=== PATIENT | male | born 1980 | race Caucasian/White ===

== ENCOUNTER 2020-02-23 02:58 | Outpatient (RCR) | payer BC, SELFPAY | END 2020-02-26 23:59 | disposition home or self-care (01) | LOC: INF 02:58 | PROVIDERS: PCP Nurse Practitioner Family; Visit Provider Internal Medicine Hematology & Oncology | DX: Z53.9 Procedure and treatment not carried out, unspecified reason (principal) ==

== ENCOUNTER 2020-03-27 02:01 | Outpatient (RCR) | payer BC, SELFPAY ==
[2020-02-28] MEDS: Normal Saline Flush 10 ML SYR IVP (10:17)
[2020-02-28] MEDS: Heparin 500 UNITS/5 ML SYRINGE IV (10:18)
[2020-02-28 10:22] LABS: Abs Immature Grans 0.03 10^3/uL (0.0-0.06); Absolute Basophil Count 0.04 10^3/uL (0.0-0.2); Absolute Eosinophil Count 0.44 10^3/uL (0.0-0.7); Absolute Lymphocyte Count 2.18 10^3/uL (1.2-3.4); Absolute Monocyte Count 0.47 10^3/uL (0.1-0.8); Absolute Neutrophil Count 3.96 10^3/uL (1.2-6.7); Basophils % 0.6; Eosinophils % 6.2; HCT 40.5 % (40.0-50.0); HGB 13.7 g/dL (13.5-17.5); Immature Grans % 0.4; Lymphocytes % 30.6; MCH 29.1 pg (27.0-33.0); MCHC 33.8 % (32.0-36.0); MCV 86.2 fL (80-95); MPV 8.8 fL (8.0-11.0); Monocytes % 6.6; Neutrophils % 55.6; Nucleated RBC 0 %; Platelet Count 270 10^3/uL (130-400); RDW 12.7 % (11.8-14.1); RDW-SD 40.4 fL; WBC 7.12 10^3/uL (4.4-10.8)
[2020-02-28 10:34] LABS: ALT 63 U/L (16-63); AST 31 U/L (15-37); Albumin 3.7 g/dL (3.4-5.0); Alkaline Phosphatase 104 U/L (46-116); Anion Gap 6.7 mmol/L (3-11); BUN 19 mg/dL (7-18); Bilirubin, Total 0.5 mg/dL (0.2-1.0); CO2 27.3 mmol/L (21.0-32.0); CREATININE 0.95 mg/dL (0.70-1.30); Calcium 8.9 mg/dL (8.5-10.1); Chloride 103 mmol/L (98-107); Glucose 88 mg/dL (74-106); Potassium 4.2 mmol/L (3.5-5.1); Sodium 137 mmol/L (136-145); Total Protein 7.9 g/dL (6.4-8.2)
[2020-03-06 09:31] LABS: Abs Immature Grans 0.04 10^3/uL (0.0-0.06); Absolute Basophil Count 0.03 10^3/uL (0.0-0.2); Absolute Eosinophil Count 0.15 10^3/uL (0.0-0.7); Absolute Lymphocyte Count 1.37 10^3/uL (1.2-3.4); Absolute Monocyte Count 0.73 10^3/uL (0.1-0.8); Absolute Neutrophil Count 7.14 10^3/uL (1.2-6.7); Basophils % 0.3; Eosinophils % 1.6; HCT 39.9 % (40.0-50.0); HGB 13.8 g/dL (13.5-17.5); Immature Grans % 0.4; Lymphocytes % 14.5; MCH 29.2 pg (27.0-33.0); MCHC 34.6 % (32.0-36.0); MCV 84.5 fL (80-95); MPV 8.8 fL (8.0-11.0); Monocytes % 7.7; Neutrophils % 75.5; Nucleated RBC 0 %; Platelet Count 313 10^3/uL (130-400); RBC 4.72 10^6/uL (4.36-5.78); RDW 12.2 % (11.8-14.1); RDW-SD 37.4 fL; WBC 9.46 10^3/uL (4.4-10.8)
[2020-03-06 09:54] LABS: ALT 47 U/L (16-63); AST 21 U/L (15-37); Albumin 3.6 g/dL (3.4-5.0); Alkaline Phosphatase 99 U/L (46-116); Anion Gap 8.6 mmol/L (3-11); BUN 25 mg/dL (7-18); Bilirubin, Total 0.7 mg/dL (0.2-1.0); CO2 28.4 mmol/L (21.0-32.0); CREATININE 1.01 mg/dL (0.70-1.30); Calcium 8.8 mg/dL (8.5-10.1); Chloride 102 mmol/L (98-107); Glucose 83 mg/dL (74-106); Magnesium 1.8 mg/dL (1.8-2.4); Potassium 3.9 mmol/L (3.5-5.1); Sodium 139 mmol/L (136-145); Total Protein 7.7 g/dL (6.4-8.2)
[2020-03-06] MEDS: Normal Saline Flush 10 ML SYR IVP (09:57)
[2020-03-13 10:01] LABS: Abs Immature Grans 0.02 10^3/uL (0.0-0.06); Absolute Basophil Count 0.05 10^3/uL (0.0-0.2); Absolute Eosinophil Count 0.14 10^3/uL (0.0-0.7); Absolute Lymphocyte Count 0.71 10^3/uL (1.2-3.4); Absolute Monocyte Count 0.68 10^3/uL (0.1-0.8); Absolute Neutrophil Count 6.24 10^3/uL (1.2-6.7); Basophils % 0.6; Eosinophils % 1.8; HCT 37.3 % (40.0-50.0); Immature Grans % 0.3; Lymphocytes % 9.1; MCH 29.1 pg (27.0-33.0); MCHC 34.9 % (32.0-36.0); MCV 83.4 fL (80-95); MPV 9.1 fL (8.0-11.0); Monocytes % 8.7; Neutrophils % 79.5; Nucleated RBC 0 %; Platelet Count 322 10^3/uL (130-400); RBC 4.47 10^6/uL (4.36-5.78); RDW 11.8 % (11.8-14.1); RDW-SD 35.7 fL; WBC 7.84 10^3/uL (4.4-10.8)
[2020-03-13 10:18] LABS: ALT 40 U/L (16-63); AST 19 U/L (15-37); Albumin 3.7 g/dL (3.4-5.0); Alkaline Phosphatase 94 U/L (46-116); Anion Gap 7.8 mmol/L (3-11); BUN 25 mg/dL (7-18); Bilirubin, Total 0.6 mg/dL (0.2-1.0); CO2 28.2 mmol/L (21.0-32.0); Calcium 9.4 mg/dL (8.5-10.1); Chloride 100 mmol/L (98-107); Glucose 99 mg/dL (74-106); Potassium 4.1 mmol/L (3.5-5.1); Sodium 136 mmol/L (136-145); Total Protein 8.2 g/dL (6.4-8.2)
[2020-03-13] MEDS: Normal Saline Flush 10 ML SYR IVP (10:25)
[2020-03-20] MEDS: Normal Saline Flush 10 ML SYR IVP (10:18)
[2020-03-20 10:28] LABS: Abs Immature Grans 0.02 10^3/uL (0.0-0.06); Absolute Basophil Count 0.03 10^3/uL (0.0-0.2); Absolute Eosinophil Count 0.21 10^3/uL (0.0-0.7); Absolute Lymphocyte Count 0.88 10^3/uL (1.2-3.4); Absolute Monocyte Count 0.47 10^3/uL (0.1-0.8); Absolute Neutrophil Count 4.08 10^3/uL (1.2-6.7); Basophils % 0.5; Eosinophils % 3.7; HCT 35.7 % (40.0-50.0); HGB 12.6 g/dL (13.5-17.5); Immature Grans % 0.4; Lymphocytes % 15.5; MCH 29.6 pg (27.0-33.0); MCHC 35.3 % (32.0-36.0); MPV 8.9 fL (8.0-11.0); Monocytes % 8.3; Neutrophils % 71.6; Nucleated RBC 0 %; Platelet Count 275 10^3/uL (130-400); RBC 4.25 10^6/uL (4.36-5.78); RDW 11.9 % (11.8-14.1); RDW-SD 35.2 fL; WBC 5.69 10^3/uL (4.4-10.8)
[2020-03-20 10:41] LABS: ALT 55 U/L (16-63); AST 26 U/L (15-37); Albumin 3.5 g/dL (3.4-5.0); Alkaline Phosphatase 94 U/L (46-116); Anion Gap 7.3 mmol/L (3-11); BUN 20 mg/dL (7-18); Bilirubin, Total 0.5 mg/dL (0.2-1.0); CO2 28.7 mmol/L (21.0-32.0); CREATININE 1.14 mg/dL (0.70-1.30); Chloride 100 mmol/L (98-107); Glucose 123 mg/dL (74-106); Magnesium 1.9 mg/dL (1.8-2.4); Potassium 3.7 mmol/L (3.5-5.1); Sodium 136 mmol/L (136-145); Total Protein 7.8 g/dL (6.4-8.2)
[2020-03-27 09:33] LABS: Abs Immature Grans 0.01 10^3/uL (0.0-0.06); Absolute Basophil Count 0.03 10^3/uL (0.0-0.2); Absolute Eosinophil Count 0.06 10^3/uL (0.0-0.7); Absolute Monocyte Count 0.36 10^3/uL (0.1-0.8); Absolute Neutrophil Count 3.22 10^3/uL (1.2-6.7); Basophils % 0.7; Eosinophils % 1.4; HCT 32.4 % (40.0-50.0); HGB 11.5 g/dL (13.5-17.5); Immature Grans % 0.2; MCH 29.9 pg (27.0-33.0); MCHC 35.5 % (32.0-36.0); MCV 84.2 fL (80-95); MPV 8.9 fL (8.0-11.0); Monocytes % 8.6; Neutrophils % 77.1; Nucleated RBC 0 %; Platelet Count 186 10^3/uL (130-400); RBC 3.85 10^6/uL (4.36-5.78); RDW 12.2 % (11.8-14.1); RDW-SD 35.6 fL; WBC 4.18 10^3/uL (4.4-10.8)
[2020-03-27 09:56] LABS: ALT 50 U/L (16-63); AST 23 U/L (15-37); Albumin 3.5 g/dL (3.4-5.0); Alkaline Phosphatase 86 U/L (46-116); BUN 20 mg/dL (7-18); Bilirubin, Total 0.6 mg/dL (0.2-1.0); CREATININE 1.03 mg/dL (0.70-1.30); Calcium 8.9 mg/dL (8.5-10.1); Chloride 102 mmol/L (98-107); Glucose 131 mg/dL (74-106); Magnesium 1.8 mg/dL (1.8-2.4); Potassium 3.7 mmol/L (3.5-5.1); Sodium 136 mmol/L (136-145); Total Protein 7.6 g/dL (6.4-8.2)
[2020-03-27] MEDS: Normal Saline Flush 10 ML SYR IVP (10:17)
== END 2020-03-27 23:59 | disposition home or self-care (01) ==
LOC: INF 02:01
PROVIDERS: PCP Nurse Practitioner Family; Visit Provider Internal Medicine Hematology & Oncology
DX: C09.9 Malignant neoplasm of tonsil, unspecified (principal); Z45.2 Encounter for adjustment and management of vascular access device
CPT/HCPCS: 36591; 80053; 83735; 85025

== ENCOUNTER 2020-04-17 01:44 | Outpatient (RCR) | payer BC, SELFPAY ==
[2020-04-03] MEDS: Normal Saline Flush 10 ML SYR IVP (09:49)
[2020-04-03 10:02] LABS: Abs Immature Grans 0.01 10^3/uL (0.0-0.06); Absolute Basophil Count 0.02 10^3/uL (0.0-0.2); Absolute Eosinophil Count 0.06 10^3/uL (0.0-0.7); Absolute Neutrophil Count 3.29 10^3/uL (1.2-6.7); Basophils % 0.5; Eosinophils % 1.4; HGB 10.9 g/dL (13.5-17.5); Immature Grans % 0.2; Lymphocytes % 11.7; MCH 29.6 pg (27.0-33.0); MCHC 35.2 % (32.0-36.0); MCV 84.2 fL (80-95); MPV 9.2 fL (8.0-11.0); Monocytes % 9.3; Neutrophils % 76.9; Nucleated RBC 0 %; Platelet Count 167 10^3/uL (130-400); RBC 3.68 10^6/uL (4.36-5.78); RDW-SD 36.8 fL; WBC 4.28 10^3/uL (4.4-10.8)
[2020-04-03 10:29] LABS: ALT 47 U/L (16-63); AST 23 U/L (15-37); Albumin 3.5 g/dL (3.4-5.0); Alkaline Phosphatase 97 U/L (46-116); BUN 23 mg/dL (7-18); Bilirubin, Total 0.6 mg/dL (0.2-1.0); CREATININE 1.13 mg/dL (0.70-1.30); Calcium 9.4 mg/dL (8.5-10.1); Chloride 100 mmol/L (98-107); Glucose 128 mg/dL (74-106); Magnesium 1.8 mg/dL (1.8-2.4); Potassium 3.7 mmol/L (3.5-5.1); Sodium 136 mmol/L (136-145)
[2020-04-10] MEDS: Normal Saline Flush 10 ML SYR IVP (09:35)
[2020-04-10 09:37] LABS: Abs Immature Grans 0.01 10^3/uL (0.0-0.06); Absolute Basophil Count 0.01 10^3/uL (0.0-0.2); Absolute Eosinophil Count 0.02 10^3/uL (0.0-0.7); Absolute Lymphocyte Count 0.51 10^3/uL (1.2-3.4); Absolute Monocyte Count 0.33 10^3/uL (0.1-0.8); Basophils % 0.3; Eosinophils % 0.6; HCT 30.6 % (40.0-50.0); HGB 10.9 g/dL (13.5-17.5); Immature Grans % 0.3; Lymphocytes % 15.5; MCH 30.8 pg (27.0-33.0); MCHC 35.6 % (32.0-36.0); MCV 86.4 fL (80-95); MPV 8.8 fL (8.0-11.0); Monocytes % 10.1; Neutrophils % 73.2; Nucleated RBC 0 %; Platelet Count 198 10^3/uL (130-400); RBC 3.54 10^6/uL (4.36-5.78); RDW 13.9 % (11.8-14.1); RDW-SD 41.6 fL; WBC 3.28 10^3/uL (4.4-10.8)
[2020-04-10 09:50] LABS: ALT 35 U/L (16-63); AST 18 U/L (15-37); Albumin 3.5 g/dL (3.4-5.0); Alkaline Phosphatase 89 U/L (46-116); Anion Gap 6.3 mmol/L (3-11); BUN 23 mg/dL (7-18); Bilirubin, Total 0.7 mg/dL (0.2-1.0); CO2 27.7 mmol/L (21.0-32.0); CREATININE 1.11 mg/dL (0.70-1.30); Calcium 9.3 mg/dL (8.5-10.1); Chloride 101 mmol/L (98-107); Glucose 94 mg/dL (74-106); Magnesium 1.7 mg/dL (1.8-2.4); Potassium 4.2 mmol/L (3.5-5.1); Sodium 135 mmol/L (136-145); Total Protein 8.6 g/dL (6.4-8.2)
[2020-04-17 12:24] LABS: Abs Immature Grans 0.01 10^3/uL (0.0-0.06); Absolute Basophil Count 0.01 10^3/uL (0.0-0.2); Absolute Eosinophil Count 0.04 10^3/uL (0.0-0.7); Absolute Monocyte Count 0.67 10^3/uL (0.1-0.8); Absolute Neutrophil Count 2.81 10^3/uL (1.2-6.7); Basophils % 0.2; HCT 29.2 % (40.0-50.0); HGB 10.5 g/dL (13.5-17.5); Immature Grans % 0.2; Lymphocytes % 12.4; MCH 31.3 pg (27.0-33.0); MCV 87.2 fL (80-95); MPV 8.2 fL (8.0-11.0); Monocytes % 16.6; Neutrophils % 69.6; Nucleated RBC 0 %; Platelet Count 195 10^3/uL (130-400); RBC 3.35 10^6/uL (4.36-5.78); RDW 15.3 % (11.8-14.1); RDW-SD 45.3 fL; WBC 4.04 10^3/uL (4.4-10.8)
[2020-04-17] MEDS: Normal Saline Flush 10 ML SYR IVP (12:28)
[2020-04-17 12:51] LABS: ALT 27 U/L (16-63); AST 15 U/L (15-37); Albumin 3.3 g/dL (3.4-5.0); Alkaline Phosphatase 90 U/L (46-116); Anion Gap 5.2 mmol/L (3-11); BUN 27 mg/dL (7-18); Bilirubin, Total 0.5 mg/dL (0.2-1.0); CO2 29.8 mmol/L (21.0-32.0); CREATININE 1.09 mg/dL (0.70-1.30); Calcium 9.2 mg/dL (8.5-10.1); Chloride 98 mmol/L (98-107); Glucose 117 mg/dL (74-106); Potassium 4.2 mmol/L (3.5-5.1); Sodium 133 mmol/L (136-145); Total Protein 8.4 g/dL (6.4-8.2)
== END 2020-04-27 23:59 | disposition home or self-care (01) ==
LOC: INF 01:44
PROVIDERS: PCP Nurse Practitioner Family; Visit Provider Internal Medicine Hematology & Oncology
DX: C09.9 Malignant neoplasm of tonsil, unspecified (principal); Z45.2 Encounter for adjustment and management of vascular access device
CPT/HCPCS: 36591; 80053; 83735; 85025

== ENCOUNTER 2020-04-24 15:21 | Outpatient (CLI) | payer BC, SELFPAY ==
--- NOTE | 2020-04-24 11:51 | DI.RAD_ITS ---
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 TECHNIQUE: 2D digital imaging was performed. COMPARISON: No exams were available for comparison FINDINGS: Heart size is normal. The mediastinum is not widened. Lungs are clear. No infiltrates nor pleural effusions. There are no ominous pulmonary nodules. Distal tip of the right sided Port-A-Cath is at the SVC-RA junction. IMPRESSION: No acute pulmonary findings.Distal tip of the right sided Port-A-Cath is in satisfactory position. DATA REPOSITORY: RADIATION DOSE DELIVERED:
== END 2020-04-24 15:41 ==
PROVIDERS: PCP Nurse Practitioner Family; Visit Provider Internal Medicine Hematology & Oncology
DX: C09.9 Malignant neoplasm of tonsil, unspecified (principal); R04.2 Hemoptysis
CPT/HCPCS: 71046

== ENCOUNTER 2020-05-01 03:10 | Outpatient (RCR) | payer BC, SELFPAY | END 2020-05-28 23:59 | disposition home or self-care (01) | LOC: INF 03:10 | PROVIDERS: PCP Nurse Practitioner Family; Visit Provider Internal Medicine Hematology & Oncology | DX: Z53.9 Procedure and treatment not carried out, unspecified reason (principal) ==

== ENCOUNTER 2020-06-26 02:21 | Outpatient (CLI) | payer BC, SELFPAY ==
--- NOTE | 2020-06-26 09:04 | DI.RAD_ITS ---
EXAM: XR CHEST 2V PA LATERAL CLINICAL HISTORY: ASPIRATION PNEUMONIA RLL,J69.0,CHEST TIGHTNESS,R07.89,H/O HEAD AND NECK CA, TECHNIQUE: 2D digital imaging was performed. COMPARISON: CR XR CHEST 2V PA LATERAL from 04/24/2020 FINDINGS: MEDIASTINUM: Normal. HEART: Normal. PULMONARY VASCULATURE: Normal. LUNGS: Clear. PLEURAL SPACE: No pleural effusion or pneumothorax. BONE:Within normal limits for the patient's age. OTHER FINDINGS:The tip of the indwelling central venous catheter is in good position at the junction of the superior vena cava and right atrium. IMPRESSION: No acute pulmonary findings. DATA REPOSITORY: RADIATION DOSE DELIVERED:
== END 2020-06-26 02:41 ==
PROVIDERS: PCP Nurse Practitioner Family; Visit Provider Internal Medicine Hematology & Oncology
DX: R07.89 Other chest pain (principal); J69.0 Pneumonitis due to inhalation of food and vomit; Z85.89 Personal history of malignant neoplasm of other organs and systems
CPT/HCPCS: 71046

== ENCOUNTER 2021-12-10 16:00 | Outpatient (CLI) | payer BC, SELFPAY ==
[2021-12-10 17:20] LABS: TSH 36.43 uIU/mL (0.36-3.74)
== END 2021-12-10 16:01 | disposition home or self-care (01) ==
LOC: LBO 16:02
PROVIDERS: PCP Nurse Practitioner Family; Visit Provider Internal Medicine Hematology & Oncology
DX: I73.00 Raynaud's syndrome without gangrene (principal); K11.7 Disturbances of salivary secretion
CPT/HCPCS: 36415; 84443

== ENCOUNTER 2024-05-10 03:14 | Outpatient (CLI) | payer BC, SELFPAY ==
[2024-05-10 08:45] LABS: Abs Immature Grans 0.03 10^3/uL (0.0-0.06); Absolute Basophil Count 0.05 10^3/uL (0.0-0.2); Absolute Eosinophil Count 0.35 10^3/uL (0.0-0.7); Absolute Lymphocyte Count 1.47 10^3/uL (1.2-3.4); Absolute Monocyte Count 0.46 10^3/uL (0.1-0.8); Basophils % 0.7 %; Eosinophils % 4.6 %; HCT 45.1 % (40.0-50.0); HGB 14.9 g/dL (13.5-17.5); Immature Grans % 0.4 %; Lymphocytes % 19.4 %; MCV 85 fL (80-95); MPV 8.1 fL (8.0-11.0); Monocytes % 6.1 %; Neutrophils % 68.8 %; Platelet Count 379 10^3/uL (130-400); RBC 5.32 10^6/uL (4.36-5.78); RDW 12.8 % (11.8-14.1); RDW-SD 39.3 fL; WBC 7.56 10^3/uL (4.4-10.8)
[2024-05-10 09:14] LABS: ALT 36 U/L (16-63); AST 67 U/L (15-37); Albumin 3.1 g/dL (3.4-5.0); Alkaline Phosphatase 118 U/L (46-116); BUN 21 mg/dL (7-18); Bilirubin, Total 0.47 mg/dL (0.2-1.0); CREATININE 1.4 mg/dL (0.70-1.30); Calcium 9.6 mg/dL (8.5-10.1); Chloride 105 mmol/L (98-107); Estimated GFR 64.36 (mL/min/1.73m2); FREE T4 0.89 ng/dL (0.76-1.46); Glucose 95 mg/dL (74-106); Potassium 4.7 mmol/L (3.5-5.1); Sodium 141 mmol/L (136-145); TSH 10.14 uIU/mL (0.36-3.74); Total Protein 7.5 g/dL (6.4-8.2)
== END 2024-05-10 03:15 | disposition home or self-care (01) ==
LOC: LBO 03:15
PROVIDERS: PCP Family Medicine; Visit Provider Internal Medicine Hematology
DX: C34.91 Malignant neoplasm of unspecified part of right bronchus or lung (principal); Z79.899 Other long term (current) drug therapy
CPT/HCPCS: 36415; 80053; 84439; 84443; 85025

== ENCOUNTER 2024-05-14 09:51 | Inpatient (IN) | payer BC, SELFPAY ==
[2024-05-14] VITALS (41 sets, daily range): BP systolic 90–148; BP diastolic 60–88; PULSE 79–102; RESP 9–25; TEMP 36.3–37.3; O2SAT 81–100
--- NOTE | 2024-05-14 | DI.RAD_ITS ---
Exam(s) XR PORTABLE CHEST AP EXAM: XR PORTABLE CHEST AP CLINICAL HISTORY: Right-sided thoracentesis TECHNIQUE: 2D digital imaging was performed of the chest. One image was obtained. An AP view was ob tained. COMPARISON: CR XR CHEST 2V PA LATERAL from 05/14/2024 FINDINGS: MEDIASTINUM: Normal. HEART: Normal. PULMONARY VASCULATURE: Normal. LUNGS: The right lung is clear. PLEURAL SPACE: There is been interval decrease in size of the right pleural effusion following thorac entesis. There remains, however, a large effusion occupying half of the right hemithorax. No left p leural effusion is seen. There is no pneumothorax. BONE:Within normal limits for the patient's age. OTHER FINDINGS:Normal. IMPRESSION: Interval decrease in size of the right pleural effusion following thoracentesis. There remains, shields zoe, a large persistent right pleural effusion occupying half of the right hemithorax. No pneumothor ax. DATA REPOSITORY: RADIATION DOSE DELIVERED:
--- NOTE | 2024-05-14 09:45 | RT.EKG_ITS ---
APPROVED REPORT Exam: Resting ECG Reason for Exam: Dyspnea Patient Location: E HR:101 bpm ECG Measurements Heart Rate 101 AXIS MD 130 P 56 QRSd 100 QRS 123 QT 330 T 15 QTc 427 Conclusion Sinus tachycardia...rate> 99
--- NOTE | 2024-05-14 10:11 | ED.GENADUL_ITS ---
Discharge Plan Disposition Patient Disposition: Admit to [facility] Condition: Fair Discharge Details Clinical Impression: Pleural effusion on right, Lung cancer, Respiratory failure Primary Care Provider: Jose Angel Hopkins ED Provider: Kurt Martino [place] Meds and New Rx's Prescriptions: Continued albuterol sulfate 90 mcg/actuation HFA aerosol inhaler 2 puff inhalation Q6H PRN amlodipine 5 mg tablet 5 mg PO DAILY cyclobenzaprine 10 mg tablet 10 mg PO HS PRN levothyroxine 50 mcg capsule 100 mcg PO DAILY venlafaxine 75 mg tablet 75 mg PO DAILY folic acid 1 mg tablet 1 mg PO DAILY Patient Comments: TAKE ONE TABLET BY MOUTH EVERY DAY prednisone 10 mg tablet 10 mg PO DIRECTED PRN Patient Comments: START BY TAKING 6 TABLETS BY MOUTH FOR 2 DAYS, THEN DECREASE TO 5 TABLETS FOR 2 DAYS, THEN TO 4 TABLETS FOR 2 DAYS, THEN TO 3 TABLETS FOR 2 rosuvastatin 20 mg tablet 20 mg PO DAILY Patient Comments: TAKE ONE TABLET BY MOUTH EVERY DAY prochlorperazine maleate 10 mg tablet 10 mg PO Q6H PRN Patient Comments: TAKE ONE TABLET BY MOUTH EVERY 6 HOURS NEEDED Discharge Data Discharge Physician: Kurt Martino HPI General Date/Time Provider Initiated Documentation: 05/14/24 10:11 . 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 Reports decreased appetite fatigue chills and shortness of breath today. Denies any chest pain Related Data Home Medications ?Medication ?Instructions ?Recorded ?Confirmed albuterol sulfate 90 mcg/actuation 2 puff inhalation Q6H PRN 12/15/23 05/14/24 aerosol inhaler amlodipine 5 mg tablet 5 mg PO DAILY 12/15/23 05/14/24 cyclobenzaprine 10 mg tablet 10 mg PO HS PRN 12/15/23 05/14/24 levothyroxine 50 mcg capsule 100 mcg PO DAILY 12/15/23 05/14/24 venlafaxine 75 mg tablet 75 mg PO DAILY 12/15/23 05/14/24 folic acid 1 mg tablet 1 mg PO DAILY 05/14/24 05/14/24 prednisone 10 mg tablet 10 mg PO DIRECTED PRN 05/14/24 05/14/24 prochlorperazine maleate 10 mg 10 mg PO Q6H PRN 05/14/24 05/14/24 tablet rosuvastatin 20 mg tablet 20 mg PO DAILY 05/14/24 05/14/24 Allergies Allergy/AdvReac Type Severity Reaction Status Date / Time No Known Allergies Allergy Verified 05/14/24 10:03 General Stated Complaint: SOB INES: 2 Review of Systems Narrative: Review of Systems: Constitutional: No fevers, chills, sweats Eye: No recent visual problems ENT: No ear pain, nasal congestion, sore throat Respiratory: No shortness of breath, cough Cardiovascular: No Chest pain, palpitations, syncope Gastrointestinal: Reports episodes of nausea vomiting, diarrhea Genitourinary: No hematuria Jeff/Lymph: Negative for bruising tendency, swollen lymph glands Endocrine: Negative for excessive thirst, excessive hunger Musculoskeletal: No back pain, neck pain, joint pain, muscle pain, decreased range of motion Integumentary: No rash, pruritus, abrasions Neurologic: Alert & oriented X 4 Psychiatric: No anxiety, depression Gastrointestinal Gastrointestinal: Reports nausea Exam Narrative Exam Narrative: Exam; vitals signs as reported above normal Constitutional; In no acute distress, afebrile General: cooperative, healthy appearing, comfortable and no acute distress HEENT: Head: normal to inspection, no palpable skull fracture and normocephalic atraumatic Eyes: : appearance normal, both eyes and all related structures EOM intact bilaterally Pupils: PERRL : conjunctiva normal Direct ophthalmoscopy: normal light reflex, normal conjunctiva, normal visual acuity Ears: Normal TM, normal external canal Nose: normal no rhinorreha Neck no JVD, supple non tender Neck: normal visual inspection, full ROM and no lymphadenopathy Chest: normal inspection of the chest Respiratory : normal respiratory effort and able to speak in complete sentences no wheezing absent breath sounds in the right lung field Cardio Rate: regular rate, rhythm: regular rhythm normal heart sounds S1 and S2 no murmurs, gallops, or rubs GI : normal to inspection, normal bowel sounds, soft, non tender, non distended, no organomegaly Back/Spine/ no CVA tenderness Thoracic/Lumbar Spine: no tenderness or deformities Skin no rashes or lesions Neuro: patient alert oriented x 4 and no meningeal signs, Cranial Nerves: CN's II-XI intact bilaterally, Cognition: normal cognition, Speech: speech normal, Gait: normal gait, Depp tendon reflexes normal 2+ muscle strength 5/5 bilaterally Extremities, no edema, full range of motion, normal strength Course Patient with hypoxia and tachycardia with absent breath sounds in the right lung base concerned of a pneumonia or pleural effusion. Reevaluation(s) Time: 13:53 Reevaluation: Patient feels better when he is sitting up but it worsens when he lays flat probably due to a large pleural effusion that was detected on the [id number] ultrasound and x-ray Consultations Consultation #1: Dr. Jacob Taveras hospitalist Time: 13:00 Consultation #2: Oncology Time: 11:00 Vital Signs Vital signs: Vital Signs Pulse 100 H 05/14/24 09:56 Respiratory Rate 20 05/14/24 09:56 Blood Pressure 134/81 05/14/24 09:56 Pulse Oximetry 97 05/14/24 09:56 Pulse 100 H 05/14/24 09:56 Respiratory Rate 20 05/14/24 09:56 Blood Pressure 134/81 05/14/24 09:56 Pulse Oximetry 97 05/14/24 09:56 Oxygen Delivery Method Room Air 05/14/24 09:56 Oxygen Flow Rate 0 05/14/24 09:56 Pain Level 2 05/14/24 09:56 Medical Decision Making MDM: Summary: Patient presents emergency department with shortness of breath and has worsening hypoxia when he lays flat with increase in his heart rates and decrease in his blood pressure which improves when he sits up. [id number]-[id number] ultrasound shows a very large pleural effusion and the probably shift of the mediastinum to the left when he lays flat compressing the IVC and decreasing his preload and decreasing the cardiac output increasing the heart rate. Patient has a history of adenocarcinoma recently diagnosed and he has been treated with chemotherapy and immunotherapy. White blood cell count is normal lactic acid is normal and there is no signs of sepsis but this pleural effusion can be due to the tumor lysis or reactive to adenocarcinoma of the lung that he has on the right. He will need to be admitted to the hospital for large volume thoracentesis. Data Review Analysis All the data on this patient was reviewed by me including laboratory and imaging studies as well as bedside studies performed by me Independent review of Studies Imaging [id number] ultrasound as described above and x-ray Lab: Labs are unremarkable Risk Stratification: patient with a very large pleural effusion in the right lung will need drainage to improve his oxygenation Differential Diagnosis: 1. Right pleural effusion 2. Pneumonia 3. Pericardial effusion 4. Pneumothorax 5. Consultants: I have consulted with Dr. Taveras in [place] and will admit to the hospital I also consulted with the oncologist who agreed for admission Shared disposition: Patient understands disposition and he was agree Impression: Medical Records Medical records reviewed: Yes I reviewed the patient's medical records. Lab Data Lab results reviewed: Yes I reviewed the patient's lab results. ECG Data Attestation: I personally reviewed and interpreted this ECG (s) as follows: Prior ECG tracings: available for review Quality:SDOH Health Related Social Needs: Health related social needs problems with daily activi ties (Z73.9) PFSH All Active Problems (Updated 05/14/24 @ 13:51 by Kurt Martino MD) Respiratory failure (Acute) Lung cancer (Chronic) Pleural effusion on right (Acute) Xerostomia (Acute) Tongue ulcer (Acute) Medical History Hypothyroid Urinary urgency Xerodermia Raynauds disease Pneumonia Oropharyngeal dysphagia Malignant tumor of tonsil Drug-induced nausea and vomiting Depression Dehydration Choking due to phlegm in larynx Asthma Aspiration pneumonia Surgical History (Updated 01/19/24 @ 11:04 by Jose Roberto Cox MD) Hx of tonsillectomy , 2020 History of laryngoscopy Social History (Updated 12/25/23 @ 15:13 by Maria Alejandra Vidal) Smoking/Tobacco Use Status: Never Smoking risk assessment performed?: Yes Alcohol Intake: former Drug use: Never Household members: spouse and family Housing: apartment Do you feel safe at home: Yes Do you feel safe in your relationship?: Yes POCUS Exam (ED) Limited Cardiac Exam DATE OF EXAM: 05/14/24 TIME OF EXAM: 11:48 PROVIDER THAT PERFORMED THE STUDY: Kurt Martino IS THIS A REPEAT EXAM DURING THIS ENCOUNTER: no REASON FOR EXAM: Dyspnea, Evaluation of LV function and Hypotension VISUALIZED STRUCTURES: Four Chambers, Left atrium, Left ventricle, LVOT, Right atrium, Right ventricle, Aortic valve, Mitral valve, Interventricular septum and IVC VIEW OBTAINED: Apical 4-Chamber, Parasternal long-axis, Parasternal short-axis, Subxiphoid and Other PERTINENT FINDINGS/IMPRESSION: No apparent abnormalities INCIDENTAL FINDINGS: Large right pleural effusion Exam complete Limited Thoracic Lung Exam DATE OF EXAM: 05/14/24 TIME OF EXAM: 11:55 PROVIDER THAT PERFORMED THE STUDY: Kurt Martino IS THIS A REPEAT EXAM DURING THIS ENCOUNTER: No REASON FOR EXAM: Hypoxia and Shortness ofBreath VISUALIZED STRUCTURES: right anterior, left anterior, right lateral, left lateral, right posterior and left posterior PERTINENT FINDINGS/IMPRESSION: Right pleural effusion Exam complete
[2024-05-14 10:46] LABS: Lactate 0.6 mmol/L (0.6-1.4)
[2024-05-14 10:49] LABS: TCO2 (Venous) 19 mmol/L (24-29); pCO2 (Venous) 31 mmHg (41-51); pH (Venous) 7.45 (7.31-7.41); pO2 (Venous) 51 mmHg
[2024-05-14 10:50] LABS: BE (Venous) -3 mmol/L (-2-3); HCO3 (Venous) 22 mmol/L (23-28); O2 Sat (Venous) 90 %
[2024-05-14 10:51] LABS: Abs Immature Grans 0.04 10^3/uL (0.0-0.06); Absolute Basophil Count 0.03 10^3/uL (0.0-0.2); Absolute Eosinophil Count 0.27 10^3/uL (0.0-0.7); Absolute Lymphocyte Count 0.49 10^3/uL (1.2-3.4); Absolute Monocyte Count 0.13 10^3/uL (0.1-0.8); Absolute Neutrophil Count 7.51 10^3/uL (1.2-6.7); Basophils % 0.4 %; Eosinophils % 3.2 %; HCT 44.1 % (40.0-50.0); HGB 14.6 g/dL (13.5-17.5); Immature Grans % 0.5 %; Lymphocytes % 5.8 %; MCH 27.9 pg (27.0-33.0); MCHC 33.1 % (32.0-36.0); MCV 84 fL (80-95); MPV 8.7 fL (8.0-11.0); Monocytes % 1.5 %; Neutrophils % 88.6 %; Platelet Count 318 10^3/uL (130-400); RBC 5.24 10^6/uL (4.36-5.78); RDW 12.7 % (11.8-14.1); RDW-SD 38.9 fL; WBC 8.47 10^3/uL (4.4-10.8)
[2024-05-14 11:01] LABS: INR 1.1 (0.9-1.1); Prothrombin Time 10.8 sec (9.1-11.1)
--- NOTE | 2024-05-14 11:03 | DI.RAD_ITS ---
Exam(s) XR CHEST 2V PA LATERAL EXAM: XR CHEST 2V PA LATERAL CLINICAL HISTORY: sob TECHNIQUE: 2D digital imaging was performed. Two views. COMPARISON: CR XR CHEST 2V PA LATERAL from 06/26/2020 FINDINGS: HEART: Normal size. Aorta: Not dilated. PULMONARY VASCULATURE: Normal. MEDIASTINUM: Unremarkable. LUNGS: Clear. PLEURAL SPACE: Large right pleural effusion. Mild right to left midline shift. No left pleural effu pippa. No pneumothorax. BONE:Unremarkable for age. SOFT TISSUES: Unremarkable. IMPRESSION: Large right pleural effusion. DATA REPOSITORY: RADIATION DOSE DELIVERED:
[2024-05-14 11:06] LABS: ALT 81 U/L (16-63); AST 62 U/L (15-37); Albumin 2.9 g/dL (3.4-5.0); Alkaline Phosphatase 114 U/L (46-116); BUN 24 mg/dL (7-18); Bilirubin, Total 1.16 mg/dL (0.2-1.0); CREATININE 1.2 mg/dL (0.70-1.30); Calcium 9.1 mg/dL (8.5-10.1); Chloride 100 mmol/L (98-107); Estimated GFR 77.43 (mL/min/1.73m2); Glucose 102 mg/dL (74-106); Potassium 3.8 mmol/L (3.5-5.1); Sodium 136 mmol/L (136-145); Total Protein 7.7 g/dL (6.4-8.2)
[2024-05-14] MEDS: Normal Saline 1,000 ML 1000 ML IV (11:14)
[2024-05-14 11:17] LABS: Procalcitonin 0.16 ng/mL
[2024-05-14 11:28] LABS: COVID-19 PCR Negative (Negative); Influenza A PCR Negative (Negative); Influenza B PCR Negative (Negative); RSV PCR Negative (Negative)
[2024-05-14 11:30] LABS: Source Nasopharynx
[2024-05-14 12:23] LABS: Bilirubin Negative (Negative); Blood Trace-lysed (Negative); Clarity Clear (Clear); Glucose Negative (Negative); Ketones Negative (Negative); Leukocyte Esterase Negative (Negative); Nitrite Negative (Negative); Specific Gravity 1.015 (1.005-1.025); Urobilinogen 0.2 mg/dL (Up to 0.2)
[2024-05-14 12:32] LABS: Bacteria Negative HPF (Negative); C & S Indicated? No; Casts Negative LPF (Negative); Crystals Negative HPF (Negative); Epithelial Cells Rare HPF (Negative); Mucus Negative (Negative); RBC 0-2 HPF (0-2); WBC 0-2 HPF (0-5)
--- NOTE | 2024-05-14 13:26 | HPE_ITS ---
Date of service: 05/14/24 Time of Service: 13:27 Assessment and Plan Assessment and plan (1) Respiratory failure: Status: Acute Assessment and plan: Most likely due to the pleural effusion Surgery consult ongoing Thoracentesis completed - 2650 mL X-ray status postprocedure still showed a large amount of fluid Pain management: APAP and as needed morphine but patient reluctant due to nausea vomiting with opioids?as needed Zofran also ordered Consider repeating x-ray in the morning if patient's condition worsens IS Physical therapy for safe discharge (2) Pleural effusion on right: Status: Acute Assessment and plan: As seen on x-ray and as above Please read Dr. Dowling's notes (3) Lung cancer: Status: Chronic Assessment and plan: Adenocarcinoma of the right lung diagnosed on March 2024 Continue outpatient follow-up with oncology Discussed with Dr. 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 Workup in the ED showed a large right pleural effusion with mild right to left midline shift, VBG showed a pH of 7.45, pCO2 of 31 and a bicarb of 22, BUN and creatinine of 24 and 1.2, slight transaminitis with total bilirubin at 1.16. The ED provider noted that the patient became hypotensive and tachycardic in the supine position so reported that discussed the case with oncology who recommended thoracentesis. Hospitalist was consulted and the patient admitted to the medical surgical floor for evaluation and management of shortness of breath and respiratory failure due to right-sided pleural effusion with midline shift while awaiting thoracentesis.the hospitalist team informed Dr. Martino that they would consult surgery for thoracentesis. Dr. Dowling was contacted and decided to directly move the patient from the ER to the OR to proceed to the thoracentesis. As per Dr. Dowling the thoracentesis total volume was about 2650 mL. When met on the floor the patient confirmed that he was a full code. Initially the patient had increased shortness of breath over the past few days, nausea at home vomiting but at this time does not report any of the symptoms. The patient denied objective fevers, headache, hemoptysis, visceral chest pain, but reported pain with coughing. The patient denied diarrhea or dysuria but reported constipation. Review of Systems All systems reviewed & are unremarkable except as noted in HPI and below PFSH All Active Problems (Updated 05/14/24 @ 13:51 by Kurt Martino MD) Respiratory failure (Acute) Lung cancer (Chronic) Pleural effusion on right (Acute) Xerostomia (Acute) Tongue ulcer (Acute) Medical History Hypothyroid Urinary urgency Xerodermia Raynauds disease Pneumonia Oropharyngeal dysphagia Malignant tumor of tonsil Drug-induced nausea and vomiting Depression Dehydration Choking due to phlegm in larynx Asthma Aspiration pneumonia Surgical History (Updated 01/19/24 @ 11:04 by Jose Roberto Cox MD) Hx of tonsillectomy 2019 History of laryngoscopy Social History (Updated 12/25/23 @ 15:13 by Maria Alejandra Vidal) Smoking/Tobacco Use Status: Never Smoking risk assessment performed?: Yes Alcohol Intake: former Drug use: Never Household members: spouse and family Housing: house Do you feel safe at home: Yes Do you feel safe in your relationship?: Yes Meds Allergies and Home Medications Allergies Allergy/AdvReac Type Severity Reaction Status Date / Time No Known Allergies Allergy Verified 05/14/24 10:03 Home Medications ?Medication ?Instructions ?Recorded ?Confirmed ?Type albuterol sulfate 90 mcg/actuation 2 puff inhalation Q6H PRN 12/15/23 05/14/24 History aerosol inhaler amlodipine 5 mg tablet 5 mg PO DAILY 12/15/23 05/14/24 History cyclobenzaprine 10 mg tablet 10 mg PO HS PRN 12/15/23 05/14/24 History levothyroxine 50 mcg capsule 100 mcg PO DAILY 12/15/23 05/14/24 History folic acid 1 mg tablet 1 mg PO DAILY 05/14/24 05/14/24 History prednisone 10 mg tablet 10 mg PO DIRECTED PRN 05/14/24 05/14/24 History prochlorperazine maleate 10 mg 10 mg PO Q6H PRN 05/14/24 05/14/24 History tablet rosuvastatin 20 mg tablet 20 mg PO DAILY 05/14/24 05/14/24 History venlafaxine 75 mg capsule,extended 75 mg PO DAILY 05/14/24 05/14/24 History release 24 hr Exam Narrative Exam Narrative: Constitutional The patient in bed comfortable without acute distress, episodic non- productive cough- causing pain HENMT: Facial structures with normal appearance Neuro:alert and oriented to self, person, place, time and situation. No neurological focal deficit Chest:Chest is symmetrical and normal appearance Resp: Normal respiratory pattern, speaks in 5-7 word-sentences, unlabored breathing at rest, clear upper lung bilaterally, decreased right lower lobes Cardio:Telemetry on, regular rhythm, S1, S2, no murmur GI: Abdomen is not distended, soft and non tender, bowel sounds are present : Negative Costovertebral angle tenderness Back/spine/Pelvis: No back tenderness, normal alignment Integumentary: thoracentesis site w band-aid - minimal limited drainage Psych: RASS 0, congruent mood and normal affect. Results Labs 05/14/24 10:20 05/14/24 10:20 Labs: Laboratory Results - last 24 hr 05/14/24 05/14/24 05/14/24 10:20 10:42 12:15 WBC 8.47 RBC 5.24 Hgb 14.6 Hct 44.1 MCV 84 MCH 27.9 MCHC 33.1 RDW 12.7 Plt Count 318 MPV 8.7 Immature Gran % 0.5 Neutrophils % 88.6 Lymphocytes % 5.8 Monocytes % 1.5 Eosinophils % 3.2 Basophils % 0.4 Nucleated RBC % 0.0 Absolute Neutrophils 7.51 H Absolute Lymphocytes 0.49 L Absolute Monocytes 0.13 Absolute Eosinophils 0.27 Absolute Basophils 0.03 PT 10.8 INR 1.1 VBG pH 7.45 H VBG pCO2 31 L VBG pO2 51 VBG HCO3 22 L VBG Total CO2 19 L VBG O2 Saturation 90 VBG Base Excess -3 L VBG Lactate 0.6 Sodium 136 Potassium 3.8 Chloride 100 Carbon Dioxide 30.0 Anion Gap 6.0 BUN 24 H Creatinine 1.2 Est GFR (CKD-EPI 2020) 77.43 Glucose 102 Calcium 9.1 Total Bilirubin 1.16 H AST 62 H ALT 81 H Alkaline Phosphatase 114 Total Protein 7.7 Albumin 2.9 L Procalcitonin 0.16 Urine Color Yellow Urine Clarity Clear Urine pH 6.0 Ur Specific Bryant 1.015 Urine Protein Negative Urine Ketones Negative Urine Blood Trace-lysed H Urine Nitrite Negative Urine Bilirubin Negative Urine Urobilinogen 0.2 Ur Leukocyte Esterase Negative Urine RBC 0-2 Urine WBC 0-2 Ur Epithelial Cells Rare Urine Crystals Negative Urine Bacteria Negative Urine Casts Negative Urine Mucus Negative Ur Culture Indicated? No Urine Glucose Negative COVID-19 Source Nasopharynx SARS-CoV-2 (PCR) Negative Influenza Type A (PCR) Negative Influenza Type B (PCR) Negative RSV (PCR) Negative Last Vital Signs Temp 36.5 C 05/14/24 11:26 Pulse 86 05/14/24 11:31 Resp 18 05/14/24 11:31 BP 130/60 05/14/24 11:31 Pulse Ox 95 05/14/24 11:31 Time Spent Time spent with Patient: >75 minutes Time was spent: preparing to see the patient(eg.review tests), obtaining and/or reviewing separately otained hiistory, ordering medications,tests, procedures, referring, communicating with other health career placement services counselor, indepentently interpreting results, counseling the patient and care coordination
[2024-05-14] MEDS: Inhaler, Assist Device 1 EACH MC (13:48)
--- NOTE | 2024-05-14 15:07 | W.PM.OP ---
Operative Note Operative Note PRE-OP DIAGNOSIS: Right-sided malignant pleural effusion POST-OP DIAGNOSIS: same PROCEDURE: Right-sided thoracentesis SURGEON: Zion Dowling ANESTHESIA TYPE: Local By Surgeon Refer to Anesthesia Record ESTIMATED BLOOD LOSS: 5 PATHOLOGY: other (Fluid for Gram stain and culture) COMPLICATIONS: None Patient was transported to: floor Patient's condition: stable Indications: Zen is a 43-year-old male with a right sided lung cancer. He recently started on radiation therapy. Comes to the emergency department with increasing shortness of breath and fatigue, was found to have a new massive right-sided pleural effusion. Findings: Simple appearing right-sided pleural effusion Procedure Description: I reviewed the indications for the procedure with Zen and his . I explained the risks and the benefits. Zen was able to provide informed consent. Next, we moved to the procedure room. Zen was assisted to a seated position, with appropriate padding and support. I performed a limited ultrasound of the right hemithorax confirming the presence of a large right-sided pleural effusion. Next, I prepped and draped the right side of his back around the mid scapular line at approximately the ninth interspace. I established a generous field block using local anesthetic. I made a small skin incision, then advanced a 5 [place]i thoracentesis needle and catheter system into the pleural space. Straw-colored effusion was aspirated, and the catheter was gently advanced. The needle was removed, and a specimen was obtained for Gram stain and culture. Next, the Vacutainer device is were used to drain the effusion. Once this was complete, the catheter was removed under aspiration, and a Band-Aid was used to dress the access site. Zen was assisted to a seated position. He tolerated the procedure well. In total, we drained 2650 mL of fluid. Date of Procedure: 05/14/24
[2024-05-14] MEDS: Acetaminophen 325 MG TAB 650 MG PO ×2 (16:06→23:22)
[2024-05-14] MEDS: Polyethylene Glycol 3350 17 GM PACKET PO (17:20)
[2024-05-14] MEDS: Normal Saline Flush 10 ML SYR IVP ×2 (17:20→20:18)
--- NOTE | 2024-05-14 19:13 | W.PC.ACHO ---
Registration Status: Primary Language: Preferred Language: ED Information & Data Chief Complaint SOB 05/14/24 10:44 Triage Note SOB started last night, 05/14/24 09:56 first chemo and immunotherapy tx on Friday. low grade non clinical fever at home takes tylenol for cancer pain last tylenol taken at 0730 Medical / Surgical History (Last Reviewed 05/14/24 @ 10:43 by Kurt Martino MD) Hypothyroid Urinary urgency Xerodermia Raynauds disease Pneumonia Oropharyngeal dysphagia Malignant tumor of tonsil Drug-induced nausea and vomiting Depression Dehydration Choking due to phlegm in larynx Asthma Aspiration pneumonia (Last Updated 01/19/24 @ 11:04 by Jose Roberto Cox MD) Hx of tonsillectomy History of laryngoscopy Most Recent Vital Signs Temperature 37 C 05/14/24 18:37 Temperature Source Temporal Artery Scan 05/14/24 18:37 Pulse 99 H 05/14/24 18:37 Pulse Rhythm Regular 05/14/24 15:17 Pulse 84 05/14/24 14:10 Respiratory Rate 18 05/14/24 18:37 Respiratory Effort Short of Breath, Accessory Muscle Use 05/14/24 15:17 Respiratory Depth Shallow 05/14/24 15:17 Respiratory Pattern Normal 05/14/24 15:17 Blood Pressure 106/69 05/14/24 18:37 Blood Pressure Mean 89 05/14/24 12:00 Blood Pressure Position Sitting 05/14/24 11:26 Pulse Oximetry 96 05/14/24 18:37 Oxygen Delivery Method Room Air 05/14/24 18:37 Oxygen Flow Rate 0 05/14/24 18:37 Pain Level 3 05/14/24 18:37 Comment Patient states increased pain with deep breathing, otherwise the tylenol decreased their earlier reported level of pain 05/14/24 18:37 Allergies No Known Allergies Allergy (Verified 05/14/24 10:03) Precautions Isolation Standard precaution 05/14/24 10:30 Active Medications Generic Name Dose Route Start Last Admin Trade Name Freq PRN Reason Stop Dose Admin Acetaminophen 650 mg 05/14/24 16:00 05/14/24 16:06 Acetaminophen 325 Mg Tab PO 05/15/24 17:00 650 mg Q6H JAVIER Administration Polyethylene Glycol 17 gm 05/14/24 16:50 05/14/24 17:20 Polyethylene Glycol 3350 17 Gm Packet PO 17 gm DAILY JAVIER Administration Sodium Chloride 0 ml 05/14/24 20:00 05/14/24 17:20 Normal Saline Flush 10 Ml Syr IVP 10 ml BID JAVIER Administration IV IV Catheter Type [Left Saline Lock Antecubital] IV Catheter Type [Right Peripheral IV Antecubital] IV Catheter Gauge [Left 18 Antecubital] IV Catheter Gauge [Right 18 Antecubital] Diet Orders Category Date Time Status DIET [Heart Healthy Eating] [DIET] Nutrition 05/14/24 Dinner Active Diagnostics 05/14/24 05/14/24 05/14/24 Range/Units 12:15 10:42 10:20 WBC 8.47 (4.4-10.8) 10^3/uL RBC 5.24 (4.36-5.78) 10^6/uL Hgb 14.6 (13.5-17.5) g/dL Hct 44.1 (40.0-50.0) % MCV 84 (80-95) fL MCH 27.9 (27.0-33.0) pg MCHC 33.1 (32.0-36.0) % RDW 12.7 (11.8-14.1) % Plt Count 318 (130-400) 10^3/uL MPV 8.7 (8.0-11.0) fL Immature Gran % 0.5 % Neutrophils % 88.6 % Lymphocytes % 5.8 % Monocytes % 1.5 % Eosinophils % 3.2 % Basophils % 0.4 % Nucleated RBC % 0.0 (0.0-0.3) % Absolute Neutrophils 7.51 H (1.2-6.7) 10^3/uL Absolute Lymphocytes 0.49 L (1.2-3.4) 10^3/uL Absolute Monocytes 0.13 (0.1-0.8) 10^3/uL Absolute Eosinophils 0.27 (0.0-0.7) 10^3/uL Absolute Basophils 0.03 (0.0-0.2) 10^3/uL PT 10.8 (9.1-11.1) sec INR 1.1 (0.9-1.1) VBG pH 7.45 H (7.31-7.41) VBG pCO2 31 L (41-51) mmHg VBG pO2 51 mmHg VBG HCO3 22 L (23-28) mmol/L VBG Total CO2 19 L (24-29) mmol/L VBG O2 Saturation 90 % VBG Base Excess -3 L (-2-3) mmol/L VBG Lactate 0.6 (0.6-1.4) mmol/L Sodium 136 (136-145) mmol/L Potassium 3.8 (3.5-5.1) mmol/L Chloride 100 (98-107) mmol/L Carbon Dioxide 30.0 (21.0-32.0) mmol/L Anion Gap 6.0 (3-11) mmol/L BUN 24 H (7-18) mg/dL Creatinine 1.2 (0.70-1.30) mg/dL Est GFR (CKD-EPI 2020) 77.43 (mL/min/1.73m2) Glucose 102 (74-106) mg/dL Calcium 9.1 (8.5-10.1) mg/dL Total Bilirubin 1.16 H (0.2-1.0) mg/dL AST 62 H (15-37) U/L ALT 81 H (16-63) U/L Alkaline Phosphatase 114 (46-116) U/L Total Protein 7.7 (6.4-8.2) g/dL Albumin 2.9 L (3.4-5.0) g/dL Procalcitonin 0.16 ng/mL Urine Color Yellow (Yellow) Urine Clarity Clear (Clear) Urine pH 6.0 (5-8) Ur Specific [place] 1.015 (1.005-1.025) Urine Protein Negative (Neg-Trace) mg/dL Urine Ketones Negative (Negative) mg/dL Urine Blood Trace-lysed H (Negative) Urine Nitrite Negative (Negative) Urine Bilirubin Negative (Negative) Urine Urobilinogen 0.2 (Up to 0.2) mg/dL Ur Leukocyte Esterase Negative (Negative) Urine RBC 0-2 (0-2) HPF Urine WBC 0-2 (0-5) HPF Ur Epithelial Cells Rare (Negative) HPF Urine Crystals Negative (Negative) HPF Urine Bacteria Negative (Negative) HPF Urine Casts Negative (Negative) LPF Urine Mucus Negative (Negative) Ur Culture Indicated? No Urine Glucose Negative (Negative) mg/dL COVID-19 Source Nasopharynx SARS-CoV-2 (PCR) Negative (Negative) Influenza Type A (PCR) Negative (Negative) Influenza Type B (PCR) Negative (Negative) RSV (PCR) Negative (Negative) 05/14/24 14:51 Body Fluid Culture - Pending Pleural - Right Gram Stain - Final 05/14/24 14:51 Anaerobic Culture - Pending Pleural - Right 05/14/24 10:30 Blood Culture - Pending Blood 05/14/24 10:25 Blood Culture - Pending Blood Intake and Output - 24 Hour Total 05/14/24 09:51 thru 05/14/24 18:39 Intake Total 1480 Balance 1480 Weight 79.3 kg Intake: IV 1000 Oral 480 Other: Urine Appearance Clear Comment independent Falls Risk Assessment History of Falls No History 05/14/24 15:17 Contributing Factors No Factors 05/14/24 15:17 Ambulatory Aids Independent 05/14/24 15:17 Tubes/Lines None 05/14/24 15:17 Gait Evaluation No gait disturbance 05/14/24 15:17 Cognition No cognitive impairment 05/14/24 15:17 Fall Total Score 0 05/14/24 15:17 Level of Risk Standard/Low Risk 05/14/24 15:17 v v v v v v v v v Sending and/or Receiving Nurses: Please use comment section below to note any information pertinent to the patient hand-off not included above. Information / Comments: Report received from:Report received from Libby Castorena in the ED on 05/14/2024 at 1413 then pt went to OR and this content writer received report from Teresita at 1510.
[2024-05-15 00:49] VITALS: BP 122/70; PULSE 78; RESP 16; TEMP 36.5; O2SAT 96
[2024-05-15] MEDS: Acetaminophen 325 MG TAB 650 MG PO ×2 (04:32→08:12)
[2024-05-15 04:33] VITALS: BP 120/74; PULSE 98; RESP 16; TEMP 37.1; O2SAT 96
[2024-05-15] MEDS: Normal Saline Flush 10 ML SYR IVP ×3 (04:33→08:13)
[2024-05-15] MEDS: Levothyroxine 100 MCG TAB PO (06:30)
[2024-05-15 07:26] VITALS: BP 113/73; PULSE 81; RESP 19; TEMP 37.2; O2SAT 97
[2024-05-15] MEDS: Venlafaxine 75 MG CAPCR PO (08:12)
[2024-05-15] MEDS: Polyethylene Glycol 3350 17 GM PACKET PO (08:13)
[2024-05-15] MEDS: Folic Acid 1 MG TAB PO (08:13)
[2024-05-15] MEDS: Rosuvastatin 20 MG TAB PO (08:13)
--- NOTE | 2024-05-15 09:44 | IN_ITS ---
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 He had a thorocentesis yesterday, and although states that this hurts he overall feels better. PMHX: PFSH All Active Problems (Updated 05/14/24 @ 13:51 by Kurt Martino MD) Respiratory failure (Acute) Lung cancer (Chronic) Pleural effusion on right (Acute) Xerostomia (Acute) Tongue ulcer (Acute) Medical History Hypothyroid Urinary urgency Xerodermia Raynauds disease Pneumonia Oropharyngeal dysphagia Malignant tumor of tonsil Drug-induced nausea and vomiting Depression Dehydration Choking due to phlegm in larynx Asthma Aspiration pneumonia Surgical History (Updated 01/19/24 @ 11:04 by Jose Roberto Cox MD) Hx of tonsillectomy Left, 2020History of laryngoscopy Social History/Home Situation: At baseline patient is active he recently started chemo and immunotherapy every 3 weeks with his first on 05/10/2024. 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 Prior to CA he was extremely athletic and active particularly with gravel riding. Current Functional Limitations: Limited by diagnosis with cardiovascular activity no need for any assistive device Equipment Owned/DME: None Subjective: Patient states that he has tightness of the right chest wall where he had the thoracocentesis Objective: General Observation: Patient does not appear in any acute distress has good muscle development sitting up. Mental Status: A&O x 4 Pain: Patient has some pain in the right chest wall more tightness discomfort with the thirst Mikey this is Vital Signs: Monitored by nursing staff ROM: Right Upper Extremity: WNL full Left Upper Extremity: WNL full l Right Lower Extremity: WNL full Left Lower Extremity: WNL full Strength: Right Upper Extremity: WNL 5/5 Left Upper Extremity: WNL 5/5 Right Lower Extremity: WNL 5/5 Left Lower Extremity: WNL 5/5 Sensation: Normal sensation to light touch Bed Mobility/Transfers: Independent with all transfers and bed mobility Gait: Normal gait no deficiencies no loss of balance. Balance: Static Sitting: Normal Dynamic Sitting: Normal Static Standing: Normal Dynamic Standing: Normal Special Tests: Mobility Limitations Standardized Measure [facility] AM-PAC 6 clicks Basic Mobility Inpatient Short Form: Raw Score: 24 standardized Score: 6.94 CMS Score: 0% Informed Consent/Education: Patient instructed in purpose of PT consult and plan of care. Assessment: Patient is a 43year old male referred to physical therapy services with the diagnosis of acute respiratory failure. Patient presents with clinical signs and symptoms consistent with lung CA s/p thoracocentesis and now has no deficiencies with regard to strength range of motion or balance. He has normal gait and ability to return to home. As demonstrated by the following impairment level findings: none. Impairments are contributing to the following functional limitations: AMPAC score. Patient is assessed as a Low 54431 complexity based on the following: History: As above Examination: As outlined Presentation: Stable Decision Making: Low Discussed with Zen while he is in the hospital that he should maintain his strength as best as possible he can perform sit to stands, single-leg calf raises, stretching of chest wall, scapular retraction, partial squats, partial lunges. Patient is doing well post thorococentesis and is at baseline and there is no need for any physical therapy services while in the hospital. He is safe to return home once medically stable. Plan of Care/Treatment Plan: DC skilled physical therapy, no need for skilled services at this time no need for services at home. DISCHARGE RECOMMENDATIONS: [] [X] Home with no services [] TREATMENT CODE/TIME:42110 9:45-9:55 10 min
--- NOTE | 2024-05-15 11:05 | DSE_ITS ---
Date of service: 05/15/24 Time of Service: 11:06 DS: Diagnosis Discharge Diagnosis (1) Respiratory failure: Status: Acute (2) Pleural effusion on right: Status: Acute (3) Lung cancer: Status: Chronic Discharge Plan Disposition Patient Disposition: Home Condition: Stable Discharge Details Reason For Visit: SOB Admit Date/Time: 05/14/24 13:26 Admit Provider: Jacob Taveras Attending Provider: Kurt Martino Primary Care Provider: Jose Angel Hopkins [facility] Course Hospital Course: This is a 43-year-old male patient diagnosed with adenocarcinoma of the right lung in March 2024 followed outpatient by oncology presented to the emergency department with shortness of breath. Found to have a large pleural effusion. Surgery was consulted and completed a thoracentesis draining approximately 2650 mL of pleural fluid. X-ray postprocedure still did demonstrate additional pleural effusion but respiratory status markedly improved and oxygenating well on room air. Plan is to discharge to home with close outpatient follow-up. He does have an appointment on Friday with his oncologist. Should he continue to have symptomatic pleural effusion discussion was for Pleurx catheter. He will discuss this with his outpatient oncology team. He is eating and drinking remains hemodynamically stable oxygenating well on room air and is safe for discharge to home. Discharge discussed with Dr. Taveras Home Meds and New Rx's Prescriptions: Continued albuterol sulfate 90 mcg/actuation HFA aerosol inhaler 2 puff inhalation Q6H PRN amlodipine 5 mg tablet 5 mg PO DAILY cyclobenzaprine 10 mg tablet 10 mg PO HS PRN levothyroxine 50 mcg capsule 100 mcg PO DAILY folic acid 1 mg tablet 1 mg PO DAILY Patient Comments: TAKE ONE TABLET BY MOUTH EVERY DAY prednisone 10 mg tablet 10 mg PO DIRECTED PRN Patient Comments: START BY TAKING 6 TABLETS BY MOUTH FOR 2 DAYS, THEN DECREASE TO 5 TABLETS FOR 2 DAYS, THEN TO 4 TABLETS FOR 2 DAYS, THEN TO 3 TABLETS FOR 2 rosuvastatin 20 mg tablet 20 mg PO DAILY Patient Comments: TAKE ONE TABLET BY MOUTH EVERY DAY prochlorperazine maleate 10 mg tablet 10 mg PO Q6H PRN Patient Comments: TAKE ONE TABLET BY MOUTH EVERY 6 HOURS NEEDED venlafaxine 75 mg capsule,extended release 24hr 75 mg PO DAILY Patient Comments: TAKE ONE CAPSULE BY MOUTH EVERY DAY Discharge Instructions Instructions: Pleural effusion Additional Instructions: resume usual medications keep scheduled outpatient appointments Stand Alone Forms: Nursing Discharge Form Referrals: Jose Angel Hopkins [Primary Care Provider] - (Please call your PCP office on Friday to make a follow up appointment for within 1 to 2 weeks.) Activity:: Activity as Tolerated Equipment/Supplies:: No Equipment Needed Diet:: As Tolerated Discharge Orders Discharge Orders: Discharge Order (Routine); Ordered 05/15/24 Ordered By: Baylee Azul Discharge Data Discharge Date/Time-TO BE ENTERED AT DEPARTURE: 05/15/24 11:35 DS: Summary Time Spent with Patient providing and/or coordinating discharge services: Greater than 30 minutes Status at Discharge Functional status at discharge: independent ambulation Overall status at discharge: patient is progressing back to baseline Mental Status: mental status grossly normal Speech and Movement: speech and movement normal Mood: congruent mood Affect: normal affect Quality:SDOH Health Related Social Needs: Health related social needs problems with daily activi ties (Z73.9) Exam Narrative Exam Narrative: Thin male of stated age in no acute distress head is atraumatic eyes nonicteric noninjected skin is pink warm dry well-perfused. Neurologic he is awake alert oriented no focal deficits psychiatric appropriate mood and affect cardiovascular regular rate and rhythm respirations even and unlabored breath sounds are diminished throughout no wheezing or coarse breath sounds abdomen is flat nontender moves all extremities no peripheral edema skin with no rashes or lesions Psych Mental Status: mental status grossly normal Speech and Movement: speech and movement normal Mood: congruent mood Affect: normal affect DS: Data Vitals/I&O Vitals and I&O: Vital Signs Temperature 37.2 C 05/15/24 07:26 Temperature Source Temporal Artery Scan 05/15/24 07:26 Pulse 81 05/15/24 07:26 Pulse Rhythm Regular 05/14/24 15:17 Pulse 84 05/14/24 14:10 Respiratory Rate 19 05/15/24 07:26 Respiratory Effort Short of Breath, Accessory Muscle Use 05/14/24 15:17 Respiratory Depth Shallow 05/14/24 15:17 Respiratory Pattern Normal 05/14/24 15:17 Blood Pressure 113/73 05/15/24 07:26 Blood Pressure Mean 89 05/14/24 12:00 Blood Pressure Position Sitting 05/14/24 11:26 Pulse Oximetry 97 05/15/24 07:26 Oxygen Delivery Method Room Air 05/15/24 07:26 Oxygen Flow Rate 0 05/15/24 07:26 Pain Level 3 05/15/24 04:33 Comment Patient states increased pain with deep breathing, otherwise the tylenol decreased their earlier reported level of pain 05/14/24 18:37 Intake & Output 05/14/24 05/14/24 05/15/24 11:59 23:59 11:59 Intake Total 1490 / 1490 460 / 460 Balance 1490 / 1490 460 / 460 Weight 83.8 kg 79.3 kg Intake: IV 1010 / 1010 20 / 20 Oral 480 / 480 440 / 440 Other: Urine Appearance Clear Comment independent Pt voided unmeasured, unvisualized amount into toilet independently. Data Completed and Pending Labs on day of discharge: Labs from last 24 hours 05/14/24 05/14/24 12:15 10:20 Sodium 136 Potassium 3.8 Chloride 100 Carbon Dioxide 30.0 Anion Gap 6.0 BUN 24 H Creatinine 1.2 Est GFR (CKD-EPI 2020) 77.43 Glucose 102 Calcium 9.1 Total Bilirubin 1.16 H AST 62 H ALT 81 H Alkaline Phosphatase 114 Total Protein 7.7 Albumin 2.9 L Procalcitonin 0.16 Urine Color Yellow Urine Clarity Clear Urine pH 6.0 Ur Specific [place] 1.015 Urine Protein Negative Urine Ketones Negative Urine Blood Trace-lysed H Urine Nitrite Negative Urine Bilirubin Negative Urine Urobilinogen 0.2 Ur Leukocyte Esterase Negative Urine RBC 0-2 Urine WBC 0-2 Ur Epithelial Cells Rare Urine Crystals Negative Urine Bacteria Negative Urine Casts Negative Urine Mucus Negative Ur Culture Indicated? No Urine Glucose Negative COVID-19 Source Nasopharynx SARS-CoV-2 (PCR) Negative Influenza Type A (PCR) Negative Influenza Type B (PCR) Negative RSV (PCR) Negative 05/14/24 14:51 Pleural - Right Anaerobic Culture - Pending 05/14/24 10:30 Blood Blood Culture - Pending 05/14/24 10:25 Blood Blood Culture - Pending Preliminary micro results at discharge 05/14/24 14:51 Body Fluid Culture - Preliminary Pleural - Right 05/14/24 14:51 Anaerobic Culture - Pending Pleural - Right 05/14/24 10:30 Blood Culture - Pending Blood 05/14/24 10:25 Blood Culture - Pending Blood PFSH All Active Problems (Updated 05/14/24 @ 13:51 by Kurt Martino MD) Respiratory failure (Acute) Lung cancer (Chronic) Pleural effusion on right (Acute) Xerostomia (Acute) Tongue ulcer (Acute) Medical History Hypothyroid Urinary urgency Xerodermia Raynauds disease Pneumonia Oropharyngeal dysphagia Malignant tumor of tonsil Drug-induced nausea and vomiting Depression Dehydration Choking due to phlegm in larynx Asthma Aspiration pneumonia Surgical History (Updated 01/19/24 @ 11:04 by Jose Roberto Cox MD) Hx of tonsillectomy 2019 History of laryngoscopy Social History (Updated 12/25/23 @ 15:13 by Maria Alejandra Vidal) Smoking/Tobacco Use Status: Never Smoking risk assessment performed?: Yes Alcohol Intake: former Drug use: Never Household members: spouse and family Housing: house Do you feel safe at home: Yes Do you feel safe in your relationship?: Yes Time Spent with Patient Time Spent with Patient: 45-69 minutes Time was spent: preparing to see the patient(eg.review tests), obtaining and/or reviewing separately otained hiistory, ordering medications,tests, procedures, referring, communicating with other health team primary care physician, indepentently interpreting results and counseling the patient
--- NOTE | 2024-05-15 11:45 | CMDISCH_ITS ---
Date of service: 05/15/24 Time of Service: 11:46 LACE Index Scoring Tool Questions: Length of Stay (in days): 1 Was the patient admitted via the E.D.?: Yes Comorbidities: Any Tumor E.D. 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 Receiving chemo. Discharge Plan: Zen is s/p a thoracentesis for 2650ml, and is feeling quite improved. Zen is discharged today with no new services. He has an appointment with his oncologist on Wednesday 05/17 and will be having a port placed on 05/19. Zen will continue per his prescribed plan of care and transport home with his . Patient/Family Education Needs: Review of discharge instructions, activity, limitations and discuss ask me 3. SDOH Health Related Social Needs: Health related social needs problems with daily activi ties (Z73.9)
== END 2024-05-15 11:35 | disposition home or self-care (01) | DRG 180 ==
LOC: ER 15:22 → SUR 15:22 → MS 05-15 11:06
PROVIDERS: Surgery; Admitting Provider Family Medicine; Emergency Provider Emergency Medicine Emergency Medical Services; PCP Family Medicine; Visit Provider Family Medicine
PROC: 0W993ZZ Drainage of Right Pleural Cavity, Percutaneous Approach (ICD-10-PCS; CPT 32554; principal; 2024-05-14 14:45)
DX: C34.91 Malignant neoplasm of unspecified part of right bronchus or lung (principal); J96.01 Acute respiratory failure with hypoxia; J91.0 Malignant pleural effusion; C79.31 Secondary malignant neoplasm of brain; C79.51 Secondary malignant neoplasm of bone; E03.9 Hypothyroidism, unspecified; I73.00 Raynaud's syndrome without gangrene; J45.909 Unspecified asthma, uncomplicated; F32.A Depression, unspecified; Z85.89 Personal history of malignant neoplasm of other organs and systems; Z79.899 Other long term (current) drug therapy
CPT/HCPCS: 32554; 00123; 76604; 80053; 82805; 84145; 87040; 87637; 93005; 93308; 96360; 97161; 99285; 71045; 71046; 81003; 81015; 83605; 85025; 85610; 87070; 87075; 87205; 93010; 99223; 99239

== ENCOUNTER 2024-05-17 03:22 | Outpatient (CLI) | payer BC, SELFPAY ==
[2024-05-17 13:24] LABS: Abs Immature Grans 0.02 10^3/uL (0.0-0.06); HCT 40.2 % (40.0-50.0); HGB 13.5 g/dL (13.5-17.5); MCHC 33.6 % (32.0-36.0); MCV 83 fL (80-95); MPV 8.3 fL (8.0-11.0); Platelet Count 241 10^3/uL (130-400); RBC 4.82 10^6/uL (4.36-5.78); RDW 12.1 % (11.8-14.1); WBC 5.06 10^3/uL (4.4-10.8)
[2024-05-17 13:46] LABS: ALT 103 U/L (16-63); AST 65 U/L (15-37); Albumin 2.6 g/dL (3.4-5.0); Alkaline Phosphatase 143 U/L (46-116); Anion Gap 4.6 mmol/L (3-11); BUN 17 mg/dL (7-18); CO2 31.4 mmol/L (21.0-32.0); CREATININE 1.2 mg/dL (0.70-1.30); Calcium 9.3 mg/dL (8.5-10.1); Chloride 98 mmol/L (98-107); Estimated GFR 77.43 (mL/min/1.73m2); FREE T4 1.03 ng/dL (0.76-1.46); Glucose 118 mg/dL (74-106); Potassium 4.2 mmol/L (3.5-5.1); Sodium 134 mmol/L (136-145); Total Protein 7.8 g/dL (6.4-8.2)
[2024-05-17 13:56] LABS: Absolute Lymphocyte Count 0.76 10^3/uL (1.2-3.4); Atypical Lymphocytes % 2 %; Diff Comment Manual Differential; RBC Morphology Normal
== END 2024-05-17 03:23 | disposition home or self-care (01) ==
LOC: LBO 03:23
PROVIDERS: PCP Family Medicine; Visit Provider Internal Medicine Hematology
DX: C34.91 Malignant neoplasm of unspecified part of right bronchus or lung (principal); Z79.899 Other long term (current) drug therapy
CPT/HCPCS: 36415; 80053; 84439; 84443; 85025

== ENCOUNTER 2024-05-24 02:52 | Outpatient (CLI) | payer BC, SELFPAY ==
[2024-05-24 09:10] LABS: Abs Immature Grans 0.01 10^3/uL (0.0-0.06); Absolute Basophil Count 0.02 10^3/uL (0.0-0.2); Absolute Eosinophil Count 0.17 10^3/uL (0.0-0.7); Absolute Lymphocyte Count 0.88 10^3/uL (1.2-3.4); Absolute Monocyte Count 0.41 10^3/uL (0.1-0.8); Absolute Neutrophil Count 1.91 10^3/uL (1.2-6.7); Basophils % 0.6 %; HCT 38.3 % (40.0-50.0); HGB 12.7 g/dL (13.5-17.5); Immature Grans % 0.3 %; Lymphocytes % 25.9 %; MCHC 33.2 % (32.0-36.0); MCV 85 fL (80-95); MPV 7.9 fL (8.0-11.0); Monocytes % 12.1 %; Neutrophils % 56.1 %; Platelet Count 322 10^3/uL (130-400); RBC 4.53 10^6/uL (4.36-5.78); RDW 12.7 % (11.8-14.1); RDW-SD 38.4 fL
[2024-05-24 09:35] LABS: ALT 109 U/L (16-63); AST 67 U/L (15-37); Albumin 2.6 g/dL (3.4-5.0); Alkaline Phosphatase 145 U/L (46-116); Anion Gap 5.5 mmol/L (3-11); BUN 11 mg/dL (7-18); CO2 32.5 mmol/L (21.0-32.0); CREATININE 1.3 mg/dL (0.70-1.30); Calcium 9.5 mg/dL (8.5-10.1); Chloride 102 mmol/L (98-107); Estimated GFR 70.34 (mL/min/1.73m2); Glucose 92 mg/dL (74-106); Potassium 4.2 mmol/L (3.5-5.1); Sodium 140 mmol/L (136-145); TSH 7.51 uIU/mL (0.36-3.74)
== END 2024-05-24 02:53 | disposition home or self-care (01) ==
LOC: LBO 02:52
PROVIDERS: PCP Family Medicine; Visit Provider Internal Medicine Hematology
DX: C34.91 Malignant neoplasm of unspecified part of right bronchus or lung (principal); Z79.899 Other long term (current) drug therapy
CPT/HCPCS: 36415; 80053; 84439; 84443; 85025

== ENCOUNTER 2024-05-31 01:16 | Outpatient (CLI) | payer BC, SELFPAY ==
--- OUTSIDE RECORDS SUMMARY | 2024-05-31 01:18 | XMS_ITS | Continuity of Care Document ---
Author Organization [facility] Address [address] [place] [address] Care Team Providers Care Feed Project Engineer Name Role Phone Jose Angel Hopkins Primary Care Physician Encounter [id number] Date(s): 09/02/22 - 09/02/22 [facility] [address] [place] [address] Discharge Disposition: Home or Self Care Attending Physician: Gume Christy MD Admitting Physician: Gume Christy MD Referring Physician: Gume Christy MD Allergies, Adverse Reactions, Alerts No Known Medication Allergies Assessment and Plan Future Appointments Immunizations Given and Recorded Vaccine Date Status Refusal Reason SARS-CoV-2 (COVID-19) mRNA-1273 vaccine 08/03/20 R ecorded SARS-CoV-2 (COVID-19) mRNA-1273 vaccine 07/07/20 R ecorded influenza virus vaccine, live 01/21/20 Recorded tetanus/diphth/pertuss (Tdap) adult/adol 10/02/16 Recorded Medications !-Augmentin 875 mg-125 mg oral tablet 1 tab, Oral, every 12 hr, # 14 tab, 0 Refill(s), Pharmacy: [id number] Start Date: 07/02/22 Stop Date: 07/09/22 Status: Ordered Albuterol (Eqv-ProAir HFA) 90 mcg/inh inhalation aerosol 2 puffs, Inhale, every 4 hr, PRN as needed for wheezing, As needed, # 18 g, 6 Refill(s), Pharmacy: [id number] Start Date: 06/27/22 Status: Ordered amLODIPine 5 mg oral tablet 5 mg = 1 tab, Oral, Daily, # 90 tab, 3 Refill(s), Pharmacy: [id number] Start Date: 06/27/22 Status: Ordered levothyroxine 50 mcg (0.05 mg) oral tablet TAKE ONE TABLET BY MOUTH EVERY DAY Start Date: 07/02/22 Status: Ordered Problem List Condition Confirmation Course Effective Dates Status Health St atus Informant Asthma Confirmed Active 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 Pneumonia Confirmed Active Raynaud's disease Confirmed Active Xerodermia Confirmed Active Procedures Procedure Date Related Diagnosis Body Site Status Direct laryngoscopy with mert gical procedure 1 01/04/20 Completed 1Biopsy: Vin Results Laboratory List Name Date Thyroid Stimulating Hormone 09/02/22 Most recent to oldest [Reference Range]: 1 TSH [0.358-3.740 mcIntlUnit/mL] 12.356 m cIntlUnit/mL *HI* (09/02/22 5:01 PM) Social History Social History Type Response Tobacco Never tobacco user T obacco Use:. Sex Male Patient Care team information Care Team Personnel Name: Gume Christy MD Position: No Access Member Role: Informed Provider Address: Address: [facility] [address] [place] [id number] Name: Jose Angel Hopkins MD Position: Physician Member Role: Primary Care Physician Address: Address: [address] [address]- [place] Care Team Related Persons Name: DORI LEI
--- OUTSIDE RECORDS SUMMARY | 2024-05-31 01:18 | XMS_ITS | Continuity of Care Document ---
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 Allergies, Adverse Reactions, Alerts No Known Medication Allergies Assessment and Plan Future Appointments Future Scheduled Tests Laboratory* Lipid Panel 01/01/24 Immunizations Given and Recorded Vaccine Date Status Refusal Reason SARS-CoV-2 (COVID-19) mRNA-1273(6y+ biva 1 04/02/21 Recorded SARS-CoV-2 (COVID-19) mRNA-1273 vaccine 08/03/20 R ecorded SARS-CoV-2 (COVID-19) mRNA-1273 vaccine 07/07/20 R ecorded influenza virus vaccine, live 01/21/20 Recorded tetanus/diphth/pertuss (Tdap) adult/adol 10/02/16 Recorded 1Result Comment: [facility] Medications Albuterol (Eqv-ProAir HFA) 90 mcg/inh inhalation aerosol 2 puffs, Inhale, every 4 hr, PRN as needed for wheezing, As needed, # 18 g, 4 Refill(s), Pharmacy: [facility], 172, cm, 06/20/24 11:06:00 EDT, Height, 76.16, kg, 12/08/23 11:08:00 EDT, Weight Dosing Start Date: 02/12/24 Status: Ordered amLODIPine 5 mg oral tablet 5 mg = 1 tab, Oral, Daily, # 90 tab, 3 Refill(s), Pharmacy: [facility] Start Date: 06/27/22 Status: Ordered cyclobenzaprine 10 mg oral tablet See Instructions, PRN as needed for muscle spasm, one po qhs prn spasm, # 20 tab, 1 Refill(s), Pharmacy: [facility], 173.5, cm, 10/14/22 9:22:00 EDT, Height Start Date: 08/20/23 Status: Ordered doxycycline hyclate 100 mg oral capsule 100 mg = 1 cap, Oral, BID, # 14 cap, 0 Refill(s), Pharmacy: [facility], 172, cm, 10/15/2410:06:00 EDT, Height, 73.94, kg, 03/16/24 14:29:00 EST, Weight Dosing Start Date: 03/23/24 Stop Date: 03/30/24 Status: Ordered levothyroxine 88 mcg (0.088 mg) oral tablet See Instructions, TAKE ONE TABLET BY MOUTH EVERY DAY BEFORE BREAKFAST, # 90 tab, 2 Refill(s), Pharmacy: [facility], 172, cm, 10/16/23 11:06:00 EDT, Height, 76.16, kg, 12/08/23 11:08:00 EDT,Weight Dosing Start Date: 02/04/24 Status: Ordered rosuvastatin 20 mg oral capsule 20 mg = 1 cap, Oral, Daily, # 90 cap, 3 Refill(s), Pharmacy: [facility], 172, cm, 10/16/23 11:06:00 EDT, Height, 74.65, kg, 10/16/23 11:12:00 EDT, Weight Dosing Start Date: 11/11/23 Status: Ordered Symbicort 80 mcg-4.5 mcg/inh inhalation aerosol 2 puffs, Inhale, BID, # 6.9 g, 0 Refill(s), Pharmacy: [facility], 172, cm, 10/16/23 11:06:00 EDT, Height, 73.94, kg, 03/16/24 14:29:00 EST, Weight Dosing Start Date: 03/16/24 Status: Ordered venlafaxine 75 mg oral capsule, extended release 1 cap, Oral, Daily, # 90 cap, 4 Refill(s), Pharmacy: [facility], 172, cm, 10/16/23 11:06:00 EDT, Height, 74.65, kg, 10/16/23 11:12:00 EDT, Weight Dosing Start Date: 10/16/23 Status: Ordered Problem List Condition Confirmation Course Effective Dates Status H ealth Status Informant Aspiration pneumonia Confirmed 03/29/20 Active Asthma Confirmed Active Choking due to phlegm in larynx Confirmed 04/19/20 Active Dehydration Confirmed 04/03/20 Active Depression Confirmed Active Drug-induced nausea and vomiting Confirmed 04/24/20 Active Hypothyroid Confirmed Active Urine frequency Confirmed Active 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 Oropharyngeal dysphagia Confirmed 03/28/20 Active Pneumonia Confirmed Active Raynaud's disease Confirmed Active Xerodermia Confirmed Active Procedures Procedure Date Related Diagnosis Body Site Status Direct laryngoscopy with mert gical procedure 1 01/04/20 Completed 1Biopsy: Vin Social History Social History Type Response Tobacco Never tobacco user T obacco Use:. Sex Male Sex Representation Male (finding) Patient Care team information Care Team Personnel Name: Gume Christy MD Position: No Access Member Role: Informed Provider Address: [facility] [address] [place] [address] Name: Jose Angel Hopkins MD Position: Physician Member Role: Primary Care Physician Address: [address] Care Team Related Persons Name: DORI LEI Insurance Providers Guarantor name: TINY LEI Health Plan Information #: 1 [address]ayer: [facility] Member Number: [id number] Policy Number: NA Health Plan Information #: 2 Payer: [employer] Member Number: [id number] Policy Number: NA
--- OUTSIDE RECORDS SUMMARY | 2024-05-31 01:18 | XMS_ITS | Continuity of Care Document ---
Author Organization [facility] Address [address] [place] [address] Care Team Providers Care Veterinary Technology Instructor Name Role Phone Jose Angel Hopkins Primary Care Physician Encounter [facility] Date(s): 05/16/24 - 05/16/24 [facility] [address] [place] [address] Encounter Diagnosis Fever(Discharge Diagnosis) - 05/16/24 Patient on antineoplastic chemotherapy regimen(Discharge Diagnosis) - 05/16/24 Right lower lobe pneumonia(Discharge Diagnosis) - 05/16/24 Discharge Disposition: Home or Self Care Attending Physician: Elke Pinedo MD Admitting Physician: Elke Pinedo MD Referring Physician: Elke Pinedo MD Encounter Type: Emergency Allergies, Adverse Reactions, Alerts No Known Medication Allergies Assessment and Plan Future Appointments Diagnostic Tests Pending * Blood Culture 05/16/24 * Blood Culture 05/16/24 Future Scheduled Tests Laboratory* Lipid Panel 01/01/24 Immunizations Given and Recorded Vaccine Date Status Refusal Reason SARS-CoV-2 (COVID-19) mRNA-1273(6y+ biva 1 04/02/21 Recorded SARS-CoV-2 (COVID-19) mRNA-1273 vaccine 08/03/20 R ecorded SARS-CoV-2 (COVID-19) mRNA-1273 vaccine 07/07/20 R ecorded influenza virus vaccine, live 01/21/20 Recorded tetanus/diphth/pertuss (Tdap) adult/adol 10/02/16 Recorded 1Result Comment: [facility] Medications Albuterol (Eqv-ProAir HFA) 90 mcg/inh inhalation aerosol 2 inh, Inhale, every 4 hr, PRN wheezing, # 8.5 g, 4 Refill(s) Start Date: 05/11/24 Status: Ordered Quantity: 8.5 Unit: g Repeat number: 1 amLODIPine 5 mg oral tablet 5 mg = 1 tab, Oral, Daily, # 30 tab, 0 Refill(s) Start Date: 05/11/24 Status: Ordered Quantity: 30.0 Unit: tab Repeat number: 1 amoxicillin-clavulanate 875 mg-125 mg oral tablet amoxicillin 1 tab, Oral, every 12 hr, X 7 days, # 14 tab, 0 Refill(s), 05/23/24 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, Pharmacy: [facility], 172, cm, 10/16/23 11:06:00 EDT, Height, 82.55, kg, 05/10/24 16:48:00 EST, Weight Dosing Start Date: 05/16/24 Stop Date: 05/23/24 Status: Ordered Quantity: 14.0 Unit: tab Repeat number: 1 budesonide-formoterol 80 mcg-4.5 mcg/inh inhalation aerosol 2 inh, Inhale, BID, # 10.2 g, 0 Refill(s) Start Date: 05/11/24 Status: Ordered Quantity: 10.2 Unit: g Repeat number: 1 cyclobenzaprine 10 mg oral tablet See Instructions, 1 tab Oral po qhs prn spasm, PRN, as needed for muscle spasm, 0 Refill(s) Start Date: 05/11/24 Status: Ordered Repeat number: 1 doxycycline hyclate 100 mg oral capsule 100 mg = 1 cap, Oral, BID, X 7 days, # 14 cap, 0 Refill(s), 05/23/24 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, Pharmacy: [facility], 172, cm, 10/16/23 11:06:00 EDT, Height, 82.55, kg, 05/10/24 16:48:00 EST, Weight Dosing Start Date: 05/16/24 Stop Date: 05/23/24 Status: Ordered Quantity: 14.0 Unit: cap Repeat number: 1 levothyroxine 88 mcg (0.088 mg) oral tablet 88 mcg = 1 tab, Oral, as a single daily dose before breakfast, 0 Refill(s) Start Date: 05/11/24 Status: Ordered Repeat number: 1 rosuvastatin 20 mg oral capsule 20 mg = 1 cap, Oral, Daily, # 30 cap, 0 Refill(s) Start Date: 05/11/24 Status: Ordered Quantity: 30.0 Unit: cap Repeat number: 1 venlafaxine 75 mg oral capsule, extended release 75 mg = 1 cap, Oral, Daily, # 30 cap, 0 Refill(s) Start Date: 05/11/24 Status: Ordered Quantity: 30.0 Unit: cap Repeat number: 1 Problem List Condition Confirmation Course Effective Dates Status H ealth Status Informant Aspiration pneumonia Confirmed 03/29/20 Active Asthma Confirmed Active Choking due to phlegm in larynx Confirmed 04/19/20 Active Dehydration Confirmed 04/03/20 Active Depression Confirmed Active Drug-induced nausea and vomiting Confirmed 04/24/20 Active Hypothyroid Confirmed Active Urine frequency Confirmed Active Mass of right lung Confirmed Active 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 Oropharyngeal dysphagia Confirmed 03/28/20 Active Pneumonia Confirmed Active Raynaud's disease Confirmed Active Xerodermia Confirmed Active Procedures Procedure Date Related Diagnosis Body Site Status Direct laryngoscopy with mert gical procedure 1 01/04/20 Completed 1Biopsy: Vin Results Laboratory List Name Date Respiratory Panel 2.1 ([facility]) 05/16/24 CBC w/ Diff 05/16/24 Comprehensive Metabolic Panel (CMP) 05/16 Lactic Acid 05/16/24 .Manual Differential (NCTY) 05/16/24 Procalcitonin 05/16/24 Most recent to oldest [Reference Range]: 1 WBC [5.0-10.0 x10^3/mcL] 5.0 x10^3/mcL (05/16/24 7:13 PM) RBC [4.6-6.0 x10^6/mcL] 4.9 x10^6/mcL (05/16/24 7:13 PM) Segs Man [40-75 %] 70 % (05/16/24 7:13 PM) Lymph Man [20-50 %] 17 % *LOW* (05/16/24 7:13 PM) Sierra Man [2-15 %] 9 % (05/16/24 7:13 PM) Eos Man [1-6 %] 2 % (05/16/24 7:13 PM) BUN [7-18 mg/dL] 15 mg/dL (05/16/24 7:13 PM) Glucose Level [74-106 mg/dL] 101 mg/dL (05/16/24 7:13 PM) Lymph, Atyp Man 2 % *NA* (05/16/24 7:13 PM) Potassium Level [3.5-5.1 mmol/L] 3.8 mmo l/L (05/16/24 7:13 PM) MCV [80.0-96.0 fL] 81.5 fL (05/16/24 7:13 PM) RBC Morph Normal (05/16/24 7:13 PM) AST [15-37 unit/L] 51 unit/L *HI* (05/16/24 7:13 PM) ALT [16-63 unit/L] 82 unit/L *HI* (05/16/24 7:13 PM) MCHC [31.0-35.0 g/dL] 34.8 g/dL (05/16/24 7:13 PM) Sodium Level [136-145 mmol/L] 132 mmol/L *LOW* (05/16/24 7:13 PM) Hct [41.0-51.0 %] 40.2 % *LOW* (05/16/24 7:13 PM) Calcium Level [8.5-10.1 mg/dL] 8.8 mg/dL (05/16/24 7:13 PM) Albumin Level [3.4-5.0 g/dL] 2.7 g/dL *LOW* (05/16/24 7:13 PM) Protein Total [6.4-8.2 g/dL] 7.6 g/dL (05/16/24 7:13 PM) MCH [26.0-32.0 pg] 28.4 pg (05/16/24 7:13 PM) Bilirubin Total [0.2-1.0 mg/dL] 0.9 mg/d L (05/16/24 7:13 PM) Hgb [14.0-18.0 g/dL] 14.0 g/dL (05/16/24 7:13 PM) Alk Phos [46-146 unit/L] 132 unit/L (05/16/24 7:13 PM) Band Man [0-5 %] 0 % (05/16/24 7:13 PM) Platelets [130-450 x10^3/mcL] 265 x10^3/ mcL (05/16/24 7:13 PM) CO2 [21-32 mmol/L] 28 mmol/L (05/16/24 7:13 PM) Lactic Acid Lvl [0.7-2.0 mmol/L] <0.8 mm ol/L (05/16/24 7:13 PM) eGFR Non-AA [>=60] 77 (05/16/24 7:13 PM) eGFR AA [>=60] 77 (05/16/24 7:13 PM) Chloride Level [98-107 mmol/L] 95 mmol/L *LOW* (05/16/24 7:13 PM) Procalcitonin [0.00-0.50 ng/mL] 0.19 ng/ mL (05/16/24 7:13 PM) RDW-CV [11.5-14.5 %] 12.2 % (05/16/24 7:13 PM) Adenovirus RespP-BFire [Not Detected] No t Detected (05/16/24 7:43 PM) Bordetella parapertussis RespP-BFire [No t Detected] Not Detected (05/16/24 7:43 PM) Bordetella pertussis RespP-BFire [Not De tected] Not Detected (05/16/24 7:43 PM) Chlamydophila pneumoniae RespP-BFire [No t Detected] Not Detected (05/16/24 7:43 PM) Coronavirus 229E (Not COVID-19) RP-BFire [Not Detected] Not Detected (05/16/24 7:43 PM) Coronavirus HKU1 (Not COVID-19) RP-BFire [Not Detected] Not Detected (05/16/24 7:43 PM) Coronavirus NL63 (Not COVID-19) RP-BFire [Not Detected] Not Detected (05/16/24 7:43 PM) Coronavirus OC43 (Not COVID-19) RP-BFire [Not Detected] Not Detected (05/16/24 7:43 PM) Human Metapneumonovirus RespP-BFire [Not Detected] Not Detected (05/16/24 7:43 PM) Human Rhinovirus/Enterovirus RespP-BFir [Not Detected] Not Detected (05/16/24 7:43 PM) Influenza A RespP-BFire [Not Detected] N ot Detected (05/16/24 7:43 PM) Influenza B RespP-BFire [Not Detected] N ot Detected (05/16/24 7:43 PM) Mycomplasma pneumoniae RespP-BFire [Not Detected] Not Detected (05/16/24 7:43 PM) Parainfluenza Virus 1 RespP-BFire [Not D etected] Not Detected (05/16/24 7:43 PM) Parainfluenza Virus 2 RespP-BFire [Not D etected] Not Detected (05/16/24 7:43 PM) Parainfluenza Virus 3 RespP-BFire [Not D etected] Not Detected (05/16/24 7:43 PM) Parainfluenza Virus 4 RespP-BFire [Not D etected] Not Detected (05/16/24 7:43 PM) Respiratory Syncytial Virus RespP-BFire [Not Detected] Not Detected (05/16/24 7:43 PM) Slide Review Man Diff (05/16/24 7:13 PM) Abs Neut Man 3.5 x10^3/mcL *NA* (05/16/24 7:13 PM) Creatinine Level [0.70-1.30 mg/dL] 1.20 mg/dL (05/16/24 7:13 PM) SARS-CoV-2 (COVID-19) RP-BFire [Not Dete cted] Not Detected 1 (05/16/24 7:43 PM) Plt Estimation [Adequate] Adequate (05/16/24 7:13 PM) Baso Man [0-1 %] 0 % (05/16/24 7:13 PM) 1Interpretive Data: Testing is not recommended outside of the respiratory virus season (August 26 ??? Jan 25) due to low specificity. Vital Signs Most recent to oldest [Reference Range]: 1 2 3 Temperature Temporal Artery [36-38 Deg C] 36.7 Deg C (05/16/24 9:52 PM) 38.0 Deg C (05/16/24 6:46 PM) Heart Rate Monitored [60-100 bpm] 92 bpm (05/16/24 9:30 PM) 94 bpm (05/16/24 9:15 PM) 88 bpm (05/16/24 9:00 PM) Respiratory Rate [12-24 br/min] 20 br/min (05/16/24 6:46 PM) Blood Pressure [90-120/60-80 mmHg] 132/78mmHg *HI* (05/16/24 9:30 PM) 133/82mmHg *HI* (05/16/24 9:15 PM) 131/80mmHg *HI* (05/16/24 9:00 PM) Mean Arterial Pressure, Cuff [65-140 mmHg] 96 mmHg (05/16/24 9:30 PM) 99 mmHg (05/16/24 9:15 PM) 97 mmHg (05/16/24 9:00 PM) Weight Estimated 75.75 kg (05/16/24 6:46 PM) Body Mass Index Estimated 26.21 kg/m2 (05/16/24 6:46 PM) Height/Length Estimated 170 cm (05/16/24 6:46 PM) Social History Social History Type Response Tobacco Never tobacco user T obacco Use:. Sex Male Sex Representation Male (finding) Hospital Discharge Instructions Follow Up Care 05/16/2024 18:34:33 With:Oncology Address: When: Unknown Comments:Tomorrow as scheduled Emergency department Discharge instructions * Lavelle FELIX, Zan Dominguez MD: PERFORM Event Display: ED Discharge Information Authored Date: [id number] TINY LEI :1980 Age:43 years Sex:Male Visit Date:05/16/2024 Primary Care Physician: Jose Angel Hopkins MD Discharge Instructions We would like to thank you for allowing us to assist you with your healthcare needs. The following includes patient education materials and information regarding your injury/illness. Diagnosis from Today's Visit Fever Patient on antineoplastic chemotherapy regimen Right lower lobe pneumonia Discharge Vitals Temperature??(Temporal Artery) 98.1 ??F (36.7 ??C) Heart Rate??(Monitored) 92 Respiratory Rate?? 20 Blood Pressure?? 132/78?? SpO2?? 95% Height?? 66.93 in (170 cm) Weight??(Estimated) 167.03 lb (75.75 kg) BMI?? 26.21 Allergies No Known Medication Allergies What to Do Next Instructions from Your Care Team Thank you for coming to the emergency department today,??we appreciate your patience and it has been our pleasure to take care of you. ?Your labs today were overall reassuring in terms of your cell counts, kidney function, electrolytes.?? The nasal swab was negative including for COVID and flu.?? The CT scan showed some consolidation in the right lower lobe that actually appears similar but slightly worse compared to the CT scan you had in March.?? Since you are having fever, we will cover you for pneumonia with Augmentin and doxycycline (antibiotic). ?? Please follow up with your regular doctor??tomorrow as scheduled??and return to the emergency department if you have any new or concerning symptoms such as any new chest pain or trouble breathing, persistent fever, trouble taking your antibiotics for any reason, or if you have any other concerns. ?? There are often mild laboratory abnormalities and mild radiographic findings that are not significant during this ER visit but often require further work-up as an outpatient to rule out potentially serious disease.?? Please follow-up with your primary care provider to review all of your results from this visit in more detail. You Need to Schedule the Following Appointments Follow Up with??Oncology Why: Tomorrow as scheduled Upcoming Scheduled Appointments 2024 1:00 PM EDT ?? With: Jose Angel Hopkins MD Where: [facility] [address] [address] Status: Confirmed You were treated today on an emergency basis; it may be thomas to contact your primary care provider to notify them of your visit today. You may have been referred to your regular doctor or a specialist, please follow up as instructed. If your condition worsens or you can't get in to see the doctor, contact the Emergency Department. Medications What How Much When Instructions Next Dose New amoxicillin-clavulanate (amoxicillin-clavulanate 875 mg-125 mg oral tablet) 1 tab Oral (given by mouth) Every 12 hours Duration: 7 Days Pickup at [facility] New doxycycline (doxycycline hyclate 100 mg oral capsule) 1 Capsules Oral (given by mouth) 2 times a day Duration: 7 Days Pickup at [facility] Unchanged albuterol (Albuterol (Eqv-ProAir HFA) 90 mcg/ inh inhalation aerosol) 2 Inhalation Inhale (breathe in) Every 4 hours as needed for wheezing Unchanged amLODIPine (amLODIPine 5 mg oral tablet) 1 tab Oral (given by mouth) Every day Unchanged budesonide-formoterol (budesonide-formoterol 80 mcg-4.5 mcg/ inh inhalation aerosol) 2 Inhalation Inhale (breathe in) 2 times a day Unchanged cyclobenzaprine (cyclobenzaprine 10 mg oral tablet) See instructions 1 tab Oral po qhs prn spasm, PRN, as needed for muscle spasm ?? Unchanged levothyroxine (levothyroxine 88 mcg (0.088 mg) oral tablet) 1 tab Oral (given by mouth) as a single daily dose before breakfast ?? Unchanged rosuvastatin (rosuvastatin 20 mg oral capsule) 1 Capsules Oral (given by mouth) Every day Unchanged venlafaxine (venlafaxine 75 mg oral capsule, extended release) 1 Capsules Oral (given by mouth) Every day Pharmacy Information [facility]: [address] [place], [place] [id number] [phone] Tests Performed Lab Test Name Test Result Date/Time WBC 5.0 x10^3/mcL 05/16/2024 19:13 EST RBC 4.9 x10^6/mcL 05/16/2024 19:13 EST Hgb 14.0 g/dL 05/16/2024 19:13 EST Hct 40.2 % 05/16/2024 19:13 EST MCV 81.5 fL 05/16/2024 19:13 EST MCH 28.4 pg 05/16/2024 19:13 EST MCHC 34.8 g/dL 05/16/2024 19:13 EST RDW-CV 12.2 % 05/16/2024 19:13 EST Platelets 265 x10^3/mcL 05/16/2024 19:13 EST Segs Man 70 % 05/16/2024 19:13 EST Lymph Man 17 % 05/16/2024 19:13 EST Sierra Man 9 % 05/16/2024 19:13 EST Eos Man 2 % 05/16/2024 19:13 EST Baso Man 0 % 05/16/2024 19:13 EST Band Man 0 % 05/16/2024 19:13 EST Lymph, Atyp Man 2 % 05/16/2024 19:13 EST Abs Neut Man 3.5 x10^3/mcL 05/16/2024 19:13 EST RBC Morph Normal 05/16/2024 19:13 EST Plt Estimation Adequate 05/16/2024 19:13 EST Slide Review Man Diff 05/16/2024 19:13 EST Sodium Level 132 mmol/L 05/16/2024 19:13 EST Potassium Level 3.8 mmol/L 05/16/2024 19:13 EST Chloride Level 95 mmol/L 05/16/2024 19:13 EST CO2 28 mmol/L 05/16/2024 19:13 EST Alk Phos 132 unit/L 05/16/2024 19:13 EST AST 51 unit/L 05/16/2024 19:13 EST ALT 82 unit/L 05/16/2024 19:13 EST BUN 15 mg/dL 05/16/2024 19:13 EST Glucose Level 101 mg/dL 05/16/2024 19:13 EST Creatinine Level 1.20 mg/dL 05/16/2024 19:13 EST eGFR AA 77 05/16/2024 19:13 EST eGFR Non-AA 77 05/16/2024 19:13 EST Calcium Level 8.8 mg/dL 05/16/2024 19:13 EST Protein Total 7.6 g/dL 05/16/2024 19:13 EST Albumin Level 2.7 g/dL 05/16/2024 19:13 EST Bilirubin Total 0.9 mg/dL 05/16/2024 19:13 EST Lactic Acid Lvl <0.8 mmol/L 05/16/2024 19:13 EST Procalcitonin 0.19 ng/mL 05/16/2024 19:13 EST Adenovirus RespP-BFire Not Detected BF 05/16/2024 19:43 EST Bordetella parapertussis RespP-BFire Not Detected BF 05/16/2024 19:43 EST Bordetella pertussis RespP-BFire Not Detected BF 05/16/2024 19:43 EST Chlamydophila pneumoniae RespP-BFire Not Detected BF 05/16/2024 19:43 EST Coronavirus 229E (Not COVID-19) RP-BFire Not Detected BF 05/16/2024 19:43 EST Coronavirus HKU1 (Not COVID-19) RP-BFire Not Detected BF 05/16/2024 19:43 EST Coronavirus NL63 (Not COVID-19) RP-BFire Not Detected BF 05/16/2024 19:43 EST Coronavirus OC43 (Not COVID-19) RP-BFire Not Detected BF 05/16/2024 19:43 EST SARS-CoV-2 (COVID-19) RP-BFire Not Detected BF 05/16/2024 19:43 EST Human Metapneumonovirus RespP-BFire Not Detected BF 05/16/2024 19:43 EST Human Rhinovirus/Enterovirus RespP-BFir Not Detected BF 05/16/2024 19:43 EST Influenza A RespP-BFire Not Detected BF 05/16/2024 19:43 EST Influenza B RespP-BFire Not Detected BF 05/16/2024 19:43 EST Mycomplasma pneumoniae RespP-BFire Not Detected BF 05/16/2024 19:43 EST Parainfluenza Virus 1 RespP-BFire Not Detected BF 05/16/2024 19:43 EST Parainfluenza Virus 2 RespP-BFire Not Detected BF 05/16/2024 19:43 EST Parainfluenza Virus 3 RespP-BFire Not Detected BF 05/16/2024 19:43 EST Parainfluenza Virus 4 RespP-BFire Not Detected BF 05/16/2024 19:43 EST Respiratory Syncytial Virus RespP-BFire Not Detected BF 05/16/2024 19:43 EST Patient/Repair Servicer Signature Patient Name:SANDRALARRYKRISTA TINY Aris I have received this information and my questions have been answered. Patient/Repair Servicer Name: Patient/Repair Servicer Signature: Relationship to Patient: Witness Name/Signature: Date: Electronically Signed on: 05/16/2024 22:23 ESTSigned by:CASSIE Patient Care team information Care Team Personnel Name: Jose Angel Hopkins MD Position: Physician Member Role: Informed Provider Address: [address] [address] Telecom: Care Team Related Persons Name: DORI LEI Insurance Providers Guarantor name: TINY LEI Health Plan Information #: 1 Payer: [employer] [facility] Member Number: [id number] Policy Number: NA Group Number: NA Health Plan Information #: 2 Payer: [employer] [facility] Member Number: [id number] Policy Number: NA Group Number: NA Health Plan Information #: 3 Payer: [employer] [facility] Member Number: NA Policy Number: NA Group Number: NA
--- OUTSIDE RECORDS SUMMARY | 2024-05-31 01:18 | XMS_ITS | Continuity of Care Document ---
Author Organization [facility] Address [address] [place] [address] Care Team Providers Care Learning Support Teacher Name Role Phone Jose Angel Hopkins Primary Care Physician [facility] Date[facility] 03/29/24 - 03/29/24 [facility] [address] [place] [address] Encounter Diagnosis Pneumonia(Discharge Diagnosis) - 03/29/24 Pleural effusion(Discharge Diagnosis) - 03/29/24 Discharge Disposition: Home or Self Care Attending Physician: Case Terry NP Admitting Physician: Case Terry NP Referring Physician: Case Terry PROGRAM SCHEDULE CLERK Allergies, Adverse Reactions, Alerts No Known Medication Allergies Assessment and Plan Future Appointments Future Scheduled Tests Laboratory* Lipid Panel 01/01/24 Immunizations Given and Recorded Vaccine Date Status Refusal Reason SARS-CoV-2 (COVID-19) mRNA-1273(6y+ biva 1 04/02/21 Recorded SARS-CoV-2 (COVID-19) mRNA-1273 vaccine 08/03/20 R ecorded SARS-CoV-2 (COVID-19) mRNA-1273 vaccine 07/07/20 R ecorded influenza virus vaccine, live 01/21/20 Recorded tetanus/diphth/pertuss (Tdap) adult/adol 10/02/16 Recorded 1Result Comment: [facility] Medications Albuterol (Eqv-ProAir HFA) 90 mcg/inh inhalation aerosol 2 puffs, Inhale, every 4 hr, PRN as needed for wheezing, As needed, # 18 g, 4 Refill(s), Pharmacy: [facility], 172, cm, 10/16/23 11:06:00 EDT, Height, 76.16, kg, 12/08/23 11:08:00 EDT, Weight Dosing Start Date: 02/12/24 Status: Ordered amLODIPine 5 mg oral tablet 5 mg = 1 tab, Oral, Daily, # 90 tab, 3 Refill(s), Pharmacy: [facility] Start Date: 06/27/22 Status: Ordered cyclobenzaprine 10 mg oral tablet See Instructions, PRN as needed for muscle spasm, one po qhs prn spasm, # 20 tab, 1 Refill(s), Pharmacy: [facility], 173.5, cm, 10/14/22 9:22:00 EDT, Height Start Date: 08/20/23 Status: Ordered doxycycline hyclate 100 mg oral capsule 100 mg = 1 cap, Oral, BID, # 14 cap, 0 Refill(s), Pharmacy: [facility]58, 172, cm, 10/15/2410:06:00 EDT, Height, 73.94, kg, 03/16/24 14:29:00 EST, Weight Dosing Start Date: 03/23/24 Stop Date: 03/30/24 Status: Ordered levoFLOXacin 750 mg oral tablet 750 mg = 1 tab, Oral, every 24 hr, # 7 tab, 0 Refill(s), Pharmacy: [facility]58, 172, cm, 10/16/23 11:06:00 EDT, Height, 78.1, kg, 03/29/24 13:18:00 EST, Weight Dosing Start Date: 03/30/24 Stop Date: 04/06/24 Status: Ordered levothyroxine 88 mcg (0.088 mg) oral tablet See Instructions, TAKE ONE TABLET BY MOUTH EVERY DAY BEFORE BREAKFAST, # 90 tab, 2 Refill(s), Pharmacy: [facility]58, 172, cm, 10/16/23 11:06:00 EDT, Height, 76.16, kg, 12/08/23 11:08:00 EDT,Weight Dosing Start Date: 02/04/24 Status: Ordered rosuvastatin 20 mg oral capsule 20 mg = 1 cap, Oral, Daily, # 90 cap, 3 Refill(s), Pharmacy: [facility], 172, cm, 10/16/23 11:06:00 EDT, Height, 74.65, kg, 10/16/23 11:12:00 EDT, Weight Dosing Start Date: 11/11/23 Status: Ordered Symbicort 80 mcg-4.5 mcg/inh inhalation aerosol 2 puffs, Inhale, BID, # 6.9 g, 0 Refill(s), Pharmacy: [facility]58, 172, cm, 10/16/23 11:06:00 EDT, Height, 73.94, kg, 03/16/24 14:29:00 EST, Weight Dosing Start Date: 03/16/24 Status: Ordered venlafaxine 75 mg oral capsule, extended release 1 cap, Oral, Daily, # 90 cap, 4 Refill(s), Pharmacy: [facility]58, 172, cm, 10/16/23 11:06:00 EDT, Height, [...] Physician Member Role: Informed Provider Address: [address] Care Team Related Persons Name: DORI LEI Insurance Providers Guarantor name: TINY LEI Health Plan Information #: 1 Payer: [facility] Member Number: [id number] Policy Number: NA Health Plan Information #: 2 Payer: [facility] Member Number: [id number] Policy Number: NA
--- OUTSIDE RECORDS SUMMARY | 2024-05-31 01:18 | XMS_ITS | Continuity of Care Document ---
Author Organization [facility] Address [address] [place] [address] Care Team Providers Care Cupola Worker Name Role Phone Jose Angel Hopkins Primary Care Physician Encounter [facility] Date(s): 04/19/24 - 04/19/24 [facility] [address] [place] [address] Discharge Disposition: Home or Self Care Attending Physician: Tej Tipton MD Admitting Physician: Tej Tipton MD Referring Physician: Tej Tipton MD Encounter Type: Outpatient Allergies, Adverse Reactions, Alerts No Known Medication Allergies Assessment and Plan Future Appointments Future Scheduled Tests Laboratory* Lipid Panel 01/01/24 Immunizations Given and Recorded Vaccine Date Status Refusal Reason SARS-CoV-2 (COVID-19) mRNA-1273(6y+ biva 1 04/02/21 Recorded SARS-CoV-2 (COVID-19) mRNA-1273 vaccine 08/03/20 R ecorded SARS-CoV-2 (COVID-19) mRNA-1273 vaccine 07/07/20 R ecorded influenza virus vaccine, live 01/21/20 Recorded tetanus/diphth/pertuss (Tdap) adult/adol 10/02/16 Recorded 1Result Comment: [facility] Problem List Condition Confirmation Course Effective Dates [...] 1Biopsy: Vin Results Laboratory List Name Date CBC w/ Diff 04/19/24 Comprehensive Metabolic Panel 04/19/24 Lactate Dehydrogenase 04/19/24 Automated Diff 04/19/24 Most recent to oldest [Reference Range]: 1 WBC [5.0-10.0 x10^3/mcL] 9.8 x10^3/mcL (04/19/24 8:47 AM) RBC [4.6-6.0 x10^6/mcL] 5.2 x10^6/mcL (04/19/24 8:47 AM) Neutro Auto [40.0-75.0 %] 75.4 % *HI* (04/19/24 8:47 AM) Lymph Auto [20.0-50.0 %] 12.6 % *LOW* (04/19/24 8:47 AM) Haskell Auto [2.0-15.0 %] 7.5 % (04/19/24 8:47 AM) Basophil Auto [0.0-1.0 %] 0.4 % (04/19/24 8:47 AM) BUN [7-18 mg/dL] 22 mg/dL *HI* (04/19/24 8:47 AM) Glucose Level [74-106 mg/dL] 74 mg/dL (04/19/24 8:47 AM) Potassium Level [3.5-5.1 mmol/L] 4.2 mmo l/L (04/19/24 8:47 AM) MCV [80.0-96.0 fL] 84.5 fL (04/19/24 8:47 AM) AST [15-37 unit/L] 37 unit/L (04/19/24 8:47 AM) ALT [16-63 unit/L] 61 unit/L (04/19/24 8:47 AM) MCHC [31.0-35.0 g/dL] 33.3 g/dL (04/19/24 8:47 AM) Sodium Level [136-145 mmol/L] 137 mmol/L (04/19/24 8:47 AM) Hct [41.0-51.0 %] 43.5 % (04/19/24 8:47 AM) Calcium Level [8.5-10.1 mg/dL] 8.6 mg/dL (04/19/24 8:47 AM) Albumin Level [3.4-5.0 g/dL] 2.9 g/dL *LOW* (04/19/24 8:47 AM) Protein Total [6.4-8.2 g/dL] 7.4 g/dL (04/19/24 8:47 AM) MCH [26.0-32.0 pg] 28.2 pg (04/19/24 8:47 AM) Neutro Absolute 7.4 x10^3/mcL *NA* (04/19/24 8:47 AM) Bilirubin Total [0.2-1.0 mg/dL] 0.6 mg/d L (04/19/24 8:47 AM) Hgb [14.0-18.0 g/dL] 14.5 g/dL (04/19/24 8:47 AM) Alk Phos [46-146 unit/L] 124 unit/L (04/19/24 8:47 AM) LDH [85-227 unit/L] 164 unit/L (04/19/24 8:47 AM) Platelets [130-450 x10^3/mcL] 308 x10^3/ mcL (04/19/24 8:47 AM) CO2 [21-32 mmol/L] 30 mmol/L (04/19/24 8:47 AM) eGFR Non-AA [>=60] 73 (04/19/24 8:47 AM) eGFR AA [>=60] 73 (04/19/24 8:47 AM) Chloride Level [98-107 mmol/L] 103 mmol/ L (04/19/24 8:47 AM) RDW-CV [11.5-14.5 %] 12.7 % (04/19/24 8:47 AM) Imm Gran Auto [0.0-0.9 %] 0.4 % (04/19/24 8:47 AM) Creatinine Level [0.70-1.30 mg/dL] 1.26 mg/dL (04/19/24 8:47 AM) Eos, Auto [1.0-6.0 %] 3.7 % (04/19/24 8:47 AM) Social History Social History Type Response Tobacco Never tobacco user T obacco Use:. Sex Male Sex Representation Male (finding) Patient Care team information Care Team Personnel Name: Jose Angel Hopkins MD Position: Physician Member Role: Informed Provider Address: [address] Telecom: Care Team Related Persons Name: DORI LEI Insurance Providers Guarantor name: TINY LEI Health Plan Information #: 1 Payer: [facility] Member Number: [id number] Policy Number: NA Group Number: [id number] Health Plan Information #: 2 Payer: [employer] Member Number: [id number] Policy Number: NA Group Number: NA
--- OUTSIDE RECORDS SUMMARY | 2024-05-31 01:18 | XMS_ITS | Continuity of Care Document ---
Author Organization [facility] Address [address] [place] [address] Care Team Providers Care Computer Peripheral Equipment Operator Name Role Phone Jose Angel Hopkins Primary Care Physician [facility] Date[facility]s): 12/04/23 - 12/04/23 [facility] [address] [place] [address] Discharge Disposition: Home or Self Care Attending Physician: Jose Angel Hopkins MD Admitting Physician: Jose Angel Hopkins MD Referring Physician: Jose Angel Hopkins MD Allergies, Adverse Reactions, Alerts No Known Medication Allergies Assessment and Plan Future Appointments Future Scheduled Tests Laboratory* Lipid Panel 11/11/23 * Thyroid Stimulating Hormone 11/07/23 Immunizations Given and Recorded Vaccine Date Status [...] needed, # 18 g, 6 Refill(s), Pharmacy: [facility] #58, 173.5, cm, 10/14/22 9:22:00 EDT, Height Start Date: 04/08/23 Status: Ordered amLODIPine 5 mg oral tablet 5 mg = 1 tab, Oral, Daily, # 90 tab, 3 Refill(s), Pharmacy: [facility] Start Date: 06/27/22 Status: Ordered cyclobenzaprine 10 mg oral tablet See Instructions, PRN as needed for muscle spasm, one po qhs prn spasm, # 20 tab, 1 Refill(s), Pharmacy: [facility] #58, 173.5, cm, 10/14/22 9:22:00 EDT, Height Start Date: 08/20/23 Status: Ordered levothyroxine 88 mcg (0.088 mg) oral tablet 88 mcg = 1 tab, Oral, Daily, as a single daily dose before breakfast; DOSE INCREASE, # 90 tab, 0 Refill(s), Pharmacy: [facility] #58, 172, cm, 10/16/23 11:06:00 EDT, Height, 74.65, kg, 10/15/2410:12:00 EDT, Weight Dosing Start Date: 11/11/23 Status: Ordered rosuvastatin 20 mg oral capsule 20 mg = 1 cap, Oral, Daily, # 90 cap, 3 Refill(s), Pharmacy: [facility] #58, 172, cm, 10/16/23 11:06:00 EDT, Height, 74.65, kg, 10/16/23 11:12:00 EDT, Weight Dosing Start Date: 11/11/23 Status: Ordered venlafaxine 75 mg oral capsule, extended release 1 cap, Oral, Daily, # 90 cap, 4 Refill(s), Pharmacy: [facility] #58, 172, cm, 10/16/23 11:06:00 EDT, Height, [...] 1Biopsy: Vin Results Laboratory List Name Date Urinalysis with Micro if Indicated and C ulture if Indicated 12/04/23 Most recent to oldest [Reference Range]: 1 UA Color Yellow (12/04/23 10:01 AM) UA Urobilinogen Normal *NA* (12/04/23 10:01 AM) UA Bili [Negative] Negative *NA* (12/04/23 10:01 AM) UA Ketones Negative *NA* (12/04/23 10:01 AM) UA Leuk Est Negative (12/04/23 10:01 AM) UA Nitrite Negative *NA* (12/04/23 10:01 AM) UA Glucose [Negative] Negative *NA* (12/04/23 10:01 AM) UA Protein Negative (12/04/23 10:01 AM) UA Blood Negative (12/04/23 10:01 AM) UA Spec Grav 1.010 *NA* (12/04/23 10:01 AM) UA pH 7.0 *NA* (12/04/23 10:01 AM) UA Appear Clear (12/04/23 10:01 AM) Social History Social History Type Response Tobacco Never tobacco user T obacco Use:. Sex Male Patient Care team information Care Team Personnel Name: Gume Christy MD Position: No Access Member Role: Informed Provider Address: Address: [facility] [address] [place] [address] Name: Jose Angel Hopkins MD Position: Physician Member Role: Primary Care Physician Address: Address: [address] [address] [place] Care Team Related Persons Name: DORI LEI
--- OUTSIDE RECORDS SUMMARY | 2024-05-31 01:18 | XMS_ITS | Continuity of Care Document ---
Author Organization [facility] Address [address] [place] [address] Care Team Providers Care Director Of Rooms Name Role Phone Jose Angel Hopkins Primary Care Physician Encounter [facility] Date(s): 11/05/23 - 11/05/23 [facility] [address] [place] [address] Discharge Disposition: Home or Self Care Attending [...] tetanus/diphth/pertuss (Tdap) adult/adol 10/02/16 Recorded 1Result Comment: [facility] Medications Albuterol (Eqv-ProAir HFA) 90 mcg/inh inhalation aerosol 2 puffs, Inhale, every 4 hr, PRN as needed for wheezing, As needed, # 18 g, 6 Refill(s), Pharmacy: [email or web address] #58, 173.5, cm, 10/14/22 9:22:00 EDT, Height Start Date: 04/08/23 Status: Ordered amLODIPine 5 mg oral tablet 5 mg = 1 tab, Oral, Daily, # 90 tab, 3 Refill(s), Pharmacy: [email or web address] Start Date: 06/27/22 Status: Ordered cyclobenzaprine 10 mg oral tablet See Instructions, PRN as needed for muscle spasm, one po qhs prn spasm, # 20 tab, 1 Refill(s), Pharmacy: [email or web address] #58, 173.5, cm, 10/14/22 9:22:00 EDT, Height Start Date: 08/20/23 Status: Ordered levothyroxine 50 mcg (0.05 mg) oral tablet TAKE ONE TABLET BY MOUTH EVERY DAY Start Date: 07/02/22 Status: Ordered venlafaxine 75 mg oral capsule, extended release 1 cap, Oral, Daily, # 90 cap, 4 Refill(s), Pharmacy: [email or web address] #58, 172, cm, 10/16/23 11:06:00 EDT, Height, 74.65, kg, 10/16/23 11:12:00 EDT, Weight Dosing Start Date: 10/16/23 Status: Ordered Problem List Condition Confirmation Course Effective Dates Status H ealth Status Informant Aspiration pneumonia Confirmed 03/29/20 Active Asthma Confirmed Active Choking due to phlegm in larynx Confirmed 04/19/20 Active Dehydration Confirmed 04/03/20 Active Depression Confirmed Active Drug-induced nausea and vomiting Confirmed 04/24/20 Active 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 Oropharyngeal dysphagia Confirmed 03/28/20 Active Pneumonia Confirmed Active Raynaud's disease Confirmed Active Xerodermia Confirmed Active Procedures Procedure Date Related Diagnosis Body Site Status Direct laryngoscopy with mert gical procedure 1 01/04/20 Completed 1Biopsy: Vin Results Laboratory List Name Date Lipid Panel 11/05/23 Thyroid Stimulating Hormone (TSH) 4 Most recent to oldest [Reference Range]: 1 Cholesterol Total [50-200 mg/dL] 293 mg/ dL *HI* (11/05/23 2:33 PM) LDL [0-130 mg/dL] 195 mg/dL *HI* (11/05/23 2:33 PM) HDL [40-60 mg/dL] 68 mg/dL *HI* (11/05/23 2:33 PM) Triglycerides [0-150 mg/dL] 148 mg/dL (11/05/23 2:33 PM) TSH [0.358-3.740 mcIntlUnit/mL] 4.453 mc IntlUnit/mL *HI* (11/05/23 2:33 PM) Social History Social History Type Response Tobacco Never tobacco user T obacco Use:. Sex Male Patient Care team information Care Team Personnel Name: Gume Christy MD Position: No Access Member Role: Informed Provider Address: Address: [facility] [address] [place] [address] Name: Jose Angel Hopkins MD Position: Physician Member Role: Primary Care Physician Address: Address: [id number] [place] [address] Care Team Related Persons Name: DORI LEI
--- OUTSIDE RECORDS SUMMARY | 2024-05-31 01:18 | XMS_ITS ---
Author Organization Unknown Address [address] [place] [phone] Phone Care Team Providers Care Columnist/Commentator Name Role Phone HARPER Lundberg Attending Unavailable HARMEET BARNETT Primary Unavailable Social History Type Status Start Date End Date Code Code Syst em Sex Male Hospital Discharge Instructions Should you have any questions prior to discharge, please contact a member of your healthcare team. If you have left the hospital and have any questions, please contact your primary care physician. Reason For Referral No Data Found Plan of Treatment No Data Found Encounters Encounter Diagnosis Start Date Code Code Sys tem 07/29/2023 [id number] SNOMED-CT Personal Care Team Section Performer Name Performer Role Active Date Inactive Da te
--- OUTSIDE RECORDS SUMMARY | 2024-05-31 01:18 | XMS_ITS | Continuity of Care Document ---
Author Organization [facility] Address [address] [place] [address] Care Team Providers Care Head Control Clerk Name Role Phone Jose Angel Hopkins Primary Care Physician Encounter [facility] Date(s): 03/06/22 - 03/06/22 [facility] [address] [place] [address] Discharge Disposition: Home or Self Care Attending Physician: Gume Christy Admitting Physician: Gume Christy Referring Physician: Gume Christy Allergies, Adverse Reactions, Alerts No Known Medication Allergies Immunizations Given and Recorded Vaccine Date Status Refusal Reason SARS-CoV-2 (COVID-19) mRNA-1273 vaccine 08/03/20 R ecorded SARS-CoV-2 (COVID-19) mRNA-1273 vaccine 07/07/20 R ecorded influenza virus vaccine, live 01/21/20 Recorded tetanus/diphth/pertuss (Tdap) adult/adol 10/02/16 Recorded Medications Albuterol (Eqv-ProAir HFA) 90 mcg/inh inhalation aerosol 2 puffs, Inhale, every 4 hr, PRN as needed for wheezing, As needed, # 18 g, 1 Refill(s), Pharmacy: [facility] Start Date: 11/27/21 Status: Ordered amLODIPine 5 mg oral tablet 5 mg = 1 tab, Oral, Daily, As needed for 30 days, # 90 tab, 3 Refill(s), Pharmacy: [facility] Start Date: 11/27/21 Status: Ordered Problem List Condition Confirmation Course Effective Dates Status Health St at[facility] Informant Asthma Confirmed Active 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 Sex Male Patient Care team information Care Team Personnel Name: Jose Angel Hopkins MD Position: Physician Member Role: Primary Care Physician Address: Address: [address] Care Team Related Persons Name: DORI LEI
--- OUTSIDE RECORDS SUMMARY | 2024-05-31 01:18 | XMS_ITS | Continuity of Care Document ---
Author Organization [facility] Address [address] [place] [address] Care Team Providers Care Transit Planning Manager Name Role Phone Jose Angel Hopkins Primary Care Physician Encounter [facility] Date(s): 11/04/22 - 11/04/22 [facility] [address] [place] [address] Discharge Disposition: Home or Self Care Attending Physician: Gume Christy MD Admitting Physician: Gume Christy MD Referring Physician: Gume Christy MD Allergies, Adverse Reactions, Alerts No Known Medication Allergies Assessment and Plan Future Appointments Future Scheduled Tests Laboratory* Lipid Panel 10/14/22 Immunizations Given and Recorded Vaccine Date Status Refusal Reason SARS-CoV-2 (COVID-19) mRNA-1273 vaccine 08/03/20 R ecorded SARS-CoV-2 (COVID-19) mRNA-1273 vaccine 07/07/20 R ecorded influenza virus vaccine, live 01/21/20 Recorded tetanus/diphth/pertuss (Tdap) adult/adol 10/02/16 Recorded Medications Albuterol (Eqv-ProAir HFA) 90 mcg/inh inhalation aerosol 2 puffs, Inhale, every 4 hr, PRN as needed for wheezing, As needed, # 18 g, 6 Refill(s), Pharmacy: [facility] Start Date: 06/27/22 Status: Ordered amLODIPine 5 mg oral tablet 5 mg = 1 tab, Oral, Daily, # 90 tab, 3 Refill(s), Pharmacy: [facility] Start Date: 06/27/22 Status: Ordered cyclobenzaprine 10 mg oral tablet See Instructions, PRN as needed for muscle spasm, one po qhs prn spasm, # 20 tab, 0 Refill(s), Pharmacy: [facility] Start Date: 10/14/22 Status: Ordered levothyroxine 50 mcg (0.05 mg) oral tablet TAKE ONE TABLET BY MOUTH EVERY DAY Start Date: 07/02/22 Status: Ordered Problem List Condition Confirmation Course Effective Dates Status H ealth Status Informant Aspiration pneumonia Confirmed 03/29/20 Active Asthma Confirmed Active Choking due to phlegm in larynx Confirmed 04/19/20 Active Dehydration Confirmed 04/03/20 Active Drug-induced nausea and vomiting Confirmed 04/24/20 Active 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 Sex Male Patient Care team information Care Team Personnel Name: Gume Christy MD Position: No Access Member Role: Informed Provider Address: Address: [facility] [place] [place] [facility] [address] [place] [id number] Name: Jose Angel Hopkins MD Position: Physician Member Role: Primary Care Physician Address: Address: [address] [address]- [place] Care Team Related Persons Name: DORI LEI
--- OUTSIDE RECORDS SUMMARY | 2024-05-31 01:18 | XMS_ITS | Continuity of Care Document ---
Author Organization [facility] Address [address] [place] [address] Care Team Providers Care Rubble Placer Name Role Phone Jose Angel Hopkins Primary Care Physician Encounter [facility] Date(s): 04/19/24 - 04/19/24 [facility] [address] [place] [address] Discharge Disposition: Home or Self Care Attending [...] tetanus/diphth/pertuss (Tdap) adult/adol 10/02/16 Recorded 1Result Comment: [facility] Problem List Condition Confirmation Course Effective [...] %] 12.6 % *LOW* (04/19/24 8:47 AM) [employer] [2.0-15.0 %] 7.5 % (04/19/24 8:47 [...] Position: Physician Member Role: Informed Provider Address: [address] Telecom: Care Team Related Persons Name: DORI LEI Insurance Providers Guarantor name: TINY LEI Health Plan Information #: 1 Payer: [facility] Member Number: [id number] Policy Number: NA Group Number: [id number] Health Plan Information #: 2 Payer: [facility] Member Number: [id number] Policy Number: NA Group Number: NA
--- OUTSIDE RECORDS SUMMARY | 2024-05-31 01:18 | XMS_ITS | Continuity of Care Document ---
Author Organization [facility] Address [address] [place] [address] Care Team Providers Care Insulation Engineman Name Role Phone Jose Angel Hopkins Primary Care Physician [phone] Encounter [facility] Date(s): 07/29/22 - 07/29/22 [facility] [address] [place] [address] Discharge Disposition: Home or Self Care Attending [...] hr, # 14 tab, 0 Refill(s), Pharmacy: [facility] Start Date: 07/02/22 Stop Date: 07/09/22 Status: Ordered Albuterol (Eqv-ProAir HFA) 90 mcg/inh inhalation aerosol 2 puffs, Inhale, every 4 hr, PRN as needed for wheezing, As needed, # 18 g, 6 Refill(s), Pharmacy: [facility] Start Date: 06/27/22 Status: Ordered amLODIPine 5 mg oral tablet 5 mg = 1 tab, Oral, Daily, # 90 tab, 3 Refill(s), Pharmacy: [facility]58 Start Date: 06/27/22 Status: Ordered levothyroxine [...] Laboratory List Name Date Thyroid Stimulating Hormone 07/29/22 Most recent to oldest [Reference Range]: 1 TSH [0.358-3.740 mcIntlUnit/mL] 11.464 m cIntlUnit/mL *HI* (07/29/22 12:51 PM) Social History Social History Type Response Tobacco Never tobacco user T obacco Use:. Sex Male Patient Care team information Care Team Personnel Name: Gume Christy MD Position: No Access Member Role: Informed Provider Address: Address: [facility] [address] [place] [address]- Name: Jose Angel Hopkins MD Position: Physician Member Role: Primary Care Physician Address: Address: [address] [address] [place] Care Team Related Persons Name: DORI LEI
--- OUTSIDE RECORDS SUMMARY | 2024-05-31 01:18 | XMS_ITS | Continuity of Care Document ---
Author Organization [facility] Address [address] [place] [address] Care Team Providers Care Wet End Operator Name Role Phone Jose Angel Hopkins Primary Care Physician Encounter [facility] Date(s): 04/23/22 - 04/23/22 [facility] [address] [place] [address] Discharge Disposition: Home or Self Care Attending [...] needed, # 18 g, 1 Refill(s), Pharmacy: [id number] Start Date: 03/25/22 Status: Ordered amLODIPine 5 mg oral tablet 5 mg = 1 tab, Oral, Daily, As needed for 30 days, # 90 tab, 3 Refill(s), Pharmacy: [facility] Start Date: 11/27/21 Status: Ordered Problem List Condition Confirmation Course Effective Dates Status Health [facility] Informant Asthma Confirmed Active 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 Sex Male Patient Care team information Personnel Name: Jose Angel Hopkins MD Address: Address: [address]
--- OUTSIDE RECORDS SUMMARY | 2024-05-31 01:18 | XMS_ITS | Continuity of Care Document ---
Author Organization [facility] Address [address] [place] [address] Care Team Providers Care Signal Operator Name Role Phone Jose Angel Hopkins Primary Care Physician Encounter [facility] Date(s): 12/31/23 - 12/31/23 [facility] [address] [place] [address] Discharge Disposition: Home or Self Care Attending [...] tetanus/diphth/pertuss (Tdap) adult/adol 10/02/16 Recorded 1Result Comment: [facility] Medications Albuterol (Eqv-ProAir HFA) 90 mcg/inh inhalation aerosol 2 puffs, Inhale, every 4 hr, PRN as needed for wheezing, As needed, # 18 g, 6 Refill(s), Pharmacy: [facility], 173.5, cm, 10/14/22 9:22:00 EDT, Height Start Date: 04/08/23 Status: Ordered amLODIPine 5 mg oral tablet 5 mg = 1 tab, Oral, Daily, # 90 tab, 3 Refill(s), Pharmacy: [id number] Start Date: 06/27/22 Status: Ordered cyclobenzaprine 10 mg oral tablet See Instructions, PRN as needed for muscle spasm, one po qhs prn spasm, # 20 tab, 1 Refill(s), Pharmacy: [facility], 173.5, cm, 10/14/22 9:22:00 EDT, Height Start Date: 08/20/23 Status: Ordered levothyroxine 88 mcg (0.088 mg) oral tablet 88 mcg = 1 tab, Oral, Daily, as a single daily dose before breakfast; DOSE INCREASE, # 90 tab, 0 Refill(s), Pharmacy: [facility], 172, cm, 10/16/23 11:06:00 EDT, Height, 74.65, kg, 10/15/2410:12:00 EDT, Weight Dosing Start Date: 11/11/23 Status: Ordered rosuvastatin 20 mg oral capsule 20 mg = 1 cap, Oral, Daily, # 90 cap, 3 Refill(s), Pharmacy: [facility], 172, cm, 10/16/23 11:06:00 EDT, Height, 74.65, kg, 10/16/23 11:12:00 EDT, Weight Dosing Start Date: 11/11/23 Status: Ordered venlafaxine 75 mg oral capsule, extended release 1 cap, Oral, Daily, # 90 cap, 4 Refill(s), Pharmacy: [facility], 172, cm, 10/16/23 11:06:00 EDT, Height, [...] Results Laboratory List Name Date Lipid Panel 12/31/23 Thyroid Stimulating Hormone (TSH) 12/31/23 Most recent to oldest [Reference Range]: 1 Cholesterol Total [50-200 mg/dL] 264 mg/ dL *HI* (12/31/23 8:15 AM) LDL [0-130 mg/dL] 178 mg/dL *HI* (12/31/23 8:15 AM) HDL [40-60 mg/dL] 71 mg/dL *HI* (12/31/23 8:15 AM) Triglycerides [0-150 mg/dL] 74 mg/dL (12/31/23 8:15 AM) TSH [0.358-3.740 mcIntlUnit/mL] 3.619 mc IntlUnit/mL (12/31/23 8:15 AM) Social History Social History Type Response Tobacco Never tobacco user T obacco Use:. Sex Male Sex Representation Male (finding) Patient Care team information Care Team Personnel Name: Gume Christy MD Position: No Access Member Role: Informed Provider Address: [facility] [address] [place] [address] Name: Jose Angel Hopkins MD Position: Physician Member Role: Primary Care Physician Address: [address] Care Team Related Persons Name: DORI LEI Insurance Providers Guarantor name: TINY LEI Health Plan Information #: 1 Payer: [place] [facility] Member Number: [id number] Policy Number: NA Health Plan Information #: 2 Payer: [place] [facility] Member Number: [id number] Policy Number: NA
--- OUTSIDE RECORDS SUMMARY | 2024-05-31 01:18 | XMS_ITS | Continuity of Care Document ---
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 Role Phone Jose Angel Hopkins Primary Care Physician [phone] Encounter [facility] Date(s): 04/02/24 - 04/02/24 [facility] [address] [place] [address] Encounter Diagnosis Lung mass(Discharge Diagnosis) - 04/02/24 Pleural effusion(Discharge Diagnosis) - 04/02/24 Discharge Disposition: Home or Self Care Attending Physician: Zan Navarro MD Admitting Physician: Zan Navarro MD Referring Physician: Zan Navarro MD Allergies, Adverse Reactions, Alerts No Known Medication Allergies Assessment and Plan Extracted from: Title:Clinical Document Author:Kimberly Marquez te:04/03/24 Diagnosis: 1. Lung mass Comment: Diagnosis: 2. Pleural effusion Comment: Diagnosis: Chest pain Comment: Extracted from: Title:ED Provider Note Author:Fady Sky MD Date:04/02/24 Assessment/Plan 1.??Lung mass??R91.8 Ordered: Discharge Patient, 04/02/24 18:01:00 EST, Home Independently, Constant Indicator ED Visit Follow Up [facility], Orders for future visit, 04/02/24 18:02:00 EST 1 week follow-up for lung mass, Lung mass Pleural effusion ?? 2.??Pleural effusion??J90 Ordered: Discharge Patient, 04/02/24 18:01:00 EST, Home Independently, Constant Indicator ED Visit Follow Up [facility], Orders for future visit, 04/02/24 18:02:00 EST 1 week follow-up for lung mass, Lung mass Pleural effusion ?? Patient Education Lung Mass Follow Up With When Contact Information Jose Angel Hopkins MD Within 1 week [facility] [address] [place] [address]- ?? Additional Instructions: Future Appointments Future Scheduled Tests Laboratory* Lipid Panel 01/01/24 Functional Status 04/02/24 Family Member Travel History No recent t ravel Recent Travel History No recent travel Other exposure to Infectious Disease Non e Immunizations Given and Recorded Vaccine Date Status Refusal Reason SARS-CoV-2 (COVID-19) mRNA-1273(6y+ biva 1 04/02/21 Recorded SARS-CoV-2 (COVID-19) mRNA-1273 vaccine 08/03/20 R ecorded SARS-CoV-2 (COVID-19) mRNA-1273 vaccine 07/07/20 R ecorded influenza virus vaccine, live 01/21/20 Recorded tetanus/diphth/pertuss (Tdap) adult/adol 10/02/16 Recorded 1Result Comment: [facility] Medications Albuterol (Eqv-ProAir HFA) 90 mcg/inh inhalation aerosol 2 puffs, Inhale, every 4 hr, PRN as needed for wheezing, As needed, # 18 g, 4 Refill(s), Pharmacy: [facility], 172, cm, 10/16/23 11:06:00 EDT, Height, 76.16, kg, 12/08/23 11:08:00 EDT, Weight Dosing Start Date: 02/12/24 Status: Ordered amLODIPine 5 mg oral tablet 5 mg = 1 tab, Oral, Daily, # 90 tab, 3 Refill(s), Pharmacy: [facility] Start Date: 06/27/22 Status: Ordered cyclobenzaprine 10 mg oral tablet See Instructions, PRN as needed for muscle spasm, one po qhs prn spasm, # 20 tab, 1 Refill(s), Pharmacy: [facility], 173.5, cm, 10/14/22 9:22:00 EDT, Height Start Date: 08/20/23 Status: Ordered levoFLOXacin 750 mg oral tablet 750 mg = 1 tab, Oral, every 24 hr, # 7 tab, 0 Refill(s), Pharmacy: [facility], 172, cm, 10/16/23 11:06:00 EDT, Height, 78.1, kg, 03/29/24 13:18:00 EST, Weight Dosing Start Date: 03/30/24 Stop Date: 04/06/24 Status: Ordered levothyroxine 88 mcg (0.088 mg) oral tablet See Instructions, TAKE ONE TABLET BY MOUTH EVERY DAY BEFORE BREAKFAST, # 90 tab, 2 Refill(s), Pharmacy: [facility], 172, cm, 10/16/23 11:06:00 EDT, Height, 76.16, kg, 12/08/23 11:08:00 EDT,Weight Dosing Start Date: 02/04/24 Status: Ordered rosuvastatin 20 mg oral capsule 20 mg = 1 cap, Oral, Daily, # 90 cap, 3 Refill(s), Pharmacy: [facility], 172, cm, 10/16/23 11:06:00 EDT, Height, 74.65, kg, 10/16/23 11:12:00 EDT, Weight Dosing Start Date: 11/11/23 Status: Ordered Symbicort 80 mcg-4.5 mcg/inh inhalation aerosol 2 puffs, Inhale, BID, # 6.9 g, 0 Refill(s), Pharmacy: [facility], 172, cm, 10/16/23 11:06:00 EDT, Height, 73.94, kg, 03/16/24 14:29:00 EST, Weight Dosing Start Date: 03/16/24 Status: Ordered venlafaxine 75 mg oral capsule, extended release 1 cap, Oral, Daily, # 90 cap, 4 Refill(s), Pharmacy: [facility], 172, cm, 10/16/23 11:06:00 EDT, Height, 74.65, kg, 10/16/23 11:12:00 EDT, Weight Dosing Start Date: 10/16/23 Status: Ordered Mental Status 04/02/24 Eye Opening Response Anabel Spontaneous ly Best Verbal Response Anabel Oriented Best Motor Response Lenox Obeys comman ds Anabel Coma Score 15 Problem List Condition Confirmation Course Effective Dates [...] 1Biopsy: Vin Results Laboratory List Name Date NT- Pro BNP 04/02/24 CBC w/ Diff 04/02/24 Comprehensive Metabolic Panel (CMP) 04/02 Troponin-I 04/02/24 Automated Diff 04/02/24 Most recent to oldest [Reference Range]: 1 WBC [5.0-10.0 x10^3/mcL] 9.4 x10^3/mcL (04/02/24 2:28 PM) RBC [4.6-6.0 x10^6/mcL] 5.3 x10^6/mcL (04/02/24 2:28 PM) Neutro Auto [40.0-75.0 %] 77.7 % *HI* (04/02/24 2:28 PM) Lymph Auto [20.0-50.0 %] 14.9 % *LOW* (04/02/24 2:28 PM) Stephenson Auto [2.0-15.0 %] 4.6 % (04/02/24 2:28 PM) Basophil Auto [0.0-1.0 %] 0.4 % (04/02/24 2:28 PM) BUN [7-18 mg/dL] 13 mg/dL (04/02/24 2:28 PM) Glucose Level [74-106 mg/dL] 101 mg/dL (04/02/24 2:28 PM) Potassium Level [3.5-5.1 mmol/L] 4.3 mmo l/L (04/02/24 2:28 PM) MCV [80.0-96.0 fL] 84.0 fL (04/02/24 2:28 PM) AST [15-37 unit/L] 30 unit/L (04/02/24 2:28 PM) ALT [16-63 unit/L] 31 unit/L (04/02/24 2:28 PM) MCHC [31.0-35.0 g/dL] 33.5 g/dL (04/02/24 2:28 PM) Troponin-I [0.0-76.2 pg/mL] <5.0 pg/mL (04/02/24 2:28 PM) Sodium Level [136-145 mmol/L] 139 mmol/L (04/02/24 2:28 PM) Hct [41.0-51.0 %] 44.2 % (04/02/24 2: PM) Calcium Level [8.5-10.1 mg/dL] 9.3 mg/dL (04/02/24 2: PM) Albumin Level [3.4-5.0 g/dL] 3.5 g/dL (04/02/24 2:28 PM) Protein Total [6.4-8.2 g/dL] 8.1 g/dL (04/02/24 2:28 PM) MCH [26.0-32.0 pg] 28.1 pg (04/02/24 2:28 PM) Neutro Absolute 7.3 x10^3/mcL *NA* (04/02/24 2: PM) Bilirubin Total [0.2-1.0 mg/dL] 0.5 mg/d L (04/02/24 2:28 PM) Hgb [14.0-18.0 g/dL] 14.8 g/dL (04/02/24 2:28 PM) Alk Phos [46-146 unit/L] 122 unit/L (04/02/24 2:28 PM) Platelets [130-450 x10^3/mcL] 312 x10^3/ mcL (04/02/24 2:28 PM) CO2 [21-32 mmol/L] 28 mmol/L (04/02/24 2:28 PM) eGFR Non-AA [>=60] 76 (04/02/24 2:28 PM) eGFR AA [>=60] 76 (04/02/24 2:28 PM) NT-proBNP [0-125 pg/mL] 28 pg/mL (04/02/24 4:13 PM) Chloride Level [98-107 mmol/L] 102 mmol/ L (04/02/24 2:28 PM) RDW-CV [11.5-14.5 %] 12.7 % (04/02/24 2:28 PM) Imm Gran Auto [0.0-0.9 %] 0.3 % (04/02/24 2:28 PM) Creatinine Level [0.70-1.30 mg/dL] 1.22 mg/dL (04/02/24 2:28 PM) Eos, Auto [1.0-6.0 %] 2.1 % (04/02/24 2:28 PM) Vital Signs Most recent to oldest [Reference Range]: 1 2 3 Temperature Temporal Artery [36-38 Deg C] 36.0 Deg C (04/02/24 2:00 PM) Peripheral Pulse Rate [60-100 bpm] 77 bpm (04/02/24 5:26 PM) 64 bpm (04/02/24 5:00 PM) 64 bpm (04/02/24 4:30 PM) Heart Rate Monitored [60-100 bpm] 74 bpm (04/02/24 5:30 PM) 81 bpm (04/02/24 5:26 PM) 66 bpm (04/02/24 5:00 PM) Respiratory Rate [-24 br/min] 13 br/min (04/02/24 5:30 PM) 15 br/min (04/02/24 5:26 PM) 8 br/min *LOW* (04/02/24 5:00 PM) Blood Pressure [90-120/60-80 mmHg] 142/93mmHg *HI* (04/02/24 4:30 PM) 137/95mmHg *HI* (04/02/24 4:00 PM) 137/91mmHg *HI* (04/02/24 3:30 PM) Mean Arterial Pressure, Cuff [65-140 mmHg] 109 mmHg (04/02/24 4:30 PM) 109 mmHg (04/02/24 4:00 PM) 106 mmHg (04/02/24 3:30 PM) Weight Estimated 74.84 kg (04/02/24 2:00 PM) Body Mass Index Estimated 25.3 kg/m2 (04/02/24 2:00 PM) Height/Length Estimated 172 cm (04/02/24 2:00 PM) Social History Social History Type Response Tobacco Never tobacco user T obacco Use:. Sex Male Sex Representation Male (finding) Hospital Discharge Instructions Patient Education 04/02/2024 17:02:39 Lung Mass Lung Mass A lung mass is a growth in the lung that is larger than 1.2 inches (3 cm). Smaller growths are called nodules. Most lung, or pulmonary, nodules are not cancer. Lung masses have a higher risk of beingcancer than nodules do. A lung mass is sometimes found during a routine chest X-ray or while other imaging tests are done to check for other problems. Lung masses include: ??? Tumors. These may be cancerous (malignant) or noncancerous (benign). ??? Granulomas. These are infectious masses. They are caused by inflammation from bacterial infections, such as tuberculosis, or from fungal infections. ??? Noninfectious masses. Some diseases that cause lung inflammation may also cause lung masses to form. ??? Blood vessel malformations. What are the causes? This condition may be caused by: ??? A bacterial, fungal, or viral infection, such as tuberculosis. The infection is usually an old and inactive one. ??? Cancerous tissue, such as lung cancer or a cancer in another part of the body that has spread to the lung. ??? A noncancerous mass of tissue. ??? Inflammation from conditions such as rheumatoid arthritis. ??? Abnormal blood vessels in the lungs. What are the signs or symptoms? Usually, there are no symptoms of this condition. If symptoms appear, they are usually related to the underlying cause or due to pressure on surrounding tissue. For example, if the condition is caused by an infection, you may have a cough or a fever. How is this diagnosed? This condition may be diagnosed based on testing to find the cause of the mass. If a lung mass is found, you may have: ??? A physical exam. ??? Blood tests. ??? Imaging tests. These may include: ??? Chest X-rays. ??? CT scan. This test shows smaller pulmonary nodules more clearly and with more detail than an X-ray. ??? Positron emission tomography (PET) scan. This test is done to check if a nodule or mass is cancerous. During the test, a small amount of a radioactive substance is injected into the bloodstream. Then a picture is taken. ??? Biopsy to evaluate for cancer or confirm a diagnosis. This procedure involves removing a tissuesample from the mass by: ??? Inserting a needle through the chest. ??? Using a scope placed down into the lung. ??? Doing open surgery. Tests and physical exams may be done once, or they may be done regularly for a period of time. Tests and exams that are done regularly will help monitor whether the mass is growing and becoming a concern. How is this treated? Treatment for a lung mass depends on the cause and whether the mass is cancerous. Treatment optionsfor a cancerous lung mass may include: ??? Surgical removal. ??? Radiation therapy. This therapy uses high-energy X-rays to kill cancer cells. ??? Chemotherapy. This therapy uses medicines to slow down or stop the growth of cancer. ??? Targeted therapy, if the mass is cancerous. In this therapy, medicines are used that directly fight cancer cells and do not harm normal cells. ??? Immunotherapy, if the mass is cancerous. This therapy uses medicines that help your disease-fighting system (immune system) fight cancer cells. Noncancerous masses may require treatment specific to the cause. Follow these instructions at home: If you have had surgery or a biopsy, your health care provider will give you specific instructions for taking care of yourself at home after your procedure. Follow these instructions carefully. General home care instructions include: ??? Take noqs-nem-ebpadyf and prescription medicines only as told by your health care provider. ??? Return to your normal activities as told by your health care provider. Ask your health care provider what activities are safe for you. ??? Do not use any products that contain nicotine or tobacco. These products include cigarettes, chewing tobacco, and vaping devices, such as e-cigarettes. If you need help quitting, ask your health care provider. ??? Keep all follow-up visits. This is important. Contact a health care provider if: ??? You have pain in your chest, back, or shoulder. ??? You are short of breath or have trouble breathing when you are active. ??? You develop a cough, or you develop hoarseness for an unexplained reason. ??? You feel sick or unusually tired. ??? You do not feel like eating, or you lose weight without trying. ??? You get chills or night sweats. ??? You need two or more pillows to sleep on at night. ??? You have any of these problems: ??? A fever and symptoms that suddenly get worse. ??? A fever or persistent symptoms for more than 2???3 days. Get help right away if: ??? You cannot catch your breath. ??? You have sudden chest pain. ??? You start making high-pitched whistling sounds when you breathe, most often when you breathe out (you wheeze). ??? You cannot stop coughing, or you cough up blood or bloody mucus from your lungs (sputum). ??? You become dizzy or feel like you may faint. These symptoms may represent a serious problem that is an emergency. Do not wait to see if the symptoms will go away. Get medical help right away. Call your local emergency services (911 in the [place] Do not drive yourself to the hospital. Summary ??? A lung mass is a growth in the lung that is larger than 1.2 inches (3 cm). ??? Lung masses have a higher risk of being cancer than do smaller growths. ??? Sometimes a lung mass is found during a routine chest X-ray or other imaging test. ??? Your health care provider may remove a tissue sample of the lung mass for testing (do a biopsy)to rule out or confirm cancer. ??? Treatment for this condition depends on the cause. This information is not intended to replace advice given to you by your health care provider. Make sure you discuss any questions you have with your health care provider. Document Revised: 11/01/2020 Document Reviewed: 11/01/2020 [employer] Patient Education ?? 2022 [employer]. Follow Up Care 04/02/2024 13:57:50 With:Jose Angel Hopkins MD Address: [address] [place] [address]- When:1 week Physician Emergency department Note * Fady Sky MD: PERFORM Event Display: ED Note Physician Authored Date: [id number] TINY LEI :1980 Age:43 years Sex:Male Visit Date:04/02/2024 Primary Care Physician: Jose Angel Hopkins MD Basic Information Time Seen: Fady Sky MD / 04/02/2024 13:58 Chief Complaint Dx with pneumonia two weeks ago and I was placed on levaquin for that but now i'm having chest pain as well. Pt states I can't take a deep breath chest pain is there without deep breathing. History Of Present Illness: 43-year-old male presents with dyspnea for 2 months, was on antibiotics recently as an outpatient for pneumonia.?? Having some chest pain as well Review of Systems: Dyspnea, chest pain Physical Exam Vitals & Measurements T:??36.0?C ??(Temporal Artery)?? HR:??74??(Monitored)?? RR:??13?? BP:??142/93?? SpO2:??100%?? HT:??172??cm?? WT:??74.84??kg??(Estimated)?? BMI:??25.3?? Pain Score:??6?? O2 Therapy:??Room air?? Patient not in any acute distress, clear to auscultation Medical Decision Makin-year-old male presents with dyspnea and chest pain.?? Vitals are stable. ??EKG??on independent review??shows a sinus rhythm normal axis and intervals no ST segment elevations or depressions.?? Labs and troponin and BNP are acutely unremarkable. ??Doubt ACS.?? Chest x-ray??on independent review shows worsening??right-sided pleural effusion and infiltrates. 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 ??Unfortunately CT scan shows??a large right??lower lung mass with associated pleural effusion. ??I spoke with [facility]??oncology, Dr. Farmer,??will inform head and neck team about??the overall findings.Spoke with interventional radiology, Dr. Richard,??who states they will contact the patient to have a procedure done??urgently??over the next week for biopsy??to try and confirm diagnosis.?? Of course the concern here would be??primary or metastatic disease given his history of cancer.?? I had a long conversation with the patient discussing the overall imaging findings. ??Before the??consults were obtained at [facility], patient stated he wanted to go home and??talk with his and be with his given the overall findings.?? I did call the patient back and tell him about the follow-up with [facility], and the for step would be interventional radiology to try to identify??an exact diagnosis before treatment can begin. ??Also told him after interventional radiology??he should follow-up with primary care??in 1 to 2 weeks.?? At this point in time he is not having any??symptoms directly related to of pneumonia such as a fever fatigue??or cough,??statedthat he could stop the antibiotics, could always restart them if he developed??pneumonia??symptoms. ??Discharge stable condition with return precautions ED. Procedure No Qualifying Data Assessment/Plan 1.??Lung mass??R91.8 Ordered: Discharge Patient, 04/02/24 18:01:00 EST, Home Independently, Constant Indicator ED Visit Follow Up [facility], Orders for future visit, 04/02/24 18:02:00 EST 1 week follow-up for lung mass, Lung mass Pleural effusion ?? 2.??Pleural effusion??J90 Ordered: Discharge Patient, 04/02/24 18:01:00 EST, Home Independently, Constant Indicator ED Visit Follow Up [facility], Orders for future visit, 04/02/24 18:02:00 EST 1 week follow-up for lung mass, Lung mass Pleural effusion ?? Patient Education Lung Mass Follow Up With When Contact Information Jose Angel Hopkins MD Within [address] [place] [address]- Additional Instructions: Medication Reconciliation Unchanged albuterol (Albuterol (Eqv-ProAir HFA) 90 mcg/inh inhalation aerosol)2 Puffs Inhale (breathe in) every 4 hours as needed as needed for wheezing. As needed. Refills: 4. ?? amLODIPine (amLODIPine 5 mg oral tablet)1 tab Oral (given by mouth) every day. Refills: 3. ?? budesonide-formoterol (Symbicort 80 mcg-4.5 mcg/inh inhalation aerosol)2 Puffs Inhale (breathe in) 2 times a day. Refills: 0. ?? cyclobenzaprine (cyclobenzaprine 10 mg oral tablet)one po qhs prn spasm; as needed as needed for muscle spasm. Refills: 1. ?? levoFLOXacin (levoFLOXacin 750 mg oral tablet)1 tab Oral (given by mouth) every 24 hours for 7 Days. Refills: 0. ?? levothyroxine (levothyroxine 88 mcg (0.088 mg) oral tablet)TAKE ONE TABLET BY MOUTH EVERY DAY BEFORE BREAKFAST. Refills: 2. ?? rosuvastatin (rosuvastatin 20 mg oral capsule)1 Capsules Oral (given by mouth) every day. Refills: 3. ?? venlafaxine (venlafaxine 75 mg oral capsule, extended release)1 Capsules Oral (given by mouth) every day. Refills: 4. Problem List/Past Medical History Ongoing Aspiration pneumonia Asthma Choking due to phlegm in larynx Dehydration Depression Drug-induced nausea and vomiting Hypothyroid Malignant tumor of tonsil Oropharyngeal dysphagia Pneumonia Raynaud's disease Urine frequency Xerodermia Historical No qualifying data Procedure/Surgical History ???Direct laryngoscopy with surgical procedure (01/05/2020) Allergies No Known Medication Allergies Social History Alcohol Past Electronic Cigarette/Vaping Electronic Cigarette Use: Never. Employment/School Employed Home/Environment Lives with Children, Spouse. Substance Use Never Tobacco Never tobacco user Tobacco Use:. Family History Asthma: Mother. Referral Orders ED Visit Follow Up [facility] [place] for future visit, 04/02/24 18:02:00 EST 1 week follow-up for lung mass, Lung mass Pleural effusion Lab Results CBC and Differential?? LATEST RESULTS?? WBC?? 04/02/24 14:28?? 9.4?? RBC?? 04/02/24 14:28?? 5.3?? Hgb?? 04/02/24 14:28?? 14.8?? Hct?? 04/02/24 14:28?? 44.2?? MCV?? 04/02/24 14:28?? 84.0?? MCH?? 04/02/24 14:28?? 28.1?? MCHC?? 04/02/24 14:28?? 33.5?? RDW-CV?? 04/02/24 14:28?? 12.7?? Platelets?? 04/02/24 14:28?? 312?? Neutro Auto?? 04/02/24 14:28?? 77.7 ??High?? Lymph Auto?? 04/02/24 14:28?? 14.9 ??Low?? Stephenson Auto?? 04/02/24 14:28?? 4.6?? Eos, Auto?? 04/02/24 14:28?? 2.1?? Basophil Auto?? 04/02/24 14:28?? 0.4?? Imm Gran Auto?? 04/02/24 14:28?? 0.3?? Neutro Absolute?? 04/02/24 14:28?? 7.3? Routine Chemistry?? LATEST RESULTS?? Sodium Level?? 04/02/24 14:28?? 139?? Potassium Level?? 04/02/24 14:28?? 4.3?? Chloride Level?? 04/02/24 14:28?? 102?? CO2?? 04/02/24 14:28?? 28?? Alk Phos?? 04/02/24 14:28?? 122?? AST?? 04/02/24 14:28?? 30?? ALT?? 04/02/24 14:28?? 31?? BUN?? 04/02/24 14:28?? 13?? Glucose Level?? 04/02/24 14:28?? 101?? Creatinine Level?? 04/02/24 14:28?? 1.22?? eGFR AA?? 04/02/24 14:28?? 76?? eGFR Non-AA?? 04/02/24 14:28?? 76?? Calcium Level?? 04/02/24 14:28?? 9.3?? Protein Total?? 04/02/24 14:28?? 8.1?? Albumin Level?? 04/02/24 14:28?? 3.5?? Bilirubin Total?? 04/02/24 14:28?? 0.5? Cardiac Isoenzymes?? LATEST RESULTS?? Troponin-I?? 04/02/24 14:28?? <5.0?? NT-proBNP?? 04/02/24 16:13?? 28? Electronically Signed on 04/02/2024 22:41 EST Fady Sky MD Emergency department Discharge instructions * Fady Sky MD: PERFORM Event Display: ED Discharge Information Authored Date: [id number] TINY LEI :1980 Age:43 years Sex:Male Visit Date:04/02/2024 Primary Care Physician: Jose Angel Hopkins MD Discharge Instructions We would like to thank you for allowing us to assist you with your healthcare needs. The following includes patient education materials and information regarding your injury/illness. Diagnosis from Today's Visit Lung mass Pleural effusion Discharge Vitals Temperature??(Temporal Artery) 96.8 ??F (36.0 ??C) Heart Rate??(Monitored) 74 Respiratory Rate?? 13 Blood Pressure?? 142/93?? SpO2?? 100% Height?? 67.72 in (172 cm) Weight??(Estimated) 165.02 lb (74.84 kg) BMI?? 25.3 Allergies No Known Medication Allergies What to Do Next Instructions from Your Care Team You were seen in the emergency department today. ??Your CT scan unfortunately does show a??lung mass in the right??lung with fluid around the lung. ??Given your history, the concern for this would be??cancer. ??However,??without a biopsy or a tissue diagnosis,??the exact??cause or diagnosis of the mass is still yet to be determined. ??In order to get an exact diagnosis, we will need to refer you to [facility],??and I will continue to work on this??and give you a phone call??with??the overall plan moving forward. ??Please come back to the ER with any worsening symptoms.?? You Need to Schedule the Following Appointments Follow Up with??Jose Angel Hopkins MD When:??Within 1 week Where: [facility] [address] [address]- Upcoming Scheduled Appointments Friday 8:20 AM EST ?? 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 With: Jose Angel [place] MD Where: [address] [address] Status: Confirmed You were treated [...] Emergency Department. Medications What How Much When Why Instructions Next Dose Unchanged albuterol (Albuterol (Eqv-ProAir HFA) 90 mcg/ inh inhalation aerosol) 2 Puffs Inhale (breathe in) Every 4 hours as needed for as needed for wheezing As needed ?? Unchanged amLODIPine (amLODIPine 5 mg oral tablet) 1 tab Oral (given by mouth) Every day Unchanged budesonide-formoterol (Symbicort 80 mcg-4.5 mcg/ inh inhalation aerosol) 2 Puffs Inhale (breathe in) 2 times a day Asthma Unchanged cyclobenzaprine (cyclobenzaprine 10 mg oral tablet) See instructions one po qhs prn spasm, As needed for as needed for muscle spasm ?? Unchanged levoFLOXacin (levoFLOXacin 750 mg oral tablet) 1 tab Oral (given by mouth) Every 24 hours Pneumonia Duration: 7 Days Unchanged levothyroxine (levothyroxine 88 mcg (0.088 mg) oral tablet) See instructions TAKE ONE TABLET BY MOUTH EVERY DAY BEFORE BREAKFAST ?? Unchanged rosuvastatin (rosuvastatin 20 mg oral capsule) 1 Capsules Oral (given by mouth) Every day Hyperlipidemia Unchanged venlafaxine (venlafaxine 75 mg oral capsule, extended release) 1 Capsules Oral (given by mouth) Every day Education Materials Lung Mass A lung mass is a growth in the lung that is larger than 1.2 inches (3 cm). Smaller growths are called nodules. Most lung, or pulmonary, nodules are not cancer. Lung masses have a higher risk of beingcancer than nodules do. A lung mass is sometimes found during a routine chest X-ray or while other imaging tests are done to check for other problems. Lung masses include: ? Tumors. These may be cancerous (malignant) or noncancerous (benign). ? Granulomas. These are infectious masses. They are caused by inflammation from bacterial infections,such as tuberculosis, or from fungal infections. ? Noninfectious masses. Some diseases that cause lung inflammation may also cause lung masses to form. ? Blood vessel malformations. What are the causes? This condition may be caused by: ? A bacterial, fungal, or viral infection, such as tuberculosis. The infection is usually an old and inactive one. ? Cancerous tissue, such as lung cancer or a cancer in another part of the body that has spread to the lung. ? A noncancerous mass of tissue. ? Inflammation from conditions such as rheumatoid arthritis. ? Abnormal blood vessels in the lungs. What are the signs or symptoms? Usually, there are no symptoms of this condition. If symptoms appear, they are usually related to the underlying cause or due to pressure on surrounding tissue. For example, if the condition is caused by an infection, you may have a cough or a fever. How is this diagnosed? This condition may be diagnosed based on testing to find the cause of the mass. If a lung mass is found, you may have: ? A physical exam. ? Blood tests. ? Imaging tests. These may include: ? Chest X-rays. ? CT scan. This test shows smaller pulmonary nodules more clearly and with more detail than an X-ray. ? Positron emission tomography (PET) scan. This test is done to check if a nodule or mass is cancerous. During the test, a small amount of a radioactive substance is injected into the bloodstream. Thena picture is taken. ? Biopsy to evaluate for cancer or confirm a diagnosis. This procedure involves removing a tissue sample from the mass by: ? Inserting a needle through the chest. ? Using a scope placed down into the lung. ? Doing open surgery. Tests and physical exams may be done once, or they may be done regularly for a period of time. Tests and exams that are done regularly will help monitor whether the mass is growing and becoming a concern. How is this treated? Treatment for a lung mass depends on the cause and whether the mass is cancerous. Treatment optionsfor a cancerous lung mass may include: ? Surgical removal. ? Radiation therapy. This therapy uses high-energy X-rays to kill cancer cells. ? Chemotherapy. This therapy uses medicines to slow down or stop the growth of cancer. ? Targeted therapy, if the mass is cancerous. In this therapy, medicines are used that directly fightcancer cells and do not harm normal cells. ? Immunotherapy, if the mass is cancerous. This therapy uses medicines that help your disease-fighting system (immune system) fight cancer cells. Noncancerous masses may require treatment specific to the cause. Follow these instructions at home: If you have had surgery or a biopsy, your health care provider will give you specific instructions for taking care of yourself at home after your procedure. Follow these instructions carefully. General home care instructions include: ? Take undl-zgn-kbkhwpr and prescription medicines only as told by your health care provider. ? Return to your normal activities as told by your health care provider. Ask your health care provider what activities are safe for you. ? Do not use any products that contain nicotine or tobacco. These products include cigarettes, chewing tobacco, and vaping devices, such as e-cigarettes. If you need help quitting, ask your health careprovider. ? Keep all follow-up visits. This is important. Contact a health care provider if: ? You have pain in your chest, back, or shoulder. ? You are short of breath or have trouble breathing when you are active. ? You develop a cough, or you develop hoarseness for an unexplained reason. ? You feel sick or unusually tired. ? You do not feel like eating, or you lose weight without trying. ? You get chills or night sweats. ? You need two or more pillows to sleep on at night. ? You have any of these problems: ? A fever and symptoms that suddenly get worse. ? A fever or persistent symptoms for more than 2???3 days. Get help right away if: ? You cannot catch your breath. ? You have sudden chest pain. ? You start making high-pitched whistling sounds when you breathe, most often when you breathe out (you wheeze). ? You cannot stop coughing, or you cough up blood or bloody mucus from your lungs (sputum). ? You become dizzy or feel like you may faint. These symptoms may represent a serious problem that is an emergency. Do not wait to see if the symptoms will go away. Get medical help right away. Call your local emergency services (911 in the [place] Do not drive yourself to the hospital. Summary ? A lung mass is a growth in the lung that is larger than 1.2 inches (3 cm). ? Lung masses have a higher risk of being cancer than do smaller growths. ? Sometimes a lung mass is found during a routine chest X-ray or other imaging test. ? Your health care provider may remove a tissue sample of the lung mass for testing (do a biopsy) to rule out or confirm cancer. ? Treatment for this condition depends on the cause. This information is not intended to replace advice given to you by your health care provider. Make sure you discuss any questions you have with your health care provider. Document Revised: 11/01/2020 Document Reviewed: 11/01/2020 Elsevier Patient Education ?? 2022 [employer] Tests Performed Lab Test Name Test Result Date/Time WBC 9.4 x10^3/mcL 04/02/2024 14:28 EST RBC 5.3 x10^6/mcL 04/02/2024 14:28 EST Hgb 14.8 g/dL 04/02/2024 14:28 EST Hct 44.2 % 04/02/2024 14:28 EST MCV 84.0 fL 04/02/2024 14:28 EST MCH 28.1 pg 04/02/2024 14:28 EST MCHC 33.5 g/dL 04/02/2024 14:28 EST RDW-CV 12.7 % 04/02/2024 14:28 EST Platelets 312 x10^3/mcL 04/02/2024 14:28 EST Neutro Auto 77.7 % 04/02/2024 14:28 EST Lymph Auto 14.9 % 04/02/2024 14:28 EST Stephenson Auto 4.6 % 04/02/2024 14:28 EST Eos, Auto 2.1 % 04/02/2024 14:28 EST Basophil Auto 0.4 % 04/02/2024 14:28 EST Imm Gran Auto 0.3 % 04/02/2024 14:28 EST Neutro Absolute 7.3 x10^3/mcL 04/02/2024 14:28 EST Sodium Level 139 mmol/L 04/02/2024 14:28 EST Potassium Level 4.3 mmol/L 04/02/2024 14:28 EST Chloride Level 102 mmol/L 04/02/2024 14:28 EST CO2 28 mmol/L 04/02/2024 14:28 EST Alk Phos 122 unit/L 04/02/2024 14:28 EST AST 30 unit/L 04/02/2024 14:28 EST ALT 31 unit/L 04/02/2024 14:28 EST BUN 13 mg/dL 04/02/2024 14:28 EST Glucose Level 101 mg/dL 04/02/2024 14:28 EST Creatinine Level 1.22 mg/dL 04/02/2024 14:28 EST eGFR AA 76 04/02/2024 14:28 EST eGFR Non-AA 76 04/02/2024 14:28 EST Calcium Level 9.3 mg/dL 04/02/2024 14:28 EST Protein Total 8.1 g/dL 04/02/2024 14:28 EST Albumin Level 3.5 g/dL 04/02/2024 14:28 EST Bilirubin Total 0.5 mg/dL 04/02/2024 14:28 EST Troponin-I <5.0 pg/mL 04/02/2024 14:28 EST NT-proBNP 28 pg/mL 04/02/2024 16:13 EST Patient/Alarm Security Or Surveillance Monitor Signature Patient Name:TINY LEI I have received this information and my questions have been answered. Patient/Alarm Security Or Surveillance Monitor Name: Patient/Alarm Security Or Surveillance Monitor Signature: Relationship to Patient: Witness Name/Signature: Date: Electronically Signed on: 04/02/2024 18:04 ESTSigned by:TRM Discharge summary * Kimberly Marquez: PERFORM Event Display: Discharge Note Authored Date: [id number] * Kimberly Marquez: PERFORM Event Display: Discharge Note Authored Date: [id number] Diagnosis: 1. Lung mass Comment: Diagnosis: 2. Pleural effusion Comment: Diagnosis: Chest pain Comment: Electronically Signed on 04/03/2024 07:10 EST Kimberly Marquez Patient Care team information Care Team Personnel Name: Jose Angel Hopkins MD Position: Physician Member Role: Informed Provider Address: [address] [place] [address]- Care Team Related Persons Name: DORI LEI Insurance Providers Guarantor name: TINY LEI Health Plan Information #: 1 Payer: [employer] Member Number: [id number] Policy Number: NA Health Plan Information #: 2 Payer: [employer] [facility] Member Number: [id number] Policy Number: NA
--- OUTSIDE RECORDS SUMMARY | 2024-05-31 01:18 | XMS_ITS | Continuity of Care Document ---
Author Organization [facility] Address [address] [place] [address] Care Team Providers Care Staffing Account Manager Name Role Phone Jose Angel Hopkins Primary Care Physician Encounter [facility] Date(s): 04/08/23 - 04/08/23 [facility] [address] [place] [address] Encounter Diagnosis Bunion of right foot(Discharge Diagnosis) - 04/08/23 Discharge Disposition: Home or Self Care Attending Physician: Steve Corbin Admitting Physician: Steve Corbin Referring Physician: Steve Corbin Allergies, Adverse Reactions, Alerts No Known Medication [...] needed, # 18 g, 6 Refill(s), Pharmacy: [facility], 173.5, cm, 10/14/22 9:22:00 EDT, Height Start Date: 04/08/23 Status: Ordered amLODIPine 5 mg oral tablet 5 mg = 1 tab, Oral, Daily, # 90 tab, 3 Refill(s), Pharmacy: [facility] Start Date: 06/27/22 Status: Ordered cyclobenzaprine 10 mg oral tablet See Instructions, PRN as needed for muscle spasm, one po qhs prn spasm, # 20 tab, 0 Refill(s), Pharmacy: [facility] Start Date: 10/14/22 Status: Ordered levothyroxine [...] Access Member Role: Informed Provider Address: Address: [facility] [address] [place] [id number] [place] Name: Jose Angel Hopkins MD Position: Physician Member Role: Primary Care Physician Address: Address: [address] [address]- [place] Care Team Related Persons Name: DORI LEI
--- OUTSIDE RECORDS SUMMARY | 2024-05-31 01:19 | XMS_ITS | Encounter Summary ---
Author Organization [facility] [place] [address] Care Team Providers Care Resistance Brazer Name Role Phone Jose Angel Hopkins MD Primary Care Provider [phone] Encounter Details Date Type Department Care Team (Late Contact Info) Description 05/26/2024 Orders [place] [address] Rayshawn Suresh MD [facility] [place] [address] Adenocarcinoma, lung, right; Pleural effusion, malignant Social History Tobacco Use Types Packs/Day Years Used Date Smoking Tobacco: Never Smokeless Tobacco: Never Alcohol Use Standard Drinks/Week Comments Yes 1 (1 standard drink = 0.6 oz pur e alcohol) occaional Sex and Gender Information Value Date Recorded Sex Assigned at Not on file Gender Identity Not on file Sexual Orientation Not on file documented as of this encounter Plan of Treatment Upcoming Encounters Date Type Department Care Team (Late Contact Info) Description 05/31/2024 11:30 AM EST Office Visit Hematology/Oncolog y at [address] [phone] Tej Tipton MD [address] [facility] [place] [address] Stacy Valle APRN [facility] [place] [address] 06/01/2024 10:30 AM EST Scheduled View [place] [address] 06/01/2024 11:00 AM EST Office [place] [address] Luis E Chin MD [facility] [place] [address] 06/04/2024 8:30 AM EST Hospital Encounter Main [place] [phone] Rayshawn Suresh MD [facility] [place] [address] 06/04/2024 8:30 AM EST - 06/04/2024 1:05 PM EST Surgery [place] [phone] Rayshawn Suresh MD [facility] [place] [address] @THORACOSCOPY, SURG; W PLEURODESIS (WRVU 10.83) Scheduled Procedures Name Priority Associated Diagnoses Date/Ti me @THORACOSCOPY, SURG; W PLEURODESIS (WRVU 10.83) metastatic pleural effusion 06/04/2024 8:30 AM EST BRONCHOSCOPY, DIAGNOSTIC (WRVU 2.53) metastatic pleural effusion 06/04/2024 8:30 AM EST DIONNA\ALMA.CATHETER,TUNNELED, WITH SQ PORT OR PUMP OVER 5YR (WRVU 5.79) metastatic pleural effusion 06/04/2024 8:30 AM EST documented as of this encounter Results * XR Chest PA & Lateral (Generic) (05/27/2024 10:08 AM EST) WORKSTATION ID RADDRIMAGE DH RAD Anatomical Region Laterality Modality Chest N/A Digital Radiogra phy Impressions 05/27/2024 3:55 PM EST Interval decrease in size of the persistent right-sided pleural base opacity, likely some combination of pleural fluid and atelectasis. Pneumonia cannot be excluded. Thank you for letting us participate in the care of this patient. ??If you are a health care provider and have any questions regarding this report, please contact the number below. ??For patients who have questions please contact the health career information specialist that requested your imaging first. ? Narrative 05/27/2024 3:55 PM EST EXAMINATION: XR CHEST PA AND LATERAL (GENERIC) CLINICAL HISTORY: s/p thoracentesis; follow up right effusion C34.91, Malignant neoplasm of unspecified part of right bronchus or lung - J91.0, Malignant pleural effusion TECHNIQUE: PA and lateral views of the chest COMPARISON: May 20, 2024 FINDINGS: Interval decrease in size of the persistent right pulmonary base opacity. The left lung remains clear. The heart is not enlarged. Procedure Note Phani Ramos MD - 05/27/2024 EXAMINATION: XR CHEST PA AND LATERAL (GENERIC) CLINICAL HISTORY: s/p thoracentesis; follow up right effusion C34.91, Malignant neoplasm of unspecified part of right bronchus or lung- J91.0, Malignant pleural effusion TECHNIQUE: PA and lateral views of the chest COMPARISON: May 20, 2024 FINDINGS: Interval decrease in size of the persistent right pulmonary base opacity.The left lung remains clear. The heart is not enlarged. IMPRESSION Interval decrease in size of the persistent right-sided pleural baseopacity, likely some combination of pleural fluid and atelectasis. Pneumonia cannotbe excluded. Thank you for letting us participate in the care of this patient. If youare a health care provider and have any questions regarding this report,please contact the number below. For patients who have questions please contactthe health career information specialist that requested your imaging first. Rayshawn Suresh MD IMG DX ORDERABLES documented in this encounter Visit Diagnoses Diagnosis Adenocarcinoma, lung, right Pleural effusion, malignant Malignant pleural effusion Adenocarcinoma, lung, right Pleural effusion, malignant Malignant pleural effusion documented in this encounter Care Teams Resistance Brazer Relationship Specialty Start Date End Date Jose Angel Hopkins MD [address] [place] [address] [place] [address] PCP - General Family Medicine 04/08/24 documented as of this encounter
--- OUTSIDE RECORDS SUMMARY | 2024-05-31 01:19 | XMS_ITS | Encounter Summary ---
Author Organization [facility] Address [address] [place] [address] Care Team Providers Care Crystal Cutter Name Role Phone Unavailable Primary Care Provider Unavailabl e Encounter Details Date Type Department Care Team (Late st Contact Info) Description 01/24/2020 Lab Requisition [facility] Pathology & Laboratory Medicine - [facility] [address] [place] [address] Outr Resulting Lab, Provider Social History Tobacco Use Types Packs/Day Years Used Date Smoking Tobacco: Never Assessed Sex and Gender Information Value Date Recorded Sex Assigned at Not on file Legal Sex Male 11:32 EDT Gender Identity Not on file Sexual Orientation Not on file documented as of this encounter Plan of Treatment Not on file documented as of this encounter Procedures Procedure Name Priority Date/Time Associated Diagnosis Comments DO NOT ORDER STANDALONE - BROAD COVID TEST Today 01/24/2020 10:27 EDT COVID-19 TESTING Routine 01/24/2020 10:2 7 EDT documented in this encounter Results * DO NOT ORDER STANDALONE - BROAD COVID TEST (01/24/2020 10:27 EDT) COVID-19 rt-PCR Result NEGATIVE Negative 01/25/2020 16:54 EDT [facility] Comment: 2019-novel Coronavirus (2019-nCoV) not detected by the qRT-PCR assay. Consider testing for other respiratory viruses or re-collecting for 2019-nCoV testing. Note: Optimum timing for peak viral levels during infections caused by 2019-nCoV have not been determined. Collection of multiple specimens from the same patient may be necessary to detect the virus. Limitations Positive results are indicative of active infection with SARS-CoV-2 but do not rule out bacterial infection or co-infection with other viruses. The agent detected may not be the definite cause of disease. In addition, detection of viral RNA may not indicate the presence of infectious virus or that SARS-CoV-2 is the causative agent for clinical symptoms. Negative results do not preclude SARS-CoV-2 infection and should not be used as the sole basis for patient management decisions. Negative results must be combined with clinical observations, patient history, and epidemiological information. False negative results may also occur if amplification inhibitors are present in the specimen or if inadequate numbers of organisms are present in the specimen. Optimum specimen types and timing for peak viral levels during infections caused by SARS-CoV-2 have not been fully determined. Collection of multiple specimens (types and time points) from the same patient may be necessary to detect the virus. The test was validated for use with upper respiratory specimens obtained via nasopharyngeal or oropharyngeal swabs in VTM, UTM, M4, M5, M6, saline, and MTM media. The performance of this test has not been established for other specimens. Specimens collected using other FDA recommended Specimen Collection Materials listed in the FDA COVID-19 [employer] communication (July 22, 2019) are processed with the caveat that they were not all validated for use with this test and the result must be interpreted in this context. Furthermore, a false negative results may occur if a specimen is improperly collected, transported or handled. If the virus mutates in the RT-PCR target region, SARS-CoV-2 may not be detected or may be detected less predictably. Inhibitors or other types of interference may produce a false negative result. An interference study evaluating the effect of common cold medications was not performed. This test is not FDA-cleared but its performance characteristics were established by our CLIA-certified, CAP-accredited, high complexity laboratory in accordance with CLIA regulations, [employer] (CAP) guidelines (Jul 15, 2019), and FDA guidance (Jun 26, 2019). This test is only for use under the Food and Drug Administration's Emergency Use Authorization. Swab ENTIRE NASOPHARYNX / Unknown 01/24/2020 10:27 EDT 01/24/2020 22:58 EDT us Provider Outr Resulting Lab MICROBIOLOGY - GENER AL ORDERABLES Final Result [employer] [place], [place] * COVID-19 TESTING (01/24/2020 10:27 EDT) [facility] COVID-19 rt-PCR Result NEGATIVE Negative 01/25/2020 17:29 EDT [facility] Comment: 2019-novel Coronavirus (2019-nCoV) not detected by the qRT-PCR assay. Consider testing for other respiratory viruses or re-collecting for 2019-nCoV testing. Note: Optimum timing for peak viral levels during infections caused by 2019-nCoV have not been determined. Collection of multiple specimens from the same patient may be necessary to detect the virus. Limitations Positive results are indicative of active infection with SARS-CoV-2 but do not rule out bacterial infection or co-infection with other viruses. The agent detected may not be the definite cause of disease. In addition, detection of viral RNA may not indicate the presence of infectious virus or that SARS-CoV-2 is the causative agent for clinical symptoms. Negative results do not preclude SARS-CoV-2 infection and should not be used as the sole basis for patient management decisions. Negative results must be combined with clinical observations, patient history, and epidemiological information. False negative results may also occur if amplification inhibitors are present in the specimen or if inadequate numbers of organisms are present in the specimen. Optimum specimen types and timing for peak viral levels during infections caused by SARS-CoV-2 have not been fully determined. Collection of multiple specimens (types and time points) from the same patient may be necessary to detect the virus. The test was validated for use with upper respiratory specimens obtained via nasopharyngeal or oropharyngeal swabs in VTM, UTM, M4, M5, M6, saline, and MTM media. The performance of this test has not been established for other specimens. Specimens collected using other FDA recommended Specimen Collection Materials listed in the FDA COVID-19 [employer] communication (July 22, 2019) are processed with the caveat that they were not all validated for use with this test and the result must be interpreted in this context. Furthermore, a false negative results may occur if a specimen is improperly collected, transported or handled. If the virus mutates in the RT-PCR target region, SARS-CoV-2 may not be detected or may be detected less predictably. Inhibitors or other types of interference may produce a false negative result. An interference study evaluating the effect of common cold medications was not performed. This test is not FDA-cleared but its performance characteristics were established by our CLIA-certified, CAP-accredited, high complexity laboratory in accordance with CLIA regulations, [employer] (CAP) guidelines (Jul 15, 2019), and FDA guidance (Jun 26, 2019). This test is only for use under the Food and Drug Administration's Emergency Use Authorization. Performing Lab [facility] 01/25/2020 17:29 EDT [facility] Swab 01/24/2020 10:2 7 EDT 01/24/2020 22:58 EDT us Provider Outr Resulting Lab MICROBIOLOGY - GENER AL ORDERABLES Final Result [facility] [address] [place] [address] [facility] [place] documented in this encounter Visit Diagnoses Not on filedocumented in this encounter
--- OUTSIDE RECORDS SUMMARY | 2024-05-31 01:19 | XMS_ITS | Referral Summary ---
Author Organization [facility] Address [address] [place] [address] Care Team Providers Care Patient Coordinator Front Desk Name Role Phone Unavailable Primary Care Provider Unavailabl e Social History Tobacco Use Types Packs/Day Years Used Date Smoking Tobacco: Never Assessed Interpersonal Safety Answer Date Record ed Physically Hurt Never 03/21/2020 Verbally Threaten Not on file 03/21/2020 Sex and Gender Information Value Date Recorded Sex Assigned at Not on file Legal Sex Male 11:32 EDT Gender Identity Not on file Sexual Orientation Not on file Plan of Treatment Not on file
--- OUTSIDE RECORDS SUMMARY | 2024-05-31 01:19 | XMS_ITS | Encounter Summary ---
Author Organization [facility] [place] [address] Care Team Providers Care Chairman & Ceo Name Role Phone Jose Angel Hopkins MD Primary Care Provider [phone] Reason for Visit * Reason Comments Medication Refill Encounter Details Date Type Department Care Team (Late Contact Info) Description 05/26/2024 Refill Hematology [place] [address] Tej Tipton MD [facility]0 [facility] [place] [address] Social History Tobacco Use Types Packs/Day Years [...] AM EST Office Visit Hematology/Oncolog y at [address] [phone] Tej Tipton MD [address] [facility] HEMATOLOGY [place] [address] Stacy Valle APRN [facility] [place] [address] 06/01/2024 10:30 AM EST Scheduled View Only Radiation Oncology at [place] [phone] 06/01/2024 11:00 AM EST Office Visit Radiation Oncology at [place] [phone] Luis E Chin MD [facility] [place] [address] 06/04/2024 8:30 AM EST Hospital Encounter Main Operating Room [place] [phone] Rayshawn Suresh MD [facility] [place] [address] 06/04/2024 8:30 AM EST - 06/04/2024 1:05 PM EST Surgery Main Operating Room [place] [phone] Rayshawn Suresh MD [facility] [place] [address] @THORACOSCOPY, SURG; W PLEURODESIS (WRVU 10.83) Scheduled Procedures Name Priority Associated Diagnoses Date/Ti me @THORACOSCOPY, SURG; W PLEURODESIS (WRVU 10.83) metastatic pleural effusion 06/04/2024 8:30 AM EST BRONCHOSCOPY, DIAGNOSTIC (WRVU 2.53) metastatic pleural effusion 06/04/2024 8:30 AM EST DIONNA\ALMA.CATHETER,TUNNELED, WITH SQ PORT OR PUMP OVER 5YR (WRVU 5.79) metastatic pleural effusion 06/04/2024 8:30 AM EST documented as of this encounter Visit Diagnoses Not on filedocumented in this encounter Care Teams Chairman & Ceo Relationship Specialty Start Date End Date Jose Angel Hopkins MD [address] [place] [address] [place] [phone] PCP - General Family Medicine 12/12/24 documented as of this encounter
--- OUTSIDE RECORDS SUMMARY | 2024-05-31 01:19 | XMS_ITS | Clinical Summary ---
Author Organization [facility] Address [address] [place] [address] Care Team Providers Care Business Analyst Manager Name Role Phone Unavailable Primary Care Provider [...] Orientation Not on file Plan of Treatment Health Maintenance Due Date Last Done Comments Hepatitis C Screen 1981 Hepatitis B Vaccine (1 of 3 - 19+ 3-dose series) 2000 COVID-19 Vaccine (2023- season) 12/28/202311/2020, 07/07/2020
--- OUTSIDE RECORDS SUMMARY | 2024-05-31 01:19 | XMS_ITS | Encounter Summary ---
Author Organization [facility] [place] [address] Care Team Providers Care Distillery Worker General Name Role Phone Jose Angel Hopkins MD Primary Care Provider [phone] Encounter Details Date Type Department Care Team (Latest Contact Info) Description 05/24/2024 Travel Social History Tobacco Use Types Packs/Day Years [...] Encounters Date Type Department Care Team (Late st Contact Info) Description 05/31/2024 11:30 AM EST Office Visit Hematology/Oncolog y at [address] [phone] Tej Tipton MD [facility] DR HEMATOLOGY & [place] [address] Stacy Valle APRN [facility] [place] [address] 06/01/2024 10:30 AM EST Scheduled View Only [place] [phone] 06/01/2024 11:00 AM EST Office Visit [place] [phone] Luis E Chin MD [facility] [place] [address] 06/04/2024 8:30 AM EST Hospital Encounter [place] [phone] Rayshawn Suresh MD [facility] [place] [address] 06/04/2024 8:30 AM EST - 06/04/2024 1:05 PM EST Surgery [place] [phone] Rayshawn Suresh MD [facility] [place] [address] @THORACOSCOPY, SURG; W PLEURODESIS (WRVU 10.83) Scheduled [...] on filedocumented in this encounter Care Teams Distillery Worker General Relationship Specialty Start Date End Date Jose Angel Hopkins MD [address] [place] [address] [place] [phone] PCP - General Family Medicine 04/08/24 documented as of this encounter
--- OUTSIDE RECORDS SUMMARY | 2024-05-31 01:19 | XMS_ITS ---
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 Odynophagia, progressing to R otalgia, headache, trismus Summer 2019; large R tonsil non-ker SCCa extending to intrinsic tongue, pterygoids, FOM; nonpalable bilateral adenopathy B. 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) Rad Onc x x x x x x x x x x Screen for Need of Lung Ca Screening x Speech x PRN PRN x PRN Soc Work x PRN PRN PRN PRN PT PRN PRN PRN Nutrition x x x x x x x x x PRN G-tube x remove Dental Consult x Mediport x remove PET/CT x x PRN Labs-CBC, CMP, Mg x x x x x x x x PRN TSH x PRN 1 to 5 YEARS 12mo 15mo 18mo 21mo 24mo 2.5yrs 3yrs 3.5yrs 4yrs 4.5yrs 5yrs 04/19/21 07/18/21 10/18/21 01/18/22 04/19/22 10/18/22 04/19/23 10/19/23 04/19/24 10/18/24 04/19/25 COMPLETED TREATMENT Napoleon - MD x x x Napoleon - AP x Med Onc x x x Rad Onc x x x x Speech PRN Soc Work PRN PT PRN Nutrition PRN CT neck x Labs: CBC, CMP PRN PRN PRN PRN Labs:TSH x x x x PCP Lung imaging* x x x x PCP *Lung imaging: <10 pack-years: not needed >10 pack-years and high risk (age 55+, 30+ P-Y tobacco history within 15 years, willing/able to consider lung ca tx): consider ordering CT Chest Screening Lung Cancer. > 10 pack-years and intermediate risk (age 50+, 20+ P-Y, willing/able to consider lung ca tx): consider ordering Chest Xray PA/lateral. Over 5 YEARS: Alternate annual follow-up appointments between Akil AP and MD, beginning with AP at 6-year appt. Current Oncology Plans BCN AMB ONC NONSMALL CELL LUNG CANCER - CARBOplatin / PEMEtrexed / PEMBROLIZUMAB* Plan Start Date:05/10/2024 Plan Provider:Tej Tipton MD Linked Problems Adenocarcinoma, lung, right Treatment Medications Current Day (Day 1 , Cycle 2 - Planned for 05/31/2024) Next Day (Day 1, Cycle 3 - Planned for 06/21/2024) CARBOplatin (Paraplatin) in 150 mL infusionpembrolizumab (Keytruda) in sodium chloride 0.9% 100 mL infusionpembrolizumab (Keytruda) Recon SolnPEMEtrexed (Alimta) in sodium chloride 0.9% 100 mL infusionPEMEtrexed (Alimta) Recon Soln CARBOplatin (Paraplatin) in dextrose 5% 250 mL infusionpembrolizumab (Keytruda) 200 mg in sodium chloride 0.9% 108 mL infusionPEMEtrexed disodium (Alimta) 1,000 mg in sodium chloride 0.9% 140 mL infusion CARBOplatin (Paraplatin) in dextrose 5% 250 mL infusionpembrolizumab (Keytruda) 200 mg in sodium chloride 0.9% 108 mL infusionPEMEtrexed disodium (Alimta) 1,000 mg in sodium chloride 0.9% 140 mL infusion Past Plans ADULT TREATMENT Plan Name Start Date Discontinue Date Treatment Medications Discontinue Reason Plan Provider [facility] AMB ONC HEAD AND NECK CANCER - CISplatin WEEKLY / XRT 02/29/2020 09/07/2020 CISplatin (Platinol) in sodium chloride 0.9% 250 mL infusion Therapy Complete Gume Christy MD 1 of 1 cycle started Mediport Maintenance Plan Name Start Date Discontinue Date Treatment Medications Discontinue Reason Plan Provider MEDIPORT ADMINISTRATION 07/20/2020 11/19/2023 No medications scheduled. Therapy Complete - Radiation Treatments * No radiation treatments are documented for this patient in [facility]. Treatments may have been administered in another system. Resolved Problems Problem Noted Date Diagnosed Date Resolved Date Gastrostomy tube in place 02/28/2020 Overview (02/28/2020): Balloon-retained (5 mL inflation), 16 Fr, placed by [facility] 02/11/2020
--- OUTSIDE RECORDS SUMMARY | 2024-05-31 01:19 | XMS_ITS | Clinical Summary ---
Author Organization [facility] Address [facility] [place] [address] Care Team Providers Care Field Service Representative Name Role Phone Jose Angel Hopkins MD Primary Care Provider [phone] Allergies No known active allergies Medications Medication Sig Dispensed Refills Start Date End Date Status albuteroL 90 mcg/actuation HFA Aerosol Inhaler Inhale 2 puffs into the lungs every 4 hours as needed for Wheezing. Use with spacer Active amLODIPine-benazepr il (LOTREL) 5-10 mg Capsule Take 1 capsule by mouth daily as needed. Active Ibuprofen 200 mg Capsule Take 600 mg by mouth every 6 hours as needed. Active cyclobenzaprine (Flexeril) 10 mg tablet See Instructions, PRN as needed for muscle spasm, one po qhs prn spasm, # 20 tab, 0 Refill(s), Pharmacy: [id number] 10/14/2022 Active rosuvastatin (Crestor) 20 mg tablet Take 1 tablet by mouth Daily at Noon. 02/10/2024 Active venlafaxine XR (Effexor-XR) 75 mg ER 24 hr capsule Take 75 mg by mouth daily. Active folic acid (Vitamin B9) 1 mg tablet Take 1 tablet by mouth daily. 90 tablet 3 05/03/2024 Active levothyroxine (Synthroid) 100 mcg tabletIndications:A denocarcinoma of lung, right Take 1 tablet by mouth daily. 90 tablet 3 05/10/2024 Active prochlorperazine (Compazine) 10 mg tabletIndications:A denocarcinoma of lung, right Take 1 tablet by mouth every 6 hours as needed. 30 tablet 3 05/10/2024 Active doxycycline (Vibramycin) 100 mg capsule Take 100 mg by mouth 2 times daily. Active amoxicillin-clavula armando (Augmentin) 875-125 mg tablet Take 1 tablet by mouth 2 times daily. Active ciprofloxacin (Cipro) 500 mg tabletIndications:A denocarcinoma, lung, right Take 1 tablet by mouth 2 times daily. 20 tablet 05/17/2024 Active Additional Information Patient not taking.Reported on 05/27/2024 acetaminophen (Tylenol) 500 mg tablet Take 500 mg by mouth 3 times daily as needed for Pain. 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 Resolved Problems Problem Noted Date Diagnosed Date Resolved Date Gastrostomy tube in place 02/28/2020 Overview (02/28/2020): Balloon-retained (5 mL inflation), 16 Fr, placed by [facility] 02/11/2020 Encounters Date Type Department Care Team Description 05/27/2024 10:30 AM EST Office Visit [place] [address] Rayshawn Suresh MD Pleural effusion, malignant; Adenocarcinoma, lung, right 05/27/2024 9:48 AM EST - 05/27/2024 11:59 PM EST Hospital Encounter XRay at [address] [place] [address] Adenocarcinoma, lung, right; Pleural effusion, malignant Discharge Disposition: Home 05/27/2024 Travel 05/26/2024 Orders Only [place] [address] Rayshawn Suresh MD Adenocarcinoma, lung, right; Pleural effusion, malignant 05/26/2024 Refill Hematology [place] [address] Tej Tipton MD 05/24/2024 10:00 AM EST Office Visit Hematology/Oncolo gy at [address] [phone] Tej Tipton MD Burns, Kimberly A, APRN Adenocarcinoma, lung, right 05/24/2024 Travel 05/20/2024 9:50 AM EST - 05/20/2024 11:12 AM EST Surgery Gastroenterology at [place] [phone] Shashi Maynard MD THORACENTESIS, NEEDLE OR CATHETER; WITH IMAGE GUIDANCE (WRVU 2.27) 05/20/2024 8:40 AM EST - 05/20/2024 11:42 AM EST Hospital Encounter [place] [address] Shashi Maynard MD Discharge Disposition: Home 05/20/2024 Orders Only Hematology [place] [address] Rebekah Alanis, YOGIC Adenocarcinoma, lung, right; Tonsil cancer 05/19/2024 1:00 PM EST TH Visit (TeleHealth) Hematology [place] [address] Zeke, Rebekah M, LGC Adenocarcinoma, lung, right 05/19/2024 Telephone [place] [phone] Jenny Henry, RN Other (PleurX placement instructions) 05/18/2024 Telephone [place] [phone] PepStacy kirk 05/17/2024 2:00 PM EST Office Visit Hematology/Oncolo gy at [address] [phone] Tej Tipton MD Burns, Kimberly A, APRN Adenocarcinoma, lung, right 05/17/2024 Travel 05/16/2024 Ancillary Procedure Radiology Library [place] [phone] Shashi Maynard MD 05/16/2024 Telephone Hematology [place] [phone] John Bobby MD 05/14/2024 Telephone Hematology/Oncolo gy at [address] [phone] Macy Power, ARIK Shortness of Breath (SOB at rest and with ambulation) 05/13/2024 Telephone Hematology/Oncolo gy at [address] [phone] Margie Page, RN Shoulder Pain (left) 05/12/2024 Telephone Hematology/Oncolo gy at [address] [address] Dai Haley 05/11/2024 2:30 PM EST Infusion Hematology Oncology at [address] [address] Adenocarcinoma, lung, right 05/11/2024 Orders Only Hematology/Oncolo gy at [address] [phone] Stacy Valle APRN Adenocarcinoma, lung, right; Tonsil cancer 05/11/2024 Unscheduled Encounter Hematology/Oncolo gy at [address] [phone] Dionna Gardner RN Adenocarcinoma, lung, right 05/11/2024 Telephone Hematology/Oncolo gy at [address] [phone] Jessica Jaeger RN 05/11/2024 [place] [address] 05/10/2024 10:30 AM EST Infusion Hematology Oncology at [address] [place] [address] Adenocarcinoma, lung, right 05/10/2024 9:30 AM EST Office Visit Hematology/Oncolo gy at [address] [phone] Tej Tipton MD Burns, Kimberly A, CENTER HOLE REAMER Adenocarcinoma of lung, right; High risk medication use; Hypothyroidism, unspecified type 05/10/2024 Telephone Hematology/Oncolo gy at [address] [phone] Taniya Barajas RN Other (B12 at PCP office) 05/10/2024 Orders Only Hematology/Oncolo gy [place] [address] [place] [phone] Stacy Valle APRN 05/10/2024 Notes [place] [address] Michi Hernandez, PA 05/10/2024 Notes Only Hematology/Oncolo gy at [address] [place] [phone] Alyse Kirk, WATER MAIN INSTALLER HELPER 05/10/2024 Orders Only Hematology/Oncolo gy [place] [address] [place] [address] Tej Tipton MD 05/10/2024 Travel 05/05/2024 Orders Only Hematology [place] [address] Tej Tipton MD 05/04/2024 Telephone [place] [address] Anu Aviles Prior Authorization (Molecular cancer testing CPT 11882 is a covered benefit. ) 05/04/2024 Telephone Hematology/Oncolo gy at [address] [phone] Dai Haley 05/03/2024 3:00 PM EST Office Visit Hematology/Oncolo gy at [address] [address] Tej Tipton MD Burns, Kimberly A, APRN Adenocarcinoma of lung, right (Primary Dx); High risk medication use 05/03/2024 Travel 05/01/2024 7:07 AM EST - 05/01/2024 11:59 PM EST Hospital [place] [address] Stacy Valle APRN Adenocarcinoma of lung, right Discharge Disposition: Home 05/01/2024 Travel 04/26/2024 Telephone Hematology/Oncolo gy at [address] [phone] Taniya Barajas RN Other 04/23/2024 12:59 PM EST - 04/23/2024 11:59 PM EST Hospital Encounter [place] [address] Dominique Echavarria APRN Discharge Disposition: Home 04/23/2024 12:59 PM EST - 04/23/2024 11:59 PM EST Hospital Encounter [place] [address] Dominique Echavarria APRN Tonsil cancer Discharge Disposition: Home 04/23/2024 12:45 PM EST Laboratory Appointment Lab at [facility] [place]ematology Oncology [address] [place] [phone] History of oropharyngeal cancer; Adenocarcinoma of lung, right 04/23/2024 Notes Only Hematology and Oncology at [place] [phone] Jana Peter RN 04/23/2024 Travel 04/22/2024 Telephone Hematology/Oncolo gy at [address] [phone] Tej Tipton MD 04/22/2024 Orders Only Hematology/Oncolo gy at [address] [phone] Tej Tipton MD Adenocarcinoma of lung, right 04/19/2024 3:00 PM EST Office Visit Hematology/Oncolo gy at [address] [phone] Tej Tipton MD Burns, Kimberly A, CENTER HOLE REAMER Adenocarcinoma of lung, right 04/19/2024 Telephone Pulmonology at [place] [phone] Jigar Mccabe MD 04/19/2024 Travel 04/15/2024 9:45 AM EST Anesthesia Event Gastroenterology at [place] [phone] Donnie Herbert MD 04/15/2024 9:35 AM EST - 04/15/2024 10:45 AM EST Surgery Gastroenterology at [place] [phone] Jigar Mccabe MD BRONCHOSCOPY (FLEXIBLE OR RIGID) W\TRANSBRONC BX (WRVU 3.55) 04/15/2024 8:31 AM EST - 04/15/2024 12:05 PM EST Hospital Encounter Gastroenterology at [place] [phone] Jigar Mccabe MD Lung mass Discharge Disposition: Home 04/14/2024 Telephone Pulmonology at [place] [phone] Jenny Henry RN Other (Bronchoscopy instructions) 04/12/2024 2:30 PM EST Office Visit Hematology/Oncolo gy at [address] [phone] Tej Tipton MD Burns, Kimberly A, APRN History of oropharyngeal cancer 04/12/2024 Telephone Hematology/Oncolo gy at [address] [phone] Taniya Barajas, ARIK Other (Lab draw maxx dx) 04/12/2024 Travel 04/08/2024 1:00 PM EST Office Visit Otolaryngology at [place] [phone] Yrn Banuelos MD Tonsil cancer 04/08/2024 Travel 04/07/2024 11:30 AM EST Ancillary Procedure Radiology Library [place] [phone] Dominique Ehcavarria APRN Tonsil cancer 04/07/2024 Telephone Pulmonology at [place] [phone] Stacy Rodriguez 04/07/2024 Transcribe Orders eDH Incoming Referrals [phone] Jose Angel [place] MD Mass of right lung; Pleural effusion; Malignant tumor of tonsil 04/07/2024 Orders Only Hematology and Oncology at [place] [phone] Dominique Echavarria APRN Tonsil cancer; History of oropharyngeal cancer; Right lower lobe lung mass 04/06/2024 Orders [place] [address] Huyen Nash PA Mass of right lung 04/02/2024 6:40 PM EST Ancillary Procedure Radiology Library [place] [address] Mehran Martinez MD 04/02/2024 4:40 PM EST Ancillary Procedure Radiology Library [place] [address] Mehran Martinez MD 04/02/2024 Notes Only Radiology at [place] [address] Dae Richard MD 04/02/2024 Interpretation Only Radiology Library [place] [address] Mehran Martinez MD 04/02/2024 Interpretation Only Radiology Library at [facility] [place] [id number] Mehran Martinez MD 03/29/2024 1:50 PM EST Ancillary Procedure Radiology Library at [facility] [place] [id number] Mehran Martinez MD 03/29/2024 Interpretation Only Radiology Library at [facility] [place] [id number] Mehran Martinez MD 03/23/2024 3:00 PM EST Ancillary Procedure Radiology Library at [facility] [place] [id number] Mehran Martinez MD 03/23/2024 Interpretation Only Radiology Library [place] [address] Mehran Martinez MD from Last 3 Months Family History Medical History Relation Comments Myocardial Infarction Father No Known Problems Sister Relation Status Comments Father Sister Social History Tobacco Use Types Packs/Day Years Used Date Smoking Tobacco: Never Smokeless Tobacco: Never Alcohol Use Standard Drinks/Week Comments Not Currently 0 (1 standard drink = 0.6 oz pure alcohol) occasional, maybe once a month Sex and Gender Information Value Date Recorded Sex Assigned at Not on file Gender Identity Not on file Sexual Orientation Not on file Last Filed Vital Signs Vital Sign Reading Time Taken Comments Blood Pressure 125/80 05/27/2024 10:17 AM EST Pulse 67 05/27/2024 10:17 AM EST Temperature 36.2 ??C (97.1 ??F) 05/27/2024 10:[address] Respiratory Rate 17 05/27/2024 10:17 AM EST Oxygen Saturation 100% 05/27/2024 10:17 AM EST Inhaled Oxygen Concentration - - Weight 77.7 kg (171 lb 4.8 oz) 05/27/2024 10:17 AM EST Height 172.7 cm (5' 7.99) 05/27/2024 10:[address] Body Mass Index 26.05 05/27/2024 10:17 AM EST Plan of Treatment Upcoming Encounters Date Type Department Care Team (Late st Contact Info) Description 05/31/2024 11:30 AM EST Office Visit Hematology/Oncolog y at [address] [phone] Tej Tipton MD [address] [facility] [address] HEMATOLOGY [place] [address] Stacy Valle APRN [facility] [place] [address] 06/01/2024 10:30 AM EST Scheduled View Only [place] [address] 06/01/2024 11:00 AM EST Office Visit [place] [phone] Luis E Chin MD [facility] [place] [address] 06/04/2024 8:30 AM EST Hospital Encounter [place] [address] Rayshawn Suresh MD [facility] [place] [address] 06/04/2024 8:30 AM EST - 06/04/2024 1:05 PM EST Surgery [place] [phone] Rayshawn Suresh MD [facility] [place] [address] @THORACOSCOPY, SURG; W PLEURODESIS (WRVU 10.83) Scheduled Procedures Name Priority Associated Diagnoses Date/Ti me @THORACOSCOPY, SURG; W PLEURODESIS (WRVU 10.83) metastatic pleural effusion 06/04/2024 8:30 AM EST BRONCHOSCOPY, DIAGNOSTIC (WRVU 2.53) metastatic pleural effusion 06/04/2024 8:30 AM EST DIONNA\ALMA.CATHETER,TUNNELED, WITH SQ PORT OR PUMP OVER 5YR (WRVU 5.79) metastatic pleural effusion 06/04/2024 8:30 AM EST Health Maintenance Due Date Last Done Comments HIV screen 09/18/1999 Hepatitis C Screening 09/18/1999 Hepatitis B vaccine (0-59 yrs) (1) 2000 Tetanus/Diphtheria/Pertussis Vaccines (1 - Tdap) 2000 Diabetes Screening (HgbA1C o r Glucose) 07/21/2023 07/20/2020 Covid-19 Vaccine (4 - 2023-2 5 season) 2023 04/02/2021, 08/03/2020, 07/07/2020 Influenza (Flu) vaccine (1 o f 1 - Influenza standard series) 12/28/2023 Medical Devices Implanted Type Area Agricultural Equipment Test Engineer Device Identifier Shelf Expiration Date Model / Serial / Lot Devic,Pro,W-A [facility],Chrnflx, 8f ([id number])- Implanted:Qty : 1 on 02/11/2020 by Jose Angel Choi MD IMPLANTS Right: Chest Wall [employer] [place] 04/27/2024 [id number] / / [id number] Procedures Procedure Name Priority Date/Time Associated Diagnosis Comments XR CHEST PA AND LATERAL Routine 05/27/2024 10:08 AM EST Adenocarcinoma, lung, right Pleural effusion, malignant LAB SCAN 05/24/2024 12:00 AM EST XR CHEST ONE VIEW STAT 05/20/2024 11: 22 AM EST CYTOLOGY NON-FASHION SUPERVISOR Routine 05/20/2024 10:5 7 AM EST BODY FLUID CULTURE, AEROBIC Routine 05/20/2024 10:57 AM EST Thoracentesis Needle/Cath Pleura W Imaging ([id number]) 05/20/2024 10:24 AM EST Pleural effusion Malignant neoplasm of lung, unspecified laterality, unspecified part of lung LAB SCAN 05/17/2024 12:00 AM EST FILM LIBRARY STORAGE ONLY CT CHEST ABDOMEN PELVIS Routine 05/16/2024 12:00 AM EST LAB SCAN 05/16/2024 12:[address] SCAN (SCAN) 05/16/2024 12:00 AM EST DIAGNOSTIC RADIOLOGY SCAN 05/16/2024 12:00 AM EST ECG SCAN 05/14/2024 12:00 AM EST LAB SCAN 05/14/2024 12:00 AM EST LAB SCAN 05/14/2024 12:00 AM EST DIAGNOSTIC RADIOLOGY SCAN 05/14/2024 12:00 AM EST DIAGNOSTIC RADIOLOGY SCAN 05/14/2024 12:00 AM EST SURGICAL PATHOLOGY SCAN Routine 05/11/2024 8:49 AM EST LAB SCAN 05/10/2024 12:00 AM EST MRI BRAIN WWO CONTRAST (GENERIC) Routine 05/01/2024 8:05 AM EST Adenocarcinoma of lung, right NM PET CT STANDARD PLUS HEAD AND NECK STAT 04/23/2024 2:23 PM EST Tonsil cancer POC, GLUCOSE Routine 04/23/2024 1:11 PM EST LAB SCAN 04/19/2024 12:00 AM EST XR CHEST ONE VIEW STAT 04/15/2024 11: 16 AM EST SURGICAL PATHOLOGY Routine 04/15/2024 10 :25 AM EST Lung mass DH CANCERSEQ (RNA) Routine 04/15/2024 10 :25 AM EST Lung mass DH CANCERSEQ Routine 04/15/2024 10:25 AM EST Lung mass CYTOLOGY FNA OTHER THAN THYROID Routine 04/15/2024 10:23 AM EST CYTOLOGY FNA OTHER THAN THYROID Routine 04/15/2024 10:23 AM EST CYTOLOGY FNA OTHER THAN THYROID Routine 04/15/2024 10:23 AM EST CYTOLOGY FNA OTHER THAN THYROID Routine 04/15/2024 10:23 AM EST CYTOLOGY FNA OTHER THAN THYROID Routine 04/15/2024 10:23 AM EST CYTOLOGY FNA Routine 04/15/2024 10:23 AM EST CYTOLOGY FNA Routine 04/15/2024 10:23 AM EST CYTOLOGY FNA Routine 04/15/2024 10:23 AM EST CYTOLOGY FNA Routine 04/15/2024 10:23 AM EST CYTOLOGY FNA Routine 04/15/2024 10:23 AM EST Bronchoscopy, Biopsy ([id number]) 04/15/2024 9:46 AM EST Lung mass [facility] Ebus Guided Sampl 3/> Node Station/Strux ([id number]) 04/15/2024 9:46 AM EST Lung mass Bronchoscopy, Transbronch Biopsy ([id number]) 04/15/2024 9:46 AM EST Lung mass LAB SCAN 04/12/2024 12:00 AM EST REQUEST FOR 2ND READ CT CHEST Routine 04/07/2024 11:26 AM EST Tonsil cancer DIAGNOSTIC RADIOLOGY SCAN 04/07/2024 12:00 AM EST FILM LIBRARY STORAGE ONLY DX CHEST Routine 04/02/2024 6:38 PM EST FILM LIBRARY STORAGE ONLY CT CHEST Routine 04/02/2024 4:[address] SCAN (SCAN) 04/02/2024 12:00 AM EST DIAGNOSTIC RADIOLOGY SCAN 04/02/2024 12:00 AM EST FILM LIBRARY STORAGE ONLY DX CHEST Routine 03/29/2024 1:50 PM EST DIAGNOSTIC RADIOLOGY SCAN 03/29/2024 12:00 AM EST FILM LIBRARY STORAGE ONLY DX CHEST Routine 03/23/2024 3:00 PM EST COMPREHENSIVE METABOLIC PANEL Routine 07/20/2020 9:35 AM EDT Tonsil cancer from Last 3 Months or Most Recently Relevant to Health Maintenance Results * XR Chest PA & Lateral [...] who have questions please contact the health prompt care rn that requested your imaging first. ? Electronically signed by: Phani Ramos MD, [facility] ([phone]), at 05/27/2024 3:55 PM Narrative 05/27/2024 3:55 PM EST EXAMINATION: XR [...] patients who have questions please contactthe health prompt care rn that requested your imaging first. Electronically signed by: Phani Ramos MD, [facility]([phone]), at 05/27/2024 3:55 PM Rayshawn Suresh MD IMG DX ORDERABLES * Scan Doc: Lab (05/24/2024 12:00 AM EST) Only the most recent of8 resultswithin the time period is included. Narrative 05/24/2024 12:00 AM EST Ordered by an unspecified provider. Scanning Provider MEDIA MGR SCAN EXT O RDR/RSLT * XR Chest One View (05/20/2024 11:22 AM EST) Only the most recent of2 resultswithin the time period is included. [employer] WORKSTATION ID [id number] RAD Anatomical Region Laterality Modality Chest N/A Digital Radiogra phy Impressions 05/20/2024 11:50 AM EST 1. Small right pleural effusion. 2. Stable right lung base volume loss and right hilar and lower lobe opacity. Thank you for letting us participate in the care of this patient. ??If you are a health care provider and have any questions regarding this report, please contact the number below. ??For patients who have questions please contact the health prompt care rn that requested your imaging first. ? Narrative 05/20/2024 11:50 AM EST EXAMINATION: XR CHEST ONE VIEW CLINICAL HISTORY: NSCLC s/p R thoracentesis - evaluation for re-expansion of R lung post thora TECHNIQUE: A single AP portable upright radiograph the chest was obtained. COMPARISON: Comparison is made to multiple prior chest radiograph examinations, the most recent which is dated April 15, 2024. ??Correlation is made to CT of the chest dated April 02, 2024. FINDINGS: There is stable volume loss in the right lower lobe with a moderate right pleural effusion. ??The left lung is clear. ??There is no pleural effusion on the left. ??There is no pneumothorax bilaterally. The trachea is midline. ??Left hilar structures are within normal limits. ??There is increased soft tissue density in the right hilum, unchanged. Where visualized the cardiomediastinal contours are unchanged and within normal limits. Visualized structures within the superior abdomen and inferior neck are within normal limits. Osseous structures are within normal limits. Procedure Note Jigar Mustafa DO - 05/20/2024 EXAMINATION: XR CHEST ONE VIEW CLINICAL HISTORY: NSCLC s/p R thoracentesis - evaluation for re-expansionof R lung post thora TECHNIQUE: A single AP portable upright radiograph the chest wasobtained. COMPARISON: Comparison is made to multiple prior chest radiographexaminations, the most recent which is dated April 15, 2024. Correlation is made toCT of the chest dated April 02, 2024. FINDINGS: There is stable volume loss in the right lower lobe with a moderateright pleural effusion. The left lung is clear. There is no pleural effusionon the left. There is no pneumothorax bilaterally. The trachea is midline. Left hilar structures are within normal limits.There is increased soft tissue density in the right hilum, unchanged. Where visualized the cardiomediastinal contours are unchanged and withinnormal limits. Visualized structures within the superior abdomen and inferior neck arewithin normal limits. Osseous structures are within normal limits. IMPRESSION 1. Small right pleural effusion. 2. Stable right lung base volume loss and right hilar and lower lobeopacity. Thank you for letting us participate in the care of this patient. If youare a health care provider and have any questions regarding this report,please contact the number below. For patients who have questions please contactthe health prompt care rn that requested your imaging first. Electronically signed by: Jigar Mustafa DO, [facility]([phone]), at 05/20/2024 11:50 AM Shashi Maynard MD IMG DX ORDERABLES * (ABNORMAL) Cytology Non-FASHION SUPERVISOR (05/20/2024 10:57 AM EST) Case Report Medical Cytology Report ? Case: [id number] ? Authorizing Provider: ??Shashi Maynard MD ? Collected: ? 05/20/2024 1057 ? Ordering Location: ? [facility]ology at [facility] ?? Received: ?05/20/2024 1232 ? Pathologist: ? Maximus Romeo MD ? Specimen: ?Pleural Fluid, Right ? 05/26/2024 2:23 PM [facility] Specimen Source Pleural Fluid, Right 05/26/2024 2:23 PM EST [facility] Final Diagnosis Positive for malignancy 05/26/2024 2:23 PM [facility] Diagnosis Discussion Compatible with metastatic adenocarcinoma. Recommend clinical correlation. (Cell block and an additional level were examined.) 05/26/2024 2:23 PM [facility] Specimen Adequacy Satisfactory for evaluation. 05/26/2024 2:23 PM [facility] Additional Studies Task ID IHC/Special Stains Result A2-2 TTF1 Negative A2-3 Calretinin Negative A2-5 CEA [place] Positive A2-6 Mucicarmine Stain Positive 05/26/2024 2:23 PM [facility] Disclaimer(s) Formalin-fixed, paraffin-embedded tissue sections are studied using the polymer technique with appropriate positive and negative controls. These IHC studies provide the pathologist with adjunctive diagnostic information. Antibody specificity has been verified by testing antibodies on a series of in-house tissues with known immunohistochemical performance characteristics. The clinical interpretation of any antibody positive staining or its absence is evaluated within the context of clinical presentation, morphology, histopathological criteria and other diagnostic tests. 05/26/2024 2:23 PM [facility] Clinical Information History of NSCLC 05/26/2024 2:23 PM [facility] Gross Description Received fresh, approximately 70 mL total volume of cloudy, red fluid with clots. Total preparation: ThinPrep: 1 and Cell Block: 1. 05/26/2024 2:23 PM [facility] Result Note THIS RESULT REQUIRES PHYSICIAN/ROHIT FOLLOW UP(A) 05/26/2024 2:23 PM [facility] Body Fluid RIGHT PLEURAL FLUID / Unknown Non Blood Collection / Unknown 05/20/2024 10:57 AM EST 05/20/2024 12:32 PM EST Shashi Maynard MD PATHOLOGY/CYTOLOGY O RDERABLES [facility] [place] [address] * Body Fluid Culture, Aerobic Only (05/20/2024 10:57 AM EST) Body Fluid Culture No growth 05/24/2024 8:59 AM [facility] Gram Stain Cytocentrifuge Gram Stain performed 05/24/2024 8:59 AM [facility] Gram Stain Neutrophils seen 05/24/19 8:59 AM [facility] Gram Stain No microorganisms seen 05/24/2024 8:59 AM [facility] Body Fluid RIGHT PLEURAL FLUID / Unknown Non Blood Collection / Unknown 05/20/2024 10:57 AM EST 05/20/2024 12:32 PM EST Shashi Maynard MD MICROBIOLOGY - GENER AL ORDERABLES Performing Organization Address City/[facility] Co de Phone Number [facility] [place] [address] * Scan Doc: CT Scan (05/16/2024 12:00 AM EST) Only the most recent of2 resultswithin the time period is included. Anatomical Region Laterality Modality Other Narrative 05/16/2024 12:00 AM EST Ordered by an unspecified provider. Scanning Provider MEDIA MGR SCAN EXT O RDR/RSLT * Scan Doc: Diagnostic Radiology (05/16/2024 12:00 AM EST) Only the most recent of6 resultswithin the time period is included. Anatomical Region Laterality Modality Other Narrative 05/16/2024 12:00 AM EST Ordered by an unspecified provider. Scanning Provider MEDIA MGR SCAN EXT O RDR/RSLT * Film Library- Storage Only CT Chest Abdomen Pelvis (05/16/2024 12:00 AM EST) Narrative [facility] - 05/20/2024 7:28 AM EST This exam is auto-finalizing. It's purpose is for storage only. Shashi Maynard MD IMG FILM LIBRARY ORD ERABLES Performing Organization Address [facility] de Phone Number [place], [place] * Scan Doc: ECG (05/14/2024 12:00 AM EST) Narrative 05/14/2024 12:00 AM EST Ordered by an unspecified provider. Scanning Provider MEDIA MGR SCAN EXT O RDR/RSLT * Scan Doc: Surgical Pathology (05/11/2024 8:49 AM EST) Historical Provider MEDIA MGR SCAN EX T ORDR/RSLT * MRI Brain wwo Contrast (Generic) (05/01/2024 8:05 AM EST) WORKSTATION ID [id number] RAD Anatomical Region Laterality Modality Head Magnetic Resonan ce Impressions 05/01/2024 1:12 PM EST 4 enhancing intra-axial metastases identified, largest 0.8 cm in the left temporal lobe. Thank you for letting us participate in the care of this patient. ??If you are a health care provider and have any questions regarding this report, please contact the number below. ??For patients who have questions please contact the health prompt care rn that requested your imaging first. ? 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 COMPARISON: None FINDINGS: Round, enhancing metastasis in the posterior left temporal lobe measures 0.8 cm and is associated with surrounding vasogenic edema. Additional punctate foci of enhancement in the central right and superior left cerebellar hemispheres. Punctate focus of enhancement in the left postcentral gyrus. No restricted diffusion in the brain. No extra axial fluid collection, mass, mass effect, or intracranial hemorrhage. Normal caliber of the ventricles, sulci and cisterns. Normal configuration of the midline structures and cerebellar tonsils. The proximal intracranial arterial T2 flow-voids are normal. No abnormal signal in the mastoid air cells or paranasal sinuses. Unremarkable calvarial marrow signal. Normal orbits. 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 COMPARISON: None FINDINGS: Round, enhancing metastasis in the posterior left temporal lobe measures0.8 cm and is associated with surrounding vasogenic edema. Additional punctatefoci of enhancement in the central right and superior left cerebellarhemispheres. Punctate focus of enhancement in the left postcentral gyrus. No restricted diffusion in the brain. No extra axial fluid collection,mass, mass effect, or intracranial hemorrhage. Normal caliber of the ventricles,sulci and cisterns. Normal configuration of the midline structures andcerebellar tonsils. The proximal intracranial arterial T2 flow-voids are normal. No abnormal signal in the mastoid air cells or paranasal sinuses.Unremarkable calvarial marrow signal. Normal orbits. IMPRESSION 4 enhancing intra-axial metastases identified, largest 0.8 cm in theleft temporal lobe. Thank you for letting us participate in the care of this patient. If youare a health care provider and have any questions regarding this report,please contact the number below. For patients who have questions please contactthe health prompt care rn that requested your imaging first. Electronically signed by: Mehran Martinez MD, [facility]([phone]), at 05/01/2024 1:12 PM Stacy Valle [facility] IMG MRI ORDERABLES * NM PET CT Standard Plus Head and Neck (04/23/2024 2:23 PM EST) WORKSTATION ID [id number] RAD Anatomical Region Laterality Modality Positron Emissio n Tomography (PET) Impressions 04/27/2024 2:37 PM EST 1. Large FDG avid conglomerate mass involving the right lower and right middle lobes, right hilum, and right subcarinal region, consistent with primary lung malignancy. 2. Metabolic active pleural metastases. ??Associated moderate right pleural effusion. 3. Metabolically active lymph node metastases involving the mediastinum, right hilum, right internal mammary, and right pericardial lymph nodes. 4. Metabolically active osseous metastasis of the left scapula and fourth rib. I have personally reviewed the image(s) and the resident's interpretation and agree with the findings, Jigar Mustafa DO at 04/27/2024 2:37 PM Thank you for letting us participate in the care of this patient. ??If you are a health care provider and have any questions regarding this report, please contact the number below. ??For patients who have questions please contact the health prompt care rn that requested your imaging first. ? Electronically signed by: Jigar Mustafa DO, [facility] ([phone]), at 04/27/2024 2:37 PM 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, Malignant neoplasm of tonsil, unspecified TECHNIQUE: Following IV injection of 76-gpjoud-9-deoxyglucose (FDG) a standard uptake of approximately 60 minutes, a noncontrast CT scan followed by a PET scan were acquired from the top of head to mid thighs. The noncontrast CT was used for anatomic localization and photon attenuation correction of the PET scan. Blood glucose level: 76 (mg/dL) FDG dose: 12 mCi COMPARISON: PET/CT 09/29/2020. CT chest 04/02/2024 FINDINGS: HEAD/NECK: Unchanged diffusely FDG avid thyroid gland. Mild focal increased metabolic activity within the left maxillary sinus, consistent with sinusitis. CHEST: Large diffusely FDG avid conglomerate mass which involves the right lower and right middle lobe with lobar collapse, the right hilum, and the right subcarinal region. There is more intense FDG signal located medially at the subcarinal region (axial image 163). There are multiple right-sided scattered FDG avid pleural nodules/pleural thickening (axial images 112, 119, 135, 142, 158, 164, and 181) as well as a moderate-sized right pleural effusion which surrounds the mass. FDG avid right mediastinal, subcarinal, right hilar, right internal mammary, right pericardial, and retrocrural adenopathy. The left lung is normal without pleural thickening/nodularity or adenopathy. ABDOMEN/PELVIS: Normal activity in all soft tissue regions. SKELETON/EXTREMITIES: FDG avid lesion with central lucency within the left scapula (axial image 143). FDG avid lesion within the left fourth rib (axial image 124). Procedure Note Jigar Mustafa, DO - 04/27/2024 EXAMINATION: [place] PET CT STANDARD PLUS HEAD AND NECK CLINICAL HISTORY: history of tonsil cancer and now new enlarging rightlower lobe lung mass with hilar adenopathy and right pleural effusion, assessingfor new malignancy C09.9, Malignant neoplasm of tonsil, unspecified TECHNIQUE: Following IV injection of 29-mmfngj-5-deoxyglucose (FDG) astandard uptake of approximately 60 minutes, a noncontrast CT scan followed by aPET scan were acquired from the top of head to mid thighs. The noncontrast CT wasused for anatomic localization and photon attenuation correction of the PETscan. Blood glucose level: 76 (mg/dL) FDG dose: 12 mCi COMPARISON: PET/CT 09/29/2020. CT chest 04/02/2024 FINDINGS: HEAD/NECK: Unchanged diffusely FDG avid thyroid gland. Mild focal increasedmetabolic activity within the left maxillary sinus, consistent with sinusitis. CHEST: Large diffusely FDG avid conglomerate mass which involves the right lowerand right middle lobe with lobar collapse, the right hilum, and the rightsubcarinal region. There is more intense FDG signal located medially at thesubcarinal region (axial image 163). There are multiple right-sided scattered FDG avid pleuralnodules/pleural thickening (axial images 112, 119, 135, 142, 158, 164, and 181) as well asa moderate-sized right pleural effusion which surrounds the mass. FDG avid right mediastinal, subcarinal, right hilar, right internalmammary, right pericardial, and retrocrural adenopathy. The left lung is normal without pleural thickening/nodularity oradenopathy. ABDOMEN/PELVIS: Normal activity in all soft tissue regions. SKELETON/EXTREMITIES: FDG avid lesion with central lucency within the left scapula (axial [id number]). FDG avid lesion within the left fourth rib (axial image 124). IMPRESSION 1. Large FDG avid conglomerate mass involving the right lower and rightmiddle lobes, right hilum, and right subcarinal region, consistent with primarylung malignancy. 2. Metabolic active pleural metastases. Associated moderate rightpleural effusion. 3. Metabolically active lymph node metastases involving the mediastinum,right hilum, right internal mammary, and right pericardial lymph nodes. 4. Metabolically active osseous metastasis of the left scapula and fourthrib. I have personally reviewed the image(s) and the resident's interpretationand agree with the findings, Jigar Mustafa DO at 04/27/2024 2:37 PM Thank you for letting us participate in the care of this patient. If youare a health care provider and have any questions regarding this report,please contact the number below. For patients who have questions please contactthe health prompt care rn that requested your imaging first. Electronically signed by: Jigar Mustafa DO, [facility]([phone]), at 04/27/2024 2:37 PM Dominique Echavarria APRN IMG PET ORDERABLE S * POC, GLUCOSE (04/23/2024 1:11 PM EST) [facility] Signature Glucometer, POC 76 65 - 199 mg/dL 04/23/2024 1:11 PM EST [facility] Comment:Supplemental ranges: <140 mg/dL before meals <180 mg/dL all other times of the day. Blood CAPILLARY BLOOD / Unknown 04/23/2024 1:11 PM EST 04/23/2024 1:11 PM EST Dominique Echavarria APRN POINT OF CARE JAMARCUS T ORDERABLES [facility] [place] [address] * CancerSeq (RNA) (04/15/2024 10:25 AM EST) NGS Report Status Resulted 05/04/2024 11:59 AM EST [facility] Tissue STRUCTURE OF LOWER LOBE OF RIGHT LUNG / Unknown 04/15/2024 10:25 AM EST 04/19/2024 5:24 PM EST Jigar Mccabe MD MOLECULAR ORDER ROCKY Performing Organization Address City/[facility] Co de Phone Number [facility] [place] [address] * (ABNORMAL) CancerSeq (04/15/2024 10:25 AM EST) NGS Report Status Abnormal(A ) 05/04/2024 11:59 AM EST [facility] Tissue STRUCTURE OF LOWER LOBE OF RIGHT LUNG / Unknown 04/15/2024 10:25 AM EST 04/19/2024 5:24 PM EST Jigar Mccabe MD MOLECULAR ORDER ROCKY Performing Organization Address [facility] Co de Phone Number [facility] [place] [address] * (ABNORMAL) Surgical Pathology (04/15/2024 10:25 AM EST) Case Report Surgical Pathology Report ? Case: [id number] ? Authorizing Provider: ??Jigar Mccabe MD Collected: ? 04/15/2024 1025 ? Ordering Location: ? [place] [facility] [place]: ?04/15/2024 1103 ? Pathologist: ? Analilia Barrett MD ? Specimens: ?? A) - Lung, Right Lower Lobe, right lower lobe endobronchial biopsy ? B) - Lung, Right Lower Lobe, right lower lobe transbronchial bx ? 4 2:36 PM [facility] Final Diagnosis A. Lung, right lower lobe, endobronchial biopsy: - Adenocarcinoma. B. Lung, right lower lobe, transbronchial biopsy: - Adenocarcinoma. 4 2:36 PM [facility] Discussion The tumor shows acinar/complex glandular and focal micropapillary patterns in the current biopsy as well as prominent signet ring cell features. The morphologic and immunophenotypic features are not specific for a site of origin but are compatible with a lung primary adenocarcinoma if other potential sites have been excluded clinically and radiographically. 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 4 2:36 PM [facility] Addendum Tumor Proportion Sco re (TPS): % Expression: < 1% (negative) Interpretation Table: PD-L1 assay (22C3 pharmDX) for Keytruda Tumor Proportion Score (TPS): <1% PD-L1 Negative >=1% PD-L1 Expression Immunohistochemical assay was performed on paraffin-embedded tissue sections fixed in 10% neutral buffered formalin for 6-72 hours using the polymer system technique with appropriate controls. The assay was performed according to the clinical pharmacist's instructions using Anti-PD-L1 (22C3, pharmDX) antibody. 4 2:36 PM [facility] Addendum electronically signed by Ruel Singh MD on 04/23/2024 at 2:36 PM Additional Studies Task ID IHC/Special Stains Result B1-2 TTF1 Negative B1-3 D2-40 Negative for lymphatic invasion B1-4 CD31 Negative for vascular invasion B1-5 CK7 Positive (diffuse) B1-6 CK20 Positive (patchy) B1-7 GATA3 Negative (focal/non-specific reactivity) B1-8 p40 Negative B1-9 CDX2 Negative PD-L1 immunohistochemistry and molecular panel (NGS) are pending. 2:36 PM [facility] Disclaimer(s) Formalin-fixed, paraffin-embedded tissue sections are studied using the polymer technique with appropriate positive and negative controls. These IHC studies provide the pathologist with adjunctive diagnostic information. Antibody specificity has been verified by testing antibodies on a series of in-house tissues with known immunohistochemical performance characteristics. The clinical interpretation of any antibody positive staining or its absence is evaluated within the context of clinical presentation, morphology, histopathological criteria and other diagnostic tests. 2:36 PM [facility] Clinical Information A. Lung, Right Lower Lobe, right lower lobe endobronchial biopsy Rule out malignancy 43 yo male hx Lung mass and Lymphadenopathy, tonsillar cancer B. Lung, Right Lower Lobe, right lower lobe transbronchial bx Rule out malignancy 43 yo male hx Lung mass and Lymphadenopathy, tonsillar mass 4 2:36 PM [facility] Gross Description A. Lung, Right Lower Lobe, right lower lobe endobronchial biopsy. A - Labeled/Fixative: Right lower lobe endobronchial biopsy, formalin. Quantity/Size: Fragments, ranging from 0.1 to 0.4 cm greatest dimension. Tissue Description: Soft, delicate michael-pink tissues. Sections/Processing: Submitted in toto in 1 cassette labeled A1. cmk B. Lung, Right Lower Lobe, right lower lobe transbronchial bx. B - Labeled/Fixative: Right lower lobe transbronchial BX, formalin. Quantity/Size: Fragments, ranging from 0.1 to 0.4 cm in greatest dimension. Tissue Description: Soft, delicate michael-pink tissues. Sections/Processing: Submitted in toto in 1 cassette labeled B1. cmk 4 2:36 PM EST [facility] Result Note THIS RESULT REQUIR ES PHYSICIAN/ROHIT FOLLOW UP(A) 4 2:36 PM EST [facility] Tissue STRUCTURE OF LOWER LOBE OF RIGHT LUNG / Unknown 04/15/2024 10:25 AM EST 04/15/2024 11:03 AM EST Comment:43 yo male hx Lung m ass and Lymphadenopathy, tonsillar cancer Tissue specimen (specimen) STRUCTURE OF LOWER LOBE OF RIGHT LUNG / Unknown 04/15/2024 10:25 AM EST 04/15/2024 11:03 AM EST Comment:43 yo male hx Lung m ass and Lymphadenopathy, tonsillar mass Jigar Mccabe MD PATHOLOGY/CYTOL OGY ORDERABLES [facility] [place] [address] * (ABNORMAL) Cytology FNA (04/15/2024 10:23 AM EST) Only the most recent of5 resultswithin the time period is included. Case Report Medical Cytology Report ? Case: [id number] ? Authorizing Provider: ??Jigar Mccabe MD Collected: ? 04/15/2024 1023 ? Ordering Location: ? [place] [facility] [place] Received: ?04/15/2024 1104 ? Pathologist: ? Robert Martinez MD ? Specimen: ?Lymph Node, Station 11R ? 04/19/2024 3:01 PM EST [facility] Specimen Source Lymph Node, Station 11R FNA 04/19/2024 3:01 PM EST [facility] Final Diagnosis Positive for malignancy 04/19/2024 3:01 PM [facility] Diagnosis Discussion Adenocarcinoma. Cell block was examined. 04/19/2024 3:01 PM [facility] Specimen Adequacy Satisfactory for evaluation. 04/19/2024 3:01 PM [facility] Clinical Information Lung mass and Lymphadenopathy, tonsillar mass 04/19/2024 3:01 PM EST [facility] Gross Description Received in formalin, approximately 25 mL total volume of cloudy, bloody fluid with clots. Total preparation: Cell Block: 1. 04/19/2024 3:01 PM [facility] Result Note THIS RESULT REQUIRES PHYSICIAN/ROHIT FOLLOW UP(A) 04/19/2024 3:01 PM EST [facility] Fine Needle Aspirate (Lymph Node, Station 11R) Non Blood Collection / Unknown 04/15/2024 10:23 AM EST 04/15/2024 11:04 AM EST Jigar Mccabe MD PATHOLOGY/CYTOL OGY ORDERABLES [facility] [place] [address] * Request For 2nd Read CT Chest (04/07/2024 11:26 AM EST) WORKSTATION ID [id number] RAD Anatomical Region Laterality Modality Chest SO Impressions 04/07/2024 1:40 PM EST Large right lower lobe mass with conglomerate extension into the right hilum and subcarinal region is concerning for primary or metastatic malignancy. Exact measurement is limited by adjacent airless lung due to any combination of atelectasis and/or infection. 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 Suspected lymph node metastases paracardial adjacent to the right hemidiaphragm. Possible additional small pulmonary metastatic and pleural metastatic lesion on the left. Thank you for letting us participate in the care of this patient. ??If you are a health care provider and have any questions regarding this report, please contact the number below. ??For patients who have questions please contact the health prompt care rn that requested your imaging first. ? Electronically signed by: Natalee Marquez MD, [facility] ([phone]), at 04/07/2024 1:40 PM Narrative 04/07/2024 1:40 PM EST EXAMINATION: REQUEST FOR 2ND READ CT CHEST CLINICAL HISTORY: history of tonsil cancer and now new enlarging right lower lobe lung mass with hilar adenopathy and right pleural effusion; Sending Institution ; Date of exam [id number]; I believe a reinterpretation of this exam may alter care of Patient. Yes C09.9, Malignant neoplasm of tonsil, unspecified TECHNIQUE: Outside contrast-enhanced CT of the chest 04/02/2024. COMPARISON: PET/CT 10/19/2020. FINDINGS: Pulmonary parenchyma: Large conglomerate mass extending through the medial aspect of the right lower lobe, the right hilum, and the subcarinal region with encasement of right lower lobe vessels and bronchi. 7 mm and sub-6 mm pulmonary nodule in the left lower lobe. Airways: Encasement of right lower lobe bronchi with narrowing and occlusions. Pleura: Small right pleural effusion. Diffuse pleural-based nodularity on the right as well as small pleural nodules on the left. Lymph nodes: Multiple prominent lymph nodes paracardial on the right at the level of the diaphragm. Heart and vasculature: Normal size of the heart. No pericardial effusion. Limited upper abdomen: No significant finding. Skeleton: No significant finding. Procedure Note Natalee Arellano MD - 04/07/2024 EXAMINATION: REQUEST FOR 2ND READ CT CHEST CLINICAL HISTORY: history of tonsil cancer and now new enlarging rightlower lobe lung mass with hilar adenopathy and right pleural effusion; Sending Institution ; Date of exam [id number]; I believe a reinterpretation of this exam may alter care of Patient. Yes C09.9, Malignant neoplasm of tonsil, unspecified TECHNIQUE: Outside contrast-enhanced CT of the chest 04/02/2024. COMPARISON: PET/CT 10/19/2020. FINDINGS: Pulmonary parenchyma: Large conglomerate mass extending through themedial aspect of the right lower lobe, the right hilum, and the subcarinal regionwith encasement of right lower lobe vessels and bronchi. 7 mm and sub-6 mm pulmonary nodule in the left lower lobe. Airways: Encasement of right lower lobe bronchi with narrowing andocclusions. Pleura: Small right pleural effusion. Diffuse pleural-based nodularity onthe right as well as small pleural nodules on the left. Lymph nodes: Multiple prominent lymph nodes paracardial on the right atthe level of the diaphragm. Heart and vasculature: Normal size of the heart. No pericardialeffusion. Limited upper abdomen: No significant finding. Skeleton: No significant finding. IMPRESSION Large right lower lobe mass with conglomerate extension into the righthilum and subcarinal region is concerning for primary or metastatic malignancy.Exact measurement is limited by adjacent airless lung due to any combinationof atelectasis and/or infection. 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 Suspected lymph node metastases paracardial adjacent tothe right hemidiaphragm. Possible additional small pulmonary metastatic and pleural metastaticlesion on the left. Thank you for letting us participate in the care of this patient. If youare a health care provider and have any questions regarding this report,please contact the number below. For patients who have questions please contactthe health prompt care rn that requested your imaging first. Electronically signed by: Natalee Marquez MD, [facility] ([phone]), at 04/07/2024 1:40 PM Dominique Echavarria APRN IMG OUTSIDE INTER PRETATION ORDERABLES * Film Library- Storage Only DX Chest (04/02/2024 6:38 PM EST) Only the most recent of3 resultswithin the time period is included. 04/02/2024 6:38 PM EST Narrative [facility] - 04/02/2024 6:38 PM EST This exam is auto-finalizing. It's purpose is for storage only. Mehran Martinez MD [facility] [facility] [place] FILM LIBRARY ORD ERABLES Performing Organization Address [facility] de Phone Number [place], [place] * Film Library- Storage Only CT Chest (04/02/2024 4:40 PM EST) 04/02/2024 6:40 PM EST Narrative [facility] - 04/02/2024 6:40 PM EST This exam is auto-finalizing. It's purpose is for storage only. Mehran Martinez MD [facility] FILM LIBRARY ORD ERABLES Performing Organization Address [facility] de Phone Number [place], [place] * Comprehensive metabolic panel (non-fasting) (07/20/2020 9:35 AM EDT) Glucose 93 65 - 199 mg/dL [facility] Comment:Diabetes: >=200 mg/d L plus symptoms Blood Urea Nitrogen 17 10 - 20 mg/dL [facility] Creatinine 1.07 0.80 - 1.50 mg/dL [facility] Sodium 137 135 - 145 mmol/L [facility] Potassium 4.1 3.5 - 5.0 mmol/L [facility] Comment: Please note: ??Patients with WBC >100,000 may have falsely elevated Potassium levels. ??For accurate Potassium quantification in these patients send serum separator tube (gold top) for subsequent determinations. ??Contact the Clinical Chemistry Laboratory if there are any questions. Chloride 103 98 - 107 mmol/L [facility] Carbon Dioxide 24 22 - 31 mmol/L [facility] Anion Gap 10 5 - 15 mmol/L [facility] Calcium 9.6 8.5 - 10.5 mg/dL [facility] Protein, Total 8.0 6.1 - 8.0 gm/dL [facility] Albumin 4.6 3.2 - 5.2 gm/dL [facility] Aspartate Aminotransferase 24 0 - 39 unit/L [facility] Alanine Aminotransferase 24 0 - 55 unit/L [facility] Alkaline Phosphatase 75 40 - 130 unit/L [facility] Bilirubin, Total 0.7 0.2 - 1.3 mg/dL [facility] Est Glomerular Filtration Rate 88 >=60 mL/min/1. 73 m?? [facility] Comment: This patient? s estimated glomerular filtration rate (eGFR) is between 88 mL/min/1.73 m2 (patients with less muscle mass per kg body weight) and 102 mL/min/1.73 m2 (patients with more muscle mass per kg body weight) as determined by the CKD-EPI equation. Assessment of eGFR is not appropriate when creatinine concentrations are rapidly changing. For clinical decisions where creatinine clearance will affect therapy, a 24-hour urine creatinine clearance may be advised. Assignment of CKD stage 1 - 5 for patients with an eGFR near the transition point between stages may be based on clinical assessment of muscle mass and symptoms in addition to eGFR. Blood specimen (specimen) 07/20/2020 9:35 AM EDT 07/20/2020 9:49 AM EDT Narrative Resulting Agency Comment Spec In Lab Dominique Echavarria APRN CHEMISTRY ORDERAB LES [facility] [place] [address] from Last 3 Months or Most Recently Relevant to Health Maintenance Advance Directives * Attempt Cardiopulmonary Resuscitation - Inpatient (Latest Code Status on File) Date Activated Date Inactivated Comments 08/10/2020 12:46 PM 08/11/2020 4:38 AM Question Answer Comments Code Status decision made by: Patient * Attempt Cardiopulmonary Resuscitation - Inpatient Date Activated Date Inactivated Comments 02/11/2020 1:09 PM 02/11/2020 7:16 PM Question Answer Comments Code Status decision made by: Patient * Full Code Date Activated Date Inactivated Comments 01/28/2020 1:07 PM 02/11/2020 10:44 AM Question Answer Comments Does patient have capacity to make decision: Yes Care Teams Field Service Representative Relationship Specialty Start Date End Date Jose Angel Hopkins MD [address] [place] [address] [place] [phone] PCP - General Family Medicine 04/08/24
--- OUTSIDE RECORDS SUMMARY | 2024-05-31 01:19 | XMS_ITS | Encounter Summary ---
Author Organization [facility] Address [facility] [place] [address] Care Team Providers Care Tow Motor Mechanic Name Role Phone Jose Angel Hopkins MD Primary Care Provider [phone] Encounter Details Date Type Department Care Team (Latest Contact Info) Description 05/27/2024 9:48 AM EST - 05/27/2024 11:59 PM EST Hospital Encounter XRay at [address] [place] [phone] Adenocarcinoma, lung, right; Pleural effusion, malignant Discharge Disposition: Home Social History Tobacco Use Types Packs/Day Years [...] on file documented as of this encounter Medications at Time of Discharge Medication Sig Dispensed Refills Start Date End Date lidocaine (Lidoderm) 5 % Adhesive Patch, Medicated APPLY ONE PATCH TOPICALLY TO THE SKIN DAILY DIRECTED, 12 HOURS ON AND THEN 12 HOURS OFF 30 patch 05/26/2024 acetaminophen (Tylenol) 500 mg tablet Take 500 mg by mouth 3 times daily as needed for Pain. doxycycline (Vibramycin) 100 mg capsule Take 100 mg by mouth 2 times daily. amoxicillin-clavulanate (Augmentin) 875-125 mg tablet Take 1 tablet by mouth 2 times daily. ciprofloxacin (Cipro) 500 mg tabletIndications:Adeno carcinoma, lung, right Take 1 tablet by mouth 2 times daily. 20 tablet 05/17/2024 levothyroxine (Synthroid) 100 mcg tabletIndications:Adeno carcinoma of lung, right Take 1 tablet by mouth daily. 90 tablet 3 05/10/2024 prochlorperazine (Compazine) 10 mg tabletIndications:Adeno carcinoma of lung, right Take 1 tablet by mouth every 6 hours as needed. 30 tablet 3 05/10/2024 folic acid (Vitamin B9) 1 mg tablet Take 1 tablet by mouth daily. 90 tablet 3 05/03/2024 rosuvastatin (Crestor) 20 mg tablet Take 1 tablet by mouth Daily at Noon. 02/10/2024 venlafaxine XR (Effexor-XR) 75 mg ER 24 hr capsule Take 75 mg by mouth daily. cyclobenzaprine (Flexeril) 10 mg tablet See Instructions, PRN as needed for muscle spasm, one po qhs prn spasm, # 20 tab, 0 Refill(s), Pharmacy: [id number] 10/14/2022 Ibuprofen 200 mg Capsule Take 600 mg by mouth every 6 hours as needed. amLODIPine-benazepril (LOTREL) 5-10 mg Capsule Take 1 capsule by mouth daily as needed. albuteroL 90 mcg/actuation HFA Aerosol Inhaler Inhale 2 puffs into the lungs every 4 hours as needed for Wheezing. Use with spacer documented as of this encounter Plan of Treatment Upcoming Encounters Date Type Department Care Team (Late st Contact Info) Description 05/31/2024 11:30 AM EST Office Visit Hematology/Oncolog y at [address] [phone] Tej Tipton MD [address] [facility] [address] HEMATOLOGY & [place] [address] Stacy Valle APRN [facility] [place] [address] 06/01/2024 10:30 AM EST Scheduled View [place] [phone] 06/01/2024 11:00 AM EST Office [place] [phone] Luis E Chin MD [facility] [place] [address] 06/04/2024 8:30 AM EST Hospital Encounter Main Operating Room [place] [phone] Rayshawn Suresh MD [facility] [place] [address] 06/04/2024 8:30 AM EST - 06/04/2024 1:05 PM EST Surgery [place] [phone] Rayshawn Suresh MD [facility] [place] [address] @THORACOSCOPY, SURG; W PLEURODESIS (WRVU 10.83) Scheduled Procedures Name Priority Associated Diagnoses Date/Ti me @THORACOSCOPY, SURG; W PLEURODESIS (WRVU 10.83) metastatic pleural effusion 06/04/2024 8:30 AM EST BRONCHOSCOPY, DIAGNOSTIC (WRVU 2.53) metastatic pleural effusion 06/04/2024 8:30 AM EST DIONNA\ALMA.CATHETER,TUNNELED, WITH SQ PORT OR PUMP OVER 5YR (WRVU 5.79) metastatic pleural effusion 06/04/2024 8:30 AM EST documented as of this encounter Procedures Procedure Name Priority Date/Time Associated Diagnosis Comments XR CHEST PA AND LATERAL Routine 05/27/2024 10:08 AM EST Adenocarcinoma, lung, right Pleural effusion, malignant documented in this encounter Results * XR Chest PA [...] who have questions please contact the health family day carer that requested your imaging first. ? Narrative [...] patients who have questions please contactthe health family day carer that requested your imaging first. Rayshawn Suresh MD IMG DX ORDERABLES documented in this encounter Visit Diagnoses Diagnosis Adenocarcinoma, lung, right Pleural effusion, malignant Malignant pleural effusion documented in this encounter Care Teams Tow Motor Mechanic Relationship Specialty Start Date End Date Jose Angel Hopkins MD [address] [place] [address] [place] [phone] PCP - General Family Medicine 04/08/24 documented as of this encounter
--- OUTSIDE RECORDS SUMMARY | 2024-05-31 01:19 | XMS_ITS | Encounter Summary ---
Author Organization [facility] [place] [address] Care Team Providers Care Show Horse Driver Name Role Phone Jose Angel Hopkins MD Primary Care Provider [phone] Encounter Details Date Type Department Care Team (Latest Contact Info) Description 05/27/2024 Travel Social History Tobacco Use Types Packs/Day [...] AM EST Office Visit Hematology/Oncolog y at [address] [phone] Tej Tipton MD [facility] [facility] [address] HEMATOLOGY & [place] [address] Stacy Valle APRN [facility] [place] [address] 06/01/2024 10:30 AM EST Scheduled View [place] [phone] 06/01/2024 11:00 AM EST Office Visit [place] [phone] Luis E Chin MD [facility] [place] [address] 06/04/2024 8:30 AM EST Hospital Encounter [place] [phone] Rayshawn Suresh MD [facility] [place] [address] 06/04/2024 8:30 AM EST - 06/04/2024 1:05 PM EST Surgery [place] [phone] Rayshawn Suresh MD [facility] [place] [address] @THORACOSCOPY, SURG; W PLEURODESIS (WRVU 10.83) Scheduled [...] on filedocumented in this encounter Care Teams Show Horse Driver Relationship Specialty Start Date End Date Jose Angel Hopkins MD [address] [place] [address] [place] [phone] PCP - General Family Medicine 04/08/24 documented as of this encounter
--- OUTSIDE RECORDS SUMMARY | 2024-05-31 01:19 | XMS_ITS | Encounter Summary ---
Author Organization [facility] Address [facility] [place] [address] Care Team Providers Care Cancer Program Coordinator Name Role Phone Jose Angel Hopkins MD Primary Care Provider [phone] Reason for Visit * Reason Comments Lung Cancer Encounter Details Date Type Department Care Team (Late st Contact Info) Description 05/27/2024 10:30 AM EST Office [place] [address] Rayshawn Suresh MD [facility] [place] [address] Pleural effusion, malignant; Adenocarcinoma, lung, right Social History Tobacco Use Types Packs/Day Years [...] on file documented as of this encounter Last Filed Vital Signs Vital Sign Reading [...] 172.7 cm (5' 7.99) 05/27/2024 10:17 AM Shay JOE Body Mass Index 26.05 05/27/2024 10:17 AM EST documented in this encounter Patient Instructions * Patient Instructions* Marta Ferreira, RN - 05/27/2024 10:30 AM EST Thank you for visiting Dr. Suresh in clinic 05/27/24 Dr. Suresh would like to schedule you for your Robot assisted Video Assisted Thoracoscopic Surgery (RVATS), Possible Pleurodesis, Possible Pleural Biopsy, Possible PleurX Catheter. Your procedure is scheduled for 06/04/24. You will receive a phone call from the OR nurses on 06/03/24 after 2pm through 6 pm. They will confirm your arrival time, review what medications to take and when to stop eating and drinking. Your procedure will occur in medical office receptionist area 4W. Please park in the parking garage and you will come into the medical center on level 4. Go straight, all the way to the end of the boyd, that is Same day surgery wooden desk also medical office receptionist area 4W. In RVATS or robot-assisted video-assisted thoracic surgery, the surgeon controls the camera, light source and surgical tools from a console, with the same degree of flexibility and dexterity as if they were held in the surgeon's hand. The tiny size of the instruments and the precision movement of the robotic arms allow the surgeon to operate in small and [id number] places in the chest cavity, and to move carefully around sensitive blood vessels, tissues and organs, enabling more difficult procedures to be performed with RVATS versus open surgery. Pleurodesis is a procedure that is designed to get the two layers of the lung lining (the pleura - (a thin layer of tissue that covers the lungs and lines the interior wall of the chest cavity) to stick together. This works to obliterate the space between the layers (the pleural cavity) so that fluid (water, blood, or pus) can no longer build up between the layers. Talc pleurodesis is a specific form of chemical pleurodesis. A pleural biopsy is a procedure to remove a sample of tissue from the pleura and then sent to the laboratory for testing. The pleura, is a 2 layer lining that surrounds the lungs. The PleurX catheter system is designed to allow drainage of fluid that has accumulated in the chest. A tunneled catheter is placed under the skin of the chest and secured in place with a suture. A PleurX catheter is beneficial for patients who suffer from frequent pleural effusions. This system allows patients to drain fluid from the comfort of their own home and reduces the need for frequent trips to the hospital or doctors office. Before your Surgery: PLEASE WASH WITH HIBICLENS SOAP included in this package. Please wash your chest, sides and back. You may shower either the night before or the morning of surgery and please place clean clothes on after your shower. Exercise: Daily aerobic exercise for at least 30 minutes will help improve your endurance and improve the breathing capacity of your lungs. This means that you are breathing hard, your heart is beating fast and that you are sweating. Examples of this include walking, biking, swimming, and using a treadmill or stationary bike. You will be expected to exercise after surgery as well. Incentive Spirometer: Place the Incentive spirometer in your mouth when you are ready to take a slow deep breath in through your mouth (sucking motion, DO NOT BLOW into the device). Use your incentive spirometer as you were shown in clinic: 6 times daily/10 breaths each time (total of at least 60 times in a day). It is a sucking motion when you take a slow deep breath in, DO NOT BLOW INTO THIS MACHINE Take a slow, deep breath in through your mouth. While the piston rises, the indicator on the right should move upwards. It should stay between the 2 arrows for 2 to 4 seconds with each breath. If theindicator does not stay between the arrows, you are breathing either too fast or too slowly. The incentive spirometer will help you expand your lungs and encourage you to breathe deeply and fully. You will use the incentive spirometer as part of your recovery process and to prevent complications such as pneumonia. Things to bring to your hospital stay. You may bring your cellphone, and plater printed circuit board panels, pajama pants and shirts, under garments, comfy clothes for the ride home (a button down shirt may be the easiest to put on), sneakers or slippers with rubber soles, any toiletries that you prefer over hospital supplied toothbrush, toothpaste, deodorant. Some things to expect during your surgery and while you are in the hospital: You will have a chest tube placed while you are in surgery. A Chest tube is a flexible tube that isused to drain blood, fluid and air from around your lungs after surgery. The tube enters your body between your ribs and goes into the space where the piece of lung was removed. The chest tube will come out a day after surgery, if there is no air leak in your lung. If there is an air leak, the chest tube will stay in until it stops. The nurse and doctor will be watching for the air leak to clear up regularly throughout the day. Post Surgery Instructions at home for bowel regimen: Bowel regimen while at home. Please obtain senna (Senokot) tablets, colace tablets, and Miralax powder. You will need to take senna once a day, colace three times a day and miralax once a day to keep your bowels moving. If you do not have a bowel movement in 2 days you will need to call the office as you will need to obtain either Milk of Magnesia (MOM), Magnesium Citrate, a Fleet's enema or glycerinsuppositories. If you are having diarrhea, then you may back off on the bowel medications. If you are taking narcotics, you need to continue the bowel medications while you are taking the narcotics. Post Surgery Instructions at home for pain medication: Example of what you will be taking for pain control after your surgery. Please make sure that you have Extra strength Tylenol (acetaminophen) and Motrin (ibuprofen) at home before you are discharged. Extra strength acetaminophen 1000 mg alternate with ibuprofen 200 mg (2-3 tabs) every 3 hours or take both medications together every 6 hours: ex. Schedule - Extra strength acetaminophen 1000 mg at 8am, Ibuprofen 200 mg (2-3 tabs) at 11 am, then Extra strength acetaminophen 1000 mg at 2 pm, then ibuprofen 200 mg (2- 3 tabs) at 5 pm. Do not exceed more than 4000 mg of Extra strength acetaminophen in 24 hour period. You may experience some numbness. This numbness can last a few days to a few weeks. This numbness may not be near your incisions, but you may experience this near your rib cage and like a bandlike numbness near your abdomen. Dr. Suresh' team will see you twice per day while you are in the hospital. Two weeks after you leave the hospital, you will be scheduled to see Dr. Suresh in his clinic and will also have a chestx-ray before you see him on this day. Please call the Thoracic Surgery nurse if you have any questions before or after your surgery at . documented in this encounter Progress Notes * Rayshawn Suresh MD - 05/27/2024 10:30 AM EST Today I saw Zen Pickering in clinic with our TENDERIZER TENDER, Jaguar Martinez. Please see my addendum to her note. Rayshawn Suresh MD 05/27/2024 documented in this encounter H&P Notes * Farzana Martinez APRN - 05/27/2024 10:30 AM EST Images from the original note were not included. Thoracic Surgery Attending Outpatient Consultation Note MD Farzana Jones APRN [place] [address] FAX: Referring Provider: Tej Tipton MD [facility] [place] & [place] [address] Reason for Consultation: Right malignant pleural effusion Today, 05/27/2024, we saw Mr. Pickering in the Thoracic Surgery Clinic at [facility] [place] [place] in consultation for a Right malignant pleural effusion at your request. His history was obtained from the patient. We have also reviewed his medical records and imaging prior to today's visit. As you know, Mr. Pickering is a 43y.o. 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 In January 2024 he reports worsening shortness of breath and a CT Chest was obtained on April 02, 2024 which notes a Right lower lobe mass. On 04/15/24 he underwent a bronchoscopy/EBUS biopsy which noted adenocarcinoma of the mass and lymph nodes 4R and 11R were also positive for malignancy. He was referred to interventional pulmonary who performed a thoracentesis (1.1L) on 05/20/24 and cytology was positivefor malignancy. He was referred to Thoracic Surgery for consideration of pleurX versus pleurodesis. We have personally reviewed the following scans and results that are part of the work up, including: CT Chest (04/02/24): PET/CT (04/23/24): 1. Large FDG avid conglomerate mass involving the right lower and right middle lobes, right hilum, and right subcarinal region, consistent with primary lung malignancy. 2. Metabolic active pleural metastases. Associated moderate right pleural effusion. 3. Metabolically active lymph node metastases involving the mediastinum, right hilum, right internal mammary, and right pericardial lymph nodes. 4. Metabolically active osseous metastasis of the left scapula and fourth rib. MRI Brain (05/01/24): Four enhancing intra-axial metastases identified, largest 0.8 cm in the left temporal lobe. He denies fevers, night sweats, weight loss, or chest pain on exertion. He feels his shortness of breath is improved since his last thoracentesis on 05/20/24. His ECOG performance status is 1 - Symptomatic but completely ambulatory. He is a never smoker, drinks alcohol less than once a month, and denies recreational drug use. A 14-point review of systems is otherwise negative, except where noted above. He has a past medical history of Asthma, Primary lung adenocarcinoma, right, Raynaud's disease, andTonsil cancer. He has a past surgical history that includes Laryngoscopy, Dirct, Op Scope, Biopsy (59995) (Bilateral, 01/05/2020); Removal Of Tonsils, 12+ Y/O (43497) (Left, 01/28/2020); IR Mediport Placement (02/11/2020); IR G-Tube Placement (02/11/2020); IR Mediport Removal (08/10/2020); Bronchoscopy, Transbronch Biopsy ([id number]) (N/A, 04/15/2024); [facility] Guided Sampl 3/> Node Station/Strux ([id number]) (N/A, 04/15/2024); Bronchoscopy, Biopsy ([id number]) (N/A, 04/15/2024); and Thoracentesis Needle/Cath Pleura W Imaging ([id number]) (N/A, 05/20/2024). He has a current medication list which includes the following prescription(s): lidocaine, acetaminophen, levothyroxine, prochlorperazine, folic acid, rosuvastatin, venlafaxine xr, cyclobenzaprine, ibuprofen, amlodipine-benazepril, albuterol, doxycycline, amoxicillin-clavulanate, and ciprofloxacin, and the following Facility-Administered Medications: lidocaine. He has No Known Allergies. His family history includes Myocardial Infarction in his father; No Known Problems in his sister. A review of his social history shows: Social History Tobacco Use Smoking status: Never Smokeless tobacco: Never Substance Use Topics Alcohol use: Not Currently Comment: occasional, maybe once a month On examination, Mr. Pickering is a well nourished, well-developed male. He is alert and oriented. Vital Signs: BP 125/80 (Patient Position: Sitting) Pulse 67 Temp 36.2 ??C (97.1 ??F) (Temporal) Resp 17 Ht 172.7 cm (5' 7.99) Wt 77.7 kg (171 lb 4.8 oz) SpO2 100% BMI 26.05 kg/m?? Body massindex is 26.05 kg/m??. His pulse is regular, breathing is unlabored and temperature is afebrile. Ingeneral he is in no acute distress. His pupils are reactive. His sclera are anicteric. He has no palpable cervical or supraclavicular adenopathy. The lung martin are clear to auscultation bilaterally, diminished in Right base. Heart rate and rhythm are normal, and there is no murmur. The abdomen issoft and nontender. No organs or masses are palpable. There is no peripheral edema, cyanosis, or clubbing of the extremities. Neurologic examination is grossly intact. Musculoskelatal exam is grosslyintact with 5/5 strength. His skin is non-jaundiced. In summary, Mr. Pickering is a 43 y.o. male with a malignant Right pleural effusion in the setting of Stage IV lung adenocarcinoma. We discussed the treatment options including surveillance, IR pleurX placement, and surgical pleurodesis versus pleurx. We have discussed with him the risks of a Bronchoscopy and Right VATs, possible pleurodesis, possible pleurx catheter placement, and concurrent right port placement for his systemic therapy. He understands the risks of bleeding, damage to surroundingstructures, a prolonged air leak, heart attack, arrhythmia, stroke and . He asked appropriate questions and would like to proceed. His procedure will be scheduled tentatively for 06/04/24. We will reach out to Dr. Tipton to informhim of the above and to hold his planned chemotherapy for 05/31/24 in [facility]. We will also cancel his scheduled IR port placement on 06/16/24. If he should have any further questions or concerns, he should feel free to contact us. This patient was seen and examined with Dr Suresh. Farzana Martinez APRN 05/27/[address] [facility] I have seen the patient and reviewed the TENDERIZER TENDER's above note and I agree with the details as written.I have personally reviewed the relevant imaging. The assessment and plan were formulated in discussion with me and I agree with them as documented. I had the above documented discussion with the patient and the associated counseling and medical decision making. I have edited the note as appropriate. I spent >55 minutes in the total care of this patient including review of records and imaging, [id number] consultation and counseling, interpretation of studies, discussion with his other physicians, coordination of care and documentation. Rayshawn Suresh MD 05/27/2024 documented in this encounter Plan of Treatment Upcoming Encounters Date Type Department Care Team (Late st Contact Info) Description 05/31/2024 11:30 AM EST Office Visit Hematology/Oncolog y at [address] [address] Tej Tipton MD [facility] HEMATOLOGY & [place] [address] Stacy Valle APRN [facility] [place] [address] 06/01/2024 10:30 AM EST Scheduled View [place] [address] 06/01/2024 11:00 AM EST Office [place] [phone] Luis E Chin MD [facility] [place] [address] 06/04/2024 8:30 AM EST Hospital Encounter [place] [phone] Rayshawn Suresh MD [facility] [place] [address] 06/04/2024 8:30 AM EST - 06/04/2024 1:05 PM EST Surgery [place] [address] Rayshawn Suresh MD [facility] [place] [address] @THORACOSCOPY, SURG; W PLEURODESIS (WRVU 10.83) Scheduled Orders Name Type Priority Associated Diagnoses Orde r Schedule SURGICAL CASE REQUEST NO POSTOP PAIN: @THORACOSCOPY, SURG; W PLEURODESIS (WRVU 10.83), BRONCHOSCOPY, DIAGNOSTIC (WRVU 2.53) Procedures Routine One Time for 1 Occurrences starting 05/27/2024 until 05/27/2024 Scheduled Procedures Name Priority Associated Diagnoses Date/Ti me @THORACOSCOPY, SURG; W PLEURODESIS (WRVU 10.83) metastatic pleural effusion 06/04/2024 8:30 AM EST BRONCHOSCOPY, DIAGNOSTIC (WRVU 2.53) metastatic pleural effusion 06/04/2024 8:30 AM EST DIONNA\ALMA.CATHETER,TUNNELED, WITH SQ PORT OR PUMP OVER 5YR (WRVU 5.79) metastatic pleural effusion 06/04/2024 8:30 AM EST documented as of this encounter Visit Diagnoses Diagnosis Pleural effusion, malignant Malignant pleural effusion Adenocarcinoma, lung, right documented in this encounter Care Teams Cancer Program Coordinator Relationship Specialty Start Date End Date Jose Angel Hopkins MD [address] [place] [address] [place] [address] PCP - General Family Medicine 04/08/24 documented as of this encounter
--- OUTSIDE RECORDS SUMMARY | 2024-05-31 01:19 | XMS_ITS | Encounter Summary ---
Author Organization [facility] [place] [address] Care Team Providers Care Industrial Spray Painter Name Role Phone Jose Angel Hopkins MD Primary Care Provider [phone] Encounter Details Date Type Department Care Team (Late st Contact Info) Description 05/24/2024 10:00 AM EST Office Visit Hematology/Oncology at [address] [phone] Tej Tipton MD [address] [facility] [address] HEMATOLOGY & [place] [address] St[place] Valle APRN [facility] [place] [address] Adenocarcinoma, lung, right Social History Tobacco Use [...] Sign Reading Time Taken Comments Blood Pressure 137/74 05/24/2024 10:08 AM EST Pulse 97 05/24/2024 10:08 AM EST Temperature 37.1 ??C (98.7 ??F) 05/24/2024 10:[address] Respiratory Rate 16 05/24/2024 10:08 AM EST Oxygen Saturation 99% 05/24/2024 10:08 AM EST Inhaled Oxygen Concentration - - Weight 78 kg (172 lb) 05/24/2024 10:08 AM EST Height 172.7 cm (5' 7.99) 05/24/2024 10:[address] Body Mass Index 26.16 05/24/2024 10:08 AM EST documented in this encounter Progress Notes * Tej Tipton MD - 05/24/2024 10:00 AM EST Oncology Outpatient Clinic Note Patient Referred by Dr Banuelos, ENT Service Reason for visit: F/u for treated H&N cancer 2019, f/u HILARIO, new onset of FRANKS, CP and new R lungmass, Bx proven adeno-ca 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; 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,cN2,cM0, 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]; s/p definitive chemo\radiation with weekly CDDP 40 mg/m2 2019 New onset dyspnea, CP and large R lower lung mass, 04/15/2024 RLL bx - adeno carcinoma;04/15/2024 RLL bx - adeno carcinoma; p53 mutation, consideration given to germline testing Oncologic Hx: 2020: Odynophagia, right otalgia, headache, trismus summer 2019; very large R tonsil nonkeratinizing SCC, extending to intrinsic to tongue, pterygoids, FOM, bilateral cervical adenopathy Treatment: Definitive chemoradiation (weekly cisplatin 40,g/m2) 02/29/2020 04/10/2020); course c/b RLL pneumonia 03/21/2020; completed 04/16cumulative cisplatin 280 mg/m2 New onset of dyspnea chest pain and imaging finding of her large dominant right lower lung mass; 04/15/2024 RLL bx - adeno carcinoma, 04/15/2024 RLL bx - adeno carcinoma 04/23/24: PET/CT -Large FDG avid conglomerate mass involving the right lower and right middle lobes, right hilum, and right subcarinal region, consistent with primary lung malignancy. -Metabolic active pleural metastases. Associated moderate right pleural effusion. -Metabolically active lymph node metastases involving the mediastinum, right hilum, right internal mammary, and right pericardial lymph nodes. -Metabolically active osseous metastasis of the left scapula and fourth rib. 05/01/24: MRI brain showed IMPRESSION: 4 enhancing intra-axial metastases identified, largest 0.8 cm in the left temporal lobe. 05/10/24: Carbo/premetrexed C1, W2. 05/16/2024, large right pleural effusion; s/p right outside thoracentesis 2.5 L, persistent dyspnea and right pleural effusion 05/20 [facility] Med consult: additional right thoracentesis, 1000 mL; consideration of IPC vs surgical pleurodesis HPI Mr Pickering is a 43 y.o. 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 Follow-up had been HILARIO. However, in January 2024, the patient developed worsening dyspnea for which she received treatment with 2 courses of antibiotics without improvement to be followed by presentation to the ED. An outside CT scan of the chest from 04/02/2024 demonstrated a large right lower lobe mass with conglomerate extension into the right hilum and subcarinal region concerning either forprimary lung cancer or metastatic disease. Noted was also a right- sided pleural effusion On 04/08/2024 patient was seen by Dr. Banuelos: An in office flexible laryngoscopy voice normal s/parea irradiated oropharynx and larynx, no concerning lesions in the OP, GENERAL PRODUCTION MANAGER or HP. CT scan from 04/02/[address] Tipton and demonstrated a large right lower lobe mass with conglomerate extension into the right hilum and subcarinal region concerning either for primary lung cancer or metastatic disease, also noted right-sided pleural effusion as well as what appears to be small volume metastatic disease to the contralateral left lung. 04/15/2024: Right lower lobe endobronchial and transbronchial biopsy: Adenocarcinoma Interval history 05/10/24: On May 14, 2024, the patient reported progressive dyspnea. At outside emergency room he was found to have her large right pleural effusion, compressed right lung. S/p right thoracentesis 2.5 cm with minimal relief. I reviewed presentation on May 16 with fever to 104, started on amoxicillin and oxacillin at outside institution; completing Patient presents today with mildly improved dyspnea but afebrile, on exam persistent right pleural effusion two thirds up PMH: Past Medical History: Diagnosis Date Asthma Raynaud's disease Tonsil cancer Social history: He is . Has 3 children. Family Hx: No family history on file. Physical exam: Patient Vitals for the past 24 hrs: Temp Pulse Resp BP SpO2 05/24/24 1008 37.1 ??C (98.7 ??F) 97 16 137/74 99 % No adenopathy Right lung a dullness flatness, decreased breath sounds two thirds up Left lung good air entry, no rales no rhonchi CV regular rhythm Imagin04/23/24: PET/Ct showed IMPRESSION 1. Large FDG avid conglomerate mass [...] of the left scapula and fourth rib. 05/01/24 MRI brain IMPRESSION 4 enhancing intra-axial metastases identified, largest 0.8 cm in the left temporal lobe. 05/16/24: Outside CT abdomen chest pelvis: Consolidation right lower lobe right hilar right lower lobe mass moderate size right malignant pleural effusion increased in size Labs: -05/24/24: WBC 3.4 hemoglobin 12.7 platelet count 322,000, sodium 140 creatinine 1.3 ALT 109 AST 67 alk phos 145 05/17/24: WBC 5.0, hemoglobin 13.5 platelet count 241,000; sodium 134 creatinine 1.2 liver function tests elevated AST 65 ALT 103 alk phos 143 05/10/24: WBC 7.56, Hgb 14.9, Hct 45.1, PLT 379, ANC 5.2. Na 141, K 4.7, Cl 105, Bun 21, Cr 1.4, Glucose 95, Ca 9.6, t bili 0.47, AST 67 (15-37) alk phos 118. TSH 10.14. 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 New onset dyspnea, CP and large R lower lung mass; 04/15/2024 RLL bx - adeno carcinoma, 04/15/2024 RLL bx - adeno carcinoma 3. PET CT 04/23/24 showed large R. Lung mass, pleural metastasis and R. Pleural effusion, LN mets to mediastinum, R. Hilum, R. Internal mammary and R. Pericardial LN. Osseous metastasis to L. Scapulaand 4th rib 4. MRI brain 05/02/24 showed 4 enhancing intra-axial metastases identified, largest 0.8 cm in the left temporal lobe. Referral sent to radiation therapy. 3. 05/10/24: carboplatin, premetrexed, pembrolizumab C1. Pembrolizumab held due to insurance authorization issues. This is a 43 y.o.male patient, never smoker with history treated with stage III, high risk, HPV positive head and neck cancer 1999. The patient was treated with standard a combined modality definitive radiation and concurrent, radiosensitizing chemotherapy with cisplatin total dose 280 mg/m2; initial f/u HILARIO. The patient presents since the summer with progressive dyspnea, dyspnea on exertion, chest tightness, nonresponse to 2 courses of antibiotics, treated with prednisone [address] radiographic findings of a large, right lower lobe mass lesion, conglomerate extending into the right hilum and subcarinal lesion with pleural effusion and imaging evidence for metastatic disease to the contralateral left lung. Above findings reviewed with the patient and patient . Bronchoscopy results from 04/15/2024 show adenocarcinoma in the right lower lobe on endobronchial and transbronchial biopsy. On IHC CK7 is positive, CK20 only patchy positive, TTF-1 is negative. NGS testing showed no targetable mutations. PET CT 04/23/24 showed large R. Lung mass, pleural metastasis and R. Pleural effusion, LN mets to mediastinum, R. Hilum, R. Internal mammary and R. Pericardial LN. Osseous metastasis to L. Scapula and 4th rib. MRI brain 05/02/24 showed 4 enhancing intra-axial metastases identified, largest 0.8 cm in the left temporal lobe. Referral sent to radiation therapy. Treatment recommended with carboplatin, premetrexed, pembrolizumab. Today Zen is seen for chemotherapy teach with his present. Today is carboplatin, pemetrexed, pembrolizumab C1. Pembrolizumab will be held due to issues with insurance authorization. We againreviewed Possible Side Effects include, but are not limited to: Carboplatin: The most common side effects include decrease in blood counts (decrease in white bloodcells, red blood cells and platelets resulting in increased risk of infection, anemia and bleeding), nausea and vomiting, taste changes, decreased appetite, constipation (or less likely diarrhea), fatigue. Less common side effects include infusion reaction, mouth sores, kidney dysfunction, electrolyte abnormalities, ringing in the ears or hearing loss. Pemetrexed: The most common potential side effects include: Decrease in blood counts (decrease in white blood cells, red blood cells and platelets, resulting in increased risk of infection, anemia and bleeding), nausea/vomiting, decreased appetite, constipation, fatigue. Less common side effects include rash, mouth sores, worsening kidney function. Pembrolizumab: The most common potential side effects are fatigue, decreased appetite, joint pain, itching, nausea, and anemia. It is important to be aware of the potential immune-mediated toxicities, including pneumonitis, colitis, hepatitis, rash, neuropathy, and endocrinopathies. Call immediately if any change in breathing, 3 or more loose or watery stools in 24 hrs (do not take imodium), rash, profound fatigue, headaches or vision changes. Prompt treatment may be required with high dose steroids. Reviewed findings from over this weekend when patient presented with worsening dyspnea, markedly increased right pleural effusion. S/p right pleurodesis 2.5 l, with minimal relief; repeat a thoracentesis 1000 cc 05/20/2024 #Venous access: order for port placement #CINV: Grade I; compazine PRN #Hypothyroidism: TSH 10.14. Levothyroxine increased to 100mcg daily. # Right pleural effusion, right lower lobe collapse, ongoing pulmonary medicine and thoracic surgery consultation; consideration given to IPC versus our surgical thoracentesis and pleurodesis #pain: Reduced acetaminophen Plan: F/u in 1 week, + tentative treatment with carboplatin pemetrexed and pembrolizumab labs prior to visit (CBC, CMP, T4 TSH) Consultation with thoracic surgery on May 27 Consultation at [facility] [place] May 26 Increased levothyroxine to 100mcg daily Continue folic acid daily Consultation at [facility] pending for May 26 ciprofloxacin 500 mg twice daily to outside prescription amoxicillin doxycycline, completing now Genetic testing given finding of p53 point mutation Tej Tipton MD 30 minutes were spent on date of visit, including non-face to face time. documented in this encounter Plan of Treatment Upcoming Encounters Date Type Department Care Team (Late st Contact Info) Description 05/31/2024 11:30 AM EST Office Visit Hematology/Oncolog y at [address] [phone] Tej Tipton MD [address] [facility] [address] HEMATOLOGY & [place] [address] St[place] Valle APRN [facility] [place] [address] 06/01/2024 10:30 AM EST Scheduled View Only [place] [address] 06/01/2024 11:00 AM EST Office Visit [place] [phone] Luis E Chin MD [facility] [place] [address] 06/04/2024 8:30 AM EST Hospital Encounter [place] [address] Rayshawn Suresh MD [facility] [place] [address] 06/04/2024 8:30 AM EST - 06/04/2024 1:05 PM EST [place] [address] Rayshawn Suresh MD [facility] [place] [address] @THORACOSCOPY, SURG; W PLEURODESIS (WRVU 10.83) Scheduled Procedures Name Priority Associated Diagnoses Date/Ti me @THORACOSCOPY, SURG; W PLEURODESIS (WRVU 10.83) metastatic pleural effusion 06/04/2024 8:30 AM EST BRONCHOSCOPY, DIAGNOSTIC (WRVU 2.53) metastatic pleural effusion 06/04/2024 8:30 AM EST DIONNA\ALMA.CATHETER,TUNNELED, WITH SQ PORT OR PUMP OVER 5YR (WRVU 5.79) metastatic pleural effusion 06/04/2024 8:30 AM EST documented as of this encounter Visit Diagnoses Diagnosis Adenocarcinoma, lung, right documented in this encounter Care Teams Industrial Spray Painter Relationship Specialty Start Date End Date Jose Angel Hopkins MD [address] [place] [address] [place] [phone] PCP - General Family Medicine 04/08/24 documented as of this encounter
--- OUTSIDE RECORDS SUMMARY | 2024-05-31 01:20 | XMS_ITS | Encounter Summary ---
Author Organization [facility] [place] [address] Care Team Providers Care Bacon Slicer Name Role Phone Jose Angel Hopkins MD Primary Care Provider [phone] Encounter Details Date Type Department Care Team (Latest Contact Info) Description 05/03/2024 Travel Social History Tobacco Use Types Packs/Day [...] AM EST Office Visit Hematology/Oncolog y at [address] [phone] Tej Tipton MD [facility] DR HEMATOLOGY & [place] [address] St[place] Valle APRN [facility] [place] [address] 06/01/2024 10:30 AM EST Scheduled View Only [place] [phone] 06/01/2024 11:00 AM EST Office Visit [place] [phone] Luis E Chin MD [facility] [place] [address] 06/04/2024 8:30 AM EST Hospital Encounter [place] [phone] Rayshawn Suresh MD [facility] [place] [address] 06/04/2024 8:30 AM EST - 06/04/2024 1:05 PM EST Surgery [place] [phone] Rayshawn Suresh MD [facility] DR [place] [address] @THORACOSCOPY, SURG; W PLEURODESIS (WRVU 10.83) Scheduled [...] on filedocumented in this encounter Care Teams Bacon Slicer Relationship Specialty Start Date End Date Jose Angel Hopkins MD [address] [place] [address] [place] [phone] PCP - General Family Medicine 04/08/24 documented as of this encounter
--- OUTSIDE RECORDS SUMMARY | 2024-05-31 01:20 | XMS_ITS | Encounter Summary ---
Author Organization [facility] [place] [address] Care Team Providers Care Car Mechanic Name Role Phone Jose Angel Hopkins MD Primary Care Provider [phone] Reason for Visit * Reason Onset Date Comments Other 05/10/2024 B12 at PCP offic e Encounter Details Date Type Department Care Team (Late Contact Info) Description 05/10/2024 Telephone Hematology/Oncology at [address] [phone] Taniya Barajas RN Other (B12 at PCP office) Social History Tobacco Use Types Packs/Day Years Used Date Smoking Tobacco: Never Smokeless Tobacco: Never Alcohol Use Standard Drinks/Week Comments Yes 1 (1 standard drink = 0.6 oz pur e alcohol) occaional Sex and Gender Information Value Date Recorded Sex Assigned at Not on file Gender Identity Not on file Sexual Orientation Not on file documented as of this encounter Miscellaneous Notes * Telephone Encounter - Taniya Barajas RN - 05/10/2024 4:29 PM EST Zen called stating he did not get B12 shot today. Per Dr. Tipton pt needs today or tomorrow. Pt would like to go to PCP office. Spoke with Estela ELISE at PCP office they can accommodate the pt and will call him to set up for today or tomorrow. The PCP office will send us documentation of B12 shot given. documented in this encounter Plan of Treatment Upcoming Encounters Date Type Department Care Team (Late Contact Info) Description 05/31/2024 11:30 AM EST Office Visit Hematology/Oncolog y at [address] [phone] Tej Tipton MD [address] [facility] HEMATOLOGY & [place] [address] St[place] Valle APRN [facility] [place] [address] 06/01/2024 10:30 AM EST Scheduled View [place] [phone] 06/01/2024 11:00 AM EST Office Visit [place] [address] Luis E Chin MD [facility] [place] [address] 06/04/2024 8:30 AM EST Hospital Encounter [place] [address] Rayshawn Suresh MD [facility] [place] [address] 06/04/2024 8:30 AM EST - 06/04/2024 1:05 PM EST [place] [address] Rayshawn Suresh MD [facility] [place] [address] @THORACOSCOPY, SURG; W PLEURODESIS (WRVU 10.83) Scheduled [...] on filedocumented in this encounter Care Teams Car Mechanic Relationship Specialty Start Date End Date Jose Angel Hopkins MD [address] [place] [address] [place] [phone] PCP - General Family Medicine 04/08/24 documented as of this encounter
--- OUTSIDE RECORDS SUMMARY | 2024-05-31 01:20 | XMS_ITS | Encounter Summary ---
[place] [address] Care Team Providers Care Oracle Financial Application Developer Name Role Phone Jose Angel Hopkins MD Primary Care Provider [phone] Reason for Visit * Reason Onset Date Comments Other 05/19/2024 PleurX placement instructions Encounter Details Date Type Department Care Team (Late st Contact Info) Description 05/19/2024 Telephone [place] [address] Jenny Henry RN Other (PleurX placement instructions) Social History Tobacco Use Types Packs/Day Years [...] encounter Miscellaneous Notes * Telephone Encounter - Jenny Henry RN - 05/19/2024 9:54 AM EST Made scheduled call to review instructions prior to interventional pulmonary procedure: [x] Informed patient of date, time, and location of procedure or pre-procedure imaging or tests as applicable. Scheduled Pleur-x placement on 05/20/2024 at 9:45 in Endo under IVCS with Dr. Maynard. Arrive at 4T at 8:45 to check in. Procedure is scheduled for 60 minutes. [x] Informed patient they must have pickup driver who accompanies them into and to drive pt home safelyafter the procedure. Cija, spouse -Masking is now optional if you do not have COVID/ pulmonary symptoms but masks will continue to still be available at all entrance locations and throughout the building. [x] Reviewed home oxygen or ventilation use: [x] Patient not on home ventilator or oxygen [] Patient is on home oxygen and/or ventilator (document amount and type of oxygen device): [x] Patient confirms they will bring necessary supplies for transport to and from [] Patient identifies this potential supply issue: Will document and contact their DME for assistance. [x] Medication review: Confirm any new medications since last seen in Pulmonary. Only need to review blood thinners, insulin and rescue inhaler. [] Patient has rescue inhaler (e.g., albuterol) and will bring to procedure [x] Anticoagulation and anti-platelet therapy reviewed: [x] No anticoagulation or anti-platelet therapy [] Patient will hold anticoagulation or anti-platelet therapy as directed (See IP job aid for standard instructions or MD note for special instructions) [x] Insulin use reviewed: [x] No insulin therapy [] Patient taking insulin: Instructed to take half of long acting dose, and NOT take short acting dose morning of procedure [x] Patient understands they are to take all other medications the day of procedure unless specifically addressed 5. [x] NPO instructions reviewed with patient: -Do not have anything to eat/ no solid food after midnight tonight. -Pt permitted to have any amount of clear liquids up to two hours before scheduled procedure. -Clear liquid allowed are: water, gera jorge luis, apple juice, black coffee or tea. Sugar or sugar substitutes are fine in coffee or tea, however pt not permitted to have any dairy products (or dairy substitutes) after midnight- No milk, cream, or creamers. -Okay to take small sips of water to take allowed medications within 2 hours of the procedure. -Failure to abide to these dietary instructions may result in cancellation of procedure. 6. [x] COVID screening [x] Patient denies current symptoms or exposures as per most recent COVID Screening Job Aid 7. Other questions addressed during this call: N/A VALARIE Kendrick, RN Pulmonary 5C Clinic Pager: [phone] documented in this encounter Plan of Treatment Upcoming Encounters Date Type Department Care Team (Late st Contact Info) Description 05/31/2024 11:30 AM EST Office Visit Hematology/Oncolog y at [address] [phone] Tej Tipton MD [address] [facility] HEMATOLOGY & [place] [address] [place] Valle APRN [facility] [place] [address] 06/01/2024 10:30 AM EST Scheduled View Only [place] [phone] 06/01/2024 11:00 AM EST Office Visit [place] [phone] Luis E Chin MD [facility] [place] [address] 06/04/2024 8:30 AM EST Hospital Encounter [place] [phone] Rayshawn Suresh MD [facility] [place] [address] 06/04/2024 8:30 AM EST - 06/04/2024 1:05 PM EST Surgery [place] [phone] Rayshawn Suresh MD [facility] [place] [address] @THORACOSCOPY, SURG; W PLEURODESIS (WRVU 10.83) Scheduled [...] on filedocumented in this encounter Care Teams Oracle Financial Application Developer Relationship Specialty Start Date End Date Jose Angel Hopkins MD [address] [place] [address] [place] [address] PCP - General Family Medicine 04/08/24 documented as of this encounter
--- OUTSIDE RECORDS SUMMARY | 2024-05-31 01:20 | XMS_ITS | Encounter Summary ---
Author Organization [facility] [place] [address] Care Team Providers Care Trust Administrator Name Role Phone Jose Angel Hopkins MD Primary Care Provider [phone] Encounter Details Date Type Department Care Team (Latest Contact Info) Description 05/10/2024 Travel Social History Tobacco Use Types Packs/Day [...] AM EST Office Visit Hematology/Oncolog y at [address] [phone] Tej Tipton MD [facility] [place] [facility] [address] HEMATOLOGY & [place] [address] Stacy Valle APRN [facility] [place] [address] 06/01/2024 10:30 AM EST Scheduled View [place] [phone] 06/01/2024 11:00 AM EST Office [place] [phone] Luis E Chin MD [facility] [place] [address] 06/04/2024 8:30 AM EST Hospital Encounter [place] [phone] Rayshawn Suresh MD [facility] [place] [address] 06/04/2024 8:30 AM EST - 06/04/2024 1:05 PM EST Surgery [place] [phone] Rayshawn Suresh MD [facility] [place] [address] @THORACOSCOPY, SURG; W PLEURODESIS (WRVU 10.83) Scheduled [...] on filedocumented in this encounter Care Teams Trust Administrator Relationship Specialty Start Date End Date Jose Angel Hopkins MD [address] [place] [address] [place] [phone] PCP - General Family Medicine 04/08/24 documented as of this encounter
--- OUTSIDE RECORDS SUMMARY | 2024-05-31 01:20 | XMS_ITS | Encounter Summary ---
Author Organization [facility] [place] [address] Care Team Providers Care Food Production Manager Name Role Phone Jose Angel Hopkins MD Primary Care Provider [phone] Reason for Visit * Auth/Cert (Routine) Specialty Diagnoses / Procedures Referred By Contac t Referred To Contact Diagnoses Pleural effusion Malignant neoplasm of lung, unspecified laterality, unspecified part of lung Lung cancer, pleural effusion/ Pleur-x placement/ IVCS/ Backer Procedures PRO INSERTION OF INDWELLING TUNNELED PLEURAL CATHETER INSERTION INDWELLING PLEURAL CATHETER W\CUFF (WRVU 3.92) Shashi Maynard MD [facility] [address] [facility] [[email or web address]] Referral ID Status Reason Start Date Expiration Date Visits Re quested Visits Authorized [id number] 1 1 Encounter Details Date Type Department Care Team (Late st Contact Info) Description 05/20/2024 9:50 AM EST - 05/20/2024 11:12 AM EST Surgery [place] [address] Shashi Maynard MD [facility] [address] THORACENTESIS, NEEDLE OR CATHETER; WITH IMAGE GUIDANCE (WRVU 2.27) Social History Tobacco Use Types Packs/Day Years [...] Sign Reading Time Taken Comments Blood Pressure 123/73 05/20/2024 11:05 AM EST Pulse 82 05/20/2024 10:50 AM EST Temperature - - Respiratory Rate 20 05/20/2024 8:59 AM EST Oxygen Saturation 97% 05/20/2024 11:05 AM EST Inhaled Oxygen Concentration - - Weight 75.8 kg (167 lb) 05/20/2024 8:59 AM EST Height 172.7 cm (5' 8) 05/20/2024 8:59 AM EST Body Mass Index 25.39 05/20/2024 8:59 AM EST documented in this encounter Discharge Instructions * Discharge Instructions* Judith Giron, RN - 05/20/2024 11:37 AM EST Bronchoscopy: What to Expect at Home Your Recovery Bronchoscopy lets your doctor look at your airway through a tube called a bronchoscope. Afterward, you may feel tired for 1 or 2 days. Your mouth may feel very dry for several hours after the procedure. You may also have a sore throat and a hoarse voice for a few days. Sucking on throat lozenges orgargling with warm salt water may help soothe your sore throat. If a sample of tissue (biopsy) was taken, you may spit up a small amount of blood or have bloody saliva. This is normal. This care sheet gives you a general idea about how long it will take for you to recover. But each person recovers at a different pace. Follow the steps below to get better as quickly as possible. How can you care for yourself at home? Activity Rest when you feel tired. Getting enough sleep will help you recover. Avoid strenuous activities, such as bicycle riding, jogging, weight lifting, or aerobic exercise, until your doctor says it is okay. Diet You can eat your normal diet. If your stomach is upset, try bland, low-fat foods like plain rice, broiled chicken, toast, and yogurt. If it is painful to swallow, start out with cold drinks, flavored ice pops, and ice cream. Next, try soft foods like pudding, yogurt, canned or cooked fruit, scrambled eggs, and mashed potatoes. Avoid eating hard or scratchy foods like chips or raw vegetables. Avoid orange or tomato juice and otheracidic foods that can sting the throat. Drink plenty of fluids to avoid becoming dehydrated (unless your doctor tells you not to). Medicines Take pain medicines exactly as directed. If the doctor gave you a prescription medicine for pain, take it as prescribed. If you are not taking a prescription pain medicine, ask your doctor if you can take an yoqc-fii-djanvot medicine. If you think your pain medicine is making you sick to your stomach: Take your medicine after meals (unless your doctor has told you not to). Ask your doctor for a different pain medicine. If your doctor prescribed antibiotics, take them as directed. Do not stop taking them just because you feel better. You need to take the full course of antibiotics. Follow-up care is a corrales part of your treatment and safety. Be sure to make and go to all appointments, and call your doctor if you are having problems. It's also a good idea to know your test resultsand keep a list of the medicines you take. When should you call for help? Call 911 anytime you think you may need emergency care. For example, call if: You passed out (lost consciousness). You have sudden chest pain and shortness of breath. You cough up large amounts of bright red blood. You have severe pain in your chest. You have severe trouble breathing. Call your doctor now or seek immediate medical care if: You cough up more than a few tablespoons of blood. You have pain that does not get better after you take pain medicine. You have a fever over 100??F. You still sound hoarse after a few days. You have bubbles under the skin around the collarbone. These may crackle and pop when you press on them. Watch closely for changes in your health, and be sure to contact your doctor if you have any problems. Where can you learn more? Visit our health information library at http://[employer]/tripJaneinfo. You can also view health information on [employer], your personal patient account. Log in or sign uptoday. Enter S288 in the search box to learn more about Bronchoscopy: What to Expect at Home. Current as of: October 04, 2018 Content Version: 12.2 ?? [id number] [employer]. Care instructions adapted under license by [facility]. If you have questions about a medical condition or this instruction, always ask your healthcare professional. [employer] disclaims any warranty or liability for your use of this information. documented in this encounter Medications at Time of Discharge Medication Sig Dispensed Refills Start Date End Date doxycycline (Vibramycin) 100 mg capsule Take 100 [...] spasm, # 20 tab, 0 Refill(s), [facility]acy: [phone] 10/14/2022 Ibuprofen 200 mg Capsule Take 600 mg by mouth every 6 hours as needed. amLODIPine-benazepril (LOTREL) 5-10 mg Capsule Take 1 capsule by mouth daily as needed. albuteroL 90 mcg/actuation HFA Aerosol Inhaler Inhale 2 puffs into the lungs every 4 hours as needed for Wheezing. Use with spacer lidocaine (Lidoderm) 5% Adhesive Patch, Medicated Apply 1 patch onto the skin daily. (leave on for 12 hours and remove for 12 hours) 30 patch 05/05/2024 05/26/2024 documented as of this encounter Progress Notes * Judith Giron RN - 05/20/2024 11:42 AM EST Patient alert and oriented, vital signs stable. Reviewed discharge instructions; patient and verbalized understanding. Copy of instruction sheet with contact numbers for questions/concerns. Painassessment documented. Patient escorted out of department via wheelchair with . documented in this encounter H&P Notes * Shashi Maynard MD - 05/19/2024 5:56 PM EST Interventional Pulmonology Pre-Procedure History & Physical SECTION OF PULMONARY/CRITICAL CARE MEDICIE Procedure: Indwelling pleural catheter (i.e., PleurX) under conscious sedation Reason for procedure: Pleural effusion See last note from Dr. Tipton PHYSICAL EXAM: To be reassessed pre-procedure Assessment & Plan: Consent to be signed Proceed with procedure as stated Shashi Maynard MD, 05/19/2024, 5:56 PM Interventional Pulmonology Section of Pulmonary & Critical Care Pager: [phone] documented in this encounter Procedure Notes * Shashi Maynard MD - 05/20/2024 10:32 AM ESTProcedure(s): PRO THORACENTESIS NEEDLE/CATH PLEURA W IMAGING Pre-Procedure Diagnose(s): Pleural effusion, malignant Post-Procedure Diagnose(s): Pleural effusion, malignant Images from the original note were not included. INTERVENTIONAL PULMONOLOGY PROCEDURE NOTE SECTION OF PULMONARY & CRITICAL CARE MEDICINE Patient Name: Zen Pickering Patient Patient : 1980 Procedure Date: 05/20/2024 Procedure(s): Thoracentesis with US guidance (right chest) Procedure Location: Endoscopy unit Indication: Pleural effusion Attending(s) of Record: Shashi Maynard MD Others Present: CCS Fellow Medications: Lidocaine 1% without Epi 14 mL subcutaneous Sedation Time: N/A Time Out: Performed The patient's medical record has been reviewed. The indication for the procedure was reviewed. The necessary history and physical examination was performed and reviewed. The risks, benefits and alternatives of the procedure were discussed with the patient in detail and he had the opportunity to askquestions. I discussed in particular the potential minor and major complications. All questions were answered to the best of my ability. Informed consent was obtained. The proposed procedure and the patient's identification were verified prior to the procedure by the physician and the nurse. After clinical evaluation and reviewing the indication, risks, alternatives, and benefits of the procedure the patient was deemed to be in satisfactory condition to undergo the procedure. Procedure Descriptions: Thoracentesis with Ultrasound Guidance (42078): The patient was placed in an upright seated position. An ultrasound examination of the right chest was performed and a moderate septated pleural effusion was identified; the RLL is consolidated and there is thickening of the parietal pleura. The diaphragm, heart and lung tissue were clearly visualized. An appropriate site for pleural access was marked on the superior surface of the rib; the site was cleaned and draped in usual sterile fashion. 14 mL of 1% Lidocaine were used for local anesthesia. A 4 mm incision was made and an 8F thoracentesis catheter over 18 gauge needle was inserted into the right pleural space without difficulty. A total of 1,100 mL of serosanguinous pleural fluid was removed without difficulty. Drainage was discontinued after the development of chest discomfort. Fluid was sent for cytology and surveillance culture . A post-procedure ultrasound was performed and demonstrated trace residual pleural fluid, consolidated RLL and absence of lung slide. The patient tolerated the procedure well and a post-procedure radiograph has been ordered. The [employer] Pleura-Seal thoracentesis kit was used for this procedure. Any disposable equipmentwas visually inspected and deemed to be intact immediately post procedure. Estimated Blood Loss: <5 mL Complications: None Relevant Pictures Right pleural effusion, pre-thoracentesis Recommendations: Successful right thoracentesis with US guidance A post-procedural chest radiograph has been ordered Await pending results in the next 3-5 business days Shashi Maynard MD, 05/20/2024, 10:50 AM Interventional Pulmonology Section of Pulmonary & Critical Care Pager: [phone] documented in this encounter Miscellaneous Notes * Consult Note - Shashi Maynard MD - 05/20/2024 11:17 AM EST Images from the original note were not included. INTERVENTIONAL PULMONOLOGY OUTPATIENT CONSULT NOTE SECTION OF PULMONARY & CRITICAL CARE MEDICINE PATIENT NAME: Zen Pickering : 1980 MEDICAL RECORD: [id number] PRIMARY CARE PHYSICIAN: Jose Angel Hopkins MD REFERRING PROVIDER: No referring provider defined for this encounter. I have been asked to see Zen Pickering in consultation for the evaluation and management of a pleural effusion. History of Present Illness: Mr. Zen Pickering is a 43 y.o. gentleman with a history of right tonsil squamous cell carcinoma and a never smoker and identification of stage IV adenocarcinoma of the lung in 03/2024 with extensive pleural and lung involvement. Presence of a pleural effusion throughout his imaging since diagnosis. He underwent initial thoracentesis at [facility] on 05/16/2024 with a evacuation of 2.5 L ofpleural fluid. No subsequent imaging since then. In speaking to Zen and his , they cannot determine if he experienced any improvement in dyspnea following this as he was also feeling poorly more recently following chemotherapy. If anything he did have some mild improvement in sensation of chest pressure and cough but unclear if this was significant enough to impact his quality of life. Today he actually feels like he is having a better day than prior. At baseline prior to this diagnosis he is actually very functional and is an avid runner and bicyclist although has not been running in the last few months. Review of Systems: A 12 point ROS was negative aside from as listed in the HPI. Past Medical History: Patient Active Problem List Diagnosis Code 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 Raynaud's syndrome I73.00 Dysphagia, oropharyngeal phase R13.12 Aspiration pneumonia of right lower lobe J69.0 Dehydration E86.0 Choking due to phlegm in larynx T17.310A Drug-induced nausea and vomiting R11.2, T50.905A Adenocarcinoma, lung, right C34.91 Medications: Prior to Admission medications Medication Sig Start Date End Date Taking? Authorizing Provider doxycycline (Vibramycin) 100 mg capsule Take 100 mg by mouth 2 times daily. PROVIDER, HISTORICAL amoxicillin-clavulanate (Augmentin) 875-125 mg tablet Take 1 tablet by mouth 2 times daily. PROVIDER, HISTORICAL ciprofloxacin (Cipro) 500 mg tablet Take 1 tablet by mouth 2 times daily. 05/17/24 Tej Tipton MD levothyroxine (Synthroid) 100 mcg tablet Take 1 tablet by mouth daily. 05/10/24 Stacy Valle APRN prochlorperazine (Compazine) 10 mg tablet Take 1 tablet by mouth every 6 hours as needed. 05/10/24 Stacy Valle APRN lidocaine (Lidoderm) 5% Adhesive Patch, Medicated Apply 1 patch onto the skin daily. (leave on for 12 hours and remove for 12 hours) Patient not taking: Reported on 05/17/2024 05/05/24 Tej Tipton MD folic acid (Vitamin B9) 1 mg tablet Take 1 tablet by mouth daily. 05/03/24 Tej Tipton MD rosuvastatin (Crestor) 20 mg tablet Take 1 tablet by mouth Daily at Noon. 02/10/24 PROVIDER, HISTORICAL venlafaxine XR (Effexor-XR) 75 mg ER 24 hr capsule Take 75 mg by mouth daily. PROVIDER, HISTORICAL cyclobenzaprine (Flexeril) 10 mg tablet See Instructions, PRN as needed for muscle spasm, one po qhs prn spasm, # 20 tab, 0 Refill(s), Pharmacy: [phone] 10/14/22 PROVIDER, HISTORICAL Ibuprofen 200 mg Capsule Take 600 mg by mouth every 6 hours as needed. PROVIDER, HISTORICAL amLODIPine-benazepril (LOTREL) 5-10 mg Capsule Take 1 capsule by mouth daily as needed. PROVIDER, HISTORICAL albuteroL 90 mcg/actuation HFA Aerosol Inhaler Inhale 2 puffs into the lungs every 4 hours as needed for Wheezing. Use with spacer PROVIDER, HISTORICAL Objective: Patient Vitals for the past 24 hrs: Heart Rate From SP02 Pulse Resp BP SpO2 O2 Device 05/20/24 0859 -- 82 20 134/81 99 % RA 05/20/24 1024 -- 89 -- 131/89 97 % RA 05/20/24 1030 -- -- -- -- 98 % -- 05/20/24 1040 -- -- -- -- 97 % -- 05/20/24 1050 -- 82 -- -- 97 % -- 05/20/24 1055 -- -- -- -- 97 % -- 05/20/24 1100 -- -- -- -- 96 % -- 05/20/24 1105 (!) 104 bpm -- -- 123/73 97 % RA General: This is a 43 y.o. 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 gentleman who I am seeing today at the request of his medical oncologist for evaluation of indwelling pleural catheter in our endoscopy unit. He has known stage IV NSCLCin a never-smoker as diagnosed in 03/2024. Right pleural effusion seen diagnosis with first thoracentesis occurring at [facility] on 05/16/24 uncertainty as to whether any lung reexpansion occurred (no postdrainage imaging) and more importantly Zen nor his are sure whether or not he garnered any clinically meaningful improvement after his drainage (with the caveat that he was also feeling poorly overall following his chemotherapy infusion and is overall feeling better today). Assuming this hari malignant effusion (not clear if cytology sent on his 05/16/24 pleural fluid sample), we discussedthe near certain risk of effusion recurrence and elevated risk of there being a component of potential non-expandable lung in his case. We discussed the various options available to us for palliationof MPE including serial thoracentesis (reserved for select cases), indwelling pleural catheter placement (IPC) (i.e., PleurX), pleurodesis by means of VATS/MT with talc poudrage or talc slurry via chest tube/IPC, and multimodality approaches (Am J RespirCritCareMed. 2018 Jan 26;198(7):839 and N EnglJ Med. 2018 ;378(14):131). The risks and benefits of these options were discussed and compared.We then reviewed how the decision to proceed with a more durable palliative management strategy following initial thoracentesis is based on several factors including timeline to recurrence, whether meaningful symptomatic benefit was achieved, presence of non-expandable lung, the patient's functional ity and local support system, and of course patient preference. Lastly, we discussed how any of these options are purely for the sake of palliation of dyspnea which is the most important outcome. In Mr. Pickering's case, it remains unclear whether he garnered any symptomatic benefit from his initial th oracentesis. Furthermore, it's also unclear to me whether he will demonstrate lung re-expansion given the appearance of his CT imaging. In addition, if he requires definitive palliation of his pleural space, he remains open to a surgical approach and avoidance of an IPC if possible (but is ok with whatever option we ultimately recommend). Given the aforementioned uncertainties, and after a shareddecision making conversation, we opted to forego IPC placement today and instead start with a second thoracentesis for two purposes, 1) to help better delineate whether he has lung re-expansion, and 2) to help better determine whether he garners symptomatic benefit from pleural fluid evacuation. Hewas provided ample time to ask questions which were answered to his liking. Recommendations: As above Note to be sent to Jose Angel Hopkins MD Follow-up with me on an as needed basis Addendum: Patient completed uneventful thoracentesis with evacuation of 1.1L of serosanguinous pleural fluid (see separate note) prior to onset of self-limiting chest pain at which time procedure was terminated. Post-procedure US demonstrates small residual effusion, consolidated RLL, and absence of lung slid e. A post-procedure AP CXR is noted below/otherwise indeterminate. He is already scheduled to see Dr. Suresh from Thoracic Surgery on 05/27/24 and he will keep that appointment on the books. In the interim, he will spend the next few days thinking about the quality of his breathing and whether today's drainage made any improvement. He understands that if he is taken for VATS then he may undergo pleurodesis if the lung actually re-expands versus placement of an IPC at that time if the lung doesnot, or that Dr. Suresh may advise against VATS in which case we should proceed with IPC placement if he is symptomatically improved from today's pleural fluid evacuation. My overall gestalt after speaking to him and his at great length is that he probably did godfrey some overall improvement/will do better with some form of pleural palliation. Post-thoracentesis CXR: I personally performed a total of 60 minutes or greater of aggregate time involved in patient evaluation, reviewing medical records, interpreting diagnostic studies (imaging and/or labs), formulatingmy plan, and documentation of this consultation note . Shashi Maynard MD Interventional Pulmonology Section of Pulmonary & Critical Care Pager: [phone] documented in this encounter Plan of Treatment Upcoming Encounters Date Type Department Care Team (Late st Contact Info) Description 05/31/2024 11:30 AM EST Office Visit Hematology/Oncolog y at [address] [phone] Tej Tipton MD [address] HEMATOLOGY [place] [address] Stacy Valle APRN [facility] [place] [address] 06/01/2024 10:30 AM EST Scheduled View Only [place] [address] 06/01/2024 11:00 AM EST Office Visit [place] [phone] Luis E Chin MD [facility] [place] [address] 06/04/2024 8:30 AM EST Hospital Encounter [place] [address] Rayshawn Suresh MD [facility] [place] [address] 06/04/2024 8:30 AM EST - 06/04/2024 1:05 PM EST Surgery [place] [phone] Rayshawn Suresh MD [facility] [place] [address] @THORACOSCOPY, SURG; W PLEURODESIS (WRVU 10.83) Scheduled [...] Priority Date/Time Associated Diagnosis Comments XR CHEST ONE VIEW STAT 05/20/2024 11: 22 AM EST CYTOLOGY NON-BILINGUAL TEACHER AIDE Routine 05/20/2024 10:5 7 AM EST BODY FLUID CULTURE, AEROBIC Routine 05/20/2024 10:57 AM EST Thoracentesis Needle/Cath Pleura W Imaging ([id number]) 05/20/2024 10:24 AM EST Pleural effusion Malignant neoplasm of lung, unspecified laterality, unspecified part of lung documented in this encounter Results * XR Chest One View (05/20/2024 11:22 AM EST) WORKSTATION ID [id number] RAD Anatomical Region Laterality Modality Chest N/A [...] who have questions please contact the health direct care professional that requested your imaging first. ? Electronically signed by: Jigar Mustafa DO [facility] ([phone]), at 05/20/2024 11:50 AM Narrative 05/20/2024 11:50 AM EST EXAMINATION: XR [...] patients who have questions please contactthe health direct care professional that requested your imaging first. Shashi Maynard MD IMG DX ORDERABLES * Body Fluid Culture, Aerobic Only (05/20/2024 10:57 AM EST) Body Fluid Culture No growth 05/24/2024 8:59 AM [facility] Gram Stain Cytocentrifuge Gram Stain performed 05/24/2024 8:59 AM [facility] Gram Stain Neutrophils seen 05/24/19 25 8:59 AM [facility] Gram Stain No microorganisms seen 05/24/2024 8:59 AM [facility] Body Fluid RIGHT PLEURAL FLUID / Unknown Non Blood Collection / Unknown 05/20/2024 10:57 AM EST 05/20/2024 12:32 PM EST Shashi Maynard MD MICROBIOLOGY - GENER AL ORDERABLES [facility] [place] [address] * (ABNORMAL) Cytology Non-BILINGUAL TEACHER AIDE (05/20/2024 10:57 AM EST) Case Report Medical Cytology Report ? Case: [id number] ? Authorizing Provider: ??Shashi Maynard MD ? Collected: ? 05/20/2024 1057 ? Ordering Location: ? [place] [facility] [place]ceived: ?05/20/2024 1232 ? Pathologist: ? Maximus Romeo MD ? Specimen: ?Pleural Fluid, Right ? 05/26/2024 2:23 PM EST [facility] Specimen Source Pleural Fluid, Right 05/26/2024 2:23 PM EST [facility] Final Diagnosis Positive for malignancy 05/26/2024 2:23 PM EST [facility] Diagnosis Discussion Compatible with metastatic adenocarcinoma. Recommend clinical correlation. (Cell block and an additional level were examined.) 05/26/2024 2:23 PM [facility] Specimen Adequacy Satisfactory for evaluation. 05/26/2024 2:23 PM [facility] Additional Studies Task ID IHC/Special Stains Result A2-2 TTF1 Negative A2-3 Calretinin Negative A2-5 CEA [place] Positive A2-6 Mucicarmine Stain Positive 05/26/2024 2:23 PM [facility] Disclaimer(s) Formalin-fixed, paraffin-embedded tissue sections [...] and other diagnostic tests. 05/26/2024 2:23 PM [facility] Clinical Information History of NSCLC 05/26/2024 2:23 PM [facility] Gross Description Received fresh, approximately 70 mL total volume of cloudy, red fluid with clots. Total preparation: ThinPrep: 1 and Cell Block: 1. 05/26/2024 2:23 PM [facility] Result Note THIS RESULT REQUIRES PHYSICIAN/ROHIT FOLLOW UP(A) 05/26/2024 2:23 PM [facility] Body Fluid RIGHT PLEURAL FLUID / Unknown Non Blood Collection / Unknown 05/20/2024 10:57 AM EST 05/20/2024 12:32 PM EST Shashi Maynard MD PATHOLOGY/CYTOLOGY O RDERABLES [facility] [place] [address] documented in this encounter Visit Diagnoses Diagnosis Pleural effusion Unspecified pleural effusion Malignant neoplasm of lung, unspecified laterality, unspecified part of lung documented in this encounter Care Teams Food Production Manager Relationship Specialty Start Date End Date Jose Angel Hopkins MD [address] [place] [address] [place] [address] PCP - General Family Medicine 04/08/24 documented as of this encounter
--- OUTSIDE RECORDS SUMMARY | 2024-05-31 01:20 | XMS_ITS | Encounter Summary ---
Author Organization [facility] Address [facility] [place] [address] Care Team Providers Care Entertainer & Comic Name Role Phone Jose Angel Hopkins MD Primary Care Provider [phone] Reason for Visit * Reason Comments Genetic Evaluation * Consultation (STAT) - Closed Specialty Diagnoses / Procedures Referred By Fritz lanier Referred To Contact Genetics Diagnoses Adenocarcinoma, lung, right Tej Tipton MD [address] [facility] HEMATOLOGY [place] [address] [facility] Hem Onc [address] [place] [address] Referral ID Status Reason Start Date Expiration Date V isits Requested Visits Authorized [id number] Closed Consult, Test & Treat 05/17/2024 05/17/2025 1 1 Encounter Details Date Type Department Care Team ([facility] Contact Info) Description 05/19/2024 1:00 PM EST TH Visit (TeleHealth) [place] [address] [facility] HEMATOLOG[facility] [place] [address] Adenocarcinoma, lung, right Social History Tobacco Use Types Packs/Day Years Used Date Smoking Tobacco: Never Smokeless Tobacco: Never Alcohol Use Standard Drinks/Week Comments Yes 1 (1 standard drink = 0.6 oz pur e alcohol) occaional Sex and Gender Information Value Date Recorded Sex Assigned at Not on file Gender Identity Not on file Sexual Orientation Not on file documented as of this encounter Progress Notes * Rebekah Alanis LGC - 05/19/2024 1:00 PM EST Zen Pickering was seen by MOISES Alves in consultation at the request of Tej Tipton to advise regarding possible heritable predisposition to cancer. I have personally spent 30 minutes total time today in preparation, patient care, and documentationfor the visit, including 25 minutes spent during the video telehealth encounter. Reason for referral/Chief complaint Personal history of lung cancer with a somatic TP53 gene mutation. 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 He planned to undergo chemotherapy with carboplatin, pemetrexed, pembrolizumab. He is being followed by Dr. Tej Tipton in [facility]. Zen denies any history of smoking. 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 04/02/[address]- second read at [facility] [place] 04/07/2024 IMPRESSION Large right lower lobe mass with [...] and pleural metastatic lesion on the left. 04/23/2025 PET-CT IMPRESSION 1. Large FDG avid conglomerate mass [...] of the left scapula and fourth rib. 05/01/2024 Brain MRI IMPRESSION 4 enhancing intra-axial metastases identified, largest 0.8 cm in the left temporal lobe. Family history: Zen denies any personal history of cancer. Genetic risk assessment Based on personal and/or family history, the likelihood that Zen would be found to have a mutation in a cancer predisposition gene is high enough to offer the option of genetic testing. Per ClinVar, the TP53 gene mutation detected on Zen's somatic testing is classified as pathogenic in the germline setting. While the Zen's personal and family history of cancer is not consistent with aclassic presentation of a germline TP53 pathogenic mutation, it is possible that this is a de zion mutation in Zen and represents a non-classic presentation. Given the somatic NGS results and Zen's young diagnosis of lung cancer in the absence of exposure history, it is reasonable to offer TP53 gene analysis to Zen. Genetic test results may inform Zen's medical management, inform him and his relatives of their hereditary cancer risks, and guide cancer screening recommendations. Panel genetic testing for an inherited predisposition to cancer, including TP53, was discussed. Therisks, benefits and limitations of panel genetic testing were reviewed, specifically a high rate ofidentifying a variant of uncertain significance, lack of knowledge of cancer risk for newly identified, moderate risk genes included in the panel and lack of effective screening, as well as cancer risk for other cancers not observed in the family. We reviewed dominant inheritance, meaning that if a mutation is detected there is a 50% chance for Zen's children and siblings to have also inherited the same gene alteration. We discussed the Genetic Information Nondiscrimination Act (ODILON), a federal law prohibiting discrimination by health insurance companies and most employers based on genetic information. ODILON does not apply to life insurance, disability insurance or long-term care insurance. More information about ODILON may be found at [email or web address]. We reviewed [facility] billing policy. Zen will be notified by text message once Denae completes their benefits investigation with a link to his estimated out of pocket cost for the testing. At thattime, if Zen is concerned about the estimated test cost he will have the option to contact [employer]ae directly and apply for [facility]'s patient assistance program if he has not done so already. If Zen does not contact [facility]'s billing department with any questions or concerns about their bill, testing will still be billed to his insurance and a final bill will be sent out once the claim is submitted and finalized. Zen opted for testing with [facility]' CancerNext-Expanded+RNAinsight Panel, a next generation sequencing panel that simultaneously analyzes 76 genes, including BRCA1 and BRCA2, that contribute to increased risk for cancer. Zen was verbally consented and will be sent consent forms via Tapatalk to review, sign, and return. Orders for the blood draw will be placed after signed consents are received. His blood sample will be drawn on 05/24/2024 T [facility] and sent to [facility]. Testing will take up to 3 weeks from when the lab receives the sample. Zen will be contacted via telephone once his test results become available. At that time, we will discuss with Zen the implications that this test result may have for him as well as his family members, review any recommended screening guidelines for cancer prevention and early detection, and answer any questions he mayhave. documented in this encounter Plan of Treatment Upcoming Encounters Date Type Department Care Team (Late st Contact Info) Description 05/31/2024 11:30 AM EST Office Visit Hematology/Oncolog y at [address] [phone] Tej Tipton MD [address] [facility] [address] HEMATOLOGY [place] [address] Stacy Valle APRN [facility] [place] [address] 06/01/2024 10:30 AM EST Scheduled View [place] [address] 06/01/2024 11:00 AM EST Office [place] [phone] Luis E Chin MD [facility] [place] [address] 06/04/2024 8:30 AM EST Hospital Encounter [place] [phone] Rayshawn Suresh MD [facility] [place] [address] 06/04/2024 8:30 AM EST - 06/04/2024 1:05 PM EST Surgery [place] [address] Rayshawn Suresh MD [facility] [place] [address] @THORACOSCOPY, SURG; W PLEURODESIS (WRVU 10.83) Scheduled Procedures Name Priority Associated Diagnoses Date/Ti me @THORACOSCOPY, SURG; W PLEURODESIS (WRVU 10.83) metastatic pleural effusion 06/04/2024 8:30 AM EST BRONCHOSCOPY, DIAGNOSTIC (WRVU 2.53) metastatic pleural effusion 06/04/2024 8:30 AM EST DIONNA\ALMA.CATHETER,TUNNELED, WITH SQ PORT OR PUMP OVER 5YR (WRVU 5.79) metastatic pleural effusion 06/04/2024 8:30 AM EST Scheduled Referrals Name Type Priority Associated Diagnoses Orde r Schedule Referral to Familial Cancer Program (Genetics) Outpatient Referral Urgent Adenocarcinoma, lung, right Ordered: 05/17/2024 documented as of this encounter Visit Diagnoses Diagnosis Adenocarcinoma, lung, right documented in this encounter Care Teams Entertainer & Comic Relationship Specialty Start Date End Date Jose Angel Hopkins MD [address] [place] [address] [place] [phone] PCP - General Family Medicine 04/08/24 documented as of this encounter
--- OUTSIDE RECORDS SUMMARY | 2024-05-31 01:20 | XMS_ITS | Encounter Summary ---
Author Organization [facility] Address [facility] [place] [address] Care Team Providers Care Golf Manager Name Role Phone Jose Angel Hopkins MD Primary Care Provider [phone] Encounter Details Date Type Department Care Team (Late Contact Info) Description 05/04/2024 Telephone Hematology/Oncology at [address] [phone] Dai Haley Social History Tobacco Use Types Packs/Day Years [...] encounter Miscellaneous Notes * Telephone Encounter - Dai Haley - 05/04/2024 3:47 PM EST I called and spoke to lynda about his appts on 05/10. He is aware of the day and times and needing labs prior. documented in this encounter Plan of Treatment Upcoming Encounters Date Type Department Care Team (Late Contact Info) Description 05/31/2024 11:30 AM EST Office Visit Hematology/Oncolog y at [address] [address] Tej Tipotn MD [address] [facility] HEMATOLOGY & [place] [address] Stacy Valle APRN [facility] DR MEDICAL [place] [address] 06/01/2024 10:30 AM EST Scheduled View Only Radiation Oncology at [place] [phone] 06/01/2024 11:00 AM EST Office Visit Radiation Oncology at [place] [phone] Luis E Chin MD [facility] DR RADIATION [place] [address] 06/04/2024 8:30 AM EST Hospital Encounter [place] [phone] Rayshawn Suresh MD [facility] DR THORACIC [place] [address] 06/04/2024 8:30 AM EST - 06/04/2024 1:05 PM EST Surgery Main Operating Room [place] [phone] Rayshawn Suresh MD [facility] DR THORACIC [place] [address] @THORACOSCOPY, SURG; W PLEURODESIS (WRVU 10.83) Scheduled [...] on filedocumented in this encounter Care Teams Golf Manager Relationship Specialty Start Date End Date Jose Angel Hopkins MD [address] [place] [address] [place] [phone] PCP - General Family Medicine 04/08/24 documented as of this encounter
--- OUTSIDE RECORDS SUMMARY | 2024-05-31 01:20 | XMS_ITS | Encounter Summary ---
Author Organization [facility] [place] [place] [address] Care Team Providers Care System Archive Analyst Name Role Phone Jose Angel Hopkins MD Primary Care Provider [phone] Encounter Details Date Type Department Care Team (Late Contact Info) Description 05/11/2024 [place] [address] Social History Tobacco Use Types Packs/Day Years [...] AM EST Office Visit Hematology/Oncolog y at [address] [address] Tej Tipton MD [address] [facility] [address] HEMATOLOGY & [place] [address] Stacy Valle APRN [facility] [place] [address] 06/01/2024 10:30 AM EST Scheduled View Only [place] [address] 06/01/2024 11:00 AM EST Office Visit [place] [address] Luis E Chin MD [facility] [place] [address] 06/04/2024 8:30 AM EST Hospital Encounter [place] [phone] Rayshawn Suresh MD [facility] [place] [address] 06/04/2024 8:30 AM EST - 06/04/2024 1:05 PM EST Surgery [place] [phone] Rayshawn Suresh MD [facility] [place] [address] @THORACOSCOPY, SURG; W PLEURODESIS (WRVU 10.83) Scheduled [...] Procedure Name Priority Date/Time Associated Diagnosis Comments SURGICAL PATHOLOGY SCAN Routine 05/11/2024 8:49 AM EST documented in this encounter Results * Scan Doc: Surgical Pathology (05/11/2024 8:49 AM EST) Historical Provider MD [facility] MGR SCAN EX T ORDR/RSLT documented in this encounter Visit Diagnoses Not on filedocumented in this encounter Care Teams System Archive Analyst Relationship Specialty Start Date End Date Jose Angel Hopkins MD [address] [place] [address] [place] [address] PCP - General Family Medicine 04/08/24 documented as of this encounter
--- OUTSIDE RECORDS SUMMARY | 2024-05-31 01:20 | XMS_ITS | Encounter Summary ---
Author Organization [facility] [place] [address] Care Team Providers Care Motor And Generator Assembler Name Role Phone Jose Angel Hopkins MD Primary Care Provider [phone] Encounter Details Date Type Department Care Team (Late st Contact Info) Description 05/18/2024 Telephone [place]ology [place] [phone] Stacy Rodriguez Social History Tobacco Use Types Packs/Day Years [...] AM EST Office Visit Hematology/Oncolog y at [address] [phone] Tej Tipton MD [address] [facility] HEMATOLOGY & [place] [address] Stacy Valle APRN [facility] [place] [address] 06/01/2024 10:30 AM EST Scheduled View Only Radiation [place] [phone] 06/01/2024 11:00 AM EST Office Visit Radiation [place] [address] Luis E Chin MD [facility] [place] [address] 06/04/2024 8:30 AM EST Hospital Encounter [place] [phone] Rayshawn Suresh MD [facility] [place] [address] 06/04/2024 8:30 AM EST - 06/04/2024 1:05 PM EST Surgery [place] [address] Rayshawn Suresh MD [facility] [place] [address] @THORACOSCOPY, SURG; W PLEURODESIS (WRVU 10.83) Scheduled [...] on filedocumented in this encounter Care Teams Motor And Generator Assembler Relationship Specialty Start Date End Date Jose Angel Hopkins MD [address] [place] [address] [place] [phone] PCP - General Family Medicine 04/08/24 documented as of this encounter
--- OUTSIDE RECORDS SUMMARY | 2024-05-31 01:20 | XMS_ITS | Encounter Summary ---
Author Organization [facility] [place] [address] Care Team Providers Care Pedigree Tracer Name Role Phone Jose Angel Hopkins MD Primary Care Provider Encounter Details Date Type Department Care Team (Latest Contact Info) Description 04/23/2024 Travel Social History Tobacco Use Types Packs/Day [...] AM EST Office Visit Hematology/Oncolog y at [address] [phone] Tej Tipton MD [facility]0 [facility] DR HEMATOLOGY & [place] [address] Stacy Valle APRN [facility] [place] [address] 06/01/2024 10:30 AM EST Scheduled View Only [place] [phone] 06/01/2024 11:00 AM EST Office Visit [place] [phone] Luis E Chin MD [facility] [place] [address] 06/04/2024 8:30 AM EST Hospital Encounter [place] [phone] Rayshawn Suresh MD [facility] [place] [address] 06/04/2024 8:30 AM EST - 06/04/2024 1:05 PM EST Surgery [place] [phone] Raysahwn Suresh MD [facility] [place] [address] @THORACOSCOPY, SURG; W PLEURODESIS (WRVU 10.83) Scheduled [...] on filedocumented in this encounter Care Teams Pedigree Tracer Relationship Specialty Start Date End Date Jose Angel Hopkins MD [address] [place] [address] [place] [phone] PCP - General Family Medicine 04/08/24 documented as of this encounter
--- OUTSIDE RECORDS SUMMARY | 2024-05-31 01:20 | XMS_ITS | Encounter Summary ---
Author Organization [facility] [place] [address] Care Team Providers Care Double Needle Operator Lockstitch Name Role Phone Jose Angel Hopkins MD Primary Care Provider [phone] Reason for Visit * Diagnostic Test (STAT) - Closed Specialty Diagnoses / Procedures Referred By Fritz lanier Referred To Contact Radiology Diagnoses Tonsil cancer Procedures NM PET CT Standard Plus Head and Neck Dominique Echavarria APRN [facility] [place] [address] [place] [address] Referral ID Status Reason Start Date Expiration Date V isits Requested Visits Authorized [id number] Closed Specialty Service Requested 04/07/2024 10/06/2025 1 2 Encounter Details Date Type Department Care Team (Late st Contact Info) Description 04/23/2024 12:59 PM EST - 04/23/2024 11:59 PM [facility] Hospital Encounter [place] [address] Dominique Echavarria GARBAGE PICK UP MAN [facility] [place] [address] Discharge Disposition: Home Social History Tobacco Use [...] Sig Dispensed Refills Start Date End Date rosuvastatin (Crestor) 20 mg tablet Take 1 tablet by mouth Daily at Noon. 02/10/2024 venlafaxine XR (Effexor-XR) 75 mg ER 24 hr capsule Take 75 mg by mouth daily. cyclobenzaprine (Flexeril) 10 mg tablet See Instructions, PRN as needed for muscle spasm, one po qhs prn spasm, # 20 tab, 0 Refill(s), Pharmacy: [id number] 10/14/2022 Ibuprofen 200 mg Capsule Take 600 mg by mouth every 6 hours as needed. amLODIPine-benazepril (LOTREL) 5-10 mg Capsule Take 1 capsule by mouth daily as needed. albuteroL 90 mcg/actuation HFA Aerosol Inhaler Inhale 2 puffs into the lungs every 4 hours as needed for Wheezing. Use with spacer levothyroxine (Synthroid) 75 mcg tabletIndications:Hypoth yroidism, unspecified type Take 1 tablet by mouth daily. 90 tablet 3 04/29/2023 05/10/2024 documented as of this encounter Plan of Treatment Upcoming Encounters Date Type Department Care Team (Late st Contact Info) Description 05/31/2024 11:30 AM EST Office Visit Hematology/Oncolog y at [address] [phone] Tej Tipton MD [address] [facility] HEMATOLOGY & [place] [address] Stacy Valle APRN [facility] [place] [address] 06/01/2024 10:30 AM EST Scheduled View Only [place] [address] 06/01/2024 11:00 AM EST Office Visit [place] [phone] Luis E Chin MD [facility] [place] [address] 06/04/2024 8:30 AM EST Hospital Encounter [place] [phone] Rayshawn Suresh MD [facility] [place] [address] 06/04/2024 8:30 AM EST - 06/04/2024 1:05 PM EST Surgery [place] [phone] Rayshawn Suresh MD [facility] [place] [address] @THORACOSCOPY, SURG; W PLEURODESIS (WRVU 10.83) Scheduled [...] Procedure Name Priority Date/Time Associated Diagnosis Comments NM PET CT STANDARD PLUS HEAD AND NECK STAT 04/23/2024 2:23 PM EST Tonsil cancer POC, GLUCOSE Routine 04/23/2024 1:11 PM EST documented in this encounter Results * POC, GLUCOSE (04/23/2024 1:11 PM EST) Glucometer, POC 76 65 - 199 mg/dL 04/23/2024 1:11 PM EST [facility] Comment:Supplemental ranges: <140 mg/dL before meals <180 mg/dL all other times of the day. Blood CAPILLARY BLOOD / Unknown 04/23/2024 1:11 PM EST 04/23/2024 1:11 PM EST Dominique Echavarria GARBAGE PICK UP MAN POINT OF CARE JAMARCUS T ORDERABLES [facility] [place] [phone] documented in this encounter Visit Diagnoses Not on filedocumented in this encounter Care Teams Double Needle Operator Lockstitch Relationship Specialty Start Date End Date Jose Angel Hopkins MD [address] [place] [address] [place] [address] PCP - General Family Medicine 04/08/24 documented as of this encounter
--- OUTSIDE RECORDS SUMMARY | 2024-05-31 01:20 | XMS_ITS | Encounter Summary ---
Author Organization [facility] [place] [address] Care Team Providers Care Wire Fence Erector Name Role Phone Jose Angel Hopkins MD Primary Care Provider [phone] Encounter Details Date Type Department Care Team (Late Contact Info) Description 05/20/2024 Orders Only Hematology [place] [address] [address] [facility] [address] [facility] [place] [address] Adenocarcinoma, lung, right; Tonsil cancer Social History Tobacco Use Types Packs/Day Years [...] AM EST Office Visit Hematology/Oncolog y at [address] [phone] Tej Tipton MD [address] [facility] HEMATOLOG[place] [address] Stacy Valle APRN [facility] [place] [address] 06/01/2024 10:30 AM EST Scheduled View Only Radiation Oncology at [place] [phone] 06/01/2024 11:00 AM EST Office Visit Radiation Oncology at [place] [phone] Luis E Chin MD [facility] [place] [address] 06/04/2024 8:30 AM EST Hospital Encounter Main Operating Room [place] [phone] Rayshawn Suresh MD [facility] [place] [address] 06/04/2024 8:30 AM EST - 06/04/2024 1:05 PM EST [place] [phone] Rayshawn Suresh MD [facility] [place] [address] @THORACOSCOPY, SURG; W PLEURODESIS (WRVU 10.83) Scheduled Orders Name Type Priority Associated Diagnoses Orde r Schedule Miscellaneous Lab request Lab Routine Adenocarcinoma, lung, right Tonsil cancer Expected: 05/24/2024 (Approximate), Expires: 11/23/2024 Scheduled Procedures Name Priority Associated Diagnoses Date/Ti me @THORACOSCOPY, SURG; W PLEURODESIS (WRVU 10.83) metastatic pleural effusion 06/04/2024 8:30 AM EST BRONCHOSCOPY, DIAGNOSTIC (WRVU 2.53) metastatic pleural effusion 06/04/2024 8:30 AM EST DIONNA\ALMA.CATHETER,TUNNELED, WITH SQ PORT OR PUMP OVER 5YR (WRVU 5.79) metastatic pleural effusion 06/04/2024 8:30 AM EST documented as of this encounter Visit Diagnoses Diagnosis Adenocarcinoma, lung, right Tonsil cancer Malignant neoplasm of tonsil documented in this encounter Care Teams Wire Fence Erector Relationship Specialty Start Date End Date Jose Angel Hopkins MD [address] [place] [address] [place] [phone] PCP - General Family Medicine 04/08/24 documented as of this encounter
--- OUTSIDE RECORDS SUMMARY | 2024-05-31 01:20 | XMS_ITS | Encounter Summary ---
[place] [address] Care Team Providers Care Human Resources Director Name Role Phone Jose Angel Hopkins MD Primary Care Provider [phone] Reason for Visit * Reason Onset Date Comments Prior Authorization 05/04/2024 Molecular ca ncer testing CPT 57669 is a covered benefit. Encounter Details Date Type Department Care Team (Late st Contact Info) Description 05/04/2024 Telephone Revenue [place] [phone] Anu Aviles Prior Authorization (Molecular cancer testing CPT 61409 is a covered benefit. ) Social History Tobacco Use Types Packs/Day Years [...] encounter Miscellaneous Notes * Telephone Encounter - Anu Aviles - 05/04/2024 4:40 PM ESTSummary: Molecular cancer testing CPT 98142 is a covered benefit. NO PATIENT ACTION NEEDED_INFORMATIONAL ONLY Molecular cancer testing review: CPT 90488 is a covered benefit and does not require prior authorization completed outpatient. E-mail from [employer]era in [employer] ([id number]) requesting coverage review for CPT: 54723 being done on the patient???s right lung tissue obtained on 04/15/24. Accession number is [id number]. Ordering provider is Jigar Mccabe MD. Upon review, patient's primary insurance is [facility] OOS policy # [id number]. No secondary insurance was found. Per phone call to [facility] ([phone]), CPT: 03129 is a covered benefit anddoes not need authorization. Ref: [id number]. Dx: code was not used in determination. Ref: [id number]. Will update Sera. documented in this encounter Plan of Treatment Upcoming Encounters Date Type Department Care Team (Late st Contact Info) Description 05/31/2024 11:30 AM EST Office Visit Hematology/Oncolog y at [address] [phone] Tej Tipton MD [address] [facility] HEMATOLOGY & [place] [address] Stacy Valle APRN [facility] [place] [address] 06/01/2024 10:30 AM EST Scheduled View Only [place] [address] 06/01/2024 11:00 AM EST Office Visit [place] [phone] Luis E Chin MD [facility] [place] [address] 06/04/2024 8:30 AM EST Hospital Encounter [place] [phone] Rayshawn Suresh MD [facility] [place] [address] 06/04/2024 8:30 AM EST - 06/04/2024 1:05 PM EST [place] [address] Rayshawn Suresh MD [facility] [place] [address] @THORACOSCOPY, SURG; W PLEURODESIS (WRVU 10.83) Scheduled [...] on filedocumented in this encounter Care Teams Human Resources Director Relationship Specialty Start Date End Date Jose Angel Hopkins MD [address] [place] [address] [place] [phone] PCP - General Family Medicine 04/08/24 documented as of this encounter
--- OUTSIDE RECORDS SUMMARY | 2024-05-31 01:20 | XMS_ITS | Encounter Summary ---
Author Organization [facility] Address [facility] [place] [address] Care Team Providers Care Turret Press Operator Name Role Phone Jose Angel Hopkins MD Primary Care Provider [phone] Encounter Details Date Type Department Care Team (Late st Contact Info) Description 05/10/2024 Notes Only Hematology/Oncology at [address] [phone] Alyse Kirk TEMPLATE STORAGE CLERK OFFICE OF CARE MANAGEMENT Social History Tobacco Use Types Packs/Day Years Used Date Smoking Tobacco: Never Smokeless Tobacco: Never Alcohol Use Standard Drinks/Week Comments Yes 1 (1 standard drink = 0.6 oz pur e alcohol) occaional Sex and Gender Information Value Date Recorded Sex Assigned at Not on file Gender Identity Not on file Sexual Orientation Not on file documented as of this encounter Progress Notes * Alyse Kirk MSW - 05/10/2024 11:39 AM EST Met with Zen and his during his infusion visit. We met 4 years ago and now I am back for a different cancer. Discussed the following - Supports: Zen identified his Janett as his primary support. They have 13 year old twins/son and daughter and a 7 year old daughter. They have support from extended family. They have a very supportive group of friends. Daily chores and activities; Zen manages his daily chores and activities. Transportation: He does not expect any issues with transportation Work: Zen works for a [employer]. He has flexibility with his work and can work remote. He does have disability benefits through his work. 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 They are managing their financial obligations. They indicated friends have provided various support too. Advance Directive: Zen has the information at home. Coping: Zen and his indicated they are coping as best they can. Inquired about their youngchildren and they have shared some information appropriate to their understanding. They will have supports at school. Need: Zen and his did not identify any specific needs at this time. Plan: Reminded them of TEMPLATE STORAGE CLERK availability and will plan to follow for support and resources. Brief assessment Supportive Counseling Advance care planning documented in this encounter Plan of Treatment Upcoming Encounters Date Type Department Care Team (Late st Contact Info) Description 05/31/2024 11:30 AM EST Office Visit Hematology/Oncolog y at [address] [phone] Tej Tipton MD [facility] HEMATOLOGY & [place] [address] Stacy Valle APRN [facility] [place] [address] 06/01/2024 10:30 AM EST Scheduled View [place] [address] 06/01/2024 11:00 AM EST Office [place] [address] Luis E Chin MD [facility] [place] [address] 06/04/2024 8:30 AM EST Hospital Encounter [place] [address] Rayshawn Suresh MD [facility] [place] [address] 06/04/2024 8:30 AM EST - 06/04/2024 1:05 PM EST Surgery [place] [address] Rayshawn Suresh MD [facility] [place] [address] @THORACOSCOPY, SURG; W PLEURODESIS (WRVU 10.83) Scheduled [...] on filedocumented in this encounter Care Teams Turret Press Operator Relationship Specialty Start Date End Date Jose Angel Hopkins MD [address] [place] [address] [place] [address] PCP - General Family Medicine 04/08/24 documented as of this encounter
--- OUTSIDE RECORDS SUMMARY | 2024-05-31 01:20 | XMS_ITS | Encounter Summary ---
Author Organization [facility] Address [facility] [place] [address] Care Team Providers Care Termination Clerk Name Role Phone Jose Angel Hopkins MD Primary Care Provider [phone] Reason for Visit * Reason Comments Chemotherapy Cycle 1, Day 2; Pemb ro * Treatment/Therapy Plan Authorization (Routine) - Authorized Specialty Diagnoses / Procedures Referred By Contac t Referred To Contact Hematology and Oncology Diagnoses Adenocarcinoma, lung, right Tej Tipton MD [address] [facility] [place]Y [place] [address] Stj Hem Onc Infusion [address] [place] [phone] Referral ID Status Reason Start Date Expiration Date V isits Requested Visits Authorized [id number] Authorized 05/03/2024 05/03/2025 99 0 Encounter Details Date Type Department Care Team (Late st Contact Info) Description 05/11/2024 2:30 PM EST Infusion Hematology Oncology at [address] [address] Adenocarcinoma, lung, right Social History Tobacco Use [...] Sign Reading Time Taken Comments Blood Pressure 152/83 05/11/2024 2:42 PM EST Pulse 90 05/11/2024 2:42 PM EST Temperature 36.5 ??C (97.7 ??F) 05/11/2024 2:42 PM ES T Respiratory Rate 18 05/11/2024 2:42 PM EST Oxygen Saturation 100% 05/11/2024 2:42 PM EST Inhaled Oxygen Concentration - - Weight 83.9 kg (185 lb) 05/11/2024 2:42 PM EST Height 172.7 cm (5' 7.99) 05/11/2024 2:42 PM ES T Body Mass Index 28.14 05/11/2024 2:42 PM EST documented in this encounter Progress Notes * Macy Power RN - 05/11/2024 2:30 PM EST INFUSION THERAPY ADMINISTRATION NOTES DIAGNOSIS: NSCLC CYCLE #:C1D2 REASON FOR VISIT: Pembro SUBJECTIVE Zen offers no complaints. OBJECTIVE LAB DATA: completed 05/10/24 at [facility] IV ACCESS: PIV, immuno study labs drawn. Pre administration: Chemotherapy orders independently verified for drug name, route, and dosage per patient's height, weight and BSA by Macy Power, ARIK & staff pharmacists REACTIONS (DESCRIPTION, TIME, INTERVENTION AND EFFECTIVENESS) none ASSESSMENT Zen was awake, alert and tolerated treatment well. PLAN Return to clinic per routine. documented in this encounter Plan of Treatment Upcoming Encounters Date Type Department Care Team (Late st Contact Info) Description 05/31/2024 11:30 AM EST Office Visit Hematology/Oncolog y at [address] [phone] Tej Tipton MD [address] [facility] HEMATOLOGY & ONCOLOGY [place], [place] [phone] Stacy Valle APRN [facility] DR MEDICAL ONCOLOGY [place], [place] [phone] 06/01/2024 10:30 AM EST Scheduled View [place] [phone] 06/01/2024 11:00 AM EST Office [place] [address] Luis E Chin MD [facility] [place] [address] 06/04/2024 8:30 AM EST Hospital Encounter [place] [address] Rayshawn Suresh MD [facility] DR [place] [address] 06/04/2024 8:30 AM EST - 06/04/2024 1:05 PM EST Surgery [place] [address] Rayshawn Suresh MD [facility] DR [place] [address] @THORACOSCOPY, SURG; W PLEURODESIS (WRVU 10.83) Scheduled [...] Adenocarcinoma, lung, right documented in this encounter Administered Medications Inactive Administered Medications - up to 3 most recent administrations Medication Order MAR Action Action Date Dose Rate Site pembrolizumab (Keytruda) 200 mg in sodium chloride 0.9% 108 mL infusion 200 mg, Intravenous, ONCE, 1 dose, On Fri05/11/24 at 1600, Administer over 30 Minutes, Flush Line with NS after each dose, This agent is restricted to outpatient use. Is this drug being given as an outpatient? Yes New Bag 05/11/2024 3:15 PM EST 200 mg 216 mL/hr documented in this encounter Care Teams Termination Clerk Relationship Specialty Start Date End Date Jose Angel Hopkins MD [address] [place] [address] [place] [address] PCP - General Family Medicine 04/08/24 documented as of this encounter
--- OUTSIDE RECORDS SUMMARY | 2024-05-31 01:20 | XMS_ITS | Encounter Summary ---
Author Organization [facility] Address [facility] [place] [address] Care Team Providers Care [employer] Advisor Name Role Phone Jose Angel Hopkins MD Primary Care Provider [phone] Reason for Visit * Auth/Cert (Routine) Specialty Diagnoses / Procedures Referred By Contac t Referred To Contact Diagnoses Pleural effusion Malignant neoplasm of lung, unspecified laterality, unspecified part of lung Lung cancer, pleural effusion/ Pleur-x placement/ IVCS/ Backer Procedures PRO INSERTION OF INDWELLING TUNNELED PLEURAL CATHETER INSERTION INDWELLING PLEURAL CATHETER W\CUFF (WRVU 3.92) Shashi Maynard MD [facility] [place] [address] [facility] Referral ID Status Reason Start Date Expiration Date Visits Re quested Visits Authorized [id number] 1 1 Encounter Details Date Type Department Care Team (Latest Contact Info) Description 05/20/2024 8:40 AM EST - 05/20/2024 11:42 AM EST Hospital Encounter [place] [address] Shashi Maynard MD [facility] [place] [address] Discharge Disposition: Home Social History Tobacco Use [...] encounter Discharge Instructions * Discharge Instructions* Judith Giron RN - 05/20/2024 11:37 AM EST Bronchoscopy: [...] your doctor if you can take an nzzd-xdo-nrwizop medicine. If you think your pain medicine [...] more? Visit our health information library at [email or web address]. You can also view health information on Robert Applebaum MD, your personal patient account. Log in or sign uptoday. Enter S288 in the search box to learn more about Bronchoscopy: What to Expect at Home. Current as of: October 04, 2018 Content Version: 12.2 ?? 2923-1976 [employer]wise, [employer]. Care instructions adapted under license by [facility]. If you have questions about a medical condition or this instruction, always ask your healthcare professional. [employer] disclaims any warranty or liability for your [...] spasm, # 20 tab, 0 Refill(s), Pharmacy: [id number] 10/14/2022 Ibuprofen 200 mg Capsule Take [...] Section of Pulmonary & Critical Care Pager: [phone] documented in this encounter Procedure Notes * [...] procedure. Procedure Descriptions: Thoracentesis with Ultrasound Guidance (62365): The patient was placed in an upright [...] a post-procedure radiograph has been ordered. The TeensSuccess-Omar Pleura-Seal thoracentesis kit was used for this [...] Section of Pulmonary & Critical Care Pager: [phone] documented in this encounter Miscellaneous Notes * Consult Note - Shashi Maynard MD - 05/20/2024 11:17 AM EST Images from the original note were not included. INTERVENTIONAL PULMONOLOGY OUTPATIENT CONSULT NOTE SECTION OF PULMONARY & CRITICAL CARE MEDICINE PATIENT NAME: Zen Pickering : 1980 MEDICAL RECORD: [id number] PRIMARY CARE PHYSICIAN: Jose Angel Hopkins MD [...] since diagnosis. He underwent initial thoracentesis at [facility] on 05/16/2024 with a evacuation of 2.5 [...] spasm, # 20 tab, 0 Refill(s), Pharmacy: [id number] 10/14/22 PROVIDER, HISTORICAL Ibuprofen 200 mg [...] seen diagnosis with first thoracentesis occurring at [facility] on 05/16/24 uncertainty as to whether any [...] Section of Pulmonary & Critical Care Pager: [phone] documented in this encounter Plan of Treatment Upcoming Encounters Date Type Department Care Team (Late st Contact Info) Description 05/31/2024 11:30 AM EST Office Visit Hematology/Oncolog y at [address] [phone] Tej Tipton MD [address] [facility] [address] HEMATOLOGY & [place] [address] Stacy Valle APRN [facility] [place] [address] 06/01/2024 10:30 AM EST Scheduled View [place] [address] 06/01/2024 11:00 AM EST Office Visit [place] [address] Luis E Chin MD [facility] [place] [address] 06/04/2024 8:30 AM EST Hospital Encounter [place] [address] Rayshawn Suresh MD [facility] [place] [address] 06/04/2024 8:30 AM EST - 06/04/2024 1:05 PM EST Surgery [place] [address] Rayshawn Suresh MD [facility] [place] [address] @THORACOSCOPY, SURG; W PLEURODESIS (WRVU 10.83) Scheduled [...] STAT 05/20/2024 11: 22 AM EST CYTOLOGY NON-MARSHMALLOW RUNNER Routine 05/20/2024 10:5 7 AM EST BODY FLUID CULTURE, AEROBIC Routine 05/20/2024 10:57 AM EST Thoracentesis Needle/Cath Pleura W Imaging (27260) 05/20/2024 10:24 AM EST Pleural effusion Malignant neoplasm of lung, unspecified laterality, unspecified part of lung documented in this encounter Results * XR Chest One View (05/20/2024 11:22 AM EST) WORKSTATION ID [id number] DH RAD Anatomical Region Laterality Modality Chest [...] have questions please contact the health career based intervention coordinator that requested your imaging first. ? Electronically signed by: Jigar Mustafa DO [facility] ([phone]), at 05/20/2024 11:50 AM Narrative 05/20/2024 11:50 [...] who have questions please contactthe health career based intervention coordinator that requested your imaging first. Shashi Maynard MD IMG DX ORDERABLES * Body Fluid Culture, Aerobic Only (05/20/2024 10:57 AM EST) Body Fluid Culture No growth 05/24/2024 8:[address] [facility] Gram Stain Cytocentrifuge Gram Stain performed 05/24/2024 8:[address] [facility] Gram Stain Neutrophils seen 05/24/19 25 8:[address] [facility] Gram Stain No microorganisms seen 05/24/2024 8:59 AM [facility] Body Fluid RIGHT PLEURAL FLUID / Unknown Non Blood Collection / Unknown 05/20/2024 10:57 AM EST 05/20/2024 12:32 PM EST Shashi Maynard MD MICROBIOLOGY - GENER AL ORDERABLES [facility] [place] [address] * (ABNORMAL) Cytology Non-MARSHMALLOW RUNNER (05/20/2024 10:57 AM EST) Case Report Medical Cytology Report ? Case: [id number] ? Authorizing Provider: ??Shashi Maynard MD ? Collected: ? 05/20/2024 1057 ? Ordering Location: ? Gastroenterology at [facility] ?? Received: ?05/20/2024 1232 ? Pathologist: ? Maximus Romeo MD ? Specimen: ?Pleural Fluid, Right ? 05/26/2024 2:[address] [facility] Specimen Source Pleural Fluid, Right 05/26/2024 2:[address] [facility] Final Diagnosis Positive for malignancy 05/26/2024 2:[address] [facility] Diagnosis Discussion Compatible with metastatic adenocarcinoma. Recommend clinical correlation. (Cell block and an additional level were examined.) 05/26/2024 2:[address] [facility] Specimen Adequacy Satisfactory for evaluation. 05/26/2024 2:23 PM [facility] Additional Studies Task ID IHC/Special Stains Result A2-2 TTF1 Negative A2-3 Calretinin Negative A2-5 CEA Hockley Positive A2-6 Mucicarmine Stain Positive 05/26/2024 2:23 PM [facility] Disclaimer(s) Formalin-fixed, paraffin-embedded tissue sections are [...] and other diagnostic tests. 05/26/2024 2:23 PM [facility] Clinical Information History of NSCLC 05/26/2024 2:23 PM [facility] Gross Description Received fresh, approximately 70 mL total volume of cloudy, red fluid with clots. Total preparation: ThinPrep: 1 and Cell Block: 1. 05/26/2024 2:23 PM [facility] Result Note THIS RESULT REQUIRES PHYSICIAN/ROHIT FOLLOW UP(A) 05/26/2024 2:23 PM [facility] Body Fluid RIGHT PLEURAL FLUID / Unknown Non Blood Collection / Unknown 05/20/2024 10:57 AM EST 05/20/2024 12:32 PM EST Shashi Maynard MD PATHOLOGY/CYTOLOGY O RDERABLES [facility] [place] [address] documented in this encounter Visit Diagnoses Not on filedocumented in this encounter Care Teams [employer] Advisor Relationship Specialty Start Date End Date Jose Angel Hopkins MD [address] [place] [address] [place] [address] PCP - General Family Medicine 04/08/24 documented as of this encounter
--- OUTSIDE RECORDS SUMMARY | 2024-05-31 01:20 | XMS_ITS | Encounter Summary ---
Author Organization [facility] [place] [address] Care Team Providers Care Shorthand Reporter Name Role Phone Jose Angel Hopkins MD Primary Care Provider [phone] Encounter Details Date Type Department Care Team (Latest Contact Info) Description 04/23/2024 12:45 PM EST Laboratory Appointment Lab at [facility] Hematology Oncology [address] [place] [phone] History of oropharyngeal cancer; Adenocarcinoma of lung, right Social History Tobacco Use Types [...] AM EST Office Visit Hematology/Oncolog y at [address] [phone] Tej Tipton MD [address] [facility] HEMATOLOGY & [place] [address] Stacy Valle APRN [facility] [place] [address] 06/01/2024 10:30 AM EST Scheduled View [place] [address] 06/01/2024 11:00 AM EST Office Visit [place] [address] Luis E Chin MD [facility] [place] [address] 06/04/2024 8:30 AM EST Hospital Encounter [place] [address] Rayshawn Suresh MD [facility] [place] [address] 06/04/2024 8:30 AM EST - 06/04/2024 1:05 PM EST Surgery [place] [address] Rayshawn Suresh MD [facility] [place] [address] @THORACOSCOPY, SURG; W PLEURODESIS (WRVU 10.83) Scheduled Procedures Name Priority Associated Diagnoses Date/Ti me @THORACOSCOPY, SURG; W PLEURODESIS (WRVU 10.83) metastatic pleural effusion 06/04/2024 8:30 AM EST BRONCHOSCOPY, DIAGNOSTIC (WRVU 2.53) metastatic pleural effusion 06/04/2024 8:30 AM EST DIONNA\ALMA.CATHETER,TUNNELED, WITH SQ PORT OR PUMP OVER 5YR (WRVU 5.79) metastatic pleural effusion 06/04/2024 8:30 AM EST documented as of this encounter Visit Diagnoses Diagnosis History of oropharyngeal cancer Personal history of malignant neoplasm of other and unspecified parts of oral cavity and pharynx Adenocarcinoma of lung, right documented in this encounter Care Teams Shorthand Reporter Relationship Specialty Start Date End Date Jose Angel Hopkins MD [address] [place] [address] [place] [phone] PCP - General Family Medicine 04/08/24 documented as of this encounter
--- OUTSIDE RECORDS SUMMARY | 2024-05-31 01:20 | XMS_ITS | Encounter Summary ---
[place] [address] Care Team Providers Care Metal Fabricator Name Role Phone Jose Angel Hopkins MD Primary Care Provider [phone] Reason for Referral * Consultation (Urgent) - Closed Specialty Diagnoses / Procedures Referred By Contac t Referred To Contact Thoracic Surgery Diagnoses Adenocarcinoma, lung, right Adenocarcinoma, lung, right Tej Tipton MD [address] [facility] [address] HEMATOLOGY [place] [address] [facility] Thoracic Surg [address] [place] [phone] Referral ID Status Reason Start Date Expiration Date V isits Requested Visits Authorized [id number] Closed Consult, Test & Treat 05/17/2024 05/17/2025 1 1 * Consultation (STAT) - Closed Specialty Diagnoses / Procedures Referred By Contac t Referred To Contact Genetics Diagnoses Adenocarcinoma, lung, right Tej Tipton MD [address] [facility] HEMATOLOGY & [place] [address] [facility] Hem Onc [address] [place] [phone] Referral ID Status Reason Start Date Expiration Date V isits Requested Visits Authorized [id number] Closed Consult, Test & Treat 05/17/2024 05/17/2025 1 1 Encounter Details Date Type Department Care Team (Late st Contact Info) Description 05/17/2024 2:00 PM EST Office Visit Hematology/Oncology at [address] [phone] Tej Tipton MD [address] [facility] HEMATOLOGY [place] [address] Stacy Valle MIG TIG WELDER [facility] [place] [address] Adenocarcinoma, lung, right Social History Tobacco Use [...] Sign Reading Time Taken Comments Blood Pressure 137/80 05/17/2024 1:54 PM EST Pulse 96 05/17/2024 1:54 PM EST Temperature 36.9 ??C (98.4 ??F) 05/17/2024 1:54 PM ES T Respiratory Rate 16 05/17/2024 1:54 PM EST Oxygen Saturation 100% 05/17/2024 1:54 PM EST Inhaled Oxygen Concentration - - Weight 78.6 kg (173 lb 3.2 oz) 05/17/2024 1:54 P M EST Height 172.7 cm (5' 7.99) 05/17/2024 1:54 PM ES T Body Mass Index 26.34 05/17/2024 1:54 PM EST documented in this encounter Progress Notes * Tje Tipton MD - 05/17/2024 2:00 PM EST Oncology Outpatient Clinic Note Patient Referred [...] L, persistent dyspnea and right pleural effusion HPI Mr Pickering is a 43 y.o. [...] larynx, no concerning lesions in the OP, CORRECTIONAL CAPTAIN or HP. CT scan from 04/02/2024 reviewed [...] started on amoxicillin and oxacillin at outside institution. Patient presents today with persistent dyspnea but afebrile, on exam persistent right pleural effusion two thirds up PMH: Past Medical History: Diagnosis Date Asthma Raynaud's disease Tonsil cancer Social history: He is . Has 3 children. Family Hx: No family history on file. Physical exam: Patient Vitals for the past 24 hrs: Temp Pulse Resp BP SpO2 05/17/24 1354 36.9 ??C (98.4 ??F) 96 16 137/80 100 % No adenopathy Right lung a dullness [...] malignant pleural effusion increased in size Labs: 05/17/24: WBC 5.0, hemoglobin 13.5 platelet count [...] right pleurodesis 2.5 l, with minimal relief; differential diagnosis of postobstructive pneumonia, outside institution initiated treatment with amoxicillin and doxycycline #Venous access: order for port placement #CINV: Rx sent for compazine PRN #Hypothyroidism: TSH 10.14. Levothyroxine increased to 100mcg daily. 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 documented in this encounter Plan of Treatment Upcoming Encounters Date Type Department Care Team (Late st Contact Info) Description 05/31/2024 11:30 AM EST Office Visit Hematology/Oncolog y at [address] [phone] Tej Tipton MD [address] [facility] HEMATOLOGY & [place] [address] Stacy Valle APRN [facility] [place] [address] 06/01/2024 10:30 AM EST Scheduled View Only [place] [address] 06/01/2024 11:00 AM EST Office Visit [place] [address] Luis E Chin MD [facility] [place] [address] 06/04/2024 8:30 AM EST Hospital Encounter [place] [address] Rayshawn Suresh MD [facility] [place] [address] 06/04/2024 8:30 AM EST - 06/04/2024 1:05 PM EST Surgery [place] [address] Rayshawn Suresh MD [facility] [place] [address] @THORACOSCOPY, SURG; W PLEURODESIS (WRVU 10.83) Scheduled [...] Referral Urgent Adenocarcinoma, lung, right Ordered: 05/17/2024 Amb Ref To Thoracic Surgery Outpatient Referral Urgent Adenocarcinoma, lung, right Ordered: 05/17/2024 documented as of this encounter Visit Diagnoses Diagnosis Adenocarcinoma, lung, right documented in this encounter Care Teams Metal Fabricator Relationship Specialty Start Date End Date Jose Angel Hopkins MD [address] [place] [address] [place] [phone] PCP - General Family Medicine 04/08/24 documented as of this encounter
--- OUTSIDE RECORDS SUMMARY | 2024-05-31 01:20 | XMS_ITS | Encounter Summary ---
Author Organization [facility] Address [facility] [place] [address] Care Team Providers Care Sandwich Machine Operator Name Role Phone Jose Angel Hopkins MD Primary Care Provider [phone] Reason for Visit * Reason Onset Date Comments Other 04/26/2024 Encounter Details Date Type Department Care Team (Late Contact Info) Description 04/26/2024 Telephone Hematology/Oncology at [address] [phone] Taniya Barajas RN Other Social History Tobacco Use Types Packs/Day Years [...] Telephone Encounter - Taniya Barajas RN - 04/26/2024 9:58 AM EST Spoke with lynda per Dr. Tipton. His maxx dx testing came back negative which was expected. Lynda sttes he is doing the same. His neck is feeling better from all the coughing at the biopsy. Per Dr. Tipton he does not have to come in today. Lynda agrees with this. Dr. Tipton we call him tomorrow when results come back on molecular testing and tumor board discussion. documented in this encounter Plan of Treatment Upcoming Encounters Date Type Department Care Team (Late Contact Info) Description 05/31/2024 11:30 AM EST Office Visit Hematology/Oncolog y at [address] [phone] Tej Tipton MD [address] [facility] [place] [address] Stacy Valle APRN [facility] [place] [address] 06/01/2024 10:30 AM EST Scheduled View Only [place] [phone] 06/01/2024 11:00 AM EST Office Visit [place] [phone] Luis E Chin MD [facility] [place] [address] 06/04/2024 8:30 AM EST Hospital Encounter [place] [phone] Rayshawn Suresh MD [facility] [place] [address] 06/04/2024 8:30 AM EST - 06/04/2024 1:05 PM EST [place] [address] Rayshawn Suresh MD [facility] [place] [address] @THORACOSCOPY, SURG; W PLEURODESIS (WRVU 10.83) Scheduled [...] on filedocumented in this encounter Care Teams Sandwich Machine Operator Relationship Specialty Start Date End Date Jose Angel Hopkins MD [address] [place] [address] [place] [phone] PCP - General Family Medicine 04/08/24 documented as of this encounter
--- OUTSIDE RECORDS SUMMARY | 2024-05-31 01:20 | XMS_ITS | Encounter Summary ---
Author Organization [facility] Address [facility] [place] [address] Care Team Providers Care Restaurant Cook Name Role Phone Jose Angel Hopkins MD Primary Care Provider [phone] Encounter Details Date Type Department Care Team (Late Contact Info) Description 05/16/2024 Ancillary Procedure Radiology Library at [facility] [place] [address] BackerShashi MD [facility] [place] [address] Social History Tobacco Use Types Packs/Day Years [...] AM EST Office Visit Hematology/Oncolog y at [address] [phone] Tej Tipton MD [address] [facility] HEMATOLOGY & [place] [address] Stacy Valle APRN [facility] [place] [address] 06/01/2024 10:30 AM EST Scheduled View Only [place] [address] 06/01/2024 11:00 AM EST Office Visit [place] [address] Luis E Chin MD [facility] DR [place] [address] 06/04/2024 8:30 AM EST Hospital Encounter [place] [address] Rayshawn Suresh MD [facility] DR [place] [address] 06/04/2024 8:30 AM EST - 06/04/2024 1:05 PM EST Surgery [place] [address] Rayshawn Suresh MD [facility] DR [place] [address] @THORACOSCOPY, SURG; W PLEURODESIS (WRVU 10.83) Scheduled [...] Procedure Name Priority Date/Time Associated Diagnosis Comments FILM LIBRARY STORAGE ONLY CT CHEST ABDOMEN PELVIS Routine 05/16/2024 12:00 AM EST documented in this encounter Results * Film Library- Storage Only CT Chest Abdomen Pelvis (05/16/2024 12:00 AM EST) Narrative [facility] - 05/20/2024 7:28 AM EST This exam is auto-finalizing. It's purpose is for storage only. Shashi Maynard MD IMG FILM LIBRARY ORD ERABLES JACQUELINE [place] documented in this encounter Visit Diagnoses Not on filedocumented in this encounter Care Teams Restaurant Cook Relationship Specialty Start Date End Date Jose Angel Hopkins MD [address] [place] [address] [place] [address] PCP - General Family Medicine 04/08/24 documented as of this encounter
--- OUTSIDE RECORDS SUMMARY | 2024-05-31 01:20 | XMS_ITS | Encounter Summary ---
Author Organization [facility] Address [facility] [place] [address] Care Team Providers Care Assembler Fluorescent Lights Name Role Phone Jose Angel Hopkins MD Primary Care Provider [phone] Encounter Details Date Type Department Care Team (Late st Contact Info) Description 05/10/2024 Orders Only Hematology/Oncology at [address] [phone] Stacy Valle APRN [facility] [place] [address] Social History Tobacco Use Types Packs/Day Years Used Date Smoking Tobacco: Never Smokeless Tobacco: Never Alcohol Use Standard Drinks/Week Comments Yes 1 (1 standard drink = 0.6 oz pur e alcohol) occaional Sex and Gender Information Value Date Recorded Sex Assigned at Not on file Gender Identity Not on file Sexual Orientation Not on file documented as of this encounter Progress Notes * Stacy Valle APRN - 05/10/2024 3:44 PM EST Patient called with chemotherapy precautions as reviewed with pharmacy. For 72 hours following chemo: A barrier method (aka condom) should be used (only 72 hours post chemo, not necessary the whole time) Close the lid and flush twice and make sure everything goes down Clean counters/surfaces with Clorox wipes If the patient vomits, anyone cleaning should use gloves If the patient experiences night sweats or has a really sweaty day outside (summertime) launder clothes separately documented in this encounter Plan of Treatment Upcoming Encounters Date Type Department Care Team (Late st Contact Info) Description 05/31/2024 11:30 AM EST Office Visit Hematology/Oncolog y at [address] [phone] Tej Tipton MD [address] [facility] HEMATOLOGY & [place] [address] Stacy Valle APRN [facility] [place] [place] [address] 06/01/2024 10:30 AM EST Scheduled View Only [place] [phone] 06/01/2024 11:00 AM EST Office Visit [place] [phone] Luis E Chin MD [facility] [place] [address] 06/04/2024 8:30 AM EST Hospital Encounter [place] [phone] Rayshawn Suresh MD [facility] [place] [address] 06/04/2024 8:30 AM EST - 06/04/2024 1:05 PM EST Surgery [place] [phone] Rayshawn Suresh MD [facility] [place] [place] [address] @THORACOSCOPY, SURG; W PLEURODESIS (WRVU 10.) Scheduled Procedures Name Priority Associated Diagnoses Date/Ti [...] on filedocumented in this encounter Care Teams Assembler Fluorescent Lights Relationship Specialty Start Date End Date Jose Angel Hopkins MD [address] [place] [phone] PCP - General Family Medicine 04/08/24 documented as of this encounter
--- OUTSIDE RECORDS SUMMARY | 2024-05-31 01:20 | XMS_ITS | Encounter Summary ---
Author Organization [facility] Agustina [facility] [place] [address] Care Team Providers Care Lead Quality Control Technician Name Role Phone Jose Angel Hopkins MD Primary Care Provider [phone] Reason for Referral * Diagnostic Test (STAT) - Closed Specialty Diagnoses / Procedures Referred By Contac t Referred To Contact Radiology Diagnoses Tonsil cancer Procedures NM PET CT Standard Plus Head and Neck Dominique Echavarria APRN [facility] DR [place]Y [place] [address] [place] [address] Referral ID Status Reason Start Date Expiration Date V isits Requested Visits Authorized [id number] Closed Specialty Service Requested 04/07/2024 10/06/2025 1 2 Reason for Visit * Diagnostic Test (STAT) - Closed Specialty Diagnoses / Procedures Referred By Contac t Referred To Contact Radiology Diagnoses Tonsil cancer Procedures NM PET CT Standard Plus Head and Neck Dominique Echavarria APRN [facility] DR [place] [address] [place] [address] Referral ID Status Reason Start Date Expiration Date V isits Requested Visits Authorized [id number] Closed Specialty Service Requested 04/07/2024 10/06/2025 1 2 Encounter Details Date Type Department Care Team (Late Contact Info) Description 04/23/2024 12:59 PM EST - 04/23/2024 11:59 PM EST Hospital Encounter [place] [address] Dominique Echavarria MEDICAL TECHNOLOGIST CHIEF [facility] DR [place] [address] Tonsil cancer Discharge Disposition: Home Social History Tobacco Use [...] spasm, # 20 tab, 0 Refill(s), Pharmacy: [facility] 10/14/2022 Ibuprofen 200 mg Capsule Take [...] AM EST Office Visit Hematology/Oncolog y at [address] [phone] Tej Tipton MD [address] [facility] DR HEMATOLOGY [place] [address] Stacy Valle APRN [facility] [place] [address] 06/01/2024 10:30 AM EST Scheduled View [place] [address] 06/01/2024 11:00 AM EST Office [place] [phone] Luis E Chin MD [facility] [place] [address] 06/04/2024 8:30 AM EST Hospital Encounter [place] [address] Rayshawn Suresh MD [facility] [place] [address] 06/04/2024 8:30 AM EST - 06/04/2024 1:05 PM EST Surgery [place] [address] Rayshawn Suresh MD [facility] [place] [address] @THORACOSCOPY, SURG; W PLEURODESIS (WRVU 10.83) Scheduled [...] STAT 04/23/2024 2:23 PM EST Tonsil cancer documented in this encounter Results * NM PET CT Standard Plus Head and Neck (04/23/2024 2:23 PM EST) WORKSTATION ID [id number] RAD Anatomical Region Laterality Modality Positron Emissio [...] who have questions please contact the health child care leader that requested your imaging first. ? Electronically signed by: Jigar Mustafa DO, [facility] ([phone]), at 04/27/2024 2:37 PM 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, Malignant neoplasm of tonsil, unspecified TECHNIQUE: Following IV injection of 52-dohpuh-2-deoxyglucose (FDG) a standard uptake of approximately 60 [...] (axial image 124). Procedure Note Jigar Mustafa, - 04/27/2024 EXAMINATION: NM PET CT STANDARD PLUS HEAD AND NECK CLINICAL HISTORY: history of tonsil cancer and now new enlarging rightlower lobe lung mass with hilar adenopathy and right pleural effusion, assessingfor new malignancy C09.9, Malignant neoplasm of tonsil, unspecified TECHNIQUE: Following IV injection of 41-wvnaqe-3-deoxyglucose (FDG) astandard uptake of approximately 60 minutes, [...] central lucency within the left scapula (axial slune634). FDG avid lesion within the left fourth [...] patients who have questions please contactthe health child care leader that requested your imaging first. Dominique Echavarria BATSHEVA IMG PET ORDERABLE S documented in this encounter Visit Diagnoses Diagnosis Tonsil cancer Malignant neoplasm of tonsil documented in this encounter Administered Medications Inactive Administered Medications - up to 3 most recent administrations Medication Order MAR Action Action Date Dose Rate Site fludeoxyglucose (F-18) FDG injection 0-20 mCi 0-20 mCi, Intravenous, ONCE PRN, 1 dose, Starting on Fri04/23/24 at 1328, Until Fri04/23/24 at 1314, Per Protocol, Radiology Contrast, Routine Given 04/23/2024 1:14 PM EST 12 mCi Right Arm documented in this encounter Care Teams Lead Quality Control Technician Relationship Specialty Start Date End Date Jose Angel Hopkins MD [address] [place] [address] [place] [phone] PCP - General Family Medicine 04/08/24 documented as of this encounter
--- OUTSIDE RECORDS SUMMARY | 2024-05-31 01:20 | XMS_ITS | Encounter Summary ---
[place] [address] Care Team Providers Care Grease Man Name Role Phone Jose Angel Hopkins MD Primary Care Provider [phone] Reason for Referral * Diagnostic Test (Routine) - Authorized Specialty Diagnoses / Procedures Referred By Contac t Referred To Contact Radiology Diagnoses Adenocarcinoma of lung, right Procedures IR Mediport Placement Laura Stevenson APRN [facility] [place] [address] [place] [address] Referral ID Status Reason Start Date Expiration Date Visits Requested Visits Authorized [id number] Authorized Specialty Service Requested 05/10/2024 11/07/2025 1 1 Encounter Details Date Type Department Care Team (Late st Contact Info) Description 05/10/2024 9:30 AM EST Office Visit Hematology/Oncology at [address] [phone] Tej Tipton MD [address] [facility] HEMATOLOGY & ONCOLOGY [place], [place] [id number] Laura Stevenson APRN [facility] [place] [address] Adenocarcinoma of lung, right; High risk medication use; Hypothyroidism, unspecified type Social History Tobacco Use Types Packs/Day Years [...] Sign Reading Time Taken Comments Blood Pressure 133/89 05/10/2024 9:20 AM EST Pulse 77 05/10/2024 9:20 AM EST Temperature 36.3 ??C (97.3 ??F) 05/10/2024 9:20 AM ES T Respiratory Rate 18 05/10/2024 9:20 AM EST Oxygen Saturation 100% 05/10/2024 9:20 AM EST Inhaled Oxygen Concentration - - Weight 83.6 kg (184 lb 3.2 oz) 05/10/2024 9:20 A M EST Height 172.7 cm (5' 7.99) 05/10/2024 9:20 AM ES T Body Mass Index 28.01 05/10/2024 9:20 AM EST documented in this encounter Progress Notes * Laura Stevenson, POLICE SERGEANT [employer]CIN[employer] - 05/10/2024 9:30 AM EST Oncology Outpatient Clinic Note Patient [...] - adeno carcinoma;04/15/2024 RLL bx - adeno carcinoma Oncologic Hx: 2020: Odynophagia, right otalgia, headache, [...] in the left temporal lobe. 05/10/24: Carbo/premetrexed C1. Pembro held due to insurance denial with plan to appeal. HPI Mr Pickering is a 43 y.o. [...] larynx, no concerning lesions in the OP, PRODUCE SHIPPER or HP. CT scan from 04/02/2024 reviewed [...] and transbronchial biopsy: Adenocarcinoma Interval history 05/10/24: Zen presents today to begin treatment with carboplatin/premetrexed/pembrolizumab. Today is C1. Pembrolizumab will be held due to insurance denial. He is seen today with his for chemo teach. He has persistent and chronic dyspnea, intermittent chest discomfort, chest tightness like not able to take a deep breath positional dyspnea and difficulty lying down when sleeping and this is all stable. He has L shoulder discomfort which is stable. Tylenol helps. He stopped using advil a couple days ago. He denies the need for stronger pain medications. The patient denies any new headaches, any new numbness or weakness, any new chest pain or abdominal pain. No bowel changes or extremity swelling or edema. The remainder of his review of systems reviewed and is negative. PMH: Past Medical History: Diagnosis Date Asthma Raynaud's disease Tonsil cancer Social history: He is . Has 3 children. Family Hx: No family history on file. Physical exam: Patient Vitals for the past 24 hrs: Temp Pulse Resp BP SpO2 05/10/24 0920 36.3 ??C (97.3 ??F) 77 18 133/89 100 % Deferred for discussion General: well nourished adult, NAD Imagin04/23/24: PET/Ct showed IMPRESSION 1. Large FDG [...] 0.8 cm in the left temporal lobe. Labs: 05/10/24: WBC 7.56, Hgb 14.9, Hct 45.1, [...] may be required with high dose steroids. #Venous access: order for port placement #CINV: Rx sent for compazine PRN #Hypothyroidism: TSH 10.14. Levothyroxine increased to 100mcg daily. Plan: Proceed with carboplatin, pemetrexed C1 today. Pembrolizumab held due to insurance authorization issues. F/u in 1 week, labs prior to visit (CBC< CMP) Referral to IR for Port placement Increase levothyroxine to 100mcg daily Continue folic acid daily Laura Stevenson APRN 60 minutes were spent on date of visit, including non-face to face time. documented in this encounter Miscellaneous Notes * Addendum Note - Laura Stevenson APRN - 05/10/2024 9:30 AM ESTAddended by: LAURA STEVENSON on: 05/10/2024 03:49 PM Modules accepted: Orders documented in this encounter Plan of Treatment Upcoming Encounters Date Type Department Care Team (Late st Contact Info) Description 05/31/2024 11:30 AM EST Office Visit Hematology/Oncolog y at [address] [phone] Tej Tipton MD [facility] DR HEMATOLOGY & [place] [address] Laura Stevenson APRN [facility] [place] [address] 06/01/2024 10:30 AM EST Scheduled View Only [place] [phone] 06/01/2024 11:00 AM EST Office Visit [place] [phone] Luis E Chin MD [facility] [place] [address] 06/04/2024 8:30 AM EST Hospital Encounter [place] [phone] Rayshawn Suresh MD [facility] [place] [address] 06/04/2024 8:30 AM EST - 06/04/2024 1:05 PM EST Surgery [place] [address] Rayshawn Suresh MD [facility] [place] [address] @THORACOSCOPY, SURG; W PLEURODESIS (WRVU 10.83) Scheduled Orders Name Type Priority Associated Diagnoses Orde r Schedule IR Mediport Placement Imaging Routine Adenocarcinoma of lung, right Expected: 05/11/2024, Expires: 11/10/2024 Scheduled Procedures Name Priority Associated Diagnoses Date/Ti me @THORACOSCOPY, SURG; W PLEURODESIS (WRVU 10.83) metastatic pleural effusion 06/04/2024 8:30 AM EST BRONCHOSCOPY, DIAGNOSTIC (WRVU 2.53) metastatic pleural effusion 06/04/2024 8:30 AM EST DIONNA\ALMA.CATHETER,TUNNELED, WITH SQ PORT OR PUMP OVER 5YR (WRVU 5.79) metastatic pleural effusion 06/04/2024 8:30 AM EST documented as of this encounter Visit Diagnoses Diagnosis Adenocarcinoma of lung, right High risk medication use Encounter for long-term (current) use of other medications Hypothyroidism, unspecified type documented in this encounter Care Teams Grease Man Relationship Specialty Start Date End Date Jose Angel Hopkins MD [address] [place] [address] [place] [phone] PCP - General Family Medicine 04/08/24 documented as of this encounter
--- OUTSIDE RECORDS SUMMARY | 2024-05-31 01:20 | XMS_ITS | Encounter Summary ---
Author Organization [facility] Address [facility] [place] [address] Care Team Providers Care Head Of Integrated Media Name Role Phone Jose Angel Hopkins MD Primary Care Provider [phone] Reason for Referral * Consultation (Urgent) - Authorized Specialty Diagnoses / Procedures Referred By Contac t Referred To Contact Radiation Oncology Diagnoses Adenocarcinoma of lung, right Tej Tipton MD [facility] [place] [address] Jose Martin Rae MD [facility] [place] [address] Referral ID Status Reason Start Date Expiration Date Visits Requested Visits Authorized [id number] Authorized Consult, Test & Treat 05/03/2024 05/03/2025 1 1 Encounter Details Date Type Department Care Team (Late st Contact Info) Description 05/03/2024 3:00 PM EST Office Visit Hematology/Oncology at [address] [phone] Tej Tipton MD [address] [facility] HEMATOLOGY & [place] [address] Stacy Valle APRN [facility] [place] [address] Adenocarcinoma of lung, right (Primary Dx); High risk medication use Social History Tobacco Use Types Packs/Day Years [...] Sign Reading Time Taken Comments Blood Pressure 152/94 05/03/2024 2:55 PM EST Pulse 112 05/03/2024 2:55 PM EST Temperature 36.6 ??C (97.8 ??F) 05/03/2024 2:55 PM ES T Respiratory Rate 18 05/03/2024 2:55 PM EST Oxygen Saturation 98% 05/03/2024 2:55 PM EST Inhaled Oxygen Concentration - - Weight 81.8 kg (180 lb 6.4 oz) 05/03/2024 2:55 P M EST Height 172.7 cm (5' 7.99) 05/03/2024 2:55 PM ES T Body Mass Index 27.44 05/03/2024 2:55 PM EST documented in this encounter Progress Notes * Tej Tipton MD - 05/03/2024 3:00 PM EST Oncology Outpatient Clinic Note Patient [...] lung mass, 04/15/2024 RLL bx - adeno ca; [id number]: p53 mutation; CancerSeq RNA: TP53 mut, AUGUST stable TMB low; PD-L1 less than 1% ; ; pulmonary, bone and brain metastases; stage IV T4,N2,M1 Anticipate systemic treatment with immunotherapy pembrolizumab, carboplatin and pemetrexed. 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 Note is also a right-sided pleural effusion as well as what appears to be small volume metastatic disease to the contralateral left lung. On my review the liver and the adrenal glands were clear. He returns to clinic for further workup and examination. 21 presents today with his , occasion with visual changes, but fleeting, persistent left scapular pain for which she is taking ibuprofen, unchanged dyspnea on exertion but no dysphonia or dysphagia On 04/08/2024 patient was seen by Dr. Banuelos: An in office flexible laryngoscopy voice normal s/parea irradiated oropharynx and larynx, no concerning lesions in the OP, STEAMER OPERATOR or HP. CT scan from 04/02/2024 was reviewed in person and with the patient: demonstrated a large right lower lobe mass with conglomerate extension into the right hilum and subcarinal region concerning either for primary lung cancer or metastatic disease. Note is also a right-sided pleural effusion as wellas what appears to be small volume metastatic disease to the contralateral left lung. On my review the liver and the adrenal glands were clear. 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 Pertinent Hematology History: HPI: As above Review of Systems: GENERAL HEENT CV PULM All negative All negative All negative All negative x Weight loss - Headache x Chest Pain - Non-productive cough Weight gain - Vision change Palpitations - Productive cough - Fevers Sinus congestion Orthopnea Wheezing Chills - Hoarseness LE edema - Hemoptysis Night sweats Epistaxis PND Pleuritic pain Fatigue - Syncope x SOB Claudication [facility] END[facility] GI All negative x All negative All negative x All negative x Arthralgias Frequency Heat intolerance Blood in stool Myalgias Urgency Cold intolerance Dysphagia Weakness Hematuria Polydipsia Odynophagia Stiffness Flank pain Polyphagia Abdominal discomfort x L shoulder pain Dysuria Cushingoid Constipation Foamy urine x Thyroid d Diarrhea Discharge Nausea/Vomiting LYMPH SKIN NEURO PSYCH x All negative x All negative x All negative x All negative Swollen nodes Rash Seizures Depressed affect Tender nodes Ulcers Tremors Occupational stress Diffuse nodes Bruising Spasticity Anxiety Local nodes Tanned skin Focal weakness Insomnia Night sweats Telangiectasias Diplopia Paresthesias Dizziness Social Hx: Social History Socioeconomic History Marital status: Spouse name: None Number of children: None Years of education: None Highest education level: None Occupational History None Tobacco Use Smoking status: Never Smokeless tobacco: Never Vaping Use Vaping status: Never Used Substance and Sexual Activity Alcohol use: Yes Alcohol/week: 1.0 standard drink of alcohol Types: 1 Cans of beer per week Comment: occaional Drug use: Never Sexual activity: None Other Topics Concern None Social History Narrative . Three children, Twins (boy and girl 9 years old) , two year old female. 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 Exam: Patient Vitals for the past 24 hrs: Temp Pulse Resp BP SpO2 05/03/24 1455 36.6 ??C (97.8 ??F) (!) 112 18 (!) 152/94 98 % General: well nourished adult, NAD, HEENT: Normocephalic, Tympanic membranes had no effusions, No sinus tenderness Lymph: no submandibular, posterior auricular, cervical or supraclavicular LN CVS: S1 S2 RRR, No M/R/G Resp: Significant decreased breath sounds and dullness in the right lower lung field Abd: NT/ND, no appreciable organomegaly Extremities:no pitting edema Skin:no appreciable rashes, ulcers or brusing Neuro: completely oriented to situation and space, grossly intact motor, moving all 4 extremities Labs: 04/19/24: WBC 9.8 hemoglobin 14.5 hematocrit 43 platelet count 308,000, LDH 164, sodium 137 potassium 4.2 alkaline phosphatase normal liver function test normal, Ca++ nl Radiology: 04/27/2024: PET Large, FDG avid conglomerate mass involving the right lower and right middle lobe, right hilum, right subcarinal region consistent with primary lung malignancy Metabolic active pulm metastases, associated moderate right pleural effusion Metabolically active lymph node metastases involving the mediastinum, right hilum, right internal mammary and right pericardial lymph nodes Metabolically active osseous metastases of the left scapula and fourth rib 05/01/24 MRI brain; 4 enhancing intra-axial metastasis identified largest 0.8 cm left temporal lobe Assessment: 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 New onset dyspnea, CP and large R lower lung mass, 04/15/2024 RLL bx - adeno ca; PDL <1%; [id number]: p53 mutation; CancerSeq RNA: TP53 mut, AUGUST stable, TMB low; pulmonary, bone and brain metastases; stage IV T4,N2,M1 3. Anticipate systemic treatment with immunotherapy pembrolizumab, carboplatin and pemetrexed. Premedicated B12, folic acid; urgent radiation oncology consultation for brain metastases with consideration given to her SRS to be sandwiched between chemotherapy This is a 43-year-old male patient, never smoker with history treated with stage III, high risk, HPV positive head and neck cancer 1999. The patient was treated with standard a combined modality definitive radiation and concurrent, radiosensitizing chemotherapy with cisplatin total dose 280 mg/m2; initial f/u HILARIO. The patient presents since the summer with progressive dyspnea, dyspnea on exertion, chest tightness, nonresponse to 2 courses of antibiotics, currently on prednisone [address] radiographic findings of a large, right lower lobe mass lesion, conglomerate extending into the right hilum and subcarinal lesion with pleural effusion and imaging evidence for metastatic disease to the contralateral left lung. I had reviewed all of the above findings with the patient patient Mykel Patel presents today for follow-up with persistent dyspnea dyspnea when recumbent and her resistanceto taking a deep breath. I reviewed the bronchoscopy results from 04/15/2024. The findings are that of an adenocarcinoma in the right lower lobe on endobronchial and transbronchial biopsy. On IHC CK7 is positive, CK20 only patchy positive, TTF-1 is negative. NGS and PD-L1 assay was initiated. PDL< 1% I reviewed with the patient findings of PET scan demonstrating advanced, stage IV lung cancer with a dominant mediastinum invading a right lung lesion, pleural effusion, pulmonary metastases ruth metastases as well as osseous metastases. I reviewed the MRI of the brain which does demonstrate metastatic disease there with a small volumewith little edema. I reviewed with Zen and his all of these findings implication, treatment options going forward. I discussed that given the progressive dermatology urgent a treatment is indicated. To that end, I recommend a initiating systemic treatment with standard, FDA approved pemetrexed 500 mg/m??, pembrolizumab 200 mg and carboplatin AUC of 5 every 3 weeks. We will also ask our radiation oncologistto see the patient as soon as possible. The a anticipated benefit of treatment would be tumor control with reduction of symptoms and life prolongation; possible adverse effects include but not limited to, myelosuppression, risk for infection, nonresponse, skin rash, autoimmunity including autoimmune dermatitis endocrinopathies pneumonitis hepatitis nephritis enteritis myositis, at times serious and life-threatening complications, risk for infections, myelosuppression needing blood products and other side effects. After reviewing risk and benefits, the patient affirmatively agrees and consents to treatments. Emotional support and encouragement was provided Plan: Urgent radiation oncology consultation for brain metastasis CBC CMP TSH T4 on return prior to chemotherapy Consider Mediport placement , DIRECTOR MEDICAL SCIENCE follow-up in 1 week, chemotherapy teach same day B12 on return, folic acid prescription called in Tej Tipton documented in this encounter Plan of Treatment Upcoming Encounters Date Type Department Care Team (Late st Contact Info) Description 05/31/2024 11:30 AM EST Office Visit Hematology/Oncolog y at [address] [phone] Tej Tipton MD [facility] DR HEMATOLOGY & [place] [address] Stacy Valle APRN [facility] [place] [address] 06/01/2024 10:30 AM EST Scheduled View [place] [address] 06/01/2024 11:00 AM EST Office Visit [place] [address] Luis E Chin MD [facility] [place] [address] 06/04/2024 8:30 AM EST Hospital Encounter [place] [phone] Rayshawn Suresh MD [facility] [place] [address] 06/04/2024 8:30 AM EST - 06/04/2024 1:05 PM EST Surgery [place] [address] Rayshawn Suresh MD [facility] [place] [address] @THORACOSCOPY, SURG; W PLEURODESIS (WRVU 10.83) Scheduled Orders Name Type Priority Associated Diagnoses Orde r Schedule CBC (with Diff) Lab STAT Adenocarcinoma of lung, right As Needed for 12 Occurrences starting 05/03/2024 until 05/03/2025 Comprehensive metabolic panel Non-fasting Lab STAT Adenocarcinoma of lung, right As Needed for 12 Occurrences starting 05/03/2024 until 05/03/2025 TSH Lab STAT Adenocarcinoma of lung, right High risk medication use As Needed for 12 Occurrences starting 05/03/2024 until 05/03/2025 T4, free Lab STAT Adenocarcinoma of lung, right High risk medication use As Needed for 12 Occurrences starting 05/03/2024 until 05/03/2025 Scheduled Procedures Name Priority Associated Diagnoses Date/Ti me @THORACOSCOPY, SURG; W PLEURODESIS (WRVU 10.83) metastatic pleural effusion 06/04/2024 8:30 AM EST BRONCHOSCOPY, DIAGNOSTIC (WRVU 2.53) metastatic pleural effusion 06/04/2024 8:30 AM EST DIONNA\ALMA.CATHETER,TUNNELED, WITH SQ PORT OR PUMP OVER 5YR (WRVU 5.79) metastatic pleural effusion 06/04/2024 8:30 AM EST Scheduled Referrals Name Type Priority Associated Diagnoses Orde r Schedule Referral to Radiation Oncology Outpatient Referral Urgent Adenocarcinoma of lung, right Ordered: 05/03/2024 documented as of this encounter Visit Diagnoses Diagnosis Adenocarcinoma of lung, right- Primary High risk medication use Encounter for long-term (current) use of other medications documented in this encounter Care Teams Head Of Integrated Media Relationship Specialty Start Date End Date Jose Angel Hopkins MD [address] [place] [address] [place] [phone] PCP - General Family Medicine 04/08/24 documented as of this encounter
--- OUTSIDE RECORDS SUMMARY | 2024-05-31 01:20 | XMS_ITS | Encounter Summary ---
[place] [address] Care Team Providers Care Atg Java Developer Name Role Phone Jose Angel Hopkins MD Primary Care Provider Reason for Visit * Reason Comments Chemotherapy * Treatment/Therapy Plan Authorization (Routine) - Authorized Specialty Diagnoses / Procedures Referred By Contac t Referred To Contact Hematology and Oncology Diagnoses Adenocarcinoma, lung, right Tej Tipton MD [address] [facility] HEMATOLOGY & [place] [address] St Hem Onc Infusion [address] [place] [phone] Referral ID Status Reason Start Date Expiration Date V isits Requested Visits Authorized [id number] Authorized 05/03/2024 05/03/2025 99 0 Encounter Details Date Type Department Care Team (Late st Contact Info) Description 05/10/2024 10:30 AM EST Infusion Hematology Oncology at [address] [address] Adenocarcinoma, lung, right Social History [...] as of this encounter Progress Notes * Caroline Feliciano RN - 05/10/2024 10:30 AM EST INFUSION THERAPY ADMINISTRATION NOTES DIAGNOSIS: NSCLC CYCLE #:C1D1 REASON FOR VISIT: Initiate chemotherapy SUBJECTIVE Zen offers no complaints he met with Vilma Valle APRN prior to infusion, ready for treatment. OBJECTIVE LAB DATA: completed 05/10/[address] [facility] IV ACCESS: PIV Pre administration: Chemotherapy orders independently verified for drug name, route, and dosage per patient's height, weight and BSA by Caroline Feliciano RN & staff pharmacists REACTIONS (DESCRIPTION, TIME, INTERVENTION AND EFFECTIVENESS) none ASSESSMENT Zen was awake, alert and tolerated treatment well. Pt. chemo teaching instructions included: During clinic hours (8am-5pm Friday-Friday): pt. can call [phone] with questions or concerns. After clinic hours (5pm-8am Friday-Friday and s) pt can call [phone] and ask for the clinical data associate/oncologist fire prevention specialist. Zen Pickering verbalized understanding of potential chemotherapy side effects and home care including but not limited to- handwashing to prevent infection, signs and symptoms of low blood counts (fever, fatigue, bleeding), to call with a fever of 100.4 or greater, any significant constipation/diarrhea, importance of nutrition and fluid intake (drinking at least 32-64 ounces of non-caffeinated beverages/day), mouth care. Zen Pickering verbalized understanding of how to take prescription medications given for home use after chemotherapy. PLAN Return to clinic per routine. documented in this encounter Plan of Treatment Upcoming Encounters Date Type Department Care Team (Late st Contact Info) Description 05/31/2024 11:30 AM EST Office Visit Hematology/Oncolog y at [address] [address] Tej Tipton MD [address] [facility] HEMATOLOGY & [place] [address] Stacy Valle APRN [facility] DR [place] [address] 06/01/2024 10:30 AM EST Scheduled View [place] [address] 06/01/2024 11:00 AM EST Office [place] [address] Luis E Chin MD [facility] DR [place] [address] 06/04/2024 8:30 AM EST Hospital Encounter [place] [phone] Rayshawn Suresh MD [facility] DR [place] [address] 06/04/2024 8:30 AM EST - 06/04/2024 1:05 PM EST Surgery [place] [phone] Rayshawn Suresh MD [facility] DR [place]AC[place] [address] @THORACOSCOPY, SURG; W PLEURODESIS (WRVU 10.83) Scheduled [...] MAR Action Action Date Dose Rate Site aprepitant (Cinvanti) (7.2 mg/mL) injection emulsion 130 mg 130 mg, Intravenous, Administer over 2 Minutes, ONCE, 1 dose, On Fri05/10/24 at 1145, Alternative administration of IV push over 2 minutes is a recommendation from the pediatric dermatologist. Administer prior to chemotherapy., Routine Given 05/10/2024 11:38 AM EST 130 mg CARBOplatin (Paraplatin) 523 mg in dextrose 5% 302.3 mL infusion 523 mg (rounded from 522.5 mg, Target AUC = 5), Intravenous, ONCE, 1 dose, On Fri05/10/24 at 1245, Administer over 30 Minutes, Warning Vesicant/Irritant Medication New Bag 05/10/2024 1:03 PM EST 523 mg 604.6 mL/hr dexAMETHasone (Decadron) tablet 10 mg 10 mg, Oral, ONCE, 1 dose, On Fri05/10/24 at 1215, Administer prior to chemotherapy, Routine Given 05/10/2024 11:29 AM EST 10 mg palonosetron (Aloxi) (0.05 mg/mL) injection 0.25 mg 0.25 mg, Intravenous, ONCE, 1 dose, On Fri05/10/24 at 1145, Administer over 30 seconds., Routine Given 05/10/2024 11:35 AM EST 0.25 mg PEMEtrexed disodium (Alimta) 1,000 mg in sodium chloride 0.9% 140 mL infusion 1,000 mg (500 mg/m2/dose ? 2 m2 Treatment Plan BSA from Recorded weight), Intravenous, ONCE, 1 dose, On Fri05/10/24 at 1245, Administer over 10 Minutes New Bag 05/10/2024 12:32 PM EST 1,000 mg 840 mL/hr documented in this encounter Care Teams Atg Java Developer Relationship Specialty Start Date End Date Jose Angel Hopkins MD [address] [place] [address] [place] [address] PCP - General Family Medicine 04/08/24 documented as of this encounter
--- OUTSIDE RECORDS SUMMARY | 2024-05-31 01:20 | XMS_ITS | Encounter Summary ---
Author Organization [facility] Address [facility] [place] [address] Care Team Providers Care Psychotherapist Social Worker Name Role Phone Jose Angel Hopkins MD Primary Care Provider [phone] Reason for Visit * Reason Onset Date Comments Shortness of Breath 05/14/2024 SOB at rest and with ambulation Encounter Details Date Type Department Care Team (Late st Contact Info) Description 05/14/2024 Telephone Hematology/Oncology at [address] [phone] Macy Power RN Shortness of Breath (SOB at rest and with ambulation) Social History Tobacco Use Types Packs/Day Years [...] encounter Miscellaneous Notes * Telephone Encounter - Macy Power RN - 05/14/2024 12:22 PM EST ED provider spoke with Dr. Tipton. Large pleural effusion. Plan to drain and admit. Triage to check on Zen on Wednesday 05/17. * Telephone Encounter - Macy Power RN - 05/14/2024 8:45 AM EST Reason for Call: Shortness of Breath (SOB at rest and with ambulation) Past medical history which may be related to reason for call: Zen started treatment for lung cancer on 05/11 with carbo/alimta and Pembro on 05/12. Hx of tonsil cancer Nursing Assessment: Alfonso reports SOB at rest and with ambulation it started yesterday and seems worse this morning. He has an albuterol inhaler that he uses PRN but that is not helping much. Nauseaa bit improved since yesterday. Disposition: Discussed with Dr. Tipton and Dr. Tipton called to check on Zen. Dr. Tipton would like Zen to go to the ED for evaluation of ? Disease progression/effusion and PE rule out. Worsening Symptoms: ED visit- will go to [facility] now. Report called and last office note faxed. Patient care advice summary and review: Zen is agreeable with the plan and will go to [facility] ED. carpet renovator will keep an eye on his chart and check in after or Friday depending on timing. documented in this encounter Plan of Treatment Upcoming Encounters Date Type Department Care Team (Late st Contact Info) Description 05/31/2024 11:30 AM EST Office Visit Hematology/Oncolog y at [address] [address] Tej Tipton MD [address] [facility] HEMATOLOGY & [place] [address] Stacy Valle APRN [facility] [place] [address] 06/01/2024 10:30 AM EST Scheduled View [place] [phone] 06/01/2024 11:00 AM EST Office [place] [phone] Luis E Chin MD [facility] [place] [address] 06/04/2024 8:30 AM EST Hospital Encounter [place] [phone] Rayshawn Suresh MD [facility] [place] [address] 06/04/2024 8:30 AM EST - 06/04/2024 1:05 PM EST [place] [phone] Rayshawn Suresh MD [facility] [place] [address] @THORACOSCOPY, SURG; W PLEURODESIS (WRVU 10.83) Scheduled [...] on filedocumented in this encounter Care Teams Psychotherapist Social Worker Relationship Specialty Start Date End Date Jose Angel Hopkins MD [address] [place] [address] [place] [phone] PCP - General Family Medicine 04/08/24 documented as of this encounter
--- OUTSIDE RECORDS SUMMARY | 2024-05-31 01:20 | XMS_ITS | Encounter Summary ---
Author Organization [facility] [place] [address] Care Team Providers Care Wood Floor Refinisher Name Role Phone Jose Angel Hopkins MD Primary Care Provider [phone] Encounter Details Date Type Department Care Team (Latest Contact Info) Description 05/01/2024 Travel Social History Tobacco Use Types Packs/Day [...] AM EST Office Visit Hematology/Oncolog y at [address] [phone] Tej Tipton MD [facility]0 [facility] DR HEMATOLOGY & [place] [address] Stacy Valle APRN [facility] [place] [address] 06/01/2024 10:30 AM EST Scheduled View [place] [phone] 06/01/2024 11:00 AM EST Office Visit [place] [phone] Luis E Chin MD [facility] [address] 06/04/2024 8:30 AM EST Hospital Encounter [place] [phone] Rayshwan Suresh MD [facility] [place] [address] 06/04/2024 8:30 AM EST - 06/04/2024 1:05 PM EST Surgery [place] [phone] Rayshawn Suresh MD [facility] [place] [address] @THORACOSCOPY, SURG; W PLEURODESIS (WRVU 10.83) Scheduled [...] on filedocumented in this encounter Care Teams Wood Floor Refinisher Relationship Specialty Start Date End Date Jose Angel Hopkins MD [address] [place] [address] [place] [phone] PCP - General Family Medicine 04/08/24 documented as of this encounter
--- OUTSIDE RECORDS SUMMARY | 2024-05-31 01:20 | XMS_ITS | Encounter Summary ---
[place] [address] Care Team Providers Care Hairspring Staker Name Role Phone Jose Angel Hopkins MD Primary Care Provider [phone] Encounter Details Date Type Department Care Team (Late Contact Info) Description 05/05/2024 Orders Only Hematology [place] [address] Tej Tipton MD [address] [facility] HEMATOLOGY & [place] [address] Social History Tobacco Use Types Packs/Day Years Used Date Smoking Tobacco: Never Smokeless Tobacco: Never Alcohol Use Standard Drinks/Week Comments Yes 1 (1 standard drink = 0.6 oz pur e alcohol) occaional Sex and Gender Information Value Date Recorded Sex Assigned at Not on file Gender Identity Not on file Sexual Orientation Not on file documented as of this encounter Progress Notes * Tej Tipton MD - 05/05/2024 10:26 AM EST lido documented in this encounter Plan of Treatment Upcoming Encounters Date Type Department Care Team (Late Contact Info) Description 05/31/2024 11:30 AM EST Office Visit Hematology/Oncolog y at [address] [address] Tej Tipton MD [address] [facility] HEMATOLOGY & [place] [address] [facility] [place] [address] 06/01/2024 10:30 AM EST Scheduled View Only Radiation Oncology at [place] [phone] 06/01/2024 11:00 AM EST Office Visit Radiation Oncology at [place] [phone] [address] [facility] [place] [address] 06/04/2024 8:30 AM EST Hospital Encounter Main Operating Room [place] [phone] [facility] [place] [address] 06/04/2024 8:30 AM EST - 06/04/2024 1:05 PM EST Surgery [place] [phone] [facility] [place] [address] @THORACOSCOPY, SURG; W PLEURODESIS (WRVU 10.83) Scheduled [...] on filedocumented in this encounter Care Teams Hairspring Staker Relationship Specialty Start Date End Date Jose Angel Hopkins MD [address] [place] [address] [place] [phone] PCP - General Family Medicine 04/08/24 documented as of this encounter
--- OUTSIDE RECORDS SUMMARY | 2024-05-31 01:20 | XMS_ITS | Encounter Summary ---
Author Organization [facility] [place] [address] Care Team Providers Care Hand Brim Ironer Name Role Phone Jose Angel Hopkins MD Primary Care Provider [phone] Encounter Details Date Type Department Care Team (Late st Contact Info) Description 05/11/2024 Telephone Hematology/Oncology at [address] [phone] Jessica Jaeger RN Social History Tobacco Use Types Packs/Day Years [...] encounter Miscellaneous Notes * Telephone Encounter - Jessica Jaeger RN - 05/11/2024 9:58 AM EST Received notification of denial for Pembrolizumab on 05/10/2024. Received call from Wilfredo Catalan customer service representative teacher today with telephone number to set up bpgq-jh-clez for appeal of denial. Phone number [phone]. Order# [id number] RN call to Wilfredo to set up urgent request for ckod-oq-jwcy. Spoke with Bethanie. Reference# [id number] to set up urgent rbij-oq-glnz to be done by Stacy Valle. Spoke with Sherry. Urgent appt set up for today at 12pm. Per Sherry, Dr. Newsome will be calling clinic for yrsb-mi-nkoo. ADDENDUM: Wpkf-iz-jqnk completed. Pembrolizumab (Keytruda) approved, valid 05/10/2024-10/04/2024. Order# [id number] Call to patient to notify him of approval. Patient will come to clinic today to receive C1D1 pembrolizumab (received C1D1 Carboplatin and Pemetrexed yesterday). Dr. Tipton updated, order placed. I also confirmed with patient that he received Vitamin B12 injection yesterday at PCP office. documented in this encounter Plan of Treatment Upcoming Encounters Date Type Department Care Team (Late st Contact Info) Description 05/31/2024 11:30 AM EST Office Visit Hematology/Oncolog y at [address] [address] Tej Tipton MD [address] [facility] DR HEMATOLOGY [place] [address] Stacy Valle APRN [facility] [place] [address] 06/01/2024 10:30 AM EST Scheduled View [place] [phone] 06/01/2024 11:00 AM EST Office [place] [phone] Luis E Chin MD [facility] DR [place] [address] 06/04/2024 8:30 AM EST Hospital Encounter [place] [phone] Rayshawn Suresh MD [facility] [place] [address] 06/04/2024 8:30 AM EST - 06/04/2024 1:05 PM EST Surgery [place] [address] Rayshawn Suresh MD [facility] DR [place] [address] @THORACOSCOPY, SURG; W PLEURODESIS (WRVU 10.83) Scheduled [...] on filedocumented in this encounter Care Teams Hand Brim Ironer Relationship Specialty Start Date End Date Jose Angel Hopkins MD [address] [place] [address] [place] [phone] PCP - General Family Medicine 04/08/24 documented as of this encounter
--- OUTSIDE RECORDS SUMMARY | 2024-05-31 01:20 | XMS_ITS | Encounter Summary ---
Author Organization [facility] [place] [address] Care Team Providers Care Vice President Talent Management Name Role Phone Jose Angel Hopkins MD Primary Care Provider [phone] Encounter Details Date Type Department Care Team (Late Contact Info) Description 04/23/2024 Notes Only Hematology [place] [phone] Jana Peter, RN Social History Tobacco Use Types Packs/Day [...] as of this encounter Progress Notes * Jana Peter, RN - 04/23/2024 2:04 PM EST Test requisition form, pt demographics/insurance and lab specimens collected and shipped to [employer], [facility] [employer] Tracking [id number] documented in this encounter Plan of Treatment Upcoming Encounters Date Type Department Care Team (Late st Contact Info) Description 05/31/2024 11:30 AM EST Office Visit Hematology/Oncolog y at [address] [phone] Tej Tipton MD [address] [facility] [place] [address] Stacy Valle APRN [facility] [place] [address] 06/01/2024 10:30 AM EST Scheduled View Only Radiation Oncology at [place] [address] 06/01/2024 11:00 AM EST Office Visit Radiation Oncology at [address] Luis E Chin MD [facility] [place] [address] 06/04/2024 8:30 AM EST Hospital Encounter Main Operating Room [place] [phone] Rayshawn Suresh MD [facility] [place] [address] 06/04/2024 8:30 AM EST - 06/04/2024 1:05 PM EST Surgery Main Operating Room [place] [phone] Rayshawn Suresh MD [facility] [place] [address] @THORACOSCOPY, SURG; W PLEURODESIS (WRVU 10.83) Scheduled [...] on filedocumented in this encounter Care Teams Vice President Talent Management Relationship Specialty Start Date End Date Jose Angel Hopkins MD [address] [place] [address] [place] [phone] PCP - General Family Medicine 04/08/24 documented as of this encounter
--- OUTSIDE RECORDS SUMMARY | 2024-05-31 01:20 | XMS_ITS | Encounter Summary ---
Author Organization [facility] Address [facility] [place] [address] Care Team Providers Care Student Accounts Coordinator Name Role Phone Jose Angel Hopkins MD Primary Care Provider [phone] Encounter Details Date Type Department Care Team (Late st Contact Info) Description 05/16/2024 Telephone Hematology [place] [phone] John Bobby MD [facility] DR HEMATOLOGY/[place] [address] Social History Tobacco Use Types Packs/Day Years Used Date Smoking Tobacco: Never Smokeless Tobacco: Never Alcohol Use Standard Drinks/Week Comments Yes 1 (1 standard drink = 0.6 oz pur e alcohol) occaional Sex and Gender Information Value Date Recorded Sex Assigned at Not on file Gender Identity Not on file Sexual Orientation Not on file documented as of this encounter Progress Notes * John Bobby MD - 05/16/2024 8:52 PM EST I received a page from Zen's , Janett. 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 Janett notes that Zen was recently at a local hospital (per chart review it appears [facility]) due to shortness of breath; this visit uncovered pleural effusions which were drained (2-3L). He felt better after this. In the interim, he has not had return of SOB, and further Janett denies Zen having any chest pain, cough, N/V, abdominal pain, or diarrhea. However, about one hour prior to our phone call, Zen felt cold and chills and therefore Janett checked his temperature, which was 100.4. She rechecked this and it was the same, therefore leading tothe call today. Given the consistent elevated temperature, I think it is worth an ED visit. Janett agreed and will take him to their nearest ED. documented in this encounter Plan of Treatment Upcoming Encounters Date Type Department Care Team (Late st Contact Info) Description 05/31/2024 11:30 AM EST Office Visit Hematology/Oncolog y at [address] [address] Tej Tipton MD [facility] DR HEMATOLOGY & [place] [address] Stacy Valle APRN [facility] [place] [address] 06/01/2024 10:30 AM EST Scheduled View Only [place] [address] 06/01/2024 11:00 AM EST Office Visit [place] [phone] Luis E Chin MD [facility] DR [place] [address] 06/04/2024 8:30 AM EST Hospital Encounter [place] [phone] Rayshawn Suresh MD [facility] DR [place] [address] 06/04/2024 8:30 AM EST - 06/04/2024 1:05 PM EST Surgery [place] [address] Rayshawn Suresh MD [facility] DR [place] [address] @THORACOSCOPY, SURG; W PLEURODESIS (WRVU 10.83) Scheduled [...] on filedocumented in this encounter Care Teams Student Accounts Coordinator Relationship Specialty Start Date End Date Jose Angel Hopkins MD [address] [place] [address] [place] [phone] PCP - General Family Medicine 04/08/24 documented as of this encounter
--- OUTSIDE RECORDS SUMMARY | 2024-05-31 01:20 | XMS_ITS | Encounter Summary ---
Author Organization [facility] Address [facility] [place] [address] Care Team Providers Care Chucker Name Role Phone Jose Angel Hopkins MD Primary Care Provider [phone] Encounter Details Date Type Department Care Team (Late Contact Info) Description 05/12/2024 Telephone Hematology/Oncology at [address] [phone] Dai Haley Social History Tobacco [...] * Telephone Encounter - Dai Haley - 05/12/2024 12:03 PM EST I called lynda to let him know that we were able to change his appt on 05/17 to 2pm with labs 1 hour prior. He is aware of the time change documented in this encounter Plan of Treatment Upcoming Encounters Date Type Department Care Team (Late Contact Info) Description 05/31/2024 11:30 AM EST Office Visit Hematology/Oncolog y at [address] [address] Tej Tipton MD 2300 [facility] HEMATOLOGY & [place] [address] Stacy Valle APRN [facility] [place] [address] 06/01/2024 10:30 AM EST Scheduled View Only Radiation Oncology at [place] [phone] 06/01/2024 11:00 AM EST Office Visit Radiation Oncology at [place] [phone] Luis E Chin MD [facility] DR [place] [address] 06/04/2024 8:30 AM EST Hospital Encounter Main Operating Room [place] [phone] Rayshawn Suresh MD [facility] DR [place] [address] 06/04/2024 8:30 AM EST - 06/04/2024 1:05 PM EST Surgery [place] [phone] Rayshawn Suresh MD [facility] DR [place] [address] @THORACOSCOPY, SURG; W PLEURODESIS (WRVU 10.83) Scheduled [...] on filedocumented in this encounter Care Teams Chucker Relationship Specialty Start Date End Date Jose Angel Hopkins MD [address] [place] [address] [place] [phone] PCP - General Family Medicine 04/08/24 documented as of this encounter
--- OUTSIDE RECORDS SUMMARY | 2024-05-31 01:20 | XMS_ITS | Encounter Summary ---
Author Organization [facility] Agustina [place] [address] Care Team Providers Care Director Construction Services Name Role Phone Jose Angel Hopkins MD Primary Care Provider [phone] Encounter Details Date Type Department Care Team (Late Contact Info) Description 05/11/2024 Orders Only Hematology/Oncology at [address] [address] Stacy Valle APRN [facility] [place] [address] Adenocarcinoma, lung, right; Tonsil cancer Social History [...] AM EST Office Visit Hematology/Oncolog y at [address] [address] Tej Tipton MD [address] [facility] HEMATOLOGY & [place] [address] Stacy Valle APRN [facility] DR [place] [address] 06/01/2024 10:30 AM EST Scheduled View [place] [phone] 06/01/2024 11:00 AM EST Office [place] [address] Luis E Chin MD [facility] [place] [address] 06/04/2024 8:30 AM EST Hospital Encounter Main Operating Room [place] [phone] Rayshawn Suresh MD [facility] [place] [address] 06/04/2024 8:30 AM EST - 06/04/2024 1:05 PM EST Surgery [place] [address] Rayshawn Suresh MD [facility] [place] [address] @THORACOSCOPY, SURG; W PLEURODESIS (WRVU 10.83) Scheduled Orders Name Type Priority Associated Diagnoses Orde r Schedule Miscellaneous Lab request Lab Routine Tonsil cancer Every 3 weeks for 17 Occurrences starting 05/11/2024 until 05/11/2025 Scheduled Procedures Name Priority Associated Diagnoses Date/Ti [...] tonsil documented in this encounter Care Teams Director Construction Services Relationship Specialty Start Date End Date Jose Angel Hopkins MD [address] [place] [address] [place] [phone] PCP - General Family Medicine 04/08/24 documented as of this encounter
--- OUTSIDE RECORDS SUMMARY | 2024-05-31 01:20 | XMS_ITS | Encounter Summary ---
[place] [address] Care Team Providers Care Windows Server Specialist Name Role Phone Jose Angel Hopkins MD Primary Care Provider [phone] Reason for Referral * Diagnostic Test (Routine) - Closed Specialty Diagnoses / Procedures Referred By Contac t Referred To Contact Radiology Diagnoses Adenocarcinoma of lung, right Procedures MRI Brain wwo Contrast (Generic) Stacy Valle APRN [facility] [place] [address] [place] [address] Referral ID Status Reason Start Date Expiration Date V isits Requested Visits Authorized [id number] Closed Specialty Service Requested 04/29/2024 10/27/2025 1 1 Reason for Visit * Diagnostic Test (Routine) - Closed Specialty Diagnoses / Procedures Referred By Contac t Referred To Contact Radiology Diagnoses Adenocarcinoma of lung, right Procedures MRI Brain wwo Contrast (Generic) Stacy Valle APRN [facility] [place] [address] [place] [address] Referral ID Status Reason Start Date Expiration Date V isits Requested Visits Authorized [id number] Closed Specialty Service Requested 04/29/2024 10/27/2025 1 1 Encounter Details Date Type Department Care Team (Latest Contact Info) Description 05/01/2024 7:07 AM EST - 05/01/2024 11:59 PM EST Hospital [place] [address] Stacy Valle APRN [facility] [place] [address] Adenocarcinoma of lung, right Discharge Disposition: Home Social History Tobacco Use [...] spasm, # 20 tab, 0 Refill(s), Pharmacy: [facility] #[id number] 10/14/2022 Ibuprofen 200 mg Capsule Take [...] EST Office Visit Hematology/Oncolog y at [address] [address] Tej Tipton MD [facility] HEMATOLOGY & [place] [address] Stacy Valel APRN [facility] [place] [address] 06/01/2024 10:30 AM EST Scheduled View Only Radiation Oncology at [place] [phone] 06/01/2024 11:00 AM EST Office [place] [phone] Luis E Chin MD [facility] DR [place] [address] 06/04/2024 8:30 AM EST Hospital Encounter [place] [address] Rayshawn Suresh MD [facility] DR [place] [address] 06/04/2024 8:30 AM EST - 06/04/2024 1:05 PM EST Surgery [place] [address] Rayshawn Suresh MD [facility] DR [place] [address] @THORACOSCOPY, SURG; W PLEURODESIS (WRVU 10.83) Scheduled [...] Procedure Name Priority Date/Time Associated Diagnosis Comments MRI BRAIN WWO CONTRAST (GENERIC) Routine 05/01/2024 8:05 AM EST Adenocarcinoma of lung, right documented in this encounter Results * MRI Brain wwo Contrast (Generic) (05/01/2024 8:05 AM EST) WORKSTATION ID [id number] RAD Anatomical Region Laterality Modality Head Magnetic [...] who have questions please contact the health home care giver that requested your imaging first. ? Narrative 05/01/2024 1:12 PM EST EXAMINATION: MRI [...] IV adeno ca of the lung; r/obrain mets, JR C34.91, Malignant neoplasm of unspecified [...] patients who have questions please contactthe health home care giver that requested your imaging first. Stacy Valle FULLER BRUSH WORKER IMG MRI ORDERABLES documented in this encounter Visit Diagnoses Diagnosis Adenocarcinoma of lung, right documented in this encounter Administered Medications Inactive Administered Medications - up to 3 most recent administrations Medication Order MAR Action Action Date Dose Rate Site gadoterate meglumine (Dotarem) (0.5 mMol/mL) injection solution 0-100 mL 0-100 mL, Intravenous, ONCE PRN, 1 dose, Starting on 05/01/24 at 0752, Until 05/01/24 at 0753, Per Protocol, Radiology Contrast, Routine Given 05/01/2024 7:53 AM EST 16 mLs documented in this encounter Care Teams Windows Server Specialist Relationship Specialty Start Date End Date Jose Angel Hopkins MD [address] [place] [address] [place] [phone] PCP - General Family Medicine 04/08/24 documented as of this encounter
--- OUTSIDE RECORDS SUMMARY | 2024-05-31 01:20 | XMS_ITS | Encounter Summary ---
Author Organization [facility] Address [facility] [place] [address] Care Team Providers Care New Account Interviewer Name Role Phone Jose Angel Hopkins MD Primary Care Provider [phone] Encounter Details Date Type Department Care Team (Late st Contact Info) Description 05/10/2024 Notes [place] [phone] Michi Hernandez PA [facility] DR [place] [address] Social History Tobacco Use Types Packs/Day Years Used Date Smoking Tobacco: Never Smokeless Tobacco: Never Alcohol Use Standard Drinks/Week Comments Yes 1 (1 standard drink = 0.6 oz pur e alcohol) occaional Sex and Gender Information Value Date Recorded Sex Assigned at Not on file Gender Identity Not on file Sexual Orientation Not on file documented as of this encounter H&P Notes * Michi Hernandez PA - 05/10/2024 1:41 PM EST Interventional Radiology Focused Pre-procedure H&P: PCP: Jose Angel Hopkins MD Procedure indication: Lung adenocarcinoma, chcf durable venous access for chemotherapy IR workflow: Procedure request received through Interventional Radiology eDH order queue. History of present illness: Per chart review, Zen Pickering is a 43 y.o. male who presents to Interventional Radiology to undergo chest port implant. This is a patient with diagnosis of lung cancer. Planning for systemic chemotherapy. Next infusion TBD. 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 Chest port removed July 2020. Remainder of patient's medical and surgical history, allergies, medications, and social/family history obtained below as previously outlined in patient's medical record. IR history: As above Assessment: 43 y.o. male with diagnosis of new lung cancer presenting to Interventional Radiology for port implant. Plan Planned procedure: Chest port Labs to be performed day of procedure: No labs Sedation: Moderate (Conscious sedation) Prophylactic antibiotic : None Contrast: No contrast Additional medications for procedure: Lidocaine Position: Supine Consent: Pending Medications to discontinue (and days held): None Cytopathology presence needed: No Case Urgency:: G1-Elective Outpatient intervention within 4-7 days Labs: Lab Results Component Value Date HGB 13.2 (L) 07/20/2020 HCT 37.6 (L) 07/20/2020 WBC 3.3 (L) 07/20/2020 PLATELET 206 07/20/2020 BUN 17 07/20/2020 CREATININE 1.07 07/20/2020 ALBUMIN 4.6 07/20/2020 BILITOT 0.7 07/20/2020 AST 24 07/20/2020 ALT 24 07/20/2020 ALKPHOS 75 07/20/2020 Allergies: Patient has no known allergies. Medications: Current Outpatient Medications on File Prior to Visit Medication Sig Dispense Refill levothyroxine (Synthroid) 100 mcg tablet Take 1 tablet by mouth daily. 90 tablet 3 prochlorperazine (Compazine) 10 mg tablet Take 1 tablet by mouth every 6 hours as needed. 30 tablet3 lidocaine (Lidoderm) 5% Adhesive Patch, Medicated Apply 1 patch onto the skin daily. (leave on for 12 hours and remove for 12 hours) 30 patch 0 folic acid (Vitamin B9) 1 mg tablet Take 1 tablet by mouth daily. 90 tablet 3 folic acid (Vitamin B9) 1 mg tablet Take 1 tablet by mouth daily. 90 tablet 3 rosuvastatin (Crestor) 20 mg tablet Take 1 tablet by mouth Daily at Noon. venlafaxine XR (Effexor-XR) 75 mg ER 24 hr capsule Take 75 mg by mouth daily. cyclobenzaprine (Flexeril) 10 mg tablet See Instructions, PRN as needed for muscle spasm, one po qhs prn spasm, # 20 tab, 0 Refill(s), Pharmacy: [facility] #[id number] [DISCONTINUED] levothyroxine (Synthroid) 75 mcg tablet Take 1 tablet by mouth daily. (Patient taking differently: Take 88 mcg by mouth daily.) 90 tablet 3 Ibuprofen 200 mg Capsule Take 600 mg by mouth every 6 hours as needed. amLODIPine-benazepril (LOTREL) 5-10 mg Capsule Take 1 capsule by mouth daily as needed. albuteroL 90 mcg/actuation HFA Aerosol Inhaler Inhale 2 puffs into the lungs every 4 hours as needed for Wheezing. Use with spacer Current Facility-Administered Medications on File Prior to Visit Medication Dose Route Frequency Provider Last Rate Last Admin [COMPLETED] aprepitant (Cinvanti) (7.2 mg/mL) injection emulsion 130 mg 130 mg Intravenous Once Tej Tipton MD 130 mg at 05/10/24 1138 [COMPLETED] palonosetron (Aloxi) (0.05 mg/mL) injection 0.25 mg 0.25 mg Intravenous Once Tej Tipton MD 0.25 mg at 05/10/24 1135 [COMPLETED] dexAMETHasone (Decadron) tablet 10 mg 10 mg Oral Once Tej Tipton MD 10 mg at 05/10/24 1129 [COMPLETED] CARBOplatin (Paraplatin) 523 mg in dextrose 5% 302.3 mL infusion 523 mg Intravenous Once Tej Tipton MD Stopped at 05/10/24 1335 [COMPLETED] PEMEtrexed disodium (Alimta) 1,000 mg in sodium chloride 0.9% 140 mL infusion 500 mg/m2/dose (Treatment Plan Recorded) Intravenous Once Tej Tipton MD Stopped at 05/10/24 1245 lidocaine (Xylocaine) 4 % (40 mg/mL) solution Topical (Top) Once PRN Jose Martin Rae MD Past medical/surgical history: Patient Active Problem List Diagnosis Code 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 Raynaud's syndrome I73.00 Dysphagia, oropharyngeal phase R13.12 Aspiration pneumonia of right lower lobe J69.0 Dehydration E86.0 Choking due to phlegm in larynx T17.310A Drug-induced nausea and vomiting R11.2, T50.905A Adenocarcinoma, lung, right C34.91 Past Medical History: Diagnosis Date Asthma Raynaud's disease Tonsil cancer Past Surgical History: Procedure Laterality Date IR G-TUBE PLACEMENT 02/11/2020 IR G-Tube Placement 02/11/2020 Jose Angel Choi MD [facility] INTERVENTIONL RAD IR MEDIPORT PLACEMENT 02/11/2020 IR Mediport Placement 02/11/2020 Jose Angel Choi MD [facility] INTERVENTIONL RAD IR MEDIPORT REMOVAL 08/10/2020 IR Mediport Removal 08/10/2020 Marquis Crawford MD [facility] INTERVENTIONL RAD PRO [facility] EBUS GUIDED SAMPL 3/> NODE STATION/STRUX N/A 04/15/2024 BRONCH, W ENDOBRONCHIAL ULTRASOUND (EBUS) GUIDED SAMPLING, 3+ NODES (WRVU 4.96) performed by Jigar Mccabe MD at [facility] ENDOSCOPY PRO BRONCHOSCOPY, BIOPSY N/A 04/15/2024 BRONCHOSCOPY, WITH BIOPSY (WRVU 3.11) performed by Jigar Mccabe MD at [facility] ENDOSCOPY PRO BRONCHOSCOPY, TRANSBRONCH BIOPSY N/A 04/15/2024 BRONCHOSCOPY (FLEXIBLE OR RIGID) W\TRANSBRONC BX (WRVU 3.55) performed by Jigar Mccabe MD at [facility] ENDOSCOPY PRO LARYNGOSCOPY, DIRCT, OP SCOPE, BIOPSY Bilateral 01/05/2020 LARYNGOSCOPY, MICROSCOPE, WITH BIOPSY (WRVU 3.55) performed by Yrn Banuelos MD at [facility] MAIN OR PRO REMOVAL OF TONSILS, 12+ Y/O Left 01/28/2020 TONSILLECTOMY AGE 12 AND OVER (WRVU 3.45) performed by Yrn Banuelos MD at [facility] MAIN OR Social history and habits: Social History Tobacco Use Smoking status: Never Smokeless tobacco: Never Vaping Use Vaping status: Never Used Substance Use Topics Alcohol use: Yes Alcohol/week: 1.0 standard drink of alcohol Types: 1 Cans of beer per week Comment: occaional Drug use: Never Significant family history: No family history on file. Pertinent ROS: as per HPI Physical exam: Pending (to be performed in interventional radiology the day of procedure) ASA: Pending (to be assessed in interventional radiology the day of procedure) Mallampati class: Pending (to be assessed in interventional radiology the day of procedure) 05/10/2024 DANIELA Lr documented in this encounter Plan of Treatment Upcoming Encounters Date Type Department Care Team (Late st Contact Info) Description 05/31/2024 11:30 AM EST Office Visit Hematology/Oncolog y at [address] [address] Tej Tipton MD [address] [facility] HEMATOLOGY & [place] [address] Stacy Valle APRN [facility] [place] [address] 06/01/2024 10:30 AM EST Scheduled View Only [place] [address] 06/01/2024 11:00 AM EST Office Visit [place] [address] Luis E Chin MD [facility] [place] [address] 06/04/2024 8:30 AM EST Hospital Encounter [place] [address] Rayshawn Suresh MD [facility] [place] [address] 06/04/2024 8:30 AM EST - 06/04/2024 1:05 PM EST Surgery [place] [address] Rayshawn Surehs MD [facility] [place] [address] @THORACOSCOPY, SURG; W PLEURODESIS (WRVU 10.83) Scheduled [...] on filedocumented in this encounter Care Teams New Account Interviewer Relationship Specialty Start Date End Date Jose Angel Hopkins MD [address] [place] [address] [place] [address] PCP - General Family Medicine 04/08/24 documented as of this encounter
--- OUTSIDE RECORDS SUMMARY | 2024-05-31 01:20 | XMS_ITS | Encounter Summary ---
Author Organization [facility] [place] [address] Care Team Providers Care Dag Coater Name Role Phone Jose Angel Hopkins MD Primary Care Provider [phone] Encounter Details Date Type Department Care Team (Latest Contact Info) Description 05/17/2024 Travel Social History Tobacco Use Types Packs/Day [...] EST Office Visit Hematology/Oncolog y at [address] [phone] Tej Tipton MD [facility] [place] DR HEMATOLOGY [place] [address] Stacy Valle APRN [facility] [place] [address] 06/01/2024 10:30 AM EST Scheduled View [place] [phone] 06/01/2024 11:00 AM EST Office Visit [place] [address] Luis E Chin MD [facility] [place] [address] 06/04/2024 8:30 AM EST Hospital Encounter [place] [phone] Rayshawn Suresh MD [facility] [place] [address] 06/04/2024 8:30 AM EST - 06/04/2024 1:05 PM EST Surgery [place] [address] Rayshawn Suresh MD [facility] [place] [address] @THORACOSCOPY, SURG; W PLEURODESIS (WRVU 10.83) Scheduled [...] on filedocumented in this encounter Care Teams Dag Coater Relationship Specialty Start Date End Date Jose Angel Hopkins MD [address] [place] [address] [place] [phone] PCP - General Family Medicine 04/08/24 documented as of this encounter
--- OUTSIDE RECORDS SUMMARY | 2024-05-31 01:20 | XMS_ITS | Encounter Summary ---
Author Organization [facility] Address [facility] [place] [address] Care Team Providers Care Supervisor Garage Name Role Phone Jose Angel Hopkins MD Primary Care Provider [phone] Reason for Visit * Reason Onset Date Comments Shoulder Pain 05/13/2024 left Encounter Details Date Type Department Care Team (Late st Contact Info) Description 05/13/2024 Telephone Hematology/Oncology at [address] [address] Margie Page RN Shoulder Pain (left) Social History Tobacco Use Types Packs/Day Years [...] encounter Miscellaneous Notes * Telephone Encounter - Margie Page RN - 05/13/2024 10:06 AM EST Reason for Call: Shoulder Pain (left) Past medical history which may be related to reason for call: Zen is a adenocarcinoma of the right lung pt who received C1D1 carboplatin/pemetrexed on 05/10/24 and c2d1 pembrolizumab 05/11/24. Nursing Assessment: Zen is calling this morning with some nausea (resolved with meds), pain in his left shoulder (known disease there) of which he took tylenol for last night and it helped. This morning his temp is 99.9 with not signs of infection (chills/shaking/sweating). He is wondering if he can take more tylenol with the slight increase in his temp? Disposition: Review with providers via secure chat. Ok for Zen to take tylenol for shoulder pain. Worsening Symptoms: Zen is to call if he has a fever of 100.4 or higher, sign of infection or if the tylenol does not help the pain. Patient care advice summary and review: Zen understood the above instructions. documented in this encounter Plan of Treatment Upcoming Encounters Date Type Department Care Team (Late st Contact Info) Description 05/31/2024 11:30 AM EST Office Visit Hematology/Oncolog y at [address] [phone] Tej Tipton MD 2300 [facility] HEMATOLOGY & [place] [address] Stacy Valle APRN [facility] [place] [address] 06/01/2024 10:30 AM EST Scheduled View Only [place] [address] 06/01/2024 11:00 AM EST Office Visit [place] [address] Luis E Chin MD [facility] [place] [address] 06/04/2024 8:30 AM EST Hospital Encounter [place] [address] Rayshawn Suresh MD [facility] [place] [address] 06/04/2024 8:30 AM EST - 06/04/2024 1:05 PM EST Surgery [place] [address] Rayshawn Suresh MD [facility] [place] [address] @THORACOSCOPY, SURG; W PLEURODESIS (WRVU 10.83) Scheduled [...] on filedocumented in this encounter Care Teams Supervisor Garage Relationship Specialty Start Date End Date Jose Angel Hopkins MD [address] [place] [address] [place] [phone] PCP - General Family Medicine 04/08/24 documented as of this encounter
--- OUTSIDE RECORDS SUMMARY | 2024-05-31 01:20 | XMS_ITS | Encounter Summary ---
Author Organization [facility] [place] [address] Care Team Providers Care Featherer Name Role Phone Jose Angel Hopkins MD Primary Care Provider [phone] Encounter Details Date Type Department Care Team (Late Contact Info) Description 05/10/2024 Orders Only Hematology/Oncology at [address] [phone] Tej Tipton MD 2300 [facility] HEMATOLOGY & [place] [address] Social History Tobacco Use Types Packs/Day Years [...] AM EST Office Visit Hematology/Oncolog y at [address] [phone] Tej Tipton MD 2300 [facility] HEMATOLOGY & [place] [address] Stacy Valle APRN [facility] [place] [address] 06/01/2024 10:30 AM EST Scheduled View Only [place] [address] 06/01/2024 11:00 AM EST Office Visit Radiation Oncology at [place] [phone] Luis E Chin MD [facility] DR [place] [address] 06/04/2024 8:30 AM EST Hospital Encounter [place] [address] Rayshawn Suresh MD [facility] DR [place] [address] 06/04/2024 8:30 AM EST - 06/04/2024 1:05 PM EST Surgery [place] [address] Rayshawn Suresh MD [facility] DR [place] [address] @THORACOSCOPY, SURG; W PLEURODESIS (WRVU 10.83) Scheduled [...] on filedocumented in this encounter Care Teams Featherer Relationship Specialty Start Date End Date Jose Angel Hopkins MD [address] [place] [address] [place] [phone] PCP - General Family Medicine 04/08/24 documented as of this encounter
--- OUTSIDE RECORDS SUMMARY | 2024-05-31 01:20 | XMS_ITS | Encounter Summary ---
Author Organization [facility] [place] [address] Care Team Providers Care Harmonic Analyst Name Role Phone Jose Angel Hopkins MD Primary Care Provider [phone] Encounter Details Date Type Department Care Team (Latest Contact Info) Description 05/11/2024 Unscheduled Encounter Hematology/Oncology at [address] [phone] Dionna Gardner RN Adenocarcinoma, lung, right Social History Tobacco Use [...] as of this encounter Progress Notes * Dionna Gardner RN - 05/11/2024 4:02 PM EST Clinical Research Nurse Note [place], [place] Date: 05/11/24 Documentation of Informed Consent to Participate in Clinical Trial Permission to approach patient for this study was obtained by Vishal Valle APRN Study Number:[id number] Description:Immune profiling for cancer Immunotherapy response The study investigates how the profiles of the immune cells before and after treatment with immunotherapeutic medications used for cancer treatment might impact the response to the treatment. Patient was seen in private exam room and was offered the opportunity to participate in the study [id number] The protocol was reviewed with patient including description of study purpose, potential risks, side effects and uncertain benefits, voluntary nature of participation, and requirements of participation including the amount of blood that will be drawn, the potential future use of this sample and howprivate health information will be protected. Financial considerations were discussed per protocol.Specifically, there is no financial compensation provided for participation. Discussed confidentiality of patient's private health information as specified in consent form. Patient was informed that he/she may discontinue study involvement at any time; informed that declining to participate or discontinuing study treatment will not compromise his/her access to treatmentoptions or care at this institution. Patient was instructed to call the clinic triage nurse with any symptom management with his care. She/He was given the written consent form to read and review. Patient states he/she was given adequate time to review all information, and to ask questions and review concerns, all of which were answered to his/her satisfaction. Consent protocol form effective date: 05/27/2023 and expiration date 05/26/2024, was signed and datedby patient and this author. A copy of the signed consent form was given to patient. Original signed IC form was sent to Jerson LOBATO via instructional interventionist and also Emailed to him. consent was obtained prior to any study procedures being conducted Patient instructed to call clinic or provider with any questions or concerns regarding this research study. Any questions or concerns with treatment and side effects should be directed to clinic triage nurseper standard of care. A lab kit will be drawn on day 1 of each cycle. Patient verbalized understanding of these instructions and this plan. Miscellaneous lab kit draw for study Study Number:[id number] Description:Immune profiling for cancer Immunotherapy response [facility] [place] draw after obtaining consent and prior to infusion today. Date: 05/11/24 Time: 1500 [ x ] [facility] lab kit blood drawn from venipuncture performed by guide alpine [ ] medi port by guide alpine. [ ] medi port was accessed by [facility] for SOC labs earlier today. [facility] lab kit blood drawn from accessed port and flushed with 20 mls of saline per institutional policy. Specimens sent by author to : [ x ] [facility] 4th floor pathology lab in cooler via instructional interventionist [ ] Study ,via Fed ex per protocol requirements documented in this encounter Plan of Treatment Upcoming Encounters Date Type Department Care Team (Late st Contact Info) Description 05/31/2024 11:30 AM EST Office Visit Hematology/Oncolog y at [address] [phone] Tej Tipton MD [address] [facility]AT[facility] [place] [address] Stacy Valle APRN [facility] [place] [address] 06/01/2024 10:30 AM EST Scheduled View Only [place] [phone] 06/01/2024 11:00 AM EST Office Visit [place] [phone] Luis E Chin MD [facility] [place] [address] 06/04/2024 8:30 AM EST Hospital Encounter [place] [phone] Rayshawn Suresh MD [facility] [place] [address] 06/04/2024 8:30 AM EST - 06/04/2024 1:05 PM EST Surgery [place] [address] Rayshawn Suresh MD [facility] [place] [address] @THORACOSCOPY, SURG; W PLEURODESIS (WRVU 10.83) Scheduled [...] right documented in this encounter Care Teams Harmonic Analyst Relationship Specialty Start Date End Date Jose Angel Hopkins MD [address] [place] [address] [place] [phone] PCP - General Family Medicine 04/08/24 documented as of this encounter
--- OUTSIDE RECORDS SUMMARY | 2024-05-31 01:21 | XMS_ITS | Encounter Summary ---
Author Organization [facility] [place] [address] Care Team Providers Care Jet Pilot Name Role Phone Jose Angel Hopkins MD Primary Care Provider [phone] Encounter Details Date Type Department Care Team (Late Contact Info) Description 04/22/2024 Telephone Hematology/Oncology at [address] [phone] Tej Tipton MD [address] [facility] [place] [address] Social History Tobacco Use Types Packs/Day Years [...] AM EST Office Visit Hematology/Oncolog y at [address] [phone] Tej Tipton MD [address] [facility] H[facility] [place] [address] Stacy Valle APRN [facility] [place] [address] 06/01/2024 10:30 AM EST Scheduled View [place] [address] 06/01/2024 11:00 AM EST Office Visit Radiation Oncology at [place] [phone] Luis E Chin MD [facility] [place] [address] 06/04/2024 8:30 AM EST Hospital Encounter [place] [address] Rayshawn Suresh MD [facility] [place] [address] 06/04/2024 8:30 AM EST - 06/04/2024 1:05 PM EST Surgery [place] [address] Rayshawn Suresh MD [facility] [place] [address] @THORACOSCOPY, SURG; W PLEURODESIS (WRVU 10.83) Scheduled [...] on filedocumented in this encounter Care Teams Jet Pilot Relationship Specialty Start Date End Date Jose Angel Hopkins MD [address] [place] [address] [place] [phone] PCP - General Family Medicine 04/08/24 documented as of this encounter
--- OUTSIDE RECORDS SUMMARY | 2024-05-31 01:21 | XMS_ITS | Encounter Summary ---
Author Organization [facility] Address [place] [address] Care Team Providers Care Ton Container Shipper Name Role Phone Jose Angel Hopkins MD Primary Care Provider [phone] Reason for Visit * Reason Comments Follow-up Throat cancer, Mass in lung, follow CT scan Encounter Details Date Type Department Care Team (Late st Contact Info) Description 04/08/2024 1:00 PM EST Office Visit [place] [address] Yrn Banuelos MD [facility] [place] [address] Tonsil cancer Social History Tobacco Use Types Packs/Day Years Used Date Smoking Tobacco: Never Smokeless Tobacco: Never Alcohol Use Standard Drinks/Week Comments Yes 1 (1 standard drink = 0.6 oz pur e alcohol) Sex and Gender Information Value Date Recorded Sex Assigned at Not on file Gender Identity Not on file Sexual Orientation Not on file documented as of this encounter Last Filed Vital Signs Vital Sign Reading Time Taken Comments Blood Pressure - - Pulse - - Temperature - - Respiratory Rate - - Oxygen Saturation - - Inhaled Oxygen Concentration - - Weight 74.8 kg (165 lb) 04/08/2024 1:01 PM EST Height 172.7 cm (5' 8) 04/08/2024 1:01 PM EST Body Mass Index 25.09 04/08/2024 1:01 PM EST documented in this encounter Progress Notes * Yrn Banuelos MD - 04/08/2024 1:00 PM EST Subjective Patient ID: Zen Pickering is a 43 y.o. male. 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 At presentation he had nonpalable bilateral cervical adenopathy Treatment: Definitive chemoradiation (weekly cisplatin) instituted 02/29/2020; course c/b RLL pneumonia 03/21/2020; completed 04/19/2020, cumulative cisplatin 280 mg/m2 Definitive chemoradiotherapy completed 04/19/20 I have not seen this patient since 2020. 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 SInce then dyspnea has remained with activity but is still able to climb stairs. Was seen byPC and trial of inhalers appeared to make him better initially but as symptoms were lingering he was seen at [facility] where CT chest revealed a mass in the left chest. Was then referred here and met earlier with Dominique Echavarria APRN in oncology with coordinated appointments here. Plan is for PET CT as well as interventional bronch/biopsy by pulmonology next week. He denies fevers/c hills/sweats/hemoptysis/dysphagia/odynophagia/neck mass/oral bleeding. Past Medical History: Diagnosis Date Asthma Raynaud's disease Tonsil cancer Past Surgical History: Procedure Laterality Date IR G-TUBE PLACEMENT 02/11/2020 IR G-Tube Placement 02/11/2020 Jose Angel Choi MD [facility] RAD IR MEDIPORT PLACEMENT 02/11/2020 IR Mediport Placement 02/11/2020 Jose Angel Choi MD [facility] RAD IR MEDIPORT REMOVAL 08/10/2020 IR Mediport Removal 08/10/2020 Marquis Crawford MD [facility] RAD PRO LARYNGOSCOPY, DIRCT, OP SCOPE, BIOPSY Bilateral 01/05/2020 LARYNGOSCOPY, MICROSCOPE, WITH BIOPSY (WRVU 3.55) performed by Yrn Banuelos MD at [facility] MAIN OR PRO REMOVAL OF TONSILS, 12+ Y/O Left 01/28/2020 TONSILLECTOMY AGE 12 AND OVER (WRVU 3.45) performed by Yrn Banuelos MD at [facility] MAIN OR Patient Active Problem List Diagnosis Code 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 Raynaud's syndrome I73.00 Dysphagia, oropharyngeal phase R13.12 Aspiration pneumonia of right lower lobe J69.0 Dehydration E86.0 Choking due to phlegm in larynx T17.310A Drug-induced nausea and vomiting R11.2, T50.905A Current Outpatient Medications: predniSONE (Deltasone) 10 mg tablet, , Disp: , Rfl: rosuvastatin (Crestor) 20 mg tablet, Take 1 tablet by mouth Daily at Noon., Disp: , Rfl: venlafaxine XR (Effexor-XR) 75 mg ER 24 hr capsule, Take 75 mg by mouth daily., Disp: , Rfl: cyclobenzaprine (Flexeril) 10 mg tablet, See Instructions, PRN as needed for muscle spasm, one po qhs prn spasm, # 20 tab, 0 Refill(s), Pharmacy: [id number], Disp: , Rfl: levothyroxine (Synthroid) 75 mcg tablet, Take 1 tablet by mouth daily. (Patient taking differently:Take 88 mcg by mouth daily.), Disp: 90 tablet, Rfl: 3 Ibuprofen 200 mg Capsule, Take 600 mg by mouth every 6 hours as needed., Disp: , Rfl: amLODIPine-benazepril (LOTREL) 5-10 mg Capsule, Take 1 capsule by mouth daily as needed., Disp: , Rfl: albuteroL 90 mcg/actuation HFA Aerosol Inhaler, Inhale 2 puffs into the lungs every 4 hours as needed for Wheezing. Use with spacer, Disp: , Rfl: Current Facility-Administered Medications: lidocaine (Xylocaine) 4 % (40 mg/mL) solution, , Topical (Top), Once PRN, Jose Martin Rae MD No Known Allergies Review of Systems: A comprehensive Review of Systems is completed and except as noted in the HPI isnegative for constitutional, neurologic, respiratory, cardiac, vascular, immune, GI, , MSK, endocrine, skin, and functional systems which are reviewed. No family history on file. There is no pertinent family history of otolaryngology problems. Social History Socioeconomic History Marital status: Spouse name: Not on file Number of children: Not on file Years of education: Not on file Highest education level: Not on file Occupational History Not on file Tobacco Use Smoking status: Never Smokeless tobacco: Never Vaping Use Vaping status: Never Used Substance and Sexual Activity Alcohol use: Yes Alcohol/week: 1.0 standard drink of alcohol Types: 1 Cans of beer per week Drug use: Never Sexual activity: Not on file Other Topics Concern Not on file Social History Narrative . Three children, Twins (boy and girl 9 years old) , two year old female. 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 Constitutional: General: He is not in acute distress. Appearance: He is well-developed. He is not diaphoretic (well looking normal voice). HENT: Head: Normocephalic. Jaw: No trismus. Right Ear: Tympanic membrane, ear canal and external ear normal. No tenderness. No middle ear effusion. Left Ear: Tympanic membrane, ear canal and external ear normal. No tenderness. No middle ear effusion. Nose: Septal deviation (left) present. No nasal deformity or mucosal edema. Mouth/Throat: Lips: Nibbe. No lesions. Mouth: Mucous membranes are moist. No oral lesions. Dentition: Normal dentition. No dental tenderness or gum lesions. Tongue: No lesions. Pharynx: Uvula midline. No oropharyngeal exudate. Eyes: General: No scleral icterus. Conjunctiva/sclera: Conjunctivae normal. Pupils: Pupils are equal, round, and reactive to light. Neck: Thyroid: No thyroid mass or thyromegaly. Vascular: No carotid bruit. Trachea: No tracheal deviation. Pulmonary: Effort: Pulmonary effort is normal. No respiratory distress. Breath sounds: No stridor. Musculoskeletal: Cervical back: Normal range of motion and neck supple. Lymphadenopathy: Cervical: No cervical adenopathy (s/p XRT, no concernig mass/lesion noted. Good ROM). Skin: General: Skin is warm. Findings: No erythema. Neurological: Mental Status: He is alert and oriented to person, place, and time. Cranial Nerves: No cranial nerve deficit. Deep Tendon Reflexes: Reflexes are normal and symmetric. Psychiatric: Behavior: Behavior normal. Thought Content: Thought content normal. Judgment: Judgment normal. Assessment and Plan In view of the patient's symptoms and for complete evaluation, a flexible laryngoscopy is indicated. +++++++++++++++++++++++++++++++++++++++++++++++++++++++++++++++++++ Procedure: Flexible Laryngoscopy Indications: Evaluation for mucosal lesion of the upper airway Procedure and findings: The nasal mucosae are topicalized with oxymetazoline/lidocaine anesthesia. The flexible endoscope is passed through the nasal cavities and evaluation of the nasopharynx, oropharynx and larynx is performed. 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 ASSESSMENT/PLAN: Based on today's findings he presents with new concerning changes in his left chest that may represent new primary vs metastatic disease. He has been a lifetime non smoker, no other exposure to toxic fumes, active. Discussed that pathology will be most important feature to help in diagnosis and management From a H&N standpoint, there is no evidence of recurrent disease (pending PET CT). Further treatment decisions regarding the lung findings will be based on the pathology. documented in this encounter Plan of Treatment Upcoming Encounters Date Type Department Care Team (Late st Contact Info) Description 05/31/2024 11:30 AM EST Office Visit Hematology/Oncolog y at [address] [address] Tej Tipton MD [address] [facility] HEMATOLOGY [place] [address] Stacy Valle APRN [facility] [place] [address] 06/01/2024 10:30 AM EST Scheduled View Only [place] [address] 06/01/2024 11:00 AM EST Office Visit [place] [phone] Luis E Chin MD [facility] [place] [address] 06/04/2024 8:30 AM EST Hospital Encounter [place] [address] Rayshawn Suresh MD [facility] [place] [address] 06/04/2024 8:30 AM EST - 06/04/2024 1:05 PM EST Surgery [place] [address] Rayshawn Suresh MD [facility] [place] [address] @THORACOSCOPY, SURG; W PLEURODESIS (WRVU 10.83) Scheduled Procedures Name Priority Associated Diagnoses Date/Ti me @THORACOSCOPY, SURG; W PLEURODESIS (WRVU 10.83) metastatic pleural effusion 06/04/2024 8:30 AM EST BRONCHOSCOPY, DIAGNOSTIC (WRVU 2.53) metastatic pleural effusion 06/04/2024 8:30 AM EST DIONNA\ALMA.CATHETER,TUNNELED, WITH SQ PORT OR PUMP OVER 5YR (WRVU 5.79) metastatic pleural effusion 06/04/2024 8:30 AM EST documented as of this encounter Visit Diagnoses Diagnosis Tonsil cancer Malignant neoplasm of tonsil documented in this encounter Care Teams Ton Container Shipper Relationship Specialty Start Date End Date Jose Angel Hopkins MD [address] [place] [address] [place] [phone] PCP - General Family Medicine 04/08/24 documented as of this encounter
--- OUTSIDE RECORDS SUMMARY | 2024-05-31 01:21 | XMS_ITS | Encounter Summary ---
Author Organization [facility] [address] Care Team Providers Care Director Transportation Name Role Phone Romeo Tiny Lindsay APRN Primary Care Provider [phone] Encounter Details Date Type Department Care Team (Latest Contact Info) Description 06/13/2023 Travel Social History Tobacco Use Types Packs/Day [...] EST Office Visit Hematology/Oncolog y at [address] [phone] Tej Tipton MD [address] [facility] DR HEMATOLOGY [place] [address] Stacy Valle APRN [facility] [place] [address] 06/01/2024 10:30 AM EST Scheduled View [place] [address] 06/01/2024 11:00 AM EST Office Visit [place] [phone] Luis E Chin MD [facility] [place] [address] 06/04/2024 8:30 AM EST Hospital Encounter [place] [phone] Rayshawn Suresh MD [facility] [place] [address] 06/04/2024 8:30 AM EST - 06/04/2024 1:05 PM EST Surgery [place] [phone] Rayshawn Suresh MD [facility] [place] [address] @THORACOSCOPY, SURG; W PLEURODESIS (WRVU 10.83) Scheduled [...] on filedocumented in this encounter Care Teams Director Transportation Relationship Specialty Start Date End Date Tiny Walters APRN [address] [place] [phone] PCP - General Family Medicine 12/01/19 04/07/24 documented as of this encounter
--- OUTSIDE RECORDS SUMMARY | 2024-05-31 01:21 | XMS_ITS | Encounter Summary ---
Author Organization [facility] Address [facility] [place] [address] Care Team Providers Care Health And Wellness Manager Name Role Phone Tiny Walters APRN Primary Care Provider [phone] Encounter Details Date Type Department Care Team (Latest Contact Info) Description 05/22/2023 11:52 AM EST - 05/22/2023 1:20 PM EST Hospital [place] [phone] Discharge Disposition: Home Social History Tobacco Use [...] Sig Dispensed Refills Start Date End Date cyclobenzaprine (Flexeril) 10 mg tablet See Instructions, PRN as needed for muscle spasm, one po qhs prn spasm, # 20 tab, 0 Refill(s), Pharmacy: [facility] #[id number] 10/14/2022 Ibuprofen 200 mg Capsule Take 600 mg by mouth every 6 hours as needed. amLODIPine-benazepril (LOTREL) 5-10 mg Capsule Take 1 capsule by mouth daily as needed. albuteroL 90 mcg/actuation HFA Aerosol Inhaler Inhale 2 puffs into the lungs every 4 hours as needed for Wheezing. Use with spacer levothyroxine (Synthroid) 75 mcg tabletIndications:Hypot hyroidism, unspecified type Take 1 tablet by mouth daily. 90 tablet 3 04/29/2023 05/10/2024 pilocarpine (Salagen) 5 mg TabletIndications:Tonsi l cancer,Xerostomia Take 1-2 tablets by mouth 3 times daily. 180 tablet 11 12/10/2021 04/08/2024 loratadine (Claritin) 10 mg Tablet Take 10 mg by mouth daily as needed. 04/08/2024 documented as of this encounter Plan of Treatment Upcoming Encounters Date Type Department Care Team (Late st Contact Info) Description 05/31/2024 11:30 AM EST Office Visit Hematology/Oncolog y at [address] [phone] Tej Tipton MD [address] [facility] HEMATOLOGY & [place] [address] Stacy Valle APRN [facility] [place] [address] 06/01/2024 10:30 AM EST Scheduled View [place] [address] 06/01/2024 11:00 AM EST Office [place] [phone] Luis E Chin MD [facility] [place] [address] 06/04/2024 8:30 AM EST Hospital Encounter [place] [address] Rayshawn Suresh MD [facility] [place] [address] 06/04/2024 8:30 AM EST - 06/04/2024 1:05 PM EST Surgery [place] [phone] Rayshawn Suresh MD [facility] [place] [address] @THORACOSCOPY, SURG; W PLEURODESIS (WRVU 10.83) Scheduled [...] Priority Date/Time Associated Diagnosis Comments SURGICAL PATHOLOGY REPORT Routine 05/22/2023 10:47 AM EST documented in this encounter Results * Surgical Pathology Report (05/22/2023 10:47 AM EST) Final Diagnosis [id number] ? Location: [facility]W The signing pathologist has (i) examined the relevant preparation(s) for the specimen(s) and (ii) rendered or confirmed the diagnosis(es). . ?Surgical Pathology DIAGNOSIS ? ARCHIVAL CASE Please see addendum report for case [id number] for testing results. Please also see Specimen Submitted and Specimen Processing below for additional information on this archival request. Electronically signed by: ?Cecil Handy DO Verified: ??09/30/2023 12:51 ??Pathologist Performed at: ??-[facility] Dept. of Pathology, [place] [address] Centrifugal Operator: Montana Tam MD, FCAP, ??CLIA Certificate: [id number] SPECIMEN(S) SUBMITTED Retrieved from archives on 05/22/2023 for testing: Case [id number] block A. CLINICAL INFORMATION ARCHIVAL CASE SPECIMEN PROCESSING At the request of Dr. Cecil Handy, this is ordered at this time for the purpose of performing HPV. 09/30/2023 12:51 PM EDT [facility] Archival Case 05/22/2023 10: 47 AM EST 05/22/2023 10:47 AM EST Cecil Handy X, DO PATHOLOGY/CYTOLOGY ORDERABLES [facility] [place] [address] documented in this encounter Visit Diagnoses Not on filedocumented in this encounter Care Teams Health And Wellness Manager Relationship Specialty Start Date End Date Tiny Walters APRN [address] [place] [phone] PCP - General Family Medicine 12/01/19 04/07/24 documented as of this encounter
--- OUTSIDE RECORDS SUMMARY | 2024-05-31 01:21 | XMS_ITS | Encounter Summary ---
Author Organization [facility], Located Within [facility] [place] [address] Care Team Providers Care Control Chemist Name Role Phone Romeo Tiny Lindsay APRN Primary Care Provider +1- [phone] Encounter Details Date Type Department Care Team (Late Contact Info) Description 03/29/2024 Interpretation Only Radiology Library at [facility] [place] [address] Mehran Martinez MD [facility] DIAGNOSTIC [place] [address] Social History Tobacco Use Types Packs/Day Years [...] EST Office Visit Hematology/Oncolog y at [address] [phone] Tej Tipton MD [address] [facility] HEMATOLOGY & [place] [address] Stacy Valle APRN [facility] DR MEDICAL [place] [address] 06/01/2024 10:30 AM EST Scheduled View [place] [address] 06/01/2024 11:00 AM EST Office [place] [phone] Luis E Chin MD [facility] DR RADIATION [place] [address] 06/04/2024 8:30 AM EST Hospital Encounter [place] [phone] Rayshawn Suresh MD [facility] DR THORACIC [place] [address] 06/04/2024 8:30 AM EST - 06/04/2024 1:05 PM EST Surgery [place] [phone] Rayshawn Suresh MD [facility] DR THORACIC [place] [address] @THORACOSCOPY, SURG; W PLEURODESIS (WRVU 10.83) Scheduled [...] Associated Diagnosis Comments FILM LIBRARY STORAGE ONLY DX CHEST Routine 03/29/2024 1:50 PM EST documented in this encounter Results * Film Library- Storage Only DX Chest (03/29/2024 1:50 PM EST) 04/02/2024 6:39 PM EST Narrative RAD - 04/02/2024 6:39 PM EST This exam is auto-finalizing. It's purpose is for storage only. Mehran Martinez MD IM FILM LIBRARY ORD ERABLES JACQUELINE [place], [place] documented in this encounter Visit Diagnoses Not on filedocumented in this encounter Care Teams Control Chemist Relationship Specialty Start Date End Date Tiny Walters, MARKETING PROPOSAL COORDINATOR [address] [place] [phone] PCP - General Family Medicine 12/01/19 04/07/24 documented as of this encounter
--- OUTSIDE RECORDS SUMMARY | 2024-05-31 01:21 | XMS_ITS | Encounter Summary ---
Author Organization [facility] Address [facility] [place] [address] Care Team Providers Care Locomotive Inspector Name Role Phone Tiny Walters APRN Primary Care Provider +1- [phone] Encounter Details Date Type Department Care Team (Late st Contact Info) Description 04/02/2024 Notes [place] [phone] Dae Vasquez MD [facility] [place] [place] [address] Social History Tobacco Use Types Packs/Day Years Used Date Smoking Tobacco: Never Smokeless Tobacco: Never Alcohol Use Standard Drinks/Week Comments Yes 1 (1 standard drink = 0.6 oz pur e alcohol) Sex and Gender Information Value Date Recorded Sex Assigned at Not on file Gender Identity Not on file Sexual Orientation Not on file documented as of this encounter H&P Notes * Dae Vasquez MD - 04/02/2024 7:36 PM EST Images from the original note were not included. Interventional Radiology Focused Pre-procedure H&P: PCP: Tiny Walters APRN Referring Provider: Dr. Fady Sky Planned procedure: CT Guided Lung Biopsy - Right Procedure indication: New right lower lobe mass, hilar adenopathy, and right pleural effusion IR workflow: Interventional Radiology Service contacted by [facility] regarding the procedure request below, requested by Dr. Fady Sky from [facility]. History of present illness: Per chart review, Zen Pickering is a 43 y.o. male with a history of tonsillar cancer who presents to Interventional Radiology to undergo right lung biopsy in setting ofnew findings of right lower lobe mass, hilar adenopathy, and right pleural effusion on CT dated 04/02/24. History is obtained Dr. Fady Sky. 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 Completed chemo/radiation. Per chart review, he had no evidence of local recurrence since April 2023. Remainder of patient's medical and surgical history, allergies, medications, and social/family history obtained below as previously outlined in patient's medical record. IR history: None Imaging: CT Chest 04/02/24 Assessment: 43 y.o. male with a history of tonsillar cancer who presents to Interventional Radiology to undergo right lung biopsy in setting of new findings of right lower lobe mass, hilar adeenopathy, and right pleural effusion on CT dated 04/02/24. Plan Planned procedure: CT Guided Lung Biopsy - Right Labs to be performed day of procedure: PLT, Coags Sedation: Anesthesia Prophylactic antibiotic : None Contrast: No contrast Additional medications for procedure: Lidocaine Planned access site: Right Lower Lobe Position: Other (see comments) Consent: Pending Medications to discontinue (and days held): None Cytopathology presence needed: No Case Urgency:: F- Elective OUT-patient intervention within 3 days Labs: Lab Results Component Value Date HGB 13.2 (L) 07/20/2020 HCT 37.6 (L) 07/20/2020 WBC 3.3 (L) 07/20/2020 PLATELET 206 07/20/2020 BUN 17 07/20/2020 CREATININE 1.07 07/20/2020 ALBUMIN 4.6 07/20/2020 BILITOT 0.7 07/20/2020 AST 24 07/20/2020 ALT 24 07/20/2020 ALKPHOS 75 07/20/2020 Allergies: Patient has no known allergies. Medications: Current Outpatient Medications on File Prior to Visit Medication Sig Dispense Refill cyclobenzaprine (Flexeril) 10 mg tablet See Instructions, PRN as needed for muscle spasm, one po qhs prn spasm, # 20 tab, 0 Refill(s), Pharmacy: [id number] levothyroxine (Synthroid) 75 mcg tablet Take 1 tablet by mouth daily. 90 tablet 3 pilocarpine (Salagen) 5 mg Tablet Take 1-2 tablets by mouth 3 times daily. (Patient not taking: Reported on 11/08/2022) 180 tablet 11 loratadine (Claritin) 10 mg Tablet Take 10 mg by mouth daily as needed. Ibuprofen 200 mg Capsule Take 600 mg [...] Route Frequency Provider Last Rate Last Admin lidocaine (Xylocaine) 4 % (40 mg/mL) solution Topical (Top) Once PRN Jose Martin Rae MD Past medical/surgical history: Patient Active Problem List Diagnosis Code 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 Raynaud's syndrome I73.00 Dysphagia, oropharyngeal phase R13.12 Aspiration pneumonia of right lower lobe J69.0 Dehydration E86.0 Choking due to phlegm in larynx T17.310A Drug-induced nausea and vomiting R11.2, T50.905A Past Medical History: Diagnosis Date Asthma Raynaud's disease Tonsil cancer Past Surgical History: Procedure Laterality Date IR G-TUBE PLACEMENT 02/11/2020 IR G-Tube Placement 02/11/2020 Jose Angel Choi MD [facility] INTERVENTIONL RAD IR MEDIPORT PLACEMENT 02/11/2020 IR Mediport Placement 02/11/2020 Jose Angel Choi MD [facility] INTERVENTIONL RAD IR MEDIPORT REMOVAL 08/10/2020 IR Mediport Removal 08/10/2020 Marquis Crawford MD [facility] INTERVENTIONL RAD PRO LARYNGOSCOPY, DIRCT, OP SCOPE, BIOPSY Bilateral 01/05/2020 LARYNGOSCOPY, MICROSCOPE, WITH BIOPSY (WRVU 3.55) performed by Yrn Banuelos MD at [facility] MAIN OR PRO REMOVAL OF TONSILS, 12+ Y/O Left 01/28/2020 TONSILLECTOMY AGE 12 AND OVER (WRVU 3.45) performed by Yrn Banuelos MD at [facility] MAIN OR Social history and habits: Social History Tobacco Use Smoking status: Never Smokeless tobacco: Never Vaping Use Vaping status: Never Used Substance Use Topics Alcohol use: Yes Alcohol/week: 1.0 standard drink of alcohol Types: 1 Cans of beer per week Drug use: Never Significant family history: No family history on file. Pertinent ROS: as per HPI Physical exam: Pending (to be performed in interventional radiology the day of procedure) ASA: Pending (to be assessed in interventional radiology the day of procedure) Mallampati class: Pending (to be assessed in interventional radiology the day of procedure) 04/02/2024 Dae Vasquez MD documented in this encounter Miscellaneous Notes * Addendum Note - Dae Vasquez MD - 04/02/2024 7:36 PM ESTAddended by: DAE VASQUEZ on: 04/02/2024 10:06 PM Modules accepted: Orders documented in this encounter Plan of Treatment Upcoming Encounters Date Type Department Care Team (Late st Contact Info) Description 05/31/2024 11:30 AM EST Office Visit Hematology/Oncolog y at [address] [phone] Tej Tipton MD [address] [facility] HEMATOLOGY & [place] [address] Stacy Valle APRN [facility] [place] [place] [address] 06/01/2024 10:30 AM EST Scheduled View Only [place] [address] 06/01/2024 11:00 AM EST Office Visit [place] [address] Luis E Chin MD [facility] [place] [address] 06/04/2024 8:30 AM EST Hospital Encounter [place] [address] Rayshawn Suresh MD [facility] [place] [address] 06/04/2024 8:30 AM EST - 06/04/2024 1:05 PM EST Surgery [place] [address] Rayshawn Suresh MD [facility] [place] [address] @THORACOSCOPY, SURG; W PLEURODESIS (WRVU 10.83) Scheduled [...] on filedocumented in this encounter Care Teams Locomotive Inspector Relationship Specialty Start Date End Date Tiny Walters APRN [address] [place] [phone] PCP - General Family Medicine 12/01/19 04/07/24 documented as of this encounter
--- OUTSIDE RECORDS SUMMARY | 2024-05-31 01:21 | XMS_ITS | Encounter Summary ---
Author Organization [facility] [place] [address] Care Team Providers Care Business Analytics Specialist Name Role Phone Romeo Tiny Lindsay APRN Primary Care Provider +1- [phone] Encounter Details Date Type Department Care Team (Late Contact Info) Description 04/02/2024 6:40 PM EST Ancillary Procedure Radiology Library at [facility] [place] [address] Mehran Martinez MD [facility] [place] [address] Social History Tobacco Use Types Packs/Day Years [...] EST Office Visit Hematology/Oncolog y at [address] [address] Tej Tipton MD [facility] [place] HEMATOLOGY & [place] [address] Stacy Valle APRN [facility] [place] [address] 06/01/2024 10:30 AM EST Scheduled View Only [place] [address] 06/01/2024 11:00 AM EST Office Visit [place] [address] Luis E Chin MD [facility] [place] [address] 06/04/2024 8:30 AM EST Hospital Encounter [place] [address] Rayshawn Suresh MD [facility] [place] [address] 06/04/2024 8:30 AM EST - 06/04/2024 1:05 PM EST Surgery [place] [address] Rayshawn Suresh MD [facility] [place] [address] @THORACOSCOPY, SURG; W PLEURODESIS (WRVU 10.83) Scheduled [...] DX CHEST Routine 04/02/2024 6:38 PM EST documented in this encounter Results * Film Library- Storage Only DX Chest (04/02/2024 6:38 PM EST) 04/02/2024 6:38 PM EST Narrative KENIA PHILLIPS - 04/02/2024 6:38 PM EST This exam is auto-finalizing. It's purpose is for storage only. Mehran Martinez MD IMG FILM LIBRARY ORD ERABLES JACQUELINE [place], [place] documented in this encounter Visit Diagnoses Not on filedocumented in this encounter Care Teams Business Analytics Specialist Relationship Specialty Start Date End Date Tiny Walters, BATSHEVA [address] [place] [phone] PCP - General Family Medicine 12/01/19 04/07/24 documented as of this encounter
--- OUTSIDE RECORDS SUMMARY | 2024-05-31 01:21 | XMS_ITS | Encounter Summary ---
Author Organization [facility] [place] [address] Care Team Providers Care Consignee Name Role Phone Jose Angel Hopkins MD Primary Care Provider [phone] Reason for Visit * Reason Onset Date Comments Other 04/12/2024 Lab draw maxx dx Encounter Details Date Type Department Care Team (Late Contact Info) Description 04/12/2024 Telephone Hematology/Oncology at [address] [address] Taniya Barajas RN Other (Lab draw maxx dx) Social History Tobacco Use Types Packs/Day Years [...] Telephone Encounter - Taniya Barajas RN - 04/12/2024 3:38 PM EST [facility] Infusion Navdx lab kit draw Provider: jose roberto Test Requisition form competed if necessary (done electronically for genetics). Informational papergiven to patient, signed if needed, and patient agreed to lab draw. [facility]. lab kit blood drawn from: [ x ] venipuncture right antecubital [ ] mediport per protocol Specimens labeled appropriately and packaged per kit directions. Specimens sent via [employer]: 04/12/24 documented in this encounter Plan of Treatment Upcoming Encounters Date Type Department Care Team (Late st Contact Info) Description 05/31/2024 11:30 AM EST Office Visit Hematology/Oncolog y at [address] [phone] Tej Tipton MD [address] [facility] HEMATOLOGY & [place] [address] Stacy Valle APRN [facility] [place] [address] 06/01/2024 10:30 AM EST Scheduled View Only [place] [phone] 06/01/2024 11:00 AM EST Office Visit [place] [phone] Luis E Chin MD [facility] DR [place] [address] 06/04/2024 8:30 AM EST Hospital Encounter [place] [address] Rayshawn Suresh MD [facility] DR [place] [address] 06/04/2024 8:30 AM EST - 06/04/2024 1:05 PM EST Surgery [place] [address] Rayshawn Suresh MD [facility] DR [place] [address] @THORACOSCOPY, SURG; W PLEURODESIS (WRVU 10.) Scheduled [...] on filedocumented in this encounter Care Teams Consignee Relationship Specialty Start Date End Date Jose Angel Hopkins MD [address] [place] [address] [place] [phone] PCP - General Family Medicine 04/08/24 documented as of this encounter
--- OUTSIDE RECORDS SUMMARY | 2024-05-31 01:21 | XMS_ITS | Encounter Summary ---
[place] [address] Care Team Providers Care Motor Grader Operator Name Role Phone Tiny Walters APRN Primary Care Provider [phone]- [phone] Reason for Referral * Consultation (Urgent) - Authorized Specialty Diagnoses / Procedures Referred By Contkale t Referred To Contact Hematology and Oncology Diagnoses Mass of right lung Pleural effusion Malignant tumor of tonsil LUNG MASS RIGHT, PLEURAL EFFUSION, HX OF MALIGNANT TUMOR OF TONSIL 2019 Jose Angel Hopkins MD [address] [place] [address] [place] [address] [facility] Hem Onc [address] [place] [address] Referral ID Status Reason Start Date Expiration Date Visits Requested Visits Authorized [id number] Authorized Consult, Test & Treat PCP Updated and/or Approved 4 04/07/2025 6 6 Encounter Details Date Type Department Care Team (Latest Contact Info) Description 04/07/2024 Transcribe Orders eDH Incoming Referrals [phone] Jose Angel Hopkins MD [address] [place] [address] [place] [address] Mass of right lung; Pleural effusion; Malignant tumor of tonsil Social History Tobacco Use Types Packs/Day Years [...] AM EST Office Visit Hematology/Oncolog y at [address] [address] Tej Tipton MD [facility] [place] HEMATOLOGY & [place] [address] Stacy Valle APRN [facility] [place] [address] 06/01/2024 10:30 AM EST Scheduled View [place] [phone] 06/01/2024 11:00 AM EST Office Visit [place] [phone] Luis E Chin MD [facility] [place] [address] 06/04/2024 8:30 AM EST Hospital Encounter [place] [phone] Rayshawn Suresh MD [facility] [place] [address] 06/04/2024 8:30 AM EST - 06/04/2024 1:05 PM EST Surgery [place] [address] Rayshawn Suresh MD [facility] [place] [address] @THORACOSCOPY, SURG; W PLEURODESIS (WRVU 10.83) Scheduled Procedures Name Priority Associated Diagnoses Date/Ti me @THORACOSCOPY, SURG; W PLEURODESIS (WRVU 10.83) metastatic pleural effusion 06/04/2024 8:30 AM EST BRONCHOSCOPY, DIAGNOSTIC (WRVU 2.53) metastatic pleural effusion 06/04/2024 8:30 AM EST DIONNA\ALMA.CATHETER,TUNNELED, WITH SQ PORT OR PUMP OVER 5YR (WRVU 5.79) metastatic pleural effusion 06/04/2024 8:30 AM EST Scheduled Referrals Name Type Priority Associated Diagnoses Order Schedule Referral to Hematology and Oncology Outpatient Referral Urgent Mass of right lung Pleural effusion Malignant tumor of tonsil Ordered: 04/07/2024 documented as of this encounter Visit Diagnoses Diagnosis Mass of right lung Pleural effusion Unspecified pleural effusion Malignant tumor of tonsil Malignant neoplasm of tonsil documented in this encounter Care Teams Motor Grader Operator Relationship Specialty Start Date End Date Tiny Walters, BATSHEVA [address] [place] [phone] PCP - General Family Medicine 12/01/19 04/07/24 documented as of this encounter
--- OUTSIDE RECORDS SUMMARY | 2024-05-31 01:21 | XMS_ITS | Encounter Summary ---
Author Organization [facility] [place] [address] Care Team Providers Care Intelligence Intern Name Role Phone Jose Angel Hopkins MD Primary Care Provider [phone] Encounter Details Date Type Department Care Team (Latest Contact Info) Description 04/12/2024 Travel Social History Tobacco Use Types Packs/Day [...] EST Office Visit Hematology/Oncolog y at [address] [phone] Tej Tipton MD [address] [facility] [address] [place]OLOG[place] [address] Stacy Valle APRN [facility] [place] [address] 06/01/2024 10:30 AM EST Scheduled View [place] [address] 06/01/2024 11:00 AM EST Office [place] [phone] Luis E Chin MD [facility] [place] [place] [address] 06/04/2024 8:30 AM EST Hospital Encounter [place] [phone] Rayshawn Suresh MD [facility] [place] [address] 06/04/2024 8:30 AM EST - 06/04/2024 1:05 PM EST Surgery [place] [phone] Rayshawn Suresh MD [facility] [place] [address] @THORACOSCOPY, SURG; W PLEURODESIS (WRVU 10.83) Scheduled [...] on filedocumented in this encounter Care Teams Intelligence Intern Relationship Specialty Start Date End Date Jose Angel Hopkins MD [address] [place] [address] [place] [phone] PCP - General Family Medicine 04/08/24 documented as of this encounter
--- OUTSIDE RECORDS SUMMARY | 2024-05-31 01:21 | XMS_ITS | Encounter Summary ---
Author Organization [facility] [place] [address] Care Team Providers Care Horse Groomer Name Role Phone Romeo Tiny Lindsay APRN Primary Care Provider [phone]- [phone] Encounter Details Date Type Department Care Team (Late Contact Info) Description 03/23/2024 3:00 PM EST Ancillary Procedure Radiology Library at [facility] [place] [place] [address] Mehran Martinez MD [facility] [place] [address] Social History Tobacco Use Types Packs/Day Years [...] AM EST Office Visit Hematology/Oncolog y at [address] [phone] Tej Tipton MD [facility] [place] HEMATOLOGY & [place] [address] Stacy Valle APRN [facility] [place] [address] 06/01/2024 10:30 AM EST Scheduled View Only [place] [address] 06/01/2024 11:00 AM EST Office Visit [place] [phone] Luis E Chin MD [facility] [place] [address] 06/04/2024 8:30 AM EST Hospital Encounter [place] [address] Rayshawn Suresh MD [facility] [place] [address] 06/04/2024 8:30 AM EST - 06/04/2024 1:05 PM EST Surgery [place] [address] Rayshawn Suresh MD [facility] [place] [address] @THORACOSCOPY, SURG; W PLEURODESIS (WRVU 10.83) Scheduled [...] DX CHEST Routine 03/23/2024 3:00 PM EST documented in this encounter Results * Film Library- Storage Only DX Chest (03/23/2024 3:00 PM EST) 04/02/2024 6:40 PM EST Narrative KENIA PHILLIPS - 04/02/2024 6:40 PM EST This exam is auto-finalizing. It's purpose is for storage only. Mehran Martinez MD IMG FILM LIBRARY ORD ERABLES JACQUELINE [place], [place] documented in this encounter Visit Diagnoses Not on filedocumented in this encounter Care Teams Horse Groomer Relationship Specialty Start Date End Date Tiny Walters, BATSHEVA [address] [place] [phone] PCP - General Family Medicine 12/01/19 04/07/24 documented as of this encounter
--- OUTSIDE RECORDS SUMMARY | 2024-05-31 01:21 | XMS_ITS | Encounter Summary ---
Author Organization [facility] [place] [address] Care Team Providers Care Imposer Name Role Phone Jose Angel Hopkins MD Primary Care Provider [phone] Reason for Visit * Auth/Cert (Routine) Specialty Diagnoses / Procedures Referred By Contac t Referred To Contact Diagnoses Lung mass Lung mass/ Bronch with EBUS, transbronichial/ GA/ Eliot Procedures PRO BRONCHOSCOPY, TRANSBRONCH BIOPSY PRO [facility] EBUS GUIDED SAMPL 3/> NODE STATION/STRUX BRONCHOSCOPY (FLEXIBLE OR RIGID) W\TRANSBRONC BX (WRVU 3.55) BRONCH, W ENDOBRONCHIAL ULTRASOUND (EBUS) GUIDED SAMPLING, 3+ NODES (WRVU 4.96) Jigar Mccabe MD [facility] [place] [address] [facility] Referral ID Status Reason Start Date Expiration Date Visits Re quested Visits Authorized [id number] 1 1 Encounter Details Date Type Department Care Team (Latest Contact Info) Description 04/15/2024 8:31 AM EST - 04/15/2024 12:05 PM EST Hospital En[place] [address] Jigar Mccabe MD [facility] [place] [address] Lung mass Discharge Disposition: Home Social History Tobacco Use [...] Sign Reading Time Taken Comments Blood Pressure 137/78 04/15/2024 11:50 AM EST Pulse 64 04/15/2024 9:04 AM EST Temperature 36.2 ??C (97.2 ??F) 04/15/2024 11:[address] Respiratory Rate 18 04/15/2024 11:50 AM EST Oxygen Saturation 99% 04/15/2024 11:50 AM EST Inhaled Oxygen Concentration - - Weight 74.8 kg (165 lb) 04/15/2024 9:04 AM EST Height - - Body Mass Index 25.09 04/12/2024 2:38 PM EST documented in this encounter Discharge Instructions * Discharge Instructions* Nolvia Caputo LPN - 04/15/2024 11:06 AM EST Images from the original note were not included. Bronchoscopy: What to Expect at Home Your [...] (unless your doctor tells you not to). Do not drink alcohol. Medicines Take pain medicines exactly as directed. If the doctor gave you a prescription medicine for pain, take it as prescribed. If you are not taking a prescription pain medicine, ask your doctor if you can take an [id number] medicine. If you think your pain medicine [...] a list of the medicines you take. Other instructions For your safety, do not drive or operate machinery until the medicine wears off and you can think clearly. Your doctor may tell you not to drive or operate machinery until the day after your test. Do not sign legal documents or make major decisions until the medicine wears off and you can think clearly. The anesthesia can make it hard for you to fully understand what you are agreeing to. Additional Information for Sedation Patients For patients who received sedation: You may have received medications before and/or during your procedure which effects your judgement and reaction time. Do not drive, operate machinery, drink alcoholic beverages or make important decisions for 24 hours. Be careful on stairs as you may be unsteady on your feet. Do not smoke if you are alone. IV site: Slight redness or tenderness is normal, you can use a warm compress if you would like. If tenderness and/or redness increase or if foul drainage occurs, please contact your Doctor. Please call [phone] before 8pm Mon-Fri with problems, questions or concerns. If you call after 8pm or on weekends, call the Hospital at [phone] and ask to speak to the Maxillofacial Pathology admissions rn and the polyethylene bag machine operator will contact that person for you. When should you call for help? Call [...] any problems. Where can you learn more? [facility] View your After Visit Summary and more online at [email or web address] If you would like to provide feedback about your hospital experience, please call the Office of Patient and Family Relations at . If you have received this After Visit Summary in error, please immediately return it in person to the department, or notify the [facility] Privacy Office by calling toll free at between the hours of 8AM and 5PM to arrange for our retrieval of the documents at no cost to you. Content Version: 12.2 ?? [id number] [employer]. Care instructions adapted under license by [facility]. If you have questions about a medical condition or this instruction, always ask your healthcare professional. [employer] disclaims any warranty or liability for your [...] spasm, # 20 tab, 0 Refill(s), Pharmacy: [id number] 10/14/2022 Ibuprofen 200 mg Capsule Take 600 mg by mouth every 6 hours as needed. amLODIPine-benazepril (LOTREL) 5-10 mg Capsule Take 1 capsule by mouth daily as needed. albuteroL 90 mcg/actuation HFA Aerosol Inhaler Inhale 2 puffs into the lungs every 4 hours as needed for Wheezing. Use with spacer predniSONE (Deltasone) 10 mg tablet Take 10 mg by mouth daily. Taper 40 mg today on 04/12/24 04/07/2024 04/19/2024 levothyroxine (Synthroid) 75 mcg tabletIndications:Hypoth yroidism, unspecified type Take 1 tablet by mouth daily. 90 tablet 3 04/29/2023 05/10/2024 documented as of this encounter Progress Notes * Nolvia Caputo LPN - 04/15/2024 12:15 PM EST Patient alert and oriented, vital signs stable. Reviewed discharge instructions; patient and verbalized understanding. Copy of instruction sheet with contact numbers for questions/concerns. Painassessment documented. Patient escorted out of department via wheelchair with . documented in this encounter H&P Notes * Jigar Mccabe MD - 04/15/2024 9:20 AM EST Interventional Pulmonology Pre-Procedure History & Physical SECTION OF PULMONARY/CRITICAL CARE MEDICIE Procedure: Bronchoscopy, endobronchial ultrasound (EBUS), transbronchial lung biopsies Reason for procedure: Lung mass and Lymphadenopathy, tonsillar mass See last note from Dr. Tipton. PHYSICAL EXAM: Patient Vitals for the past 8 hrs: BP Temp Temp src Pulse Resp SpO2 Weight 04/15/24 0904 135/84 37 ??C (98.6 ??F) Temporal 64 18 98 % 74.8 kg (165 lb) Mental Status: Alert and oriented x3 Airway examination: Feasible Pulmonary: Clear to ausculation left, decr BS RLL CV: RRR, no murmurs or gallops ASA Grade: ASA III (Patient has severe systemic disease that is not incapacitating) Assessment & Plan: Risks, benefits and alternatives of the procedure were explained and all questions were answered Consent to be signed Proceed with procedure as stated Jigar Mccabe MD, 04/15/2024, 9:20 AM Interventional Pulmonology Section of Pulmonary & Critical Care Pager: [phone] Source Note - Tej Tipton MD - 04/12/2024 2:30 PM EST Oncology Outpatient Clinic Note Patient Referred by Dr Banuelos, ENT Service Reason for visit: F/u for treated H&N cancer 2019, f/u HILARIO, new onset of RFANKS, CP and new R lungmass 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; 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,cN2,cM0, 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]; s/p definitive chemo\radiation with weekly CDDP 40 mg/m2 2019 New onset dyspnea, CP and large R lower lung mass, met ds to L lung Oncologic Hx: 2020: Odynophagia, right otalgia, headache, trismus summer 2019; very large R tonsil nonkeratinizing SCC, extending to intrinsic to tongue, pterygoids, FOM, bilateral cervical adenopathy Treatment: Definitive chemoradiation (weekly cisplatin 40,g/m2) 02/29/2020 04/10/2020); course c/b RLL pneumonia 03/21/2020; completed 04/16cumulative cisplatin 280 mg/m2 New onset of dyspnea chest pain and imaging finding of her large dominant right lower lung mass, metastatic disease to left lung Interim Hx: Mr Pickering is a 43 [...] to clinic for further workup and examination. Jorge presents today with his jessie JUAREZ of a worsening dyspnea, intermittent chest discomfort, chesttightness like not able to take a deep breath positional dyspnea and difficulty lying down when sleeping. He has been taking Advil prn. The patient denies any new headaches, any new numbness or weakness, any precordial pain any abdominal pain any bowel changes any extremity swelling or edema. On 04/08/2024 patient was seen by Dr. Banuelos: An in office flexible laryngoscopy voice normal s/parea irradiated oropharynx and larynx, no concerning lesions in the OP, SLICER MACHINE OPERATOR or HP. CT scan from 04/02/2024 [...] liver and the adrenal glands were clear. Problem List Patient Active Problem List Diagnosis Drug-induced nausea and vomiting Choking due to [...] COMPLETED TREATMENT Akil - MD x x Akil - AP x Med Onc x x x x x x x x x x (SCP--SLICER MACHINE OPERATOR) Rad Onc x x x x [...] TREATMENT Akil - MD x x x Akil - AP x Med [...] - Vision change Palpitations - Productive cough Fevers Sinus congestion Orthopnea Wheezing Chills - [...] per week Drug use: Never Sexual activity: None Other [...] 24 hrs: Temp Pulse Resp BP SpO2 04/12/24 1438 36.2 ??C (97.2 ??F) 72 16 146/81 100 % General: well nourished adult, NAD, HEENT: Normocephalic, Tympanic membranes had no effusions, No sinus tenderness Lymph: no submandibular, posterior auricular, cervical or supraclavicular LN CVS: S1 S2 RRR, No M/R/G Resp: Significant decreased breath sounds in the right lower lung field Abd: NT/ND, no appreciable organomegaly Extremities:no pitting edema Skin:no appreciable rashes, ulcers or brusing Neuro: completely oriented to situation and space, grossly intact motor, moving all 4 extremities Labs: ISHA DX pending Assessment: 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 New onset dyspnea, CP and large R lower lung mass, met ds to L lung This is a 43-year-old male patient, never [...] disease to the contralateral left lung. I reviewed all of the above findings with the patient patient . Though HPV positive disease tends to recur at a median time of 1 year postinitial treatment the possibility of recurrent head and neck cancer cannot be ruled out versus primary lung cancer with metastatic disease. I outlined the importance of adequate histologic diagnosis, to that extent the patient had been scheduled for a intervention pulmonary medicine consultation and bronchoscopy this upcoming . A permanent tissue will be submitted for histology workup as well as molecular profiling, PDL1 expression / CPS. I alsostressed the importance of the patient undergoing a PET scan for further workup and also elucidation of enigmatic left shoulder pain. I also very much appreciate the prompt consultation by Dr. Banuelos who had performed a flexible laryngoscopy in this office which revealed a normal oropharynx and larynx and no lesion concerning for recurrent disease in the H&N region. Emotional support and encouragement was provided. The patient was seen for an 80-minute visit doing which I reviewed imaging the patient medical record, 60 minutes [id number] with 50-minute spent on consultation regarding the above findings. Plan: Await interventional pulmonary medicine consultation bronchoscopy a March NavDx testing performed today PET awaited MD follow-up in 1 week; labs CBC, CMP, LDH Tej Tipton documented in this encounter Miscellaneous Notes * Op Note - Jigar Mccabe MD - 04/15/2024 9:54 AM EST Images from the original note were not included. Interventional Pulmonology Bronchoscopy with EBUS-TBNA Operative Note SECTION OF PULMONARY & CRITICAL CARE MEDICINE PROCEDURE: Bronchoscopy with EBUS-Guided Transbronchial Needle Aspiration, TBBx, EBBx Date / Time: 04/15/2024 / 10:39 AM Location: Endoscopy Procedure Attending: Dr. Mccabe was present for the entire procedure. Others Present: Dr. Lynn, nursing, anesthesia, tech Indication(s) / Pre-Procedure Diagnosis: Mediastinal & hilar adenopathy and Lung mass PRE-PROCEDURE EVALUATION: Pre-procedure checks were completed. This includes relevant documentation (H&P, nursing assessment, pre-anesthesia/sedation assessment); labeled diagnostic and radiology studies matched to patient & properly displayed; availability of blood products, implants, devices and special equipment (matched to the patient); as well as site marking with patient involvement. Consent: Indications, risks, benefits and alternatives were explained during the informed consent process as stated on the informed consent form. Consent obtained from: patient Procedure Status: elective SEDATION, ANALGESIA, AND MONITORING: Medications: Refer to record of source. ASA Class: 3 Monitoring: Cardiac telemetry, pulse oximtery, blood pressure monitoring, capnography Time Out: A time out was performed prior to starting the procedure. Time out includes correct patient identity, agreement on procedure to be performed as stated on the informed consent, correct site and side (laterality). PROCEDURE IN DETAIL: The OnAir3G EB-580S bronchoscope was inserted into the ETT. The trachea, bilateral mainstem bronchi, and the bilateral segmental bronchi were all visualized and no obvious endobronchial lesions were noted on the left. There appeared to be endobronchial tumor in the RLL airway. The bronchoscope was removed and the EBUS scope inserted. EBUS confirmed the presence of a sub-cm node at stations 11L, 4L as well as an enlarged node at stations 4R, 7 and 11R. Multiple passes with EBUS TBNA were performed at each ruth station. Note, all mediastinal, hilar, lobar and segmental stations were evaluated during the procedure and those not listed were not biopsied due to lymph node diameter < 5mm or nodenot visualized. The EBUS scope was removed and the standard scope inserted. EBBx was obtained from t he RLL airway. TBBx was then performed in the medial basal RLL. Following this, hemostasis was confirmed, the procedure was terminated and the bronchoscope was withdrawn. Estimated Blood Loss: 20mL COMPLICATIONS: No immediate complications noted POST-PROCEDURE DIAGNOSIS: same, possible endobronchial disease RLL bronchus SPECIMENS REMOVED: Yes RECOMMENDATIONS: Await pathology results Jigar Mccabe MD Chief, Section of Pulmonary and [facility] [address] [place] [phone] Phone Pulm Generic: [phone] [email or web address] Pager #[phone] documented in this encounter Plan of Treatment Upcoming Encounters Date Type Department Care Team (Late st Contact Info) Description 05/31/2024 11:30 AM EST Office Visit Hematology/Oncolog y at [address] [phone] Tej Tipton MD [address] [facility] [place] [address] Stacy Valle APRN [facility] [place] [address] 06/01/2024 10:30 AM EST Scheduled View [place] [phone] 06/01/2024 11:00 AM EST Office [place] [phone] Luis E Chin MD [facility] [place] [address] 06/04/2024 8:30 AM EST Hospital Encounter [place] [phone] Rayshawn Suresh MD [facility] [place] [address] 06/04/2024 8:30 AM EST - 06/04/2024 1:05 PM EST Surgery [place] [phone] Rayshawn Suresh MD [facility] [place] [address] @THORACOSCOPY, SURG; W PLEURODESIS (WRVU 10.83) Scheduled [...] Diagnosis Comments XR CHEST ONE VIEW STAT 04/15/2024 11: 16 AM EST CANCERSEQ (RNA) Routine 04/15/2024 10 :25 AM EST Lung mass DH CANCERSEQ Routine 04/15/2024 10:25 AM EST Lung mass SURGICAL PATHOLOGY Routine 04/15/2024 10 :25 AM EST Lung mass CYTOLOGY FNA Routine 04/15/2024 10:23 AM EST [...] THAN THYROID Routine 04/15/2024 10:23 AM EST Bronchoscopy, Biopsy ([id number]) 04/15/2024 9:46 AM EST Lung mass [facility] Ebus Guided Sampl 3/> Node Station/Strux ([id number]) 04/15/2024 9:46 AM EST Lung mass Bronchoscopy, Transbronch Biopsy ([id number]) 04/15/2024 9:46 AM EST Lung mass documented in this encounter Results * XR Chest One View (04/15/2024 11:16 AM EST) WORKSTATION ID [id number] RAD Anatomical Region Laterality Modality Chest N/A Digital Radiogra phy Impressions 04/15/2024 11:42 AM EST 1. ??No pneumothorax. 2. ??Unchanged right perihilar and right lower lobe masslike consolidation concerning for malignancy with postobstructive pneumonia. 3. ??Unchanged small right effusion. Thank you for letting us participate in the care of this patient. ??If you are a health care provider and have any questions regarding this report, please contact the number below. ??For patients who have questions please contact the health healthcare administration intern that requested your imaging first. ? Electronically signed by: Lawrence Bryson MD, [facility] ([phone]), at 04/15/2024 11:42 AM Narrative 04/15/2024 11:42 AM EST EXAMINATION: XR CHEST ONE VIEW CLINICAL HISTORY: s/p TBBx RLL TECHNIQUE: 1 view of the chest , single image COMPARISON: Chest radiograph 04/02/2024. CT chest 04/02/2024. FINDINGS: Persistent consolidative opacity obscures portions of the right heart border and right hemidiaphragm. No new airspace consolidation. No pulmonary vascular congestion. No pneumothorax. Persistent blunting of the right costophrenic angle consistent with a small right effusion. No left-sided effusion. The left hilum is normal. The right hilum is prominent in size and concordant with a perihilar abnormal soft tissue seen on prior CT. Limited assessment of osseous structures demonstrates no acute abnormality. Procedure Note Lawrence Bryson MD - 04/15/2024 EXAMINATION: XR CHEST ONE VIEW CLINICAL HISTORY: s/p TBBx RLL TECHNIQUE: 1 view of the chest , single image COMPARISON: Chest radiograph 04/02/2024. CT chest 04/02/2024. FINDINGS: Persistent consolidative opacity obscures portions of the right heartborder and right hemidiaphragm. No new airspace consolidation. No pulmonaryvascular congestion. No pneumothorax. Persistent blunting of the right costophrenicangle consistent with a small right effusion. No left-sided effusion. The lefthilum is normal. The right hilum is prominent in size and concordant with aperihilar abnormal soft tissue seen on prior CT. Limited assessment of osseousstructures demonstrates no acute abnormality. IMPRESSION 1. No pneumothorax. 2. Unchanged right perihilar and right lower lobe masslikeconsolidation concerning for malignancy with postobstructive pneumonia. 3. Unchanged small right effusion. Thank you for letting us participate in the care of this patient. If youare a health care provider and have any questions regarding this report,please contact the number below. For patients who have questions please contactthe health healthcare administration intern that requested your imaging first. Electronically signed by: Lawrence Bryson MD, [facility]([phone]), at 04/15/2024 11:42 AM Jigar Mccabe MD IMG DX ORDERABL ES * CancerSeq (RNA) (04/15/2024 10:25 AM EST) NGS Report Status Resulted 05/04/2024 11:59 AM EST [facility] Tissue STRUCTURE OF LOWER LOBE OF RIGHT LUNG / Unknown 04/15/2024 10:25 AM EST 04/19/2024 5:24 PM EST Jigar Mccabe MD MOLECULAR ORDER ROCKY Performing Organization Address City/[facility]/ZIP Co de Phone Number [facility] [place] [address] * (ABNORMAL) CancerSeq (04/15/2024 10:25 AM EST) Pathologist [facility] NGS Report Status Abnormal(A ) 05/04/2024 11:59 AM EST [facility] Tissue STRUCTURE OF LOWER LOBE OF RIGHT LUNG / Unknown 04/15/2024 10:25 AM EST 04/19/2024 5:24 PM EST Jigar Mccabe MD MOLECULAR ORDER ROCKY Performing Organization Address City/[facility]/ZIP Co de Phone Number [facility] [place] [address] * (ABNORMAL) Surgical Pathology (04/15/2024 10:25 AM EST) Case Report Surgical Pathology Report ? Case: [id number] ? Authorizing Provider: ??Jigar Mccabe MD Collected: ? 04/15/2024 1025 ? Ordering Location: ? [place] [facility] Received: ?04/15/2024 1103 ? Pathologist: ? Analilia Barrett MD ? Specimens: ?? A) - Lung, Right Lower Lobe, right lower lobe endobronchial biopsy ? B) - Lung, Right Lower Lobe, right lower lobe transbronchial bx ? 4 2:36 PM [facility] Final Diagnosis A. Lung, right lower lobe, endobronchial biopsy: - Adenocarcinoma. B. Lung, right lower lobe, transbronchial biopsy: - Adenocarcinoma. 4 2:36 PM [facility] Discussion The tumor shows acinar/complex [...] tonsillar squamous cell carcinoma. 4 2:36 PM [facility] Addendum Tumor Proportion Sco re (TPS): % Expression: < 1% (negative) Interpretation Table: PD-L1 assay (22C3 pharmDX) for Keytruda Tumor Proportion Score (TPS): <1% PD-L1 Negative >=1% PD-L1 Expression Immunohistochemical assay was performed on paraffin-embedded tissue sections fixed in 10% neutral buffered formalin for 6-72 hours using the polymer system technique with appropriate controls. The assay was performed according to the pelt dropper's instructions using Anti-PD-L1 (22C3, pharmDX) antibody. 4 2:36 PM [facility] Addendum electronically signed by Ruel Singh MD on 04/23/2024 at 2:36 PM Additional Studies Task ID IHC/Special Stains Result B1-2 TTF1 Negative B1-3 D2-40 Negative for lymphatic invasion B1-4 CD31 Negative for vascular invasion B1-5 CK7 Positive (diffuse) B1-6 CK20 Positive (patchy) B1-7 GATA3 Negative (focal/non-specific reactivity) B1-8 p40 Negative B1-9 CDX2 Negative PD-L1 immunohistochemistry and molecular panel (NGS) are pending. 4 2:36 PM [facility] Disclaimer(s) Formalin-fixed, paraffin-embedded tissue sections [...] morphology, histopathological criteria and other diagnostic tests. 4 2:36 PM [facility] Clinical Information A. Lung, Right Lower Lobe, right lower lobe endobronchial biopsy Rule out malignancy 43 yo male hx Lung mass and Lymphadenopathy, tonsillar cancer B. Lung, Right Lower Lobe, right lower lobe transbronchial bx Rule out malignancy 43 yo male hx Lung mass and Lymphadenopathy, tonsillar mass 4 2:36 PM [facility] Gross Description A. Lung, Right [...] PATHOLOGY/CYTOL OGY ORDERABLES [facility] [place] [address] * (ABNORMAL) Cytology FNA (04/15/2024 10:23 AM EST) Case Report Medical Cytology Report ? Case: [id number] ? Authorizing Provider: ??Jigar Mccabe MD Collected: ? 04/15/2024 1023 ? Ordering Location: ? [place] [facility] Received: ?04/15/2024 1104 ? Pathologist: ? Robert Martinez MD ? Specimen: ?Lymph Node, Station 11R ? 04/19/2024 3:01 PM [facility] Specimen Source Lymph Node, Station 11R FNA 04/19/2024 3:01 PM [facility] Final Diagnosis Positive for malignancy 04/19/2024 3:01 PM [facility] Diagnosis Discussion Adenocarcinoma. Cell block was examined. 04/19/2024 3:01 PM [facility] Specimen Adequacy Satisfactory for evaluation. 04/19/2024 3:01 PM [facility] Clinical Information Lung mass and Lymphadenopathy, tonsillar mass 04/19/2024 3:01 PM [facility] Gross Description Received in formalin, approximately 25 mL total volume of cloudy, bloody fluid with clots. Total preparation: Cell Block: 1. 04/19/2024 3:01 PM [facility] Result Note THIS RESULT REQUIRES PHYSICIAN/ROHIT FOLLOW UP(A) 04/19/2024 3:01 PM [facility] Fine Needle Aspirate (Lymph Node, Station 11R) Non Blood Collection / Unknown 04/15/2024 10:23 AM EST 04/15/2024 11:04 AM EST Jigar Mccabe MD PATHOLOGY/CYTOL OGY ORDERABLES [facility] [place] [address] * (ABNORMAL) Cytology FNA (04/15/2024 10:23 AM EST) Case Report Medical Cytology Report ? Case: [id number] ? Authorizing Provider: ??Jigar Mccabe MD Collected: ? 04/15/2024 1023 ? Ordering Location: ? [place] [facility] [place] Received: ?04/15/2024 1103 ? Pathologist: ? Robert Martinez MD ? Specimen: ?Lymph Node, Station 4R ? 04/19/2024 2:54 PM EST [facility] Specimen Source Lymph Node, Station 4R FNA 04/19/2024 2:54 PM EST [facility] Final Diagnosis Positive for malignancy 04/19/2024 2:54 PM EST [facility] Diagnosis Discussion Adenocarcinoma. Cell block was examined. 04/19/2024 2:54 PM EST [facility] Specimen Adequacy Satisfactory for evaluation. 04/19/2024 2:54 PM EST [facility] Clinical Information Lung mass and Lymphadenopathy, tonsillar mass 04/19/2024 2:54 PM EST [facility] Gross Description Received in formalin, approximately 25 mL total volume of cloudy, bloody fluid with clots. Total preparation: Cell Block: 1. 04/19/2024 2:54 PM EST [facility] Result Note THIS RESULT REQUIRES PHYSICIAN/ROHIT FOLLOW UP(A) 04/19/2024 2:54 PM EST [facility] Fine Needle Aspirate (Lymph Node, Station 4R) Non Blood Collection / Unknown 04/15/2024 10:23 AM EST 04/15/2024 11:03 AM EST Jigar Mccabe MD PATHOLOGY/CYTOL OGY ORDERABLES Performing Organization Address City/State/[facility] Co de Phone Number [facility] [place] [address] * Cytology FNA (04/15/2024 10:23 AM EST) Case Report Medical Cytology Report ? Case: [id number] ? Authorizing Provider: ??Jigar Mccabe MD Collected: ? 04/15/2024 1023 ? Ordering Location: ? [place] [facility] [place] Received: ?04/15/2024 1104 ? Pathologist: ? Robert Martinez MD ? Specimen: ?Lymph Node, Station 7 ? 04/19/2024 2:57 PM EST [facility] Specimen Source Lymph Node, Station 7 FNA 04/19/2024 2:57 PM EST [facility] Final Diagnosis Negative for malignancy 04/19/2024 2:57 PM EST [facility] Diagnosis Discussion Consistent with benign lymph node sampling. Cell block was examined. 04/19/2024 2:57 PM [facility] Specimen Adequacy Satisfactory for evaluation. 04/19/2024 2:57 PM EST [facility] Clinical Information Lung mass and Lymphadenopathy, tonsillar mass 04/19/2024 2:57 PM EST [facility] Gross Description Received in formalin, approximately 25 mL total volume of cloudy, bloody fluid with clots. Total preparation: Cell Block: 1. 04/19/2024 2:57 PM EST [facility] Result Note Routine 04/19/2024 2:57 PM EST [facility] Fine Needle Aspirate (Lymph Node, Station 7) Non Blood Collection / Unknown 04/15/2024 10:23 AM EST 04/15/2024 11:04 AM EST Jigar Mccabe MD PATHOLOGY/CYTOL OGY ORDERABLES [facility] [place] [address] * Cytology FNA (04/15/2024 10:23 AM EST) Case Report Medical Cytology Report ? Case: [id number] ? Authorizing Provider: ??Jigar Mccabe MD Collected: ? 04/15/2024 1023 ? Ordering Location: ? [place] [facility] [place] Received: ?04/15/2024 1104 ? Pathologist: ? Robert Martinez MD ? Specimen: ?Lymph Node, Station 4L ? 04/19/2024 2:58 PM [facility] Specimen Source Lymph Node, Station 4L FNA 04/19/2024 2:58 PM [facility] Final Diagnosis Nondiagnostic 04/19/2024 2:58 PM [facility] Diagnosis Discussion The specimen contains fragments of bronchial epithelium and cartilage. Cell block was examined. 04/19/2024 2:58 PM [facility] Specimen Adequacy Satisfactory for evaluation. 04/19/2024 2:58 PM [facility] Clinical Information Lung mass and Lymphadenopathy, tonsillar mass 04/19/2024 2:58 PM [facility] Gross Description Received in formalin, approximately 25 mL total volume of clear, colorless fluid with clots. Total preparation: Cell Block: 1. 04/19/2024 2:58 PM EST [facility] Result Note Routine 04/19/2024 2:58 PM EST [facility] Fine Needle Aspirate (Lymph Node, Station 4L) Non Blood Collection / Unknown 04/15/2024 10:23 AM EST 04/15/2024 11:04 AM EST Jigar Mccabe MD PATHOLOGY/CYTOL OGY ORDERABLES Performing Organization Address [facility]/State/ZIP Co de Phone Number [facility] [place] [address] * Cytology FNA (04/15/2024 10:23 AM EST) Case Report Medical Cytology Report ? Case: [id number] ? Authorizing Provider: ??Jigar Mccabe MD Collected: ? 04/15/2024 1023 ? Ordering Location: ? [place] [facility] [place] Received: ?04/15/2024 1104 ? Pathologist: ? Robert Martinez MD ? Specimen: ?Lymph Node, Station 11L ? 04/19/2024 2:56 PM [facility] Specimen Source Lymph Node, Station 11L FNA 04/19/2024 2:56 PM [facility] Final Diagnosis Negative for malignancy 04/19/2024 2:56 PM [facility] Diagnosis Discussion Consistent with benign lymph node sampling. Cell block was examined. 04/19/2024 2:56 PM [facility] Specimen Adequacy Satisfactory for evaluation. 04/19/2024 2:56 PM [facility] Clinical Information and Lymphadenopathy, tonsillar mass 04/19/2024 2:56 PM [facility] Gross Description Received in formalin, approximately 25 mL total volume of cloudy, bloody fluid with clots. Total preparation: Cell Block: 1. 04/19/2024 2:56 PM [facility] Result Note Routine 04/19/2024 2:56 PM [facility] Fine Needle Aspirate (Lymph Node, Station 11L) Non Blood Collection / Unknown 04/15/2024 10:23 AM EST 04/15/2024 11:04 AM EST Jigar Mccabe MD PATHOLOGY/CYTOL OGY ORDERABLES [facility] [place] [address] documented in this encounter Visit Diagnoses Diagnosis Lung mass Swelling, mass, or lump in chest documented in this encounter Administered Medications Inactive Administered Medications - up to 3 most recent administrations Medication Order MAR Action Action Date Dose Rate Site ipratropium-albuteroL (Duoneb) 0.5 mg-3 mg(2.5 mg base)/3 mL nebulizer solution 3 mL 3 mL, Nebulization, ONCE, 1 dose, On Ambreen 04/15/24 at 1130, PACU Recovery, Routine Given 04/15/2024 11:30 AM EST 3 mLs documented in this encounter Active and Recently Administered Medications Times are shown in EST. Scheduled Medication Order 04/13/2024 04/14/2024 04/15/2024 ipratropium-albuteroL (Duoneb) 0.5 mg-3 mg(2.5 mg base)/3 mL nebulizer solution 3 mL (COMPLETED) 3 mL, Nebulization, ONCE, 1 dose, On Ambreen 04/15/24 at 1130, PACU Recovery, Routine 1130 (Given - Provid er: Nolvia Caputo LPN) documented in this encounter Care Teams Imposer Relationship Specialty Start Date End Date Jose Angel Hopkins MD [address] [place] [address] [place] [address] PCP - General Family Medicine 04/08/24 documented as of this encounter
--- OUTSIDE RECORDS SUMMARY | 2024-05-31 01:21 | XMS_ITS | Encounter Summary ---
Author Organization [facility] Address [facility] [place] [address] Care Team Providers Care Rig Hand Name Role Phone Romeo Tiny Angélica HERMAN Primary Care Provider +1- [phone] Encounter Details Date Type Department Care Team (Late Contact Info) Description 06/30/2023 Telephone [place] [address] [facility] [address] [place] [address] Social History Tobacco Use Types Packs/Day Years [...] encounter Miscellaneous Notes * Telephone Encounter - Jose Martin Rae MD - 06/30/2023 1:06 PM EST I called Mr. iPckering to let him know that his NavDx test came back negative. We will continue surveillance. documented in this encounter Plan of Treatment Upcoming Encounters Date Type Department Care Team (Late Contact Info) Description 05/31/2024 11:30 AM EST Office Visit Hematology/Oncolog y at [address] [phone] Tej Tipton MD [address] [facility] HEMATOLOGY & [place] [address] [facility] [address] [place] [address] 06/01/2024 10:30 AM EST Scheduled View [place] [address] 06/01/2024 11:00 AM EST Office Visit [place] [phone] [facility] [address] [place] [address] 06/04/2024 8:30 AM EST Hospital Encounter [place] [address] [facility] [address] [place] [address] 06/04/2024 8:30 AM EST - 06/04/2024 1:05 PM EST Surgery [place] [address] [facility] [address] [place] [address] @THORACOSCOPY, SURG; W PLEURODESIS (WRVU 10.83) Scheduled [...] on filedocumented in this encounter Care Teams Rig Hand Relationship Specialty Start Date End Date Tiny Walters APRN [address] [place] [phone] PCP - General Family Medicine 12/01/19 04/07/24 documented as of this encounter
--- OUTSIDE RECORDS SUMMARY | 2024-05-31 01:21 | XMS_ITS | Encounter Summary ---
Author Organization [facility] Agustina giles [place] [address] Care Team Providers Care Ice Cream Dipper Name Role Phone Romeo Tiny Lindsay APRN Primary Care Provider +1- [phone] Encounter Details Date Type Department Care Team (Late Contact Info) Description 04/02/2024 Interpretation Only Radiology Library at [facility] [place] [address] Mehran Martinez MD [facility] [place] [address] Social History Tobacco Use Types Packs/Day Years [...] EST Office Visit Hematology/Oncolog y at [address] [phone] Tej Tipton MD [address] [facility] HEMATOLOGY & [place] [address] Stacy Valle APRN [facility] [place] [address] 06/01/2024 10:30 AM EST Scheduled View Only [place] [address] 06/01/2024 11:00 AM EST Office Visit [place] [phone] Luis E Chin MD [facility] [place] [address] 06/04/2024 8:30 AM EST Hospital Encounter [place] [phone] Rayshawn Suresh MD [facility] [place] [address] 06/04/2024 8:30 AM EST - 06/04/2024 1:05 PM EST Surgery [place] [phone] Rayshawn Suresh MD [facility] [place] [address] @THORACOSCOPY, SURG; W PLEURODESIS (WRVU 10.83) Scheduled [...] Comments FILM LIBRARY STORAGE ONLY CT CHEST Routine 04/02/2024 4:40 PM EST documented in this encounter Results * Film Library- Storage Only CT Chest (04/02/2024 4:40 PM EST) 04/02/2024 6:40 PM EST Narrative RAD - 04/02/2024 6:40 PM EST This exam is auto-finalizing. It's purpose is for storage only. Mehran Martinez MD IM FILM LIBRARY ORD ERABLES JACQUELINE [place], [place] documented in this encounter Visit Diagnoses Not on filedocumented in this encounter Care Teams Ice Cream Dipper Relationship Specialty Start Date End Date Tiny Walters, TETRYL DISSOLVER OPERATOR [address] [place] [phone] PCP - General Family Medicine 12/01/19 04/07/24 documented as of this encounter
--- OUTSIDE RECORDS SUMMARY | 2024-05-31 01:21 | XMS_ITS | Encounter Summary ---
Author Organization [facility] [place] [address] Care Team Providers Care Drop Board Man Name Role Phone Tiny Walters APRN Primary Care Provider +1- [phone] Reason for Referral * Consultation (Urgent) - Closed Specialty Diagnoses / Procedures Referred By Contac t Referred To Contact Pulmonology Diagnoses Right lower lobe lung mass Dominique Echavarria APRN [facility] [address] [place] [address] [facility] Pulmonology [address] [place] [phone] Referral ID Status Reason Start Date Expiration Date V isits Requested Visits Authorized [id number] Closed Consult, Test & Treat 04/07/2024 04/07/2025 1 1 * Diagnostic Test (STAT) - Closed Specialty Diagnoses / Procedures Referred By Contac t Referred To Contact Radiology Diagnoses Tonsil cancer Procedures NM PET CT Standard Plus Head and Neck Dominique Echavarria APRN [facility] [place] [address] [facility] [place] [address] Referral ID Status Reason Start Date Expiration Date V isits Requested Visits Authorized [id number] Closed Specialty Service Requested 04/07/2024 10/06/2025 1 2 Encounter Details Date Type Department Care Team (Late Contact Info) Description 04/07/2024 Orders Only Hematology [place] [address] Dominique Echavarria APRN [facility] [address] [place] [address] Tonsil cancer; History of oropharyngeal cancer; Right lower lobe lung mass Social History Tobacco Use Types Packs/Day Years [...] AM EST Office Visit Hematology/Oncolog y at [address] [phone] Tej Tipton MD [address] [facility] [address] HEMATOLOGY & [place] [address] Stacy Valle APRN [facility] [place] [address] 06/01/2024 10:30 AM EST Scheduled View Only [place] [address] 06/01/2024 11:00 AM EST Office Visit [place] [phone] Luis E Chin MD [facility] [place] [address] 06/04/2024 8:30 AM EST Hospital Encounter [place] [address] Rayshawn Suresh MD [facility] [place] [address] 06/04/2024 8:30 AM EST - 06/04/2024 1:05 PM EST Surgery [place] [address] Rayshawn Suresh MD [facility] [place] [address] @THORACOSCOPY, SURG; W PLEURODESIS (WRVU 10.83) Scheduled Orders Name Type Priority Associated Diagnoses Orde r Schedule Miscellaneous Lab request Lab Routine History of oropharyngeal cancer Expected: 04/08/2024 (Approximate), Expires: 10/08/2024 Scheduled Procedures Name Priority Associated Diagnoses Date/Ti me @THORACOSCOPY, SURG; W PLEURODESIS (WRVU 10.83) metastatic pleural effusion 06/04/2024 8:30 AM EST BRONCHOSCOPY, DIAGNOSTIC (WRVU 2.53) metastatic pleural effusion 06/04/2024 8:30 AM EST DIONNA\ALMA.CATHETER,TUNNELED, WITH SQ PORT OR PUMP OVER 5YR (WRVU 5.79) metastatic pleural effusion 06/04/2024 8:30 AM EST Scheduled Referrals Name Type Priority Associated Diagnoses Order Schedule Referral to Pulmonology Outpatient Referral Urgent Right lower lobe lung mass Ordered: 04/07/2024 documented as of this encounter Results * NM PET CT Standard Plus Head and Neck (04/23/2024 2:23 PM EST) WORKSTATION ID [id number] RAD Anatomical Region Laterality Modality Positron Emissio [...] who have questions please contact the health resident care coordinator that requested your imaging first. ? 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, Malignant neoplasm of tonsil, unspecified TECHNIQUE: Following IV injection of 12-twpzce-2-deoxyglucose (FDG) a standard uptake of approximately 60 [...] Note Jigar Mustafa, DO - 04/27/2024 EXAMINATION: [place] PET CT STANDARD PLUS HEAD AND NECK CLINICAL HISTORY: history of tonsil cancer and now new enlarging rightlower lobe lung mass with hilar adenopathy and right pleural effusion, assessingfor new malignancy 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 FDG avid lesion within the left fourth [...] patients who have questions please contactthe health resident care coordinator that requested your imaging first. Dominique Echavarria APRN IMG PET ORDERABLE S * Request For 2nd Read CT Chest (04/07/2024 11:26 AM EST) WORKSTATION ID [id number] RAD Anatomical Region Laterality Modality Chest SO [...] who have questions please contact the health resident care coordinator that requested your imaging first. ? Electronically signed by: Natalee Marquez MD, [facility] ([phone]), at 04/07/2024 1:40 PM Narrative 04/07/2024 1:40 [...] finding. Procedure Note Natalee Arellano MD - 12/11/2024 EXAMINATION: REQUEST FOR 2ND READ CT CHEST [...] patients who have questions please contactthe health resident care coordinator that requested your imaging first. 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
--- OUTSIDE RECORDS SUMMARY | 2024-05-31 01:21 | XMS_ITS | Encounter Summary ---
Author Organization [facility] [place] [address] Care Team Providers Care Meat Stringer Name Role Phone Jose Angel Hopkins MD Primary Care Provider [phone] Reason for Visit * Reason Onset Date Comments Other 04/14/2024 Bronchoscopy ins tructions Encounter Details Date Type Department Care Team (Late st Contact Info) Description 04/14/2024 [place] [address] Jenny Henry RN Other (Bronchoscopy instructions) Social History Tobacco Use Types Packs/Day [...] Telephone Encounter - Jenny Henry RN - 04/14/2024 9:31 AM EST Made scheduled call to review instructions prior to interventional pulmonary procedure: [x] Informed patient of date, time, and location of procedure or pre-procedure imaging or tests as applicable. Scheduled bronchoscopy with EBUS/Transbronchial biopsies on 04/15/2024 at 9:35 in Endo under [place] with Dr. Mccabe. Arrive at 4T at 8:35 to check in. Procedure is scheduled for 60 minutes. [x] Informed patient they must have hog driver who accompanies them into and to [...] (document amount and type of oxygen device): [] Patient confirms they will bring necessary supplies for transport to and from [] Patient identifies this potential supply issue: Will document and contact their DME for assistance. [x] Medication review: Confirm any new medications since last seen in Pulmonary. Only need to review blood thinners, insulin and rescue inhaler. [x] Patient has rescue inhaler (e.g., albuterol) and will bring to procedure albuterol [x] Anticoagulation and anti-platelet therapy reviewed: [x] [...] VALARIE Kendrick, RN Pulmonary [facility] Pager: [phone] documented in this encounter Plan of Treatment Upcoming Encounters Date Type Department Care Team (Late st Contact Info) Description 05/31/2024 11:30 AM EST Office Visit Hematology/Oncolog y at [address] [phone] Tej Tipton MD [address] [facility] HEMATOLOGY & [place] [address] Stacy Valle APRN [facility] [place] [address] 06/01/2024 10:30 AM EST Scheduled View [place] [phone] 06/01/2024 11:00 AM EST Office Visit [place] [phone] Luis E Chin MD [facility] [place] [address] 06/04/2024 8:30 AM EST Hospital Encounter [place] [phone] Rayshawn Suresh MD [facility] [place] [address] 06/04/2024 8:30 AM EST - 06/04/2024 1:05 PM EST Surgery [place] [address] Rayshawn Suresh MD [facility] [place] [address] @THORACOSCOPY, SURG; W PLEURODESIS (WRVU 10.83) Scheduled [...] on filedocumented in this encounter Care Teams Meat Stringer Relationship Specialty Start Date End Date Jose Angel Hopkins MD [address] [place] [address] [place] [address] PCP - General Family Medicine 04/08/24 documented as of this encounter
--- OUTSIDE RECORDS SUMMARY | 2024-05-31 01:21 | XMS_ITS | Encounter Summary ---
Author Organization [facility] [place] [address] Care Team Providers Care Air Filler Name Role Phone Romeo Tiny Lindsay APRN Primary Care Provider [phone]- [phone] Encounter Details Date Type Department Care Team (Late Contact Info) Description 03/23/2024 Interpretation Only Radiology Library at [facility] [address] Mehran Martinez MD [facility] [place] [address] Social History Tobacco Use Types Packs/Day Years [...] AM EST Office Visit Hematology/Oncolog y at [address] [phone] Tej Tipton MD [address] [facility] HEMATOLOGY & [place] [address] Stacy Valle APRN [facility] [place] [address] 06/01/2024 10:30 AM EST Scheduled View Only [place] [address] 06/01/2024 11:00 AM EST Office Visit [place] [phone] Luis E Chin MD [facility] [place] [address] 06/04/2024 8:30 AM EST Hospital Encounter [place] [phone] Rayshawn Suresh MD [facility] [place] [address] 06/04/2024 8:30 AM EST - 06/04/2024 1:05 PM EST Surgery [place] [phone] Rayshawn Suresh MD [facility] [place] [address] @THORACOSCOPY, SURG; W PLEURODESIS (WRVU 10.83) Scheduled [...] MD IM FILM LIBRARY ORD ERABLES JACQUELINE [place], [place] documented in this encounter Visit Diagnoses Not on filedocumented in this encounter Care Teams Air Filler Relationship Specialty Start Date End Date Tiny Walters, AD OPERATIONS ASSOCIATE [address] [place] [phone] PCP - General Family Medicine 12/01/19 04/07/24 documented as of this encounter
--- OUTSIDE RECORDS SUMMARY | 2024-05-31 01:21 | XMS_ITS | Encounter Summary ---
Author Organization [facility] [place] [address] Care Team Providers Care Automation Technologist Name Role Phone Romeo Tiny Lindsay APRN Primary Care Provider +1- [phone] Encounter Details Date Type Department Care Team (Late Contact Info) Description 04/02/2024 4:40 PM EST Ancillary Procedure Radiology Library at [facility], [place], [facility] [place] [address] Mehran Martinez MD [facility] [place] [address] Social History Tobacco Use Types Packs/Day Years [...] EST Office Visit Hematology/Oncolog y at [address] [phone] Tej Tipton MD [facility]EM[place] [address] Stacy Valle APRN [facility] [place] [address] 06/01/2024 10:30 AM EST Scheduled View Only [place] [address] 06/01/2024 11:00 AM EST Office Visit [place] [address] Luis E Chin MD [facility] [place] [address] 06/04/2024 8:30 AM EST Hospital Encounter [place] [address] Rayshawn Suresh MD [facility] [place] [address] 06/04/2024 8:30 AM EST - 06/04/2024 1:05 PM EST [place] [address] Rayshawn Suresh MD [facility] [place] [address] @THORACOSCOPY, SURG; W PLEURODESIS (WRVU 10.83) Scheduled [...] MD IMG FILM LIBRARY ORD ERABLES JACQUELINE [place], [place] documented in this encounter Visit Diagnoses Not on filedocumented in this encounter Care Teams Automation Technologist Relationship Specialty Start Date End Date Tiny Walters, BATSHEVA [address] [place] [phone] PCP - General Family Medicine 12/01/19 04/07/24 documented as of this encounter
--- OUTSIDE RECORDS SUMMARY | 2024-05-31 01:21 | XMS_ITS | Encounter Summary ---
Author Organization [facility] [place] [address] Care Team Providers Care Collection Card Clerk Name Role Phone Romeo Tiny Lindsay APRN Primary Care Provider [phone]- [phone] Encounter Details Date Type Department Care Team (Late Contact Info) Description 03/29/2024 1:50 PM EST Ancillary Procedure Radiology Library at [facility] [place] [address] Mehran Martinez MD [facility] [place]AGNOST[place] [address] Social History Tobacco Use Types Packs/Day Years [...] EST Office Visit Hematology/Oncolog y at [address] [phone] Tej Tipton MD [facility] HEMATOLOGY & [place] [address] Stacy Valle APRN [facility] [place] [address] 06/01/2024 10:30 AM EST Scheduled View [place] [address] 06/01/2024 11:00 AM EST Office [place] [address] Luis E Chin MD [facility] [place] [address] 06/04/2024 8:30 AM EST Hospital Encounter [place] [address] Rayshawn Suresh MD [facility] [place] [address] 06/04/2024 8:30 AM EST - 06/04/2024 1:05 PM EST Surgery [place] [address] Rayshawn Suresh MD [facility] [place] [address] @THORACOSCOPY, SURG; W PLEURODESIS (WRVU 10.83) Scheduled [...] PM EST) 04/02/2024 6:39 PM EST Narrative KENIA PHILLIPS - 04/02/2024 6:39 PM EST This exam is auto-finalizing. It's purpose is for storage only. Mehran Martinez MD IMG FILM LIBRARY ORD ERABLES JACQUELINE [place], [place] documented in this encounter Visit Diagnoses Not on filedocumented in this encounter Care Teams Collection Card Clerk Relationship Specialty Start Date End Date Tiny Walters, BATSHEVA [address] [place] [phone] PCP - General Family Medicine 12/01/19 04/07/24 documented as of this encounter
--- OUTSIDE RECORDS SUMMARY | 2024-05-31 01:21 | XMS_ITS | Encounter Summary ---
Author Organization [facility] [place] [address] Care Team Providers Care Pharmacy Operations Coordinator Name Role Phone Jose Angel Hopkins MD Primary Care Provider [phone] Reason for Visit * Auth/Cert (Routine) Specialty Diagnoses / Procedures Referred By Contac t Referred To Contact Diagnoses Lung mass Lung mass/ Bronch with EBUS, transbronichial/ GA/ Eliot Procedures PRO BRONCHOSCOPY, TRANSBRONCH BIOPSY PRO [facility] EBUS GUIDED SAMPL 3/> NODE STATION/STRUX BRONCHOSCOPY (FLEXIBLE OR RIGID) W\TRANSBRONC BX (WRVU 3.55) BRONCH, W ENDOBRONCHIAL ULTRASOUND (EBUS) GUIDED SAMPLING, 3+ NODES (WRVU 4.96) Jigar Mccabe MD [facility] DR [place] [address] [facility] Referral ID Status Reason Start Date Expiration Date Visits Re quested Visits Authorized [id number] 1 1 Encounter Details Date Type Department Care Team (Late st Contact Info) Description 04/15/2024 9:45 AM EST Anesthesia [place] [phone] Donnie Herbert MD [address] [place] [address] [place] [address] Anesthesia Record Procedure Summary Procedure Name Responsible Anesthesiologist Anesthesia Start Time Anesthesia Stop Time BRONCHOSCOPY (FLEXIBLE OR RIGID) W\TRANSBRONC BX (WRVU 3.55) Donnie Herbert MD 04/15/24 0945 04/15/24 1048 Events Date Time Event Comment 04/15/2024 0846 0945 AN Verify 0945 Start 0945 An Start Data 0948 An Induction 0951 An Intubation 0953 Anesthesia Ready 0955 Break/Relief In I assumed ca re for Break Relief before which we: 1. Identified the patient 2. Identified the responsible provider(s) 3. Reviewed the pertinent medical history 4. Discussed the surgical plan and course 5. Reviewed intra-op anesthesia management and issues during anesthesia 6. Set expectations for the relief (and/or post-procedure) period 7. Allowed opportunity for questions and acknowledgement of understanding Donnie Herbert MD 1024 Break/Relief Out 1045 Extubation/LMA Out 1048 an stop data 1048 Recovery or ICU Handoff Carmen ent care was transferred to the destination unit staff after review of the patient's medical history, current anesthetic/surgical status and plan, according to the Provider Handoff Checklist. 1048 Stop Meds Name Total lidocaine IV 100 mg propofoL 400 mg propofol INF 604.01 mg dexmedeTOMIDine 4 mcg/mL 12 mcg rocuronium 50 mg sugammadex 200 mg sodium chloride 0.9% 60 mL * Agents Name O2 * Blood No blood administrations on file. Lines, Drains, and Airways Type Details Placement Removal Enterostomy Tube 02/11/20; 1447; gastrostomy tube with balloon, PEG (percutaneous endoscopic gastrostomy); LUQ (left upper quadrant); feeding; 16 fr Gastostomy Tube w/ 3-5 ml balloon MD Choi 02/11/20 1447 by Michi Byers, RN PIV 04/15/24; 0910; 22 g auge; basilic vein (medial side of arm), right; ernesto; distraction; 04/15/24; 1214 04/15/24 0910 by Desiree Mccormack, ARIK 04/15/24 1214 by Nolvia Caputo LPN ETT Mask Ventilation: Ea sy (1); ETT Type: Cuffed, Oral; ETT Size: 8.5 mm; Mac Blade: 4; Notes: Asleep, Pre-O2, Cricoid Pressure, Stylette; Attempts: 1; Laryngoscopy Grade: 1; ETT Placement Verified By: Visual, Capnometry, Auscultation; Secured at Teeth: 22 cm; Inserted by: MD Piedad; Removal Date: 04/15/24; Removal Time: 1045 04/15/24 0953 by Donnie Herbert MD 04/15/24 1045 by Jacob Block CRNA documented in this encounter Social History Tobacco Use Types Packs/Day Years Used Date Smoking Tobacco: Never Smokeless Tobacco: Never Alcohol Use Standard Drinks/Week Comments Yes 1 (1 standard drink = 0.6 oz pur e alcohol) occaional Sex and Gender Information Value Date Recorded Sex Assigned at Not on file Gender Identity Not on file Sexual Orientation Not on file documented as of this encounter OR Notes * Anesthesia Postprocedure Evaluation - Donnie Herbert MD - 04/15/2024 12:20 PM EST Department of Anesthesiology Post-procedure Note Patient: Zen Pickering Procedure Summary Date: 04/15/24 Room / Location: [facility] ENDO 1 / [facility] Anesthesia Start: 944 Anesthesia Stop: 1047 Procedures: BRONCHOSCOPY (FLEXIBLE OR RIGID) W\TRANSBRONC BX (WRVU 3.55) BRONCH, W ENDOBRONCHIAL ULTRASOUND (EBUS) GUIDED SAMPLING, 3+ NODES (WRVU 4.96) BRONCHOSCOPY, WITH BIOPSY (WRVU 3.11) Diagnosis: Lung mass (Lung mass/ Bronch with EBUS, transbronichial/ GA/ Eliot) Surgeons: Jigar Mccabe MD Responsible Provider: Donnie Herbert MD Anesthesia Type: general ASA Status: 2 All Anesthesia Providers: Anesthesiologist: Donnie Herbert MD CONSTRUCTION PROJECT ASSISTANT: Jacob Block CRNA Vitals Value Taken Time BP 137/78 04/15/24 1150 Temp 36.2 ??C (97.2 ??F) 04/15/24 1130 Pulse Resp 18 04/15/24 1150 SpO2 100 % 04/15/24 1154 Pain Score 0 04/15/24 1150 Vitals shown include unfiled device data. Patient Location: PACU/[facility] Level of Consciousness: Awake and Alert Pain Management: Satisfactory Analgesia PONV: None Cardiovascular Status: At Baseline and Hemodynamically Stable Respiratory Status: At Baseline and Room Air Postoperative Fluid Status: Intravascular EUvolemia Possible Anesthetic Complications: NONE apparent at time of evaluation Final Primary Anesthesia Type: General (The anesthetic type performed was the same as planned.) Comments: Donnie Herbert MD * Anesthesia Preprocedure Evaluation - Donnie Herbert MD - 04/15/2024 7:30 AM EST Pre-Anesthesia Evaluation for: Zen Pickering a 43 y.o. male. Procedure(s): BRONCHOSCOPY (FLEXIBLE OR RIGID) W\TRANSBRONC BX (WRVU 3.55) BRONCH, W ENDOBRONCHIAL ULTRASOUND (EBUS) GUIDED SAMPLING, 3+ NODES (WRVU 4.96) Patient Active Problem List Diagnosis Date Noted ??? Drug-induced nausea and vomiting 04/24/2020 ??? Choking due to phlegm in larynx 04/19/2020 ??? Dehydration 04/03/2020 ??? Aspiration pneumonia of right lower lobe 03/29/2020 ??? Dysphagia, oropharyngeal phase 03/28/2020 ??? Raynaud's syndrome 01/24/2020 ??? 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 Asthma ??? Raynaud's disease ??? Tonsil cancer Past Surgical History: Procedure Laterality Date ??? IR G-TUBE PLACEMENT 02/11/2020 IR G-Tube Placement 02/11/2020 Jose Angel Choi MD [facility] RAD ??? IR MEDIPORT PLACEMENT 02/11/2020 IR Mediport Placement 02/11/2020 Jose Angel Choi MD [facility] RAD ??? IR MEDIPORT REMOVAL 08/10/2020 IR Mediport Removal 08/10/2020 Marquis Crawford MD [facility] RAD ??? PRO LARYNGOSCOPY, DIRCT, OP SCOPE, BIOPSY Bilateral 01/05/2020 LARYNGOSCOPY, MICROSCOPE, WITH BIOPSY (WRVU 3.55) performed by Yrn Banuelos MD at [facility] MAIN OR ??? PRO REMOVAL OF TONSILS, 12+ Y/O Left 01/28/2020 TONSILLECTOMY AGE 12 AND OVER (WRVU 3.45) performed by Yrn Banuelos MD at [facility] MAIN OR Social History Tobacco Use ??? Smoking status: Never ??? Smokeless tobacco: Never Substance Use Topics ??? Alcohol use: Yes Alcohol/week: 1.0 standard drink of alcohol Types: 1 Cans of beer per week Social History Substance and Sexual Activity Drug Use Never No Known Allergies Medications: MAR and/or home medications have been reviewed. Physical Exam: Preprocedure Vitals Current as of 04/15/24 0730 No BP, pulse, respiration, SpO2, or temperature recorded. 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 PMH: Tonsillar cancer Plan: GA with LMA Region - Other Informed Consent: Anesthetic plan and risks discussed with patient. Plan discussed with CONSTRUCTION PROJECT ASSISTANT. Anesthesia Screening documented in this encounter Plan of Treatment Upcoming Encounters Date Type Department Care Team (Late st Contact Info) Description 05/31/2024 11:30 AM EST Office Visit Hematology/Oncolog y at [address] [phone] Tej Tipton MD [address] [facility] [address] [place] [address] Stacy Valle APRN [facility] [place] [address] 06/01/2024 10:30 AM EST Scheduled View Only [place] [address] 06/01/2024 11:00 AM EST Office Visit [place] [address] Luis E Chin MD [facility] DR [place] [address] 06/04/2024 8:30 AM EST Hospital Encounter [place] [phone] Rayshawn Suresh MD [facility] [place] [address] 06/04/2024 8:30 AM EST - 06/04/2024 1:05 PM EST Surgery [place] [address] Rayshawn Suresh MD [facility] [place] [address] @THORACOSCOPY, SURG; W PLEURODESIS (WRVU 10.83) Scheduled [...] Diagnoses Not on filedocumented in this encounter Administered Medications Inactive Administered Medications - up to 3 most recent administrations Medication Order MAR Action Action Date Dose Rate Site dexmedeTOMIDine (Precedex) (4 mcg/mL) bolus injection (Anesthsia) Intravenous, PRN, Starting on Ambreen 04/15/24 at 0948, Until Ambreen 04/15/24 at 1048, Anesthesia Intra-op, Routine Given 04/15/2024 9:48 AM EST 12 mcg lidocaine (pf) (Xylocaine) (20 mg/mL) 2% injection syringe Intravenous, PRN, Starting on Ambreen 04/15/24 at 0948, Until Ambreen 04/15/24 at 1048, Anesthesia Intra-op, Routine Given 04/15/2024 9:48 AM EST 100 mg propofoL (Diprivan) (10 mg/mL) infusion Intravenous, CONTINUOUS PRN, Starting on Ambreen 04/15/24 at 0948, Until Ambreen 04/15/24 at 1048, Anesthesia Intra-op, Routine Rate/Dose Change 04/15/2024 10:23 AM EST 125 mcg/kg/min 56.1 mL/hr Rate/Dose Change 04/15/2024 10:19 AM EST 150 mcg/kg/min 67 .32 mL/hr Rate/Dose Change 04/15/2024 10:05 AM EST 175 mcg/kg/min 78 .54 mL/hr propofoL (Diprivan) 10 mg/mL bolus injection (Anesthesia) Intravenous, PRN, Starting on Ambreen 04/15/24 at 0948, Until Ambreen 04/15/24 at 1048, Anesthesia Intra-op Given 04/15/2024 10:36 AM EST 50 mg Given 04/15/2024 9:57 AM EST 50 mg Given 04/15/2024 9:53 AM EST 100 mg rocuronium (Zemuron) (10 mg/mL) multi-dose injection Intravenous, PRN, Starting on Ambreen 04/15/24 at 0948, Until Ambreen 04/15/24 at 1048, Anesthesia Intra-op, Routine Given 04/15/2024 9:48 AM EST 50 mg sodium chloride 0.9% infusion Intravenous, CONTINUOUS PRN, Starting on Ambreen 04/15/24 at 0947, Until Ambreen 04/15/24 at 1048, Anesthesia Intra-op New Bag 04/15/2024 9:47 AM EST sugammadex (Bridion) 100 mg/mL injection Intravenous, PRN, Starting on Ambreen 04/15/24 at 1041, Until Ambreen 04/15/24 at 1048, Anesthesia Intra-op, Routine Given 04/15/2024 10:41 AM EST 200 mg documented in this encounter Care Teams Pharmacy Operations Coordinator Relationship Specialty Start Date End Date Jose Angel Hopkins MD [address] [place] [address] [place] [phone] PCP - General Family Medicine 04/08/24 documented as of this encounter
--- OUTSIDE RECORDS SUMMARY | 2024-05-31 01:21 | XMS_ITS | Encounter Summary ---
Author Organization [facility] Address [facility] [place] [address] Care Team Providers Care Tax Collector Name Role Phone Tiny Walters APRN Primary Care Provider +1- [phone] Reason for Referral * Diagnostic Test (Routine) - Pending Review Specialty Diagnoses / Procedures Referred By Fritz lanier Referred To Contact Radiology Diagnoses Mass of right lung Procedures CT Guided Biopsy Lung Huyen Nash PA [facility] [place] [address] [facility] [place] [address] Referral ID Status Reason Start Date Expiration Date Visits Requested Visits Authorized [id number] Pending Review Specialty Service Requested 4 10/05/2025 1 1 Encounter Details Date Type Department Care Team (Late st Contact Info) Description 04/06/2024 Orders [place] [address] Huyen Nash PA [facility] [place] [address] Mass of right lung Social History Tobacco Use Types Packs/Day Years [...] EST Office Visit Hematology/Oncolog y at [address] [address] Tej Tipton MD [address] [facility] HEMATOLOGY & [place] [address] Stacy Valle APRN [facility] [place] [address] 06/01/2024 10:30 AM EST Scheduled View Only [place] [phone] 06/01/2024 11:00 AM EST Office Visit [place] [address] Luis E Chin MD [facility] [place] [address] 06/04/2024 8:30 AM EST Hospital Encounter [place] [address] Rayshawn Suresh MD [facility] [place] [address] 06/04/2024 8:30 AM EST - 06/04/2024 1:05 PM EST Surgery [place] [phone] Rayshawn Suresh MD [facility] [place] [address] @THORACOSCOPY, SURG; W PLEURODESIS (WRVU 10.83) Scheduled Orders Name Type Priority Associated Diagnoses Orde r Schedule CT Guided Biopsy Lung Imaging Routine Mass of right lung Expected: 04/06/2024, Expires: 06/07/2024 Scheduled Procedures Name Priority Associated Diagnoses Date/Ti me @THORACOSCOPY, SURG; W PLEURODESIS (WRVU 10.83) metastatic pleural effusion 06/04/2024 8:30 AM EST BRONCHOSCOPY, DIAGNOSTIC (WRVU 2.53) metastatic pleural effusion 06/04/2024 8:30 AM EST DIONNA\ALMA.CATHETER,TUNNELED, WITH SQ PORT OR PUMP OVER 5YR (WRVU 5.79) metastatic pleural effusion 06/04/2024 8:30 AM EST documented as of this encounter Visit Diagnoses Diagnosis Mass of right lung documented in this encounter Care Teams Tax Collector Relationship Specialty Start Date End Date Tiny Walters, BATSHEVA [address] [place] [phone] PCP - General Family Medicine 12/01/19 04/07/24 documented as of this encounter
--- OUTSIDE RECORDS SUMMARY | 2024-05-31 01:21 | XMS_ITS | Encounter Summary ---
Author Organization [facility] [place] [address] Care Team Providers Care Cooler Servicer Name Role Phone Romeo Tiny Lindsay APRN Primary Care Provider +1- [phone] Encounter Details Date Type Department Care Team (Late Contact Info) Description 04/02/2024 Interpretation Only Radiology Library at [facility] [place] [address] Mehran Martinez MD [facility] [place] [address] Social History Tobacco Use Types Packs/Day Years [...] AM EST Office Visit Hematology/Oncolog y at [address] [phone] Tej Tipton MD [address] [facility] HEMATOLOGY & [place] [address] Stacy Valle APRN [facility] [place] [address] 06/01/2024 10:30 AM EST Scheduled View Only [place] [address] 06/01/2024 11:00 AM EST Office Visit [place] [address] Luis E Chin MD [facility] [place] [address] 06/04/2024 8:30 AM EST Hospital Encounter [place] [phone] Rayshawn Suresh MD [facility] [place] [address] 06/04/2024 8:30 AM EST - 06/04/2024 1:05 PM EST Surgery [place] [phone] Rayshawn Suresh MD [facility] [place] [address] @THORACOSCOPY, SURG; W PLEURODESIS (WRVU 10.83) Scheduled [...] PM EST) 04/02/2024 6:38 PM EST Narrative RAD - 04/02/2024 6:38 PM EST This exam is auto-finalizing. It's purpose is for storage only. Mehran Martinez MD IM FILM LIBRARY ORD ERABLES JACQUELINE [place], [place] documented in this encounter Visit Diagnoses Not on filedocumented in this encounter Care Teams Cooler Servicer Relationship Specialty Start Date End Date Tiny Walters, SENIOR BIOSTATISTICIAN [address] [place] [phone] PCP - General Family Medicine 12/01/19 04/07/24 documented as of this encounter
--- OUTSIDE RECORDS SUMMARY | 2024-05-31 01:21 | XMS_ITS | Encounter Summary ---
Author Organization [facility] [place] [address] Care Team Providers Care Robotics Engineer Name Role Phone Romeo Tiny Lindsay APRN Primary Care Provider +1- [phone] Encounter Details Date Type Department Care Team (Late Contact Info) Description 06/02/2023 Orders [place] [address] Jose Martin Rae MD [facility] [place] [address] Tonsil cancer Social History Tobacco Use Types [...] AM EST Office Visit Hematology/Oncolog y at [address] [address] Tej Tipton MD [address] [facility] HEMATOLOGY & [place] [address] Stacy Valle APRN [facility] [place] [address] 06/01/2024 10:30 AM EST Scheduled View [place] [address] 06/01/2024 11:00 AM EST Office [place] [address] Luis E Chin MD [facility] [place] [address] 06/04/2024 8:30 AM EST Hospital Encounter [place] [address] Rayshawn Suresh MD [facility] [place] [address] 06/04/2024 8:30 AM EST - 06/04/2024 1:05 PM EST Surgery [place] [address] Rayshawn Suresh MD [facility] [place] [address] @THORACOSCOPY, SURG; W PLEURODESIS (WRVU 10.83) Scheduled [...] tonsil documented in this encounter Care Teams Robotics Engineer Relationship Specialty Start Date End Date Tiny Walters APRN [address] [place] [phone] PCP - General Family Medicine 12/01/19 04/07/24 documented as of this encounter
--- OUTSIDE RECORDS SUMMARY | 2024-05-31 01:21 | XMS_ITS | Encounter Summary ---
Author Organization [facility] Address [facility] [place] [address] Care Team Providers Care Engineering Test Mechanic Name Role Phone Jose Angel Hopkins MD Primary Care Provider [phone] Encounter Details Date Type Department Care Team (Late st Contact Info) Description 04/12/2024 2:30 PM EST Office Visit Hematology/Oncology at [address] [phone] Tej Tipton MD [address] [facility] [address] HEMATOLOGY & [place] [address] Stacy Valle APRN [facility] [place] [address] History of oropharyngeal cancer Social History Tobacco Use Types Packs/Day [...] Sign Reading Time Taken Comments Blood Pressure 146/81 04/12/2024 2:38 PM EST Pulse 72 04/12/2024 2:38 PM EST Temperature 36.2 ??C (97.2 ??F) 04/12/2024 2:38 PM ES T Respiratory Rate 16 04/12/2024 2:38 PM EST Oxygen Saturation 100% 04/12/2024 2:38 PM EST Inhaled Oxygen Concentration - - Weight 79.8 kg (176 lb) 04/12/2024 2:38 PM EST Height 172.7 cm (5' 8) 04/12/2024 2:38 PM EST Body Mass Index 26.76 04/12/2024 2:38 PM EST documented in this encounter Progress Notes * Tej Tipton MD - 04/12/2024 2:30 PM EST Oncology Outpatient Clinic Note Patient Referred by Dr Banuelos, ENT Service Reason for visit: F/u for treated H&N cancer 2019, f/u HILARIO, new onset of FRANKS, CP and new R lungmass Dx: Right [...] larynx, no concerning lesions in the OP, DOCUMENT CLERK or HP. CT scan from 04/02/2024 was [...] x x x x x x x (SCP--DOCUMENT CLERK) Rad Onc x x x x x [...] 04/19/23 10/19/23 04/19/24 10/18/24 04/19/25 COMPLETED TREATMENT [place] - MD x x x Akil - [...] imaging the patient medical record, 60 minutes [id number] with 50-minute spent on consultation regarding the above findings. Plan: Await interventional pulmonary medicine consultation bronchoscopy a March NavDx testing performed today PET awaited MD follow-up in 1 week; labs CBC, CMP, LDH Tej Tipton documented in this encounter Plan of Treatment Upcoming Encounters Date Type Department Care Team (Late st Contact Info) Description 05/31/2024 11:30 AM EST Office Visit Hematology/Oncolog y at [address] [phone] Tej Tipton MD [address] [facility] DR HEMATOLOGY & [place] [address] Stacy Valle APRN [facility] [place] [address] 06/01/2024 10:30 AM EST Scheduled View [place] [address] 06/01/2024 11:00 AM EST Office [place] [phone] Luis E Chin MD [facility] [place] [address] 06/04/2024 8:30 AM EST Hospital Encounter [place] [address] Rayshawn Suresh MD [facility] [place] [address] 06/04/2024 8:30 AM EST - 06/04/2024 1:05 PM EST Surgery [place] [address] Rayshawn Suresh MD [facility] [place] [address] @THORACOSCOPY, SURG; W PLEURODESIS (WRVU 10.83) Scheduled Orders Name Type Priority Associated Diagnoses Orde r Schedule CBC (with Diff) Lab Routine History of oropharyngeal cancer Expected: 04/20/2024, Expires: 10/20/2024 Comprehensive metabolic panel Non-fasting Lab Routine History of oropharyngeal cancer Expected: 04/20/2024, Expires: 10/20/2024 Lactate Dehydrogenase Lab Routine History of oropharyngeal cancer Expected: 04/20/2024, Expires: 10/20/2024 Scheduled Procedures Name Priority Associated Diagnoses Date/Ti [...] unspecified parts of oral cavity and pharynx documented in this encounter Care Teams Engineering Test Mechanic Relationship Specialty Start Date End Date Jose Angel Hopkins MD [address] [place] [address] [place] [address] PCP - General Family Medicine 04/08/24 documented as of this encounter
--- OUTSIDE RECORDS SUMMARY | 2024-05-31 01:21 | XMS_ITS | Encounter Summary ---
Author Organization [facility] [place] [address] Care Team Providers Care Leather Staker Name Role Phone Jose Angel Hopkins MD Primary Care Provider [phone] Encounter Details Date Type Department Care Team (Latest Contact Info) Description 04/08/2024 Travel Social History Tobacco Use Types Packs/Day [...] AM EST Office Visit Hematology/Oncolog y at [address] [phone] Tej Tipton MD [address] [facility] DR HEMATOLOGY & [place] [address] Stacy Valle [address]N [facility] [place] [address] 06/01/2024 10:30 AM EST Scheduled View [place] [address] 06/01/2024 11:00 AM EST Office Visit [place] [phone] Luis E Chin MD [facility] [place] [address] 06/04/2024 8:30 AM EST Hospital Encounter [place] [phone] Rayshawn Suresh MD [facility] [place] [address] 06/04/2024 8:30 AM EST - 06/04/2024 1:05 PM EST Surgery [place] [phone] Rayshawn Suresh MD [facility] DR [place] [address] @THORACOSCOPY, SURG; W PLEURODESIS (WRVU 10.83) Scheduled [...] on filedocumented in this encounter Care Teams Leather Staker Relationship Specialty Start Date End Date Jose Angel Hopkins MD [address] [place] [address] [place] [phone] PCP - General Family Medicine 04/08/24 documented as of this encounter
--- OUTSIDE RECORDS SUMMARY | 2024-05-31 01:21 | XMS_ITS | Encounter Summary ---
Author Organization [facility] Address [facility] [place] [address] Care Team Providers Care Director Of Neurology Name Role Phone Tiny Walters APRN Primary Care Provider [phone] Encounter Details Date Type Department Care Team (Latest Contact Info) Description 05/22/2023 1:21 PM EST - 05/22/2023 11:59 PM EST [place] [phone] Discharge Disposition: Home Social History Tobacco Use [...] spasm, # 20 tab, 0 Refill(s), Pharmacy: [id number] 10/14/2022 Ibuprofen 200 mg Capsule Take [...] EST Office Visit Hematology/Oncolog y at [address] [phone] Tej Tipton MD [address] [facility] HEMATOLOGY [place] [address] Stacy Valle APRN [facility] [place] [address] 06/01/2024 10:30 AM EST Scheduled View [place] [address] 06/01/2024 11:00 AM EST Office [place] [phone] Luis E Chin MD [facility] [place] [address] 06/04/2024 8:30 AM EST Hospital Encounter [place] [address] Rayshawn Suresh MD [facility] [place] [address] 06/04/2024 8:30 AM EST - 06/04/2024 1:05 PM EST Surgery [place] [phone] Rayshawn Suresh MD [facility] [place] [address] @THORACOSCOPY, SURG; W PLEURODESIS (WRVU 10.83) Scheduled [...] filedocumented in this encounter Care Teams Director Of Neurology Relationship Specialty Start Date End Date Tiny Walters APRN [address] [place] [phone] PCP - General Family Medicine 12/01/19 04/07/24 documented as of this encounter
--- OUTSIDE RECORDS SUMMARY | 2024-05-31 01:21 | XMS_ITS | Encounter Summary ---
Author Organization [facility] Address [facility] [place] [address] Care Team Providers Care Metallographer Name Role Phone Jose Angel Hopkins MD Primary Care Provider Encounter Details Date Type Department Care Team (Late st Contact Info) Description 04/19/2024 3:00 PM EST Office Visit Hematology/Oncology at [address] [phone] Tej Tipton MD [address] [facility] [address] HEMATOLOGY & [place] [address] Stacy Valle APRN [facility] [place] [address] Adenocarcinoma of lung, right Social History Tobacco [...] Sign Reading Time Taken Comments Blood Pressure 144/77 04/19/2024 2:19 PM EST Pulse 101 04/19/2024 2:19 PM EST Temperature 36.4 ??C (97.5 ??F) 04/19/2024 2:19 PM ES T Respiratory Rate 16 04/19/2024 2:19 PM EST Oxygen Saturation 99% 04/19/2024 2:19 PM EST Inhaled Oxygen Concentration - - Weight 80.7 kg (178 lb) 04/19/2024 2:19 PM EST Height 172.7 cm (5' 7.99) 04/19/2024 2:19 PM ES T Body Mass Index 27.07 04/19/2024 2:19 PM EST documented in this encounter Progress Notes * Tej Tipton MD - 04/19/2024 3:00 PM EST Oncology Outpatient Clinic Note [...] carcinoma, 04/15/2024 RLL bx - adeno carcinoma Interim Hx: Mr Pickering is a 43 [...] larynx, 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 Exam: No data found. General: well nourished adult, NAD, HEENT: Normocephalic, [...] all 4 extremities Labs: ISHA DX pending 12/23/24: WBC 9.8 hemoglobin 14.5 hematocrit 43 platelet [...] carcinoma, 04/15/2024 RLL bx - adeno carcinoma This is a 43-year-old male patient, never [...] TTF-1 is negative. NGS and PD-L1 assay has been initiated, he will be critical to obtain a PET scan and likely also imaging of the brain, the PET scan will be obtained on a 04/23/2024. We will then reviewed with the patient systemic treatment option of present the patient at the thoracic tumor board meeting. The patient was seen for an 80-minute visit doing which I reviewed imaging the patient medical record, 60 minutes [id number] with 50-minute spent on consultation regarding the above findings. Plan: Anticipate presenting with patient at the thoracic tumor board meeting NavDx testing pending PET awaited for Friday follow-up in 1 week Tej Tipton documented in this encounter Plan of Treatment Upcoming Encounters Date Type Department Care Team (Late st Contact Info) Description 05/31/2024 11:30 AM EST Office Visit Hematology/Oncolog y at [address] [phone] Tej Tipton MD [address] [facility] [address] HEMATOLOGY & [place] [address] Stacy Valle APRN [facility] [place] [address] 06/01/2024 10:30 AM EST Scheduled View [place] [phone] 06/01/2024 11:00 AM EST Office Visit Radiation Oncology at [place] [phone] Luis E Chin MD [facility] [place] [address] 06/04/2024 8:30 AM EST Hospital Encounter [place] [phone] Rayshawn Suresh MD [facility] [place] [address] 06/04/2024 8:30 AM EST - 06/04/2024 1:05 PM EST [place] [phone] Rayshawn Suresh MD [facility] [place] [address] @THORACOSCOPY, SURG; W PLEURODESIS (WRVU 10.83) Scheduled [...] right documented in this encounter Care Teams Metallographer Relationship Specialty Start Date End Date Jose Angel Hopkins MD [address] [place] [address] [place] [address] PCP - General Family Medicine 04/08/24 documented as of this encounter
--- OUTSIDE RECORDS SUMMARY | 2024-05-31 01:21 | XMS_ITS | Encounter Summary ---
Author Organization [facility] [place] [address] Care Team Providers Care Deputy Chief Magistrate Name Role Phone Jose Angel Hopkins MD Primary Care Provider [phone] Encounter Details Date Type Department Care Team (Late Contact Info) Description 04/07/2024 11:30 AM EST Ancillary Procedure Radiology Library at [facility] [place] [address] Dominique Echavarria [facility] DR [place] [address] Tonsil cancer Social History Tobacco Use Types [...] AM EST Office Visit Hematology/Oncolog y at [address] [phone] Tej Tipton MD [address] [facility] HEMATOLOGY & [place] [address] Stacy Valle [facility] [place] [address] 06/01/2024 10:30 AM EST Scheduled View Only [place] [address] 06/01/2024 11:00 AM EST Office Visit [place] [phone] [facility] [place] [address] 06/04/2024 8:30 AM EST Hospital Encounter [place] [phone] [facility] [place] [address] 06/04/2024 8:30 AM EST - 06/04/2024 1:05 PM EST Surgery [place] [address] [facility] [place] [address] @THORACOSCOPY, SURG; W PLEURODESIS (WRVU 10.83) Scheduled [...] Procedure Name Priority Date/Time Associated Diagnosis Comments REQUEST FOR 2ND READ CT CHEST Routine 04/07/2024 11:26 AM EST Tonsil cancer documented in this encounter Results * Request For 2nd Read CT Chest (04/07/2024 11:26 AM EST) WORKSTATION ID [id number] RAD Anatomical Region Laterality Modality Chest SO [...] who have questions please contact the health director day care center that requested your imaging first. ? Narrative 04/07/2024 1:40 PM EST EXAMINATION: REQUEST FOR 2ND READ CT CHEST CLINICAL HISTORY: history of tonsil cancer and now new enlarging right lower lobe lung mass with hilar adenopathy and right pleural effusion; Sending Institution [facility]; Date of exam 20240402; I believe a [...] adenopathy and right pleural effusion; Sending Institution [facility]; Date of exam [id number]; I believe a [...] patients who have questions please contactthe health director day care center that requested your imaging first. Dominique Echavarria APRN IMG OUTSIDE INTER PRETATION ORDERABLES documented in this encounter Visit Diagnoses Diagnosis Tonsil cancer Malignant neoplasm of tonsil documented in this encounter Care Teams Deputy Chief Magistrate Relationship Specialty Start Date End Date Jose Angel Hopkins MD [address] [place] [address] [place] [phone] PCP - General Family Medicine 04/08/24 documented as of this encounter
--- OUTSIDE RECORDS SUMMARY | 2024-05-31 01:21 | XMS_ITS | Encounter Summary ---
Author Organization Replaced By [facility] Address [facility] [place] [address] Care Team Providers Care Cotton Tier Name Role Phone Tiny Walters APRN Primary Care Provider [phone] Encounter Details Date Type Department Care Team (Late Contact Info) Description 06/13/2023 9:00 AM EST Infusion Hematology Oncology at [address] [phone] Tonsil cancer Social History Tobacco Use Types [...] as of this encounter Progress Notes * Diana Sheets RN - 06/13/2023 9:00 AM EST Peripheral blood draw for research. Tolerated well. documented in this encounter Plan of Treatment Upcoming Encounters Date Type Department Care Team (Late st Contact Info) Description 05/31/2024 11:30 AM EST Office Visit Hematology/Oncolog y at [address] [phone] Tej Tipton MD [address] [facility] HEMATOLOGY & [place] [address] Stacy Valle APRN [facility] [place] [address] 06/01/2024 10:30 AM EST Scheduled View Only Radiation Oncology at [place] [phone] 06/01/2024 11:00 AM EST Office [place] [phone] Luis E Chin MD [facility] [place] [address] 06/04/2024 8:30 AM EST Hospital Encounter [place] [phone] Rayshawn Suresh MD [facility] [place] [address] 06/04/2024 8:30 AM EST - 06/04/2024 1:05 PM EST Surgery [place] [phone] Rayshawn Suresh MD [facility] [place] [address] @THORACOSCOPY, SURG; W PLEURODESIS (WRVU 10.83) Scheduled [...] tonsil documented in this encounter Care Teams Cotton Tier Relationship Specialty Start Date End Date Tiny Walters APRN [address] [place] [phone] PCP - General Family Medicine 12/01/19 04/07/24 documented as of this encounter
--- OUTSIDE RECORDS SUMMARY | 2024-05-31 01:21 | XMS_ITS | Encounter Summary ---
Author Organization [facility] [place] [address] Care Team Providers Care Test Baker Name Role Phone Jose Angel Hopkins MD Primary Care Provider [phone] Reason for Referral * Diagnostic Test (Routine) - Closed Specialty Diagnoses / Procedures Referred By Contac t Referred To Contact Radiology Diagnoses Adenocarcinoma of lung, right Procedures MRI Brain wwo Contrast (Generic) Stacy Valle APRN [facility] [place] [address] [place] [address] Referral ID Status Reason Start Date Expiration Date V isits Requested Visits Authorized [id number] Closed Specialty Service Requested 04/29/2024 10/27/2025 1 1 * Diagnostic Test (Routine) - Pending Review Specialty Diagnoses / Procedures Referred By Contac t Referred To Contact Radiology Diagnoses Adenocarcinoma of lung, right Procedures MRI Brain wwo Contrast ([place]) [place] [address] [place] [address] DR HEMATOLOGY & [place] [address] Referral ID Status Reason Start Date Expiration Date Visits Requested Visits Authorized [id number] Pending Review Specialty Service Requested 04/29/2024 10/27/2025 1 1 Encounter Details Date Type Department Care Team (Late st Contact Info) Description 04/22/2024 Orders Only Hematology/Oncology at [address] [phone] Tej Tipton MD [address] [facility] [place]OLOGY [place] [address] Adenocarcinoma of lung, right Social History Tobacco [...] AM EST Office Visit Hematology/Oncolog y at [address] [phone] Tej Tipton MD [address] [facility] [place]ATOLOGY [place] [address] Stacy Valle APRN [facility] [place] [address] 06/01/2024 10:30 AM EST Scheduled View Only [place] [phone] 06/01/2024 11:00 AM EST Office Visit [place] [phone] Luis E Chin MD [facility] [place] [address] 06/04/2024 8:30 AM EST Hospital Encounter [place] [phone] Rayshawn Suresh MD [facility] [place] [address] 06/04/2024 8:30 AM EST - 06/04/2024 1:05 PM EST Surgery [place] [phone] Rayshawn Suresh MD [facility] [place] [address] @THORACOSCOPY, SURG; W PLEURODESIS (WRVU 10.83) Scheduled Orders Name Type Priority Associated Diagnoses Orde r Schedule Miscellaneous Lab request Lab Routine Adenocarcinoma of lung, right Expected: 04/23/2024, Expires: 10/23/2024 MRI Brain wwo Contrast (Generic) Imaging Routine Adenocarcinoma of lung, right Expected: 04/30/2024, Expires: 10/30/2024 Scheduled Procedures Name Priority Associated Diagnoses Date/Ti me @THORACOSCOPY, SURG; W PLEURODESIS (WRVU 10.83) metastatic pleural effusion 06/04/2024 8:30 AM EST BRONCHOSCOPY, DIAGNOSTIC (WRVU 2.53) metastatic pleural effusion 06/04/2024 8:30 AM EST DIONNA\ALMA.CATHETER,TUNNELED, WITH SQ PORT OR PUMP OVER 5YR (WRVU 5.79) metastatic pleural effusion 06/04/2024 8:30 AM EST documented as of this encounter Results * MRI Brain wwo Contrast (Generic) (05/01/2024 8:05 AM EST) WORKSTATION ID [id number] RAD Anatomical Region Laterality Modality Head Magnetic [...] who have questions please contact the health childcare worker that requested your imaging first. ? Narrative 05/01/2024 1:12 PM EST EXAMINATION: MRI BRAIN WWO CONTRAST (GENERIC) CLINICAL HISTORY: pt c new diagnosed stage IV adeno ca of the lung; r/o brain [facility], JR C34.91, Malignant neoplasm of unspecified part [...] IV adeno ca of the lung; r/obrain [facility], JR C34.91, Malignant neoplasm of unspecified part [...] patients who have questions please contactthe health childcare worker that requested your imaging first. Stacy Valle TWISTHAND IMG MRI ORDERABLES documented in this encounter Visit Diagnoses Diagnosis Adenocarcinoma of lung, right Adenocarcinoma of lung, right documented in this encounter Care Teams Test Baker Relationship Specialty Start Date End Date Jose Angel Hopkins MD [address] [place] [address] [place] [address] PCP - General Family Medicine 04/08/24 documented as of this encounter
--- OUTSIDE RECORDS SUMMARY | 2024-05-31 01:21 | XMS_ITS | Encounter Summary ---
Author Organization [facility] [place] [address] Care Team Providers Care Gas Distribution And Emergency Clerk Name Role Phone Jose Angel Hopkins MD Primary Care Provider [phone] Reason for Visit * Auth/Cert (Routine) Specialty Diagnoses / Procedures Referred By Contac t Referred To Contact Diagnoses Lung mass Lung mass/ Bronch with EBUS, transbronichial/ GA/ Eliot Procedures PRO BRONCHOSCOPY, TRANSBRONCH BIOPSY PRO [facility] EBUS GUIDED SAMPL 3/> NODE STATION/STRUX BRONCHOSCOPY (FLEXIBLE OR RIGID) W\TRANSBRONC BX (WRVU 3.55) BRONCH, W ENDOBRONCHIAL ULTRASOUND (EBUS) GUIDED SAMPLING, 3+ NODES (WRVU 4.96) Jigar Mccabe MD [facility] [place] [address] [facility] Referral ID Status Reason Start Date Expiration Date Visits Re quested Visits Authorized [id number] 1 1 Encounter Details Date Type Department Care Team (Late st Contact Info) Description 04/15/2024 9:35 AM EST - 04/15/2024 10:45 AM EST Surgery [place] [address] Jigar Mccabe MD [facility] [place] [address] BRONCHOSCOPY (FLEXIBLE OR RIGID) W\TRANSBRONC BX (WRVU 3.55) Social History Tobacco Use Types Packs/Day Years [...] Sign Reading Time Taken Comments Blood Pressure 135/84 04/15/2024 9:04 AM EST Pulse 64 04/15/2024 9:04 AM EST Temperature 37 ??C (98.6 ??F) 04/15/2024 9:04 AM EST Respiratory Rate 18 04/15/2024 9:04 AM EST Oxygen Saturation 98% 04/15/2024 9:04 AM EST Inhaled Oxygen Concentration - - [...] your doctor if you can take an isqm-clz-tnzclkp medicine. If you think your pain medicine [...] occurs, please contact your Doctor. Please call [phone] before 8pm Mon-Fri with problems, questions or concerns. If you call after 8pm or on weekends, call the Hospital at [phone] and ask to speak to the Matchbook Maker inspector precision and the cavity pump operator will contact that person for you. [...] any problems. Where can you learn more? [facility] View your After Visit Summary and more online at [email or web address] If you would like to provide feedback about your hospital experience, please call the Office of Patient and Family Relations at . If you have received this After Visit Summary in error, please immediately return it in person to the department, or notify the [facility] Privacy Office by calling toll free at between the hours of 8AM and 5PM to arrange for our retrieval of the documents at no cost to you. Content Version: 12.2 ?? [id number] [employer] Care instructions adapted under license by [facility]. If you have questions about a medical condition or this instruction, always ask your healthcare professional. [employer] disclaims any warranty or liability for your [...] spasm, # 20 tab, 0 Refill(s), Pharmacy: [id number] 10/14/2022 Ibuprofen 200 mg Capsule Take [...] Section of Pulmonary & Critical Care Pager: [phone] Source Note - Tej Tipton MD - [...] larynx, no concerning lesions in the OP, GLOBAL CLINICAL LEADER or HP. CT scan from 04/02/2024 was [...] x x x x x x x (SCP--GLOBAL CLINICAL LEADER) Rad Onc x x x x x [...] 5 YEARS: Alternate annual follow-up appointments between [place] AP and MD, beginning with AP at [...] imaging the patient medical record, 60 minutes svjy-un-ppof with 50-minute spent on consultation regarding the [...] and side (laterality). PROCEDURE IN DETAIL: The Qudini EB-580S bronchoscope was inserted into the ETT. [...] Section of Pulmonary and Critical Care Medicine [address] Room [address] [address] Phone Pulm Generic: [phone] [email or web address] Pager #[phone] documented in this encounter Plan of Treatment Upcoming Encounters Date Type Department Care Team (Late st Contact Info) Description 05/31/2024 11:30 AM EST Office Visit Hematology/Oncolog y at [address] [address] Tej Tipton MD [facility] HEMATOLOGY & [place] [address] Stacy Valle APRN [facility] [place] [address] 06/01/2024 10:30 AM EST Scheduled View Only [place] [phone] 06/01/2024 11:00 AM EST Office Visit [place] [phone] Luis E Chin MD [facility] [place] [address] 06/04/2024 8:30 AM EST Hospital Encounter [place] [phone] Rayshawn Suresh MD [facility] [place] [address] 06/04/2024 8:30 AM EST - 06/04/2024 1:05 PM EST Surgery [place] [phone] Rayshawn Suresh MD [facility] [address] @THORACOSCOPY, SURG; W PLEURODESIS (WRVU 10.83) Scheduled [...] Routine 04/15/2024 10:23 AM EST Bronchoscopy, Biopsy ([id number]) 04/15/2024 9:46 AM EST Lung mass [facility] Ebus Guided Sampl 3/> Node Station/Strux (51913) 04/15/2024 9:46 AM EST Lung mass Bronchoscopy, Transbronch Biopsy ([id number]) 04/15/2024 9:46 AM EST Lung mass documented in this encounter Results * XR Chest One View (04/15/2024 11:16 AM EST) WORKSTATION ID [id number] RAD Anatomical Region Laterality Modality Chest N/A [...] have questions please contact the health director of medicare that requested your imaging first. ? Electronically signed by: Lawrence Bryson MD, [facility] ([phone]), at 04/15/2024 11:42 AM Narrative 04/15/2024 11:42 [...] who have questions please contactthe health director of medicare that requested your imaging first. Electronically signed by: Lawrence Bryson MD, [facility]([phone]), at 04/15/2024 11:42 AM Jigar Mccabe MD IMG DX ORDERABL ES * CancerSeq (RNA) (04/15/2024 10:25 AM EST) NGS Report Status Resulted 05/04/2024 11:59 AM EST [facility] Tissue STRUCTURE OF LOWER LOBE OF RIGHT LUNG / Unknown 04/15/2024 10:25 AM EST 04/19/2024 5:24 PM EST Jigar Mccabe MD MOLECULAR ORDER ROCKY Performing Organization Address City/[facility]/ZIP Co de Phone Number [facility] [employer] [place] [address] * (ABNORMAL) CancerSeq (04/15/2024 10:25 AM EST) Pathologist [facility] NGS Report Status Abnormal(A ) 05/04/2024 11:59 AM EST [facility] Tissue STRUCTURE OF LOWER LOBE OF RIGHT LUNG / Unknown 04/15/2024 10:25 AM EST 04/19/2024 5:24 PM EST Jigar Mccabe MD MOLECULAR ORDER ROCKY Performing Organization Address City/[facility]/ZIP Co de Phone Number [facility] [place] [address] * (ABNORMAL) Surgical Pathology (04/15/2024 10:25 AM EST) Case Report Surgical Pathology Report ? Case: [id number] ? Authorizing Provider: ??Jigar Mccabe MD Collected: ? 04/15/2024 1025 ? Ordering Location: ? Gastroenterology at [facility] ?? Received: ?04/15/2024 1103 ? Pathologist: ? Analilia Barrett MD ? Specimens: ?? A) - Lung, Right Lower Lobe, right lower lobe endobronchial biopsy ? B) - Lung, Right Lower Lobe, right lower lobe transbronchial bx ? 4 2:36 PM [facility] Final Diagnosis A. Lung, right lower lobe, endobronchial biopsy: - Adenocarcinoma. B. Lung, right lower lobe, transbronchial biopsy: - Adenocarcinoma. 4 2:36 PM [facility] Discussion The tumor shows acinar/complex glandular [...] tonsillar squamous cell carcinoma. 4 2:36 PM [facility] Addendum Tumor Proportion Sco re (TPS): % Expression: < 1% (negative) Interpretation Table: PD-L1 assay (22C3 pharmDX) for Keytruda Tumor Proportion Score (TPS): <1% PD-L1 Negative >=1% PD-L1 Expression Immunohistochemical assay was performed on paraffin-embedded tissue sections fixed in 10% neutral buffered formalin for 6-72 hours using the polymer system technique with appropriate controls. The assay was performed according to the plant tour guide's instructions using Anti-PD-L1 (22C3, pharmDX) antibody. 2:36 PM [facility] Addendum electronically signed by Ruel Singh [...] molecular panel (NGS) are pending. 2:36 PM [facility] Disclaimer(s) Formalin-fixed, paraffin-embedded tissue sections are [...] and other diagnostic tests. 4 2:36 PM [facility] Clinical Information A. Lung, Right Lower Lobe, right lower lobe endobronchial biopsy Rule out malignancy 43 yo male hx Lung mass and Lymphadenopathy, tonsillar cancer B. Lung, Right Lower Lobe, right lower lobe transbronchial bx Rule out malignancy 43 yo male hx Lung mass and Lymphadenopathy, tonsillar mass 4 2:36 PM [facility] Gross Description A. Lung, Right Lower [...] labeled B1. cmk 4 2:36 PM EST [facility] Result Note THIS RESULT REQUIR ES PHYSICIAN/ROHIT FOLLOW UP(A) 4 2:36 PM EST [facility] Tissue STRUCTURE OF LOWER LOBE [...] mass Jigar Mccabe MD PATHOLOGY/CYTOL OGY ORDERABLES [facility] [place] [address] * (ABNORMAL) Cytology FNA (04/15/2024 10:23 AM EST) Case Report Medical Cytology Report ? Case: [id number] ? Authorizing Provider: ??Jigar Mccabe MD Collected: ? 04/15/2024 1023 ? Ordering Location: ? Gastroenterology at [facility] ?? Received: ?04/15/2024 1104 ? Pathologist: ? Robert Martinez MD ? Specimen: ?Lymph Node, Station 11R ? 04/19/2024 3:01 PM [facility] Specimen Source Lymph Node, Station 11R FNA 04/19/2024 3:01 PM [facility] Final Diagnosis Positive for malignancy 04/19/2024 3:01 PM [facility] Diagnosis Discussion Adenocarcinoma. Cell block was examined. 04/19/2024 3:01 PM [facility] Specimen Adequacy Satisfactory for evaluation. 04/19/2024 3:01 PM [facility] Clinical Information Lung mass and Lymphadenopathy, tonsillar mass 04/19/2024 3:01 PM [facility] Gross Description Received in formalin, approximately 25 mL total volume of cloudy, bloody fluid with clots. Total preparation: Cell Block: 1. 04/19/2024 3:01 PM [facility] Result Note THIS RESULT REQUIRES PHYSICIAN/ROHIT FOLLOW UP(A) 04/19/2024 3:01 PM [facility] Fine Needle Aspirate (Lymph Node, Station 11R) Non Blood Collection / Unknown 04/15/2024 10:23 AM EST 04/15/2024 11:04 AM EST Jigar Mccabe MD PATHOLOGY/CYTOL OGY ORDERABLES [facility] [place] [address] * (ABNORMAL) Cytology FNA (04/15/2024 10:23 AM EST) Case Report Medical Cytology Report ? Case: [id number] ? Authorizing Provider: ??Jigar Mccabe MD Collected: ? 04/15/2024 1023 ? Ordering Location: ? Gastroenterology at [facility] ?? Received: ?04/15/2024 1103 ? Pathologist: ? Robert Martinez MD ? Specimen: ?Lymph Node, Station 4R ? 04/19/2024 2:54 PM EST [facility] Specimen Source Lymph Node, Station 4R FNA 04/19/2024 2:54 PM EST [facility] Final Diagnosis Positive for malignancy 04/19/2024 2:54 PM EST [facility] Diagnosis Discussion Adenocarcinoma. Cell block was examined. 04/19/2024 2:54 PM EST [facility] Specimen Adequacy Satisfactory for evaluation. 04/19/2024 2:54 PM EST [facility] Clinical Information Lung mass and Lymphadenopathy, tonsillar mass 04/19/2024 2:54 PM EST [facility] Gross Description Received in formalin, approximately 25 mL total volume of cloudy, bloody fluid with clots. Total preparation: Cell Block: 1. 04/19/2024 2:54 PM EST [facility] Result Note THIS RESULT REQUIRES PHYSICIAN/ROHIT FOLLOW UP(A) 04/19/2024 2:54 PM EST [facility] Fine Needle Aspirate (Lymph Node, Station 4R) Non Blood Collection / Unknown 04/15/2024 10:23 AM EST 04/15/2024 11:03 AM EST Jigar Mccabe MD PATHOLOGY/CYTOL OGY ORDERABLES Performing Organization Address City/State/[facility] Co de Phone Number [facility] [place] [phone] * Cytology FNA (04/15/2024 10:23 AM EST) Case Report Medical Cytology Report ? Case: [id number] ? Authorizing Provider: ??Jigar Mccabe MD Collected: ? 04/15/2024 1023 ? Ordering Location: ? Gastroenterology at [facility] ?? Received: ?04/15/2024 1104 ? Pathologist: ? Robert Martinez MD ? Specimen: ?Lymph Node, Station 7 ? 04/19/2024 2:57 PM EST [facility] Specimen Source Lymph Node, Station 7 FNA 04/19/2024 2:57 PM EST [facility] Final Diagnosis Negative for malignancy 04/19/2024 2:57 PM EST [facility] Diagnosis Discussion Consistent with benign lymph node sampling. Cell block was examined. 04/19/2024 2:57 PM EST [facility] Specimen Adequacy Satisfactory for evaluation. 04/19/2024 2:57 PM EST [facility] Clinical Information Lung mass and Lymphadenopathy, tonsillar mass 04/19/2024 2:57 PM EST [facility] Gross Description Received in formalin, approximately 25 mL total volume of cloudy, bloody fluid with clots. Total preparation: Cell Block: 1. 04/19/2024 2:57 PM EST [facility] Result Note Routine 04/19/2024 2:57 PM EST [facility] Fine Needle Aspirate (Lymph Node, Station 7) Non Blood Collection / Unknown 04/15/2024 10:23 AM EST 04/15/2024 11:04 AM EST Jigar Mccabe MD PATHOLOGY/CYTOL OGY ORDERABLES [facility] [place] [address] * Cytology FNA (04/15/2024 10:23 AM EST) Case Report Medical Cytology Report ? Case: [id number] ? Authorizing Provider: ??Jigar Mccabe MD Collected: ? 04/15/2024 1023 ? Ordering Location: ? Gastroenterology at [facility] ?? Received: ?04/15/2024 1104 ? Pathologist: ? Robert Martinez MD ? Specimen: ?Lymph Node, Station 4L ? 04/19/2024 2:58 PM [facility] Specimen Source Lymph Node, Station 4L FNA 04/19/2024 2:58 PM [facility] Final Diagnosis Nondiagnostic 04/19/2024 2:58 PM [facility] Diagnosis Discussion The specimen contains fragments of bronchial epithelium and cartilage. Cell block was examined. 04/19/2024 2:58 PM [facility] Specimen Adequacy Satisfactory for evaluation. 04/19/2024 2:58 PM [facility] Clinical Information Lung mass and Lymphadenopathy, tonsillar mass 04/19/2024 2:58 PM [facility] Gross Description Received in formalin, approximately 25 mL total volume of clear, colorless fluid with clots. Total preparation: Cell Block: 1. 04/19/2024 2:58 PM EST [facility] Result Note Routine 04/19/2024 2:58 PM EST [facility] Fine Needle Aspirate (Lymph Node, Station 4L) Non Blood Collection / Unknown 04/15/2024 10:23 AM EST 04/15/2024 11:04 AM EST Jigar Mccabe MD PATHOLOGY/CYTOL OGY ORDERABLES Performing Organization Address [facility]/State/ZIP Co de Phone Number [facility] [place] [address] * Cytology FNA (04/15/2024 10:23 AM EST) Case Report Medical Cytology Report ? Case: [id number] ? Authorizing Provider: ??Jigar Mccabe MD Collected: ? 04/15/2024 1023 ? Ordering Location: ? Gastroenterology at [facility] ?? Received: ?04/15/2024 1104 ? Pathologist: ? Robert Martinez MD ? Specimen: ?Lymph Node, Station 11L ? 04/19/2024 2:56 PM EST [facility] Specimen Source Lymph Node, Station 11L FNA 04/19/2024 2:56 PM EST [facility] Final Diagnosis Negative for malignancy 04/19/2024 2:56 PM EST [facility] Diagnosis Discussion Consistent with benign lymph node sampling. Cell block was examined. 04/19/2024 2:56 PM EST [facility] Specimen Adequacy Satisfactory for evaluation. 04/19/2024 2:56 PM EST [facility] Clinical Information and Lymphadenopathy, tonsillar mass 04/19/2024 2:56 PM [facility] Gross Description Received in formalin, approximately 25 mL total volume of cloudy, bloody fluid with clots. Total preparation: Cell Block: 1. 04/19/2024 2:56 PM EST [facility] Result Note Routine 04/19/2024 2:56 PM [facility] Fine Needle Aspirate (Lymph Node, Station 11L) Non Blood Collection / Unknown 04/15/2024 10:23 AM EST 04/15/2024 11:04 AM EST Jigar Mccabe MD PATHOLOGY/CYTOL OGY ORDERABLES [facility] [place] [address] documented in this encounter Visit Diagnoses Diagnosis Lung mass Swelling, mass, or lump in chest Lung mass Swelling, mass, or lump in [...] LPN) documented in this encounter Care Teams Gas Distribution And Emergency Clerk Relationship Specialty Start Date End Date Jose Angel Hopkins MD [address] [place] [address] [place] [phone] PCP - General Family Medicine 04/08/24 documented as of this encounter
--- OUTSIDE RECORDS SUMMARY | 2024-05-31 01:21 | XMS_ITS | Encounter Summary ---
Author Organization [facility] [place] [address] Care Team Providers Care Banquet Stewardess Name Role Phone Jose Angel Hopkins MD Primary Care Provider [phone] Encounter Details Date Type Department Care Team (Latest Contact Info) Description 04/19/2024 Travel Social History Tobacco Use Types Packs/Day [...] AM EST Office Visit Hematology/Oncolog y at [address] [address] Tej Tipton MD [facility] DR HEMATOLOGY & [place] [address] Stacy Valle APRN [facility] [place] [address] 06/01/2024 10:30 AM EST Scheduled View Only [place] [phone] 06/01/2024 11:00 AM EST Office Visit [place] [phone] Luis E Chin MD [facility] [place] [address] 06/04/2024 8:30 AM EST Hospital Encounter [place] [phone] Rayshawn Suresh MD [facility] [place] [address] 06/04/2024 8:30 AM EST - 06/04/2024 1:05 PM EST Surgery [place] [phone] Rayshawn Suresh MD [facility] [place] [address] @THORACOSCOPY, SURG; W PLEURODESIS (WRVU 10.83) Scheduled [...] on filedocumented in this encounter Care Teams Banquet Stewardess Relationship Specialty Start Date End Date Jose Angel Hopkins MD [address] [place] [address] [place] [phone] PCP - General Family Medicine 04/08/24 documented as of this encounter
--- OUTSIDE RECORDS SUMMARY | 2024-05-31 01:21 | XMS_ITS | Encounter Summary ---
Author Organization [facility] [place] [address] Care Team Providers Care Bench Patternmaker Metal Name Role Phone Tiny Walters APRN Primary Care Provider [phone] Encounter Details Date Type Department Care Team (Late st Contact Info) Description 04/07/2024 Telephone [place] [phone] Stacy Rodriguez Social History Tobacco Use Types [...] EST Office Visit Hematology/Oncolog y at [address] [phone] Tej Tipton MD [address] [facility] HEMATOLOGY & [place] [address] Stacy Valle APRN [facility] DR MEDICAL ONCOLOGY [place] [address] 06/01/2024 10:30 AM EST Scheduled View Only [place] [phone] 06/01/2024 11:00 AM EST Office Visit [place] [address] Luis E Chin MD [facility] DR RADIATION ONCOLOGY [place] [address] 06/04/2024 8:30 AM EST Hospital Encounter Main [place] [phone] Rayshawn Suresh MD [facility] DR THORACIC SURGERY [place] [address] 06/04/2024 8:30 AM EST - 06/04/2024 1:05 PM EST Surgery [place] [address] Rayshawn Suresh MD [facility] DR THORACIC SURGERY [place] [address] @THORACOSCOPY, SURG; W PLEURODESIS (WRVU 10.83) Scheduled [...] on filedocumented in this encounter Care Teams Bench Patternmaker Metal Relationship Specialty Start Date End Date Tiny Walters APRN [address] [place] [phone] PCP - General Family Medicine 12/01/19 04/07/24 documented as of this encounter
--- OUTSIDE RECORDS SUMMARY | 2024-05-31 01:21 | XMS_ITS | Encounter Summary ---
Author Organization [facility] Address [facility] [place] [address] Care Team Providers Care Lure Maker Name Role Phone Jose Angel Hopkins MD Primary Care Provider [phone] Encounter Details Date Type Department Care Team (Late st Contact Info) Description 04/19/2024 [place] [phone] Jigar Mccabe MD [facility] [place] [address] Social History Tobacco Use Types Packs/Day Years [...] encounter Miscellaneous Notes * Telephone Encounter - Jigar Mccabe MD - 04/19/2024 3:14 PM EST I spoke to Mr. Serra about the results of his bronchoscopy from 03/16/2024 confirming adenocarcinoma from the right lower lobe, stations 11R, 4R. There were lymphocytes and station 7 and 11L and station 4L was nondiagnostic. I encouraged him to discuss these results with his oncologist, Dr. Tipton though at this time this seems to be more consistent with a lung primary then his prior tonsillar cancer. All of his questions were answered and he agrees with the plan. documented in this encounter Plan of Treatment Upcoming Encounters Date Type Department Care Team (Late st Contact Info) Description 05/31/2024 11:30 AM EST Office Visit Hematology/Oncolog y at [address] [address] Tej Tipton MD [address] [facility] HEMATOLOGY & [place] [address] Stacy Valle APRN [facility] [place] [address] 06/01/2024 10:30 AM EST Scheduled View [place] [phone] 06/01/2024 11:00 AM EST Office Visit Radiation Oncology at [place] [phone] Luis E Chin MD [facility] [place] [address] 06/04/2024 8:30 AM EST Hospital Encounter [place] [phone] Rayshawn Suresh MD [facility] [place] [address] 06/04/2024 8:30 AM EST - 06/04/2024 1:05 PM EST Surgery [place] [phone] Rayshawn Suresh MD [facility] [place] [address] @THORACOSCOPY, SURG; W PLEURODESIS (WRVU 10.83) Scheduled [...] on filedocumented in this encounter Care Teams Lure Maker Relationship Specialty Start Date End Date Jose Angel Hopkins MD [address] [place] [address] [place] [phone] PCP - General Family Medicine 04/08/24 documented as of this encounter
--- OUTSIDE RECORDS SUMMARY | 2024-05-31 01:22 | XMS_ITS | Encounter Summary ---
Author Organization [facility] Address [facility] [place] [address] Care Team Providers Care Blasting Worker Name Role Phone Tiny Walters APRN Primary Care Provider +1- [phone] Encounter Details Date Type Department Care Team (Latest Contact Info) Description 05/22/2023 10:02 AM EST - 05/22/2023 11:59 PM [place] [phone] Discharge Disposition: Home Social History Tobacco Use [...] spasm, # 20 tab, 0 Refill(s), Pharmacy: [id number] 10/14/2022 Ibuprofen 200 mg Capsule Take [...] AM EST Office Visit Hematology/Oncolog y at [address] [phone] Tej Tipton MD [address] [facility] HEMATOLOGY [place] [address] Stacy Valle APRN [facility] [place] [place] [address] 06/01/2024 10:30 AM EST Scheduled View [place] [address] 06/01/2024 11:00 AM EST Office [place] [address] Luis E Chin MD [facility] [place] [address] 06/04/2024 8:30 AM EST Hospital Encounter [place] [address] Rayshawn Suresh MD [facility] [place] [address] 06/04/2024 8:30 AM EST - 06/04/2024 1:05 PM EST Surgery [place] [address] Rayshawn Suresh MD [facility] [place] [address] @THORACOSCOPY, SURG; W PLEURODESIS (WRVU 10.83) Scheduled [...] Diagnosis Comments SURGICAL PATHOLOGY REPORT Routine 05/22/2023 10:52 AM EST documented in this encounter Results * Surgical Pathology Report (05/22/2023 10:52 AM EST) Final Diagnosis [id number] ? Location: OPW The signing pathologist has (i) examined the relevant preparation(s) for the specimen(s) and (ii) rendered or confirmed the diagnosis(es). . ?Surgical Pathology DIAGNOSIS NA Electronically signed by: ?Cecil Handy DO Verified: ??09/30/2023 12:51 ??Pathologist Performed at: ??-[facility] Dept[facility] [place]ology, [place] [address] Sheet Heater Helper: Montana Tam MD, FCAP, ??CLIA Certificate: [id number] SPECIMEN(S) SUBMITTED Retrieved from archives on 05/22/2023 for testing: Case [id number] block A1 CLINICAL INFORMATION NA SPECIMEN PROCESSING NA 09/30/2023 12:51 PM EDT [facility] Archival Case 05/22/2023 10: 52 AM EST 05/22/2023 10:52 AM EST Cecil Lorenzo DO PATHOLOGY/CYTOLOGY ORDERABLES [facility] [place] [address] documented in this encounter Visit Diagnoses Not on filedocumented in this encounter Care Teams Blasting Worker Relationship Specialty Start Date End Date Tiny Walters, BATSHEVA [address] [place] [phone] PCP - General Family Medicine 12/01/19 04/07/24 documented as of this encounter
--- OUTSIDE RECORDS SUMMARY | 2024-05-31 01:22 | XMS_ITS | Encounter Summary ---
Author Organization [facility] [place] [address] Care Team Providers Care Break Up Worker Name Role Phone Romeo Tiny Lindsay APRN Primary Care Provider +1- [phone] Encounter Details Date Type Department Care Team (Latest Contact Info) Description 05/21/2023 Travel Social History Tobacco Use Types Packs/Day [...] AM EST Office Visit Hematology/Oncolog y at [address] [phone] Tej Tipton MD [address] [facility] [address] HEMATOLOGY & [place] [address] Stacy Valle APRN [facility] [place] [address] 06/01/2024 10:30 AM EST Scheduled View Only [place] [address] 06/01/2024 11:00 AM EST Office Visit [place] [address] Luis E Chin MD [facility] [place] [address] 06/04/2024 8:30 AM EST Hospital Encounter [place] [address] Rayshawn Suresh MD [facility] [place] [address] 06/04/2024 8:30 AM EST - 06/04/2024 1:05 PM EST Surgery [place] [address] Rayshawn Suresh MD [facility] [place] [address] @THORACOSCOPY, SURG; W PLEURODESIS (WRVU 10.83) Scheduled [...] on filedocumented in this encounter Care Teams Break Up Worker Relationship Specialty Start Date End Date Tiny Walters APRN [address] [place] [phone] PCP - General Family Medicine 12/01/19 04/07/24 documented as of this encounter
--- OUTSIDE RECORDS SUMMARY | 2024-05-31 01:22 | XMS_ITS | Encounter Summary ---
Author Organization [facility] [place] [address] Care Team Providers Care Class A Lineman Name Role Phone Tiny Walters APRN Primary Care Provider +1- [phone] Encounter Details Date Type Department Care Team (Latest Contact Info) Description 05/06/2022 9:30 AM EST TH Visit (TeleHealth) Hematology/Oncology at [address] [phone] Gume Christy MD [address] [place] [address] [place] [address] Hypothyroidism, unspecified type Social History Tobacco Use [...] as of this encounter Progress Notes * Gume Christy MD - 05/06/2022 9:30 AM EST [facility] Head/Neck Oncology - [facility] Telephone Visit Patient Active Problem List Diagnosis ??? 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 ??? Drug-induced nausea and vomiting ??? Choking due to phlegm in larynx ??? Dehydration ??? Aspiration pneumonia of right lower lobe ??? Dysphagia, oropharyngeal phase ??? Raynaud's syndrome History: Telephone follow-up to discuss his levothyroxine replacement therapy. A few months ago he was having some curious problems with insomnia which he attributed to his levothyroxine. He was taking 50 mcg/day at the time. We evaluated this with a TSH level that showed hypothyroidism, at 25.975. He had missed a number of doses just prior to this lab test, and thus we were not at all sure where things stood physiologically. At that phone call 03/11/2022 we agreed to proceed with a therapeutic trial of levothyroxine 25 mcg/day. After he been on that dose for about 6 weeks, on 04/23 TSH was repeated and returned 23.485. Zen tells me that ever since Thanksgiving his family has been plagued with various upper respiratory illnesses, with cough, fever, runny nose; he succumbed to several of these himself. This is made it hard for him to evaluate whether or not he is sleeping well or poorly due to the levothyroxine. Besides the URI problems he has no overt symptoms that would suggest major hypo or hyperthyroidism. He has been taking 25 mcg of levothyroxine properly. Impression: Radiation related hypothyroidism, with a curious sensitivity to the medication if that is indeed the cause of his insomnia. According to the TSH value he is still under-replaced. Plan: 1. We agreed to uptitrate to 50 mcg/day. New prescription sent into his pharmacy. 2. Recheck the TSH in mid June, and follow-up by phone thereafter. 3. If he still having major side effects from a physiologically inadequate dose, I will recommend expert consultation with an channel cementer insole machine. The patient verbally consented to this telephone visit and understands that the visit may be billed, similar to a clinic office visit.I provided care to the patient today via telephone or videotelephone call. Gume Christy MD, FACP Hematology/Oncology Section, [facility] furniture finisher, [employer] [facility] [phone] documented in this encounter Plan of Treatment Upcoming Encounters Date Type Department Care Team (Late st Contact Info) Description 05/31/2024 11:30 AM EST Office Visit Hematology/Oncolog y at [address] [phone] Tej Tipton MD [address] [facility] HEMATOLOGY & [place] [address] Stacy Valle APRN [facility] [place] [address] 06/01/2024 10:30 AM EST Scheduled View [place] [phone] 06/01/2024 11:00 AM EST Office Visit [place] [phone] Luis E Chin MD [facility] [place] [address] 06/04/2024 8:30 AM EST Hospital Encounter [place] [phone] Rayshawn Suresh MD [facility] [place] [address] 06/04/2024 8:30 AM EST - 06/04/2024 1:05 PM EST [place] [address] Rayshawn Suresh MD [facility] [place] [address] @THORACOSCOPY, SURG; W PLEURODESIS (WRVU 10.) Scheduled Procedures Name Priority Associated Diagnoses Date/Ti me @THORACOSCOPY, SURG; W PLEURODESIS (WRVU 10.83) metastatic pleural effusion 06/04/2024 8:30 AM EST BRONCHOSCOPY, DIAGNOSTIC (WRVU 2.53) metastatic pleural effusion 06/04/2024 8:30 AM EST DIONNA\ALMA.CATHETER,TUNNELED, WITH SQ PORT OR PUMP OVER 5YR (WRVU 5.79) metastatic pleural effusion 06/04/2024 8:30 AM EST documented as of this encounter Visit Diagnoses Diagnosis Hypothyroidism, unspecified type documented in this encounter Care Teams Class A Lineman Relationship Specialty Start Date End Date Tiny Walters, BATSHEVA [address] [place] [phone] PCP - General Family Medicine 12/01/19 04/07/24 documented as of this encounter
--- OUTSIDE RECORDS SUMMARY | 2024-05-31 01:22 | XMS_ITS | Encounter Summary ---
[place] [address] Care Team Providers Care Corrections Lieutenant Name Role Phone Tiny Walters APRN Primary Care Provider +1- [phone] Reason for Referral * Consultation (Routine) - Closed Specialty Diagnoses / Procedures Referred By Fritz lanier Referred To Contact Hematology and Oncology Diagnoses Malignant neoplasm of head, face, and neck Tiny Walters APRN [address] [place] [address] [facility] On[facility] [address] [place] [address] Referral ID Status Reason Start Date Expiration Date V isits Requested Visits Authorized [id number] Closed Consult, Test & Treat PCP Updated and/or Approved 10/14/2022 04/13/2023 6 6 Encounter Details Date Type Department Care Team (Late st Contact Info) Description 10/31/2022 Transcribe Orders eDH Incoming Referrals [phone] Tiny Walters APRN [address] [place] [address] Malignant neoplasm of head, face, and neck Social History Tobacco Use Types Packs/Day Years [...] EST Office Visit Hematology/Oncolog y at [address] [phone] Tej Tipton MD [address] [facility] [place] [address] Stacy Valle APRN [facility] [place] [address] 06/01/2024 10:30 AM EST Scheduled View Only Radiation [place] [phone] 06/01/2024 11:00 AM EST Office Visit Radiation [place] [address] Luis E Chin MD [facility] [place] [address] 06/04/2024 8:30 AM EST Hospital Encounter [place] [address] Rayshawn Suresh MD [facility] [place] [address] 06/04/2024 8:30 AM EST - 06/04/2024 1:05 PM EST Surgery [place] [phone] Rayshawn Suresh MD [facility] [place] [address] @THORACOSCOPY, SURG; W PLEURODESIS (WRVU 10.83) Scheduled [...] Referral to Hematology and Oncology Outpatient Referral Routine Malignant neoplasm of head, face, and neck Ordered: 10/31/2022 documented as of this encounter Visit Diagnoses Diagnosis Malignant neoplasm of head, face, and neck documented in this encounter Care Teams Corrections Lieutenant Relationship Specialty Start Date End Date Tiny Walters, BATSHEVA [address] [place] [phone] PCP - General Family Medicine 12/01/19 04/07/24 documented as of this encounter
--- OUTSIDE RECORDS SUMMARY | 2024-05-31 01:22 | XMS_ITS | Encounter Summary ---
Author Organization [facility] [place] [address] Care Team Providers Care Learning And Development Manager Name Role Phone Tiny Walters APRN Primary Care Provider +1- [phone] Encounter Details Date Type Department Care Team (Latest Contact Info) Description 11/07/2022 1:30 PM EDT TH Visit (TeleHealth) Hematology [place] [address] Gume Christy MD [address] [place] [address] [place] [address] Hypothyroidism, unspecified type Social History Tobacco Use [...] Progress Notes * Gume Christy MD - 11/07/2022 1:30 PM EDT [facility] HEAD AND NECK CANCER PROGRAM Medical Oncology Phone Note Follow-up to review TSH results. His thyroid replacement has been difficult to manage, as he had a paradoxical increase in fatigue when starting levothyroxine. He has had several dose adjustments to try to get his TSH within normal limits. From a cancer standpoint he feels quite well. Swallowing function is good. Taste sensation is fairly good. Moderate xerostomia persists. Overall energy level is excellent, he is biking and running several times per week. He continues on levothyroxine 75 mcg/day. No real side effects from this. Raynaud's well controlled with PRN medication. He's not using Salagen as it did not help xerostomia. Outpatient Medications Marked as Taking for the 11/07/22 encounter (TH Visit (TeleHealth)) with Gume Christy MD Medication Sig Dispense Refill loratadine (Claritin) 10 mg Tablet Take 10 mg by mouth daily as needed. Ibuprofen 200 mg Capsule Take 600 mg by mouth every 6 hours as needed. amLODIPine-benazepril (LOTREL) 5-10 mg Capsule Take 1 capsule by mouth daily as needed. albuteroL 90 mcg/actuation HFA Aerosol Inhaler Inhale 2 puffs into the lungs every 4 hours as needed for Wheezing. Use with spacer Physical exam Limited to voice which is clearly phonated and clearly articulated. Labs: TSH done at [facility] 11/04 was 7.115 mcIu/mL. This is an improvement from the previous value of about 12. Impression: Clinically he seems to be euthyroid on the current dose, The TSH is slightly above normal. Overall I would favor continuing this dose. Plan: Continue levothyroxine 75 mcg/day. I have sent in a new prescription for 90-day supply with 3refills. Follow-up per [facility] [place] head and neck standard calendar. Recommend rechecking the TSH at his next scheduled visit in March with radiation oncology. Gume Christy MD, FACP Hematology/Oncology Section, [facility] [place] [place] functional manager, [employer] [facility][phone]/fax [phone] [facility]: [phone] documented in this encounter Plan of Treatment Upcoming Encounters Date Type Department Care Team (Late st Contact Info) Description 05/31/2024 11:30 AM EST Office Visit Hematology/Oncolog y at [address] [phone] Tej Tipton MD [address] [facility] [place] [address] Stacy Valle APRN [facility] [place] [address] 06/01/2024 10:30 AM EST Scheduled View Only Radiation Oncology at [place] [phone] 06/01/2024 11:00 AM EST Office Visit Radiation Oncology at [place] [phone] Luis E Chin MD [facility] [place] [address] 06/04/2024 8:30 AM EST Hospital Encounter Main Operating Room [place] [phone] Rayshawn Suresh MD [facility] [place] [address] 06/04/2024 8:30 AM EST - 06/04/2024 1:05 PM EST Surgery [place] [phone] Rayshawn Suresh MD [facility] [place] [address] @THORACOSCOPY, SURG; W PLEURODESIS (WRVU 10.83) Scheduled [...] type documented in this encounter Care Teams Learning And Development Manager Relationship Specialty Start Date End Date Tiny Walters APRN [address] [place] [address] PCP - General Family Medicine 12/01/19 04/07/24 documented as of this encounter
--- OUTSIDE RECORDS SUMMARY | 2024-05-31 01:22 | XMS_ITS | Encounter Summary ---
Author Organization [facility] [place] [address] Care Team Providers Care Subscription Agent Name Role Phone Tiny Walters APRN Primary Care Provider +1- [phone] Reason for Visit * Reason Onset Date Comments Follow-up 02/11/2022 ? When getting t sh Encounter Details Date Type Department Care Team (Late Contact Info) Description 02/11/2022 Telephone Hematology/Oncology at [address] [phone] Taniya Barajas RN Follow-up (? When getting tsh) Social History Tobacco Use Types Packs/Day Years [...] Telephone Encounter - Taniya Barajas RN - 02/11/2022 11:58 AM EDT Called and left Zen a message that he is due to have TSH level drawn and checked at [facility]. Asked him to call us when he gets this done. Refaxed lab slip to [facility]. Will check again next week and review with Dr. Christy when it is in. documented in this encounter Plan of Treatment Upcoming Encounters Date Type Department Care Team (Late Contact Info) Description 05/31/2024 11:30 AM EST Office Visit Hematology/Oncolog y at [address] [phone] Tej Tipton MD [address]00 [facility] HEMATOLOGY & [place] [address] Stacy Valle APRN [facility] [place] [address] 06/01/2024 10:30 AM EST Scheduled View Only [place] [phone] 06/01/2024 11:00 AM EST Office Visit [place] [address] Luis E Chin MD [facility] [place] [address] 06/04/2024 8:30 AM EST Hospital Encounter [place] [address] Rayshawn Suresh MD [facility] [place] [address] 06/04/2024 8:30 AM EST - 06/04/2024 1:05 PM EST Surgery [place] [address] Rayshawn Suresh MD [facility] [place] [address] @THORACOSCOPY, SURG; W PLEURODESIS (WRVU 10.83) Scheduled [...] on filedocumented in this encounter Care Teams Subscription Agent Relationship Specialty Start Date End Date Tiny Walters APRN [address] [place] [phone] PCP - General Family Medicine 12/01/19 04/07/24 documented as of this encounter
--- OUTSIDE RECORDS SUMMARY | 2024-05-31 01:22 | XMS_ITS | Encounter Summary ---
Author Organization [facility] [place] [address] Care Team Providers Care Senior Production Planner Name Role Phone Tiny Walters APRN Primary Care Provider +1- [phone] Encounter Details Date Type Department Care Team (Late Contact Info) Description 04/29/2023 Telephone Hematology/Oncology at [address] [phone] Stacy Valle [facility] [place] [address] Social History Tobacco Use Types Packs/Day Years [...] AM EST Office Visit Hematology/Oncolog y at [address] [phone] Tej Tipton MD [address] [facility] HEMATOLOGY & [place] [address] Stacy Valle SAW [employer] [facility] [place] [address] 06/01/2024 10:30 AM EST Scheduled View Only [place] [address] 06/01/2024 11:00 AM EST Office Visit [place] [address] Luis E Chin MD [facility] [place] [address] 06/04/2024 8:30 AM EST Hospital Encounter [place] [address] Rayshawn Suresh MD [facility] [place] [address] 06/04/2024 8:30 AM EST - 06/04/2024 1:05 PM EST Surgery [place] [address] Rayshawn Suresh MD [facility] [place] [address] @THORACOSCOPY, SURG; W PLEURODESIS (WRVU 10.83) Scheduled [...] type documented in this encounter Care Teams Senior Production Planner Relationship Specialty Start Date End Date Tiny Walters APRN [address] [place] [phone] PCP - General Family Medicine 12/01/19 04/07/24 documented as of this encounter
--- OUTSIDE RECORDS SUMMARY | 2024-05-31 01:22 | XMS_ITS | Encounter Summary ---
Author Organization [facility] Address [facility] [place] [address] Care Team Providers Care Fondant Cooker Name Role Phone Tiny Walters APRN Primary Care Provider +1- [phone] Encounter Details Date Type Department Care Team (Late st Contact Info) Description 12/10/2021 1:45 PM EDT Office Visit Hematology/Oncology at [address] [phone] Gume Christy MD [address] [place] [address] [place] [address] Tonsil cancer; Raynaud's disease without gangrene; Xerostomia Social History Tobacco Use Types Packs/Day Years [...] Sign Reading Time Taken Comments Blood Pressure 123/70 12/10/2021 2:03 PM EDT Pulse 58 12/10/2021 2:03 PM EDT Temperature 36.4 ??C (97.5 ??F) 12/10/2021 2:03 PM ED T Respiratory Rate 16 12/10/2021 2:03 PM EDT Oxygen Saturation 100% 12/10/2021 2:03 PM EDT Inhaled Oxygen Concentration - - Weight 75.2 kg (165 lb 12.8 oz) 12/10/2021 2:03 PM EDT Height 170.2 cm (5' 7.01) 12/10/2021 2:03 PM ED T Body Mass Index 25.96 12/10/2021 2:03 PM EDT documented in this encounter Progress Notes * Gume Christy MD - 12/10/2021 1:45 PM EDT Images from the original note were not included. Hematology/Oncology Clinic [facility] Patient Active Problem List Diagnosis ??? 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 Dysphagia, oropharyngeal phase ??? Raynaud's syndrome Med Onc checkup. Now 1 year + 8 months from completion. Overall he is doing quite well. Energy level is excellent, and he is working full-time. He was in training for the [employer] but had trouble sustaining a 3-hour run because it was hard to get in and out of calories during the running, doing prior to his dry mouth that required copious fluids. Xerostomia is indeed a significant problem. He is able to get by with water but it is inconvenient.He got some benefit from a trial prescription of pilocarpine, and would like to continue this medication if insurance coverage will make it affordable. Taste sensation is steadily improving, still not quite normal; acid foods still sting the mouth. He has had no dental problems, gets regular checkups, and uses prescription fluoride toothpaste. He is having no trouble with obstructive dysphagia or aspiration. He does however occasionally get nasal regurgitation. He has no symptoms that would suggest regional or distant metastatic disease. He has a history of Raynaud's syndrome of the fingers, but since his treatment he has also gotten occasional vasospastic symptoms in his tongue. The tongue muscle goes into spasm and he has trouble talking; visibly the tongue turns pale. The symptoms last for about 10 minutes. They seem to be more common when he is out running in cold weather. He does not drink any cold liquids and so is not clear if this challenge induces the phenomenon or not. At his June [address] Mao Rae radiation oncology he had a fiberoptic laryngoscopy, which showed no abnormalities besides postradiation changes. Physical exam: He looks well, healthy, lean and fit. Oral exam shows mild xerosis. There is slight asymmetry of the soft palate, the right side being a bit higher than the left but it appears to move normally. I see no signs of tumor. The tongue moves normally. No palpable lesions in the tongue or floor of mouth or buccal mucosa. Dentition in excellent shape. There is no trismus. Neck exam shows excellent cosmesis, no adenopathy, no lymphedema The lungs are clear Cardiac exam is normal with bradycardia typical for a long-distance runner Abdomen is benign without hepatosplenomegaly or masses Extremities normal, no clubbing cyanosis or edema Neurologic exam is normal. Reflexes 1+. Cranial nerves normal. No recent laboratory studies or x-rays Impression: Clinically HILARIO 1 year and 8 months from completion of chemoradiation for locally advanced p16 positive tonsil cancer. Excellent functional recovery. He does have residual dry mouth of some severity, and seems to have developed Raynaud's syndrome of the tongue since treatment, and a background of digital Raynaud's syndrome of longstanding. This is an unusual syndrome but has been described in the medical literature in case reports, including 1 patient who developed in the tongue following chemoradiation. Plan: 1. I renewed his prescription for pilocarpine 5 mg to be taken 3-4 times per day. We will send in his prescription to his pharmacy, and he will call to check on the scott, and fruit picker machine operator the prescription if it is affordable. If it is not, it may be worth investigating the [facility] pharmacy service. 2. He met with Azra Billy RD to discuss options for foods that he would be able to eat during a prolonged run. 3. I requested that he go to the laboratory today for TSH blood test, since roughly 50% of patientstreated with radiotherapy to the head neck with developed hypothyroidism. 4. Follow-up per [facility] head and neck team standards. Gume Christy MD, FACP shield installer Hematology/Oncology Section [facility]/[address] [address] Voice recognition software used for this note; please excuse epitaxial reactor operator errors. I personally reviewed past medical, surgical, family medical histories, reviewed current medications, vital signs, labs, and performed full review of systems. These are documented below the narrativefor clarity and succinctness. Outpatient Medications Marked as Taking for the 12/10/21 encounter (Office Visit) with Melissa Christy MD Medication Sig Dispense Refill ??? loratadine (Claritin) 10 mg Tablet Take 10 mg by mouth daily as needed. ??? amLODIPine-benazepril (LOTREL) 5-10 mg Capsule Take 1 capsule by mouth daily as needed. Current Facility-Administered Medications for the 12/10/21 encounter (Office Visit) with Gume Chrsity MD Medication Dose Route Frequency Provider Last Rate Last Admin ??? lidocaine (Xylocaine) 4 % (40 mg/mL) solution Topical (Top) Once PRN Jose Martin Rae MD Review of Systems: Review of systems is negative for other WATERWORKS CHIEF ENGINEER, bone, pulmonary, cardiac, GI, , extremity, neurologic, endocrine, skin, constitutional, emotional, or functional problems. Vitals Flowsheet Row Office Visit from 12/10/2021 in Hematology/Oncology at [facility] Weight 75.2 kg (165 lb 12.8 oz) Height 170.2 cm (5' 7.01) BSA (Calculated - sq m) 1.89 sq meters BMI (Calculated) 25.96 Temp 36.4 ??C (97.5 ??F) Temp src Temporal Heart Rate 58 Heart Rate Source Right, NIBP Resp 16 BP 123/70 BP Location Right arm Patient Position Sitting SpO2 100 % Karnofsky Score 100 Sensory Neuropathy Grade 1 [tongue at times] Body surface area is 1.89 meters squared. Wt Readings from Last 3 Encounters: 12/10/21 75.2 kg (165 lb 12.8 oz) 02/05/21 78.9 kg (174 lb) 11/20/20 77.6 kg (171 lb) No results found for this or any previous visit (from the past 72 hour(s)). ++++++++++++++++++++++++++++++++++++++++++++++++++++ documented in this encounter Plan of Treatment Upcoming Encounters Date Type Department Care Team (Late st Contact Info) Description 05/31/2024 11:30 AM EST Office Visit Hematology/Oncolog y at [address] [phone] Tej Tipton MD [address] [facility] [address] HEMATOLOGY & [place] [address] Stacy Valle APRN [facility] [place] [address] 06/01/2024 10:30 AM EST Scheduled View [place] [address] 06/01/2024 11:00 AM EST Office [place] [address] Luis E Chin MD [facility] [place] [address] 06/04/2024 8:30 AM EST Hospital Encounter [place] [address] Rayshawn Suresh MD [facility] [place] [address] 06/04/2024 8:30 AM EST - 06/04/2024 1:05 PM EST Surgery [place] [phone] Rayshawn Suresh MD [facility] [place] [address] @THORACOSCOPY, SURG; W PLEURODESIS (WRVU 10.83) Scheduled [...] Diagnosis Tonsil cancer Malignant neoplasm of tonsil Raynaud's disease without gangrene Xerostomia Disturbance of salivary secretion documented in this encounter Care Teams Fondant Cooker Relationship Specialty Start Date End Date Tiny Walters, BATSHEVA [address] [place] [phone] PCP - General Family Medicine 12/01/19 04/07/24 documented as of this encounter
--- OUTSIDE RECORDS SUMMARY | 2024-05-31 01:22 | XMS_ITS | Encounter Summary ---
Author Organization [facility] Address [facility] [place] [address] Care Team Providers Care Drawing Tracer Name Role Phone Tiny Walters APRN Primary Care Provider +1- [phone] Reason for Visit * Reason Onset Date Comments Labs Only 09/04/2022 Encounter Details Date Type Department Care Team (Late st Contact Info) Description 09/04/2022 Telephone Hematology/Oncology at [address] [phone] Sarah Dunne RN Labs Only Social History Tobacco Use Types Packs/Day Years [...] encounter Miscellaneous Notes * Telephone Encounter - Gume Christy MD - 09/04/2022 9:59 AM EDT [facility] HEAD [facility]ECK [facility] Medical Oncology Phone Note Repeat TSH 09/02/2022 while he's been on levothyroxine 50 mcg/day is 12.36. Will increase dose to 75 mcg/day, recheck TSH in ~2 months with phone visit to follow to assess tolerability. Gume Christy MD, FACP Hematology/Oncology Section, [facility] property assessment monitor, [facility] [employer] at [facility]:[phone]/fax [phone] [facility]: [phone] * Telephone Encounter - Sarah Dunne RN - 09/04/2022 9:55 AM EDT TSH done 09/02/22 at [facility] was 12.36, reviewed with Dr Christy who advises pt increase his synthroid to 75 mcg daily and recheck TSH level in [address] Christy will order increased dose to [facility] in [place]. Pt is in agreement with plan and will go 11/04 for lab. Will call pt to review results once received. Advised to call sooner with any concerns. ----- Message from Jessica Jaeger RN sent at 09/02/2022 12:19 PM EDT ----- Regarding: FW: tsh at [facility] Getting TSH drawn at [facility] on 09/02. Review with Westley/Elli. Call patient with results and plan documented in this encounter Plan of Treatment Upcoming Encounters Date Type Department Care Team (Late st Contact Info) Description 05/31/2024 11:30 AM EST Office Visit Hematology/Oncolog y at [address] [phone] Tej Tipton MD [address] [facility] HEMATOLOGY & [place] [address] Stacy Valle APRN [facility] [place] [address] 06/01/2024 10:30 AM EST Scheduled View [place] [phone] 06/01/2024 11:00 AM EST Office [place] [phone] Luis E Chin MD [facility] [place] [address] 06/04/2024 8:30 AM EST Hospital Encounter [place] [address] Rayshawn Suresh MD [facility] [place] [address] 06/04/2024 8:30 AM EST - 06/04/2024 1:05 PM EST Surgery [place] [address] Rayshawn Suresh MD [facility] [place] [address] @THORACOSCOPY, SURG; W PLEURODESIS (WRVU 10.83) Scheduled [...] type documented in this encounter Care Teams Drawing Tracer Relationship Specialty Start Date End Date Tiny Walters APRN [address] [place] [phone] PCP - General Family Medicine 12/01/19 04/07/24 documented as of this encounter
--- OUTSIDE RECORDS SUMMARY | 2024-05-31 01:22 | XMS_ITS | Encounter Summary ---
Author Organization [facility] [place] [address] Care Team Providers Care Finishing Machine Tender Name Role Phone Tiny Walters APRN Primary Care Provider +1- [phone] Encounter Details Date Type Department Care Team ([facility] Contact Info) Description 09/02/2022 Telephone Hematology/Oncology at [address] [phone] Jessica Jaeger RN Social History [...] Telephone Encounter - Jessica Jaeger RN - 09/02/2022 11:39 AM EDT ----- Message from Taniya Barajas RN sent at 07/30/2022 11:00 AM EDT ----- Regarding: tsh at [facility] Please look for tsh results at [facility] and review with anca or Ron sanon RN Follow-Up Note Patient has not had repeat labs drawn yet. He will go for TSH today. Will look for results tomorrowor Wed and review with Dr. Christy/Anca Dunaway APRN. Lab slip faxed to [facility] lab. documented in this encounter Plan of Treatment Upcoming Encounters Date Type Department Care Team ([facility] st Contact Info) Description 05/31/2024 11:30 AM EST Office Visit Hematology/Oncolog y at [address] [phone] Tej Tipton MD [address] [facility] HEMATOLOGY & [place] [address] Stacy Valle APRN [facility] [place] [address] 06/01/2024 10:30 AM EST Scheduled View [place] [phone] 06/01/2024 11:00 AM EST Office Visit [place] [phone] Luis E Chin MD [facility] [place] [address] 06/04/2024 8:30 AM EST Hospital Encounter [place] [phone] Rayshawn Suresh MD [facility] [place] [address] 06/04/2024 8:30 AM EST - 06/04/2024 1:05 PM EST Surgery [place] [address] Rayshawn Suresh MD [facility] [place] [address] @THORACOSCOPY, SURG; W PLEURODESIS (WRVU 10.) Scheduled [...] on filedocumented in this encounter Care Teams Finishing Machine Tender Relationship Specialty Start Date End Date Tiny Walters, BATSHEVA [address] [place] [phone] PCP - General Family Medicine 12/01/19 04/07/24 documented as of this encounter
--- OUTSIDE RECORDS SUMMARY | 2024-05-31 01:22 | XMS_ITS | Encounter Summary ---
Author Organization [facility] [place] [address] Care Team Providers Care Registration Representative Name Role Phone Tiny Walters APRN Primary Care Provider +1- [phone] Reason for Visit * Reason Comments Medication Refill Encounter Details Date Type Department Care Team (Late Contact Info) Description 04/28/2023 Refill Hematology/Oncology at [address] [phone] Gume Christy MD [address] [place] [address] [place] [address] Hypothyroidism, unspecified type Social History Tobacco Use [...] EST Office Visit Hematology/Oncolog y at [address] [phone] Tej Tipton MD [address] [facility] HEMATOLOGY [place] [address] Stacy Valle APRN [facility] [place] [address] 06/01/2024 10:30 AM EST Scheduled View Only Radiation [place] [address] 06/01/2024 11:00 AM EST Office Visit Radiation Oncology at [place] [phone] Luis E Chin MD [facility] [place] [address] 06/04/2024 8:30 AM EST Hospital Encounter Main Operating Room [place] [phone] Rayshawn Suresh MD [facility] [place] [address] 06/04/2024 8:30 AM EST - 06/04/2024 1:05 PM EST Surgery [place] [phone] Rayshawn Suresh MD [facility] [place] [address] @THORACOSCOPY, SURG; W PLEURODESIS (WRVU 10.83) Scheduled [...] type documented in this encounter Care Teams Registration Representative Relationship Specialty Start Date End Date Tiny Walters APRN [address] [place] [phone] PCP - General Family Medicine 12/01/19 04/07/24 documented as of this encounter
--- OUTSIDE RECORDS SUMMARY | 2024-05-31 01:22 | XMS_ITS | Encounter Summary ---
Author Organization [facility] [place] [address] Care Team Providers Care Federal Appellate Law Clerk Name Role Phone Tiny Walters APRN Primary Care Provider +1- [phone] Reason for Visit * Reason Onset Date Comments Follow-up 02/18/2022 Labs due Encounter Details Date Type Department Care Team (Late Contact Info) Description 02/18/2022 Telephone Hematology/Oncology at [address] [phone] Taniya Barajas RN Follow-up (Labs due) Social History Tobacco Use Types Packs/Day Years [...] Telephone Encounter - Taniya Barajas RN - 02/18/2022 8:51 AM EDT Called and left message for Zen to get a TSH drawn. Also followed up with letter stating to letus know when and where he is getting tsh drawn so we can look for results. Lab slip enclosed in letter. documented in this encounter Plan of Treatment Upcoming Encounters Date Type Department Care Team (Late Contact Info) Description 05/31/2024 11:30 AM EST Office Visit Hematology/Oncolog y at [address] [phone] Tej Tipton MD [address] [facility] [address] HEMATOLOGY & [place] [address] Stacy Valle APRN [facility] [place] [address] 06/01/2024 10:30 AM EST Scheduled View [place] [address] 06/01/2024 11:00 AM EST Office Visit [place] [phone] Luis E Chin MD [facility] [place] [address] 06/04/2024 8:30 AM EST Hospital Encounter [place] [address] Rayshawn Suresh MD [facility] [place] [address] 06/04/2024 8:30 AM EST - 06/04/2024 1:05 PM EST Surgery [place] [address] Rayshawn Suresh MD [facility] [place] [address] @THORACOSCOPY, SURG; W PLEURODESIS (WRVU 10.83) Scheduled [...] on filedocumented in this encounter Care Teams Federal Appellate Law Clerk Relationship Specialty Start Date End Date Tiny Walters APRN [address] [place] [phone] PCP - General Family Medicine 12/01/19 04/07/24 documented as of this encounter
--- OUTSIDE RECORDS SUMMARY | 2024-05-31 01:22 | XMS_ITS | Encounter Summary ---
Author Organization [facility] [place] [address] Care Team Providers Care Parking Cashier Name Role Phone Tiny Walters APRN Primary Care Provider +1- [phone] Reason for Visit * Reason Onset Date Comments Follow-up 12/13/2021 High TSH Encounter Details Date Type Department Care Team ([facility] Info) Description 12/13/2021 Telephone Hematology/Oncology at [address] [phone] Taniya Barajas RN Follow-up (High TSH) Social History Tobacco Use Types Packs/Day Years [...] Telephone Encounter - Taniya Barajas RN - 12/13/2021 12:58 PM EDT Pt's TSH came back at 36.43, per Dr. Christy he will start him on 50 mcg levothyroxine a day and recheck tsh in 2 months around at [facility]. Let pt know about this. He states that the salagen medication will cost him $100/a month and it is too high for him to pay so he will not be getting that pr escription. He will call with questions or concerns. documented in this encounter Plan of Treatment Upcoming Encounters Date Type Department Care Team ([facility] Contact Info) Description 05/31/2024 11:30 AM EST Office Visit Hematology/Oncolog y at [address] [phone] Tej Tipton MD [address] [facility] HEMATOLOGY & [place] [address] Stacy Valle APRN [facility] [place] [address] 06/01/2024 10:30 AM EST Scheduled View Only [place] [phone] 06/01/2024 11:00 AM EST Office Visit [place] [phone] Luis E Chin MD [facility] [place] [address] 06/04/2024 8:30 AM EST Hospital Encounter [place] [phone] Rayshawn Suresh MD [facility] [place] [address] 06/04/2024 8:30 AM EST - 06/04/2024 1:05 PM EST Surgery [place] [address] Rayshawn Suresh MD [facility] [place] [address] @THORACOSCOPY, SURG; W PLEURODESIS (WRVU 10.83) Scheduled [...] on filedocumented in this encounter Care Teams Parking Cashier Relationship Specialty Start Date End Date Tiny Walters, BATSHEVA [address] [place] [phone] PCP - General Family Medicine 12/01/19 04/07/24 documented as of this encounter
--- OUTSIDE RECORDS SUMMARY | 2024-05-31 01:22 | XMS_ITS | Encounter Summary ---
Author Organization [facility] [place] [address] Care Team Providers Care Wire Coiler Name Role Phone Tiny Walters APRN Primary Care Provider +1- [phone] Reason for Visit * Reason Comments Medication Refill Encounter Details Date Type Department Care Team (Late Contact Info) Description 11/24/2022 Refill Hematology/Oncology at [address] [phone] Gume Christy MD [address] [place] [address] [place] [address] Hypothyroidism, unspecified type Social History Tobacco Use [...] EST Office Visit Hematology/Oncolog y at [address] [phone] Tej Tipton MD [facility] HEMATOLOGY [place] [address] Stacy Valle APRN [facility] [place] [address] 06/01/2024 10:30 AM EST Scheduled View Only [place] [address] 06/01/2024 11:00 AM EST Office Visit Radiation Oncology at [place] [phone] Luis E Chin MD [facility] [place] [address] 06/04/2024 8:30 AM EST Hospital Encounter Main Operating Room [place] [phone] Rayshawn Suresh MD [facility] [place] [address] 06/04/2024 8:30 AM EST - 06/04/2024 1:05 PM EST Surgery [place] [phone] Rayshawn Suresh MD [facility] [place] [address] @THORACOSCOPY, SURG; W PLEURODESIS (WRVU 10.83) Scheduled [...] type documented in this encounter Care Teams Wire Coiler Relationship Specialty Start Date End Date Tiny Walters APRN [address] [place] [phone] PCP - General Family Medicine 12/01/19 04/07/24 documented as of this encounter
--- OUTSIDE RECORDS SUMMARY | 2024-05-31 01:22 | XMS_ITS | Encounter Summary ---
Author Organization [facility] Address [facility] [place] [address] Care Team Providers Care Burrer Machine Name Role Phone Tiny Walters APRN Primary Care Provider +1- [phone] Encounter Details Date Type Department Care Team (Late st Contact Info) Description 05/21/2023 9:00 AM EST Office Visit Radiation Oncology at [address] [phone] Jose Martin Rae MD [facility] [place] [address] Tonsil cancer Social History Tobacco Use Types [...] Sign Reading Time Taken Comments Blood Pressure 127/82 05/21/2023 9:15 AM EST Pulse 92 05/21/2023 9:15 AM EST Temperature 37.1 ??C (98.8 ??F) 05/21/2023 9 :15 AM EST Respiratory Rate 16 05/21/2023 9:15 AM EST Oxygen Saturation 100% 05/21/2023 9:1 5 AM EST Inhaled Oxygen Concentration - - Weight 78.7 kg (173 lb 9.6 oz) 05/21/19 9:15 AM EST with boots Height - - Body Mass Index 27.18 12/10/2021 2:03 PM EDT documented in this encounter Progress Notes * Jose Martin Rae MD - 05/21/2023 9:00 AM EST Images from the original note were not included. Radiation Oncology Follow Up Patient Visit PATIENT NAME: Zen Pickering DATE OF : 1980 ONCOLOGIC HISTORY DIAGNOSIS / TREATMENT OVERVIEW Zen Pickering is a 39 y.o. 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 Definitive chemoradiotherapy. TREATMENT DETAILS Treatment Intent Curative Site Treated Primary, involved nodes, elective ruth basins Technique VMAT, SIB Adaptive Plan Required Yes Concurrent Chemo Yes ONC BCA CHEMO (AMB) 02/29/2020 03/06/2020 03/13/2020 Day, Cycle Day 1, Cycle 1 Day 8, Cycle 1 Day 15, Cycle 1 CISplatin (Platinol) IV 40 mg/m2/dose 40 mg/m2/dose 40 mg/m2/dose ONC BCA CHEMO (AMB) 03/20/2020 03/27/2020 04/03/2020 Day, Cycle Day 22, Cycle 1 Day 29, Cycle 1 Day 36, Cycle 1 CISplatin (Platinol) IV 40 mg/m2/dose 40 mg/m2/dose 40 mg/m2/dose ONC BCA CHEMO (AMB) 04/10/2020 Day, Cycle Day 43, Cycle 1 CISplatin (Platinol) IV 40 mg/m2/dose Clinical Trial No TECHNICAL DETAILS Total Dose: 70 Gy @ 2 Gy/fxn, 59.5 Gy @ 1.7 Gy/fxn, 56 Gy @ 1.6 Gy/fxn PLAN IMAGES Post-therapy course: PET-CT 10/19/20: IMPRESSION No evidence of recurrent malignancy or distant metastatic disease. Time from therapy completion: 3 year ~ 1 month INTERVAL HISTORY: no interval issues Currently, he has the following symptoms: Symptom Description Intervention Pain Burning with certain foods, otherwise no pain. Dysphagia Limited by dryness primarily Xerostomia / Dysgeusia Moderate xerostomia, moderate dysgeusia Water. Salagen helped but too expensive. Neck Fibrosis / Lymphedema / Pain Intermittent cramping of neck musculature. Flexeril Dental Using fluoride, seeing dentist Nutrition Issues / Weight Loss Weight stable Feeding Tube Not present Skin No issues Otalgia / Hearing Changes No issues Smoking Status Never smoker Voice Changes Denies. Cold can result in tongue cramping. Other No Issues ECOG PS: 0 Grade ECOG PERFORMANCE STATUS 0 Fully active, able to carry on all pre-disease performance without restriction 1 Restricted in physically strenuous activity but ambulatory and able to carry out work of a light or sedentary nature 2 Ambulatory and capable of all selfcare but unable to carry out any work activities; up and about > 50% of waking hours 3 Capable of only limited selfcare; confined to bed or chair more than 50% of waking hours 4 Completely disabled; cannot carry on any selfcare; totally confined to bed or chair EXAM Vitals: 05/21/23 0915 BP: 127/82 Patient Position: Sitting Pulse: 92 Resp: 16 Temp: 37.1 ??C (98.8 ??F) TempSrc: Temporal SpO2: 100% Weight: 78.7 kg (173 lb 9.6 oz) Physical Exam Constitutional: Appearance: He is well-developed. HENT: Mouth/Throat: Comments: Visual inspection of OC and OP revealed no evidence of suspicious masses or lesions. Palpation revealed no suspicious masses and no induration along the tongue. Moisture moderate. Teeth in good repair. Eyes: Pupils: Pupils are equal, round, and reactive to light. Neck: Comments: Palpation reveals no adenopathy in cervical, SCLV, ICLV ruth basins. Moderate fibrosis bilateral neck. Cardiovascular: Rate and Rhythm: Normal rate. Pulmonary: Effort: Pulmonary effort is normal. Breath sounds: Normal breath sounds. Skin: Findings: No erythema. Neurological: Mental Status: He is alert and oriented to person, place, and time. Cranial Nerves: No cranial nerve deficit. Psychiatric: Behavior: Behavior normal. Procedures: Flexible laryngoscopy was performed. The right naris was anesthetized with aerosolized lidocaine, and the laryngoscope was passed without difficulty. The nasopharynx was visualized and was without masses or lesions. The oropharynx, larynx, and piriform sinuses were visualized and were without masses or lesions. The vocal cords apposed without difficulty. Mild foreshortening of epiglottis. HISTORY Allergies as of 05/21/2023 (No Known Allergies) Past Medical History: Diagnosis Date Asthma Raynaud's disease Tonsil cancer Past Surgical History: Procedure Laterality Date IR G-TUBE PLACEMENT 02/11/2020 IR G-Tube Placement 02/11/2020 Jose Angel Choi MD [facility] RAD IR MEDIPORT PLACEMENT 02/11/2020 IR Mediport Placement 02/11/2020 Jose Angel Choi MD [facility] RAD IR MEDIPORT REMOVAL 08/10/2020 IR Mediport Removal 08/10/2020 Marquis Crawford MD [facility] RAD PRO LARYNGOSCOPY, DIRCT, OP SCOPE, BIOPSY Bilateral 01/05/2020 LARYNGOSCOPY, MICROSCOPE, WITH BIOPSY (WRVU 3.55) performed by Yrn Banuelos MD at [facility] MAIN OR PRO REMOVAL OF TONSILS, 12+ Y/O Left 01/28/2020 TONSILLECTOMY AGE 12 AND OVER (WRVU 3.45) performed by Yrn Banuelos MD at [facility] MAIN OR Social History Socioeconomic History Marital status: Spouse name: Not on file Number of children: Not on file Years of education: Not on file Highest education level: Not on file Occupational History Not on file Tobacco Use Smoking status: Never Smokeless tobacco: Never Vaping Use Vaping Use: Never used Substance and Sexual Activity Alcohol use: Yes [...] on file Housing Stability: Not on file No family history on file. ROS: I reviewed and agree with the nursing review of systems accompanying this encounter. The remainder of the comprehensive review of systems was negative with the exception of the pertinent positives and negatives noted above. MEDICATIONS Current Outpatient Medications on File Prior to Visit Medication Sig Dispense Refill cyclobenzaprine (Flexeril) 10 mg tablet See Instructions, PRN as needed for muscle spasm, one po qhs prn spasm, # 20 tab, 0 Refill(s), Pharmacy: [facility] levothyroxine (Synthroid) 75 mcg tablet Take 1 tablet by mouth daily. 90 tablet 3 loratadine (Claritin) 10 mg Tablet Take 10 mg by mouth daily as needed. Ibuprofen 200 mg Capsule Take 600 mg by mouth every 6 hours as needed. amLODIPine-benazepril (LOTREL) 5-10 mg Capsule Take 1 capsule by mouth daily as needed. albuteroL 90 mcg/actuation HFA Aerosol Inhaler Inhale 2 puffs into the lungs every 4 hours as needed for Wheezing. Use with spacer pilocarpine (Salagen) 5 mg Tablet Take 1-2 tablets by mouth 3 times daily. (Patient not taking: Reported on 11/08/2022) 180 tablet 11 No current facility-administered medications on file prior to visit. IMAGING/LAB I have personally reviewed the imaging reports and images referenced in the oncologic hx and agree with the assessment as stated. Further pertinent imaging data below ASSESSMENT / PLAN Disease Status: HILARIO clinically. We discussed the use of NavDx for surveillance and he wished to proceed with evaluation. As he did not have HPV testing, only p16, we will attempt to determine his HPVstatus. We discussed imaging for surveillance if NavDx is not feasible. We discussed that he is still at risk of recurrence and requires continued surveillance Toxicity: Xerostomia / Dysgeusia: Significant xerostomia. Moderate dysgeusia. Tolerating. Dysphagia: limited by dryness Oral sensitivity: discussed avoiding triggering foods Dental: seeing dentist, using fluoride Thyroid Function: to check at time of NavDx. FU: follow per [facility] grid TSH => NCH documented in this encounter Plan of Treatment Upcoming Encounters Date Type Department Care Team (Late st Contact Info) Description 05/31/2024 11:30 AM EST Office Visit Hematology/Oncolog y at [address] [phone] Tej Tipton MD [address] [facility] HEMATOLOGY & [place] [address] Stacy Valle APRN [facility] [place] [address] 06/01/2024 10:30 AM EST Scheduled View [place] [address] 06/01/2024 11:00 AM EST Office [place] [address] Luis E Chin MD [facility] [place] [address] 06/04/2024 8:30 AM EST Hospital Encounter [place] [phone] Rayshawn Suresh MD [facility] [place] [address] 06/04/2024 8:30 AM EST - 06/04/2024 1:05 PM EST Surgery [place] [address] Rayshawn Suresh MD [facility] [place] [address] @THORACOSCOPY, SURG; W PLEURODESIS (WRVU 10.83) Scheduled [...] tonsil documented in this encounter Care Teams Burrer Machine Relationship Specialty Start Date End Date Tiny Walters APRN [address] [place] [phone] PCP - General Family Medicine 12/01/19 04/07/24 documented as of this encounter
--- OUTSIDE RECORDS SUMMARY | 2024-05-31 01:22 | XMS_ITS | Encounter Summary ---
Author Organization [facility] Address [facility] [place] [address] Care Team Providers Care Seamer Elastic Band Name Role Phone Tiny Walters APRN Primary Care Provider +1- [phone] Encounter Details Date Type Department Care Team (Latest Contact Info) Description 07/30/2022 10:30 AM EDT TH Visit (TeleHealth) Hematology/Oncology at [address] [phone] Elli Dunaway APRN [facility] [place] [address] Hypothyroidism, unspecified type Social History Tobacco Use [...] as of this encounter Progress Notes * Elli Dunaway APRN - 07/30/2022 10:30 AM EDT Call to Zen to review TSH level- TSH today is 11.464. He is taking the levothyroxine 50mcg as prescribed. Taking first thing in the morning on an empty stomach. Still having some insomnia but he relates it to having small children. No other complaints today. We will repeat his TSH in 4 weeks. He will continue levothyroxine as prescribed. documented in this encounter Plan of Treatment Upcoming Encounters Date Type Department Care Team (Late st Contact Info) Description 05/31/2024 11:30 AM EST Office Visit Hematology/Oncolog y at [address] [phone] Tej Tipton MD [address] [facility] HEMATOLOGY & [place] [address] Stacy Valle APRN [facility] [place] [address] 06/01/2024 10:30 AM EST Scheduled View Only [place] [phone] 06/01/2024 11:00 AM EST Office Visit [place] [phone] Luis E Chin MD [facility] [place] [address] 06/04/2024 8:30 AM EST Hospital Encounter [place] [phone] Rayshawn Suresh MD [facility] [place] [address] 06/04/2024 8:30 AM EST - 06/04/2024 1:05 PM EST Surgery [place] [address] Rayshawn Suresh MD [facility] [place] [address] @THORACOSCOPY, SURG; W PLEURODESIS (WRVU 10.83) Scheduled [...] type documented in this encounter Care Teams Seamer Elastic Band Relationship Specialty Start Date End Date Tiny Walters, WIRELESS INTERNET INSTALLER [address] [place] [phone] PCP - General Family Medicine 12/01/19 04/07/24 documented as of this encounter
--- OUTSIDE RECORDS SUMMARY | 2024-05-31 01:22 | XMS_ITS | Encounter Summary ---
Author Organization [facility] Address [facility] [place] [address] Care Team Providers Care Dermatopathologist Name Role Phone Tiny Walters APRN Primary Care Provider +1- [phone] Reason for Visit * Reason Onset Date Comments Medication Refill 01/27/2023 Encounter Details Date Type Department Care Team (Late Contact Info) Description 01/27/2023 Refill Hematology/Oncology at [address] [phone] Gume Christy MD [address] [place] [address] [place] [address] Hypothyroidism, unspecified type Social History Tobacco Use [...] AM EST Office Visit Hematology/Oncolog y at [address] [phone] Tej Tipton MD [address] [facility] HEMATOLOGY & [place] [address] Stacy Valle APRN [facility] [place] [address] 06/01/2024 10:30 AM EST Scheduled View Only Radiation Oncology at [place] [address] 06/01/2024 11:00 AM EST Office Visit Radiation Oncology at [place] [phone] Luis E Chin MD [facility] [place] [address] 06/04/2024 8:30 AM EST Hospital Encounter Main Operating Room [place] [phone] Rayshawn Suresh MD [facility] [place] [address] 06/04/2024 8:30 AM EST - 06/04/2024 1:05 PM EST Surgery Main Operating Room [place] [phone] Rayshawn Suresh MD [facility] [place] [address] @THORACOSCOPY, SURG; W PLEURODESIS (WRVU 10.83) Scheduled [...] type documented in this encounter Care Teams Dermatopathologist Relationship Specialty Start Date End Date Tiny Walters APRN [address] [place] [phone] PCP - General Family Medicine 12/01/19 04/07/24 documented as of this encounter
--- OUTSIDE RECORDS SUMMARY | 2024-05-31 01:22 | XMS_ITS | Encounter Summary ---
Author Organization [facility] [place] [address] Care Team Providers Care Lease Out Worker Name Role Phone Tiny Walters APRN Primary Care Provider +1- [phone] Encounter Details Date Type Department Care Team (Late st Contact Info) Description 03/11/2022 Telephone Hematology [place] [phone] Gume Christy MD [address] [place] [address] [place] [address] Social History Tobacco Use Types Packs/Day Years [...] Telephone Encounter - Gume Christy MD - 03/11/2022 3:42 PM EST [facility]ECK [facility] Medical Oncology Phone Note Zen has been taking 50 mcg of levothyroxine per day since his last visit when we found his TSH to be elevated. He is taking this properly, on an empty stomach with just water. Since starting thishe has had trouble with insomnia. He wakes up several times at night, fully awake. He is also notedlow-level nausea and some evenings. Otherwise he feels well. His energy level is fine, and he has been very busy at work. He denies fevers, sweats, or tremulousness. His TSH was rechecked on 03/06 at [facility], and the value was 25.975. Because of the insomnia he had stopped taking the levothyroxine, but he had been back on it for an uncertain number of days prior to this lab being drawn. 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 The intermittent nature of his dosing and the slow reaction kinetics of TSH make interpretation of the situation difficult. Insomnia is not a terribly common side effect of levothyroxine at these doses, but the time correlation is highly suggestive. Plan: We discussed the confusing situation, and agreed that he will take 25 mcg/day (half of his scored tablets), keep track of any side effects, and we will recheck the TSH and touch base by phone in about 6 weeks. Gume Christy MD, FACP Hematology/Oncology Section, [facility] heel seat pounder, [facility] [employer] at [facility]:[phone]/fax [phone] [facility]: [phone] documented in this encounter Plan of Treatment Upcoming Encounters Date Type Department Care Team (Late st Contact Info) Description 05/31/2024 11:30 AM EST Office Visit Hematology/Oncolog y at [address] [phone] Tej Tipton MD [facility] DR HEMATOLOGY & [place] [address] Stacy Valle APRN [facility] [place] [address] 06/01/2024 10:30 AM EST Scheduled View Only [place] [address] 06/01/2024 11:00 AM EST Office Visit [place] [phone] Luis E Chin MD [facility] [place] [address] 06/04/2024 8:30 AM EST Hospital Encounter [place] [address] Rayshawn Suresh MD [facility] [place] [address] 06/04/2024 8:30 AM EST - 06/04/2024 1:05 PM EST Surgery [place] [phone] Rayshawn Suresh MD [facility] [place] [address] @THORACOSCOPY, SURG; W PLEURODESIS (WRVU 10.83) Scheduled [...] type documented in this encounter Care Teams Lease Out Worker Relationship Specialty Start Date End Date Tiny Walters APRN [address] [place] [phone] PCP - General Family Medicine 12/01/19 04/07/24 documented as of this encounter
--- OUTSIDE RECORDS SUMMARY | 2024-05-31 01:22 | XMS_ITS | Encounter Summary ---
Author Organization [facility] Address [place] [address] Care Team Providers Care Jewelry Consultant Name Role Phone Tiny Walters APRN Primary Care Provider +1- [phone] Encounter Details Date Type Department Care Team (Late st Contact Info) Description 12/13/2021 Telephone Hematology [place] [phone] Gume Christy MD [address] [place] [address] [place] [address] Social History Tobacco Use Types Packs/Day Years [...] Telephone Encounter - Gume Christy MD - 12/13/2021 1:06 PM EDT [facility]ECK [facility] Medical Oncology Phone Note TSH drawn earlier this week returned elevated at 36.43. This is consistent with radiation related hypothyroidism. Plan: I will send in a prescription for levothyroxine 50 mcg to be taken once a day. I called him and left a message. Recheck TSH in approx 2 months Gume Christy MD, FACP Hematology/Oncology Section, [facility] shift foreman, [facility] [employer] at [facility]:[phone]/fax [phone] [facility] [place]: [phone] documented in this encounter Plan of Treatment Upcoming Encounters Date Type Department Care Team (Late st Contact Info) Description 05/31/2024 11:30 AM EST Office Visit Hematology/Oncolog y at [address] [phone] Tej Tipton MD [address] [facility] HEMATOLOGY & [place] [address] Stacy Valle APRN [facility] [place] [address] 06/01/2024 10:30 AM EST Scheduled View Only [place] [address] 06/01/2024 11:00 AM EST Office Visit [place] [address] Luis E Chin MD [facility] [place] [address] 06/04/2024 8:30 AM EST Hospital Encounter Main [place] [address] Rayshawn Suresh MD [facility] [place] [address] 06/04/2024 8:30 AM EST - 06/04/2024 1:05 PM EST Surgery Main [place] [address] Rayshawn Suresh MD [facility] [place] [address] @THORACOSCOPY, SURG; W PLEURODESIS (WRVU 10.83) Scheduled [...] type documented in this encounter Care Teams Jewelry Consultant Relationship Specialty Start Date End Date Tiny Walters APRN [address] [place] [phone] PCP - General Family Medicine 12/01/19 04/07/24 documented as of this encounter
--- OUTSIDE RECORDS SUMMARY | 2024-05-31 01:22 | XMS_ITS | Encounter Summary ---
Author Organization Formerly [facility] Address [facility] [place] [address] Care Team Providers Care Radio Antenna Installer Name Role Phone Tiny Walters APRN Primary Care Provider [phone]- [phone] Encounter Details Date Type Department Care Team (Late st Contact Info) Description 01/30/2022 1:30 PM EDT Office Visit Radiation Oncology at [address] [phone] Jose Martin Rae MD [facility] [place] [address] Hypothyroidism, unspecified type Social History Tobacco Use [...] Sign Reading Time Taken Comments Blood Pressure 124/69 01/30/2022 1:45 PM EDT Pulse - - Temperature 36.2 ??C (97.2 ??F) 01/30/2022 1 :45 PM EDT Respiratory Rate 20 01/30/2022 1:45 PM EDT Oxygen Saturation 100% 01/30/2022 1:4 5 PM EDT Inhaled Oxygen Concentration - - Weight 77.7 kg (171 lb 6.4 oz) 01/31/20 1:45 PM EDT with shoes Height - - Body Mass Index 26.84 12/10/2021 2:03 PM EDT documented in this encounter Progress Notes * Jose Martin Rae MD - 01/30/2022 1:30 PM EDT Images from the original note were not included. 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 Definitive chemoradiotherapy. ? TREATMENT DETAILS Treatment Intent Curative Site Treated Primary, involved nodes, elective ruth basins Technique VMAT, SIB Adaptive Plan Required Yes Concurrent Chemo Yes ONC BCA CHEMO (AMB) 02/29/2020 03/06/2020 03/13/2020 Day, Cycle Day 1, Cycle 1 Day 8, Cycle 1 Day 15, Cycle 1 CISplatin (Platinol) IV 40 mg/m2/dose 40 mg/m2/dose 40 mg/m2/dose ?? ONC BCA CHEMO (AMB) 03/20/2020 03/27/2020 04/03/2020 Day, Cycle Day 22, Cycle 1 Day 29, Cycle 1 Day 36, Cycle 1 CISplatin (Platinol) IV 40 mg/m2/dose 40 mg/m2/dose 40 mg/m2/dose ?? ONC BCA CHEMO (AMB) 04/10/2020 Day, Cycle Day 43, Cycle 1 CISplatin (Platinol) IV 40 mg/m2/dose Clinical Trial No TECHNICAL DETAILS ? Total Dose: 70 Gy @ 2 Gy/fxn, 59.5 Gy @ 1.7 Gy/fxn, 56 Gy @ 1.6 Gy/fxn ? PLAN IMAGES ? Post-therapy course: Time from therapy completion: 1 year ~ 10 months INTERVAL HISTORY: no interval issues Currently, he has the following symptoms: Symptom Description Intervention Pain Burning with certain foods, otherwise no pain. Dysphagia Limited by dryness primarily Xerostomia / Dysgeusia High level xerostomia with thick secretions, moderate dysgeusia Water. Salagen helped but too expensive. Neck Fibrosis / Lymphedema / Pain Occasional cramping of neck musculature. He notes diminished muscle stamina. Dental Using fluoride, seeing dentist Nutrition Issues [...] totally confined to bed or chair EXAM There were no vitals filed for this visit. Physical Exam Constitutional: Appearance: He is well-developed. [...] foreshortening of epiglottis. HISTORY Allergies as of 01/30/2022 ??? (No Known Allergies) Past Medical History: Diagnosis Date ??? Asthma ??? Raynaud's disease ??? Tonsil cancer Past Surgical History: Procedure Laterality Date ??? IR G-TUBE PLACEMENT 02/11/2020 IR G-Tube Placement 02/11/2020 Jose Angel Choi MD [facility] ??? IR MEDIPORT PLACEMENT 02/11/2020 IR Mediport Placement 02/11/2020 Jose Angel Choi MD [facility] ??? IR MEDIPORT REMOVAL 08/10/2020 IR Mediport Removal 08/10/2020 Marquis Crawford MD [facility] ??? PRO LARYNGOSCOPY, DIRCT, OP SCOPE, BIOPSY Bilateral 01/05/2020 LARYNGOSCOPY, MICROSCOPE, WITH BIOPSY (WRVU 3.55) performed by Yrn Banuelos MD at [facility] MAIN OR ??? PRO REMOVAL OF TONSILS, 12+ Y/O Left 01/28/2020 TONSILLECTOMY AGE 12 AND OVER (WRVU 3.45) performed by Yrn Banuelos MD at [facility] MAIN OR Social History Socioeconomic History ??? Marital status: Spouse name: Not on file ??? Number of children: Not on file ??? Years of education: Not on file ??? Highest education level: Not on file Occupational History ??? Not on file Tobacco Use ??? Smoking status: Never Smoker ??? Smokeless tobacco: Never Used Vaping Use ??? Vaping Use: Never used Substance and Sexual Activity ??? Alcohol use: Yes Alcohol/week: 1.0 standard drink Types: 1 Cans of beer per week ??? Drug use: Never ??? Sexual activity: Not on file Other Topics Concern ??? Not on file Social History Narrative . Three children, Twins (boy and girl 9 years old) , two year old female. 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 ROS: I reviewed and agree with the nursing review of systems accompanying this encounter. The remainder of the comprehensive review of systems was negative with the exception of the pertinent positives and negatives noted above. MEDICATIONS Current Outpatient Medications on File Prior to Visit Medication Sig Dispense Refill ??? levothyroxine (Synthroid) 50 mcg Tablet Take 1 tablet by mouth daily. 90 tablet 3 ??? pilocarpine (Salagen) 5 mg Tablet Take 1-2 tablets by mouth 3 times daily. 180 tablet 11 ??? loratadine (Claritin) 10 mg Tablet Take 10 mg by mouth daily as needed. ??? Ibuprofen 200 mg Capsule Take 600 mg by mouth every 6 hours as needed. ??? amLODIPine-benazepril (LOTREL) 5-10 mg Capsule Take 1 capsule by mouth daily as needed. ??? albuteroL 90 mcg/actuation HFA Aerosol Inhaler Inhale 2 puffs into the lungs every 4 hours as needed for Wheezing. Use with spacer Current Facility-Administered Medications on File Prior to Visit Medication Dose Route Frequency Provider Last Rate Last Admin ??? lidocaine (Xylocaine) 4 % (40 mg/mL) solution Topical (Top) Once PRN Jose Martin Rae MD IMAGING/LAB I have personally reviewed the imaging reports and images referenced in the oncologic hx and agree with the assessment as stated. Further pertinent imaging data below ASSESSMENT / PLAN Disease Status: HILARIO clinically. ?? We discussed that he is still at risk of recurrence and requires continued surveillance Toxicity: ?? Xerostomia / Dysgeusia: Significant xerostomia. Moderate dysgeusia. Tolerating. ?? Dysphagia: limited by dryness ?? Oral sensitivity: discussed avoiding triggering foods ?? Dental: seeing dentist, using fluoride ?? Thyroid Function: elevated at 34 as of 11/2021. He has not started his levothyroxine. We discussed the need to start levothyroxine and he voiced understanding. FU: follow per HN grid documented in this encounter Plan of Treatment Upcoming Encounters Date Type Department Care Team (Late st Contact Info) Description 05/31/2024 11:30 AM EST Office Visit Hematology/Oncolog y at [address] [phone] Tej Tipton MD [address] [facility] HEMATOLOGY & [place] [address] Stacy Valle APRN [facility] [place] [address] 06/01/2024 10:30 AM EST Scheduled View [place] [address] 06/01/2024 11:00 AM EST Office Visit [place] [address] Luis E Chin MD [facility] [place] [address] 06/04/2024 8:30 AM EST Hospital Encounter [place] [address] Rayshawn Suresh MD [facility] [place] [address] 06/04/2024 8:30 AM EST - 06/04/2024 1:05 PM EST Surgery [place] [address] Rayshawn Suresh MD [facility] [place] [address] @THORACOSCOPY, SURG; W PLEURODESIS (WRVU 10.83) Scheduled [...] type documented in this encounter Care Teams Radio Antenna Installer Relationship Specialty Start Date End Date Tiny Walters APRN [address] [place] [phone] PCP - General Family Medicine 12/01/19 04/07/24 documented as of this encounter
--- OUTSIDE RECORDS SUMMARY | 2024-05-31 01:22 | XMS_ITS | Encounter Summary ---
Author Organization Formerly [facility] [place] [address] Care Team Providers Care Group Fitness Department Head Name Role Phone Tiny Walters APRN Primary Care Provider +1- [phone] Encounter Details Date Type Department Care Team (Late st Contact Info) Description 08/16/2021 Telephone Radiation Oncology at [address] [phone] Dionna Gardner RN Social History Tobacco Use Types Packs/Day [...] encounter Miscellaneous Notes * Telephone Encounter - Dionna Gardner RN - 08/16/2021 3:19 PM EDT Radiation Oncology Nurse Telephone Note [facility] [place] [place] Unable to reach patient. ??Message left on voicemail regarding intent of call and requesting callback. Call him back if we do not hear back from him. ?? ----- Message ----- From: Dionna Gardner RN Sent: 08/15/2021 ??12:00 AM EDT To: [facility] Rad Onc Nurse Subject: call rafael pt ? He is returning from vacation 08/08. ??Read 07/26 note Call him if we haven;t heard from him ----- Message ----- From: Dionna Gardner RN Sent: 07/26/2021 ?? 5:11 PM EDT To: [facility] Rad On[facility] Nurse Check to see if salagen is helping 08/16/21 Patient returned call. He states that he does not want to start the 3 day supply of Salagento only find out if is helpful and doesn't know if he can afford it or not. He is afraid if a 3 days supply cost $10 how much a month supply will cost. He states his dry mouth is tolerable. He has been using an OTC chewing gum for dry mouth that is helpful especially when he exercises. He has tried Biotene mouthwash, but it doesn't last long. I explained that we can help with any prior auths that his insurance company might require. We really won't know how much it will cost until we give it a try. He reiterates that he is OK with what is using OTC and it is tolerable. He states he doesn't plan to try the Salagen. Dr Rae informed via this note documented in this encounter Plan of Treatment Upcoming Encounters Date Type Department Care Team (Late st Contact Info) Description 05/31/2024 11:30 AM EST Office Visit Hematology/Oncolog y at [address] [phone] Tej Tipton MD [address] [facility] [address] HEMATOLOGY & [place] [address] Stacy Valle APRN [facility] [place] [address] 06/01/2024 10:30 AM EST Scheduled View Only [place] [address] 06/01/2024 11:00 AM EST Office Visit [place] [address] Luis E Chin MD [facility] [place] [address] 06/04/2024 8:30 AM EST Hospital Encounter [place] [address] Rayshawn Suresh MD [facility] [place] [address] 06/04/2024 8:30 AM EST - 06/04/2024 1:05 PM EST Surgery [place] [address] Rayshawn Suresh MD [facility] [place] [address] @THORACOSCOPY, SURG; W PLEURODESIS (WRVU 10.83) Scheduled [...] on filedocumented in this encounter Care Teams Group Fitness Department Head Relationship Specialty Start Date End Date Tiny Walters APRN [address] [place] [phone] PCP - General Family Medicine 12/01/19 04/07/24 documented as of this encounter
--- OUTSIDE RECORDS SUMMARY | 2024-05-31 01:23 | XMS_ITS | Encounter Summary ---
Author Organization [facility] Address [facility] [place] [address] Care Team Providers Care Grid Caster Name Role Phone Tiny Walters APRN Primary Care Provider [phone] Reason for Referral * Diagnostic Test (Routine) - Closed Specialty Diagnoses / Procedures Referred By Fritz lanier Referred To Contact Radiology Diagnoses Tonsil cancer Procedures NM PET CT Standard Plus Head and Neck Yrn Banuelos MD [facility] [place] [address] [place] [address] Referral ID Status Reason Start Date Expiration Date V isits Requested Visits Authorized [id number] Closed Specialty Service Requested 10/19/2020 11/18/2020 1 1 Encounter Details Date Type Department Care Team (Late st Contact Info) Description 07/20/2020 2:30 PM EDT Office [place] [phone] Yrn Banuelos MD [facility] [place] [address] Tonsil cancer (Primary Dx) Social History Tobacco Use Types Packs/Day Years Used Date Smoking Tobacco: Never Smokeless Tobacco: Never Alcohol Use Standard Drinks/Week Comments Yes 1 (1 standard drink = 0.6 oz pur e alcohol) Sex and Gender Information Value Date Recorded Sex Assigned at Not on file Gender Identity Not on file Sexual Orientation Not on file documented as of this encounter Progress Notes * Yrn Banuelos MD - 07/20/2020 2:30 PM EDT Subjective: Patient ID: Zen Pickering is a 39 y.o. male. 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 Patient presented with solid followed by liquid odynophagia, progressing to R otalgia, headache andtrismus Summer 2019; and noted to have a very large R tonsil non-ker SCCa extending to intrinsic tongue, pterygoids, FOM. At presentation he had nonpalable bilateral cervical adenopathy Treatment: Definitive chemoradiation (weekly cisplatin) instituted 02/29/2020; course c/b RLL pneumonia 03/21/2020; completed 04/19/2020, cumulative cisplatin 280 mg/m2 Definitive chemoradiotherapy completed 04/19/20 ?? The patient is seen with his . He has had a slow but steady overall improvement in his post therapy symptoms. He had developed significant degree of fatigue and tiredness as well as dysphagia andodynophagia with weight loss which she is slowly regaining. He says that his taste for the most part is very slow to improve. Many familiar foods do not taste right. He does have parageusia to many foods and does not tolerate anything that is been angry or sweet. His xerostomia is leading the patient to need to walk around with a water bottle. He wakes up at night once or twice for hydration purposes. He has not had any dental issues. He has not been aware of any bleeding from his mouth and his reports that for the first time, his snoring has resolved. He has a longstanding history of snoring but this may not have been related to his tumor. He remains a non-smoker and nondrinker. He denies any new throat symptoms. He is seen after completing his scheduled post therapy PET/CT scan. Past Medical History: Diagnosis Date ??? Asthma ??? Raynaud's disease ??? Tonsil cancer Past Surgical History: Procedure Laterality Date ??? IR G-TUBE PLACEMENT 02/11/2020 IR G-Tube Placement 02/11/2020 Jose Angel Choi MD [facility] INTERVENTIONL RAD ??? IR MEDIPORT PLACEMENT/EXCHANGE 02/11/2020 IR Mediport Placement 02/11/2020 Jose Angel Choi MD [facility] INTERVENTIONL RAD ??? PRO LARYNGOSCOPY, DIRCT, OP SCOPE, BIOPSY Bilateral 01/05/2020 LARYNGOSCOPY, MICROSCOPE, WITH BIOPSY (WRVU 3.55) performed by Yrn Banuelos MD at [facility] MAIN OR ??? PRO REMOVAL OF TONSILS, 12+ Y/O Left 01/28/2020 TONSILLECTOMY AGE 12 AND OVER (WRVU 3.45) performed by Yrn Banuelos MD at [facility] MAIN OR Patient Active Problem List Diagnosis Code ??? 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 Raynaud's syndrome I73.00 ??? Gastrostomy tube in place Z93.1 ??? Dysphagia, oropharyngeal phase R13.12 ??? Aspiration pneumonia of right lower lobe J69.0 ??? Dehydration E86.0 ??? Choking due to phlegm in larynx T17.310A ??? Drug-induced nausea and vomiting R11.2, T50.905A Current Outpatient Medications: ??? Ibuprofen 200 mg Capsule, Take 600 mg by mouth every 6 hours as needed., Disp: , Rfl: ??? amLODIPine-benazepril (LOTREL) 5-10 mg Capsule, Take 1 capsule by mouth daily as needed., Disp:, Rfl: ??? albuteroL 90 mcg/actuation HFA Aerosol Inhaler, Inhale 2 puffs into the lungs every 4 hours as needed for Wheezing. Use with spacer, Disp: , Rfl: No current facility-administered medications for this visit. Facility-Administered Medications Ordered in Other Visits: ??? sodium chloride 0.9 % (flush) flush 10-20 mL, 10-20 mL, Intravenous, Q1 Min PRN, Jose Martin Rae MD, 20 mL at 07/20/20 0933 No Known Allergies Review of Systems: A comprehensive Review of Systems is completed and except as noted in the HPI isnegative for constitutional, neurologic, respiratory, cardiac, vascular, immune, GI, , MSK, endocrine, skin, and functional systems which are reviewed. No family history on file. There is no pertinent family history of otolaryngology problems. Social History Socioeconomic History ??? Marital status: Spouse name: Not on file ??? Number of children: Not on file ??? Years of education: Not on file ??? Highest education level: Not on file Occupational History ??? Not on file Tobacco Use ??? Smoking status: Never Smoker ??? Smokeless tobacco: Never Used Substance and Sexual Activity ??? Alcohol use: Yes Alcohol/week: 1.0 standard drinks Types: 1 Cans of beer per week ??? Drug use: Never ??? Sexual activity: Not on file Other Topics Concern ??? Not on file Social History Narrative . Three children, Twins (boy and girl 9 years old) , two year old female. 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 Difficulty of Paying Living Expenses: Food Insecurity: ??? Worried About Running Out of Food in the Last Year: ??? Ran Out of Food in the Last Year: Transportation Needs: ??? Lack of Transportation (Medical): ??? Lack of Transportation (Non-Medical): Physical Activity: ??? Days of Exercise per Week: ??? Minutes of Exercise per Session: Stress: ??? Feeling of Stress : Social Connections: ??? Frequency of Communication with Friends and Family: ??? Frequency of Social Gatherings with Friends and Family: ??? Attends [employer] Services: ??? Active Member of Clubs or Organizations: ??? Attends Club or Organization Meetings: ??? Marital Status: Intimate Partner Violence: ??? Fear of Current or Ex-Partner: ??? Emotionally Abused: ??? Physically Abused: ??? Sexually Abused: Review of Systems Objective: Physical Exam Vitals and nursing note reviewed. Constitutional: General: He is not in acute distress. Appearance: He is well-developed. He is not diaphoretic ( Speech is not slurred and he has no respiratory issues, no hoarseness ). HENT: Head: Normocephalic. Jaw: Pain on movement present. No trismus (3 cm, no pain). Salivary Glands: Right salivary gland is not diffusely enlarged (Post therapy). Right Ear: Tympanic membrane, ear canal and external ear normal. No tenderness. No middle ear effusion. Left Ear: Tympanic membrane, ear canal and external ear normal. No tenderness. No middle ear effusion. Nose: Nose normal. No nasal deformity, septal deviation or mucosal edema. Mouth/Throat: Lips: No lesions. Mouth: Mucous membranes are moist. No oral lesions. Dentition: Normal dentition. No dental caries. Tongue: No lesions (Previously seen lesion is completely resolved. He does have fasciculations). Tongue does not deviate from midline. Palate: No mass. Pharynx: Uvula midline. No oropharyngeal exudate. Tonsils: Tonsillar exudate: No lesion visible. Tonsillar abscesses: No lesion visible. Eyes: General: No scleral icterus. Conjunctiva/sclera: Conjunctivae normal. Pupils: Pupils are equal, round, and reactive to light. Neck: Thyroid: No thyroid mass or thyromegaly. Vascular: No carotid bruit. Trachea: No tracheal deviation. Pulmonary: Effort: Pulmonary effort is normal. No respiratory distress. Breath sounds: No stridor. Musculoskeletal: Cervical back: Normal range of motion and neck supple. Lymphadenopathy: Cervical: No cervical adenopathy (Skin of the neck is soft post radiation. No tenderness. No palpable mass or adenopathy.). Skin: General: Skin is warm. Findings: No erythema. Neurological: Mental Status: He is alert and oriented to person, place, and time. Cranial Nerves: No cranial nerve deficit. Deep Tendon Reflexes: Reflexes are normal and symmetric. Psychiatric: Behavior: Behavior normal. Thought Content: Thought content normal. Judgment: Judgment normal. The PET CT scan that was done earlier today is reviewed with him and his : 1. No specific evidence for residual active malignancy in the bilateral pharyngeal wall and right tongue muscle. 2. A small linear focus of activity along the lateral margin of the right tongue is favored to represent post-treatment inflammation. 3. Interval decreased size and near complete metabolic resolution of previously seen adenopathy in the bilateral 2 regions. 4. Additional stable multiple subcentimeter mild to moderately FDG avid lymph nodes in the bilateral levels 2 and 3 region are favored to represent chronic reactive nodes. 5. 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 6. No distant sites of metastasis. Assessment and Plan: In view of the patient's symptoms and [...] mucosae are normal except for the following: Nasopharynx unremarkable. Oropharyngeal mucositis post radiation with some thickened saliva. There is some smoothing of the outline of the base of tongue post radiation. No concerning visible lesion noted. Mild epiglottic edema. Vocal cords are minimally edematous. Vocal cord mobility normal ASSESSMENT/PLAN: Based on today's findings patient appears to have responded very nicely to his course of chemo radiation therapy for his stage IV squamous cell carcinoma. From a functional standpoint he is recovering to a good pace. I am encouraged that he is recovering his taste and does not haveany apparent physical limitations in his neck. He needs to continue with close follow-up. Details of the findings on the PET/CT discussed with the patient and his and will plan anotherPET/CT in about 3 months. documented in this encounter Plan of Treatment Upcoming Encounters Date Type Department Care Team (Late st Contact Info) Description 05/31/2024 11:30 AM EST Office Visit Hematology/Oncolog y at [address] [phone] Tej Tipton MD [address] [facility] HEMATOLOGY & [place] [address] Stacy Valle APRN [facility] [place] [address] 06/01/2024 10:30 AM EST Scheduled View Only Radiation Oncology at [place] [phone] 06/01/2024 11:00 AM EST Office Visit Radiation Oncology at [place] [phone] Luis E Chin MD [facility] [place] [address] 06/04/2024 8:30 AM EST Hospital Encounter Main Operating Room [place] [phone] Rayshawn Suresh MD [facility] [place] [address] 06/04/2024 8:30 AM EST - 06/04/2024 1:05 PM EST Surgery Main Operating Room [place] [phone] Rayshawn Suresh MD [facility] [place] [address] @THORACOSCOPY, SURG; W PLEURODESIS (WRVU 10.83) Scheduled [...] PET CT Standard Plus Head and Neck (10/19/2020 11:41 AM EDT) Anatomical Region Laterality Modality Positron Emissio n Tomography (PET) Impressions 10/19/2020 1:15 PM EDT No evidence of recurrent malignancy or distant metastatic disease. Thank you for letting us participate in the care of this patient. ??If you are a health care provider and have any questions regarding this report, please contact the number below. ??For patients who have questions please contact the health prompt care rn that requested your imaging first. ? Electronically signed by: Natalee Marquez MD, [facility] ([phone]), at 10/19/2020 1:15 PM Narrative 10/19/2020 1:15 PM EDT EXAMINATION: NM PET CT STANDARD PLUS HEAD AND NECK CLINICAL HISTORY: See above Follow-up on history of extensive T4 right tonsil cancer. ??On PET/CT done on 07.20.20, there is mild residual activity. ??Recommendation was to repeat PET/CT TECHNIQUE: Following IV injection of 56-aamynr-0-deoxyglucose (FDG) a standard uptake of approximately 60 minutes, a noncontrast CT scan followed by a PET scan were acquired from the top of head to mid thighs. The noncontrast CT was used for anatomic localization and photon attenuation correction of the PET scan. Blood glucose level: 82 (mg/dL) FDG dose: 11 mCi COMPARISON: 07/20/2020 FINDINGS: HEAD/NECK: Previously seen mild uptake along the right lateral margin of the tongue has resolved. Previously seen right level Ib node has metabolically resolved. Increased uptake throughout the thyroid gland with unchanged appearance of the non-FDG avid low-density nodularity or cyst in the left thyroid lobe. CHEST: Of note is new FDG avidity associated with small left axillary lymph nodes. This is presumably still related to the quite recent vaccination on the left. Stable sub-[address] visualized pulmonary nodules at the right apex (axial image 109), posterior right lower lobe (axial image 147), and posterior left lower lobe (axial image 152). ABDOMEN/PELVIS: Normal activity in all soft tissue regions. SKELETON/EXTREMITIES: Unchanged decreased marrow uptake in the cervical and upper thoracic spine consistent with postradiation change. No new abnormality. Procedure Note Natalee Arellano MD - 10/19/2020 EXAMINATION: NM PET CT STANDARD PLUS HEAD AND NECK CLINICAL HISTORY: See above Follow-up on history of extensive T4 right tonsil cancer. On PET/CT doneon 07.20.20, there is mild residual activity. Recommendation was to repeatPET/CT TECHNIQUE: Following IV injection of 05-trbcqt-2-deoxyglucose (FDG) astandard uptake of approximately 60 minutes, a noncontrast CT scan followed by aPET scan were acquired from the top of head to mid thighs. The noncontrast CT wasused for anatomic localization and photon attenuation correction of the PETscan. Blood glucose level: 82 (mg/dL) FDG dose: 11 mCi COMPARISON: 07/20/2020 FINDINGS: HEAD/NECK: Previously seen mild uptake along the right lateral margin of the tonguehas resolved. Previously seen right level Ib node has metabolically resolved. Increased uptake throughout the thyroid gland with unchanged appearance ofthe non-FDG avid low-density nodularity or cyst in the left thyroid lobe. CHEST: Of note is new FDG avidity associated with small left axillary lymphnodes. This is presumably still related to the quite recent vaccination on the left. Stable sub-[address] visualized pulmonary nodules at the right apex (axialimage 109), posterior right lower lobe (axial image 147), and posterior leftlower lobe (axial image 152). ABDOMEN/PELVIS: Normal activity in all soft tissue regions. SKELETON/EXTREMITIES: Unchanged decreased marrow uptake in the cervical and upper thoracicspine consistent with postradiation change. No new abnormality. IMPRESSION No evidence of recurrent malignancy or distant metastatic disease. Thank you for letting us participate in the care of this patient. If youare a health care provider and have any questions regarding this report,please contact the number below. For patients who have questions please contactthe health prompt care rn that requested your imaging first. Yrn Banuelos MD IMG PET ORDERABLES documented in this encounter Visit Diagnoses Diagnosis Tonsil cancer- Primary Malignant neoplasm of tonsil Tonsil cancer Malignant neoplasm of tonsil documented in this encounter Care Teams Grid Caster Relationship Specialty Start Date End Date Tiny Walters APRN [address] [place] [phone] PCP - General Family Medicine 12/01/19 04/07/24 documented as of this encounter
--- OUTSIDE RECORDS SUMMARY | 2024-05-31 01:23 | XMS_ITS | Encounter Summary ---
[place] [address] Care Team Providers Care Stopping Builder Name Role Phone Tiny Walters APRN Primary Care Provider [phone] Reason for Referral * Diagnostic Test (Routine) - Closed Specialty Diagnoses / Procedures Referred By Fritz lanier Referred To Contact Radiology Diagnoses Tonsil cancer Procedures IR Mediport Removal Dominique Echavarria APRN [facility] DR HEMATOLOGY [place] [address] [place] [address] Referral ID Status Reason Start Date Expiration Date V isits Requested Visits Authorized [id number] Closed Specialty Service Requested 07/20/2020 01/20/2022 1 1 Reason for Visit * Reason Comments Follow-up Encounter Details Date Type Department Care Team (Late st Contact Info) Description 07/20/2020 1:30 PM EDT Office Visit [place] [address] Gume Christy MD [address] [place] [address] [place] [address] Dominique Echavarria APRN [facility] [address] HEMATOLOGY [place] [address] Tonsil cancer; Medication management; Gastrostomy tube in place; Mucositis due to radiation therapy; Dysphagia, oropharyngeal phase; Xerostomia Social History Tobacco Use Types Packs/Day [...] Sign Reading Time Taken Comments Blood Pressure 139/74 07/20/2020 1:24 PM EDT Pulse 63 07/20/2020 1:24 PM EDT Temperature 36.3 ??C (97.3 ??F) 07/20/2020 1:24 PM ED T Respiratory Rate 18 07/20/2020 1:24 PM EDT Oxygen Saturation 98% 07/20/2020 1:24 PM EDT Inhaled Oxygen Concentration - - Weight 73.1 kg (161 lb 3.2 oz) 07/20/2020 1:24 P M EDT Height 173 cm (5' 8.11) 07/20/2020 1:24 PM EDT Body Mass Index 24.43 07/20/2020 1:24 PM EDT documented in this encounter Progress Notes * Dominique Echavarria, BATSHEVA - 07/20/2020 1:30 PM EDT Hematology/Oncology Clinic [facility] Patient Active Problem List Diagnosis ??? Drug-induced nausea and vomiting ??? Choking due to phlegm in larynx ??? Dehydration ??? Aspiration pneumonia of right lower lobe ??? Dysphagia, oropharyngeal phase ??? Gastrostomy tube in place Balloon-retained (5 mL inflation), 16 Fr, placed by [facility] IR 02/11/2020 ??? Raynaud's syndrome ??? 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 He is now 3 months from completing treatment and is here today for routine follow up as well as imaging to assess disease response. He is reporting overall slow improvements to side effects but feels he is well. He continues to work with [facility] to improve dysphagia and has noted improvements. He does note a spot on his tongue that is still numb and foods with vinegar in them do irritate (sting) the tongue. Taste still somewhat diminished. Gagging is less. He has not used his feeding tube in the last month and all caloric intake has been by mouth. Dry mouth and fatigue are notable side effects that are bothersome. He continues to sip water constantly and uses ACT gum and lozenges to combat. Denies pain in mouth or neck, but does feel he has a pinched nerve that occasionally sends a shooting sting down his spine and legs, which occurs when he is active or looks down. He noticed this about a day or two after his first COVID19 vaccination. He has stopped taking all pain medications and is only on albuterol prn and lortelprn. Has returned to work some days at home and some in the office. Denies fevers, chills, shortness of breath, cough, headaches, dizziness, dysphagia, nausea/vomiting, diarrhea/constipation, bleeding, neuropathy and swelling in extremities All other review of systems is negative. Social History Socioeconomic History ??? Marital status: Spouse name: None ??? Number of children: None ??? Years of education: None ??? Highest education level: None Occupational History ??? None Tobacco Use ??? Smoking status: Never Smoker ??? Smokeless tobacco: Never Used Substance and Sexual Activity ??? Alcohol use: Yes Alcohol/week: 1.0 standard drinks Types: 1 Cans of beer per week ??? Drug use: Never ??? Sexual activity: None Other Topics Concern ??? None Social History Narrative . Three children, [...] Gatherings with Friends and Family: ??? Attends [employer] Services: ??? Active Member of Clubs or Organizations: ??? Attends Club or Organization Meetings: ??? Marital Status: Intimate Partner Violence: ??? Fear of Current or Ex-Partner: ??? Emotionally Abused: ??? Physically Abused: ??? Sexually Abused: History reviewed. No pertinent family history. Past Surgical History: Procedure Laterality Date ??? IR G-TUBE PLACEMENT 02/11/2020 IR G-Tube Placement 02/11/2020 Jose Angel Choi MD [facility] ??? IR MEDIPORT PLACEMENT/EXCHANGE 02/11/2020 IR Mediport Placement 02/11/2020 Jose Angel Choi MD [facility] ??? PRO LARYNGOSCOPY, DIRCT, OP SCOPE, BIOPSY Bilateral 01/05/2020 LARYNGOSCOPY, MICROSCOPE, WITH BIOPSY (WRVU 3.55) performed by Yrn Banuelos MD at [facility] MAIN OR ??? PRO REMOVAL OF TONSILS, 12+ Y/O Left 01/28/2020 TONSILLECTOMY AGE 12 AND OVER (WRVU 3.45) performed by Yrn Banuelos MD at [facility] MAIN OR No Known Allergies Current Outpatient Medications: ??? amLODIPine-benazepril (LOTREL) 5-10 mg Capsule, Take 1 capsule by mouth daily as needed., Disp:, Rfl: ??? albuteroL 90 mcg/actuation HFA Aerosol Inhaler, Inhale 2 puffs into the lungs every 4 hours as needed for Wheezing. Use with spacer, Disp: , Rfl: ??? Ibuprofen 200 mg Capsule, Take 600 mg by mouth every 6 hours as needed., Disp: , Rfl: No current facility-administered medications for this visit. Facility-Administered Medications Ordered in Other Visits: ??? sodium chloride 0.9 % (flush) flush 10-20 mL, 10-20 mL, Intravenous, Q1 Min PRN, Jose Martin Rae MD, 20 mL at 07/20/20 0933 Physical Exam: Performed separately by Dr. Ron Christy, see note Patient Vitals for the past 24 hrs: Temp Pulse Resp BP SpO2 07/20/20 1324 36.3 ??C (97.3 ??F) 63 18 139/74 98 % Labs: Last 3 wbc, hgb, hct plt Recent Labs 07/20/20 0935 WBC 3.3* HGB 13.2* HCT 37.6* PLATELET 206 Last 3 Lytes Recent Labs 07/20/20 0935 NA 137 K 4.1 CL 103 CO2 24 BUN 17 CREATININE 1.07 Last 3 LFTs Recent Labs 07/20/20 0935 AST 24 ALT 24 ALKPHOS 75 BILITOT 0.7 Last Ca, Mg, Phos Recent Labs 07/20/20 0935 CALCIUM 9.6 MAGNESIUM 0.81 Imagin07/20/20 PET/CT IMPRESSION 1. No specific evidence for residual active [...] thyroiditis. 6. No distant sites of metastasis. ?? Impression: Zen is a 39 year old male with HPV16 associated tonsil cancer who completed chemoradiation on 04/19/21 and is now 3 months from completing treatment. He is recovering as expected and it was stressed that the side effects of fatigue, dry mouth, and decreased taste buds is common and should improve with time. Imaging was reviewed with Dr. Ron Christy. His imaging was promising as there was no resi dual malignancy seen at the primary site as well as distantly. Some post- treatment inflammation is seen along with reactive nodes which we can continue to monitor, likely PET/CT in months. Plan: 1. G-tube removed in office by Dr. Ron Christy 2. Mediport removal order placed 3. Encouraged to self assess worrisome signs of disease recurrence 4. Continue rehab with [facility] 5. Follow up PET/CT in 3 months Follow up: -per head and neck grid and prn -follow up PET/CT in 3 months All questions were answered to Zen's satisfaction. He knows to call with any new questions or concerns. Dominique REYES, MANAGER COUNTRY Medical Oncology Pager [phone] * Gume Christy MD - 07/20/2020 1:30 PM EDT I saw the patient today in collaboration with Dominique Echavarria APRN. I performed the exam and PET/CT review portion of this face to face shared visit with the patient. Details of our encounter are outlined as follows: he's recovering well from chemoRT toxicity. Exam: slight R-hunter tongue deviation;trismus improved, with 24 mm interincisor distance. Mild xerosis. No visible tumor. Neck without adenopathy; excellent cosmesis, grade 1 residual hyperpigmentation, no significant lymphedema. Lungs clear, Mediport benign. Cardiac exam normal. Abdomen benign, no hepatosplenomegaly or masses. G-tube site clean. Extremities normal, without clubbing cyanosis or edema. Neurologic exam normal, cranial n erves normal save for slight rightward tongue deviation as above. CBC and chemistry panel within normal limits. I personally reviewed the PET/CT images and discussed them with the nuclear medicine physician. Theprimary tumor appears to have resolved completely. There are small foci of FDG uptake scattered in several spots in the neck, not highly suspicious for residual disease. 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 Impression: Good recovery from chemoradiation, with no clear signs of persistent disease. PET/CT isnot 100% normal, but the residual abnormalities are likely post treatment rather than active cancer. He no longer needs the G-tube. Plan: I deflated the G-tube balloon and easily removed it without discomfort to the patient. I covered the site with a dry gauze dressing, and instructed him and his on aftercare. We plan to continue clinical surveillance at our usual intervals, with a repeat PET/CT in approximately 3 months to make sure there is continued resolution of the neck FDG signal. Gume Christy MD, FACP Hematology/Oncology Section, [facility] lawn care technician, [facility] [employer] [facility] [phone] documented in this encounter Plan of Treatment Upcoming Encounters Date Type Department Care Team (Late st Contact Info) Description 05/31/2024 11:30 AM EST Office Visit Hematology/Oncolog y at [address] [phone] Tej Tipton MD [address] [facility] [place]EMATOLOGY [place] [address] Stacy Valle APRN [facility] [place] [address] 06/01/2024 10:30 AM EST Scheduled View [place] [address] 06/01/2024 11:00 AM EST Office [place] [phone] Luis E Chin MD [facility] [place] [address] 06/04/2024 8:30 AM EST Hospital Encounter [place] [address] Rayshawn Suresh MD [facility] [place] [address] 06/04/2024 8:30 AM EST - 06/04/2024 1:05 PM EST Surgery [place] [phone] Rayshawn Suresh MD [facility] [place] [address] @THORACOSCOPY, SURG; W PLEURODESIS (WRVU 10.83) Scheduled Procedures Name Priority Associated Diagnoses Date/Ti me @THORACOSCOPY, SURG; W PLEURODESIS (WRVU 10.83) metastatic pleural effusion 06/04/2024 8:30 AM EST BRONCHOSCOPY, DIAGNOSTIC (WRVU 2.53) metastatic pleural effusion 06/04/2024 8:30 AM EST DIONNA\ALMA.CATHETER,TUNNELED, WITH SQ PORT OR PUMP OVER 5YR (WRVU 5.79) metastatic pleural effusion 06/04/2024 8:30 AM EST documented as of this encounter Results * IR Mediport Removal (08/10/2020 1:53 PM EDT) Anatomical Region Laterality Modality X-Ray Angiograph y Narrative 08/10/2020 2:40 PM EDT IR Procedure Note: ??Removal of tunneled RIJ chest port. Indication: No longer requires long-term central venous access for chemotherapy. Technique: After discussing risks (including infection, hemorrhage), and benefits, patient consented to the procedure and conscious sedation.Due to the painful nature of the procedure, split doses of fentanyl and versed were administered by the IR nurse during continuous monitoring of pulse, blood pressure and oxygen saturation. ?? Maximal sterile barrier technique was utilized throughout. ??After sterile preparation of the upper chest, 7cc 1% lidocaine SQ was administered for anesthesia, and an 11 blade was used to make a 2.5 cm incision. With blunt dissection the port and catheter were dissected free and removed. ??Removal of the port reservoir, cuff, and catheter from the patient were confirmed by their identification outside the patient. ??Hemostasis obtained with manual compression at the IJ catheter entry site. Pocket was closed with resorbable 2-0 interrupted sutures and running 4-0 subcuticular suture. ?? Patient tolerated the procedure well. ??There were no immediate complications. ?? No contrast administered. ??Fluro dose: 0 ??min. ??EBL: 3 cc Impression: ??Successful removal RIJ port. Attending: I, Dr. Crawford, was present throughout the procedure. I was present during the intraservice time as documented by the IR Nurse. ?? Dominique Echavarria APRN IMG IR ORDERABLES documented in this encounter Visit Diagnoses Diagnosis Tonsil cancer Malignant neoplasm of tonsil Medication management Encounter for long-term (current) use of other medications Gastrostomy tube in place Mucositis due to radiation therapy Mucositis (ulcerative) due to antineoplastic therapy Dysphagia, oropharyngeal phase Xerostomia Disturbance of salivary secretion Tonsil cancer Malignant neoplasm of tonsil documented in this encounter Care Teams Stopping Builder Relationship Specialty Start Date End Date Tiny Walters APRN [address] [place] [phone] PCP - General Family Medicine 12/01/19 04/07/24 documented as of this encounter
--- OUTSIDE RECORDS SUMMARY | 2024-05-31 01:23 | XMS_ITS | Encounter Summary ---
[place] [address] Care Team Providers Care Building Code Inspector Name Role Phone Tiny Walters APRN Primary Care Provider +1- [phone] Reason for Referral * Diagnostic Test (Routine) - Closed Specialty Diagnoses / Procedures Referred By Fritz t Referred To Contact Radiology Diagnoses Tonsil cancer Procedures IR Mediport Removal Dominique Echavarria APRN [facility] [address] HEMATOLOGY [place] [address] [place] [address] Referral ID Status Reason Start Date Expiration Date V isits Requested Visits Authorized [id number] Closed Specialty Service Requested 07/20/2020 01/20/2022 1 1 Reason for Visit * Diagnostic Test (Routine) - Closed Specialty Diagnoses / Procedures Referred By Contkale t Referred To Contact Radiology Diagnoses Tonsil cancer Procedures IR Mediport Removal Dominique Echavarria [employer] TE[employer]ER'S AIDE [facility] HEMATOLOGY [place] [address] [facility] [place] [address] Referral ID Status Reason Start Date Expiration Date V isits Requested Visits Authorized [id number] Closed Specialty Service Requested 07/20/2020 01/20/2022 1 1 Encounter Details Date Type Department Care Team (Late st Contact Info) Description 08/10/2020 12:22 PM EDT - 08/10/2020 11:59 PM EDT Hospital [place] [address] [facility] [address] HEMATOLOGY [place] [address] Tonsil cancer Discharge Disposition: Home Social History [...] Sign Reading Time Taken Comments Blood Pressure 114/71 08/10/2020 1:45 PM EDT Pulse 56 08/10/2020 12:30 PM EDT Temperature 37.1 ??C (98.7 ??F) 08/10/2020 12:30 PM E DT Respiratory Rate 20 08/10/2020 1:45 PM EDT Oxygen Saturation 100% 08/10/2020 1:45 PM EDT Inhaled Oxygen Concentration - - Weight - - Height - - Body Mass Index - - documented in this encounter Discharge Instructions * Discharge Instructions* Jr Jose Angel Ramsay RN - 08/10/2020 1:31 PM EDT Images from the original note were not included. [facility] Vascular and Interventional Radiology Discharge Instructions for your Chest Port Removal Activity: ??? Relax for the next 24 hours Diet: ??? Drink plenty of fluids. ??? Resume your regular diet Bandage: There is a sterile dressing consisting of small gauze with a clear dressing (Tegaderm or IV 3000). This dressing should be left in place for 48 hours. If the clear dressing becomes loose youshould place tape over the edges to secure it in place. No tub baths, swimming or whirlpools for 1 week. No showering for 48 hours. Note: If you have steri-strips beneath your dressing, simply allow them to fall off. Do not peel them off. There may be Llano-mcdaniel (skin glue) also, allow this to flake off. Do not pick this off. Bathing: Do not take a shower until 48 hours after your port is removed; after this time you may shower with the dressing in place, then remove it and pat your skin dry. After 48 hours, we recommend that you cover the area with THE AQUA GUARD PROVIDED for 1 week while showering, facing away from the shower stream. You may use a bandaid to cover the site after the 48 hours are up if there is any drainage. No tub baths, whirlpools or swimming for one week following port removal. Pain: Apply ice bag to site (s) at 30 minute intervals (30 minutes on and 30 minutes off) for 24 hours?? . May use as needed for pain and/or bruising after 24 hours. When to call your healthcare provider: ??? If you notice bleeding from the incision on your chest, you should lie flat and apply firm pressure over the site for 10-15 minutes, keeping the site covered and call your doctor. If you are still bleeding after 10-15 minutes, reapply pressure, and have someone drive you to the nearest Emergency Department, or call 911. ??? If you develop pain, redness, drainage or swelling at or around chest incision site. ??? If you develop a fever equal to or greater than 101 degrees Fahrenheit. When to call the Interventional Radiology Department: Please call with any questions or concerns. If it is during regular office hours, please call [phone]. If it is after regular office hours, or on weekends or holidays, please call [phone] and ask to speak to the General Technician parking control officer for Interventional Radiology. You have received medication during your procedure to help lessen anxiety and keep you comfortable.These medications affect judgement and reaction time. We recommend that you do not drive, operate equipment, sign any important documents, or smoke unattended for 24 hours following your procedure. Because of the sedation, be careful on stairs, as you may be unsteady on your feet. You may resume your regular diet as tolerated. IV site -- slight redness, or tenderness is normal, you can use a warm compress. If tenderness and redness increases or foul drainage occurs, please contact your M. D. Revised 02/11/19 documented in this encounter Medications at Time of Discharge Medication Sig Dispensed Refills Start Date End Date Ibuprofen 200 mg Capsule Take 600 mg by mouth every 6 hours as needed. amLODIPine-benazepril (LOTREL) 5-10 mg Capsule Take 1 capsule by mouth daily as needed. albuteroL 90 mcg/actuation HFA Aerosol Inhaler Inhale 2 puffs into the lungs every 4 hours as needed for Wheezing. Use with spacer documented as of this encounter Progress Notes * Jr Jose Angel Ramsay RN - 08/10/2020 1:14 PM EDT [facility] DATABASE Name: TINY PICKERING Date of : 1980 AGE: 39 y.o. Address: [address] [place] [address] (home) Mobile: Telephone Information: Referring Provider: Dominique Echavarria REASON FOR VISIT: Order Questions Answers Where will study be performed? [facility] Radiology [120] Reason for exam and clinical history: Patient completed chemoradiation for tonsil cancer, [facility] Is the patient on anticoagulant / anitplatelet therapy ? No No Known Allergies Pertinent PMH: Patient Active Problem List Diagnosis Code ??? 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 Raynaud's syndrome I73.00 ??? Gastrostomy tube in place Z93.1 ??? Dysphagia, oropharyngeal phase R13.12 ??? Aspiration pneumonia of right lower lobe J69.0 ??? Dehydration E86.0 ??? Choking due to phlegm in larynx T17.310A ??? Drug-induced nausea and vomiting R11.2, T50.905A Date/Procedure Meds Given/Comments 08/10/20 mediport removal Local only Laboratory Results: Lab Results Component Value Date CREATININE 1.07 07/20/2020 Lab Results Component Value Date K 4.1 07/20/2020 Lab Results Component Value Date PLATELET 206 07/20/2020 documented in this encounter H&P Notes * Michi Hernandez PA - 08/09/2020 10:49 AM EDT Images from the original note were not included. Interventional Radiology Focused Pre-procedure H&P: PCP: Tiny Xiong APRN Referring Provider: Dominique Echavarria Planned procedure: Port explant Procedure indication: Tonsil cancer, discontinue jail durable venous access for chemotherapy IR workflow: Procedure request received through Interventional Radiology eDH order queue. Order Questions Answers Where will study be performed? [facility] Radiology [120] Reason for exam and clinical history: Patient completed chemoradiation for tonsil cancer, no longerneeds mediport Is the patient on anticoagulant / anitplatelet therapy ? No History of present illness: Per chart review, Tiny Pickering is a 39 y.o. male who presents to Interventional Radiology to undergo port explant in setting of tonsil cancer. Placed Jan 2020. Chemoradiation complete. Recent PET without evidence of residual active malignancy. Medical history notable for asthma, Raynaud's. Remainder of patient's medical and surgical history,allergies, medications, and social/family history obtained below as previously outlined in patient's medical record. IR history: as above Imaging: Assessment: 39 y.o. male with tonsil cancer on completion of therapy presenting to Interventional Radiology for port explant. Plan Planned procedure: Port explant Labs to be performed day of procedure: No labs Sedation: No Sedation Additional medications for procedure: Lidocaine Consent: Pending Case Urgency:: G- Other (non E or F elective cases) Labs: Lab Results Component Value Date HGB 13.2 (L) 07/20/2020 HCT 37.6 (L) 07/20/2020 WBC 3.3 (L) 07/20/2020 PLATELET 206 07/20/2020 BUN 17 07/20/2020 CREATININE 1.07 07/20/2020 ALBUMIN 4.6 07/20/2020 BILITOT 0.7 07/20/2020 AST 24 07/20/2020 ALT 24 07/20/2020 ALKPHOS 75 07/20/2020 Allergies: Patient has no known allergies. Medications: Current Outpatient Medications on File Prior to Encounter Medication Sig Dispense Refill ??? Ibuprofen 200 mg Capsule Take 600 mg by mouth every 6 hours as needed. ??? amLODIPine-benazepril (LOTREL) 5-10 mg Capsule Take 1 capsule by mouth daily as needed. ??? albuteroL 90 mcg/actuation HFA Aerosol Inhaler Inhale 2 puffs into the lungs every 4 hours as needed for Wheezing. Use with spacer No current facility-administered medications on file prior to encounter. Past medical/surgical history: Patient Active Problem List Diagnosis Code ??? 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 Raynaud's syndrome I73.00 ??? Gastrostomy tube in place Z93.1 ??? Dysphagia, oropharyngeal phase R13.12 ??? Aspiration pneumonia of right lower lobe J69.0 ??? Dehydration E86.0 ??? Choking due to phlegm in larynx T17.310A ??? Drug-induced nausea and vomiting R11.2, T50.905A Past Medical History: Diagnosis Date ??? Asthma ??? Raynaud's disease ??? Tonsil cancer Past Surgical History: Procedure Laterality Date ??? IR G-TUBE PLACEMENT 02/11/2020 IR G-Tube Placement 02/11/2020 Jose Angel Choi MD [facility] INTERVENTIONL RAD ??? IR MEDIPORT PLACEMENT/EXCHANGE 02/11/2020 IR Mediport Placement 02/11/2020 Jose Angel Choi MD [facility] INTERVENTIONL RAD ??? PRO LARYNGOSCOPY, DIRCT, OP SCOPE, BIOPSY Bilateral 01/05/2020 LARYNGOSCOPY, MICROSCOPE, WITH BIOPSY (WRVU 3.55) performed by Yrn Banuelos MD at [facility] MAIN OR ??? PRO REMOVAL OF TONSILS, 12+ Y/O Left 01/28/2020 TONSILLECTOMY AGE 12 AND OVER (WRVU 3.45) performed by Yrn Banuelos MD at [facility] MAIN OR Social history and habits: Social History Tobacco Use ??? Smoking status: Never Smoker ??? Smokeless tobacco: Never Used Substance Use Topics ??? Alcohol use: Yes Alcohol/week: 1.0 standard drinks Types: 1 Cans of beer per week ??? Drug use: Never Significant family history: No family history on file. Pertinent ROS: as per HPI Physical exam: Pending (to be performed in interventional radiology the day of procedure) ASA: Pending (to be assessed in interventional radiology the day of procedure) Mallampati class: Pending (to be assessed in interventional radiology the day of procedure) 08/09/2020 DANIELA Lr documented in this encounter Plan of Treatment Upcoming Encounters Date Type Department Care Team (Late st Contact Info) Description 05/31/2024 11:30 AM EST Office Visit Hematology/Oncolog y at [address] [phone] Tej Tipton MD [address] [facility] HEMATOLOGY [place] [address] [facility] [place] [address] 06/01/2024 10:30 AM EST Scheduled View [place] [address] 06/01/2024 11:00 AM EST Office [place] [phone] [facility] [place] [address] 06/04/2024 8:30 AM EST Hospital Encounter [place] [address] [facility] [place] [address] 06/04/2024 8:30 AM EST - 06/04/2024 1:05 PM EST Surgery [place] [phone] [facility] [place] [address] @THORACOSCOPY, SURG; W PLEURODESIS (WRVU 10.83) Scheduled [...] Procedure Name Priority Date/Time Associated Diagnosis Comments IR MEDIPORT REMOVAL Routine 08/10/2020 1 :53 PM EDT Tonsil cancer documented in this encounter Results * IR Mediport Removal [...] the IR Nurse. ?? Dominique Echavarria APRN G IR ORDERABLES documented in this encounter Visit Diagnoses Diagnosis Tonsil cancer Malignant neoplasm of tonsil documented in this encounter Care Teams Building Code Inspector Relationship Specialty Start Date End Date Tiny Walters APRN [address] [place] [phone] PCP - General Family Medicine 12/01/19 04/07/24 documented as of this encounter
--- OUTSIDE RECORDS SUMMARY | 2024-05-31 01:23 | XMS_ITS | Encounter Summary ---
Author Organization Formerly [facility] [place] [address] Care Team Providers Care Web Press Operator Assistant Name Role Phone Tiny Walters APRN Primary Care Provider +1- [phone] Encounter Details Date Type Department Care Team (Late st Contact Info) Description 11/20/2020 12:00 PM EDT Clinical Support Hematology/Oncology at [address] [phone] [facility] [address] HEMATOLOGY [place] [address] Tonsil cancer Social History Tobacco Use Types [...] as of this encounter Progress Notes * Azra Billy RD - 11/20/2020 12:00 PM EDT [facility] Nutrition Assessment Progress Note Zen Pickering Diagnosis: Stage IV SCC tonsil Assessment: Nutrition Screen 11/20/2020 Reason for assessment Symptom management Total MST Score 0 Functional Status 11/20/2020 Dysphagia Grades Grade 2: symptomatic and altered eating/ swallowing Xerostomia Present Odynophagia Present Dysgeusia Present Patient reports dysphagia, odynophagia, dry mouth and taste changes have persisted but improved following chemo/RT Food History, Access and Intake 11/20/2020 Patient Reported Diet Dysphagia (mechanical soft) Use of oral nutritional supplements Boost Usual Intake: 2 eggs, sandwich, salad with cheese and/or pasta. Patient drinks 2 Boost/day plus water, milk and some tea. He sips on drinks throughout day to help with xerostomia. Some dressings and condiments are painful to swallow. Chicken is too try to eat. He is able to eat hamburger cooked with butter. Patient reports his portions are smaller compared to what they used to be. Patient's feeding tube was removed on 10/02. Intake History 11/20/2020 Use of oral nutritional supplements Boost Wt Readings from Last 3 Encounters: 11/20/20 77.6 kg (171 lb) 10/19/20 74.4 kg (164 lb) 07/20/20 73.1 kg (161 lb 3.2 oz) BMI 26.77 Weight is up 7 pounds in the past month. 180# on 02/16/20. Patient reports this was his UBW prior to treatment. Medications:amlodipine prn, ibuprofen prn S/p chemo and RT (ending 04/18/20). Nutrition Diagnosis 11/20/2020 Problems Swallowing difficulty Etiology (related to) Daily H/N radiation therapy Signs and Symptoms Odynophagia;Dysphagia Estimated needs based on 77.6 [id number] kcals (25-30 kcal/kg) 78 grams protein (1g/kg) ~2-2.4 L/day fluid Intervention: * Discussed adding sweet, salty, or sour tasting things to foods to improve taste, as tolerated. Encouraged softer foods (BREWING DIRECTOR recommended lavel 10/02 solids * Provided resource for plant based recipes, gave sample recipes for homemade salad dressings. Follow Up: When returning to clinic. Note: Please see Hematology/Oncology malnutrition flowsheet for complete RD assessment/documentation Will f/u with patient when he returns to the clinic. documented in this encounter Plan of Treatment Upcoming Encounters Date Type Department Care Team (Late st Contact Info) Description 05/31/2024 11:30 AM EST Office Visit Hematology/Oncolog y at [address] [address] Tej Tipton MD [address] [facility] HEMATOLOGY [place] [address] Stacy Valle APRN [facility] [place] [address] 06/01/2024 10:30 AM EST Scheduled View Only Radiation Oncology at [place] [phone] 06/01/2024 11:00 AM EST Office Visit [place] [phone] Luis E Chin MD [facility] DR [place] [address] 06/04/2024 8:30 AM EST Hospital Encounter Main [place] [address] Rayshawn Suresh MD [facility] [place] [address] 06/04/2024 8:30 AM EST - 06/04/2024 1:05 PM EST Surgery [place] [address] Rayshawn Suresh MD [facility] DR [place] [address] @THORACOSCOPY, SURG; W PLEURODESIS (WRVU 10.83) Scheduled [...] tonsil documented in this encounter Care Teams Web Press Operator Assistant Relationship Specialty Start Date End Date Tiny Walters APRN [address] [place] [phone] PCP - General Family Medicine 12/01/19 04/07/24 documented as of this encounter
--- OUTSIDE RECORDS SUMMARY | 2024-05-31 01:23 | XMS_ITS | Encounter Summary ---
Author Organization [facility] Address [facility] [place] [address] Care Team Providers Care Party Host/Hostess Name Role Phone Tiny Walters APRN Primary Care Provider +1- [phone] Encounter Details Date Type Department Care Team (Late st Contact Info) Description 01/16/2021 Telephone Hematology [place] [phone] Gume Christy MD [address] [place] [address] [place] [address] Social History Tobacco Use Types Packs/Day Years [...] Telephone Encounter - Gume Christy MD - 01/16/2021 12:50 PM EDT [facility] HEAD AND NECK CANCER PROGRAM Medical Oncology Phone Note I called [place] to follow-up on yesterday's events. He called the [facility] yesterday to discuss new, sudden onset, severe left neck pain. This arose on Wednesday 01/10, without obvious preceding injury; he does recall some sneezing fits theday before. He and his for traveling and spent the night in a motel, but he does not recall obvious stresses or strains from the bed or pillow. He awoke with pain in the left neck, deep in the tissue and not mucosal. This radiated into the jaw and thereafter upwards to cause generalized headache. He denies trismus, obvious TMJ problems, dental pain, vesicular skin rash that might herald varicella-zoster, or ear problems. No one else in the family has been sick. The pain is constant, nonposi tional. He has felt otherwise well with no symptoms to suggest metastatic disease or infectious problems. He has tried ibuprofen and Tylenol, get some relief from ibuprofen but very little from Tylenol. After he called yesterday I recommended a visit to the [facility] emergency room. He was seen by the emergency room physician there. The physician and I discussed his case, and the only pertinent physical finding was slight swelling and irregularity of the right tonsil, consistent, by history, with prior chemotherapy and radiation. There is no positive finding to explain his left neckpain. We agreed on a CT scan of the neck which was done; I have reviewed this in great detail, and I can see no obvious explanation for his neck pain, specifically nothing that looks like an abscess,recurrent tumor, bone problem, or cervical spine problem. The official reading mentions some fullness of the right tonsillar bed but no real pathology. On my review this is consistent with his posttreatment PET/CT. Impression: I'm not at all sure what is causing his pain, but the emergency room exam and CT scan are reassuring that it is not directly cancer related. This certainly could be post radiation fibrosis with or otherwise be minor muscle strain leading to more severe symptoms. Certainly our head and neck patients have frequent muscle spasms in the sternocleidomastoid 4 years after radiation. [place] continues to have leg radiculopathy with neck flexion, consistent with Lhermitte's syndrome and perhaps his neck pain is some variant of that. Plan: Reassurance that we have no evidence about cancer recurrence. We agreed on symptomatic treatment with ibuprofen, I recommended a heating pad, and tone he knows to call if this does not resolve over the next few days. I have an appointment to follow-up with him on 02/05/2021. Gume Christy MD, FACP Hematology/Oncology Section, [facility] nutrition director, [facility] [employer] [facility] [phone] documented in this encounter Plan of Treatment Upcoming Encounters Date Type Department Care Team (Late st Contact Info) Description 05/31/2024 11:30 AM EST Office Visit Hematology/Oncolog y at [address] [phone] Tej Tipton MD [address] [facility] [address] HEMATOLOGY & [place] [address] Stacy Valle APRN [facility] [place] [address] 06/01/2024 10:30 AM EST Scheduled View Only [place] [phone] 06/01/2024 11:00 AM EST Office Visit [place] [phone] Luis E Chin MD [facility] [place] [address] 06/04/2024 8:30 AM EST Hospital Encounter Main [place] [phone] Rayshawn Suresh MD [facility] [place] [address] 06/04/2024 8:30 AM EST - 06/04/2024 1:05 PM EST Surgery [place] [phone] Rayshawn Suresh MD [facility] [place] [address] @THORACOSCOPY, SURG; W PLEURODESIS (WRVU 10.) Scheduled [...] on filedocumented in this encounter Care Teams Party Host/Hostess Relationship Specialty Start Date End Date Tiny Walters, BATSHEVA [address] [place] [phone] PCP - General Family Medicine 12/01/19 04/07/24 documented as of this encounter
--- OUTSIDE RECORDS SUMMARY | 2024-05-31 01:23 | XMS_ITS | Encounter Summary ---
Author Organization Formerly [facility] Address [facility] [place] [address] Care Team Providers Care Metal Bonder Name Role Phone Tiny Walters APRN Primary Care Provider +1- [phone] Reason for Visit * Diagnostic Test (Routine) - Closed Specialty Diagnoses / Procedures Referred By Fritz lanier Referred To Contact Radiology Diagnoses Tonsil cancer Procedures NM PET CT Standard Plus Head and Neck Yrn Banuelos MD [facility] [place] [address] [place] [address] Referral ID Status Reason Start Date Expiration Date V isits Requested Visits Authorized [id number] Closed Specialty Service Requested 10/19/2020 11/18/2020 1 1 Encounter Details Date Type Department Care Team (Latest Contact Info) Description 10/19/2020 9:32 AM EDT - 10/19/2020 11:59 PM EDT Hospital Encounter [place] [address] Yrn Banuelos MD [facility] [address] [place] [address] Discharge Disposition: Home Social History [...] EST Office Visit Hematology/Oncolog y at [address] [phone] Tej Tipton MD [facility] [address] HEMATOLOGY & [place] [address] Stacy Valle APRN [facility] [place] [address] 06/01/2024 10:30 AM EST Scheduled View [place] [address] 06/01/2024 11:00 AM EST Office [place] [address] Luis E Chin MD [facility] DR [place] [address] 06/04/2024 8:30 AM EST Hospital Encounter [place] [address] Rayshawn Suresh MD [facility] [place] [address] 06/04/2024 8:30 AM EST - 06/04/2024 1:05 PM EST Surgery Main Operating [place] [address] Rayshawn Suresh MD [facility] [place] [address] @THORACOSCOPY, SURG; W PLEURODESIS (WRVU 10.83) Scheduled [...] PET CT STANDARD PLUS HEAD AND NECK Routine 10/19/2020 11:41 AM EDT Tonsil cancer POCT GLUCOSE Routine 10/19/2020 9:45 AM EDT documented in this encounter Results * POCT Glucose (10/19/2020 9:45 AM EDT) Glucose, POC 82 65 - 199 mg/dL [facility] Comment: Supplemental ranges: <140 mg/dL before meals <180 mg/dL all other times of the day Blood 10/19/2020 9:45 AM EDT 10/19/2020 9:45 AM EDT Yrn Banuelos MD POINT OF CARE TEST ORDERABLES [facility] [place] [address] documented in this encounter Visit Diagnoses Not on filedocumented in this encounter Care Teams Metal Bonder Relationship Specialty Start Date End Date Tiny Walters APRN [address] [place] [phone] PCP - General Family Medicine 12/01/19 04/07/24 documented as of this encounter
--- OUTSIDE RECORDS SUMMARY | 2024-05-31 01:23 | XMS_ITS | Encounter Summary ---
Author Organization [facility] Address [facility] [place] [address] Care Team Providers Care Assistant Name Role Phone Tiny Walters APRN Primary Care Provider +1- [phone] Encounter Details Date Type Department Care Team (Late st Contact Info) Description 09/20/2020 Notes Only Hematology/Oncology at [address] [phone] Carrie Jacob, CHIEF DEPUTY CORONER Social History Tobacco Use Types Packs/Day Years Used Date Smoking Tobacco: Never Smokeless Tobacco: Never Alcohol Use Standard Drinks/Week Comments Yes 1 (1 standard drink = 0.6 oz pur e alcohol) Sex and Gender Information Value Date Recorded Sex Assigned at Not on file Gender Identity Not on file Sexual Orientation Not on file documented as of this encounter Progress Notes * Carrie Jacob, SALAS - 09/20/2020 11:18 AM EDTSummary: Notes Only Communication Note CHIEF DEPUTY CORONER called patient to check In re: trismus symptoms and management; patient missed appointment on this date although does state that he called to see if appt could be changed to telehealth/phone visit; patient states things are progressing slowly; he eats slower, denies overt s/sx aspiration with po intake; continues with xerostomia and oral hypersensitivity which is very inconsistent; he states eating is more tolerable but still somewhat difficult at times given pain/frustration; continues to utilize ACT gum to maintain oral comfort with saliva production. Has visited dentist who recommendedprescription toothpaste which has helped. Continues to report REYNA gains in range of 35-40mm and denies increase in pain related to trismus exercise(s). Plan: Discussed continuation of current HEP to maintain current progress; will plan follow up visit for 10/25/20. Referral: RD to discuss alternatives to IDDSI Level 7 solid foods for snacks given report of being more hangry and frustration with available options for po intake given ongoing oral pain/hypersensitivity. Carrie Jacob MA CCC-CHIEF DEPUTY CORONER Speech-Language Pathologist documented in this encounter Plan of Treatment Upcoming Encounters Date Type Department Care Team (Late st Contact Info) Description 05/31/2024 11:30 AM EST Office Visit Hematology/Oncolog y at [address] [phone] Tej Tipton MD [address] [facility] HEMATOLOGY & [place] [address] Stacy Valle APRN [facility] [place] [address] 06/01/2024 10:30 AM EST Scheduled View [place] [phone] 06/01/2024 11:00 AM EST Office [place] [phone] Luis E Chin MD [facility] [place] [address] 06/04/2024 8:30 AM EST Hospital Encounter [place] [phone] Rayshawn Suresh MD [facility] [place] [address] 06/04/2024 8:30 AM EST - 06/04/2024 1:05 PM EST Surgery [place] [address] Rayshawn Suresh MD [facility] [place] [address] @THORACOSCOPY, SURG; W PLEURODESIS (WRVU 10.83) Scheduled [...] on filedocumented in this encounter Care Teams Assistant Relationship Specialty Start Date End Date Tiny Walters APRN [address] [place] [phone] PCP - General Family Medicine 12/01/19 04/07/24 documented as of this encounter
--- OUTSIDE RECORDS SUMMARY | 2024-05-31 01:23 | XMS_ITS | Encounter Summary ---
Author Organization [facility] Address [facility] [place] [address] Care Team Providers Care Skip Loader Name Role Phone Romeo Tiny Lindsay APRN Primary Care Provider +1- [phone] Encounter Details Date Type Department Care Team (Late st Contact Info) Description 10/19/2020 2:00 PM EDT Office Visit [place] [address] Ynr Banuelos MD [facility] DR [place] [address] Tonsil cancer Social History Tobacco Use Types [...] - Inhaled Oxygen Concentration - - Weight 74.4 kg (164 lb) 10/19/2020 1:40 PM EDT Height 170.2 cm (5' 7) 10/19/2020 1:40 PM EDT Body Mass Index 25.69 10/19/2020 1:40 PM EDT documented in this encounter Progress Notes * Yrn Banuelos MD - 10/19/2020 2:00 PM EDT Subjective: Patient ID: Zen Pickering is a 40 y.o. male. HPI Tonsil cancer ? cT4 [...] ?? The patient is seen with his in follow up of his last visit in June 2020 where on his post treatment PET CT, was noted to have few areas of uptake along tongue . He has had a slow but steady overall improvement in his post therapy symptoms. He had developed significant degree of fatigue and tiredness as well as dysphagia and odynophagia with weight loss which she is slowly [...] G-Tube Placement 02/11/2020 Jose Angel Choi MD [facility] INTERVENTIONL RAD ??? IR MEDIPORT PLACEMENT/EXCHANGE 02/11/2020 IR Mediport Placement 02/11/2020 Jose Angel Choi MD [facility] INTERVENTIONL RAD ??? IR MEDIPORT REMOVAL 08/10/2020 IR Mediport Removal 08/10/2020 Marquis Crawford MD [facility] INTERVENTIONL RAD ??? PRO LARYNGOSCOPY, DIRCT, OP SCOPE, BIOPSY Bilateral 01/05/2020 LARYNGOSCOPY, MICROSCOPE, WITH BIOPSY (WRVU 3.55) performed by Yrn Banuelos MD at [facility] MAIN OR ??? PRO REMOVAL OF TONSILS, 12+ Y/O Left 01/28/2020 TONSILLECTOMY AGE 12 AND OVER (WRVU 3.45) performed by Yrn Banuelos MD at [facility] MAIN OR Patient Active Problem List Diagnosis Code ??? 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 Raynaud's syndrome I73.00 ??? Gastrostomy tube in place Z93.1 ??? Dysphagia, oropharyngeal phase R13.12 ??? Aspiration pneumonia of right lower lobe J69.0 ??? Dehydration E86.0 ??? Choking due to phlegm in larynx T17.310A ??? Drug-induced nausea and vomiting R11.2, T50.905A Current Outpatient Medications: ??? amLODIPine-benazepril (LOTREL) 5-10 [...] No current facility-administered medications for this visit. No Known Allergies Review of Systems: A [...] Week: ??? Minutes of Exercise per Session: Review of Systems Objective: Physical Exam Vitals [...] is reviewed with him and his : Previously seen mild uptake along the right lateral margin of the tongue has resolved. Previously seen right level Ib node has metabolically resolved. Increased uptake throughout the thyroid gland with unchanged appearance of the non-FDG avid low-density nodularity or cyst in the left thyroid lobe. No distant metastasis Assessment and Plan: ASSESSMENT/PLAN: Based on today's findings patient appears to have responded very nicely to his course of chemo radiation therapy for his stage IV squamous cell carcinoma. Abnormal findings on the PET/CT done in June have resolved.. From a functional standpoint he is recovering to a good pace. I am encouraged that he is recovering his taste and does not have any apparent physical limitations in his neck. He needs to continue with close follow-up. We will see him as part of our grid documented in this encounter Plan of Treatment Upcoming Encounters Date Type Department Care Team (Late st Contact Info) Description 05/31/2024 11:30 AM EST Office Visit Hematology/Oncolog y at [address] [phone] Tej Tipton MD [address] [facility] HEMATOLOGY & [place] [address] Stacy Valle APRN [facility] DR MEDICAL [place] [address] 06/01/2024 10:30 AM EST Scheduled View Only Radiation Oncology at [place] [phone] 06/01/2024 11:00 AM EST Office Visit [place] [phone] Luis E Chin MD [facility] DR RADIATION [place] [address] 06/04/2024 8:30 AM EST Hospital Encounter [place] [address] Rayshawn Suresh MD [facility] DR THORACIC [place] [address] 06/04/2024 8:30 AM EST - 06/04/2024 1:05 PM EST Surgery [place] [address] Rayshawn Suresh MD [facility] DR TH[place]AC[place] [address] @THORACOSCOPY, SURG; W PLEURODESIS (WRVU 10.83) Scheduled [...] tonsil documented in this encounter Care Teams Skip Loader Relationship Specialty Start Date End Date Tiny Walters APRN [address] [place] [phone] PCP - General Family Medicine 12/01/19 04/07/24 documented as of this encounter
--- OUTSIDE RECORDS SUMMARY | 2024-05-31 01:23 | XMS_ITS | Encounter Summary ---
Author Organization [facility] Address [facility] [place] [address] Care Team Providers Care Wire Tinner Name Role Phone Tiny Walters APRN Primary Care Provider +1- [phone] Encounter Details Date Type Department Care Team (Late st Contact Info) Description 06/26/2020 Unscheduled Encounter Hematology/Oncology at [address] [phone] Tonsil cancer Social History Tobacco Use Types [...] as of this encounter Progress Notes * Tonya Machado RD - 06/26/2020 2:49 PM EST [facility] Dietitian Follow Up Seen By: Tonya Machado RD LD Referred by: HN team Reason for visit: transition to oral diet Patient and diagnosis: Zen Pickering is a 39-year-old man with 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 Patient is s/p concurrent chemo/RT. Final RT on 04/18. HPI: Patient Active Problem List Diagnosis Code ??? 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 Raynaud's syndrome I73.00 ??? Gastrostomy tube in place Z93.1 ??? Dysphagia, oropharyngeal phase R13.12 ??? Aspiration pneumonia of right lower lobe J69.0 ??? Dehydration E86.0 ??? Choking due to phlegm in larynx T17.310A ??? Drug-induced nausea and vomiting R11.2, T50.905A Meds: reviewed Labs: NNL Estimated body mass index is 25.9 kg/m?? as calculated from the following: Height as of an earlier encounter on 06/26/20: 170.5 cm (5' 7.13). Weight as of an earlier encounter on 06/26/20: 75.3 kg (166 lb). Wt Readings from Last 3 Encounters: 06/26/20 75.3 kg (166 lb) 06/14/20 73.9 kg (163 lb) 05/29/20 74.4 kg (164 lb) Previous weights: 03/16/20: 170 lbs 02/16/20: 180 lbs 02/11/20: 179 lbs Reports stable weight on home scale. Wt Hx: UBW: % UBW: IBW: +/- 10% % IBW: ___ Edema ___ Ascites ___Muscle wasting Calories: 4247-8568 (30-35 kcal/kg) Protein: 120 grams (1.5 g/kg) Fluid: 2.5 L Nutrition Assessment: Enteral Nutrition: G-tube placed 02/10 by IR - 16 [place] balloon retained g-tube Patient last used feeding tube on 06/22 Food Intake: oral intake is improving and patient is trying more foods/textures. Still becomes fullrather quickly but improving. Meal examples include pastas, eggs, egg salad sandwich, shepards pie,rice crispy cereal. Tried some harder foods, such as chips, which went OK. Less sensitive to acidicfoods. Drinking Boost as well. Fluid intake: keeps water with him and drinks throughout the day, mouth dry Teas, vitamins, or other nutritional supplements: n/a Food allergies or avoidances: denies Appetite: fair, improving - smells food and has desire to eat Nausea: n/a Vomiting: n/a Chewing: denies difficulty, taking smaller bites at a time Dentition: no issues Swallowing: improving, see BOND UNDERWRITER notes Taste Changes: +bland, dry mouth, but starting to , notices more taste on one side of mouth Bowels: did not discuss Food availability/purchasing, meal planning and preparation: Social Support: ; 3 children at home Physical Activity: plans to ease back into Anticipated adherence/understanding: good Nutrition Diagnosis: Inadequate oral intake related to treatment for HN cancer as evidenced by g-tube placement - improving as patient is working to transition back to oral diet. Nutrition Intervention: ? Continue small, frequent meals with extra supplementation with boost and shakes ? Taste: discussed flavor additions ? Modify diet consistency: as tolerated/per BOND UNDERWRITER ? Enteral Nutrition: last used for feeding on 06/22; continue daily water flushes in the meantime Monitoring and Evaluation: Will call patient in 1 week to check in on weight/oral intake now that he is off his tube feedings. documented in this encounter Plan of Treatment Upcoming Encounters Date Type Department Care Team (Late st Contact Info) Description 05/31/2024 11:30 AM EST Office Visit Hematology/Oncolog y at [address] [phone] Tej Tipton MD [address] [facility] [address] HEMATOLOGY & [place] [address] Stacy Valle APRN [facility] [place] [place] [address] 06/01/2024 10:30 AM EST Scheduled View [place] [phone] 06/01/2024 11:00 AM EST Office [place] [phone] Luis E hCin MD [facility] [place] [address] 06/04/2024 8:30 AM EST Hospital Encounter [place] [phone] Rayshawn Suresh MD [facility] [place] [address] 06/04/2024 8:30 AM EST - 06/04/2024 1:05 PM EST Surgery [place] [address] Rayshawn Suresh MD [facility] [place] [address] @THORACOSCOPY, SURG; W PLEURODESIS (WRVU 10.83) Scheduled [...] documented in this encounter Care Teams Wire Tinner Relationship Specialty Start Date End Date Tiny Walters APRN [address] [place] [phone] PCP - General Family Medicine 12/01/19 04/07/24 documented as of this encounter
--- OUTSIDE RECORDS SUMMARY | 2024-05-31 01:23 | XMS_ITS | Encounter Summary ---
Author Organization [facility] Address [facility] [place] [address] Care Team Providers Care Quality Control Systems Manager Name Role Phone Tiny Walters APRN Primary Care Provider +1- [phone] Encounter Details Date Type Department Care Team (Latest Contact Info) Description 06/28/2020 11:30 AM EST Office Visit Hematology/Oncology at [address] [phone] Carrie Jacob, HEATER OPERATOR Tonsil cancer; Dysphagia, oropharyngeal phase Social History Tobacco Use Types Packs/Day Years Used Date Smoking Tobacco: Never Smokeless Tobacco: Never Alcohol Use Standard Drinks/Week Comments Yes 1 (1 standard drink = 0.6 oz pur e alcohol) Sex and Gender Information Value Date Recorded Sex Assigned at Not on file Gender Identity Not on file Sexual Orientation Not on file documented as of this encounter Progress Notes * Carrie Jacob SLP - 06/28/2020 11:30 AM ESTSummary: HEATER OPERATOR Progress Note Speech Language Pathology Telephone Encounter Patient Profile: Zen Pickering is a 39-year-old man with 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 Interval History: Reports less odynophagia, tolerating most solid foods with exception of hard/dry/crusty textures given frequent xerostomia; continues to tolerate tube feeds but is looking forward to having tube removed as he continues to eat by mouth. Does not use suction device any longer. HPI: Patient Active Problem List Diagnosis Code ??? 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 Raynaud's syndrome I73.00 ??? Gastrostomy tube in place Z93.1 RD visit 06/26/20: Meds: reviewed Labs: NNL Estimated body mass [...] lbs Reports stable weight on home scale. Subjective: Patient states he is able to tolerate most soft foods, majority of regular solid textures (IDDSI Levels 6/7); reports reduction in overall pain relative to previous week but continues with difficulties with thick phlegm/xerostomia; reports he does still have samples of SalivaMax which he will try using over next week. Objective: Pain: pain at 2-3/10 with use of modified ARK J Level 3 device, aware of instruction to stop use ofdevice if pain increases beyond 5/10 with use of Level 4 device at home Respiratory Status: Room air Current Diet: Level 0 Thin liquids, 6/7 soft/bite sized and regular solids Feeding / Oral Care Status: Pt is independent Using BSSR, is using biotene toothpaste Oral / Laryngeal Mechanism Clinical Assessment: denies additional changes relative to previous visit Trismus: REYNA: ?? Previous measurements 02/22/21 at 31.75 mm 05/10/20 at 25.4 mm 05/17/20 at 27 mm 05/24/20 at 30 mm 05/29/20 at 33 mm 06/14/20 30 mm 06/28/20 32 mm Trismus Severity - Mild (Jesus et al, 2006) Direct Trismus Treatment / Training: Initial REYNA: 32 mm Tissue Manipulation: Completed Stretch/Massage routine Passive exercise with modified Modified ARK-J Level 3 Device Hold 30 secs / 6 reps, 3 sets 4x/day Reported pain at 2-3 / 10 near R maxillary area, pain remains consistent with holds, repetitions Active jaw ROM exercise: able to tolerate for 4+ minutes; emphasis on over- exaggerated rotary chew movement(s) Ending REYNA: 34 mm Assessment: Pt is appropriate for continued direct trismus treatment/education for continued management in 2 weeks; Patient is currently using modified ARK-J level 3 and level 4 devices at home; overall he is tolerating ARK-J program well with significant benefit, however has noted some plateau effect over past 2-3 weeks; plan to contact [facility] financial sales representative to schedule consultation for financial assistance and/or insurance guidance during next in-person session. Discussed continued prophylactic swallowing exercise as tolerated with MDTP guide, as patient is tolerating MDTP Level 10 solid foods; encouraged patient to try SalivaMax trials again over next week to see if this helps with xerostomia. Patient demonstrated comprehension with all recommendations regarding his treatment plan to adhere to aspiration precautions and swallowing exercise. Patient continues to be appropriate candidate forSLP intervention given continued motivation and support from spouse. Pt will benefit from continued therapeutic interventions to achieve therapy goals. Diagnosis: right tonsil squamous cell carcinoma, oropharyngeal dysphagia Recommendations: Diet: Continue IDDSI Level 0 thin liquids as tolerated, IDDSI Level 6/7 solids as tolerated PO medications: whole with thin liquids and/or via g tube as directed by MD / Pharmacist Risk Management: Upright position during meals and for at least 30 mins following Sensory enhancement (flavor, texture, temperature): Reduced rate/volume of thin liquids, effortful saliva swallow between sips Secondary/dry swallow, thin liquid wash to address vallecular residue Speech Therapy Goals: Pt/carepartner will be independent with aspiration precautions, diet texture modifications, and safe/efficient swallowing strategies as outlined. Goal In Progress Pt will demonstrate effortful swallow technique with good execution to reduce muscle atrophy/as prophylactic swallowing exercise during chemo/RT. (Goal Met) Pt will demonstrate comprehension of trismus management techniques during course of cancer treatment and trismus HEP once treatment has been completed, as appropriate. Goal In Progress Pt will tolerate least restrictive diet textures/consistencies without overt evidence of dysphagia/aspiration. Goal In Progress Pt will maintain hydration/nutrition with optimal safety and efficiency. Goal In Progress Pt will increase MDADI global score to 4, maintain composite score above 80 given participation in HEP as outlined. Goal In Progress Further treatment goals to be determined pending results of Videofluoroscopic Swallow Study/Modified Barium Swallow Study [VFSS/MBSS] and/or Flexible/Fiberoptic Endoscopic Evaluation of Swallowing [FEES] as deemed necessary. (Goal Met 06/12/20, VFSS/MBSS at [facility]) Plan: Subsequent session scheduled 2 weeks from today to address continued intervention for direct treatment planning/implementation, review of additional strategies to aid in swallowing/speech abilities and support quality of life. Plan to reveiw MDTP guide as needed, re-administer MDADI. Please feel free to contact me with any questions or concerns regarding Mr. Pickering's care. Carrie Jacob MA CCC-HEATER OPERATOR Speech-Language Pathologist [email or web address] documented in this encounter Plan of Treatment Upcoming Encounters Date Type Department Care Team (Late st Contact Info) Description 05/31/2024 11:30 AM EST Office Visit Hematology/Oncolog y at [address] [phone] Tej Tipton MD [address] [facility] [address] HEMATOLOGY & [place] [address] Stacy Valle APRN [facility] [place] [address] 06/01/2024 10:30 AM EST Scheduled View Only [place] [phone] 06/01/2024 11:00 AM EST Office Visit [place] [phone] Luis E Chin MD [facility] [place] [address] 06/04/2024 8:30 AM EST Hospital Encounter [place] [phone] Rayshawn Suresh MD [facility] [place] [address] 06/04/2024 8:30 AM EST - 06/04/2024 1:05 PM EST Surgery Main Operating Room [facility] [place] [address] Rayshawn Suresh MD [facility] [place] [address] @THORACOSCOPY, SURG; W PLEURODESIS (WRVU 10.83) Scheduled [...] Diagnosis Tonsil cancer Malignant neoplasm of tonsil Dysphagia, oropharyngeal phase documented in this encounter Care Teams Quality Control Systems Manager Relationship Specialty Start Date End Date Tiny Walters APRN [address] [place] [phone] PCP - General Family Medicine 12/01/19 04/07/24 documented as of this encounter
--- OUTSIDE RECORDS SUMMARY | 2024-05-31 01:23 | XMS_ITS | Encounter Summary ---
Author Organization [facility] Address [facility] [place] [address] Care Team Providers Care Crimping Machine Operator For Metal Name Role Phone Tiny Walters APRN Primary Care Provider +1- [phone] Encounter Details Date Type Department Care Team (Late st Contact Info) Description 07/20/2020 2:00 PM EDT Office Visit Hematology [place] [address] Tonsil cancer Social History [...] Progress Notes * Tonya Machado RD - 07/20/2020 2:00 PM EDT [facility] Dietitian Follow Up Seen By: Tonya Machado [...] and vomiting R11.2, T50.905A Meds: reviewed Labs: reviewed Estimated body mass index is 24.43 kg/m?? as calculated from the following: Height as of an earlier encounter on 07/20/20: 173 cm (5' 8.11). Weight as of an earlier encounter on 07/20/20: 73.1 kg (161 lb 3.2 oz). Wt Readings from Last 3 Encounters: 07/20/20 73.1 kg (161 lb 3.2 oz) 06/26/20 75.3 kg (166 lb) 06/14/20 73.9 kg (163 lb) Previous weights: 03/16/20: 170 lbs 02/16/20: 180 lbs 02/11/20: 179 lbs Wt Hx: UBW: % UBW: IBW: +/- 10% % IBW: ___ Edema ___ Ascites ___Muscle wasting Calories: 4826-4077 (30-35 kcal/kg) Protein: 120 grams (1.5 g/kg) Fluid: 2.5 L Nutrition Assessment: Enteral Nutrition: G-tube placed 02/10 by IR - 16 [place] balloon retained g-tube Patient last used feeding tube on 06/22 Food Intake: oral intake is improving and patient is trying more foods/textures. Still becomes fullrather quickly but improving. Meal examples include pastas, eggs, egg salad sandwich, shepards pie,rice crispy cereal. Drinking Boost or makes his own shakes as needed for supplemental calories. Fluid intake: keeps water with him and drinks throughout the day, mouth dry Teas, vitamins, or other nutritional supplements: n/a Food allergies or avoidances: denies Appetite: fair, improving - smells food and has desire to eat Nausea: n/a Vomiting: n/a Chewing: denies difficulty, taking smaller bites at a time Dentition: no issues Swallowing: improving, see BRANCH LENDING MANAGER notes Taste Changes: +bland, dry mouth, cannot taste sweets Bowels: did not discuss Food availability/purchasing, meal planning and preparation: Social Support: ; 3 children at home Physical Activity: plans to ease back into Anticipated adherence/understanding: good Nutrition Diagnosis: Inadequate oral intake related to treatment for HN cancer as evidenced by g-tube placement - improving as patient has transitioned back to oral diet. Nutrition Intervention: ? Continue small, frequent meals with extra supplementation with boost and shakes ? Taste: discussed flavor additions ? Modify diet consistency: as tolerated/per BRANCH LENDING MANAGER ? Enteral Nutrition: not used for >2 weeks; g-tube removal today Monitoring and Evaluation: Will follow up in 3 months, or as needed. documented in this encounter Plan of Treatment Upcoming Encounters Date Type Department Care Team (Late st Contact Info) Description 05/31/2024 11:30 AM EST Office Visit Hematology/Oncolog y at [address] [phone] Tej Tipton MD [address] [facility] HEMATOLOGY & [place] [address] Stacy Valle APRN [facility] [place] [address] 06/01/2024 10:30 AM EST Scheduled View [place] [address] 06/01/2024 11:00 AM EST Office [place] [address] Luis E Chin MD [facility] DR [place] [address] 06/04/2024 8:30 AM EST Hospital Encounter [place] [address] Rayshawn Suresh MD [facility] DR [place] [address] 06/04/2024 8:30 AM EST - 06/04/2024 1:05 PM EST Surgery [place] [address] Rayshawn Suresh MD [facility] DR [place] [address] @THORACOSCOPY, SURG; W PLEURODESIS (WRVU 10.83) Scheduled [...] tonsil documented in this encounter Care Teams Crimping Machine Operator For Metal Relationship Specialty Start Date End Date Tiny Walters APRN [address] [place] [phone] PCP - General Family Medicine 12/01/19 04/07/24 documented as of this encounter
--- OUTSIDE RECORDS SUMMARY | 2024-05-31 01:23 | XMS_ITS | Encounter Summary ---
Author Organization [facility] [place] [address] Care Team Providers Care Heating And Refrigeration Inspector Name Role Phone Tiny Walters APRN Primary Care Provider +1- [phone] Encounter Details Date Type Department Care Team (Late Contact Info) Description 06/20/2020 Orders Only Hematology [place] [address] Gume Christy MD [address] [place] [address] [place] [address] Aspiration pneumonia of right lower lobe, unspecified aspiration pneumonia type; Sensation of chest tightness Social History Tobacco Use Types Packs/Day Years [...] AM EST Office Visit Hematology/Oncolog y at [address] [phone] Tej Tipton MD [address] [facility] HEMATOLOGY & [place] [address] Stacy Valle APRN [facility] [place] [address] 06/01/2024 10:30 AM EST Scheduled View Only Radiation Oncology at [place] [phone] 06/01/2024 11:00 AM EST Office Visit Radiation Oncology at [place] [phone] Luis E Chin MD [facility] [place] [address] 06/04/2024 8:30 AM EST Hospital Encounter Main Operating Room [place] [phone] Rayshawn Suresh MD [facility] [place] [address] 06/04/2024 8:30 AM EST - 06/04/2024 1:05 PM EST Surgery [place] [phone] Rayshawn Suresh MD [facility] [place] [address] @THORACOSCOPY, SURG; W PLEURODESIS (WRVU 10.83) Scheduled Procedures Name Priority Associated Diagnoses Date/Ti me @THORACOSCOPY, SURG; W PLEURODESIS (WRVU 10.83) metastatic pleural effusion 06/04/2024 8:30 AM EST BRONCHOSCOPY, DIAGNOSTIC (WRVU 2.53) metastatic pleural effusion 06/04/2024 8:30 AM EST DIONNA\ALMA.CATHETER,TUNNELED, WITH SQ PORT OR PUMP OVER 5YR (WRVU 5.79) metastatic pleural effusion 06/04/2024 8:30 AM EST documented as of this encounter Visit Diagnoses Diagnosis Aspiration pneumonia of right lower lobe, unspecified aspiration pneumonia type Sensation of chest tightness documented in this encounter Care Teams Heating And Refrigeration Inspector Relationship Specialty Start Date End Date Tiny Walters APRN [address] [place] [phone] PCP - General Family Medicine 12/01/19 04/07/24 documented as of this encounter
--- OUTSIDE RECORDS SUMMARY | 2024-05-31 01:23 | XMS_ITS | Encounter Summary ---
Author Organization [facility] Address [facility] [place] [address] Care Team Providers Care Personalized Living Manager Name Role Phone Tiny Walters APRN Primary Care Provider +1- [phone] Reason for Visit * Reason Onset Date Comments Other 06/20/2020 [facility] Y@9AM Skulpt @ 10:00 Encounter Details Date Type Department Care Team (Late Contact Info) Description 06/20/2020 Telephone Hematology/Oncology at [address] [phone] Caryn Child Other ( [facility]@9AM Skulpt @ 10:00) Social History Tobacco Use Types Packs/Day Years [...] AM EST Office Visit Hematology/Oncolog y at [address] [phone] Tej Tipton MD [address] [facility] [place] [address] Stacy aVlle APRN [facility] [place] [address] 06/01/2024 10:30 AM EST Scheduled View Only Radiation Oncology at [place] [phone] 06/01/2024 11:00 AM EST Office Visit Radiation Oncology at [place] [phone] Luis E Chin MD [facility] [place] [address] 06/04/2024 8:30 AM EST Hospital Encounter Main Operating Room [place] [phone] Rayshawn Suresh MD [facility] [place] [address] 06/04/2024 8:30 AM EST - 06/04/2024 1:05 PM EST Surgery [place] [phone] Rayshawn Suresh MD [facility] [place] [address] @THORACOSCOPY, SURG; W PLEURODESIS (WRVU 10.83) Scheduled [...] on filedocumented in this encounter Care Teams Personalized Living Manager Relationship Specialty Start Date End Date Tiny Walters APRN [address] [place] [phone] PCP - General Family Medicine 12/01/19 04/07/24 documented as of this encounter
--- OUTSIDE RECORDS SUMMARY | 2024-05-31 01:23 | XMS_ITS | Encounter Summary ---
Author Organization [facility] [place] [address] Care Team Providers Care Client Support Coordinator Name Role Phone Tiny Walters APRN Primary Care Provider +1- [phone] Reason for Referral * Diagnostic Test (Routine) - Closed Specialty Diagnoses / Procedures Referred By Contac t Referred To Contact Radiology Diagnoses Tonsil cancer Procedures NM PET CT Standard Plus Head and Neck NM PET CT Standard Plus Extremities and Head Dominique Echavarria APRN [facility] [address] [place] [address] [place] [address] Referral ID Status Reason Start Date Expiration Date V isits Requested Visits Authorized [id number] Closed Specialty Service Requested 07/20/2020 08/20/2020 1 1 Reason for Visit * Diagnostic Test (Routine) - Closed Specialty Diagnoses / Procedures Referred By Contac t Referred To Contact Radiology Diagnoses Tonsil cancer Procedures NM PET CT Standard Plus Head and Neck NM PET CT Standard Plus Extremities and Head Dominique Echavarria APRN [facility] [place] [address] [place] [address] Referral ID Status Reason Start Date Expiration Date V isits Requested Visits Authorized [id number] Closed Specialty Service Requested 07/20/2020 08/20/2020 1 1 Encounter Details Date Type Department Care Team (Late Contact Info) Description 07/20/2020 9:59 AM EDT Hospital Encounter [place] [address] Dominique Echavarria [facility] [address] [place] [address] Tonsil cancer Discharge Disposition: Home Social History [...] EST Office Visit Hematology/Oncolog y at [address] [address] Tej Tipton MD [address] [facility] [facility] [address] HEMATOLOGY [place] [address] Stacy Valle [facility] [place] [address] 06/01/2024 10:30 AM EST Scheduled View Only [place] [address] 06/01/2024 11:00 AM EST Office Visit [place] [address] Luis E Chin MD [facility] [place] [address] 06/04/2024 8:30 AM EST Hospital Encounter [place] [phone] Rayshawn Suresh MD [facility] [place] [address] 06/04/2024 8:30 AM EST - 06/04/2024 1:05 PM EST Surgery [place] [phone] Rayshawn Suresh MD [facility] [address] @THORACOSCOPY, SURG; W PLEURODESIS (WRVU 10.83) Scheduled [...] CT STANDARD PLUS HEAD AND NECK Routine 07/20/2020 1:18 PM EDT Tonsil cancer documented in this encounter Results * NM PET CT Standard Plus Head and Neck (07/20/2020 1:18 PM EDT) Anatomical Region Laterality Modality Positron Emissio n Tomography (PET) Impressions 07/20/2020 3:42 PM EDT 1. ??No specific evidence for residual active malignancy in the bilateral pharyngeal wall and right tongue muscle. 2. ??A small linear focus of activity along the lateral margin of the right tongue is favored to represent post-treatment inflammation. 3. ??Interval decreased size and near complete metabolic resolution of previously seen adenopathy in the bilateral 2 regions. 4. ??Additional stable multiple subcentimeter mild to moderately FDG avid lymph nodes in the bilateral levels 2 and 3 region are favored to represent chronic reactive nodes. 5. 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 6. ??No distant sites of metastasis. Thank you for letting us participate in the care of this patient. For questions regarding this report, please contact the number below. ? Narrative 07/20/2020 3:42 PM EDT EXAMINATION: NM PET CT STANDARD PLUS HEAD AND NECK CLINICAL HISTORY: completed chemoRT for tonsil cancer 04/2020 TECHNIQUE: Following IV injection of 93-lvmofe-7-deoxyglucose (FDG) a standard uptake of approximately 60 minutes, a noncontrast CT scan followed by a PET scan were acquired from the top of head to mid thighs. The noncontrast CT was used for anatomic localization and photon attenuation correction of the PET scan. Blood glucose level: 82 (mg/dL) FDG dose: 11.3 mCi COMPARISON: PET/CT 01/11/2020 FINDINGS: HEAD/NECK: Near complete metabolic resolution of the previously seen lesions involving the bilateral pharyngeal wall and posterolateral right tongue muscle, with only a small linear focus of activity along the lateral margin of the right tongue (axial image 73), which may represent a small focus of post radiation inflammation. Previously seen FDG avid lymph nodes in the bilateral level 2 regions are decreased in size and nearly resolved metabolically. Interval appearance of a subcentimeter FDG avid lymph node in the right level 1B region (axial image 80), favored to represent an interval reactive node. Additional stable appearing multiple subcentimeter mild to moderately FDG avid lymph nodes in the bilateral levels 2 and 3 regions, are favored to represent chronic reactive nodes. 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 Stable dominant non-FDG avid left lower pole nodule. CHEST: Normal activity in all soft tissue regions. Stable sub-5 mm pulmonary nodules in the right apex (axial image 104), posterior right lower lobe (axial image 140), and posterior left lower lobe (axial image 145). No other significant pulmonary nodules and no significant adenopathy. Central line present with the tip in the proximal right atrium. ABDOMEN/PELVIS: Normal activity in all soft tissue regions. No significant adenopathy. Gastrostomy tube present. SKELETON/EXTREMITIES: Decreased marrow activity in the cervical and upper thoracic spine is consistent with post radiation change. Normal activity in all other regions of the axial and visualized proximal appendicular skeleton. 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 The noncontrast CT wasused for anatomic localization and photon attenuation correction of the PETscan. Blood glucose level: 82 (mg/dL) FDG dose: 11.3 mCi COMPARISON: PET/CT 01/11/2020 FINDINGS: HEAD/NECK: Near complete metabolic resolution of the previously seen lesionsinvolving the bilateral pharyngeal wall and posterolateral right tongue muscle, withonly a small linear focus of activity along the lateral margin of the righttongue (axial image 73), which may represent a small focus of post radiation inflammation. Previously seen FDG avid lymph nodes in the bilateral level 2 regionsare decreased in size and nearly resolved metabolically. Interval appearanceof a subcentimeter FDG avid lymph node in the right level 1B region (axialimage 80), favored to represent an interval reactive node. Additional stable appearing multiple subcentimeter mild to moderately FDGavid lymph nodes in the bilateral levels 2 and 3 regions, are favored torepresent chronic reactive nodes. 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 Stable dominant non-FDG avidleft lower pole nodule. CHEST: Normal activity in all soft tissue regions. Stable sub-5 mm pulmonarynodules in the right apex (axial image 104), posterior right lower lobe (axial [id number]), and posterior left lower lobe (axial image 145). No other significantpulmonary nodules and no significant adenopathy. Central line present with the tipin the proximal right atrium. ABDOMEN/PELVIS: Normal activity in all soft tissue regions. No significant adenopathy. Gastrostomy tube present. SKELETON/EXTREMITIES: Decreased marrow activity in the cervical and upper thoracic spine isconsistent with post radiation change. Normal activity in all other regions of theaxial and visualized proximal appendicular skeleton. IMPRESSION 1. No specific evidence for residual active malignancy in the bilateral pharyngeal wall and right tongue muscle. 2. A small linear focus of activity along the lateral margin of theright tongue is favored to represent post-treatment inflammation. 3. Interval decreased size and near complete metabolic resolution ofpreviously seen adenopathy in the bilateral 2 regions. 4. Additional stable multiple subcentimeter mild to moderately FDG avidlymph nodes in the bilateral levels 2 and 3 region are favored to representchronic reactive nodes. 5. 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 6. No distant sites of metastasis. Thank you for letting us participate in the care of this patient. Forquestions regarding this report, please contact the number below. Dominique Echavarria APRN IMG PET ORDERABLE S documented in this encounter Visit Diagnoses Diagnosis Tonsil cancer Malignant neoplasm of tonsil documented in this encounter Administered Medications Inactive Administered Medications - up to 3 most recent administrations Medication Order MAR Action Action Date Dose Rate Site ALPRAZolam (Xanax) tablet 0.5 mg 0.5 mg, Oral, ONCE, 1 dose, On Ambreen 07/20/20 at 1045, Radiology Protocol Medication, Routine Given 07/20/2020 11:15 AM EDT 0.5 mg fludeoxyglucose (F-18) FDG injection 0-20 mCi 0-20 mCi, Intravenous, ONCE PRN, 1 dose, Starting on Ambreen 07/20/20 at 1202, Until Ambreen 07/20/20 at 1158, Per Protocol, Radiology Contrast, Routine Given 07/20/2020 11:58 AM EDT 11.3 mCi Implanted Port documented in this encounter Care Teams Client Support Coordinator Relationship Specialty Start Date End Date Tiny Walters APRN [address] [place] [phone] PCP - General Family Medicine 12/01/19 04/07/24 documented as of this encounter
--- OUTSIDE RECORDS SUMMARY | 2024-05-31 01:23 | XMS_ITS | Encounter Summary ---
Author Organization [facility] [place] [address] Care Team Providers Care Trouble Operator Name Role Phone Tiny Walters APRN Primary Care Provider +1- [phone] Encounter Details Date Type Department Care Team (Late Contact Info) Description 01/15/2021 1:10 PM EDT Ancillary Procedure Radiology Library at [facility] [place], [facility] [place] [address] Tiny Walters APRN [address] [place] [phone] Social History Tobacco Use Types Packs/Day Years [...] AM EST Office Visit Hematology/Oncolog y at [address] [address] Tej Tipton MD [address] [facility] HEMATOLOGY & [place] [address] Stacy Valle APRN [facility] [place] [address] 06/01/2024 10:30 AM EST Scheduled View [place] [address] 06/01/2024 11:00 AM EST Office [place] [phone] Luis E Chin MD [facility] [place] [address] 06/04/2024 8:30 AM EST Hospital Encounter [place] [phone] Rayshawn Suresh MD [facility] [place] [address] 06/04/2024 8:30 AM EST - 06/04/2024 1:05 PM EST Surgery [place] [address] Rayshawn Suresh MD [facility] [place] [address] @THORACOSCOPY, SURG; W PLEURODESIS (WRVU 10.83) Scheduled [...] Priority Date/Time Associated Diagnosis Comments FILM LIBRARY - STORAGE ONLY CT NECK Routine 01/15/2021 1:09 PM EDT documented in this encounter Results * Film Library- Storage Only CT Neck (01/15/2021 1:09 PM EDT) Narrative RAD - 01/15/2021 1:09 PM EDT This exam is auto-finalizing. It's purpose is for storage only. Tiny Walters APRN IMG FILM LIBRARY O RDERABLES [place], [place] documented in this encounter Visit Diagnoses Not on filedocumented in this encounter Care Teams Trouble Operator Relationship Specialty Start Date End Date Tiny Walters APRN [address] [place] [phone] PCP - General Family Medicine 12/01/19 04/07/24 documented as of this encounter
--- OUTSIDE RECORDS SUMMARY | 2024-05-31 01:23 | XMS_ITS | Encounter Summary ---
[place] [address] Care Team Providers Care Customer Assistance Representative Name Role Phone Tiny Walters APRN Primary Care Provider +1- [phone] Reason for Referral * Diagnostic Test (Routine) - Closed Specialty Diagnoses / Procedures Referred By Contac t Referred To Contact Radiology Diagnoses Tonsil cancer Procedures NM PET CT Standard Plus Head and Neck Yrn Banuelos MD [facility] [place] [address] [place] [address] Referral ID Status Reason Start Date Expiration Date V isits Requested Visits Authorized [id number] Closed Specialty Service Requested 10/19/2020 11/18/2020 1 1 Reason for Visit * Diagnostic Test (Routine) - Closed Specialty Diagnoses / Procedures Referred By Contac t Referred To Contact Radiology Diagnoses Tonsil cancer Procedures NM PET CT Standard Plus Head and Neck Yrn Banuelos MD [facility] [place] [address] [place] [address] Referral ID Status Reason Start Date Expiration Date V isits Requested Visits Authorized [id number] Closed Specialty Service Requested 10/19/2020 11/18/2020 1 1 Encounter Details Date Type Department Care Team (Latest Contact Info) Description 10/19/2020 9:30 AM EDT - 10/19/2020 9:31 AM EDT Hospital Encounter [place] [address] Yrn Banuelos MD [facility] [place] [address] Tonsil cancer Discharge Disposition: Home Social History [...] AM EST Office Visit Hematology/Oncolog y at [address] [address] Tej Tipton MD [facility] DR HEMATOLOGY & [place] [address] Stacy Valle APRN [facility] [place] [address] 06/01/2024 10:30 AM EST Scheduled View [place] [address] 06/01/2024 11:00 AM EST Office [place] [address] Luis E Chin MD [facility] [place] [address] 06/04/2024 8:30 AM EST Hospital Encounter [place] [phone] Rayshawn Suresh MD [facility] [place] [address] 06/04/2024 8:30 AM EST - 06/04/2024 1:05 PM EST Surgery [place] [phone] Rayshawn Suresh MD [facility] [place] [address] @THORACOSCOPY, SURG; W PLEURODESIS (WRVU 10.83) Scheduled [...] Routine 10/19/2020 11:41 AM EDT Tonsil cancer documented in this encounter [...] who have questions please contact the health manager home healthcare that requested your imaging first. ? 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 ??On PET/CT done on 07.20.20, there is mild residual activity. ??Recommendation was to repeat PET/CT TECHNIQUE: Following IV injection of 32-xdmngt-4-deoxyglucose (FDG) a standard uptake of approximately 60 [...] to repeatPET/CT TECHNIQUE: Following IV injection of 02-ngbiml-2-deoxyglucose (FDG) astandard uptake of approximately 60 minutes, [...] patients who have questions please contactthe health manager home healthcare that requested your imaging first. Electronically signed by: Natalee Marquez MD, [facility] ([phone]), at 10/19/2020 1:15 PM Yrn Banuelos MD IMG PET ORDERABLES documented in this encounter Visit Diagnoses Diagnosis Tonsil cancer Malignant neoplasm of tonsil documented in this encounter Administered Medications Inactive Administered Medications - up to 3 most recent administrations Medication Order MAR Action Action Date Dose Rate Site ALPRAZolam (Xanax) tablet 0.5 mg 0.5 mg, Oral, ONCE, 1 dose, On Ambreen 10/19/20 at 0000, Routine Given 10/19/2020 9:40 AM EDT 0.5 mg fludeoxyglucose (F-18) FDG injection 0-20 mCi 0-20 mCi, Intravenous, ONCE PRN, 1 dose, Starting on Ambreen 10/19/20 at 1023, Until Ambreen 10/19/20 at 1009, Per Protocol, Radiology Contrast, Routine Given 10/19/2020 10:09 AM EDT 11 mCi Right Arm documented in this encounter Care Teams Customer Assistance Representative Relationship Specialty Start Date End Date Tiny Walters APRN [address] [place] [phone] PCP - General Family Medicine 12/01/19 04/07/24 documented as of this encounter
--- OUTSIDE RECORDS SUMMARY | 2024-05-31 01:23 | XMS_ITS | Encounter Summary ---
Author Organization [facility] Address [facility] [place] [address] Care Team Providers Care Event Promotions Coordinator Name Role Phone Tiny Walters APRN Primary Care Provider +1- [phone] Encounter Details Date Type Department Care Team (Late st Contact Info) Description 06/20/2020 11:00 AM EST Telephone Hematology/Oncology at [address] [address] Social History Tobacco Use Types Packs/Day Years [...] encounter Miscellaneous Notes * Telephone Encounter - Tonya Machado RD - 06/21/2020 12:40 PM EST [facility] Dietitian Follow Up - phone call Seen By: Tonya Machado RD LD Referred [...] Labs: NNL Estimated body mass index is 25.43 kg/m?? as calculated from the following: Height as of 05/29/20: 170.5 cm (5' 7.13). Weight as of 06/14/20: 73.9 kg (163 lb). Wt Readings from Last 3 Encounters: 06/14/20 73.9 kg (163 lb) 05/29/20 74.4 kg (164 lb) 05/24/20 73.8 kg (162 lb 12.8 oz) Previous weights: 03/16/20: 170 lbs 02/16/20: 180 lbs 02/11/20: 179 lbs Reports stable weight on home scale. Wt Hx: UBW: % UBW: IBW: +/- 10% % IBW: ___ Edema ___ Ascites ___Muscle wasting Calories: 4043-8332 (30-35 kcal/kg) Protein: 120 grams (1.5 g/kg) Fluid: 2.5 L Nutrition Assessment: Enteral Nutrition: G-tube placed 02/10 by IR - 16 Macedonian balloon retained g-tube Patient has decreased tube feedings to 2 cartons of Nutren 1.5 per day, providing 750 calories and 34 grams protein to supplement oral intake. Food Intake: oral intake is improving and patient is trying more foods/textures. Still becomes fullrather quickly but improving. Meal examples include pastas, eggs, egg salad sandwich, shepards pie,rice crispy cereal. Tried some harder foods, such as chips, which went OK. Less sensitive to acidicfoods. Drinking Boost as well. Fluid intake: keeps water with him and drinks throughout the day Teas, vitamins, or other nutritional supplements: n/a Food allergies or avoidances: denies Appetite: fair, improving - smells food and has desire to eat Nausea: n/a Vomiting: n/a Chewing: denies difficulty, taking smaller bites at a time Dentition: no issues Swallowing: improving, see RESIDENCY PROGRAM COORDINATOR notes Taste Changes: +bland, but starting to improve Bowels: no issues Food availability/purchasing, meal planning and preparation: Social Support: ; 3 children at home Physical Activity: Anticipated adherence/understanding: good Nutrition Diagnosis: Inadequate oral intake related to treatment for HN cancer as evidenced by g-tube placement - improving as patient is working to transition back to oral diet. Nutrition Intervention: ? Provided list of foods with estimated calorie/protein content and meal ideas ? Modify diet consistency: as tolerated/per RESIDENCY PROGRAM COORDINATOR ? Reviewed patient with SALAS Paul ? Enteral Nutrition: continue working on weaning tube feeds as oral intake improves, monitor weightto ensure adequate intake during transition Monitoring and Evaluation: Will check in when patient returns to clinic on 06/26. documented in this encounter Plan of Treatment Upcoming Encounters Date Type Department Care Team (Late st Contact Info) Description 05/31/2024 11:30 AM EST Office Visit Hematology/Oncolog y at [address] [phone] Tej Tipton MD [facility] DR HEMATOLOGY & [place] [address] Stacy Valle APRN [facility] DR [place]ICAL [place] [address] 06/01/2024 10:30 AM EST Scheduled View [place] [address] 06/01/2024 11:00 AM EST Office [place] [phone] Luis E Chin MD [facility] DR RADIATION [place] [address] 06/04/2024 8:30 AM EST Hospital Encounter [place] [phone] Rayshawn Suresh MD [facility] DR [place]ACIC [place] [address] 06/04/2024 8:30 AM EST - 06/04/2024 1:05 PM EST Surgery [place] [address] Rayshawn Suresh MD [facility] DR [place]ORACIC [place] [address] @THORACOSCOPY, SURG; W PLEURODESIS (WRVU 10.83) Scheduled [...] on filedocumented in this encounter Care Teams Event Promotions Coordinator Relationship Specialty Start Date End Date Tiny Walters APRN [address] [place] [phone] PCP - General Family Medicine 12/01/19 04/07/24 documented as of this encounter
--- OUTSIDE RECORDS SUMMARY | 2024-05-31 01:23 | XMS_ITS | Encounter Summary ---
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 Social History Tobacco Use Types Packs/Day Years [...] Sign Reading Time Taken Comments Blood Pressure 121/65 06/26/2020 10:11 AM EST Pulse 90 06/26/2020 10:11 AM EST Temperature 36.6 ??C (97.9 ??F) 06/26/2020 10:[address] Respiratory Rate 16 06/26/2020 10:11 AM EST Oxygen Saturation 100% 06/26/2020 10:11 AM EST Inhaled Oxygen Concentration - - Weight 75.3 kg (166 lb) 06/26/2020 10:11 AM EST Height 170.5 cm (5' 7.13) 06/26/2020 10:[address] Body Mass Index 25.9 06/26/2020 10:11 AM EST documented in this encounter Progress Notes * Gume Christy MD - 06/26/2020 10:15 AM EST Hematology/Oncology Clinic [facility] Patient Active Problem List Diagnosis ??? 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 ??? Drug-induced nausea and vomiting ??? Choking due to phlegm in larynx ??? Dehydration ??? Aspiration pneumonia of right lower lobe ??? Dysphagia, oropharyngeal phase ??? Gastrostomy tube in place Balloon-retained (5 mL inflation), 16 Fr, placed by [facility] 02/11/2020 ??? Raynaud's syndrome Urgently scheduled visit for new unexpected symptoms. For past 2 weeks or so he's noted discomfort across the upper chest, back, and shoulders. No obvious MSK strain history nor injury. Pain is mild, '3/10' but nagging. Notes dysesthesia to light touch;no skin rash. Discomfort with deep breath but no dyspnea or sharp focal pleural pain. No cough. No radiation down arms; no weakness or other sensory/motor symptoms. He notes that he stopped gabapentin as of 05/29/2020, when he was feeling ill with syndrome of nausea, fatigue, 'dizziness', but no URI symptoms nor fever. His had noted increased fatigue the prior week, but no focal symptoms. No known COVID exposure. Cancer-thomas: throat improving. Pharyngeal pain resolved. Xerostomia still, night > daytime. Gagging less. Taste still diminished but slowly improving. Increasing the variety of foods he's eating; working with SUBWAY CONDUCTOR on this as a form of pharyngeal/oral rehab. Can tolerate acidic foods/liquids. Has not used G-tube in 2-3 days; would like it out MARK. Energy improving but still sub-normal. Would like to return to work on reduced schedule. Exam: Looks well, speech clear Oral: slight trismus, ~2.5 cm interincisor. No visible tumor; R lateral oral tongue still denuded but no mucositis. Still deviates moderately to R. Neck: no adenopathy, excellent cosmesis, no edema Chest: clear, no signs of effusion, no rub Cor: RRR normal tones, no rub, no murmur, no gallop. Abd: no HSM or mass. G-tube clean, small rim of granulation tissue, no bleeding. Extrem: normal, no edema Neuro: CN normal. Upper, lower extrem motor power normal.Light touch sensation 'different' over upper chest and back from approx C3/4 level down to T5/6 level, but not involving arms/fingers. No increase in dysesthesia with neck flexion or extension. DTRs 2+ at knees. Skin: no rash on chest or torso Chest Xray: done today at [facility]. Per report, normal, no pleural, cardiac, or lung parenchymal findings. Cath tip in SVC/R atrial border. Impression: recovering well from chemoradiation. Discomfort across upper chest and back is a mystery: cutaneous dysesthesia sounds neurological; does not fit well with lung pathology (PNA, PE) nor with cardiac or pericardial process. Bilateral distribution and lack of skin findings argue against Zoster. Temporal association with what sounds like a mild URI does not really clarify things; we considered COVID-19 but he really had no suggestive symptoms, and antigen testing at this point would notlead to therapeutic options. Gabapentin withdrawal is typically characterized by confusion, agitation, diaphoresis, tremulousness. Time course from recent neck irradiation might suggest L'Hermitte's syndrome but lack of exacerbation with neck flexion and lack of radicular arm symptoms, typical for this syndrome, argue against it. Could this still be an atypical post-radiation myelitis? Skin sensitivity down to T5-6 dermatome seems too low for his neck RT field to explain. Plan: 1. Discussed the uncertainties above. As we see no signs of worrisome lung or heart pathology, we agreed to observe and monitor. 2. Continue swallowing rehab. Keep G-tube in for now; would like to wait for restaging and PET/CT visit on 07/20/2020. 3. Encouraged slow steady increase in activity and exercise. Exercise may cause slight weight loss,but I anticipate the re-gain of lost muscle mass would soon make up for this. 4. Letter to allow return to work on reduced schedule. Gume Christy MD, FACP tightening machine operator Hematology/Oncology Section [facility]/[address] [address] Voice recognition software used for this note; please excuse steel shot header operator errors. I personally reviewed past medical, surgical, family medical histories, reviewed current medications, vital signs, labs, and performed full review of systems. These are documented below the narrativefor clarity and succinctness. No outpatient medications have been marked as taking for the 06/26/20 encounter (Office Visit) with Gume Christy MD. Review of Systems: Review of systems is negative for other SUPERVISOR COOK HOUSE, bone, pulmonary, cardiac, GI, , extremity, neurologic, endocrine, skin, constitutional, emotional, or functional problems. Vitals Office Visit from 06/26/2020 in Hematology/Oncology at [facility] Weight 75.3 kg (166 lb) Height 170.5 cm (5' 7.13) BSA (Calculated - sq m) 1.89 sq meters BMI (Calculated) 25.9 Temp 36.6 ??C (97.9 ??F) Temp src Temporal Heart Rate 90 Heart Rate Source Right, NIBP Resp 16 BP 121/65 BP Location Right arm Patient Position Sitting SpO2 100 % Karnofsky Score 90 Body surface area is 1.89 meters squared. Wt Readings from Last 3 Encounters: 06/26/20 75.3 kg (166 lb) 06/14/20 73.9 kg (163 lb) 05/29/20 74.4 kg (164 lb) No results found for this or any previous visit (from the past 72 hour(s)). ++++++++++++++++++++++++++++++++++++++++++++++++++++ documented in this encounter Plan of Treatment Upcoming Encounters Date Type Department Care Team (Late st Contact Info) Description 05/31/2024 11:30 AM EST Office Visit Hematology/Oncolog y at [address] [phone] Tej Tipton MD [address] [facility] HEMATOLOGY & [place] [address] Stacy Valle APRN [facility] [place] [address] 06/01/2024 10:30 AM EST Scheduled View Only [place] [phone] 06/01/2024 11:00 AM EST Office Visit [place] [phone] Luis E Chin MD [facility] [place] [address] 06/04/2024 8:30 AM EST Hospital Encounter [place] [address] Rayshawn Suresh MD [facility] [place] [address] 06/04/2024 8:30 AM EST - 06/04/2024 1:05 PM EST Surgery [place] [phone] Rayshawn Suresh MD [facility] [place] [address] @THORACOSCOPY, SURG; W PLEURODESIS (WRVU 10.83) Scheduled [...] Diagnosis Tonsil cancer Malignant neoplasm of tonsil Gastrostomy tube in place documented in this encounter Care Teams Heel Slugger Relationship Specialty Start Date End Date Tiny Walters APRN [address] [place] [address] PCP - General Family Medicine 12/01/19 04/07/24 documented as of this encounter
--- OUTSIDE RECORDS SUMMARY | 2024-05-31 01:23 | XMS_ITS | Encounter Summary ---
Author Organization [facility] [place] [address] Care Team Providers Care Dietetic Tech Name Role Phone Tiny Walters APRN Primary Care Provider +1- [phone] Reason for Visit * Reason Onset Date Comments Other 01/15/2021 left sided neck pain Encounter Details Date Type Department Care Team (Late st Contact Info) Description 01/15/2021 Telephone Hematology/Oncology at [address] [phone] Taniya Barajas RN Other (left sided neck pain) Social History Tobacco Use Types Packs/Day Years [...] Telephone Encounter - Taniya Barajas RN - 01/15/2021 9:45 AM EDT Pt calls with left sided neck pain since last Friday01/10/21. He has no fever or chills. Runny nose from possible allergies a couple of weeks ago.. He has been using advil with some relief of pain. Tylenol does nothing for it. Pain woke him up at night. Reviewed with Dr. Christy and he would like pt to go to [facility] for evaluation and possible ct of neck. Pt agrees with plan. Report called into Estela ELISE at [facility]. documented in this encounter Plan of Treatment Upcoming Encounters Date Type Department Care Team (Late st Contact Info) Description 05/31/2024 11:30 AM EST Office Visit Hematology/Oncolog y at [address] [phone] Tej Tipton MD [address] [facility] HEMATOLOGY & [place] [address] Stacy Valle APRN [facility] [place] [address] 06/01/2024 10:30 AM EST Scheduled View [place] [phone] 06/01/2024 11:00 AM EST Office [place] [phone] Luis E Chin MD [facility] DR [place] [address] 06/04/2024 8:30 AM EST Hospital Encounter [place] [phone] Rayshawn Suresh MD [facility] DR [place] [address] 06/04/2024 8:30 AM EST - 06/04/2024 1:05 PM EST Surgery [place] [address] Rayshawn Suresh MD [facility] DR [place] [address] @THORACOSCOPY, SURG; W PLEURODESIS (WRVU 10.83) Scheduled [...] on filedocumented in this encounter Care Teams Dietetic Tech Relationship Specialty Start Date End Date Tiny Walters, PATIENT REGISTRATION CLERK [address] [place] [phone] PCP - General Family Medicine 12/01/19 04/07/24 documented as of this encounter
--- OUTSIDE RECORDS SUMMARY | 2024-05-31 01:23 | XMS_ITS | Encounter Summary ---
[place] [address] Care Team Providers Care Furniture Finisher Apprentice Name Role Phone Tiny Walters APRN Primary Care Provider +1- [phone] Encounter Details Date Type Department Care Team (Late Contact Info) Description 07/21/2020 Telephone [place] [phone] Jo Urena Social History Tobacco Use Types Packs/Day Years [...] encounter Miscellaneous Notes * Telephone Encounter - Jo Urena - 07/21/2020 12:08 PM EDT Called pt to schedule a PET CT for 3 mons out per BG. LVM for pt to call back. documented in this encounter Plan of Treatment Upcoming Encounters Date Type Department Care Team (Late Contact Info) Description 05/31/2024 11:30 AM EST Office Visit Hematology/Oncolog y at [address] [phone] Tej Tipton MD [address] [facility] HEMATOLOGY & [place] [address] Stacy Valle APRN [facility] [place] [address] 06/01/2024 10:30 AM EST Scheduled View Only Radiation Oncology at [place] [address] 06/01/2024 11:00 AM EST Office Visit Radiation Oncology at [place] [phone] Luis E Chin MD [facility] [place] [address] 06/04/2024 8:30 AM EST Hospital Encounter Main Operating Room [place] [phone] Rayshawn Suresh MD [facility] [place] [address] 06/04/2024 8:30 AM EST - 06/04/2024 1:05 PM EST Surgery Main Operating Room [place] [phone] Rayshawn Suresh MD [facility] [place] [address] @THORACOSCOPY, SURG; W PLEURODESIS (WRVU 10.83) Scheduled [...] on filedocumented in this encounter Care Teams Furniture Finisher Apprentice Relationship Specialty Start Date End Date Tiny Walters APRN [address] [place] [address] PCP - General Family Medicine 12/01/19 04/07/24 documented as of this encounter
--- OUTSIDE RECORDS SUMMARY | 2024-05-31 01:23 | XMS_ITS | Encounter Summary ---
Author Organization [facility] Address [facility] [place] [address] Care Team Providers Care Chip Applying Machine Tender Name Role Phone Tiny Walters APRN Primary Care Provider +1- [phone] Encounter Details Date Type Department Care Team (Late st Contact Info) Description 02/05/2021 1:00 PM EDT Office Visit Hematology/Oncology at [address] [phone] Gume Christy MD [address] [place] [address] [place] [address] Tonsil cancer Social History Tobacco Use Types [...] Sign Reading Time Taken Comments Blood Pressure 131/81 02/05/2021 1:02 PM EDT Pulse 59 02/05/2021 1:02 PM EDT Temperature 36.4 ??C (97.5 ??F) 02/05/2021 1:02 PM ED T Respiratory Rate 16 02/05/2021 1:02 PM EDT Oxygen Saturation 100% 02/05/2021 1:02 PM EDT Inhaled Oxygen Concentration - - Weight 78.9 kg (174 lb) 02/05/2021 1:02 PM EDT Height 170.2 cm (5' 7.01) 02/05/2021 1:02 PM ED T Body Mass Index 27.25 02/05/2021 1:02 PM EDT documented in this encounter Progress Notes * Gume Christy MD - 02/05/2021 1:00 PM EDT Hematology/Oncology Clinic [facility] Patient Active Problem List Diagnosis ??? 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 ??? Drug-induced nausea and vomiting ??? Choking due to phlegm in larynx ??? Dehydration ??? Aspiration pneumonia of right lower lobe ??? Dysphagia, oropharyngeal phase ??? Raynaud's syndrome Med Onc checkup. Now 9 months from completion of chemoRT. We all had a scare a few weeks ago when he developed rapid onset left neck pain. The only inciting factor we could identify was that he had spent a few nights away from home sleeping in a strange bed. He was seen in the emergency room and a CT was done, showing no obvious pathology. After several nights back in his own bed, the symptoms resolved. Otherwise he has been well. Energy level is good, and he is getting regular running exercise He is working again full-time. He does note ongoing dry mouth. He has tried several dry mouth lozenges without success. He knows to keep water close at hand at all times. His diet is normal. Spicy foods are still too strong. Taste sensation is improving but some flavorsare still muted. He notes occasional nasal regurgitation. He has had no pharyngeal obstruction and no symptoms of aspiration pneumonia. He still gets radiating paresthesias down the legs when he bends his neck. He also notes occasional cramps in his tongue, when he suddenly has trouble moving his tongue and it actually turns pale. His has noticed these episodes as well. There are no clear inciting events, specifically this is not brought on by cold liquids. The symptoms passed within a few minutes. He has trouble articulating speech during these episodes. He does have a history of Raynaud's syndrome in the fingers in cold weather. Physical exam: He is accompanied today by his . He looks well, in good spirits Oral exam shows only minimal trismus, interincisor distance approximately 3.5 cm. The teeth are in excellent shape Tongue is mobile, very slight rightward deviation Palate shows some scarring in the left tonsillar pillar, but motion is overall normal Neck exam shows excellent cosmesis, no palpable adenopathy, no lymphedema. No bruits audible. The lungs are clear Cardiac exam is normal Abdomen is benign without hepatosplenomegaly or masses. Former G-tube site has healed completely with an inconspicuous scar Extremities are normal, no clubbing cyanosis or edema Neurologic exam is normal, reflexes 2+. Cranial nerves normal. No labs done for this visit I reviewed his [facility] CT scan of the neck from late December, which showed mild scarring in the leftpharynx, no adenopathy in the neck. Impression: Clinically HILARIO with excellent functional recovery 9 months from completion of curative intent chemoradiation. This degree of taste dysfunction and xerostomia is almost universal for this time point in posttreatment recovery. There meets syndrome from radiation, still present but a minorproblem. Left neck pain last month, likely positional/musculoskeletal, resolved. The episodes of tongue pallor and dysfunction that he describes sound very much like transient arterial spasms, not something I have personally encountered in my practice previously. This may be related to his background history of Raynaud's of the fingers. Plan: We discussed and validated his symptoms, and reinforced the concept of the new normal following chemoradiation for head neck cancer. He will continue to take good care of his teeth, using extra fluoride, and keep water handy at all times to help with xerostomia. We talked about the possibility that some of the symptoms will improve very slowly over the coming years, but some will likely be permanent to some degree. Ongoing follow-up per [facility] head and neck team standard plan (to include CBC, CMP, and TSH; ordinarily we get a CT scan of the neck at 1 year, but I think the mid-December scan will suffice). Gume Christy MD, FACP mortgage originator Hematology/Oncology Section [facility]/[address] [address] Voice recognition software used for this note; please excuse tooling mechanic errors. I personally reviewed past medical, surgical, family medical histories, reviewed current medications, vital signs, labs, and performed full review of systems. These are documented below the narrativefor clarity and succinctness. Outpatient Medications Marked as Taking for the 02/05/21 encounter (Office Visit) with Gume Christy MD Medication Sig Dispense Refill ??? loratadine (Claritin) 10 mg Tablet Take 10 mg by mouth daily. ??? amLODIPine-benazepril (LOTREL) 5-10 mg Capsule Take 1 capsule by mouth daily as needed. Review of Systems: Review of systems is negative for other PROGRAM EVALUATOR, bone, pulmonary, cardiac, GI, , extremity, neurologic, endocrine, skin, constitutional, emotional, or functional problems. Vitals Office Visit from 02/05/2021 in Hematology/Oncology at [facility] Weight 78.9 kg (174 lb) Height 170.2 cm (5' 7.01) BSA (Calculated - sq m) 1.93 sq meters BMI (Calculated) 27.24 Temp 36.4 ??C (97.5 ??F) Temp src Temporal Heart Rate 59 Heart Rate Source Right, NIBP Resp 16 BP 131/81 BP Location Right arm Patient Position Sitting SpO2 100 % Karnofsky Score 100 Body surface area is 1.93 meters squared. Wt Readings from Last 3 Encounters: 02/05/21 78.9 kg (174 lb) 11/20/20 77.6 kg (171 lb) 10/19/20 74.4 kg (164 lb) No results found for this or any previous visit (from the past 72 hour(s)). ++++++++++++++++++++++++++++++++++++++++++++++++++++ documented in this encounter Plan of Treatment Upcoming Encounters Date Type Department Care Team (Late st Contact Info) Description 05/31/2024 11:30 AM EST Office Visit Hematology/Oncolog y at [address] [phone] Tej Tipton MD [address] [facility] HEMATOLOGY & [place] [address] Stacy Valle APRN [facility] DR MEDICAL [place] [address] 06/01/2024 10:30 AM EST Scheduled View Only [place] [address] 06/01/2024 11:00 AM EST Office Visit [place] [phone] Luis E Chin MD [facility] DR RADIATION [place] [address] 06/04/2024 8:30 AM EST Hospital Encounter [place] [address] Rayshawn Suresh MD [facility] DR THORACIC [place] [address] 06/04/2024 8:30 AM EST - 06/04/2024 1:05 PM EST Surgery [place] [address] Rayshawn Suresh MD [facility] DR THORACIC [place] [address] @THORACOSCOPY, SURG; W PLEURODESIS (WRVU 10.83) Scheduled [...] tonsil documented in this encounter Care Teams Chip Applying Machine Tender Relationship Specialty Start Date End Date Tiny Walters APRN [address] [place] [phone] PCP - General Family Medicine 12/01/19 04/07/24 documented as of this encounter
--- OUTSIDE RECORDS SUMMARY | 2024-05-31 01:23 | XMS_ITS | Encounter Summary ---
Author Organization [facility] Address [facility] [place] [address] Care Team Providers Care Marketing Communications Leader Name Role Phone Romeo Tiny Lindsay APRN Primary Care Provider +1- [phone] Encounter Details Date Type Department Care Team (Late st Contact Info) Description 07/18/2021 1:00 PM EDT Office Visit Radiation Oncology at [address] [phone] Jose Martin Rae MD [facility] [place] [address] Tonsil cancer Social History Tobacco Use Types [...] Sign Reading Time Taken Comments Blood Pressure 125/82 07/18/2021 1:11 PM EDT Pulse 59 07/18/2021 1:11 PM EDT Temperature - - Respiratory Rate 18 07/18/2021 1:11 PM EDT Oxygen Saturation 100% 07/18/2021 1:11 PM EDT Inhaled Oxygen Concentration - - Weight - - Height - - Body Mass Index - - documented in this encounter Progress Notes * Jose Martin Rae MD - 07/18/2021 1:00 PM EDT Images from the original note [...] Time from therapy completion: 1 year ~ 3 months INTERVAL HISTORY: no interval issues Currently, he has the following symptoms: Symptom Description Intervention Pain Burning with certain foods, otherwise no pain. Dysphagia Limited by dryness primarily Xerostomia / Dysgeusia High level xerostomia with thick secretions, moderate dysgeusia Neck Fibrosis / Lymphedema / Pain He has had intermittent neck pain, right and left, but not currently Dental Using fluoride, seeing dentist Nutrition Issues / Weight Loss No issues Feeding Tube Not present Skin No issues Otalgia / Hearing Changes No issues Smoking Status Never smoker Voice Changes Denies Other No Issues ECOG PS: 1 Grade ECOG PERFORMANCE STATUS 0 Fully active, [...] confined to bed or chair EXAM Vitals: 07/18/21 1311 BP: 125/82 Patient Position: Sitting Pulse: 59 Resp: 18 SpO2: 100% Physical Exam Constitutional: Appearance: He is well-developed. HENT: Mouth/Throat: Comments: Visual inspection of OC and OP revealed no evidence of suspicious masses or lesions. Palpation revealed no suspicious masses and no induration along the posterior tongue. Moisture poor. Teeth in good repair. Eyes: Pupils: Pupils [...] foreshortening of epiglottis. HISTORY Allergies as of 07/18/2021 ??? (No Known Allergies) Past Medical History: Diagnosis Date ??? Asthma ??? Raynaud's disease ??? Tonsil cancer Past Surgical History: Procedure Laterality Date ??? IR G-TUBE PLACEMENT 02/11/2020 IR G-Tube Placement 02/11/2020 Jose Angel Choi MD [facility] INTERVENTIONL RAD ??? IR MEDIPORT PLACEMENT 02/11/2020 IR Mediport Placement 02/11/2020 Jose Angel Choi MD [facility] INTERVENTIONL RAD ??? IR MEDIPORT REMOVAL 08/10/2020 IR Mediport Removal 08/10/2020 Marquis Crawford MD [facility] INTERVENTIONL RAD ??? PRO LARYNGOSCOPY, DIRCT, OP SCOPE, BIOPSY Bilateral 01/05/2020 LARYNGOSCOPY, MICROSCOPE, WITH BIOPSY (WRVU 3.55) performed by Yrn Banuelos MD at [facility] MAIN OR ??? PRO REMOVAL OF TONSILS, 12+ Y/O Left 01/28/2020 TONSILLECTOMY AGE 12 AND OVER (WRVU 3.45) performed by Yrn Banuelos MD at [facility] MAIN OR Social History Socioeconomic History ??? [...] on file Housing Stability: Not on file History reviewed. No pertinent family history. ROS: I reviewed and agree with the nursing review of systems accompanying this encounter. The remainder of the comprehensive review of systems was negative with the exception of the pertinent positives and negatives noted above. MEDICATIONS Current Outpatient Medications on File Prior to Visit Medication Sig Dispense Refill ??? loratadine (Claritin) 10 mg Tablet Take 10 mg by mouth daily. ??? Ibuprofen 200 mg Capsule Take 600 [...] Toxicity: ?? Xerostomia / Dysgeusia: Significant xerostomia. BSSW. Given symptoms we will try [place]. Moderate dysgeusia. ?? Dysphagia: limited by dryness ?? Oral sensitivity: discussed avoiding triggering foods ?? Dental: seeing dentist, using fluoride ?? Thyroid Function: to follow with PCP FU: follow per HN grid documented in this encounter Plan of Treatment Upcoming Encounters Date Type Department Care Team (Late st Contact Info) Description 05/31/2024 11:30 AM EST Office Visit Hematology/Oncolog y at [address] [phone] Tej Tipton MD [facility] [place] HEMATOLOGY & [place] [address] Stacy Valle APRN [facility] [place] [address] 06/01/2024 10:30 AM EST Scheduled View Only [place] [address] 06/01/2024 11:00 AM EST Office Visit [place] [phone] Luis E Chin MD [facility] [place] [address] 06/04/2024 8:30 AM EST Hospital Encounter [place] [phone] Rayshawn Suresh MD [facility] [place] [address] 06/04/2024 8:30 AM EST - 06/04/2024 1:05 PM EST Surgery [place] [address] Rayshawn Suresh MD [facility] [place] [address] @THORACOSCOPY, SURG; W PLEURODESIS (WRVU 10.83) Scheduled [...] tonsil documented in this encounter Care Teams Marketing Communications Leader Relationship Specialty Start Date End Date Tiny Walters APRN [address] [place] [phone] PCP - General Family Medicine 12/01/19 04/07/24 documented as of this encounter
--- OUTSIDE RECORDS SUMMARY | 2024-05-31 01:23 | XMS_ITS | Encounter Summary ---
Author [facility] [place] [address] Care Team Providers Care Pipe Foreman Name Role Phone Tiny Walters APRN Primary Care Provider +1- [phone] Encounter Details Date Type Department Care Team (Late Contact Info) Description 08/02/2020 [place] [address] Jo Urena Social History Tobacco [...] * Telephone Encounter - Jo Urena - 08/02/2020 11:22 AM EDT Called pt to talk about PET Ct on 10/19. Need to see if pt wishes to see BG same day or wait until he is due for 9mon grid apt in Dec. LV for pt to call back. documented in this encounter Plan of Treatment Upcoming Encounters Date Type Department Care Team (Late Contact Info) Description 05/31/2024 11:30 AM EST Office Visit Hematology/Oncolog y at [address] [phone] Tej Tipton MD [address] [facility] HEMATOLOGY & [place] [address] Stacy Valle APRN [facility] [place] [address] 06/01/2024 10:30 AM EST Scheduled View Only Radiation Oncology at [place] [phone] 06/01/2024 11:00 AM EST Office Visit Radiation Oncology at [place] [phone] Luis E Chin MD [facility] [place] [address] 06/04/2024 8:30 AM EST Hospital Encounter Main Operating Room [place] [phone] Rayshawn Suresh MD [facility] [place] [address] 06/04/2024 8:30 AM EST - 06/04/2024 1:05 PM EST Surgery [place] [address] Rayshawn Suresh MD [facility] [place] [address] @THORACOSCOPY, SURG; W PLEURODESIS (WRVU 10.83) Scheduled [...] on filedocumented in this encounter Care Teams Pipe Foreman Relationship Specialty Start Date End Date Tiny Walters APRN [address] [place] [phone] PCP - General Family Medicine 12/01/19 04/07/24 documented as of this encounter
--- OUTSIDE RECORDS SUMMARY | 2024-05-31 01:23 | XMS_ITS | Encounter Summary ---
Author Organization [facility] [place] [address] Care Team Providers Care Champion Of Sustainable Design Name Role Phone Tiny Walters APRN Primary Care Provider +1- [phone] Reason for Visit * Reason Comments Other port flush Encounter Details Date Type Department Care Team (Late st Contact Info) Description 06/26/2020 11:00 AM EST Infusion Hematology Oncology at [address] [phone] Tonsil cancer Social History Tobacco Use Types [...] as of this encounter Progress Notes * Guera Morales RN - 06/26/2020 11:00 AM EST INFUSION THERAPY ADMINISTRATION NOTES DIAGNOSIS: Tonsil cancer REASON FOR VISIT: MEDIPORT FLUSH ONLY IV ACCESS: Mediport GAUGE: 19G BLOOD RETURN: yes ANY S/S OF INFECTION/EXTRAVASATIONS: no signs of IV complications observed IV FLUSHED WITH: 20cc NS and 500 units Heparin IV DISCONTINUED: yes ASSESSMENT: Patient tolerated treatment well. PLAN: Return to clinic per routine. documented in this encounter Plan of Treatment Upcoming Encounters Date Type Department Care Team (Late st Contact Info) Description 05/31/2024 11:30 AM EST Office Visit Hematology/Oncolog y at [address] [phone] Tej Tipton MD [address] [facility] HEMATOLOGY [place] [address] Stacy Valle APRN [facility] [place] [address] 06/01/2024 10:30 AM EST Scheduled View [place] [address] 06/01/2024 11:00 AM EST Office [place] [phone] Luis E Chin MD [facility] [place] [address] 06/04/2024 8:30 AM EST Hospital Encounter [place] [address] Rayshawn Suresh MD [facility] [place] [address] 06/04/2024 8:30 AM EST - 06/04/2024 1:05 PM EST Surgery [place] [address] Rayshawn Suresh MD [facility] [place] [address] @THORACOSCOPY, SURG; W PLEURODESIS (WRVU 10.83) Scheduled [...] tonsil documented in this encounter Care Teams Champion Of Sustainable Design Relationship Specialty Start Date End Date Tiny Walters APRN [address] [place] [address] PCP - General Family Medicine 12/01/19 04/07/24 documented as of this encounter
--- OUTSIDE RECORDS SUMMARY | 2024-05-31 01:23 | XMS_ITS | Encounter Summary ---
Author Organization [facility] [place] [address] Care Team Providers Care X Ray Developing Machine Operator Name Role Phone Tiny Walters APRN Primary Care Provider +1- [phone] Encounter Details Date Type Department Care Team (Latest Contact Info) Description 07/20/2020 9:15 AM EDT - 07/20/2020 9:58 AM EDT Hospital Encounter [place]ology [place] [phone] Tonsil cancer Discharge Disposition: Home Social History [...] as of this encounter Progress Notes * Jerrica Santoyo RN - 07/20/2020 9:33 AM EDT Patient Name: Zen Pickering Patient Age: 39 y.o. Birthdate: 1980 Admit date: 07/20/2020 Attending Physician: No att. providers found Access visit. See MAR and/or flowsheet. documented in this encounter Plan of Treatment Upcoming Encounters Date Type Department Care Team (Late st Contact Info) Description 05/31/2024 11:30 AM EST Office Visit Hematology/Oncolog y at [address] [phone] Tej Tipton MD [address] [facility] [place]ATOLOGY [place] [address] Stacy Valle APRN [facility] [place] [address] 06/01/2024 10:30 AM EST Scheduled View [place] [phone] 06/01/2024 11:00 AM EST Office [place] [address] Luis E Chin MD [facility] [address] [place] [address] 06/04/2024 8:30 AM EST Hospital Encounter [place] [address] Rayshawn Suresh MD [facility] [place] [address] 06/04/2024 8:30 AM EST - 06/04/2024 1:05 PM EST Surgery [place] [phone] Rayshawn Suresh MD [facility] DR [place] [address] @THORACOSCOPY, SURG; W PLEURODESIS (WRVU 10.83) Scheduled [...] Procedure Name Priority Date/Time Associated Diagnosis Comments HEMOGRAM Routine 07/20/2020 9:35 AM EDT Tonsil cancer DIFFERENTIAL, AUTOMATED Routine 07/20/2020 9:35 AM EDT Tonsil cancer HC CBC,PLT & AUTO DIFF Routine 9:35 AM EDT Tonsil cancer TSH Routine 07/20/2020 9:35 AM EDT HC MAGNESIUM, SERUM Routine 07/20/2020 9 :35 AM EDT Tonsil cancer COMPREHENSIVE METABOLIC PANEL Routine 07/20/2020 9:35 AM EDT Tonsil cancer documented in this encounter Results * TSH (07/20/2020 9:35 AM EDT) Thyroid Stimulating Hormone 2.04 0.27 - 4.20 mcIU/mL [facility] Blood specimen (specimen) Venous Draw / Unknown 07/20/2020 9:35 AM EDT 07/20/2020 10:00 AM EDT Narrative Resulting Agency Comment Spec In Lab Jose Martin Rae MD CHEMISTRY ORDERABLES [facility] [place] [address] * Differential, Automated (07/20/2020 9:35 AM EDT) Neutrophil % 52.6 % [facility] Neutrophil Absolute 1.75 1.70 - 6.10 x10(3)/[facility] Lymph % 31.8 % [facility] Lymphocytes Abs 1.1 0.9 - 3.2 x10(3)/[facility] Monocyte % 9.6 % [facility] Monocyte Abs 0.3 0.3 - 0.9 x10(3)/[facility] Eos % 5.1 % [facility] Eosinophils Abs 0.2 0.0 - 0.4 x10(3)/[facility] Basophil % 0.9 % [facility] Baso Absolute 0.0 0.0 - 0.1 x10(3)/[facility] Immature Gran % 0.00 % [facility] Comment: Immature granulocytes(IG's)percentage and absolute count will include metamyelocytes, myelocytes, and promyelocytes. Blood smears from CBCs yielding IG's will be scanned manually for concordance. If this scan disagrees with the automated IG or if promyelocytes are noted, a manual differential will be performed. Immature Gran Absolute 0.00 0.00 - 0.04 x10(3)/[facility] Blood specimen (specimen) 07/20/2020 9:35 AM EDT 07/20/2020 9:49 AM EDT Narrative Resulting Agency Comment Spec In Lab Dominique Echavarria APRN HEMATOLOGY ORDERA BLES [facility] [place] [address] * (ABNORMAL) Hemogram (07/20/2020 9:35 AM EDT) White Blood Cell 3.3(L) 4.0 - 9.5 x10(3)/mc L [facility] Red Blood Cell 4.36(L) 4.58 - 5.54 x10(6)/mc L [facility] Hemoglobin 13.2(L) 13.7 - 16.5 gm/dL [facility] Hematocrit 37.6(L) 40.5 - 48.5 % [facility] Mean Cell Volume 86.2 82.9 - 93.1 fL [facility] Mean Cell Hemoglobin 30.3 27.5 - 32.1 pg [facility] Mean Cell Hemoglobin Concentration 35.1 32.0 - 35.7 gm/dL [facility] Platelet 206 145 - 357 x10(3)/mc L [facility] RDW Standard Deviation 35.0(L) 36.0 - 45.0 fL [facility] RDW coefficient of variation 11.1(L) 11.4 - 13.8 % [facility] Mean Platelet Volume 9.3 7.6 - 12.9 fL [facility] NRBC% auto 0.0 % [facility] NRBC Absolute 0.000 0.000 - 0.000 x10(3)/mc L [facility] Blood specimen (specimen) 07/20/2020 9:35 AM EDT 07/20/2020 9:49 AM EDT Narrative Resulting Agency Comment Spec In Lab Dominique Echavarria APRN HEMATOLOGY ORDERA BLES Performing Organization Address [facility] Co de Phone Number [facility] [place] [address] * Magnesium (07/20/2020 9:35 AM EDT) Magnesium 0.81 0.69 - 1.07 mmol/L [facility] Blood specimen (specimen) 07/20/2020 9:35 AM EDT 07/20/2020 9:49 AM EDT Narrative Resulting Agency Comment Spec In Lab Dominique Echavarria APRN CHEMISTRY ORDERAB LES Performing Organization Address City/[facility]/ZIP Co de Phone Number [facility] [place] [address] * Comprehensive metabolic panel (non-fasting) (07/20/2020 9:35 AM EDT) Glucose 93 65 - 199 mg/dL [facility] Comment:Diabetes: >=200 mg/d L plus symptoms Blood Urea Nitrogen 17 10 - 20 mg/dL [facility] Creatinine 1.07 0.80 - 1.50 mg/dL [facility] Sodium 137 135 - 145 mmol/L [facility] Potassium 4.1 3.5 - 5.0 mmol/L [facility] Comment: Please note: ??Patients with WBC >100,000 may have falsely elevated Potassium levels. ??For accurate Potassium quantification in these patients send serum separator tube (gold top) for subsequent determinations. ??Contact the Clinical Chemistry Laboratory if there are any questions. Chloride 103 98 - 107 mmol/L [facility] Carbon Dioxide 24 22 - 31 mmol/L [facility] Anion Gap 10 5 - 15 mmol/L [facility] Calcium 9.6 8.5 - 10.5 mg/dL [facility] Protein, Total 8.0 6.1 - 8.0 gm/dL [facility] Albumin 4.6 3.2 - 5.2 gm/dL [facility] Aspartate Aminotransferase 24 0 - 39 unit/L [facility] Alanine Aminotransferase 24 0 - 55 unit/L [facility] Alkaline Phosphatase 75 40 - 130 unit/L [facility] Bilirubin, Total 0.7 0.2 - 1.3 mg/dL [facility] Est Glomerular Filtration Rate 88 >=60 mL/min/1. 73 m?? [facility] Comment: This patient? s estimated glomerular [...] Lab Dominique Echavarria APRN CHEMISTRY ORDERAB LES [facility] [place] [address] documented in this encounter Visit Diagnoses Diagnosis Tonsil cancer Malignant neoplasm of tonsil documented in this encounter Administered Medications Inactive Administered Medications - up to 3 most recent administrations Medication Order MAR Action Action Date Dose Rate Site sodium chloride 0.9 % (flush) flush 10-20 mL 10-20 mL, Intravenous, EVERY 1 MIN PRN, Starting on Fri07/20/20 at 0922, Until Fri07/21/20 at 0437, Director [employer] [facility], Routine Given 07/20/2020 9:33 AM EDT 20 mLs documented in this encounter Care Teams X Ray Developing Machine Operator Relationship Specialty Start Date End Date Tiny Walters APRN [address] [place] [phone] PCP - General Family Medicine 12/01/19 04/07/24 documented as of this encounter
--- OUTSIDE RECORDS SUMMARY | 2024-05-31 01:23 | XMS_ITS | Encounter Summary ---
Author Organization [facility] Address [facility] [place] [address] Care Team Providers Care Milled Rice Broker Name Role Phone Tiny Walters APRN Primary Care Provider +1- [phone] Encounter Details Date Type Department Care Team ([facility] st Contact Info) Description 06/21/2020 10:00 AM EST TH Visit (TeleHealth) Hematology/Oncology at [address] [phone] Carrie Jacob, ENGINE MAINTENANCE MECHANIC Social History Tobacco Use Types Packs/Day Years Used Date Smoking Tobacco: Never Smokeless Tobacco: Never Alcohol Use Standard Drinks/Week Comments Yes 1 (1 standard drink = 0.6 oz pur e alcohol) Sex and Gender Information Value Date Recorded Sex Assigned at Not on file Gender Identity Not on file Sexual Orientation Not on file documented as of this encounter Miscellaneous Notes * Treatment - Therapy - Carrie Jacob, ENGINE MAINTENANCE MECHANIC - 06/21/2020 10:00 AM ESTSummary: ENGINE MAINTENANCE MECHANIC Telephone Encounter Speech Language Pathology Telephone Encounter Attempted to contact patient via phone today; left VM with ENGINE MAINTENANCE MECHANIC contact information. ENGINE MAINTENANCE MECHANIC spoke with evaluating ENGINE MAINTENANCE MECHANIC through [facility] where patient had VFSE/MBSS performed closer to his home on 06/12; still awaiting full report but able to view images in PACS and discuss recommendations withevaluating ENGINE MAINTENANCE MECHANIC; patient is not at risk for airway compromise and is appropriate for po intake as tolerated at this time, has been tolerating IDDSI levels 0 - thin liquids, levels 5/6 solids per most recent interview; patient is appropriate for continued dysphagia exercise(s) to address swallowing inefficiency/atrophy, strategies for tolerating more regular textures, and continued trismus intervention. Plan: Subsequent session scheduled 1 week from today to address continued intervention for direct treatment planning/implementation, review of additional strategies to aid in swallowing/speech abilities and support quality of life. Plan to initiate MDTP program with patient with goal of transitioning offof tube feed given collaboration with RD. Please feel free to contact me with any questions or concerns regarding Mr. Pickering's care. Carrie Jacob MA CCC-ENGINE MAINTENANCE MECHANIC Speech-Language Pathologist [email or web address] documented in this encounter Plan of Treatment Upcoming Encounters Date Type Department Care Team (Late st Contact Info) Description 05/31/2024 11:30 AM EST Office Visit Hematology/Oncolog y at [address] [phone] Tej Tipton MD [facility] DR HEMATOLOGY & [place] [address] Stacy Valle APRN [facility] [place] [address] 06/01/2024 10:30 AM EST Scheduled View [place] [phone] 06/01/2024 11:00 AM EST Office [place] [address] Luis E Chin MD [facility] [place] [address] 06/04/2024 8:30 AM EST Hospital Encounter [place] [phone] Rayshawn Suresh MD [facility] [place] [address] 06/04/2024 8:30 AM EST - 06/04/2024 1:05 PM EST Surgery [place] [address] Rayshawn Suresh MD [facility] [place] [address] @THORACOSCOPY, SURG; W PLEURODESIS (WRVU 10.83) Scheduled [...] on filedocumented in this encounter Care Teams Milled Rice Broker Relationship Specialty Start Date End Date Tiny Walters, BATSHEVA [address] [place] [phone] PCP - General Family Medicine 12/01/19 04/07/24 documented as of this encounter
--- OUTSIDE RECORDS SUMMARY | 2024-05-31 01:23 | XMS_ITS | Encounter Summary ---
Author Organization Formerly [facility] [place] [address] Care Team Providers Care Drywall Mechanic Name Role Phone Tiny Walters APRN Primary Care Provider +1- [phone] Reason for Visit * Diagnostic Test (Routine) - Closed Specialty Diagnoses / Procedures Referred By Fritz lanier Referred To Contact Radiology Diagnoses Tonsil cancer Procedures NM PET CT Standard Plus Head and Neck NM PET CT Standard Plus Extremities and Head Dominique Echavarria APRN [facility] HEMATOLOGY [place] [address] [place] [address] Referral ID Status Reason Start Date Expiration Date V isits Requested Visits Authorized [id number] Closed Specialty Service Requested 07/20/2020 08/20/2020 1 1 Encounter Details Date Type Department Care Team (Late st Contact Info) Description 07/20/2020 10:00 AM EDT - 07/20/2020 11:59 PM EDT Hospital Encounter [place] [address] Dominique Echavarria DIP LUBE OPERATOR [facility] HEMATOLOGY [place] [address] Discharge Disposition: Home Social History [...] EST Office Visit Hematology/Oncolog y at [address] [phone] Tej Tipton MD [address] [facility] [place]ATOLOGY [place] [address] Stacy Valle APRN [facility] [place] [address] 06/01/2024 10:30 AM EST Scheduled View [place] [address] 06/01/2024 11:00 AM EST Office [place] [address] Luis E Chin MD [facility] [place] [address] 06/04/2024 8:30 AM EST Hospital Encounter [place] [address] Rayshawn Suresh MD [facility] [place] [address] 06/04/2024 8:30 AM EST - 06/04/2024 1:05 PM EST Surgery [place] [address] Rayshawn Suresh MD [facility] [place] [address] @THORACOSCOPY, SURG; W PLEURODESIS (WRVU 10.83) Scheduled [...] Routine 07/20/2020 1:18 PM EDT Tonsil cancer POCT GLUCOSE Routine 07/20/2020 11:57 AM EDT documented in this encounter Results * POCT Glucose (07/20/2020 11:57 AM EDT) Glucose, POC 82 65 - 199 mg/dL [facility] Comment: Supplemental ranges: <140 mg/dL before meals <180 mg/dL all other times of the day Blood specimen (specimen) 07/20/2020 11:57 AM EDT 07/20/2020 11:57 AM EDT Dominique Echavarria APRN POINT OF CARE JAMARCUS T ORDERABLES [facility] [place] [address] documented in this encounter Visit Diagnoses Not on filedocumented in this encounter Care Teams Drywall Mechanic Relationship Specialty Start Date End Date Tiny Walters APRN [address] [place] [phone] PCP - General Family Medicine 12/01/19 04/07/24 documented as of this encounter
--- OUTSIDE RECORDS SUMMARY | 2024-05-31 01:23 | XMS_ITS | Encounter Summary ---
Author Organization [facility] [place] [address] Care Team Providers Care District Superintendent Name Role Phone Tiny Walters APRN Primary Care Provider +1- [phone] Encounter Details Date Type Department Care Team (Latest Contact Info) Description 08/02/2020 11:00 AM EDT Office Visit Hematology/Oncology at [address] [phone] Carrie Jacob, CERTIFICATION AND SELECTION SPECIALIST Tonsil cancer; Dysphagia, oropharyngeal phase Social History [...] Notes * Treatment - Therapy - Carrie Jacob SLP - 08/02/2020 11:00 AM EDTSummary: CERTIFICATION AND SELECTION SPECIALIST Treatment Session Speech Language Pathology Progress Note Patient Profile: Zen Pickering is a 39-year-old man with 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 Interval History: Reports no odynophagia, tolerating most solid foods with exception of some particulate textures (ie, hamburger) inhibited mostly by changes in taste; continues to utilize ACT gum toaddress xerostomia as well as for active ROM components of ARK-J program. Denies increased pain with yawning with reviewed compensatory techniques from previous visit. HPI: Patient Active Problem List Diagnosis Code ??? 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 Raynaud's syndrome I73.00 ??? Gastrostomy tube in place Z93.1 Subjective: Gtube has been removed, improved affect; is looking forward to gradually getting back to baseline with overall exercise, tolerating various foods etc Objective: Pain: 0/10 at rest Patient is aware of instruction to stop use of ARK-J device if pain increases beyond 5/10 with use of Orastretch device at home Respiratory Status: Room air Current Diet: Level 0 Thin liquids, 6/7 soft/bite sized and regular solids Feeding / Oral Care Status: Pt is independent Using BSSR, is using biotene toothpaste, ACT gum Oral / Laryngeal Mechanism Clinical Assessment: denies additional changes relative to previous visit Trismus: REYNA: ?? Previous measurements 02/22/21 at 31.75 mm 05/10/20 at 25.4 mm 05/17/20 at 27 mm 05/24/20 at 30 mm 05/29/20 at 33 mm 06/14/20 30 mm 06/28/20 32 mm 07/12/20 30 mm 08/02/20 28 mm Trismus Severity - Mild (Jesus et al, 2006) Direct Trismus Treatment / Training: Not addressed due to time constraints during visit Initial REYNA: 28 mm Tissue Manipulation: Completed Stretch/Massage routine Passive exercise with Orastretch Device at 30-35 mm Hold 30 secs / 6-10 reps, 3 sets 3-4x/day Reported pain at 2-3 / 10 Active jaw ROM exercise: reports consistent rotary chewing with ACT gum for at least 4+ minutes Ending REYNA: 34 mm Assessment: Pt is appropriate for continued direct trismus treatment/education for continued management in 4 weeks, will likely be discharged at that time given progress to date; Patient is currentlyusing Orastretch device; overall he is tolerating ARK-J program well with significant benefit, has been able to verbalize comprehension of appropriate methods to progress through trismus management program safely. Patient demonstrated comprehension with all recommendations regarding his treatment plan to adhere to aspiration precautions and trismus/swallowing exercise as tolerated. Patient continues to be appropriate candidate for CERTIFICATION AND SELECTION SPECIALIST intervention given continued motivation and support from spouse. Pt will benefit from continued therapeutic interventions to achieve therapy goals. Diagnosis: right tonsil squamous cell carcinoma, oropharyngeal dysphagia Recommendations: Diet: Continue IDDSI Level 0 thin liquids as tolerated, IDDSI Level 6/7 solids as tolerated PO medications: whole with thin liquids Risk Management: Upright position during meals and for at least 30 mins following Sensory enhancement (flavor, texture, temperature): Reduced rate/volume of thin liquids, effortful saliva swallow between sips Secondary/dry effortful swallow, thin liquid wash to address vallecular [...] deemed necessary. (Goal Met 06/12/20, [facility]) Plan: Subsequent session scheduled 4 weeks from today to address continued intervention for direct treatment planning/implementation, review of additional strategies to aid in swallowing/speech abilities and support quality of life as needed. Plan to re-administer GTQ, MDADI and discuss discharge from CERTIFICATION AND SELECTION SPECIALIST services. Please feel free to contact me with any questions or concerns regarding Mr. Pickering's care. Carrie Jacob MA [facility])-CERTIFICATION AND SELECTION SPECIALIST Speech-Language Pathologist [email or web address] documented in this encounter Plan of Treatment Upcoming Encounters Date Type Department Care Team (Late st Contact Info) Description 05/31/2024 11:30 AM EST Office Visit Hematology/Oncolog y at [address] [phone] Tej Tipton MD [address] [facility] HEMATOLOGY [place] [address] Stacy Valle APRN [facility] [place] [address] 06/01/2024 10:30 AM EST Scheduled View [place] [address] 06/01/2024 11:00 AM EST Office Visit [place] [phone] Luis E Chin MD [facility] [place] [address] 06/04/2024 8:30 AM EST Hospital Encounter [place] [address] Rayshawn Suresh MD [facility] [place] [address] 06/04/2024 8:30 AM EST - 06/04/2024 1:05 PM EST Surgery [place] [address] Rayshawn Suresh MD [facility] [place] [address] @THORACOSCOPY, SURG; W PLEURODESIS (WRVU 10.83) Scheduled [...] phase documented in this encounter Care Teams District Superintendent Relationship Specialty Start Date End Date Tiny Walters APRN [address] [place] [phone] PCP - General Family Medicine 12/01/19 04/07/24 documented as of this encounter
--- OUTSIDE RECORDS SUMMARY | 2024-05-31 01:23 | XMS_ITS | Encounter Summary ---
Author Organization [facility] Address [facility] [place] [address] Care Team Providers Care Pharmacy Sales Assistant Name Role Phone Tiny Walters APRN Primary Care Provider +1- [phone] Encounter Details Date Type Department Care Team (Late st Contact Info) Description 10/25/2020 Notes Only Hematology/Oncology at [address] [phone] Carrie Jacob SLP Social History Tobacco Use Types Packs/Day Years Used Date Smoking Tobacco: Never Smokeless Tobacco: Never Alcohol Use Standard Drinks/Week Comments Yes 1 (1 standard drink = 0.6 oz pur e alcohol) Sex and Gender Information Value Date Recorded Sex Assigned at Not on file Gender Identity Not on file Sexual Orientation Not on file documented as of this encounter Miscellaneous Notes * Discharge - Therapy - Carrie Jacob SLP - 10/25/2020 11:43 AM EDTSummary: SKIN CARE SPECIALIST Discharge/Non-Treatment Note Speech Language Pathology Discharge/Non-Treatment Note Patient Profile: Zen Sousabensonconstance is a 39-year-old man with 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 Interval History: Per recent ENT visit (10/19) patient appears to have responded very nicely to his course of chemo radiation therapy for his stage IV squamous cell carcinoma; abnormal findings on thePET/CT done in June have resolved. Patient Active Problem List Diagnosis Code ??? 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 Raynaud's syndrome I73.00 ??? Gastrostomy tube in place Z93.1 ??? Dysphagia, oropharyngeal phase R13.12 ??? Aspiration pneumonia of right lower lobe J69.0 ??? Dehydration E86.0 ??? Choking due to phlegm in larynx T17.310A ??? Drug-induced nausea and vomiting R11.2, T50.905A Assessment: SKIN CARE SPECIALIST left VM for patient today, did not show for scheduled appointment. Pt is appropriate for discharge from direct trismus treatment given progress to date; Patient is has reported continued, appropriate use of Orastretch device; has been tolerating ARK-J program well with significant be nefit, has been able to verbalize comprehension of appropriate methods to progress through trismus management program safely, and demonstrates comprehension re: expectations for trismus management moving forward. Diagnosis: right tonsil squamous cell carcinoma, oropharyngeal dysphagia (resolved) Recommendations: Diet: Continue IDDSI Level 0 thin liquids as tolerated, IDDSI Level 6/7 solids as tolerated PO medications: whole with thin liquids Risk Management: Sensory enhancement (flavor, texture, temperature) Reduced rate/volume of thin liquids, effortful saliva swallow between sips Secondary/dry effortful swallow, thin liquid wash to address vallecular residue Speech Therapy Goals: Pt/carepartner will be independent with aspiration precautions, diet texture modifications, and safe/efficient swallowing strategies as outlined. (Goal Met) Pt will demonstrate effortful swallow technique with good execution to reduce muscle atrophy/as prophylactic swallowing exercise during chemo/RT. (Goal Met) Pt will demonstrate comprehension of trismus management techniques during course of cancer treatment and trismus HEP once treatment has been completed, as appropriate. (Goal Met) Pt will tolerate least restrictive diet textures/consistencies without overt evidence of dysphagia/aspiration. (Goal Met) Pt will maintain hydration/nutrition with optimal safety and efficiency. (Goal Met) Pt will increase MDADI global score to 4, maintain composite score above 80 given participation in HEP as outlined. N/A Further treatment goals to be determined pending results of Videofluoroscopic Swallow Study/Modified Barium Swallow Study [VFSS/MBSS] and/or Flexible/Fiberoptic Endoscopic Evaluation of Swallowing [FEES] as deemed necessary. (Goal Met 06/12/20, VFSS/MBSS at [facility]) Plan: Patient has met goals for discharge from SKIN CARE SPECIALIST services at this time. Pt is aware of s/sx to report to his medical team and/or process of contacting SKIN CARE SPECIALIST for follow up appt as needed. Please feel free to contact me with any questions or concerns regarding Mr. Pickering's care. Carrie Jacob MA CCC-SKIN CARE SPECIALIST Speech-Language Pathologist documented in this encounter Plan of Treatment Upcoming Encounters Date Type Department Care Team (Late st Contact Info) Description 05/31/2024 11:30 AM EST Office Visit Hematology/Oncolog y at [address] [phone] Tej Tipton MD [address] [facility] HEMATOLOGY & [place] [address] Stacy Valle APRN [facility] [place] [address] 06/01/2024 10:30 AM EST Scheduled View [place] [phone] 06/01/2024 11:00 AM EST Office [place] [phone] Luis E Chin MD [facility] [place] [address] 06/04/2024 8:30 AM EST Hospital Encounter [place] [phone] Rayshawn Suresh MD [facility] [place] [address] 06/04/2024 8:30 AM EST - 06/04/2024 1:05 PM EST Surgery [place] [phone] Rayshawn Suresh MD [facility] [place] [address] @THORACOSCOPY, SURG; W PLEURODESIS (WRVU 10.83) Scheduled [...] phase documented in this encounter Care Teams Pharmacy Sales Assistant Relationship Specialty Start Date End Date Tiny Walters, BATSHEVA [address] [place] [phone] PCP - General Family Medicine 12/01/19 04/07/24 documented as of this encounter
--- OUTSIDE RECORDS SUMMARY | 2024-05-31 01:23 | XMS_ITS | Encounter Summary ---
Author Organization [facility] [place] [address] Care Team Providers Care Nutrition Faculty Member Name Role Phone Tiny Walters APRN Primary Care Provider +1- [phone] Encounter Details Date Type Department Care Team (Late st Contact Info) Description 09/07/2020 Orders Only Hematology [place] [phone] Analilia Ozuna Social History Tobacco Use Types Packs/Day Years [...] AM EST Office Visit Hematology/Oncolog y at [address] [phone] Tej Tipton MD [address] [facility] DR HEMATOLOGY [place] [address] Stacy Valle APRN [facility] [place] [place] [address] 06/01/2024 10:30 AM EST Scheduled View Only [place] [phone] 06/01/2024 11:00 AM EST Office Visit [place] [address] Luis E Chin MD [facility] [place] [address] 06/04/2024 8:30 AM EST Hospital Encounter [place] [phone] Rayshawn Suresh MD [facility] [place] [address] 06/04/2024 8:30 AM EST - 06/04/2024 1:05 PM EST Surgery [place] [address] Rayshawn Suresh MD [facility] [place] [address] @THORACOSCOPY, SURG; W PLEURODESIS (WRVU 10.83) Scheduled [...] on filedocumented in this encounter Care Teams Nutrition Faculty Member Relationship Specialty Start Date End Date Tiny Walters APRN [address] [place] [phone] PCP - General Family Medicine 12/01/19 04/07/24 documented as of this encounter
--- OUTSIDE RECORDS SUMMARY | 2024-05-31 01:23 | XMS_ITS | Encounter Summary ---
Author Organization [facility] [place] [address] Care Team Providers Care Teleprinter Name Role Phone Walters Tiny Lindsay APRN Primary Care Provider +1- [phone] Encounter Details Date Type Department Care Team (Late st Contact Info) Description 07/20/2020 3:00 PM EDT Office Visit [place] [phone] Jose Martin Rae MD [facility] [place] [address] Tonsil cancer Social History Tobacco Use Types [...] as of this encounter Progress Notes * Jose Martin Rae MD - 07/20/2020 3:00 PM EDT Images from the original note were not included. 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 Post-therapy course: Time from therapy completion: ~ 3 months INTERVAL HISTORY: no interval issues Currently, he has the following symptoms: Symptom Description Intervention Pain Oral sensitivity associated with certain foods on the right, sometimes painful. Dysphagia Limited by dryness primarily Xerostomia / Dysgeusia High level xerostomia with minimal thick secretions, high level dysgeusia with some taste return Neck Fibrosis / Lymphedema / Pain Denies Dental To see dentist in near future and start fluoride supplementation Nutrition Issues / Weight Loss No issues Feeding Tube Removed today Skin No issues Otalgia / Hearing Changes [...] adenopathy in cervical, SCLV, ICLV ruth basins. Cardiovascular: Rate and Rhythm: Normal rate. Pulmonary: Effort: Pulmonary effort is normal. Breath sounds: Normal breath sounds. Skin: Findings: No erythema. Neurological: Mental Status: He is alert and oriented to person, place, and time. Cranial Nerves: No cranial nerve deficit. Psychiatric: Behavior: Behavior normal. Procedures: DL performed in ENT today HISTORY Allergies as of 07/20/2020 ??? (No Known Allergies) Past Medical History: Diagnosis Date ??? Asthma ??? Raynaud's disease ??? Tonsil cancer Past Surgical History: Procedure Laterality Date ??? IR G-TUBE PLACEMENT 02/11/2020 IR G-Tube Placement 02/11/2020 Jose Angel Choi MD [facility] INTERVENTIONL RAD ??? IR MEDIPORT PLACEMENT/EXCHANGE 02/11/2020 IR Mediport Placement 02/11/2020 Jose Angel Choi MD [facility] INTERVENTIONL RAD ??? PRO LARYNGOSCOPY, DIRCT, OP SCOPE, BIOPSY Bilateral 01/05/2020 LARYNGOSCOPY, MICROSCOPE, WITH BIOPSY (WRVU 3.55) performed by Yrn Banuelos MD at [facility] MAIN OR ??? PRO REMOVAL OF TONSILS, 12+ Y/O Left 01/28/2020 TONSILLECTOMY AGE 12 AND OVER (WRVU 3.45) performed by Yrn Banuelos MD at [facility] MAIN OR Social History Socioeconomic History [...] Gatherings with Friends and Family: ??? Attends Cheondoism Services: ??? Active Member of Clubs or Organizations: ??? Attends Club or Organization Meetings: ??? Marital Status: Intimate Partner Violence: ??? Fear of Current or Ex-Partner: ??? Emotionally Abused: ??? Physically Abused: ??? Sexually Abused: No family history on file. ROS: I reviewed and agree with the nursing review of systems accompanying this encounter. The remainder of the comprehensive review of systems was negative with the exception of the pertinent positives and negatives noted above. MEDICATIONS Current Outpatient Medications on File Prior to Visit Medication Sig Dispense Refill ??? ondansetron ODT (Zofran-ODT) 8 mg Tablet, Rapid Dissolve Take 1 tablet by mouth every 8 hours as needed for Nausea. May dissolve and put through G-tube. (Patient not taking: Reported on 05/24/2020) 20 tablet 0 ??? gabapentin (Neurontin) 250 mg/5 mL Solution By mouth: 5 ml 1st day once, then 5 ml twice a day x 2 days, then 5 ml three times a day (Patient not taking: Reported on 06/14/2020) 470 mL 1 ??? guaiFENesin ER (Mucinex) 600 mg Tablet Extended Release 12hr Take 1,200 mg by mouth 2 times daily. ??? polyethylene glycoL (Miralax) 17 gram/dose Powder Take 17 g by mouth daily. ??? docusate sodium (Colace) 100 mg Capsule Take 100 mg by mouth 2 times daily. ??? Ibuprofen 200 mg Capsule Take 600 mg by mouth every 6 hours as needed. ??? amLODIPine-benazepril (LOTREL) 5-10 mg Capsule Take 1 capsule by mouth daily as needed. ??? diphenhydrAMINE (Benadryl) 25 mg Capsule Take 25 mg by mouth every 6 hours as needed for Itching. ??? prochlorperazine (Compazine) 10 mg Tablet Take 1 tablet by mouth every 6 hours as needed for Nausea. (Patient not taking: Reported on 05/24/2020) 30 tablet 3 ??? loratadine (Claritin) 10 mg Tablet Take 10 mg by mouth daily as needed for Allergies. ??? albuteroL 90 mcg/actuation HFA Aerosol Inhaler Inhale 2 puffs into the lungs every 4 hours as needed for Wheezing. Use with spacer No current facility-administered medications on file prior to visit. IMAGING/LAB I have personally reviewed the imaging reports and images referenced in the oncologic hx and agree with the assessment as stated. Further pertinent imaging data below EXAMINATION: NM PET CT STANDARD PLUS HEAD AND NECK ?? CLINICAL HISTORY: completed chemoRT for tonsil cancer 04/2020 ? TECHNIQUE: Following IV injection of 23-ixhcfz-0-deoxyglucose (FDG) a standard uptake of approximately 60 minutes, a noncontrast CT scan followed by a PET scan were acquired from the top of head to mid thighs. The noncontrast CT was used for anatomic localization and photon attenuation correction of the PET scan. ?? Blood glucose level: 82 (mg/dL) ?? FDG dose: 11.3 mCi ?? COMPARISON: PET/CT 01/11/2020 ?? FINDINGS: ?? HEAD/NECK: Near complete metabolic resolution of the [...] dominant non-FDG avid left lower pole nodule. ?? CHEST: Normal activity in all soft tissue regions. Stable sub-5 mm pulmonary nodules in the right apex (axial image 104), posterior right lower lobe (axial image 140), and posterior left lower lobe (axial image 145). No other significant pulmonary nodules and no significant adenopathy. Central line present with the tip in the proximal right atrium. ?? ABDOMEN/PELVIS: Normal activity in all soft tissue regions. No significant adenopathy. Gastrostomy tube present. ?? SKELETON/EXTREMITIES: Decreased marrow activity in the cervical and upper thoracic spine is consistent with post radiation change. Normal activity in all other regions of the axial and visualized proximal appendicular skeleton. ?? IMPRESSION 1. No specific evidence for residual [...] thyroiditis. 6. No distant sites of metastasis. Recent Results (from the past 72 hour(s)) Comprehensive metabolic panel (non-fasting) Result Value Ref Range Glucose Lvl 93 65 - 199 mg/dL BUN 17 10 - 20 mg/dL Creatinine 1.07 0.80 - 1.50 mg/dL Sodium 137 135 - 145 mmol/L Potassium 4.1 3.5 - 5.0 mmol/L Chloride 103 98 - 107 mmol/L CO2 24 22 - 31 mmol/L Anion Gap 10 5 - 15 mmol/L Calcium 9.6 8.5 - 10.5 mg/dL Total Protein 8.0 6.1 - 8.0 gm/dL Albumin 4.6 3.2 - 5.2 gm/dL AST 24 0 - 39 unit/L ALT 24 0 - 55 unit/L Alk Phos 75 40 - 130 unit/L Total Bilirubin 0.7 0.2 - 1.3 mg/dL Estimated GFR 88 >=60 mL/min/1.73 m?? Magnesium Result Value Ref Range Magnesium 0.81 0.69 - 1.07 mmol/L Hemogram Result Value Ref Range WBC 3.3 (L) 4.0 - 9.5 x10(3)/mcL RBC 4.36 (L) 4.58 - 5.54 x10(6)/mcL Hemoglobin 13.2 (L) 13.7 - 16.5 gm/dL Hematocrit 37.6 (L) 40.5 - 48.5 % MCV 86.2 82.9 - 93.1 fL MCH 30.3 27.5 - 32.1 pg MCHC 35.1 32.0 - 35.7 gm/dL Platelets 206 145 - 357 x10(3)/mcL RDWSD 35.0 (L) 36.0 - 45.0 fL RDWCV 11.1 (L) 11.4 - 13.8 % MPV 9.3 7.6 - 12.9 fL nRBC % Auto 0.0 % nRBC Abs Auto 0.000 0.000 - 0.000 x10(3)/mcL Differential, Automated Result Value Ref Range Neutrophils % 52.6 % Neutr Abs (ANC) 1.75 1 - 6 x10(3)/mcL Lymphocytes % 31.8 % Lymphocytes Abs 1.1 0.9 - 3.2 x10(3)/mcL Monocytes % 9.6 % Monocyte Abs 0.3 0.3 - 0.9 x10(3)/mcL Eosinophils % 5.1 % Eosinophils Abs 0.2 0.0 - 0.4 x10(3)/mcL Basophils % 0.9 % Basophils Abs 0.0 0.0 - 0.1 x10(3)/mcL Immature Gran % 0.00 % Nunu Gran Abs 0.00 0.00 - 0.04 x10(3)/mcL TSH Result Value Ref Range TSH 2.04 0.27 - 4.20 mcIU/mL POCT Glucose Result Value Ref Range POC Glucose 82 65 - 199 mg/dL ASSESSMENT / PLAN Disease Status: HILARIO on exam and on PET-CT. There is low intensity activity c/w reactive changes, and we will repeat PET-CT in 3 months to confirm resolution. ?? We discussed that he is still at risk of recurrence and requires continued surveillance Toxicity: ?? Xerostomia / Dysgeusia: discussed expectation of improvement. Salivary substitutes, BSSW ?? Dysphagia: not present ?? Oral sensitivity: discussed avoiding triggering foods, and that this may diminish over time ?? Dental: to see dentist / start fluroide ?? Thyroid Function: WNL today FU: follow per HN grid documented in this encounter Plan of Treatment Upcoming Encounters Date Type Department Care Team (Late st Contact Info) Description 05/31/2024 11:30 AM EST Office Visit Hematology/Oncolog y at [address] [phone] Tej Tipton MD [address] [facility] [address] HEMATOLOGY & [place] [address] Stacy Valle APRN [facility] [place] [address] 06/01/2024 10:30 AM EST Scheduled View Only [place] [address] 06/01/2024 11:00 AM EST Office Visit [place] [phone] Luis E Chin MD [facility] [place] [address] 06/04/2024 8:30 AM EST Hospital Encounter [place] [address] Rayshawn Suresh MD [facility] [place] [address] 06/04/2024 8:30 AM EST - 06/04/2024 1:05 PM EST Surgery [place] [phone] Rayshawn Suresh MD [facility] [place] [address] @THORACOSCOPY, SURG; W PLEURODESIS (WRVU 10.83) Scheduled [...] tonsil documented in this encounter Care Teams Teleprinter Relationship Specialty Start Date End Date Tiny Walters APRN [address] [place] [phone] PCP - General Family Medicine 12/01/19 04/07/24 documented as of this encounter
--- OUTSIDE RECORDS SUMMARY | 2024-05-31 01:23 | XMS_ITS | Encounter Summary ---
Author Organization [facility] [place] [address] Care Team Providers Care Hat Steamer Name Role Phone Tiny Walters APRN Primary Care Provider +1- [phone] Encounter Details Date Type Department Care Team (Late Contact Info) Description 06/26/2020 1:20 PM EST Ancillary Procedure Radiology Library at [facility] [place] [address] Tiny Walters APRN [address] [place] [phone] Social History Tobacco Use Types Packs/Day Years [...] EST Office Visit Hematology/Oncolog y at [address] [phone] Tej Tipton MD [address] [facility] HEMATOLOGY & [place] [address] Stacy Valle APRN [facility] [place] [place] [address] 06/01/2024 10:30 AM EST Scheduled View Only [place] [address] 06/01/2024 11:00 AM EST Office Visit [place] [phone] Luis E Chin MD [facility] [place] [address] 06/04/2024 8:30 AM EST Hospital Encounter [place] [phone] Rayshawn Suresh MD [facility] [place] [address] 06/04/2024 8:30 AM EST - 06/04/2024 1:05 PM EST Surgery [place] [phone] Rayshawn Suresh MD [facility] [place] [address] @THORACOSCOPY, SURG; W PLEURODESIS (WRVU 10.83) Scheduled [...] FILM LIBRARY STORAGE ONLY DX CHEST Routine 06/26/2020 1:19 PM EST documented in this encounter Results * Film Library- Storage Only DX Chest (06/26/2020 1:19 PM EST) Narrative [facility] - 06/26/2020 1:19 PM EST This exam is auto-finalizing. It's purpose is for storage only. Tiny Walters APRN IMG FILM LIBRARY O RDERABLES JACQUELINE [place], [place] documented in this encounter Visit Diagnoses Not on filedocumented in this encounter Care Teams Hat Steamer Relationship Specialty Start Date End Date Tiny Walters APRN [address] [place] [phone] PCP - General Family Medicine 12/01/19 04/07/24 documented as of this encounter
--- OUTSIDE RECORDS SUMMARY | 2024-05-31 01:23 | XMS_ITS | Encounter Summary ---
Author Organization [facility] [place] [address] Care Team Providers Care Lockstitch Lining Maker Name Role Phone Tiny Walters APRN Primary Care Provider +1- [phone] Encounter Details Date Type Department Care Team (Late st Contact Info) Description 11/20/2020 11:00 AM EDT Office Visit Hematology/Oncology at [address] [phone] Gume Christy MD [address] [place] [address] [place] [address] Tonsil cancer Social History Tobacco Use Types [...] Sign Reading Time Taken Comments Blood Pressure 122/79 11/20/2020 11:01 AM EDT Pulse 49 11/20/2020 11:01 AM EDT Temperature 36.7 ??C (98.1 ??F) 11/20/2020 11:01 AM E DT Respiratory Rate 16 11/20/2020 11:01 AM EDT Oxygen Saturation 100% 11/20/2020 11:01 AM EDT Inhaled Oxygen Concentration - - Weight 77.6 kg (171 lb) 11/20/2020 11:01 AM EDT Height 170.2 cm (5' 7.01) 11/20/2020 11:01 AM E DT Body Mass Index 26.78 11/20/2020 11:01 AM EDT documented in this encounter Progress Notes * Gume Christy MD - 11/20/2020 11:00 AM EDT Images from the original note were not included. Hematology/Oncology Clinic [facility] Patient Active Problem List Diagnosis ??? 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 ??? Drug-induced nausea and vomiting ??? Choking due to phlegm in larynx ??? Dehydration ??? Aspiration pneumonia of right lower lobe ??? Dysphagia, oropharyngeal phase ??? Raynaud's syndrome Medical oncology checkup. He is now just over 6 months from completing chemoradiation. Overall he is doing quite well. His KPS is back to 100. He is working full-time. He and his family recently had an enjoyable vacation in [place]. He is bothered by moderate xerostomia. He keeps water with him at all times. This is especially necessary when he is out running, which he does 3 to 5 miles per day. Oral intake is minimally restricted. He finds meats challenging because of the dryness. Rough food textures also irritate the oral mucosa. Taste sensation is improving but not normal; spicy and acid foods are irritating. He is still learning what foods taste good in which do not. He is regained most of his pretreatment weight, but is still about 10 pounds under. A few months after his treatment was finished he noted tingling in the legs associated with neck flexion, consistent with Lhermitte's syndrome. This has improved but still comes on when he is running. It is bothersome but not severe. Otherwise his Raynaud's syndrome has not had a marked increase. He is taking good care of his teeth with daily fluoride treatments. He has had no dental problems. Physical exam: He looks well, in good spirits. Lean and healthy/athletic build Oral exam is benign. Scarring extensive in the left tonsillar pillar. No visible tumor. Tongue is fully mobile. Slight mucosal pallor in the posterior pharynx. No trismus. Teeth in excellent condition Neck exam shows excellent cosmesis, no palpable adenopathy. No lymphedema. The chest is clear to auscultation and percussion Former Mediport site is healed Cardiac exam is normal Abdomen is benign without hepatosplenomegaly or masses. Former G-tube site is healed completely Extremities normal, no clubbing cyanosis or edema Neurologic exam is normal. Reflexes 1+. No recent laboratory studies PET/CT repeated in September because of persistent spotty signal within the neck on the 3-month scan showed complete resolution. 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 He is content with his situation, and enjoying life, work, and family. Follow-up per [facility] head and neck team standard. Gume Christy MD, FACP messenger floorperson Hematology/Oncology Section [facility]/[address] [address] Voice recognition software used for this note; please excuse behavior therapist errors. I personally reviewed past medical, surgical, family medical histories, reviewed current medications, vital signs, labs, and performed full review of systems. These are documented below the narrativefor clarity and succinctness. No outpatient medications have been marked as taking for the 11/20/20 encounter (Office Visit) with Gume Christy MD. Review of Systems: Review of systems is negative for other REGIONAL SALES COORDINATOR, bone, pulmonary, cardiac, GI, , extremity, neurologic, endocrine, skin, constitutional, emotional, or functional problems. Vitals Office Visit from 11/20/2020 in Hematology/Oncology at [facility] Weight 77.6 kg (171 lb) Height 170.2 cm (5' 7.01) BSA (Calculated - sq m) 1.91 sq meters BMI (Calculated) 26.77 Temp 36.7 ??C (98.1 ??F) Temp src Temporal Heart Rate 49 Heart Rate Source Right, NIBP Resp 16 BP 122/79 BP Location Right arm Patient Position Sitting SpO2 100 % Karnofsky Score 100 Body surface area is 1.92 meters squared. Wt Readings from Last 3 Encounters: 11/20/20 77.6 kg (171 lb) 10/19/20 74.4 kg (164 lb) 07/20/20 73.1 kg (161 lb 3.2 oz) No results found for this or any previous visit (from the past 72 hour(s)). ++++++++++++++++++++++++++++++++++++++++++++++++++++ documented in this encounter Plan of Treatment Upcoming Encounters Date Type Department Care Team (Late st Contact Info) Description 05/31/2024 11:30 AM EST Office Visit Hematology/Oncolog y at [address] [phone] Tej Tipton MD [address] [facility] [address] HEMATOLOGY & [place] [address] Stacy Valle APRN [facility] [place] [address] 06/01/2024 10:30 AM EST Scheduled View [place] [phone] 06/01/2024 11:00 AM EST Office [place] [phone] Luis E Chin MD [facility] [place] [address] 06/04/2024 8:30 AM EST Hospital Encounter [place] [phone] Rayshawn Suresh MD [facility] [place] [address] 06/04/2024 8:30 AM EST - 06/04/2024 1:05 PM EST Surgery [place] [address] Rayshawn Suresh MD [facility] [place] [address] @THORACOSCOPY, SURG; W PLEURODESIS (WRVU 10.83) Scheduled [...] tonsil documented in this encounter Care Teams Lockstitch Lining Maker Relationship Specialty Start Date End Date Tiny Walters APRN [address] [place] [phone] PCP - General Family Medicine 12/01/19 04/07/24 documented as of this encounter
--- OUTSIDE RECORDS SUMMARY | 2024-05-31 01:23 | XMS_ITS | Encounter Summary ---
Author Organization [facility] [place] [address] Care Team Providers Care Engineering Vice President Name Role Phone Tiny Walters APRN Primary Care Provider +1- [phone] Encounter Details Date Type Department Care Team (Late st Contact Info) Description 08/15/2021 Telephone Radiation Oncology at [address] [phone] Janeen Duarte RN Social History Tobacco Use Types Packs/Day [...] encounter Miscellaneous Notes * Telephone Encounter - Janeen Duarte RN - 08/15/2021 6:35 PM EDT Telephone call to patient to inquire as to how pilocarpine working. No answer, Did leave message with intent of call and request for call back along with clinic contact information. Plan: Will return call to patient if he does not call back. * Telephone Encounter - Janeen Duarte RN - 08/15/2021 6:35 PM EDT ----- Message from Dionna Gardner RN sent at 07/27/2021 8:29 AM EDT ----- Regarding: call schaner pt He is returning from vacation 08/08. Read 07/26 note Call him if we haven;t heard from him ----- Message ----- From: Dionna Gardner RN Sent: 07/26/2021 5:11 PM EDT To: [facility]mie Rad Onc Nurse Check to see if oren is helping documented in this encounter Plan of Treatment Upcoming Encounters Date Type Department Care Team (Late st Contact Info) Description 05/31/2024 11:30 AM EST Office Visit Hematology/Oncolog y at [address] [phone] Tej Tipton MD [facility] HEMATOLOGY & [place] [address] Stacy Valle APRN [facility] [place] [address] 06/01/2024 10:30 AM EST Scheduled View [place] [address] 06/01/2024 11:00 AM EST Office [place] [address] Luis E Chin MD [facility] DR [place] [address] 06/04/2024 8:30 AM EST Hospital Encounter [place] [address] Rayshawn Suresh MD [facility] [address] [place] [address] 06/04/2024 8:30 AM EST - 06/04/2024 1:05 PM EST Surgery [place] [address] Rayshawn Suresh MD [facility] DR [place] [address] @THORACOSCOPY, SURG; W PLEURODESIS (WRVU 10.83) Scheduled [...] on filedocumented in this encounter Care Teams Engineering Vice President Relationship Specialty Start Date End Date Tiny Walters APRN [address] [place] [phone] PCP - General Family Medicine 12/01/19 04/07/24 documented as of this encounter
--- OUTSIDE RECORDS SUMMARY | 2024-05-31 01:23 | XMS_ITS | Encounter Summary ---
Author Organization [facility] Address [facility] [place] [address] Care Team Providers Care Licensed Funeral Director Name Role Phone Tiny Walters APRN Primary Care Provider +1- [phone] Encounter Details Date Type Department Care Team (Latest Contact Info) Description 07/12/2020 10:30 AM EDT Office Visit Hematology/Oncology at [address] [phone] Carrie Jacob, VIDEO GAME PROGRAMMER Tonsil cancer; Dysphagia, oropharyngeal phase Social History [...] Progress Notes * Carrie Jacob SLP - 07/12/2020 10:30 AM EDTSummary: VIDEO GAME PROGRAMMER Progress Note Speech Language Pathology Progress Note Patient Profile: Zen Pickering is a 39-year-old man with 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 Interval History: Reports no odynophagia, tolerating most solid foods with exception of some particulate textures (ie, hamburger) inhibited mostly by changes in taste; has been utilizing ACT gum to address xerostomia (did not have benefit from SalivaMax trial). Reports tingling down middle of back and down, discussed this with RN today who recommended follow up with PCP (likely not chemo related); also reports L side of jaw has had soreness, pain will increase when he needs to yawn only while using device, ie pain increases to 7-8/10 and remains here despite rest; pain does not occur with yawn outside of direct stretching. HPI: Patient Active Problem List Diagnosis Code [...] Reports stable weight on home scale. Subjective: States he still has Gtube in place which is becoming frustrating as he continues to tolerate more regular texture foods; Was able to speak with [facility] fundraising sale representative during visit with VIDEO GAME PROGRAMMER present today to further identify financing options for Orastretch device given high deductible; patient provided with phone number to contact [facility] to discuss further logistics; patient does demonstrate comprehension of need for more durable device to utilize as directed as he understands trismus monitoring and management is expected to be lifelong. Objective: Pain: 0/10 at rest Patient is [...] mm 06/28/20 32 mm 07/12/20 30 mm Trismus Severity - Mild (Jesus et al, 2006) Direct Trismus Treatment / Training: Not addressed due to time constraints during visit Initial REYNA: N/A Tissue Manipulation: Completed Stretch/Massage routine Passive exercise with modified Modified ARK-J Level 3 Device Hold 30 secs / 6 reps, 3 sets 4x/day Reported pain at 2-3 / 10 (increases to 7-8/10 if patient has yawn reflex during device use, then remains at this level; will continue to monitor; instructed patient to stop exercise if pain continues, attempt stretch/massage routine and assess for changes in pain level next day) Active jaw ROM exercise: able to tolerate for 4+ minutes; emphasis on over- exaggerated rotary chew movement(s) Ending REYNA: N/A Assessment: Pt is appropriate for continued direct trismus treatment/education for continued management in 2 weeks; Patient continues to use modified ARK-J level 3 and level 4 devices at home; overall he is tolerating ARK-J program well with significant benefit, however we have discussed some plateau effect and benefits of Orastretch device to better monitor device use specifics for HEP. Patient continues to be appropriate candidate for G tube removal from an oropharyngeal swallowing function/safety standpoint, TBD by care team. Discussed continued swallowing exercise(s) as toleratedwith MDTP guide, as patient is tolerating MDTP Level 10 solid foods. Patient demonstrated comprehension with all recommendations regarding [...] g tube as directed by MD / Pharmacist; patient is likely to have G tube removed within next few weeks per MD assessment Risk Management: Upright position during meals and [...] deemed necessary. (Goal Met 06/12/20, VFSS/MBSS at [facility]) Plan: Subsequent session scheduled 2 weeks from today to address continued intervention for direct treatment planning/implementation, review of additional strategies to aid in swallowing/speech abilities and support quality of life. Plan to reveiw MDTP guide as needed, re-administer MDADI, GTQ. Please feel free to contact me with any questions or concerns regarding Mr. Pickering's care. Carrie Jacob MA CCC-VIDEO GAME PROGRAMMER Speech-Language Pathologist [email or web address] documented in this encounter Plan of Treatment Upcoming Encounters Date Type Department Care Team (Late st Contact Info) Description 05/31/2024 11:30 AM EST Office Visit Hematology/Oncolog y at [address] [phone] Tej Tipton MD [address] [facility] HEMATOLOGY [place] [address] Stacy Valle, BATSHEVA [facility] [place] [address] 06/01/2024 10:30 AM EST Scheduled View Only Radiation Oncology at [place] [phone] 06/01/2024 11:00 AM EST Office Visit Radiation Oncology at [place] [phone] Luis E Chin MD [facility] [place] [address] 06/04/2024 8:30 AM EST Hospital Encounter Main Operating Room [place] [phone] Rayshawn Suresh MD [facility] [place] [address] 06/04/2024 8:30 AM EST - 06/04/2024 1:05 PM EST Surgery Main Operating Room [place] [phone] Rayshawn Suresh MD [facility] [place] [address] @THORACOSCOPY, SURG; W PLEURODESIS (WRVU 10.83) Scheduled [...] phase documented in this encounter Care Teams Licensed Funeral Director Relationship Specialty Start Date End Date Tiny Walters APRN [address] [place] [phone] PCP - General Family Medicine 12/01/19 04/07/24 documented as of this encounter
--- OUTSIDE RECORDS SUMMARY | 2024-05-31 01:23 | XMS_ITS | Encounter Summary ---
Author Organization [facility]ly [facility] [place] [address] Care Team Providers Care Lithographic Proofer Apprentice Name Role Phone Tiny Walters APRN Primary Care Provider +1- [phone] Encounter Details Date Type Department Care Team (Late st Contact Info) Description 07/26/2021 Telephone Radiation Oncology at [address] [phone] Dionna Gardner RN Social History [...] Telephone Encounter - Dionna Gardner RN - 07/26/2021 3:06 PM EDT Radiation Oncology Nurse Telephone Note [facility] [place] [place] ----- Message from Jose Martin Rae MD sent at 07/26/2021 2:29 PM EDT ----- Hi. The idea was to trial it for three days, and if it was helping to increase saliva production I will call in a month's supply. Please call him and see if it has helped him, and if so I can call casandra more durable supply. Thanks. ----- Message ----- From: Dionna Gardner RN Sent: 07/26/2021 12:13 PM EDT To: Jose Martin Rae MD, [facility] Rad Onc Nurse Dr Rae , do you want him to have more tabs than 20 ? ----- Message ----- From: Korina Gallo Sent: 07/26/2021 11:34 AM EDT To: [facility] Rad Onc Nurse Zen called asking if wrote his pilocarpine (Salagen) 5 mg Tablet for the wrong number of tablets, he said it was for only 20 tablets and to take 2-3 tablets a day. He also said it may take several days for this kick in and felt like he only had enough to take 3 days and did not want to run to the Pharmacy every 3 days to pick this up. He was wondering if it should it have been more tablets? Best call back [phone] and leave message if he doesn't get to phone 07/26/21 3:00 Telephone call to pt. He states he hasn't tried the salagen yet. He paid $10 for the 20 tablets. Heis concerned how much a month supply will cost. He states that his dry mouth is not the the end of the world and does not effect his QOL significantly. He is agreeable to seeing how much a 1 month supply costs. If it is too expensive, he will not pickit up. He is going on vacation in [address] days[address] Pt informed that Dr Rae will be updated of this information. He states he has no other concernsto be addressed at this time. He was instructed to call clinic with any questions or concerns. Patient verbalized understanding of these instructions. Plan : Dr Rae informed via this note. Amendment: Jose Martin Rae MD sent to Dionna Gardner RN Caller: Unspecified (Today, ??3:06 PM) He should know if it is helpful within a few days, so he can give it a shot with what he has and then he can . call us if it is helpful. If it is helpful we can see how much a month's supply is and what our options are. Thanks. Call back to patient. I explained to patient that Dr Rae wants him to try the 20 days supply ofSalagen to see if it is helpful before he prescribes more. Zen states he is not sure if he will try it before he leaves for vacation or not. He is leaving07/28 and returning 08/08. He once again stresses that his dry mouth is not a big deal for him. He promises that he will try it at some point and will call clinic if it is helpful and ask for another prescription. He reiterated that if it is too expensive, he will not pick it up. Dr Rae informed via this note. documented in this encounter Plan of Treatment Upcoming Encounters Date Type Department Care Team (Late st Contact Info) Description 05/31/2024 11:30 AM EST Office Visit Hematology/Oncolog y at [address] [phone] Tej Tipton MD [address] [facility] DR HEMATOLOGY & [place] [address] Stacy Valle APRN [facility] [place] [address] 06/01/2024 10:30 AM EST Scheduled View [place] [phone] 06/01/2024 11:00 AM EST Office [place] [phone] Luis E Chin MD [facility] [place] [address] 06/04/2024 8:30 AM EST Hospital Encounter [place] [phone] Rayshawn Suresh MD [facility] [place] [address] 06/04/2024 8:30 AM EST - 06/04/2024 1:05 PM EST Surgery [place] [address] Rayshawn Suresh MD [facility] [place] [address] @THORACOSCOPY, SURG; W PLEURODESIS (WRVU 10.83) Scheduled [...] on filedocumented in this encounter Care Teams Lithographic Proofer Apprentice Relationship Specialty Start Date End Date Tiny Walters APRN [address] [place] [phone] PCP - General Family Medicine 12/01/19 04/07/24 documented as of this encounter
--- OUTSIDE RECORDS SUMMARY | 2024-05-31 01:24 | XMS_ITS | Encounter Summary ---
Author Organization [facility] [place] [address] Care Team Providers Care Wafer Abrading Machine Tender Name Role Phone Tiny Walters APRN Primary Care Provider +1- [phone] Encounter Details Date Type Department Care Team (Late Contact Info) Description 06/07/2020 Telephone Radiation Oncology at [address] [phone] Janeen Duarte RN Social History [...] Telephone Encounter - Janeen Duarte RN - 06/07/2020 4:13 PM EST Background: Patient reported to SALAS Paul today that he was feeling off lately and wantedto discuss neurontin and it's side effects. Message left regarding intent of telephone call as above to discuss how he was feeling and questions regarding neurontin along with our clinic contact information and request for call back. documented in this encounter Plan of Treatment Upcoming Encounters Date Type Department Care Team (Late Contact Info) Description 05/31/2024 11:30 AM EST Office Visit Hematology/Oncolog y at [address] [phone] Tej Tipton MD [address] [facility] [address] HEMATOLOGY & [place] [address] Stacy Valle APRN [facility] [place] [address] 06/01/2024 10:30 AM EST Scheduled View [place] [address] 06/01/2024 11:00 AM EST Office [place] [phone] Luis E Chin MD [facility] [place] [address] 06/04/2024 8:30 AM EST Hospital Encounter [place] [address] Rayshawn Suresh MD [facility] [place] [address] 06/04/2024 8:30 AM EST - 06/04/2024 1:05 PM EST Surgery [place] [address] Rayshawn Suresh MD [facility] [place] [address] @THORACOSCOPY, SURG; W PLEURODESIS (WRVU 10.83) Scheduled [...] on filedocumented in this encounter Care Teams Wafer Abrading Machine Tender Relationship Specialty Start Date End Date Tiny Walters APRN [address] [place] [phone] PCP - General Family Medicine 12/01/19 04/07/24 documented as of this encounter
--- OUTSIDE RECORDS SUMMARY | 2024-05-31 01:24 | XMS_ITS | Encounter Summary ---
Author Organization [facility] Address [facility] [place] [address] Care Team Providers Care Wellness Educator Name Role Phone Tiny Walters APRN Primary Care Provider +1- [phone] Encounter Details Date Type Department Care Team (Latest Contact Info) Description 06/14/2020 10:30 AM EST Office Visit Hematology/Oncology at [address] [phone] Carrie Jacob, SOILS TECHNICIAN Dysphagia, oropharyngeal phase; Tonsil cancer Social History Tobacco Use Types [...] Progress Notes * Carrie Jacob SLP - 06/14/2020 10:30 AM ESTSummary: SOILS TECHNICIAN Treatment Progress Note Speech Language Pathology Telephone Encounter Patient Profile: Zen Pickering is a 39-year-old man with 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 Interval History: Reports less odynophagia, not using lidocaine prior to eating, reports lessened gag hypersensitivity, still present in AM; improving taste sensation; contines with BSSR; able to tolerate small sips of water, a bottle or two a day; Denies nausea today; continues to tolerate tube feeds; ~4x/day VFSS/MBSS on 06/12/20 at [facility]; able to view images from PACS to review during session today; no aspiration, some vallecular residue, dry swallow, secondary swallow, and thin liquid wash effective in clearing residue. Denies additional coughing/throat clearing with PO intake; states he has started to thin oral secretions with water. Back to work a few hours a day from home. HPI: Patient Active Problem List Diagnosis Code ??? 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 Raynaud's syndrome I73.00 ??? Gastrostomy tube in place Z93.1 RD visit 05/29/20: Meds: reviewed Labs: NNL Estimated body mass index is 25.59 kg/m?? as calculated from the following: Height as of an earlier encounter on 05/29/20: 170.5 cm (5' 7.13). Weight as of an earlier encounter on 05/29/20: 74.4 kg (164 lb). Wt Readings from Last 3 Encounters: 05/29/20 74.4 kg (164 lb) 05/24/20 73.8 kg (162 lb 12.8 oz) 05/10/20 73.7 kg (162 lb 6.4 oz) Previous weights: 03/16/20: 170 lbs 02/16/20: 180 lbs 02/11/20: 179 lbs Subjective: Patient states he is able to tolerate soft foods (IDDSI Levels 4/5); reports reduction in overall pain relative to previous week but less appetite given increase in thick phlegm Objective: Pain: 2-3/10, mostly right posterior tongue, less consistent odynophagia but still occasionally present; pain at 5/10 with use of ARK J Level 3 device, aware of instruction to stop use of device if pain increases beyond 5/10 until SOILS TECHNICIAN follow up session on 06/14. Respiratory Status: Room air Current Diet: Level 0 Thin liquids, some mixed consistencies (soup w soft noodles) Feeding / Oral Care Status: Pt is independent Using BSSR, is using biotene toothpaste Oral / Laryngeal Mechanism Clinical Assessment: Unable to view; denies additional changes relative to previous visit Trismus: REYNA: ?? Previous measurements 02/22/21 at 31.75 mm 05/10/20 at 25.4 mm 05/17/20 at 27 mm 05/24/20 at 30 mm 05/29/20 at 33 mm Trismus Severity - Mild (Jesus et al, 2006) Direct Trismus Treatment / Training: Initial REYNA: 30 mm Tissue Manipulation: Completed Stretch/Massage routine Passive exercise with modified ARK-J Level 3 Device at home Hold 30 secs / 6 reps, 3 sets 4x/day Reported pain at 3-4 / 10 near R maxillary area, dissipates to 2-3/10 with holds, repetitions Active jaw ROM exercise: able to tolerate for 4+ minutes; emphasis on over- exaggerated rotary chew movement(s) Ending REYNA: 33 mm Assessment: Pt is appropriate for continued direct trismus treatment/education for continued management in 2 weeks; Patient is currently using modified ARK-J level 3 device; overall he is tolerating ARK-J program well with significant benefit. Discussed continued prophylactic swallowing exercise as tolerated, increasing to more viscous consistencies, soft solids as tolerated, with plan to introduce MDTP program during subsequent session; patient is in agreement. Patient demonstrated comprehension with all recommendations regarding [...] 0 thin liquids as tolerated, IDDSI Level 4/5 solids as tolerated PO medications: via g tube as directed by MD / Pharmacist Risk Management: For po intake when tolerated - Upright position during meals and for at [...] deemed necessary. (Goal Met 06/12/20, VFSS/MBSS at [facility]) Plan: Subsequent session scheduled 2 weeks from today to address continued intervention for direct treatment planning/implementation, review of additional strategies to aid in swallowing/speech abilities and support quality of life. Plan to initiate MDTP program with patient with goal of transitioning off of tube feed given collaboration with RD. Please feel free to contact me with any questions or concerns regarding Mr. Pickering's care. Carrie Jacob MA CCC-SOILS TECHNICIAN Speech-Language Pathologist [email or web address] documented in this encounter Plan of Treatment Upcoming Encounters Date Type Department Care Team (Late st Contact Info) Description 05/31/2024 11:30 AM EST Office Visit Hematology/Oncolog y at [address] [phone] Tej Tipton MD [facility] HEMATOLOGY & [place] [address] Stacy Valle APRN [facility] [place] [address] 06/01/2024 10:30 AM EST Scheduled View Only [place] [phone] 06/01/2024 11:00 AM EST Office Visit [place] [phone] Luis E Chin MD [facility] [place] [address] 06/04/2024 8:30 AM EST Hospital Encounter [place] [address] Rayshawn Suresh MD [facility] [place] [address] 06/04/2024 8:30 AM EST - 06/04/2024 1:05 PM EST Surgery [place] [address] Rayshawn Suresh MD [facility] [place] [address] @THORACOSCOPY, SURG; W PLEURODESIS (WRVU 10.83) Scheduled Procedures Name Priority Associated Diagnoses Date/Ti me @THORACOSCOPY, SURG; W PLEURODESIS (WRVU 10.83) metastatic pleural effusion 06/04/2024 8:30 AM EST BRONCHOSCOPY, DIAGNOSTIC (WRVU 2.53) metastatic pleural effusion 06/04/2024 8:30 AM EST DIONNA\ALMA.CATHETER,TUNNELED, WITH SQ PORT OR PUMP OVER 5YR (WRVU 5.79) metastatic pleural effusion 06/04/2024 8:30 AM EST documented as of this encounter Visit Diagnoses Diagnosis Dysphagia, oropharyngeal phase Tonsil cancer Malignant neoplasm of tonsil documented in this encounter Care Teams Wellness Educator Relationship Specialty Start Date End Date Tiny Walters APRN [address] [place] [phone] PCP - General Family Medicine 12/01/19 04/07/24 documented as of this encounter
--- OUTSIDE RECORDS SUMMARY | 2024-05-31 01:24 | XMS_ITS | Encounter Summary ---
Author Organization [facility] [place] [address] Care Team Providers Care Packaging Tech Name Role Phone Tiny Walters APRN Primary Care Provider +1- [phone] Encounter Details Date Type Department Care Team (Latest Contact Info) Description 05/29/2020 9:30 AM EST Office Visit Hematology/Oncology at [address] [phone] Gume Christy MD [address] [place] [address] [place] [address] Tonsil cancer; Gastrostomy tube in place; Dysphagia, oropharyngeal phase Social History Tobacco Use [...] Sign Reading Time Taken Comments Blood Pressure 132/81 05/29/2020 9:37 AM EST Pulse 95 05/29/2020 9:37 AM EST Temperature 36.3 ??C (97.4 ??F) 05/29/2020 9:37 AM ES T Respiratory Rate 16 05/29/2020 9:37 AM EST Oxygen Saturation 100% 05/29/2020 9:37 AM EST Inhaled Oxygen Concentration - - Weight 74.4 kg (164 lb) 05/29/2020 9:37 AM EST Height 170.5 cm (5' 7.13) 05/29/2020 9:37 AM ES T Body Mass Index 25.59 05/29/2020 9:37 AM EST documented in this encounter Progress Notes * Gume Christy MD - 05/29/2020 9:30 AM EST Images from the original note were not included. Hematology/Oncology Clinic [facility] Patient Active Problem List Diagnosis ??? [...] 10/18/20 01/18/21 ON ACTIVE TREATMENT COMPLETED TREATMENT [place] - MD x x [place] - AP x Med Onc x x x x x x x x x x (SCP--HEAVY EQUIPMENT OPERATOR/PAVER) Rad Onc x x x x x [...] 24mo 2.5yrs 3yrs 3.5yrs 4yrs 4.5yrs 5yrs 12/23/21 03/23/22 06/23/22 09/23/22 12/23/22 06/23/23 12/23/23 06/23/24 12/23/24 06/23/25 12/23/25 COMPLETED TREATMENT [place] - MD x x x [place] - AP x Med Onc x x [...] 5 YEARS: Alternate annual follow-up appointments between [place] AP and MD, beginning with AP at 6-year appt. ??? Drug-induced nausea and vomiting ??? Choking due to phlegm in larynx ??? Dehydration ??? Aspiration pneumonia of right lower lobe ??? Dysphagia, oropharyngeal phase ??? Gastrostomy tube in place Balloon-retained (5 mL inflation), 16 Fr, placed by [facility] 02/11/2020 ??? Raynaud's syndrome Medical oncology checkup. He is now 5 weeks from completion of chemoradiation. Overall he has made slow but steady progress. He has been working with Carrie MARINA on dysphagia and trismus, using a tongue blade jaw expanding device. Is able to get up to approximately 32 mm interincisor distance. He still has pain on the right side of the tongue and lateral pharynx. He is bothered by food or liquids that are acidic, too hot, or too cold, but he is making some progress with oral nutrition. He still uses the feeding tube 4 times a day. He has gained some weight. Pain at the former tumor site still requires gabapentin but no longer any narcotics. He has had no aspirationsymptoms. His mouth is still quite dry, especially in the morning; phlegm is still copious but verythick. Energy level has improved but is still impaired, with KPS approximately 80. He is having some insurance difficulties, and his short-term disability will run out in mid May and there is a plan tohave him go back to work at a reduced schedule. No residual chemotherapy side effects such as peripheral neuropathy; he had some tinnitus during treatment but this has resolved. He has noticed some granulation tissue emerging around the feeding tube, otherwise feeding tube hasbeen working fine. Bowels are regular with the use of MiraLAX. Physical exam: He looks well, in good spirits. Oral exam shows healing but still some residual mucositis in the right tonsil bed; no visible tumor. Tongue is mobile but still deviates to the right, with mild diffuse fasciculations. He is able to protrude the tongue approximately 1.5 cm beyond the incisors. Moderate trismus, approximately 3 cm. Teeth are in good repair Neck exam is without adenopathy. Complete resolution of radiation dermatitis. Excellent cosmesis. The lungs are clear Cardiac exam is normal Abdomen is benign, without hepatosplenomegaly or masses. The G-tube site is clean except for a small half circumferential nubbin of granulation tissue. No recent labs or x-ray studies. Impression: Regionally advanced p16 positive right tonsil cancer, 5 weeks status post completion ofdefinitive chemoradiation with excellent response at the primary by physical examination. Ongoing mucositis, tissue sensitivity, dysphagia, trismus, and decreased exercise tolerance, all expected toxicities of this aggressive therapy. Plan: I applied silver nitrate cautery sticks to the granulation tissue. Anticipate regression of this over the next few days. He will call if it regrows or gets worse and we will get him in for repeat applications. I assured him that this is normal and was nothing to worry about. Encouraged his ongoing rehab efforts with Ms. Jacob, and with the home trismus device. Suggested that he try some xylitol dry mouth lozenges at night to help with the morning cotton mouth. I advised him that it seems medically reasonable to return to work on a reduced schedule basis in mid May. However, his lack of energy and the need for a suction machine frequently during the day would require accommodation for more privacy in his workspace to reduce the risk of aerosol borne disease during this pandemic, and it would be medically most reasonable for him to remain on at least partial disability for a number of months, 4 or 6 at least. He is meeting with MARY ANN Peterson on the disability situation. Follow-up per head and neck standard practice. He is booked for restaging visit at [facility] including a PET/CT on 07/20. Gume Christy MD, FACP fiber optics engineer Hematology/Oncology Section [facility]/[address] [id number] Voice recognition software used for this note; please excuse automatic pattern edger errors. I personally reviewed past medical, surgical, family medical histories, reviewed current medications, vital signs, labs, and performed full review of systems. These are documented below the narrativefor clarity and succinctness. Outpatient Medications Marked as Taking for the 05/29/20 encounter (Office Visit) with Gume Christy MD Medication Sig Dispense Refill ??? lidocaine (XYLOCAINE) 2 % Solution Take a small amount on a Q-tip and apply to irritated area on tongue 100 mL 0 ??? gabapentin (Neurontin) 250 mg/5 mL Solution By mouth: 5 ml 1st day once, then 5 ml twice a day x 2 days, then 5 ml three times a day 470 mL 1 Review of Systems: Review of systems is negative for other PULMONARY CARE NURSE, bone, pulmonary, cardiac, GI, , extremity, neurologic, endocrine, skin, constitutional, emotional, or functional problems. Vitals Office Visit from 05/29/2020 in Hematology/Oncology at [facility] Weight 74.4 kg (164 lb) Height 170.5 cm (5' 7.13) BSA (Calculated - sq m) 1.88 sq meters BMI (Calculated) 25.59 Temp 36.3 ??C (97.4 ??F) Temp src Temporal Heart Rate 95 Heart Rate Source Right, NIBP Resp 16 BP 132/81 BP Location Right arm Patient Position Sitting SpO2 100 % Karnofsky Score 80 Body surface area is 1.88 meters squared. Wt Readings from Last 3 Encounters: 05/29/20 74.4 kg (164 lb) 05/24/20 73.8 kg (162 lb 12.8 oz) 05/10/20 73.7 kg (162 lb 6.4 oz) No results found for this or any previous visit (from the past 72 hour(s)). ++++++++++++++++++++++++++++++++++++++++++++++++++++ documented in this encounter Plan of Treatment Upcoming Encounters Date Type Department Care Team (Late st Contact Info) Description 05/31/2024 11:30 AM EST Office Visit Hematology/Oncolog y at [address] [phone] Tej Tipton MD [address] [facility] [place]AT[place]Y [place] [address] Stacy Valle APRN [facility] [place] [address] 06/01/2024 10:30 AM EST Scheduled View [place] [phone] 06/01/2024 11:00 AM EST Office [place] [phone] Luis E Chin MD [facility] [place] [address] 06/04/2024 8:30 AM EST Hospital Encounter [place] [phone] Rayshawn Suresh MD [facility] [place] [address] 06/04/2024 8:30 AM EST - 06/04/2024 1:05 PM EST Surgery [place] [address] Rayshawn Suresh MD [facility] [place] [address] @THORACOSCOPY, SURG; W PLEURODESIS (WRVU 10.83) Scheduled [...] neoplasm of tonsil Gastrostomy tube in place Dysphagia, oropharyngeal phase documented in this encounter Care Teams Packaging Tech Relationship Specialty Start Date End Date Tiny Walters, PAINTER HAND [address] [place] [phone] PCP - General Family Medicine 12/01/19 04/07/24 documented as of this encounter
--- OUTSIDE RECORDS SUMMARY | 2024-05-31 01:24 | XMS_ITS | Encounter Summary ---
[place] [address] Care Team Providers Care Hot Punch Press Operator Name Role Phone Tiny Walters APRN Primary Care Provider +1- [phone] Encounter Details Date Type Department Care Team (Late Contact Info) Description 05/30/2020 Telephone Hematology [place] [phone] Stacy Monae RN Social History Tobacco Use Types Packs/Day [...] encounter Miscellaneous Notes * Telephone Encounter - Stacy Monae RN - 05/30/2020 2:30 PM ESTSummary: Insurance PA Number Message received from clinical church secretary: Tressa from [employer] ([employer]) called to let us know if anything is needed for PA's for this patientto please contact her : [phone] documented in this encounter Plan of Treatment Upcoming Encounters Date Type Department Care Team (Late Contact Info) Description 05/31/2024 11:30 AM EST Office Visit Hematology/Oncolog y at [address] [phone] Tej Tipton MD [address] [facility] HEMATOLOGY & [place] [address] Stacy Valle APRN [facility] [place] [address] 06/01/2024 10:30 AM EST Scheduled View [place] [address] 06/01/2024 11:00 AM EST Office [place] [phone] Luis E Chin MD [facility] [place] [address] 06/04/2024 8:30 AM EST Hospital Encounter [place] [address] Rayshawn Suresh MD [facility] [place] [address] 06/04/2024 8:30 AM EST - 06/04/2024 1:05 PM EST Surgery [place] [address] Rayshawn Suresh MD [facility] [place] [address] @THORACOSCOPY, SURG; W PLEURODESIS (WRVU 10.83) Scheduled [...] on filedocumented in this encounter Care Teams Hot Punch Press Operator Relationship Specialty Start Date End Date Tiny Walters APRN [address] [place] [phone] PCP - General Family Medicine 12/01/19 04/07/24 documented as of this encounter
--- OUTSIDE RECORDS SUMMARY | 2024-05-31 01:24 | XMS_ITS | Encounter Summary ---
Author Organization [facility] [address] Care Team Providers Care Leather Parts Matcher Name Role Phone Tiny Walters APRN Primary Care Provider +1- [phone] Reason for Referral * Diagnostic Test (Routine) - Closed Specialty Diagnoses / Procedures Referred By Fritz lanier Referred To Contact Radiology Diagnoses Tonsil cancer Procedures NM PET CT Standard Plus Head and Neck NM PET CT Standard Plus Extremities and Head Dominique Echavarria APRN [facility] [place] [address] [place] [address] Referral ID Status Reason Start Date Expiration Date V isits Requested Visits Authorized [id number] Closed Specialty Service Requested 07/20/2020 08/20/2020 1 1 Encounter Details Date Type Department Care Team (Late st Contact Info) Description 05/12/2020 Orders Only Hematology [place] [address] Dominique Echavarria APRN [facility] [place] [address] Tonsil cancer Social History Tobacco Use Types [...] AM EST Office Visit Hematology/Oncolog y at [address] [phone] Tej Tipton MD [address] [facility] HEMATOLOGY & [place] [address] Stacy Valle APRN [facility] [place] [address] 06/01/2024 10:30 AM EST Scheduled View Only [place] [phone] 06/01/2024 11:00 AM EST Office Visit [place] [phone] Luis E Chin MD [facility] [place] [address] 06/04/2024 8:30 AM EST Hospital Encounter [place] [phone] Rayshawn Suresh MD [facility] [place] [address] 06/04/2024 8:30 AM EST - 06/04/2024 1:05 PM EST Surgery [place] [phone] Rayshawn Suresh MD [facility] [place] [address] @THORACOSCOPY, SURG; W PLEURODESIS (WRVU 10.83) Scheduled [...] cancer 04/2020 TECHNIQUE: Following IV injection of 03-qrnqog-3-deoxyglucose (FDG) a standard uptake of approximately 60 [...] Note Michael Dietz MD - 07/20/2020 EXAMINATION: NM PET CT STANDARD PLUS HEAD AND NECK CLINICAL HISTORY: completed chemoRT for tonsil cancer 04/2020 TECHNIQUE: Following IV injection of 56-rikagj-6-deoxyglucose (FDG) astandard uptake of approximately 60 minutes, [...] image 104), posterior right lower lobe (axial ), and posterior left lower lobe (axial image [...] Diagnosis Tonsil cancer Malignant neoplasm of tonsil Tonsil cancer Malignant neoplasm of tonsil documented in this encounter Care Teams Leather Parts Matcher Relationship Specialty Start Date End Date Tiny Walters APRN [address] [place] [phone] PCP - General Family Medicine 12/01/19 04/07/24 documented as of this encounter
--- OUTSIDE RECORDS SUMMARY | 2024-05-31 01:24 | XMS_ITS | Encounter Summary ---
Author Organization [facility] Address [facility] [place] [address] Care Team Providers Care Gasoline Tester Name Role Phone Tiny Walters APRN Primary Care Provider +1- [phone] Encounter Details Date Type Department Care Team (Late st Contact Info) Description 05/10/2020 Telephone Hematology/Oncology at [address] [phone] Social History [...] Telephone Encounter - Tonya Machado RD - 05/10/2020 1:28 PM EST Nutrition Follow Up - phone call Spoke with patient's Janett on the phone. Patient has visits with BRAIDING MACHINE TENDER and Dr. Rae today. Patient is still relying on tube feeds for all of nutrition at this time. Takes a few sips of water by mouth. Smells food and has appetite to try it, but is struggling with ageusia. Tube feedings are going well. Denies issues with g-tube. Still has a few [employer] cartons left, but also using Nutren 1.5 via gravity bags. Administering 1 carton [employer] 1.4 in the AM. Three following feedings consisting of 1.5 cartons Nutren 1.5 each. Once out of [employer], will use only Nutren 1.5 with goal for6 cartons per day to provide 2250kcals, 102 grams protein, and 1146 ml free water. Weight today: 73.7 kg (162 lbs) - stable Will send out another box of donated Nutren 1.5 as well as gravity bags and additional bolus syringes. Will continue to follow up. documented in this encounter Plan of Treatment Upcoming Encounters Date Type Department Care Team (Late st Contact Info) Description 05/31/2024 11:30 AM EST Office Visit Hematology/Oncolog y at [address] [phone] Tej Tipton MD [address] [facility] HEMATOLOGY [place] [address] Stacy Valle APRN [facility] [place] [address] 06/01/2024 10:30 AM EST Scheduled View Only Radiation [place] [phone] 06/01/2024 11:00 AM EST Office Visit Radiation [place] [phone] Luis E Chin MD [facility] [place] [address] 06/04/2024 8:30 AM EST Hospital Encounter [place] [phone] Rayshawn Suresh MD [facility] [place] [address] 06/04/2024 8:30 AM EST - 06/04/2024 1:05 PM EST [place] [phone] Rayshawn Suresh MD [facility] [place] [address] @THORACOSCOPY, SURG; W PLEURODESIS (WRVU 10.83) Scheduled [...] on filedocumented in this encounter Care Teams Gasoline Tester Relationship Specialty Start Date End Date Tiny Walters APRN [address] [place] [phone] PCP - General Family Medicine 12/01/19 04/07/24 documented as of this encounter
--- OUTSIDE RECORDS SUMMARY | 2024-05-31 01:24 | XMS_ITS | Encounter Summary ---
Author Organization [facility] Address [facility] [place] [address] Care Team Providers Care Lithographic Platemaker Name Role Phone Tiny Walters APRN Primary Care Provider +1- [phone] Encounter Details Date Type Department Care Team (Late st Contact Info) Description 05/10/2020 2:00 PM EST Office Visit Radiation Oncology at [address] [phone] Jose Martin Rae MD [facility] [place] [address] Tonsil cancer Social History Tobacco Use Types [...] Sign Reading Time Taken Comments Blood Pressure 115/71 05/10/2020 1:27 PM EST Pulse 78 05/10/2020 1:27 PM EST Temperature 36.7 ??C (98.1 ??F) 05/10/2020 1:27 PM ES T Respiratory Rate 18 05/10/2020 1:27 PM EST Oxygen Saturation 100% 05/10/2020 1:27 PM EST Inhaled Oxygen Concentration - - Weight 73.7 kg (162 lb 6.4 oz) 05/10/2020 1:27 P M EST Height - - Body Mass Index 25.34 05/01/2020 11:10 AM EST documented in this encounter Progress Notes * Jose Martin Rae MD - 05/10/2020 2:00 PM EST FOLLOW UP VISIT NOTE Zen Pickering is a 39 y.o. 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 Definitive chemoradiotherapy completed last week. Changes in medical condition Pain: Stable odynophagia, 2-3/10, worse with dryness / swallowing; no longer using oxycodone, only gabpapentin Secretions/Dryness: severe dysgeusia; significant xerostomia / thick secretions. Stable to slightlyimproved. Using BSSW, Mucinex (decreased), suction Nutrition: able to tolerate minimal liquids, gagging limits intake of solids G tube: tolerating tube feeds; 5x/day Swallowing Function: sips of water Skin: no skin issues GI: -N/V: no nausea -Bowels: no issues on Miralax Nutrition Assessment: Weight : 80.1 kg initial Change: 73.5 kg => 73.7 kg Objective: Vitals: 05/10/20 1327 BP: 115/71 Patient Position: Sitting Pulse: 78 Resp: 18 Temp: 36.7 ??C (98.1 ??F) TempSrc: Temporal SpO2: 100% Weight: 73.7 kg (162 lb 6.4 oz) SKIN: no skin erythema MUCOSA: patchy mucositis posterior oropharynx and oral cavity. Assessment: Improving level toxicity with severe dysgeusia, xerostomia/thick secretions, and stable weight. Stable, tolerating symptoms. CTCAE TOXICITY GRADES (see below for corrales): Site Grade Skin 0 Xerostomia 3 Pharyngeal Mucositis 3 Dysphagia 2 Hoarseness 0 Plan: ?? Pain control: ?? OTC medications ?? BMX prn ?? Neurontin ?? Skin: MG cream prn ?? Mucositis: ?? Pain control: see above ?? Oral hygiene consisting of baking soda/salt rinse at least 8 times daily ?? Mucinex prn for thick secretions ?? Suction ?? Alimentation: commercial singer following ?? Weight stable, all nutrition via G tube due to secretions FU: I will see him in two weeks CTCAE v4.03 scales for reference Skin 0 1 2 3 4 No change from baseline Faint erythema or dry desquamation Moderate to brisk erythema; patchy moistdesquamation mostly confined to skin folds & creases; moderate edema Moist desquamation in areas other than skin folds and creases; bleeding induced by minor trauma or abrasion Life threatening consequences; skin necrosis or ulceration of full thickness dermis; spontaneous bleeding; skin graft indicated Xerostomia 0 1 2 3 4 No change from baseline Symptomatic (dry or thick saliva) without significant dietary alteration Moderate sx: oral intake alterations (e.g. copious water, diet limited to purees or soft, moist foods)Inability to adequately aliment orally, TPN or PEG indicated NA Pharyngeal Mucositis: 0 1 2 3 4 No change from baseline Asymptomatic or mild symptoms; normal oral intake; mild pain but analgesia not indicated Moderate pain and analgesics indicated; altered oral intake; limiting instrumental ADLs Severe pain, unable to adequately aliment or hydrate orally; limiting self care ADLs Life threatening consequences; urgent intervention indicated Dysphagia 0 1 2 3 4 No change from baseline Symptomatic, able to eat regular diet Symptomatic and altered eating/swallowing Severely altered eating/swallowing; tube feeds, TPN or hospitalization indicated Life threatening consequences; urgent intervention indicated Hoarseness 0 1 2 3 4 No change from baseline Mild or intermittent voice change; fully understandable, self-resolves Moderate or persistent voice change; may require occasional repetition but understandable on telephone Severe voice change including predominantly whispered speech NA documented in this encounter Plan of Treatment Upcoming Encounters Date Type Department Care Team (Late st Contact Info) Description 05/31/2024 11:30 AM EST Office Visit Hematology/Oncolog y at [address] [phone] Tej Tipton MD [address] [facility] HEMATOLOGY & [place] [address] Stacy Valle APRN [facility] [place] [address] 06/01/2024 10:30 AM EST Scheduled View [place] [address] 06/01/2024 11:00 AM EST Office Visit [place] [address] Luis E Chin MD [facility] [place] [address] 06/04/2024 8:30 AM EST Hospital Encounter [place] [address] Rayshawn Suresh MD [facility] [place] [address] 06/04/2024 8:30 AM EST - 06/04/2024 1:05 PM EST Surgery [place] [address] Rayshawn Suresh MD [facility] [place] [address] @THORACOSCOPY, SURG; W PLEURODESIS (WRVU 10.83) Scheduled [...] tonsil documented in this encounter Care Teams Lithographic Platemaker Relationship Specialty Start Date End Date Tiny Walters APRN [address] [place] [phone] PCP - General Family Medicine 12/01/19 04/07/24 documented as of this encounter
--- OUTSIDE RECORDS SUMMARY | 2024-05-31 01:24 | XMS_ITS | Encounter Summary ---
Author Organization [facility] Address [facility] [place] [address] Care Team Providers Care Planning Management It Specialist Name Role Phone Tiny Walters APRN Primary Care Provider +1- [phone] Encounter Details Date Type Department Care Team (Late st Contact Info) Description 06/07/2020 11:30 AM EST TH Visit (TeleHealth) Hematology/Oncology at [address] [phone] Carrie Jacob, LEATHER DRIER Social History Tobacco Use Types Packs/Day Years [...] * Treatment - Therapy - Carrie Jacob, LEATHER DRIER - 06/07/2020 11:30 AM ESTSummary: LEATHER DRIER Phone Encounter Speech Language Pathology Telephone Encounter Patient Profile: Zen Pickering is a 39-year-old man with 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 Interval History: Reports consistent odynophagia depending on temperature of po intake, less tolerant of colder foods, is able to tolerate room temperature and/or warmer soups, has tried buttered bread in past 2 weeks (more difficulties with this) and has benefited from lidocaine prior to eating, reports lessened gag hypersensitivity however states that his willingness to take po by mouth has lessened over past few days due to thick secretions/phlegm; contines with BSSR; able to tolerate small sips of water about 20-30x/day; reports question re: neurontin and side effects of medication as he has been feeling off lately; LEATHER DRIER to contact RN to reach out to patient to discuss current medication management/educaton. Denies nausea; continues to tolerate tube feeds; ~4x/day HPI: Patient Active Problem List Diagnosis Code [...] 180 lbs 02/11/20: 179 lbs Subjective: Patient contacted via telephone today for follow up re: ARK-J program and to address any questions for upcoming VFSS/MBSS at [facility]. Patient states he is able to tolerate soft foods (IDDSI Levels 4/5); reports reduction in overall pain relative to previous week but less appetite given increase in thick phlegm. Objective: Pain: 2-3/10, mostly right posterior tongue, less consistent odynophagia but still occasionally present; pain at 5/10 with use of ARK J Level 3 device, aware of instruction to stop use of device if pain increases beyond 5/10 until LEATHER DRIER follow up session on 06/14. Respiratory Status: [...] Direct Trismus Treatment / Training: Initial REYNA: DNT Tissue Manipulation: Completed Stretch/Massage routine daily as instructed [Passive exercise with modified ARK-J Level 3 Device at home] Hold 30 secs / 6 reps, 3 sets 4x/day Reported pain at 5 / 10, dissipates to 3-4/10 with holds, repetitions Active jaw ROM exercise: able to tolerate for 4+ minutes; emphasis on over- exaggerated rotary chew movement(s) Ending REYNA: DNT Assessment: Pt is appropriate for continued direct trismus treatment/education for continued management in 1 week; Patient is currently using modified ARK-J level 3 device; overall he is tolerating ARK-J program well with significant benefit. Discussed continued prophylactic swallowing exercise as tolerated, increasing to more viscous consistencies, soft solids as tolerated, and patient is in agreement. VFSS/MBSS to take place at [facility], 06/12 at 10:45am. Patient demonstrated comprehension with all recommendations regarding [...] thin liquids, effortful saliva swallow between sips Speech Therapy Goals: Pt/carepartner will be independent with aspiration precautions, diet texture modifications, and safe/efficient swallowing strategies as outlined. Pt will demonstrate effortful swallow technique with good execution to reduce muscle atrophy/as prophylactic swallowing exercise during chemo/RT. (Goal Met) Pt will demonstrate comprehension of trismus management techniques during course of cancer treatment and trismus HEP once treatment has been completed, as appropriate. Pt will tolerate least restrictive diet textures/consistencies without overt evidence of dysphagia/aspiration. Pt will maintain hydration/nutrition with optimal safety and efficiency. Pt will increase MDADI global score to 4, maintain composite score above 80 given participation in HEP as outlined. Further treatment goals to be determined pending results of Videofluoroscopic Swallow Study/Modified Barium Swallow Study [VFSS/MBSS] and/or Flexible/Fiberoptic Endoscopic Evaluation of Swallowing [FEES] as deemed necessary. Plan: Subsequent session scheduled 1 week from today to review results from VFSS/MBSS once available; intervention for direct treatment planning/implementation, review of additional strategies to aid in swallowing/speech abilities and support quality of life. LEATHER DRIER to confirm scheduling/results for VFSS/MBSS and coordinate with [facility] LEATHER DRIER(s) as needed. Please feel free to contact me with any questions or concerns regarding Mr. Pickering's care. Carrie Jacob MA [facility]-LEATHER DRIER Speech-Language Pathologist [email or web address] documented in this encounter Plan of Treatment Upcoming Encounters Date Type Department Care Team (Late st Contact Info) Description 05/31/2024 11:30 AM EST Office Visit Hematology/Oncolog y at [address] [phone] Tej Tipton MD [facility] [place] [address] Stacy Valle APRN [facility] [place] [address] 06/01/2024 10:30 AM EST Scheduled View [place] [phone] 06/01/2024 11:00 AM EST Office [place] [phone] Luis E Chin MD [facility] [place] [address] 06/04/2024 8:30 AM EST Hospital Encounter [place] [address] Rayshawn Suresh MD [facility] [place] [address] 06/04/2024 8:30 AM EST - 06/04/2024 1:05 PM EST Surgery [place] [address] Rayshawn Suresh MD [facility] [place] [address] @THORACOSCOPY, SURG; W PLEURODESIS (WRVU 10.83) Scheduled [...] on filedocumented in this encounter Care Teams Planning Management It Specialist Relationship Specialty Start Date End Date Tiny Walters APRN [address] [place] [phone] PCP - General Family Medicine 12/01/19 04/07/24 documented as of this encounter
--- OUTSIDE RECORDS SUMMARY | 2024-05-31 01:24 | XMS_ITS | Encounter Summary ---
Author Organization [facility] Address [facility] [place] [address] Care Team Providers Care Manager Drive Name Role Phone Tiny Walters APRN Primary Care Provider +1- [phone] Encounter Details Date Type Department Care Team (Latest Contact Info) Description 05/31/2020 8:30 AM EST TH Visit (TeleHealth) Hematology/Oncology at [address] [phone] Carrie Jacob, SALAS Tonsil cancer; Dysphagia, oropharyngeal phase Social History [...] - Therapy - Carrie Jacob SLP - 05/31/2020 8:30 AM ESTSummary: HEALTH CARE ANALYST treatment note Speech Language Pathology Dysphagia Treatment Note Patient Profile: Zen Sousabensonconstance is a 39-year-old man with 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 Interval History: Reports consistent odynophagia depending on temperature of po intake, less tolerant of colder foods, is able to tolerate room temperature and/or warmer soups, has tried buttered bread (more difficulties with this) and has benefited from lidocaine prior to eating, reports continually lessened gag hypersensitivity, contines with BSSR and increased sense of taste; able to tolerate small sips of water about 20-30x/day (increase); currently on pain medication approx 2x/day (decrease) for mucositis pain management; denies nausea; continues with difficulties with oral secretion management - thick, copious secretions, although gum has helped with this; continues to tolerate tube feeds; ~4x/day HPI: [...] 180 lbs 02/11/20: 179 lbs Subjective: Patient with improved affect, less overall fatigue but continues to verbalize frustration with copious thick secretions, need to expel mucous and/or use suction throughout the day but is beginning to tolerate soft foods (IDDSI Levels 4/5); reports reduction in overall pain relative to previous week, states plan to move forward with VFSS/MBSS which has been scheduled through [facility] Objective: Pain: 2-3/10, mostly right posterior tongue, less consistent odynophagia but still occasionally present Respiratory Status: Room air Current Diet: Level 0 Thin liquids, some mixed consistencies (soup w soft noodles) Feeding / Oral Care Status: Pt is independent Using BSSR, is using biotene toothpaste Oral / Laryngeal Mechanism Clinical Assessment: Reduced swelling on right side of jaw, relative to left side, otherwise no associated pain or additional changes relative to previous visit Trismus: REYNA: ?? Previous measurements 02/22/21 at 31.75 mm 05/10/20 at 25.4 mm 05/17/20 at 27 mm 05/24/20 at 30 mm 05/29/20 at 33 mm Trismus Severity - Mild (Jesus et al, 2006) Direct Trismus Treatment / Training: Initial REYNA: 33 mm Tissue Manipulation: Completed Stretch/Massage routine [Passive exercise with ARK-J Level 2 Device at home, modified Level 3 device today] Hold 30 secs / 6 reps, 3 sets 4x/day Reported pain at 4 / 10, dissipates to 1-2/10 with holds, repetitions Active jaw ROM exercise: able to tolerate for 4+ minutes; emphasis on over- exaggerated rotary chew movement(s) Ending REYNA: 36 mm Assessment: Pt assessed in office for continued motivational interview and direct trismus treatment/education for continued management; education provided re: progressivation of ARK-J program with use of modified level 3 device and use of gum for active ROM exercises, monitoring of pain levels and/or changes in oral sensation/healing. Patient provided with ARK-J level 4 base(s) if current device is deemed not challenging enough over next 2 weeks; will plan to contact patient via phone in 1 weekfor check-in; overall he is tolerating ARK-J program well with significant benefit. Discussed continued prophylactic swallowing exercise as tolerated, increasing to more viscous consistencies, soft solids as tolerated, and patient is in agreement. VFSS/MBSS to take place at [facility], 06/12 at 10:45am. Patient demonstrated comprehension with [...] [FEES] as deemed necessary. Plan: Subsequent session to be scheduled in 2 weeks; earlier if symptoms become worse. HEALTH CARE ANALYST to follow up via phone in 1 week to address trismus management and education; subsequent session to review resultsfrom VFSS/MBSS once available; intervention for direct treatment planning/implementation, review ofadditional strategies to aid in swallowing/speech abilities and support quality of life. HEALTH CARE ANALYST to confirm scheduling for VFSS/MBSS and coordinate with [facility] HEALTH CARE ANALYST(s) as needed. Please feel free to contact me with any questions or concerns regarding Mr. Pickering's care. Carrie Jacob MA [facility]-HEALTH CARE ANALYST Speech-Language Pathologist [email or web address] documented in this encounter Plan of Treatment Upcoming Encounters Date Type Department Care Team (Late st Contact Info) Description 05/31/2024 11:30 AM EST Office Visit Hematology/Oncolog y at [address] [phone] Tej Tipton MD [address] [facility] HEMATOLOGY & [place] [address] Stacy Valle APRN [facility] [place] [address] 06/01/2024 10:30 AM EST Scheduled View [place] [address] 06/01/2024 11:00 AM EST Office [place] [address] Luis E Chin MD [facility] [place] [address] 06/04/2024 8:30 AM EST Hospital Encounter [place] [phone] Rayshawn Suresh MD [facility] [place] [address] 06/04/2024 8:30 AM EST - 06/04/2024 1:05 PM EST Surgery [place] [address] Rayshawn Suresh MD [facility] [place] [address] @THORACOSCOPY, SURG; W PLEURODESIS (WRVU 10.83) Scheduled [...] phase documented in this encounter Care Teams Manager Drive Relationship Specialty Start Date End Date Tiny Walters APRN [address] [place] [phone] PCP - General Family Medicine 12/01/19 04/07/24 documented as of this encounter
--- OUTSIDE RECORDS SUMMARY | 2024-05-31 01:24 | XMS_ITS | Encounter Summary ---
Author Organization [facility] Address [facility] [place] [address] Care Team Providers Care Straight Truck Driver Name Role Phone Tiny Walters APRN Primary Care Provider +1- [phone] Encounter Details Date Type Department Care Team (Late st Contact Info) Description 05/01/2020 12:30 PM EST Office Visit Hematology/Oncology at [address] [phone] Tonsil cancer [...] Progress Notes * Tonya Machado RD - 05/01/2020 12:[address] 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 Patient is receiving concurrent chemo/RT. Final RT on 04/18. HPI: [...] Labs: NNL Estimated body mass index is 25.06 kg/m?? as calculated from the following: Height as of an earlier encounter on 05/01/20: 170.5 cm (5' 7.13). Weight as of an earlier encounter on 05/01/20: 72.8 kg (160 lb 9.6 oz). Wt Readings from Last 3 Encounters: 05/01/20 72.8 kg (160 lb 9.6 oz) 04/26/20 73.5 kg (162 lb) 04/24/20 72.8 kg (160 lb 6.4 oz) Previous weights: 03/16/20: 170 lbs 02/16/20: 180 lbs 02/11/20: 179 lbs Wt Hx: UBW: % UBW: IBW: +/- 10% % IBW: ___ Edema ___ Ascites ___Muscle wasting Calories: 5484-8643 (30-35 kcal/kg) Protein: 120 grams (1.5 g/kg) Fluid: 2.5 L Nutrition Assessment: Enteral Nutrition: G-tube placed 02/10 by IR - 16 Camb[place]ian balloon retained g-tube Trial of [employer] 1.5 last week with improved tolerance to increasing volume. Reports using 4-5 cartons per day of this formula. Each carton provides 500 calories and 24 grams protein. Goal of 5 cartons per day to provide 2500 calories and 120 grams protein. If using Nutren 1.5 formula, goal of 6-7 cartons per day for 7398-7786 calories and 102-119 grams protein. Food Intake: minimal oral intake at this time. Teas, vitamins, or other nutritional supplements: n/a Food allergies or avoidances: denies Appetite: fair Nausea: occasional Vomiting: n/a Chewing: denies difficulty Dentition: wisdom teeth removed recently Swallowing: difficulty; increased phlegm Taste Changes: +bland Bowels: no issues Food availability/purchasing, meal planning and preparation: Social Support: ; 3 children at home Physical Activity: Anticipated adherence/understanding: good Nutrition Diagnosis: New g-tube placement in anticipation of starting treatment for recently diagnosed HN cancer. Met with Janett to provide additional formula for patient while he was receiving hydration today. Patient continues to use g-tube for 100% of his nutrition. He did try a piece of meat recently, but had no taste. She states he is beginning to have more of a desire to eat, however. Weight is stable this week. He is using [employer] and Nutren 1.5 formula. Nutrition Intervention: ? Increase caloric needs ? Modify diet consistency: as tolaterated ? Enteral Nutrition: Continue tube feeds; still using mix of [employer] and Nutren 1.5 - toleratingboth relatively well ? Provided additional donated formula/supplies (unopened, unexpired) Monitoring and Evaluation: Will follow up in 1-2 weeks. documented in this encounter Plan of Treatment Upcoming Encounters Date Type Department Care Team (Late st Contact Info) Description 05/31/2024 11:30 AM EST Office Visit Hematology/Oncolog y at [address] [phone] Tej Tipton MD [address] [facility] [address] HEMATOLOGY & [place] [address] Stacy Valle APRN [facility] [place] [address] 06/01/2024 10:30 AM EST Scheduled View [place] [address] 06/01/2024 11:00 AM EST Office [place] [phone] Luis E Chin MD [facility] [place] [address] 06/04/2024 8:30 AM EST Hospital Encounter [place] [address] Rayshawn Suresh MD [facility] [place] [address] 06/04/2024 8:30 AM EST - 06/04/2024 1:05 PM EST Surgery Main Operating Room [facility] [place] [address] Rayshawn Suresh MD [facility] [place] [address] @THORACOSCOPY, SURG; W PLEURODESIS (WRVU 10.83) Scheduled [...] tonsil documented in this encounter Care Teams Straight Truck Driver Relationship Specialty Start Date End Date Tiny Walters APRN [address] [place] [phone] PCP - General Family Medicine 12/01/19 04/07/24 documented as of this encounter
--- OUTSIDE RECORDS SUMMARY | 2024-05-31 01:24 | XMS_ITS | Encounter Summary ---
Author Organization [facility] Address [facility] [address] Care Team Providers Care Distributing Clerk Name Role Phone Tiny Walters APRN Primary Care Provider +1- [phone] Encounter Details Date Type Department Care Team (Late st Contact Info) Description 06/19/2020 Telephone Radiation Oncology at [address] [phone] Janeen Duarte RN Social History [...] Telephone Encounter - Janeen Duarte RN - 06/19/2020 4:27 PM EST Patient reports that he has been feeling annoying, weird pain in shoulders, chest and back since last or Friday. It does not extend to neck or other part of body. Skin is sore to touch which transfers to muscles and causes goose bumps. The muscle soreness is not like if you exercise and become sore but more of a strange sensation. He rates this sensation at level 5-6/10 though it does not keep him awake at night. Is not noticeably bothered by clothing rubbing, weight of blankets or water in shower. Denies any difficulty breathing though taking a deep breath does exacerbate the soreness. Denies changes in any extremities. Has not tried any analgesics or anything else to try to help. I let him know that I will update both Dr. Rae and Dr. Christy regarding his symptoms and will call back with any thoughts/recommendations. He is agreeable to this plan. documented in this encounter Plan of Treatment Upcoming Encounters Date Type Department Care Team (Late st Contact Info) Description 05/31/2024 11:30 AM EST Office Visit Hematology/Oncolog y at [address] [phone] Tej Tipton MD [address] [facility] HEMATOLOGY & [place] [address] Stacy Valle APRN [facility] [place] [address] 06/01/2024 10:30 AM EST Scheduled View [place] [address] 06/01/2024 11:00 AM EST Office [place] [phone] Luis E Chin MD [facility] [place] [address] 06/04/2024 8:30 AM EST Hospital Encounter [place] [address] Rayshawn Suresh MD [facility] [place] [address] 06/04/2024 8:30 AM EST - 06/04/2024 1:05 PM EST Surgery [place] [phone] Rayshawn Suresh MD [facility] [place] [address] @THORACOSCOPY, SURG; W PLEURODESIS (WRVU 10.83) Scheduled [...] on filedocumented in this encounter Care Teams Distributing Clerk Relationship Specialty Start Date End Date Tiny Walters APRN [address] [place] [phone] PCP - General Family Medicine 12/01/19 04/07/24 documented as of this encounter
--- OUTSIDE RECORDS SUMMARY | 2024-05-31 01:24 | XMS_ITS | Encounter Summary ---
Author Organization [facility] [place] [address] Care Team Providers Care Gray Tender Name Role Phone [place]o Tiny Lindsay APRN Primary Care Provider +1- [phone] Reason for Visit * Reason Comments Other Mediport flush Encounter Details Date Type Department Care Team (Late Contact Info) Description 05/29/2020 11:30 AM EST Infusion Hematology Oncology at [address] [phone] Tonsil cancer Social History Tobacco [...] as of this encounter Progress Notes * Tequila Hyde RN - 05/29/2020 11:30 AM EST INFUSION THERAPY ADMINISTRATION NOTES DIAGNOSIS: 1. Tonsil cancer REASON FOR VISIT: MEDIPORT FLUSH [...] EST Office Visit Hematology/Oncolog y at [address] [address] Tej Tipton MD [address] [facility] [place] [address] Stacy Valle APRN [facility] [place] [address] 06/01/2024 10:30 AM EST Scheduled View Only [place] [phone] 06/01/2024 11:00 AM EST Office Visit [place] [phone] Luis E Chin MD [facility] [place] [address] 06/04/2024 8:30 AM EST Hospital Encounter [place] [address] Rayshawn Suresh MD [facility] [place] [address] 06/04/2024 8:30 AM EST - 06/04/2024 1:05 PM EST Surgery [place] [address] Rayshawn Suresh MD [facility] [place] [address] @THORACOSCOPY, SURG; W PLEURODESIS (WRVU 10.83) Scheduled [...] tonsil documented in this encounter Care Teams Gray Tender Relationship Specialty Start Date End Date Tiny Walters APRN [address] [place] [phone] PCP - General Family Medicine 12/01/19 04/07/24 documented as of this encounter
--- OUTSIDE RECORDS SUMMARY | 2024-05-31 01:24 | XMS_ITS | Encounter Summary ---
Author Organization [facility] Address [facility] [place] [address] Care Team Providers Care Shop Repairer Name Role Phone Tiny Walters APRN Primary Care Provider +1- [phone] Encounter Details Date Type Department Care Team (Late st Contact Info) Description 05/24/2020 2:00 PM EST Office Visit Radiation Oncology at [address] [phone] Jose Martin Rae MD [facility] [place] [address] Tonsil cancer Social History Tobacco Use Types [...] Sign Reading Time Taken Comments Blood Pressure 111/79 05/24/2020 2:04 PM EST Pulse 82 05/24/2020 2:04 PM EST Temperature 36.7 ??C (98.1 ??F) 05/24/2020 2 :04 PM EST Respiratory Rate 18 05/24/2020 2:04 PM EST Oxygen Saturation 100% 05/24/2020 2:0 4 PM EST Inhaled Oxygen Concentration - - Weight 73.8 kg (162 lb 12.8 oz) 021 2:04 PM EST with shoes Height - - Body Mass Index 25.4 05/01/2020 11:10 AM EST documented in this encounter Progress Notes * Jose Martin Rae MD - 05/24/2020 2:00 PM EST FOLLOW UP VISIT NOTE Zen Pickering is a 39 y.o. 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 Definitive chemoradiotherapy completed 04/19/20 Changes in medical condition Pain: Improved odynophagia, right tongue very bothersome, 1-5/10; worse with certain foods. Some posterior oropharyngeal pain with certain foods. Secretions/Dryness: Thick secretion slightly improved, using suction. Using BSSW. Not using guaifenesin. Very dry. Gagging resolved. Nutrition: Soups, liquids. Soft solids. G tube: tolerating tube feeds; 6x/day Skin: itching, GI: -N/V: no nausea -Bowels: no issues on Miralax Nutrition Assessment: Weight : 80.1 kg initial Change: 73.7 kg => 73.8 kg Objective: Vitals: 05/24/20 1404 BP: 111/79 Patient Position: Sitting Pulse: 82 Resp: 18 Temp: 36.7 ??C (98.1 ??F) TempSrc: Temporal SpO2: 100% Weight: 73.8 kg (162 lb 12.8 oz) SKIN: no skin erythema MUCOSA: Improved mucositis overall, but persistent ulceration / mucositis right tonsillar fossa, aswell as right lateral oral tongue mucositis. No thrush. Assessment: Improving toxicity with continued dysgeusia, xerostomia/thick secretions, and stable weight. He hasan area of significant mucositis with possible ulceration in the right tonsillar fossa at the site of the primary, but improved. We will continue to observe closely. CTCAE TOXICITY GRADES (see below for corrales): Site Grade Skin 0 Xerostomia 3 Pharyngeal Mucositis 3 Dysphagia 2 Hoarseness 0 Plan: ?? Pain control: ?? OTC medications ?? BMX prn => Add topical lidocaine ?? Neurontin ?? Skin: MG cream prn ?? Mucositis: ?? Pain control: see above ?? Oral hygiene consisting of baking soda/salt rinse at least 8 times daily ?? Mucinex prn for thick secretions ?? Suction ?? Alimentation: locomotive operator helper following ?? Weight stable, most nutrition via G tube ?? Working with SCRAPER BURRER ?? FU: I will see him in two [...] EST Office Visit Hematology/Oncolog y at [address] [phone] Tej Tipton MD [address] [facility] HEMATOLOGY & ONCOLOGY [place], [place] [phone] Stacy Valle, BATSHEVA [facility] [place] [address] 06/01/2024 10:30 AM EST Scheduled View Only Radiation Oncology at [place] [phone] 06/01/2024 11:00 AM EST Office Visit [place] [phone] Luis E Chin MD [facility] [place] [address] 06/04/2024 8:30 AM EST Hospital Encounter [place] [phone] Rayshawn Suresh MD [facility] [place] [address] 06/04/2024 8:30 AM EST - 06/04/2024 1:05 PM EST Surgery [place] [phone] Rayshawn Suresh MD [facility] [place] [address] @THORACOSCOPY, SURG; W PLEURODESIS (WRVU 10.83) Scheduled [...] tonsil documented in this encounter Care Teams Shop Repairer Relationship Specialty Start Date End Date Tiny Walters APRN [address] [place] [phone] PCP - General Family Medicine 12/01/19 04/07/24 documented as of this encounter
--- OUTSIDE RECORDS SUMMARY | 2024-05-31 01:24 | XMS_ITS | Encounter Summary ---
Author Organization [facility] Address [facility] [place] [address] Care Team Providers Care Box Strapper Name Role Phone Tiny Walters APRN Primary Care Provider +1- [phone] Encounter Details Date Type Department Care Team (Late st Contact Info) Description 05/29/2020 10:30 AM EST Office Visit Hematology/Oncology at [address] [phone] Tonsil cancer Social History [...] Progress Notes * Tonya Machado RD - 05/29/2020 10:30 AM EST [facility] Dietitian Follow Up Seen By: Tonya Machado [...] ___ Edema ___ Ascites ___Muscle wasting Calories: 6560-5187 (30-35 kcal/kg) Protein: 120 grams (1.5 g/kg) Fluid: 2.5 L Nutrition Assessment: Enteral Nutrition: G-tube placed 02/10 by IR - 16 Vietnamese balloon retained g-tube Nutren 1.5 formula, goal of 6-7 cartons per day for 7320-9074 calories and 102- 119 grams protein. Patient reports he has continued to use 6 cartons per day, gravity method using 1.5 cartons per feeding. Food Intake: beginning to tolerate some soft foods and liquids. Yogurt and soups, but best at room temperature. Teas, vitamins, or other nutritional supplements: n/a Food allergies or avoidances: denies Appetite: fair, hunger cues present, but less desire to eat Nausea: improved Vomiting: denies Chewing: trismus Dentition: no issues Swallowing: difficulty; increased phlegm Taste Changes: +bland; sore spot on tongue - sensitive to acidic foods Bowels: denies issues Food availability/purchasing, meal planning and preparation: Social Support: ; 3 children at home Physical Activity: Anticipated adherence/understanding: good Nutrition Diagnosis: New g-tube placement in anticipation of starting treatment for recently diagnosed HN cancer. Nutrition Intervention: ? Modify diet consistency: as tolerated, working closely with RETURNED GOODS REPAIRER ? Enteral Nutrition: Continue tube feedings using Nutren 1.5 and/or Osmolite 1.5 ? Provided additional donated formula/supplies (unopened, unexpired) ? Discussed using oral nutrition supplements, such as Ensure, as tolerated to assist with transition to oral diet Monitoring and Evaluation: Will follow up upon RTC. documented in this encounter Plan of Treatment Upcoming Encounters Date Type Department Care Team (Late st Contact Info) Description 05/31/2024 11:30 AM EST Office Visit Hematology/Oncolog y at [address] [phone] Tej Tipton MD [address] [facility] DR HEMATOLOGY & [place] [address] Stacy Valle APRN [facility] [place] [address] 06/01/2024 10:30 AM EST Scheduled View Only [place] [address] 06/01/2024 11:00 AM EST Office Visit [place] [address] Luis E Chin MD [facility] [place] [address] 06/04/2024 8:30 AM EST Hospital Encounter [place] [address] Rayshawn Suresh MD [facility] [place] [address] 06/04/2024 8:30 AM EST - 06/04/2024 1:05 PM EST [place] [address] Rayshawn Suresh MD [facility] [place] [address] @THORACOSCOPY, SURG; W PLEURODESIS (WRVU 10.83) Scheduled [...] tonsil documented in this encounter Care Teams Box Strapper Relationship Specialty Start Date End Date Tiny Walters APRN [address] [place] [phone] PCP - General Family Medicine 12/01/19 04/07/24 documented as of this encounter
--- OUTSIDE RECORDS SUMMARY | 2024-05-31 01:24 | XMS_ITS | Encounter Summary ---
Author Organization [facility] Address [facility] [place] [address] Care Team Providers Care Nurse Staff Industrial Name Role Phone Tiny Walters APRN Primary Care Provider +1- [phone] Encounter Details Date Type Department Care Team (Latest Contact Info) Description 05/24/2020 12:00 PM EST Office Visit Hematology/Oncology at [address] [phone] Carrie Jacob, EDITOR SOUND Dysphagia, oropharyngeal phase; Tonsil cancer; Aspiration pneumonia of right lower lobe, unspecified aspiration pneumonia type Social History Tobacco Use Types Packs/Day [...] * Treatment - Therapy - Carrie Jacob, EDITOR SOUND - 05/24/2020 12:00 PM ESTSummary: EDITOR SOUND Treatment Note Speech Language Pathology Dysphagia Treatment Note Patient Profile: Zen Sousabensonconstance is a 39-year-old man with 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 Interval History: Reports occasional odynophagia depending on temperature, less tolerant of colder foods such as cold pudding, ice cream, is able to tolerate warmer soups with small noodles, without meat (pain with swallowing is no longer near esophagus, still on back right of tongue, describes as 'stinging' with colder foods or more acidic flavors and when rubbing against teeth), reports continually lessened gag hypersensitivity, contines with BSSR and increased sense of taste;able to toleratesmall sips of water about 10-20x/day (increase); currently on pain medication every 4 hours for mucositis pain management; denies nausea; continues with significant difficulties with oral secretion management - thick, copious secretions; continues to tolerate tube feeds; ~4x/day HPI: Patient Active Problem List Diagnosis Code ??? 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 Raynaud's syndrome I73.00 ??? Gastrostomy tube in place Z93.1 RD visit 05/01/20: Meds: reviewed Labs: NNL Estimated body mass [...] but continues to verbalize frustration with copious thcik secretions, need to expel mucous and/or use suction throughout the day; reports reduction in overall pain relative to previous week, states VFSS/MBSS has been scheduled through [facility] Objective: Pain: 2-3/10, mostly right posterior tongue, less consistent odynophagia but still occasionally present Respiratory Status: Room air Current Diet: Level 0 Thin liquids, some mixed consistencies (soup w soft noodles) Feeding / Oral Care Status: Pt is independent Using BSSR, is using biotene toothpaste Oral / Laryngeal Mechanism Clinical Assessment: States has noticed some swelling on right side of jaw, relative to left side, otherwise no associated pain or additional changes relative to previous visit Trismus: REYNA: ?? Previous measurements 02/22/21 at 31.75 mm 05/10/20 at 25.4 mm 05/17/20 at 27 mm 05/24/20 at 30 mm Trismus Severity - Mild (Jesus et al, 2006) Direct Trismus Treatment / Training: Initial REYNA: 27 mm Tissue Manipulation: Completed Stretch/Massage routine [Passive exercise with ARK-J Level 2 Device at home] Hold 30 secs / 5-6 reps, 3 sets 3-4x/day Reported pain at 3-4 / 10, dissipates to 2-3/10 with holds, repetitions Active jaw ROM exercise: introduced today, able to tolerate for 4+ minutes; provided instructions to trial with alternative flavors at home during next week (ie bubblegum vs mint) and with emphasis on over-exaggerated rotary chew movement(s) Ending REYNA: 32.5 mm Assessment: Pt assessed in office for continued motivational interview today; education provided re: progressivation of ARK-J program with use of level 2 device and use of gum for active ROM exercises, monitoring of pain levels and/or changes in oral sensation/healing. Discussed continued prophylactic swallowing exercise as tolerated, increasing to more viscous consistencies, and patient is in agreement. VFSS/MBSS to take place at [facility], 06/12 at 10:45am per patient report today. Patient demonstrated comprehension with all recommendations regarding his treatment plan to adhere to aspiration precautions and swallowing exercise. Patient continues to be appropriate candidate forSLP intervention given continued motivation and support from spouse. Pt will benefit from continued therapeutic interventions to achieve therapy goals. Diagnosis: right tonsil squamous cell carcinoma, oropharyngeal dysphagia Recommendations: Diet: Continue IDDSI Level 0 thin liquids as tolerated, Level 4 Pureed solids as tolerated PO medications: via g tube as directed by MD / Pharmacist Risk Management: For po intake when tolerated - Upright position during meals and for at least 30 mins following Sensory enhancement (flavor, texture, temperature): Reduced rate/volume of thin liquids, effortful saliva swallow between sips Recommend subsequent session to be scheduled in 1 week; earlier (through [facility]) if symptoms become worse. Speech Therapy Goals: Pt/carepartner will be independent [...] [FEES] as deemed necessary. Plan: Subsequent session in 1 week to address trismus management and education; review results from VFSS/MBSS once available; intervention for direct treatment planning/implementation, review of additionalstrategies to aid in swallowing/speech abilities and support quality of life. EDITOR SOUND to confirm scheduling for VFSS/MBSS and coordinate with [facility] EDITOR SOUND(s) as needed. Please feel free to contact me with any questions or concerns regarding Mr. Pickering's care. Carrie Jacob MA CCC-EDITOR SOUND Speech-Language Pathologist [email or web address] documented in this encounter Plan of Treatment Upcoming Encounters Date Type Department Care Team (Late st Contact Info) Description 05/31/2024 11:30 AM EST Office Visit Hematology/Oncolog y at [address] [phone] Tej Tipton MD [address] [facility] [address] HEMATOLOGY & [place] [address] Stacy Valle [address]N [facility] [place] [address] 06/01/2024 10:30 AM EST Scheduled View [place] [address] 06/01/2024 11:00 AM EST Office [place] [phone] Luis E Chin MD [facility] [place] [address] 06/04/2024 8:30 AM EST Hospital Encounter [place] [phone] Rayshawn Suresh MD [facility] [place] [address] 06/04/2024 8:30 AM EST - 06/04/2024 1:05 PM EST Surgery [place] [phone] Rayshawn Suresh MD [facility] [place] [address] @THORACOSCOPY, SURG; W PLEURODESIS (WRVU 10.83) Scheduled [...] phase Tonsil cancer Malignant neoplasm of tonsil Aspiration pneumonia of right lower lobe, unspecified aspiration pneumonia type documented in this encounter Care Teams Nurse Staff Industrial Relationship Specialty Start Date End Date Tiny Walters APRN [address] [place] [phone] PCP - General Family Medicine 12/01/19 04/07/24 documented as of this encounter
--- OUTSIDE RECORDS SUMMARY | 2024-05-31 01:24 | XMS_ITS | Encounter Summary ---
Author Organization [facility] Address [facility] [place] [address] Care Team Providers Care Supervisor Histology Name Role Phone Tiny Walters APRN Primary Care Provider +1- [phone] Encounter Details Date Type Department Care Team (Latest Contact Info) Description 05/10/2020 11:30 AM EST Office Visit Hematology/Oncology at [address] [phone] Carrie Jacob, SPANISH PROFESSOR Tonsil cancer; Dysphagia, oropharyngeal phase Social History [...] this encounter Progress Notes * Carrie Jacob, SPANISH PROFESSOR - 05/10/2020 11:30 AM ESTSummary: SPANISH PROFESSOR Follow Up Dysphagia;Trismus Speech Language Pathology Dysphagia Treatment Note Patient Profile: Zen Pickering is a 39-year-old man with recent diagnosis of 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 Interval History: Denies odynophagia, reports less gag hypersensitivity although oral cavity still very sore/tender, and has not noticed any differences with SalivaMax vs BSSR, finds BSSR more convenient at this time; somewhat less difficulty tolerating reviewed swallowing exercise with saliva swallows and with small sips of water, but still having significant difficulties; currently on gabapentin 300 mg 3x/day for mucositis pain management which is causing less nausea; continues with severe dysgeusia and significant difficulties with oral secretion management - thick, copious secretions; continues to tolerate tube feeds; ~5x/day HPI: Patient Active Problem List Diagnosis Code ??? 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 Raynaud's syndrome I73.00 ??? Gastrostomy tube in place Z93.1 Meds: reviewed RD visit 05/01/20: Meds: reviewed Labs: NNL [...] 02/11/20: 179 lbs Subjective: Patient with improved affect but also reports continued fatigue and frustration with copious thcik secretions, need to expel mucous and/or use suction throughout the day; reports increasein trismus per interview, also states he is willing to have VFSS/MBSS scheduled now that he feels he can better handle some po intake, albeit minimal, without gagging Objective: Pain: 2/10, right maxillary area, lingual frenulum, and tongue; mucositis contributing factor to pain, less consistent odynophagia but still very much present Respiratory Status: Room air Current Diet: Minimal tolerance of Level 0 Thin liquids Feeding / Oral Care Status: Pt is independent Using BSSR, biotene causes stinging sensation so has stopped this Oral / Laryngeal Mechanism Clinical Assessment: N/A due to time constraints; session focused on trismus management and education Trismus: REYNA: ?? Previous measure (02/22) at 31.75 mm Trismus Severity - Mild (30-34 mm) ?? Current: (05/10/20) at 25.4 mm Trismus Severity - Moderate (30-34 mm) (Jesus et al, 2006) Assessment: Pt assessed in office for motivational interview today; education provided re: risk factors for ORN and gentle passive massage and stretch techniques for trismus management per [employer] resources (provided with handout to follow prior to subsequent session), education re: healing progression of tissue s/p radiation txt, and information re: radiation fibrosis in context of both trismus and dysphagia progression/expected timelines and proposed treatment plan given completion of SCRUBBING MACHINE OPERATOR. Reviewed options for various passive ROM devices to address trismus in safe, systematic way (vs aggressive stretching with spoon) and patient is agreeable to use of OraStretch device as covered through his insurance, progressive ARK-J device(s) until this can be delivered. Discussed continued prophylactic swallowing exercise as tolerated, even if small amounts of water, and patient is in agreement; does have gag hypersensitivity likely due to toxicity of SCRUBBING MACHINE OPERATOR effecting hypoglossal nerve, however this is reduced relative to previous visit. Rescheduling of VFSS/MBSS to hopefully take place within next 2 weeks - patient prefers [place] given proximity, but is agreeable to either [place] or [facility]. Patient demonstrated comprehension with all recommendations regarding his treatment plan to adhere to aspiration precautions and swallowing exercise, despite level of pain and frustration; Patient continues to be appropriate candidate for SPANISH PROFESSOR intervention given continued motivation and support from spouse. Pt will benefit from continued therapeutic interventions to achieve therapy goals. Diagnosis: right tonsil squamous cell carcinoma, oropharyngeal dysphagia Recommendations: Diet: Continue Level 0 thin liquids as tolerated PO medications: via g tube as directed by MD / Pharmacist Risk Management: For po intake when tolerated - Upright position during meals and for at least 30 mins following Sensory enhancement (flavor, texture, temperature): Reduced rate/volume of thin liquids, effortful saliva swallow between sips VFSS/MBSS Recommend subsequent session to be scheduled in 1 week; earlier (through [place]) if symptoms become worse. Speech Therapy Goals: [...] management and education; review results from VFSS/MBSS as available; intervention for direct treatment planning/implementation, review of additional strategies to aid in swallowing/speech abilities and support quality of life. SPANISH PROFESSOR to submit paperwork to [employer] for OraStretch device; confirm scheduling for VFSS/MBSS and coordinate with [facility] SPANISH PROFESSOR as needed. Please feel free to contact me with any questions or concerns regarding Mr. Pickering's care. Carrei Jacob MA [facility]-SPANISH PROFESSOR Speech-Language Pathologist [email or web address] documented in this encounter Plan of Treatment Upcoming Encounters Date Type Department Care Team (Late st Contact Info) Description 05/31/2024 11:30 AM EST Office Visit Hematology/Oncolog y at [address] [phone] Tej Tipton MD [address] [facility] HEMATOLOGY & [place] [address] Stacy Valle APRN [facility] [place] [address] 06/01/2024 10:30 AM EST Scheduled View [place] [phone] 06/01/2024 11:00 AM EST Office Visit [place] [phone] Luis E Chin MD [facility] DR RADIATION ONCOLOGY [place], [place] [phone] 06/04/2024 8:30 AM EST Hospital Encounter [place] [address] Rayshawn Suresh MD [facility] [place] [address] 06/04/2024 8:30 AM EST - 06/04/2024 1:05 PM EST Surgery [place] [address] Rayshawn Suresh MD [facility] [place] [address] @THORACOSCOPY, SURG; W PLEURODESIS (WRVU 10.83) Scheduled [...] phase documented in this encounter Care Teams Supervisor Histology Relationship Specialty Start Date End Date Tiny Walters APRN [address] [place] [phone] PCP - General Family Medicine 12/01/19 04/07/24 documented as of this encounter
--- OUTSIDE RECORDS SUMMARY | 2024-05-31 01:24 | XMS_ITS | Encounter Summary ---
Author Organization [facility] [place] [address] Care Team Providers Care Hr Advisor Name Role Phone Tiny Walters APRN Primary Care Provider +1- [phone] Encounter Details Date Type Department Care Team (Late Contact Info) Description 05/16/2020 Orders Only Hematology [place] [address] Dominique Echavarria [facility] [address] [place] [address] Tonsil cancer Social History Tobacco Use Types [...] AM EST Office Visit Hematology/Oncolog y at [address] [phone] Tej Tipton MD [address] [facility] HEMATOLOGY & [place] [address] Stacy Valle [facility] [place] [address] 06/01/2024 10:30 AM EST Scheduled View [place] [address] 06/01/2024 11:00 AM EST Office Visit [place] [phone] Luis E Chin MD [facility] [place] [address] 06/04/2024 8:30 AM EST Hospital Encounter [place] [phone] Rayshawn Suresh MD [facility] [place] [address] 06/04/2024 8:30 AM EST - 06/04/2024 1:05 PM EST Surgery [place] [phone] Rayshawn Suresh MD [facility] [place] [address] @THORACOSCOPY, SURG; W PLEURODESIS (WRVU 10.83) Scheduled Procedures Name Priority Associated Diagnoses Date/Ti me @THORACOSCOPY, SURG; W PLEURODESIS (WRVU 10.83) metastatic pleural effusion 06/04/2024 8:30 AM EST BRONCHOSCOPY, DIAGNOSTIC (WRVU 2.53) metastatic pleural effusion 06/04/2024 8:30 AM EST DIONNA\ALMA.CATHETER,TUNNELED, WITH SQ PORT OR PUMP OVER 5YR (WRVU 5.79) metastatic pleural effusion 06/04/2024 8:30 AM EST documented as of this encounter Results * Magnesium (07/20/2020 9:35 AM EDT) Magnesium 0.81 0.69 - 1.07 mmol/L [facility] Blood specimen (specimen) 07/20/2020 9:35 AM EDT 07/20/2020 9:49 AM EDT Narrative Resulting Agency Comment Spec In Lab Dominique Echavarria BATSHEVA CHEMISTRY ORDERAB LES [facility] [place] [address] * Comprehensive metabolic panel (non-fasting) (07/20/2020 9:35 AM EDT) Glucose 93 65 - 199 mg/dL [facility] Comment:Diabetes: >=200 mg/d L plus symptoms Blood Urea Nitrogen 17 10 - 20 mg/dL [facility] Creatinine 1.07 0.80 - 1.50 mg/dL [facility] Sodium 137 135 - 145 mmol/L [facility] Potassium 4.1 3.5 - 5.0 mmol/L [facility] Comment: Please note: ??Patients with WBC >100,000 may have falsely elevated Potassium levels. ??For accurate Potassium quantification in these patients send serum separator tube (gold top) for subsequent determinations. ??Contact the Clinical Chemistry Laboratory if there are any questions. Chloride 103 98 - 107 mmol/L [facility] Carbon Dioxide 24 22 - 31 mmol/L [facility] Anion Gap 10 5 - 15 mmol/L [facility] Calcium 9.6 8.5 - 10.5 mg/dL [facility] Protein, Total 8.0 6.1 - 8.0 gm/dL [facility] Albumin 4.6 3.2 - 5.2 gm/dL [facility] Aspartate Aminotransferase 24 0 - 39 unit/L [facility] Alanine Aminotransferase 24 0 - 55 unit/L [facility] Alkaline Phosphatase 75 40 - 130 unit/L [facility] Bilirubin, Total 0.7 0.2 - 1.3 mg/dL [facility] Est Glomerular Filtration Rate 88 >=60 mL/min/1. 73 m?? [facility] Comment: This patient? s estimated [...] Lab Dominique Echavarria [place] [address] documented in this encounter Visit Diagnoses Diagnosis Tonsil cancer Malignant neoplasm of tonsil documented in this encounter Care Teams Hr Advisor Relationship Specialty Start Date End Date Tiny Walters APRN [address] [place] [phone] PCP - General Family Medicine 12/01/19 04/07/24 documented as of this encounter
--- OUTSIDE RECORDS SUMMARY | 2024-05-31 01:24 | XMS_ITS | Encounter Summary ---
Author Organization Formerly [facility] Address [facility] [place] [address] Care Team Providers Care Block Mechanic Name Role Phone Tiny Walters APRN Primary Care Provider +1- [phone] Encounter Details Date Type Department Care Team (Late st Contact Info) Description 06/14/2020 11:30 AM EST Office Visit Radiation Oncology at [address] [phone] Jose Martin Rae MD [facility] [place] [address] Tonsil cancer Social History Tobacco Use Types [...] Sign Reading Time Taken Comments Blood Pressure 102/71 06/14/2020 11:42 AM EST Pulse 68 06/14/2020 11:42 AM EST Temperature 36.5 ??C (97.7 ??F) 06/14/2020 11:[address] Respiratory Rate 18 06/14/2020 11:42 AM EST Oxygen Saturation 100% 06/14/2020 11:42 AM EST Inhaled Oxygen Concentration - - Weight 73.9 kg (163 lb) 06/14/2020 11:42 AM EST Height - - Body Mass Index 25.43 05/29/2020 9:37 AM EST documented in this encounter Progress Notes * Jose Martin Rae MD - 06/14/2020 11:30 AM EST FOLLOW UP VISIT NOTE Zen Pickering is a 39 y.o. 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 Definitive chemoradiotherapy completed 04/19/20 Changes in medical condition Pain: 1-2/10 pain associated with right posterior oropharynx, right oral tongue. Not using Neurontin. Secretions/Dryness: Dysgeusia slightly improved; mucous is minimal, moderate xerostomia. Dysphagia: no coughing / choking Nutrition: small volume by mouth, but tolerating soft foods. Drinking without difficulty G tube: tolerating tube feeds; 6x/day Skin: mild itching, using lotion GI: -N/V: no nausea -Bowels: no issues Nutrition Assessment: Weight : 80.1 kg initial Change: 73.8 kg => 73.9 kg Objective: Vitals: 06/14/20 1142 BP: 102/71 Patient Position: Sitting Pulse: 68 Resp: 18 Temp: 36.5 ??C (97.7 ??F) TempSrc: Temporal SpO2: 100% Weight: 73.9 kg (163 lb) SKIN: no skin erythema MUCOSA: erythema right tonsillar fossa, mucositis/ulceration resolved. Radiation change left tongue. Assessment: Improving toxicity. Continued progress towards d/c TF, will work with jigger operator to achieve. CTCAE TOXICITY GRADES (see below for corrales): Site Grade Skin 0 Xerostomia 2 Pharyngeal Mucositis 2 Dysphagia 3 Hoarseness 0 Plan: ?? Pain control: ?? OTC medications ?? BMX prn ?? Skin: MG cream prn ?? Mucositis: ?? Pain control: see above ?? Oral hygiene consisting of baking soda/salt rinse at least 8 times daily ?? Mucinex prn for thick secretions ?? Suction ?? Alimentation: jigger operator following ?? Weight stable, most nutrition via G tube ?? Working with PROGRAM COUNSELOR ?? FU: I will see him in one month CTCAE v4.03 scales for reference Skin 0 [...] AM EST Office Visit Hematology/Oncolog y at [address] [phone] Tej Tipton MD [facility] [place] [address] Stacy Valle APRN [facility] [place] [place] [address] 06/01/2024 10:30 AM EST Scheduled View Only [place] [address] 06/01/2024 11:00 AM EST Office Visit [place] [address] Luis E Chin MD [facility] [place] [address] 06/04/2024 8:30 AM EST Hospital Encounter [place] [phone] Rayshawn Suresh MD [facility] [place] [address] 06/04/2024 8:30 AM EST - 06/04/2024 1:05 PM EST Surgery [place] [address] Rayshawn Suresh MD [facility] [place] [address] @THORACOSCOPY, SURG; W PLEURODESIS (WRVU 10.83) Scheduled [...] tonsil documented in this encounter Care Teams Block Mechanic Relationship Specialty Start Date End Date Tiny Walters APRN [address] [place] [phone] PCP - General Family Medicine 12/01/19 04/07/24 documented as of this encounter
--- OUTSIDE RECORDS SUMMARY | 2024-05-31 01:24 | XMS_ITS | Encounter Summary ---
Author Organization Formerly [facility] Address [facility] [place] [address] Care Team Providers Care Leather Stretcher Name Role Phone Tiny Walters APRN Primary Care Provider +1- [phone] Encounter Details Date Type Department Care Team (Latest Contact Info) Description 05/17/2020 9:30 AM EST Office Visit Hematology/Oncology at [address] [phone] Carrie Jacob, SAILOR Dysphagia, oropharyngeal phase; Tonsil cancer Social History [...] * Treatment - Therapy - Carrie Jacob, SAILOR - 05/17/2020 9:30 AM ESTSummary: SAILOR Follow Up Trismus Speech Language Pathology Dysphagia Treatment Note Patient Profile: Zen Pickering is a 39-year-old man with 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 Interval History: Reports occasional odynophagia (esophagus, back of tongue), reports continually lessened gag hypersensitivity although oral cavity still very sore/tender,contines with BSSR and increased sense of taste; much less difficulty tolerating reviewed swallowing exercise with saliva swallows and with small sips of water, able to tolerate this more frequently; currently on pain medication every 4 hours [...] pain relative to previous week, states VFSS/MBSS in process of being scheduled locally through [facility] Objective: Pain: 1-2/10, right maxillary area, lingual frenulum, and tongue; mucositis contributing factor to pain, less consistent odynophagia but still occasionally present Describes odynophagia as throat scratchiness more similar to sore throat feeling, is consistent with either saliva swallows and/or water Respiratory Status: Room air Current Diet: Level 0 Thin liquids Feeding / Oral Care Status: Pt is independent Using BSSR, is using biotene toothpaste Oral / Laryngeal Mechanism Clinical Assessment: No changes relative to previous visit Trismus: REYNA: ?? Previous measurements 02/22/21 at 31.75 mm 05/10/20 at 25.4 mm Current 05/17/20 at 27 mm - Trismus Severity - Mild (Jesus et al, 2006) Direct Trismus Treatment / Training: Initial REYNA: 27 mm Tissue Manipulation: Completed Stretch/Massage routine Passive exercise with ARK-J Level 2 Device Hold 20 secs / 5 reps, 3 sets 3-4x/day Reported pain at 3-4 / 10, dissipates to 2-3/10 with holds, repetitions Active jaw ROM exercise: N/A (to be addressed at subsequent session) Ending REYNA: 35 mm Assessment: Pt assessed in office for motivational interview today; education provided re: use or ARK-J level 2 device for passive exercise and gentle passive massage and stretch techniques for trismus management per ARK-J resources (provided with handout to follow prior to subsequent session), continued education re: healing progression of tissue s/p radiation txt, and information re: radiation fibrosis in context of both trismus and dysphagia progression/expected timelines and proposed treatment plan given completion of TREATING MACHINE OPERATOR. Reviewed options for various passive ROM devices to address trismus in safe, systematic way (vs aggressive stretching with spoon) and patient provided with ARK-J Level 2 device to utilize for HEP. Per [facility] and patient, Orastretch device would require out of packet payment due to patient's deductible a this time; will continue to explore financial alternatives and utilize ARK-J device(s) for the time being. Discussed continued prophylactic swallowing exercise as tolerated, even if small amounts of water, and patient is in agreement. VFSS/MBSS to take place at [facility], time/date TBD. Patient demonstrated comprehension with all recommendations regarding [...] be scheduled in 1 week; earlier (through [facility]) if symptoms become worse. Speech Therapy Goals: [...] swallowing/speech abilities and support quality of life. SAILOR to confirm scheduling for VFSS/MBSS and coordinate with [facility] SAILOR(s) as needed. Please feel free to contact me with any questions or concerns regarding Mr. Pickeirng's care. Carrie Jacob MA CCC-SAILOR Speech-Language Pathologist [email or web address] documented in this encounter Plan of Treatment Upcoming Encounters Date Type Department Care Team (Late st Contact Info) Description 05/31/2024 11:30 AM EST Office Visit Hematology/Oncolog y at [address] [phone] Tej Tipton MD [address] [facility] H[place]Y [place] [address] Stacy Valle APRN [facility] [place] [address] 06/01/2024 10:30 AM EST Scheduled View [place] [address] 06/01/2024 11:00 AM EST Office [place] [address] Luis E Chin MD [facility] [address] 06/04/2024 8:30 AM EST Hospital Encounter [place] [address] Rayshawn Suresh MD [facility] [place] [address] 06/04/2024 8:30 AM EST - 06/04/2024 1:05 PM EST Surgery [place] [address] Rayshawn Suresh MD [facility] [place] [address] @THORACOSCOPY, SURG; W PLEURODESIS (WRVU 10.83) Scheduled [...] documented in this encounter Care Teams Leather Stretcher Relationship Specialty Start Date End Date Tiny Walters APRN [address] [place] [phone] PCP - General Family Medicine 12/01/19 04/07/24 documented as of this encounter
--- OUTSIDE RECORDS SUMMARY | 2024-05-31 01:24 | XMS_ITS | Encounter Summary ---
Author Organization [facility] [place] [address] Care Team Providers Care Bd Special Education Teacher Name Role Phone Tiny Walters APRN Primary Care Provider +1- [phone] Encounter Details Date Type Department Care Team (Late Contact Info) Description 06/12/2020 2:05 PM EST Ancillary Procedure Radiology Library at [facility] [place] [place] [address] Tiny Walters APRN [address] [place] [phone] Social History Tobacco Use Types Packs/Day Years [...] EST Office Visit Hematology/Oncolog y at [address] [phone] Tej Tipton MD [address] [facility] HEMATOLOGY [place] [address] Stacy Valle APRN [facility] [place] [address] 06/01/2024 10:30 AM EST Scheduled View [place] [address] 06/01/2024 11:00 AM EST Office [place] [address] Luis E Chin MD [facility] DR [place] [address] 06/04/2024 8:30 AM EST Hospital Encounter [place] [phone] Rayshawn Suresh MD [facility] [place] [address] 06/04/2024 8:30 AM EST - 06/04/2024 1:05 PM EST Surgery [place] [phone] Rayshawn Suresh MD [facility] DR [place] [address] @THORACOSCOPY, SURG; W PLEURODESIS (WRVU 10.83) Scheduled [...] Diagnosis Comments FILM LIBRARY STORAGE ONLY DX GI STUDY Routine 06/12/2020 2:03 PM EST documented in this encounter Results * Film Library- Storage Only DX GI Study (06/12/2020 2:03 PM EST) Narrative RAD - 06/12/2020 2:03 PM EST This exam is auto-finalizing. It's purpose is for storage only. Tiny Walters APRN IMG FILM LIBRARY O RDERABLES [place], [place] documented in this encounter Visit Diagnoses Not on filedocumented in this encounter Care Teams Bd Special Education Teacher Relationship Specialty Start Date End Date Tiny Walters APRN [address] [place] [phone] PCP - General Family Medicine 12/01/19 04/07/24 documented as of this encounter
--- OUTSIDE RECORDS SUMMARY | 2024-05-31 01:24 | XMS_ITS | Encounter Summary ---
Author Organization [facility] Address [facility] [place] [address] Care Team Providers Care Consultant Nurse Name Role Phone Tiny Walters APRN Primary Care Provider +1- [phone] Encounter Details Date Type Department Care Team (Late st Contact Info) Description 05/29/2020 Notes Only Hematology/Oncology at [address] [phone] Alyse Kirk [employer] OFFICE OF CARE MANAGEMENT Social History Tobacco [...] Progress Notes * Alyse Kirk MSW - 05/29/2020 11:07 AM EST Follow up with pt after provider visit. on the phone. Pt indicated his short tem disability will end 214-21. He is out of his FMLA. Pt reporting he opted in for LT Disability through his work during the open enrolment period. He is now told it did not go through because some documentation wasnot done. Pt indicated he never received any forms to complete. Suggested pt work with his local HRrep to figure out his options are to address this. Also suggested he work with the LT Disability company to find out where the issue is. Pt indicated this has caused a lot of worry as he is trying torecover from his treatments. They are concerned about what the future holds and want to have accessto as many benefits as pt is eligible for. For that reason pt opted into LT Disability benefit through his work. Offered support. Pt and indicated the family was doing well overall. They are managing day to day. is homeschooling the children. Reminded pt and of [employer] availability and contact information. Will follow for support and resources. documented in this encounter Plan of Treatment Upcoming Encounters Date Type Department Care Team (Late st Contact Info) Description 05/31/2024 11:30 AM EST Office Visit Hematology/Oncolog y at [address] [phone] Tej Tipton MD [address] [facility] HEMATOLOGY & [place] [address] Stacy Valle APRN [facility] [place] [address] 06/01/2024 10:30 AM EST Scheduled View [place] [address] 06/01/2024 11:00 AM EST Office Visit [place] [phone] Luis E Chin MD [facility] [place] [address] 06/04/2024 8:30 AM EST Hospital Encounter [place] [phone] Rayshawn Suresh MD [facility] [place] [address] 06/04/2024 8:30 AM EST - 06/04/2024 1:05 PM EST Surgery [place] [address] Rayshawn Suresh MD [facility] [place] [address] @THORACOSCOPY, SURG; W PLEURODESIS (WRVU 10.83) Scheduled [...] on filedocumented in this encounter Care Teams Consultant Nurse Relationship Specialty Start Date End Date iTny Walters APRN [address] [place] [phone] PCP - General Family Medicine 12/01/19 04/07/24 documented as of this encounter
--- OUTSIDE RECORDS SUMMARY | 2024-05-31 01:25 | XMS_ITS | Encounter Summary ---
Author Organization [facility] Address [facility] [place] [address] Care Team Providers Care Door Core Assembler Name Role Phone Tiny Walters APRN Primary Care Provider +1- [phone] Encounter Details Date Type Department Care Team (Late st Contact Info) Description 04/26/2020 9:30 AM EST Office Visit Radiation Oncology at [address] [phone] Jose Martin Rae MD [facility] [address] Tonsil cancer Social History Tobacco Use Types [...] Sign Reading Time Taken Comments Blood Pressure 106/65 04/26/2020 9:59 AM EST Pulse 86 04/26/2020 9:59 AM EST Temperature 36.6 ??C (97.9 ??F) 04/26/2020 9:59 AM ES T Respiratory Rate 18 04/26/2020 9:59 AM EST Oxygen Saturation 100% 04/26/2020 9:59 AM EST Inhaled Oxygen Concentration - - Weight 73.5 kg (162 lb) 04/26/2020 9:59 AM EST Height - - Body Mass Index 25.28 04/24/2020 9:42 AM EST documented in this encounter Progress Notes * Jose Martin Rae MD - 04/26/2020 9:30 AM EST FOLLOW UP VISIT NOTE Zen Pickering is a 39 y.o. 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 Definitive chemoradiotherapy completed last week. Changes in medical condition Pain: Odynophagia, 2-3/10, worse with dryness / swallowing; no longer using oxycodone, only gabpapentin Secretions/Dryness: severe dysgeusia; significant xerostomia / thick secretions. Stable to slightlyimproved. Using BSSW, Mucinex, suction Nutrition: able to tolerate minimal liquids, gagging limits intake of solids G tube: tolerating tube feeds; 5x/day Swallowing Function: sips of water Skin: itching / burning improved; using MG cream GI: -N/V: no nausea since d/c oxycodone -Bowels: no issues Nutrition Assessment: Weight : 80.1 kg initial Change: 75.1 kg => 73.5 kg Objective: Vitals: 04/26/20 0959 BP: 106/65 Patient Position: Sitting Pulse: 86 Resp: 18 Temp: 36.6 ??C (97.9 ??F) TempSrc: Temporal SpO2: 100% Weight: 73.5 kg (162 lb) SKIN: mild skin erythema MUCOSA: patchy mucositis posterior oropharynx and oral cavity. Assessment: High level toxicity with severe dysgeusia, xerostomia/thick secretions, and slight weight loss. Stable, tolerating symptoms. CTCAE TOXICITY GRADES (see below for corrales): Site Grade Skin 1 Xerostomia 3 Pharyngeal Mucositis 3 Dysphagia 2 Hoarseness 0 Plan: ?? Pain control: ?? OTC medications ?? BMX prn ?? Neurontin ?? Oxycodone prn ?? Skin: MG cream prn ?? Mucositis: ?? Pain control: see above ?? Oral hygiene consisting of baking soda/salt rinse at least 8 times daily ?? Mucinex prn for thick secretions ?? Suction ?? Alimentation: drywall professional following ?? Weight decreased, all nutrition via G tube due to secretions FU: I will see him in two weeks, to see Dr. Christy next week. CTCAE v4.03 scales for reference Skin 0 [...] EST Office Visit Hematology/Oncolog y at [address] [phone] Tej Tipton MD [address] [facility] HEMATOLOGY [place] [address] Stacy Valle APRN [facility] [place] [address] 06/01/2024 10:30 AM EST Scheduled View [place] [address] 06/01/2024 11:00 AM EST Office [place] [address] Luis E Chin MD [facility] [place] [address] 06/04/2024 8:30 AM EST Hospital Encounter [place] [address] Rayshawn Suresh MD [facility] [place] [address] 06/04/2024 8:30 AM EST - 06/04/2024 1:05 PM EST Surgery [place] [address] Rayshawn Suresh MD [facility] [place] [address] @THORACOSCOPY, SURG; W PLEURODESIS (WRVU 10.83) Scheduled [...] tonsil documented in this encounter Care Teams Door Core Assembler Relationship Specialty Start Date End Date Tiny Walters APRN [address] [place] [phone] PCP - General Family Medicine 12/01/19 04/07/24 documented as of this encounter
--- OUTSIDE RECORDS SUMMARY | 2024-05-31 01:25 | XMS_ITS | Encounter Summary ---
Author Organization [facility] Address [facility] [place] [address] Care Team Providers Care Linter Saw Sharpener Name Role Phone Tiny Walters APRN Primary Care Provider +1- [phone] Encounter Details Date Type Department Care Team (Late st Contact Info) Description 04/10/2020 10:15 AM EST Office Visit Hematology/Oncology at [address] [phone] Gume Christy MD [address] [place] [address] [place] [address] Tonsil cancer; Gastrostomy tube in place Social [...] Sign Reading Time Taken Comments Blood Pressure 128/87 04/10/2020 10:18 AM EST Pulse 104 04/10/2020 10:18 AM EST Temperature 37.4 ??C (99.3 ??F) 04/10/2020 1 0:18 AM EST Respiratory Rate 16 04/10/2020 10:1 8 AM EST Oxygen Saturation 100% 04/10/2020 10: 18 AM EST Inhaled Oxygen Concentration - - Weight 74.3 kg (163 lb 12.8 oz) 020 10:18 AM EST Height 170.5 cm (5' 7.13) 04/10/2020 1 0:18 AM EST Body Mass Index 25.56 04/10/2020 10:18 AM EST documented in this encounter Progress Notes * Gume Christy MD - 04/10/2020 10:15 AM EST Hematology/Oncology Clinic [facility] Patient Active Problem List Diagnosis ??? 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 Odynophagia, progressing to R otalgia, headache, trismus Summer 2019; large R tonsil non-ker SCCa extending to intrinsic tongue, pterygoids, FOM; nonpalable bilateral adenopathy B. Definitive chemoradiation (weekly cisplatin) instituted 02/29/2020; course c/b RLL pneumonia 03/21/2020 ??? Dehydration ??? Aspiration pneumonia of right lower lobe ??? Dysphagia, oropharyngeal phase ??? Gastrostomy tube in place Balloon-retained (5 mL inflation), 16 Fr, placed by [facility] [place] [place] 02/11/2020 ??? Raynaud's syndrome ONCBCN ONCOLOGY (AMB) 02/29/2020 03/06/2020 Day, Cycle Day 1, Cycle 1 Day 8, Cycle 1 CISplatin (PlatinoL) IV 40 mg/m2/dose = 79 mg 40 mg/m2/dose = 79 mg ONCBCN ONCOLOGY (AMB) 03/13/2020 03/20/2020 Day, Cycle Day 15, Cycle 1 Day 22, Cycle 1 CISplatin (PlatinoL) IV 40 mg/m2/dose = 79 mg 40 mg/m2/dose = 79 mg ONCBCN ONCOLOGY (AMB) 03/27/2020 04/03/2020 Day, Cycle Day 29, Cycle 1 Day 36, Cycle 1 CISplatin (PlatinoL) IV 40 mg/m2/dose = 79 mg 40 mg/m2/dose = 79 mg Med Onc checkup and dose #7 cisplatin (last planned chemotherapy). Due for RT fraction #28 today (56 Gy). He continues to tolerate chemotherapy well in terms of cisplatin-specific side effects. He has had no worse than mild nausea, no tinnitus, no peripheral neuropathy. He has been working hard on hydration through the G-tube, and we added day 2 intravenous hydration in addition to pre and post chemo hydration and day 4 hydration. His main side effect continues to be obnoxious, copious phlegm production. This is gotten worse week by week. He uses his portable suction machine almost continually. His sleep is interfered by phlegm, and need to cough, and occasionally gagging. He is also developing more mouth and throat pain. He has not been taking any analgesics for this. He is totally G-tube dependent for nutrition. His formula was changed to a higher calorie type, well-tolerated so far. Energy level is poor for him, KPS 80. Physical exam: He is in no acute distress, looks well, but affect less bright than baseline Oral exam shows good hydration. No signs of infection. Tongue still deviates to the right slightly,with discomfort. Mild trismus. Grade 2-3 mucositis developing the right tonsillar bed, tumor no longer visible. Neck shows grade 1 hyperpigmentation. No palpable adenopathy. The lungs are clear Cardiac exam is normal although with borderline tachycardia. Mediport site is benign Abdomen is benign, G-tube site clean Extremities are without clubbing cyanosis or edema Neurologic exam shows normal motor and sensory function. Cranial nerves normal except for rightwardtongue deviation. Reflexes 2+ Labs: Today's white count is 3.28 with ANC 2400, hemoglobin stable at 10.9, platelets stable at 198. Chemistry panel shows normal electrolytes, stable creatinine 1.11, BUN slightly high at 23. Hepatic enzymes normal. Magnesium trace low at 1.7. Albumin holding steady at 3.5. 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 He does seem to get very slight benefit from hydration; we discussed drying agents he feels that thicker mucus would be more bothersome than copious mucus. Plan: Proceed with today's final dose of chemotherapy. IV hydration tomorrow, again on , and we will add IV hydration on Friday. Follow-up next week with an infusion appointment anticipating additional hydration. Continue same supportive care otherwise. Gume Christy MD, FACP technology methodology consultant Hematology/Oncology Section [facility]/[address] [address] Voice recognition software used for this note; please excuse trailer assembler errors. I personally reviewed past medical, surgical, family medical histories, reviewed current medications, vital signs, labs, and performed full review of systems. These are documented below the narrativefor clarity and succinctness. Outpatient Medications Marked as Taking for the 04/10/20 encounter (Office Visit) with Gume Christy MD Medication Sig Dispense Refill ??? guaiFENesin ER (Mucinex) 600 mg Tablet Extended Release 12hr Take 1,200 mg by mouth 2 times daily. ??? venlafaxine XR (Effexor-XR) 75 mg Capsule, Sust. Release 24 hr TAKE ONE CAPSULE BY MOUTH EVERY DAY Review of Systems: Review of systems is negative for other BUSINESS ANALYSIS PROFESSIONAL, bone, pulmonary, cardiac, GI, , extremity, neurologic, endocrine, skin, constitutional, emotional, or functional problems. Vitals Office Visit from 04/10/2020 in Hematology/Oncology at [facility] Weight 74.3 kg (163 lb 12.8 oz) Height 170.5 cm (5' 7.13) BSA (Calculated - sq m) 1.88 sq meters BMI (Calculated) 25.56 Temp 37.4 ??C (99.3 ??F) Temp src Temporal Heart Rate (!) 104 Heart Rate Source Right, NIBP Resp 16 BP 128/87 BP Location Right arm Patient Position Sitting SpO2 100 % Karnofsky Score 70 Body surface area is 1.88 meters squared. Wt Readings from Last 3 Encounters: 04/10/20 74.3 kg (163 lb 12.8 oz) 04/06/20 74.6 kg (164 lb 6.4 oz) 04/05/20 76.7 kg (169 lb) No results found for this or any previous visit (from the past 72 hour(s)). ++++++++++++++++++++++++++++++++++++++++++++++++++++ documented in this encounter Plan of Treatment Upcoming Encounters Date Type Department Care Team (Late st Contact Info) Description 05/31/2024 11:30 AM EST Office Visit Hematology/Oncolog y at [address] [phone] Tej Tipton MD [address] [place] [address] HEMATOLOGY & [place] [address] Stacy Valle APRN [facility] [place] [address] 06/01/2024 10:30 AM EST Scheduled View Only Radiation Oncology at [place] [phone] 06/01/2024 11:00 AM EST Office [place] [phone] Luis E Chin MD [facility] [place] [address] 06/04/2024 8:30 AM EST Hospital Encounter [place] [address] Rayshawn Suresh MD [facility] [place] [address] 06/04/2024 8:30 AM EST - 06/04/2024 1:05 PM EST [place] [address] Rayshawn Suresh MD [facility] [place] [address] @THORACOSCOPY, SURG; W PLEURODESIS (WRVU 10.83) Scheduled [...] place documented in this encounter Care Teams Linter Saw Sharpener Relationship Specialty Start Date End Date Tiny Walters APRN [address] [place] [phone] PCP - General Family Medicine 12/01/19 04/07/24 documented as of this encounter
--- OUTSIDE RECORDS SUMMARY | 2024-05-31 01:25 | XMS_ITS | Encounter Summary ---
Author Organization [facility] Address [facility] [place] [address] Care Team Providers Care Car Pusher Name Role Phone Tiny Walters APRN Primary Care Provider +1- [phone] Encounter Details Date Type Department Care Team (Late st Contact Info) Description 04/19/2020 2:00 PM EST Office Visit Radiation Oncology at [address] [phone] Jose Martin Rae MD [facility] [place] [address] Tonsil cancer Social History Tobacco Use Types [...] Notes * Jose Martin Rae MD - 04/19/2020 2:00 PM EST ON TREATMENT VISIT NOTE Zen Pickering is a 39 y.o. 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 Definitive chemoradiotherapy. Current treatment dose: 70 Gy in 35 fractions. Anticipated total dose: 70 Gy in 35 fractions. Concomitant Therapy: Y ONC BCA CHEMO (AMB) 02/29/2020 03/06/2020 03/13/2020 Day, Cycle Day 1, Cycle 1 Day 8, Cycle 1 Day 15, Cycle 1 CISplatin (PlatinoL) IV 40 mg/m2/dose 40 mg/m2/dose 40 mg/m2/dose ONC BCA CHEMO (AMB) 03/20/2020 03/27/2020 04/03/2020 Day, Cycle Day 22, Cycle 1 Day 29, Cycle 1 Day 36, Cycle 1 CISplatin (Platinol) IV 40 mg/m2/dose 40 mg/m2/dose 40 mg/m2/dose ONC BCA CHEMO (AMB) 04/10/2020 Day, Cycle Day 43, Cycle 1 CISplatin (Platinol) IV 40 mg/m2/dose Evaluation of Port Verification Films: PORT films have been reviewed, please see FOZIA for details. Intercurrent History: infection resolved Changes in medical condition Pain: Odynophagia, 3-5/10, worse with dryness / swallowing; Oxycodone 5 mg every four hours. Secretions/Dryness: severe dysgeusia; significant xerostomia / thick secretions. Using BSSW, Mucinex, suction Nutrition: able to tolerate minimal liquids, gagging limits intake of solids G tube: tolerating tube feeds; 5x/day Swallowing Function: sips of water Skin: itching / burning intermittently; using MG cream GI: -N/V: mild nausea; using compazine -Bowels: no issues Nutrition Assessment: Weight : 80.1 kg initial Change: 76.7 kg => 75.1 kg Objective: There were no vitals filed for this visit. SKIN: mild skin erythema MUCOSA: patchy mucositis posterior oropharynx and oral cavity. Assessment: High level toxicity with severe dysgeusia, xerostomia/thick secretions, and weight loss CTCAE TOXICITY GRADES (see below for corrales): [...] for thick secretions ?? Suction ?? Alimentation: public health dietitian following ?? Weight decreased, all nutrition via G tube due to secretions ?? FU: I will see him next week CTCAE v4.03 scales for reference Skin 0 [...] EST Office Visit Hematology/Oncolog y at [address] [phone] Tej Tipton MD [address] [facility] HEMATOLOGY & [place] [address] Stacy Valle APRN [facility] [place] [address] 06/01/2024 10:30 AM EST Scheduled View Only [place] [phone] 06/01/2024 11:00 AM EST Office Visit [place] [address] Luis E Chin MD [facility] [place] [address] 06/04/2024 8:30 AM EST Hospital Encounter [place] [address] Rayshawn Suresh MD [facility] [place] [address] 06/04/2024 8:30 AM EST - 06/04/2024 1:05 PM EST Surgery [place] [address] Rayshawn Suresh MD [facility] [place] [address] @THORACOSCOPY, SURG; W PLEURODESIS (WRVU 10.83) Scheduled [...] tonsil documented in this encounter Care Teams Car Pusher Relationship Specialty Start Date End Date Tiny Walters APRN [address] [place] [phone] PCP - General Family Medicine 12/01/19 04/07/24 documented as of this encounter
--- OUTSIDE RECORDS SUMMARY | 2024-05-31 01:25 | XMS_ITS | Encounter Summary ---
Author Organization [facility] Address [facility] [place] [address] Care Team Providers Care Hot Box Spotter Name Role Phone Tiny Walters APRN Primary Care Provider +1- [phone] Reason for Visit * Reason Comments Chemotherapy * Treatment/Therapy Plan Authorization (Routine) - Closed Specialty Diagnoses / Procedures Referred By Contac t Referred To Contact Diagnoses Tonsil cancer Dehydration Drug-induced nausea and vomiting Procedures TC PALONOSETRON HCL, 25MCG, INJECTION (ALOXI) TC APREPITANT, 1 MG, INJECTION TC CISPLATIN, POWDER OR SOLUTION, 10MG, INJECTION Gume Christy MD [address] [place] [address] [place] [address] [facility] Hem Onc Infusion [address] [place] [phone] Referral ID Status Reason Start Date Expiration Date Visits Re quested Visits Authorized [id number] Closed 01/24/2020 04/17/2021 30 0 Encounter Details Date Type Department Care Team (Late st Contact Info) Description 04/03/2020 11:00 AM EST Infusion Hematology Oncology at [address] [phone] Tonsil cancer Social History Tobacco [...] as of this encounter Progress Notes * Maurilio Jennings RN - 04/03/2020 11:00 AM EST INFUSION THERAPY ADMINISTRATION NOTES DIAGNOSIS: Tonsil CA ( Head /Neck) CYCLE #: Day 36 Cycle 1 REASON FOR VISIT: Cisplatin SUBJECTIVE Zen offers no complaints. OBJECTIVE LAB DATA: WBC 4.28; PLT 167; ANC 3.29; BUN 23; Creat 1.13; Mag 1.8 IV ACCESS: Implanted port Pre administration: Chemotherapy orders independently verified for drug name, route, and dosage per patient's height, weight and BSA by Babatunde RN, Tequila Hyde RN & Pharm Ken. REACTIONS (DESCRIPTION, TIME, INTERVENTION AND EFFECTIVENESS) none ASSESSMENT Zen was awake, alert and tolerated treatment well. Port flushed with 20 ml NS and 500 units Heparin but not de accessed per patient's request due Hydration tomorrow morning. PLAN Return to clinic per routine. documented in this encounter Plan of Treatment Upcoming Encounters Date Type Department Care Team (Late st Contact Info) Description 05/31/2024 11:30 AM EST Office Visit Hematology/Oncolog y at [address] [phone] Tej Tipton MD [address] [facility] DR HEMATOLOGY [place] [address] Stacy Valle APRN [facility] [place] [address] 06/01/2024 10:30 AM EST Scheduled View [place] [phone] 06/01/2024 11:00 AM EST Office [place] [address] Luis E Chin MD [facility] [place] [address] 06/04/2024 8:30 AM EST Hospital Encounter [place] [address] Rayshawn Suresh MD [facility] [place] [address] 06/04/2024 8:30 AM EST - 06/04/2024 1:05 PM EST Surgery [place] [phone] Rayshawn Suresh MD [facility] [place] [address] @THORACOSCOPY, SURG; W PLEURODESIS (WRVU 10.83) Scheduled [...] Action Action Date Dose Rate Site aprepitant (CINVANTI) injection Emul 130 mg 130 mg, Intravenous, Administer over 2 Minutes, ONCE, 1 dose, On Fri04/03/20 at 1130, Alternative administration of IV push over 2 minutes is a recommendation from the customs patrol officer. Administer prior to chemotherapy., Routine Given 04/03/2020 11:46 AM EST 130 mg CISplatin (PlatinoL) 79 mg in sodium chloride 0.9% 329 mL infusion 79 mg (rounded from 79.2 mg = 40 mg/m2/dose ? 1.98 m2 Treatment Plan BSA from Recorded weight), Intravenous, ONCE, 1 dose, On Fri04/03/20 at 1230, Administer over 60 Minutes, Warning Vesicant/Irritant Medication New Bag 04/03/2020 12:16 PM EST 79 mg 329 mL/hr dexamethasone (Decadron) injection 10 mg 10 mg, Intravenous, ONCE, 1 dose, On Fri04/03/20 at 1130, Administer prior to chemotherapy Given 04/03/2020 11:46 AM EST 10 mg heparin (pf) (porcine) (100 units/mL) flush 5 mL syringe 500 Units 500 Units, Intravenous, ONCE PRN, Starting on Fri04/03/20 at 1105, Until Fri04/03/20 at 1546, Line Care, Refer to Intravenous (IV) Procedure: Accessing Implanted Vascular Access Devices (654) procedure and/or Intravenous (IV) Job Aid: Adult Flushing & Catheter Care (0294) job aid for additional information regarding guidelines and administration., Routine Given 04/03/2020 1:34 PM EST 500 Units palonosetron (Aloxi) (0.25 mg/mL) injection 0.25 mg 0.25 mg, Intravenous, ONCE, 1 dose, On Fri04/03/20 at 1130, Administer over 30 seconds. Administer prior to chemotherapy, Routine Given 04/03/2020 11:46 AM EST 0.25 mg sodium chloride 0.9 % (flush) flush 5-20 mL 5-20 mL, Intravenous, EVERY 1 MIN PRN, Starting on Fri04/03/20 at 1105, Until Fri04/03/20 at 1546, Line Care, Flush pertains to all indwelling lines. Flush per protocol found in the job aid using the link provided on this medication record. Refer to Intravenous (IV) Job Aid: Adult Flushing & Catheter Care (1930) job aid for additional information regarding guidelines and administration., Routine Given 04/03/2020 1:33 PM EST 20 mLs sodium chloride 0.9% infusion 1,000 mL, at 1,000 mL/hr, Intravenous, CONTINUOUS, Starting on Fri04/03/20 at 1130, Until Fri04/03/20 at 1229, Pre-CISplatin New Bag 04/03/2020 11:20 AM EST 1,000 mLs 1000 mL/hr sodium chloride 0.9% infusion 500 mL, at 500 mL/hr, Intravenous, CONTINUOUS, Starting on Fri04/03/20 at 1330, Until Fri04/03/20 at 1429, Post CISplatin New Bag 04/03/2020 12:37 PM EST 500 mLs 500 mL/hr documented in this encounter Care Teams Hot Box Spotter Relationship Specialty Start Date End Date Tiny Walters APRN [address] [place] [phone] PCP - General Family Medicine 12/01/19 04/07/24 documented as of this encounter
--- OUTSIDE RECORDS SUMMARY | 2024-05-31 01:25 | XMS_ITS | Encounter Summary ---
Author Organization [facility] Address [facility] [place] [address] Care Team Providers Care Activity Manager Name Role Phone Tiny Walters APRN Primary Care Provider +1- [phone] Encounter Details Date Type Department Care Team (Late st Contact Info) Description 04/12/2020 9:00 AM EST Office Visit Radiation Oncology at [address] [phone] Jose Martin Rae MD [facility] [place] [address] Tonsil cancer Social History Tobacco Use Types [...] Sign Reading Time Taken Comments Blood Pressure 107/77 04/12/2020 9:09 AM EST Pulse 86 04/12/2020 9:09 AM EST Temperature 37.1 ??C (98.8 ??F) 04/12/2020 9 :09 AM EST Respiratory Rate 18 04/12/2020 9:09 AM EST Oxygen Saturation 100% 04/12/2020 9:0 9 AM EST Inhaled Oxygen Concentration - - Weight 75.1 kg (165 lb 9.6 oz) 04/12/20 20 9:09 AM EST with boots Height - - Body Mass Index 25.84 04/11/2020 10:00 AM EST documented in this encounter Progress Notes * Jose Martin Rae MD - 04/12/2020 9:00 AM EST ON TREATMENT VISIT NOTE Zen Pickering is a 39 y.o. 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 Definitive chemoradiotherapy. Current treatment dose: 62 Gy in 31 fractions. Anticipated total dose: 70 Gy in [...] PORT films have been reviewed, please see ARIA for details. Intercurrent History: infection resolved Changes in medical condition Pain: Odynophagia, 7-8/10, worse with dryness / swallowing; not requiring BMX or medications at this time Secretions/Dryness: severe dysgeusia; significant xerostomia / thick secretions. Using BSSW, Mucinex, suction Nutrition: able to tolerate liquids, gagging limits intake of solids G tube: tolerating tube feeds; 5x/day Swallowing Function: minimal coughing / choking Skin: itching / burning intermittently; using MG cream GI: -N/V: mild nausea; using compazine -Bowels: tendency towards looseness Nutrition Assessment: Weight : 80.1 kg initial Change: 76.7 kg => 75.1 kg Objective: Vitals: 04/12/20 0909 BP: 107/77 Pulse: 86 Resp: 18 Temp: 37.1 ??C (98.8 ??F) TempSrc: Temporal SpO2: 100% Weight: 75.1 kg (165 lb 9.6 oz) SKIN: mild skin erythema MUCOSA: patchy mucositis posterior oropharynx Assessment: High level toxicity with severe dysgeusia, xerostomia/thick secretions, and minimal weight loss CTCAE TOXICITY GRADES (see below for corrales): Site Grade Skin 1 Xerostomia 3 Pharyngeal Mucositis 1 Dysphagia 1 Hoarseness 0 TREATMENT RESPONSE: No change Plan: ?? Continue RT per prescription ?? Pain control: ?? OTC medications ?? BMX prn ?? ADD Neurontin ?? Skin: Jeans cream prn ?? Mucositis: ?? Pain control: see above ?? Oral hygiene consisting of baking soda/salt rinse at least 8 times daily ?? Mucinex prn for thick secretions ?? Suction ?? Alimentation: adjunct instructor chemistry following ?? Weight slightly decreased, all nutrition via G tube due [...] EST Office Visit Hematology/Oncolog y at [address] [phone] Tej Tipton MD [address] [facility] HEMATOLOGY & [place] [address] Stacy Valle APRN [facility] [place] [address] 06/01/2024 10:30 AM EST Scheduled View Only [place] [phone] 06/01/2024 11:00 AM EST Office Visit [place] [phone] Luis E Chin MD [facility] [place] [address] 06/04/2024 8:30 AM EST Hospital Encounter [place] [phone] Rayshawn Suresh MD [facility] [place] [address] 06/04/2024 8:30 AM EST - 06/04/2024 1:05 PM EST Surgery [place] [phone] Rayshawn Suresh MD [facility] [place] [address] @THORACOSCOPY, SURG; W PLEURODESIS (WRVU 10.83) Scheduled [...] tonsil documented in this encounter Care Teams Activity Manager Relationship Specialty Start Date End Date Tiny Walters, BATSHEVA [address] [place] [phone] PCP - General Family Medicine 12/01/19 04/07/24 documented as of this encounter
--- OUTSIDE RECORDS SUMMARY | 2024-05-31 01:25 | XMS_ITS | Encounter Summary ---
Author Organization [facility] Address [facility] [place] [address] Care Team Providers Care Clinical Assistant Name Role Phone Tiny Walters APRN Primary Care Provider +1- [phone] Encounter Details Date Type Department Care Team (Late st Contact Info) Description 04/10/2020 1:30 PM EST Office Visit Hematology/Oncology at [address] [phone] Tonsil cancer [...] Progress Notes * Tonya Machado RD - 04/10/2020 1:30 PM EST [facility] Dietitian Follow Up Seen By: Tonya Machado RD LD Referred by: HN team Reason for visit: g-tube teach Patient and diagnosis: Zen Pickering is a 39-year-old man with 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 Patient is receiving concurrent chemo/RT. HPI: Patient Active Problem List Diagnosis Code ??? 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 Raynaud's syndrome I73.00 ??? Gastrostomy tube in place Z93.1 ??? Dysphagia, oropharyngeal phase R13.12 ??? Aspiration pneumonia of right lower lobe J69.0 ??? Dehydration E86.0 Meds: reviewed Labs: reviewed, magnesium 1.7, creatinine 1.11 Estimated body mass index is 25.56 kg/m?? as calculated from the following: Height as of an earlier encounter on 04/10/20: 170.5 cm (5' 7.13). Weight as of an earlier encounter on 04/10/20: 74.3 kg (163 lb 12.8 oz). Wt Readings from Last 3 Encounters: 04/10/20 74.3 kg (163 lb 12.8 oz) 04/06/20 74.6 kg (164 lb 6.4 oz) 04/05/20 76.7 kg (169 lb) Previous weights: 03/16/20: 170 lbs 02/16/20: 180 lbs 02/11/20: 179 lbs Wt Hx: UBW: % UBW: IBW: +/- 10% % IBW: ___ Edema ___ Ascites ___Muscle wasting Calories: 2412-6276 (30-35 kcal/kg) Protein: 120 grams (1.5 g/kg) Fluid: 2.5 L Nutrition Assessment: Enteral Nutrition: G-tube placed 02/10 by IR - 16 Prydeinig balloon retained g-tube Trial of [employer] [place] 1.5 last week with improved tolerance to increasing volume. Reports using 4-5 cartons per day of this formula. Each carton provides 500 calories and 24 grams protein. Goal of 5 cartons per day to provide 2500 calories and 120 grams protein. Food Intake: no oral intake at this time; water more difficult as well d/t phlegm. Working on increasing water flushes via g-tube. Teas, vitamins, or other nutritional supplements: n/a Food allergies or avoidances: denies Appetite: fair Nausea: occasional Vomiting: n/a Chewing: denies difficulty Dentition: wisdom teeth removed recently Swallowing: difficulty, sore throat; increased phlegm Taste Changes: +bland Bowels: Food availability/purchasing, meal planning and preparation: Social Support: ; 3 children at home Physical Activity: Anticipated adherence/understanding: good Nutrition Diagnosis: New g-tube placement in anticipation of starting treatment for recently diagnosed HN cancer. Nutrition Intervention: ? Increase caloric needs ? Modify diet consistency: as tolaterated ? Enteral Nutrition: improved tolerance and increased caloric intake with switch to [place] [place] 1.5 - continue to work to goal of 5 cartons per day ? Provided additional donated formula/supplies (unopened, unexpired) Monitoring and Evaluation: Will follow up weekly during treatment. documented in this encounter Plan of Treatment Upcoming Encounters Date Type Department Care Team (Late st Contact Info) Description 05/31/2024 11:30 AM EST Office Visit Hematology/Oncolog y at [address] [phone] Tej Tipton MD [address] [facility] HEMATOLOGY & [place] [address] Stacy Valle APRN [facility] [place] [address] 06/01/2024 10:30 AM EST Scheduled View [place] [address] 06/01/2024 11:00 AM EST Office [place] [phone] Luis E Chin MD [facility] [place] [address] 06/04/2024 8:30 AM EST Hospital Encounter Main [place] [address] Rayshawn Suresh MD [facility] [place] [address] 06/04/2024 8:30 AM EST - 06/04/2024 1:05 PM EST Surgery Main [place] [address] Rayshawn Suresh MD [facility] [place] [address] @THORACOSCOPY, SURG; W PLEURODESIS (WRVU 10.83) Scheduled [...] tonsil documented in this encounter Care Teams Clinical Assistant Relationship Specialty Start Date End Date Tiny Walters, BATSHEVA [address] [place] [phone] PCP - General Family Medicine 12/01/19 04/07/24 documented as of this encounter
--- OUTSIDE RECORDS SUMMARY | 2024-05-31 01:25 | XMS_ITS | Encounter Summary ---
Author Organization [facility] Address [facility] [place] [address] Care Team Providers Care Wood Sash And Frame Carpenter Name Role Phone Tiny Walters APRN Primary Care Provider +1- [phone] Reason for Visit * Reason Comments IV Medication Hydration * Treatment/Therapy Plan Authorization (Routine) - Closed Specialty Diagnoses / Procedures Referred By Contac t Referred To Contact Diagnoses Tonsil cancer Dehydration Drug-induced nausea and vomiting Procedures TC PALONOSETRON HCL, 25MCG, INJECTION (ALOXI) TC APREPITANT, 1 MG, INJECTION TC CISPLATIN, POWDER OR SOLUTION, 10MG, INJECTION Gume Christy MD [address] [place] [address] [place] [address] [facility] Hem Onc Infusion [address] [place] [phone] Referral ID Status Reason Start Date Expiration Date Visits Re quested Visits Authorized [id number] Closed 01/24/2020 04/17/2021 30 0 Encounter Details Date Type Department Care Team (Late st Contact Info) Description 05/01/2020 11:00 AM EST Infusion Hematology Oncology at [address] [phone] Drug-induced nausea and vomiting; Dehydration; Tonsil cancer Social History Tobacco Use Types [...] as of this encounter Progress Notes * Elke Toledo RN - 05/01/2020 11:00 AM EST INFUSION THERAPY ADMINISTRATION NOTES DIAGNOSIS: Head/Neck CA (tonsil) REASON FOR VISIT: Hydration SUBJECTIVE Zen offers no complaints. States started feeling better around Friday of last week. Declinedprn zofran OBJECTIVE LAB DATA: N/A REACTIONS (DESCRIPTION, TIME, INTERVENTION AND EFFECTIVENESS)none ASSESSMENT Zen was awake, alert and he tolerated treatment well. Port flushed with 20 ml NS and 500 units Heparin then de accessed PLAN Return to clinic per routine. documented in this encounter Plan of Treatment Upcoming Encounters Date Type Department Care Team (Late st Contact Info) Description 05/31/2024 11:30 AM EST Office Visit Hematology/Oncolog y at [address] [phone] Tej Tipton MD [facility] [place]note 2][address] [facility] [address] HEMATOLOGY [place] [address] Stacy Valle APRN [facility] [place] [address] 06/01/2024 10:30 AM EST Scheduled View [place] [phone] 06/01/2024 11:00 AM EST Office [place] [phone] Luis E Chin MD [facility] [place] [address] 06/04/2024 8:30 AM EST Hospital Encounter [place] [phone] Rayshawn Suresh MD [facility] [place] [address] 06/04/2024 8:30 AM EST - 06/04/2024 1:05 PM EST Surgery [place] [address] Rayshawn Suresh MD [facility] [place] [address] @THORACOSCOPY, SURG; W PLEURODESIS (WRVU 10.83) Scheduled Procedures Name Priority Associated Diagnoses Date/Ti me @THORACOSCOPY, SURG; W PLEURODESIS (WRVU 10.83) metastatic pleural effusion 06/04/2024 8:30 AM EST BRONCHOSCOPY, DIAGNOSTIC (WRVU 2.53) metastatic pleural effusion 06/04/2024 8:30 AM EST DIONNA\ALMA.CATHETER,TUNNELED, WITH SQ PORT OR PUMP OVER 5YR (WRVU 5.79) metastatic pleural effusion 06/04/2024 8:30 AM EST documented as of this encounter Visit Diagnoses Diagnosis Drug-induced nausea and vomiting Nausea with vomiting Dehydration Tonsil cancer Malignant neoplasm of tonsil documented in this encounter Administered Medications Inactive Administered Medications - up to 3 most recent administrations Medication Order MAR Action Action Date Dose Rate Site sodium chloride 0.9% infusion 1,000 mL (1 L), Intravenous, ONCE, 1 dose, On 05/01/20 at 1200 New Bag 05/01/2020 11:30 AM EST 1,000 mLs documented in this encounter Care Teams Wood Sash [employer] Carpenter Relationship Specialty Start Date End Date Tiny Walters APRN [address] [place] [phone] PCP - General Family Medicine 12/01/19 04/07/24 documented as of this encounter
--- OUTSIDE RECORDS SUMMARY | 2024-05-31 01:25 | XMS_ITS | Encounter Summary ---
Author Organization [facility] Address [facility] [place] [address] Care Team Providers Care Interlibrary Loan Services Librarian Name Role Phone Tiny Walters APRN Primary Care Provider +1- [phone] Reason for Visit * Reason Comments IV Medication Hydration * Treatment/Therapy Plan Authorization (Routine) - Closed Specialty Diagnoses / Procedures Referred By Contac t Referred To Contact Diagnoses Tonsil cancer Dehydration Drug-induced nausea and vomiting Procedures TC PALONOSETRON HCL, 25MCG, INJECTION (ALOXI) TC APREPITANT, 1 MG, INJECTION TC CISPLATIN, POWDER OR SOLUTION, 10MG, INJECTION Gume Christy MD [address] [place] [address] [place] [address] [facility] Hem Onc Infusion [address] [place] [phone] Referral ID Status Reason Start Date Expiration Date Visits Re quested Visits Authorized [id number] Closed 01/24/2020 04/17/2021 30 0 Encounter Details Date Type Department Care Team (Late st Contact Info) Description 04/26/2020 10:00 AM EST Infusion Hematology Oncology at [address] [phone] Dehydration; Tonsil cancer; Drug-induced nausea and vomiting Social History Tobacco Use Types Packs/Day Years Used Date Smoking Tobacco: Never Smokeless Tobacco: Never Alcohol Use Standard Drinks/Week Comments Yes 1 (1 standard drink = 0.6 oz pur e alcohol) Sex and Gender Information Value Date Recorded Sex Assigned at Not on file Gender Identity Not on file Sexual Orientation Not on file documented as of this encounter Progress Notes * Jessica Jaeger RN - 04/26/2020 10:00 AM EST INFUSION THERAPY ADMINISTRATION NOTES DIAGNOSIS: Head & Neck CA REASON FOR VISIT: Hydration SUBJECTIVE Mr. Pickering is here for hydration today following his appointment with Dr. Rae in radiation oncology. He is doing better today than Friday. He is suctioning as needed. He complains of mild nausea and requests IV Zofran ordere prn. OBJECTIVE Pre administration: Orders independently verified for drug name, route, and dosage Vishal Jaeger RN and pharmacist on-site. REACTIONS (DESCRIPTION, TIME, INTERVENTION AND EFFECTIVENESS) none ASSESSMENT Mr. Pickering was awake, alert and he tolerated treatment well. PLAN Return to clinic on Monday 05/[address] Christy. Patient was reminded to call in the interimwith any questions/concerns. documented in this encounter Plan of Treatment Upcoming Encounters Date Type Department Care Team (Late st Contact Info) Description 05/31/2024 11:30 AM EST Office Visit Hematology/Oncolog y at [address] [phone] Tej Tipton MD [address] [facility] [address] HEMATOLOGY [place] [address] Stacy Valle APRN [facility] [place] [address] 06/01/2024 10:30 AM EST Scheduled View Only [place] [phone] 06/01/2024 11:00 AM EST Office Visit [place] [phone] Luis E Chin MD [facility] [place] [address] 06/04/2024 8:30 AM EST Hospital Encounter [place] [address] Rayshawn Suresh MD [facility] [place] [address] 06/04/2024 8:30 AM EST - 06/04/2024 1:05 PM EST Surgery [place] [address] Rayshawn Suresh MD [facility] [place] [address] @THORACOSCOPY, SURG; W PLEURODESIS (WRVU 10.83) Scheduled Procedures Name Priority Associated Diagnoses Date/Ti me @THORACOSCOPY, SURG; W PLEURODESIS (WRVU 10.83) metastatic pleural effusion 06/04/2024 8:30 AM EST BRONCHOSCOPY, DIAGNOSTIC (WRVU 2.53) metastatic pleural effusion 06/04/2024 8:30 AM EST DIONNA\ALMA.CATHETER,TUNNELED, WITH SQ PORT OR PUMP OVER 5YR (WRVU 5.79) metastatic pleural effusion 06/04/2024 8:30 AM EST documented as of this encounter Visit Diagnoses Diagnosis Dehydration Tonsil cancer Malignant neoplasm of tonsil Drug-induced nausea and vomiting Nausea with vomiting documented in this encounter Administered Medications Inactive Administered Medications - up to 3 most recent administrations Medication Order MAR Action Action Date Dose Rate Site ondansetron (pf) (Zofran) (2 mg/mL) injection 8 mg 8 mg, Intravenous, ONCE PRN, 1 dose, Starting on Fri04/26/20 at 1043, Until Fri04/26/20 at 1057, Nausea, if ongoing nausea Given 04/26/2020 10:57 AM EST 8 mg sodium chloride 0.9% infusion 1,000 mL (1 L), Intravenous, DAILY, 1 dose, First dose on Fri04/26/20 at 1100 New Bag 04/26/2020 10:52 AM EST 1,000 mLs documented in this encounter Care Teams Interlibrary Loan Services Librarian Relationship Specialty Start Date End Date Tiny Walters APRN [address] [place] [phone] PCP - General Family Medicine 12/01/19 04/07/24 documented as of this encounter
--- OUTSIDE RECORDS SUMMARY | 2024-05-31 01:25 | XMS_ITS | Encounter Summary ---
Author Organization [facility] Address [facility] [place] [address] Care Team Providers Care Theater Usher Name Role Phone Tiny Walters APRN Primary Care Provider +1- [phone] Reason for Visit * Reason Comments IV Medication IV hydration and ant i emetics * Treatment/Therapy Plan Authorization (Routine) - Closed Specialty Diagnoses / Procedures Referred By Contac t Referred To Contact Diagnoses Tonsil cancer Dehydration Drug-induced nausea and vomiting Procedures TC PALONOSETRON HCL, 25MCG, INJECTION (ALOXI) TC APREPITANT, 1 MG, INJECTION TC CISPLATIN, POWDER OR SOLUTION, 10MG, INJECTION Gume Christy MD [address] [place] [address] [place] [address] [facility] Hem Onc Infusion [address] [place] [phone] Referral ID Status Reason Start Date Expiration Date Visits Re quested Visits Authorized [id number] Closed 01/24/2020 04/17/2021 30 0 Encounter Details Date Type Department Care Team (Late st Contact Info) Description 04/06/2020 12:00 PM EST Infusion Hematology Oncology at [address] [phone] Dehydration; Tonsil cancer Social History Tobacco Use [...] Sign Reading Time Taken Comments Blood Pressure 138/74 04/06/2020 12:04 PM EST Pulse 76 04/06/2020 12:04 PM EST Temperature 36.2 ??C (97.1 ??F) 04/06/2020 12:[address] Respiratory Rate 18 04/06/2020 12:04 PM EST Oxygen Saturation 100% 04/06/2020 12:04 PM EST Inhaled Oxygen Concentration - - Weight 74.6 kg (164 lb 6.4 oz) 04/06/2020 12:04 PM EST Height 170.5 cm (5' 7.13) 04/06/2020 12:[address] Body Mass Index 25.65 04/06/2020 12:04 PM EST documented in this encounter Progress Notes * Nik Power RN - 04/06/2020 12:00 PM EST INFUSION THERAPY ADMINISTRATION NOTES DIAGNOSIS: Tonsillar cancer CYCLE #: Cycle 1, Day 39 - hydration and antiemetics REASON FOR VISIT: To receive hydration SUBJECTIVE: Zen offers no complaints. OBJECTIVE: VSS. IV ACCESS: Port accessed on adm, flushes readily with brisk blood return. Pre administration: Chemotherapy orders independently verified for drug name, route, and dosage per patient's height, weight and BSA by NIK POWER, ARIK and Hao De [facility]. REACTIONS (DESCRIPTION, TIME, INTERVENTION AND EFFECTIVENESS) none ASSESSMENT: Zen was awake, alert and tolerated treatment well. Port flushed with 20 cc's of NS and 500 units of heparin and de-accessed. PLAN: Return to clinic per routine. documented in this encounter Plan of Treatment Upcoming Encounters Date Type Department Care Team (Late st Contact Info) Description 05/31/2024 11:30 AM EST Office Visit Hematology/Oncolog y at [address] [phone] Tej Tipton MD [address] [facility] HEMATOLOGY [place] [address] Stacy Valle APRN [facility] [place] [address] 06/01/2024 10:30 AM EST Scheduled View Only Radiation Oncology at [place] [phone] 06/01/2024 11:00 AM EST Office [place] [address] Luis E Chin MD [facility] [place] [address] 06/04/2024 8:30 AM EST Hospital Encounter [place] [phone] Rayshawn Suresh MD [facility] [place] [address] 06/04/2024 8:30 AM EST - 06/04/2024 1:05 PM EST Surgery [place] [phone] Rayshawn Suresh MD [facility] [place] [address] @THORACOSCOPY, SURG; W PLEURODESIS (WRVU 10.83) Scheduled [...] MAR Action Action Date Dose Rate Site dexamethasone (Decadron) injection 5.2 mg 5.2 mg (rounded from 5 mg), Intravenous, ONCE, 1 dose, On Ambreen 04/06/20 at 1200 Given 04/06/2020 12:18 PM EST 5.2 mg heparin (pf) (porcine) (100 units/mL) flush 5 mL syringe 500 Units 500 Units, Intravenous, ONCE PRN, Starting on Ambreen 04/06/20 at 0829, Until Ambreen 04/06/20 at 1613, Line Care, Refer to Intravenous (IV) Procedure: Accessing Implanted Vascular Access Devices (654) procedure and/or Intravenous (IV) Job Aid: Adult Flushing & Catheter Care (3684) job aid for additional information regarding guidelines and administration., Routine Given 04/06/2020 1:25 PM EST 500 Units ondansetron (Zofran) 16 mg in sodium chloride 0.9% 58 mL infusion 16 mg 16 mg, Intravenous, ONCE, 1 dose, On Ambreen 04/06/20 at 1230, Administer over 15 Minutes New Bag 04/06/2020 12:09 PM EST 16 mg 232 mL/hr sodium chloride 0.9 % (flush) flush 5-20 mL 5-20 mL, Intravenous, EVERY 1 MIN PRN, Starting on Ambreen 04/06/20 at 0829, Until Ambreen 04/06/20 at 1613, Line Care, Flush pertains to all indwelling lines. Flush per protocol found in the job aid using the link provided on this medication record. Refer to Intravenous (IV) Job Aid: Adult Flushing & Catheter Care (4032) job aid for additional information regarding guidelines and administration., Routine Given 04/06/2020 1:25 PM EST 20 mLs sodium chloride 0.9% infusion 1,000 mL, at 1,000 mL/hr, Intravenous, CONTINUOUS, Starting on Ambreen 04/06/20 at 1200, Until Ambreen 04/06/20 at 1259 New Bag 04/06/2020 12:09 PM EST 1,000 mLs 1000 mL/hr documented in this encounter Care Teams Theater Usher Relationship Specialty Start Date End Date Tiny Walters APRN [address] [place] [phone] PCP - General Family Medicine 12/01/19 04/07/24 documented as of this encounter
--- OUTSIDE RECORDS SUMMARY | 2024-05-31 01:25 | XMS_ITS | Encounter Summary ---
Author Organization [facility] Address [facility] [place] [address] Care Team Providers Care Regulatory Assistant Name Role Phone Tiny Walters APRN Primary Care Provider +1- [phone] Encounter Details Date Type Department Care Team (Late st Contact Info) Description 05/01/2020 11:45 AM EST Office Visit Hematology/Oncology at [address] [phone] Gume Christy MD [address] [place] [address] [place] [address] Tonsil cancer; Dehydration Social History Tobacco Use Types Packs/Day Years [...] Sign Reading Time Taken Comments Blood Pressure 120/74 05/01/2020 11:10 AM EST Pulse 96 05/01/2020 11:10 AM EST Temperature 37.6 ??C (99.7 ??F) 05/01/2020 11:[address] Respiratory Rate 16 05/01/2020 11:10 AM EST Oxygen Saturation 100% 05/01/2020 11:10 AM EST Inhaled Oxygen Concentration - - Weight 72.8 kg (160 lb 9.6 oz) 05/01/2020 11:10 AM EST Height 170.5 cm (5' 7.13) 05/01/2020 11:[address] Body Mass Index 25.06 05/01/2020 11:10 AM EST documented in this encounter Progress Notes * Gume Christy MD - 05/01/2020 11:45 AM EST Hematology/Oncology Clinic [facility] Patient Active Problem List Diagnosis ??? 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 Odynophagia, progressing to R otalgia, headache, trismus Summer 2019; large R tonsil non-ker SCCa extending to intrinsic tongue, pterygoids, FOM; nonpalable bilateral adenopathy B. Definitive chemoradiation (weekly cisplatin) instituted 02/29/2020; course c/b RLL pneumonia 03/21/2020; completed 04/19/2020, cumulative cisplatin 280 mg/m2 ??? Drug-induced nausea and vomiting ??? Choking due to phlegm in larynx ??? Dehydration ??? Aspiration pneumonia of right lower lobe ??? Dysphagia, oropharyngeal phase ??? Gastrostomy tube in place Balloon-retained (5 mL inflation), 16 Fr, placed by [facility] IR 02/11/2020 ??? Raynaud's syndrome Med Onc checkup. Just short of 2 weeks from completion of treatment. No major problems since last week's visit. We discontinue the oxycodone and put him back on gabapentin, 300 mg 3 times daily, for mucositis pain. The nausea he was troubled with has resolved, and thus it was likely due to the oxycodone. The gabapentin is well-tolerated and has controlled his mucositis pain well; he has most discomfort in the morning after a longer gap in the medication. He still bothered by copious phlegm, still keeps his portable suction machine handy at all times. He is trying to keep up with hydration through the G-tube, but feels a bit behind today and thus he is getting a liter of intravenous fluid. His feeding tube is working fine and he is tolerating the tube feedings. Bowels still need MiraLAX occasionally. His energy level is still down, but is beginning to recover. He was out with the snowblower brieflyyesterday, enjoyed being able to do some normal activity but was quite exhausted afterwards. 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 Trismus is still present but he has been working on forcing the jaw open a bit more day by day. Thepain in the jaw with opening is less than prior to starting therapy. He tried taking a small bite of meat, just because of his mental craving to eat and taste some normal food. He was able to swallow this with very extensive chewing; he still has no taste sensation whatsoever. Physical exam: He looks well. Voice is clear. Vitals are satisfactory; heart rate 96. Oral exam shows mild xerostomia. Interincisor distance is greater by few millimeters, approximately2.5 cm interincisor distance today. There is residual 1 x 1.5 cm patch of exudative mucositis on the ventral tongue, smaller than last week. I see no obvious tumor remaining in the right tonsillar fossa. The tongue still deviates slightly to the right. Neck exam shows good skin recovery. No palpable adenopathy. Lungs clear Mediport site is nontender Cardiac exam is normal Abdomen is benign, no hepatosplenomegaly, G-tube site clean Extremities are normal Neurologic exam is normal for motor and sensory function, cranial nerves normal. No labs done today. 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 He is beginning to recover from the very toxic effects of treatment. Copious phlegm remains his biggest problem. The nausea that bothered him after completing treatment appears to have been due to oxycodone. He is still slightly dehydrated, probably from a mixture of subopt imal intake and excessive phlegm expectoration. Plan: 1 L IV normal saline given in clinic today. Continue other supportive care. Encouraged him tocontinue the gabapentin for pain control, but suggested that he can try to taper the dose as tolerated. Continue tube feedings. He has follow-up appointments with Dr. Pacheco and with Carrie Jacob SLPnext week. He may benefit from a Therabite device. We talked again about the frustration all patients experience during this very slow recovery phase.I encouraged him to keep getting as much exercise as he can tolerate, but warned him that his exercise tolerance will be shockingly limited. I will request a follow-up visit for approximately 1 month. Mediport flush at that visit. Gume Christy MD, FACP chief fundraising officer Hematology/Oncology Section [facility]/[address] [address] Voice recognition software used for this note; please excuse health outreach worker errors. I personally reviewed past medical, surgical, family medical histories, reviewed current medications, vital signs, labs, and performed full review of systems. These are documented below the narrativefor clarity and succinctness. Outpatient Medications Marked as Taking for the 05/01/20 encounter (Office Visit) with Gume Christy MD Medication Sig Dispense Refill ??? gabapentin (Neurontin) 250 mg/5 mL Solution By mouth: 5 ml 1st day once, then 5 ml twice a day x 2 days, then 5 ml three times a day 470 mL 1 ??? polyethylene glycoL (Miralax) 17 gram/dose Powder Take 17 g by mouth daily. ??? albuteroL 90 mcg/actuation HFA Aerosol Inhaler Inhale 2 puffs into the lungs every 4 hours as needed for Wheezing. Use with spacer Review of Systems: Review of systems is negative for other HARDWARE PRESS OPERATOR, bone, pulmonary, cardiac, GI, , extremity, neurologic, endocrine, skin, constitutional, emotional, or functional problems. Vitals Office Visit from 05/01/2020 in Hematology/Oncology at [facility] Weight 72.8 kg (160 lb 9.6 oz) Height 170.5 cm (5' 7.13) BSA (Calculated - sq m) 1.86 sq meters BMI (Calculated) 25.06 Temp 37.6 ??C (99.7 ??F) Temp src Temporal Heart Rate 96 Heart Rate Source SaO2 Resp 16 BP 120/74 SpO2 100 % Karnofsky Score 80 Body surface area is 1.86 meters squared. Wt Readings from Last 3 Encounters: 05/01/20 72.8 kg (160 lb 9.6 oz) 04/26/20 73.5 kg (162 lb) 04/24/20 72.8 kg (160 lb 6.4 oz) No results found for this or any previous visit (from the past 72 hour(s)). ++++++++++++++++++++++++++++++++++++++++++++++++++++ documented in this encounter Plan of Treatment Upcoming Encounters Date Type Department Care Team (Late st Contact Info) Description 05/31/2024 11:30 AM EST Office Visit Hematology/Oncolog y at [address] [phone] Tej Tipton MD [address] [facility] [address] [place]ATOLOGY [place] [address] Stacy Valle APRN [facility] [place] [address] 06/01/2024 10:30 AM EST Scheduled View [place] [phone] 06/01/2024 11:00 AM EST Office [place] [phone] Luis E Chin MD [facility] [place] [address] 06/04/2024 8:30 AM EST Hospital Encounter [place] [phone] Rayshawn Suresh MD [facility] [place] [address] 06/04/2024 8:30 AM EST - 06/04/2024 1:05 PM EST Surgery [place] [phone] Rayshawn Suresh MD [facility] [place] [address] @THORACOSCOPY, SURG; W PLEURODESIS (WRVU 10.83) Scheduled [...] Diagnosis Tonsil cancer Malignant neoplasm of tonsil Dehydration documented in this encounter Care Teams Regulatory Assistant Relationship Specialty Start Date End Date Tiny Walters, CIVIL SERVICE CLERK [address] [place] [phone] PCP - General Family Medicine 12/01/19 04/07/24 documented as of this encounter
--- OUTSIDE RECORDS SUMMARY | 2024-05-31 01:25 | XMS_ITS | Encounter Summary ---
Author Organization [facility] Address [facility] [place] [address] Care Team Providers Care Hotel Receptionist Name Role Phone Tiny Walters APRN Primary Care Provider +1- [phone] Reason for Visit * Reason Comments IV Medication Hydration * Treatment/Therapy Plan Authorization (Routine) - Closed Specialty Diagnoses / Procedures Referred By Contac t Referred To Contact Diagnoses Tonsil cancer Dehydration Drug-induced nausea and vomiting Procedures TC PALONOSETRON HCL, 25MCG, INJECTION (ALOXI) TC APREPITANT, 1 MG, INJECTION TC CISPLATIN, POWDER OR SOLUTION, 10MG, INJECTION Gume Christy MD [address] [place] [address] [place] [address] [facility] Hem Onc Infusion [address] [place] [phone] Referral ID Status Reason Start Date Expiration Date Visits Re quested Visits Authorized [id number] Closed 01/24/2020 04/17/2021 30 0 Encounter Details Date Type Department Care Team (Late st Contact Info) Description 04/20/2020 10:00 AM EST Infusion Hematology Oncology at [address] [phone] Dehydration; Tonsil cancer Social History [...] Sign Reading Time Taken Comments Blood Pressure 166/82 04/20/2020 10:11 AM EST Pulse 77 04/20/2020 10:11 AM EST Temperature - - Respiratory Rate - - Oxygen Saturation - - Inhaled Oxygen Concentration - - Weight - - Height - - Body Mass Index - - documented in this encounter Progress Notes * Elke Toledo RN - 04/20/2020 10:00 AM EST INFUSION THERAPY ADMINISTRATION NOTES DIAGNOSIS: Head/Neck CA (tonsil) REASON FOR VISIT: Hydration SUBJECTIVE Zen offers no complaints. States pain is controlled at a level of 3/10. Took pain med at home OBJECTIVE LAB DATA: N/A REACTIONS (DESCRIPTION, TIME, INTERVENTION AND EFFECTIVENESS)none ASSESSMENT Zen was awake, alert and he tolerated treatment well. Port flushed with 20 ml NS and 5oo units Heparin then de accessed PLAN Return to clinic per routine. documented in this encounter Plan of Treatment Upcoming Encounters Date Type Department Care Team (Late st Contact Info) Description 05/31/2024 11:30 AM EST Office Visit Hematology/Oncolog y at [address] [phone] Tej Tipton MD [address] [facility] [address] HEMATOLOGY [place] [address] Stacy Valle APRN [facility] [place] [address] 06/01/2024 10:30 AM EST Scheduled View Only [place] [address] 06/01/2024 11:00 AM EST Office Visit [place] [phone] Luis E Chin MD [facility] [place] [address] 06/04/2024 8:30 AM EST Hospital Encounter [place] [address] Rayshawn Suresh MD [facility] [place] [address] 06/04/2024 8:30 AM EST - 06/04/2024 1:05 PM EST Surgery [place] [address] Rayshawn Suresh MD [facility] [place] [address] @THORACOSCOPY, SURG; W PLEURODESIS (WRVU 10.83) Scheduled [...] Dose Rate Site sodium chloride 0.9 % injection 1,000 mL 1,000 mL (1 L), Intravenous, Administer over 1 Hours, DAILY, 1 dose, First dose on Ambreen 04/20/20 at 1000, Routine New Bag 04/20/2020 10:19 AM EST 1,000 mLs documented in this encounter Care Teams Hotel Receptionist Relationship Specialty Start Date End Date Tiny Walters APRN [address] [place] [phone] PCP - General Family Medicine 12/01/19 04/07/24 documented as of this encounter
--- OUTSIDE RECORDS SUMMARY | 2024-05-31 01:25 | XMS_ITS | Encounter Summary ---
Author Organization [facility] [place] [address] Care Team Providers Care Account Engineer Name Role Phone Tiny Walters APRN Primary Care Provider +1- [phone] Reason for Visit * Reason Onset Date Comments Follow-up 03/30/2020 sunction machine Encounter Details Date Type Department Care Team (Late Contact Info) Description 03/30/2020 Telephone Hematology/Oncology at [address] [phone] Taniya Barajas RN Follow-up (sunction machine) Social History Tobacco Use Types Packs/Day Years [...] Telephone Encounter - Taniya Barajas RN - 03/30/2020 12:40 PM EST Spoke with [employer] in [place], [place] they have approved pt getting suction machine. They will be reaching out to pt today to set up time to get it. Zen updated on this information. documented in this encounter Plan of Treatment Upcoming Encounters Date Type Department Care Team (Late st Contact Info) Description 05/31/2024 11:30 AM EST Office Visit Hematology/Oncolog y at [address] [phone] Tej Tipton MD [address] [facility] [address] HEMATOLOGY [place] [address] Stacy Valle APRN [facility] [place] [address] 06/01/2024 10:30 AM EST Scheduled View Only Radiation Oncology at [place] [phone] 06/01/2024 11:00 AM EST Office Visit [place] [phone] Luis E Chin MD [facility] [place] [address] 06/04/2024 8:30 AM EST Hospital Encounter [place] [address] Rayshawn Suresh MD [facility] [place] [address] 06/04/2024 8:30 AM EST - 06/04/2024 1:05 PM EST Surgery [place] [address] Rayshawn Suresh MD [facility] [place] [address] @THORACOSCOPY, SURG; W PLEURODESIS (WRVU 10.83) Scheduled [...] on filedocumented in this encounter Care Teams Account Engineer Relationship Specialty Start Date End Date Tiny Walters APRN [address] [place] [phone] PCP - General Family Medicine 12/01/19 04/07/24 documented as of this encounter
--- OUTSIDE RECORDS SUMMARY | 2024-05-31 01:25 | XMS_ITS | Encounter Summary ---
Author Organization [facility] [place] [address] Care Team Providers Care Asbestos Worker Name Role Phone Tiny Walters APRN Primary Care Provider +1- [phone] Encounter Details Date Type Department Care Team (Late Contact Info) Description 03/29/2020 Orders Only Hematology [place] [address] Gume Christy MD [address] [place] [address] [place] [address] Aspiration pneumonia of right lower lobe, unspecified aspiration pneumonia type; Tonsil cancer Social History Tobacco Use Types [...] EST Office Visit Hematology/Oncolog y at [address] [phone] Tej Tipton MD [address] [facility] HEMATOLOGY & [place] [address] Stacy Valle APRN [facility] [place] [address] 06/01/2024 10:30 AM EST Scheduled View [place] [address] 06/01/2024 11:00 AM EST Office [place] [address] Luis E Chin MD [facility] [place] [address] 06/04/2024 8:30 AM EST Hospital Encounter [place] [phone] Rayshawn Suresh MD [facility] [place] [address] 06/04/2024 8:30 AM EST - 06/04/2024 1:05 PM EST Surgery [place] [phone] Rayshawn Suresh MD [facility] [place] [address] @THORACOSCOPY, SURG; W PLEURODESIS (WRVU 10.83) Scheduled [...] right lower lobe, unspecified aspiration pneumonia type Tonsil cancer Malignant neoplasm of tonsil documented in this encounter Care Teams Asbestos Worker Relationship Specialty Start Date End Date Tiny Walters APRN [address] [place] [phone] PCP - General Family Medicine 12/01/19 04/07/24 documented as of this encounter
--- OUTSIDE RECORDS SUMMARY | 2024-05-31 01:25 | XMS_ITS | Encounter Summary ---
Author Organization [facility] Address [facility] [place] [address] Care Team Providers Care Intermediate Project Manager Name Role Phone Tiny Walters APRN Primary Care Provider +1- [phone] Encounter Details Date Type Department Care Team (Late st Contact Info) Description 04/17/2020 2:00 PM EST Office Visit Hematology/Oncology at [address] [phone] Tonsil cancer [...] Progress Notes * Tonya Machado RD - 04/17/2020 2:00 PM EST [facility] Dietitian Follow Up Seen By: Tonya Machado RD LD Referred by: HN team Reason for visit: g-tube teach Patient and diagnosis: Zen Pickering is a 39-year-old man with 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 Patient is receiving concurrent chemo/RT. Final RT is 04/18. HPI: Patient Active Problem List Diagnosis Code ??? 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 Raynaud's syndrome I73.00 ??? Gastrostomy tube in place Z93.1 ??? Dysphagia, oropharyngeal phase R13.12 ??? Aspiration pneumonia of right lower lobe J69.0 ??? Dehydration E86.0 Meds: reviewed Labs: reviewed, sodium 133, creatinine 1.01 Estimated body mass index is 25.31 kg/m?? as calculated from the following: Height as of an earlier encounter on 04/17/20: 170.5 cm (5' 7.13). Weight as of an earlier encounter on 04/17/20: 73.6 kg (162 lb 3.2 oz). Wt Readings from Last 3 Encounters: 04/17/20 73.6 kg (162 lb 3.2 oz) 04/14/20 74.8 kg (164 lb 12.8 oz) 04/13/20 73.5 kg (162 lb) Previous weights: 03/16/20: 170 lbs 02/16/20: 180 lbs 02/11/20: 179 lbs Wt Hx: UBW: % UBW: IBW: +/- 10% % IBW: ___ Edema ___ Ascites ___Muscle wasting Calories: 5981-6549 (30-35 kcal/kg) Protein: 120 grams (1.5 g/kg) Fluid: 2.5 L Nutrition Assessment: Enteral Nutrition: G-tube placed 02/10 by IR - 16 [place] balloon retained g-tube Trial of [employer] 1.5 last week with improved tolerance to [...] throat; increased phlegm Taste Changes: +bland Bowels: no issues Food availability/purchasing, meal planning and preparation: Social Support: ; 3 children at home Physical Activity: Anticipated adherence/understanding: good Nutrition Diagnosis: New g-tube placement in anticipation of starting treatment for recently diagnosed HN cancer. Met with Janett to provide additional formula for patient while he was receiving hydration today. She notes patient had a difficult couple of days with increased throat pain. Phlegm continues to be challenging as well. She is assisting with feedings and reports patient has been able to increase to 5 cartons of the [employer] 1.5 formula. She has not heard back from insurance regarding TF formula/supply coverage, so continues to accept donated formula. She does still have 1-2 cases of Nutren 1.5 on hand as well. Nutrition Intervention: ? Increase caloric needs ? Modify diet consistency: as tolaterated ? Enteral Nutrition: improved tolerance and increased caloric intake with switch to [employer] 1.5 - continue to work to goal of 5 cartons per day ? Provided additional donated formula/supplies (unopened, unexpired) Monitoring and Evaluation: I will be out of the office on 04/24, but will follow up via phone next week. documented in this encounter Plan of Treatment Upcoming Encounters Date Type Department Care Team (Late st Contact Info) Description 05/31/2024 11:30 AM EST Office Visit Hematology/Oncolog y at [address] [phone] Tej Tipton MD [address] [facility] [address] HEMATOLOGY [place] [address] Stacy Valle APRN [facility] [place] [address] 06/01/2024 10:30 AM EST Scheduled View [place] [phone] 06/01/2024 11:00 AM EST Office [place] [phone] Luis E Chin MD [facility] [place] [address] 06/04/2024 8:30 AM EST Hospital Encounter [place] [address] Rayshawn Suresh MD [facility] [place] [address] 06/04/2024 8:30 AM EST - 06/04/2024 1:05 PM EST Surgery Main Operating Room [facility] [place] [address] Rayshawn Suresh MD [facility] [place] [address] @THORACOSCOPY, SURG; W PLEURODESIS (WRVU 10.83) Scheduled [...] tonsil documented in this encounter Care Teams Intermediate Project Manager Relationship Specialty Start Date End Date Tiny Walters APRN [address] [place] [phone] PCP - General Family Medicine 12/01/19 04/07/24 documented as of this encounter
--- OUTSIDE RECORDS SUMMARY | 2024-05-31 01:25 | XMS_ITS | Encounter Summary ---
Author Organization Formerly [facility], [facility] Address [facility] [place] [address] Care Team Providers Care Cnc Operator Machinist Name Role Phone Tiny Walters APRN Primary Care Provider +1- [phone] Reason for Visit * Reason Comments IV Medication Hydration * Treatment/Therapy Plan Authorization (Routine) - Closed Specialty Diagnoses / Procedures Referred By Contac t Referred To Contact Diagnoses Tonsil cancer Dehydration Drug-induced nausea and vomiting Procedures TC PALONOSETRON HCL, 25MCG, INJECTION (ALOXI) TC APREPITANT, 1 MG, INJECTION TC CISPLATIN, POWDER OR SOLUTION, 10MG, INJECTION Gume Christy MD [address] [place] [address] [place] [address] [facility] [place] Hem Onc Infusion [address] [place] [phone] Referral ID Status Reason Start Date Expiration Date Visits Re quested Visits Authorized [id number] Closed 01/24/2020 04/17/2021 30 0 Encounter Details Date Type Department Care Team (Late st Contact Info) Description 04/19/2020 12:00 PM EST Infusion Hematology Oncology at [address] [phone] Dehydration; Tonsil cancer Social History [...] Sign Reading Time Taken Comments Blood Pressure 134/80 04/19/2020 12:25 PM EST Pulse 78 04/19/2020 12:25 PM EST Temperature 36.4 ??C (97.5 ??F) 04/19/2020 1 2:25 PM EST Respiratory Rate 16 04/19/2020 12:2 5 PM EST Oxygen Saturation 100% 04/19/2020 12: 25 PM EST Inhaled Oxygen Concentration - - Weight 73.8 kg (162 lb 12.8 oz) 020 12:25 PM EST Height 170.5 cm (5' 7.13) 04/19/2020 1 2:25 PM EST Body Mass Index 25.4 04/19/2020 12:25 PM EST documented in this encounter Progress Notes * Margie Page RN - 04/19/2020 12:00 PM EST INFUSION THERAPY ADMINISTRATION NOTES DIAGNOSIS: Tonsil Cancer REASON FOR VISIT: Hydration SUBJECTIVE Zen offers no complaints. He is due to complete XRT today. OBJECTIVE IV ACCESS: mediport accessed, blood return present and flushes easily. Port left accessed for treatment tomorrow. REACTIONS (DESCRIPTION, TIME, INTERVENTION AND EFFECTIVENESS) none ASSESSMENT Zen was awake, alert and tolerated treatment well. PLAN Return to clinic per routine. documented in this encounter Plan of Treatment Upcoming Encounters Date Type Department Care Team (Late st Contact Info) Description 05/31/2024 11:30 AM EST Office Visit Hematology/Oncolog y at [address] [address] Tej Tipton MD [address] [facility] HEMATOLOGY & [place] [address] Stacy Valle APRN [facility] [place] [address] 06/01/2024 10:30 AM EST Scheduled View Only [place] [address] 06/01/2024 11:00 AM EST Office Visit [place] [address] Luis E Chin MD [facility] [place] [address] 06/04/2024 8:30 AM EST Hospital Encounter [place] [address] Rayshawn Suresh MD [facility] [place] [address] 06/04/2024 8:30 AM EST - 06/04/2024 1:05 PM EST [place] [address] Rayshawn Suresh MD [facility] [place] [address] @THORACOSCOPY, SURG; W PLEURODESIS (WRVU 10.83) Scheduled [...] Intravenous, DAILY, 1 dose, First dose on Fri04/19/20 at 1200 New Bag 04/19/2020 12:25 PM EST 1,000 mLs 999 mL/hr documented in this encounter Care Teams Cnc Operator Machinist Relationship Specialty Start Date End Date Tiny Walters APRN [address] [place] [phone] PCP - General Family Medicine 12/01/19 04/07/24 documented as of this encounter
--- OUTSIDE RECORDS SUMMARY | 2024-05-31 01:25 | XMS_ITS | Encounter Summary ---
Author Organization [facility] [place] [address] Care Team Providers Care Hvac Specialist Name Role Phone Romeo Tiny Lindsay APRN Primary Care Provider +1- [phone] Encounter Details Date Type Department Care Team (Late Contact Info) Description 03/28/2020 Orders Only [place] [address] Jose Martin Rae MD [facility] [place] [address] Malignant neoplasm of overlapping sites of tonsil Social History Tobacco Use Types [...] EST Office Visit Hematology/Oncolog y at [address] [address] Tej Tipton MD [facility] [place] [address] Stacy Valle APRN [facility] [place] [address] 06/01/2024 10:30 AM EST Scheduled View [place] [address] 06/01/2024 11:00 AM EST Office [place] [address] Luis E Chin MD [facility] [place] [address] 06/04/2024 8:30 AM EST Hospital Encounter [place] [address] Rayshawn Suresh MD [facility] [place] [address] 06/04/2024 8:30 AM EST - 06/04/2024 1:05 PM EST Surgery [place] [address] Rayshawn Suresh MD [facility] [place] [address] @THORACOSCOPY, SURG; W PLEURODESIS (WRVU 10.83) Scheduled [...] encounter Visit Diagnoses Diagnosis Malignant neoplasm of overlapping sites of tonsil Malignant neoplasm of tonsil documented in this encounter Care Teams Hvac Specialist Relationship Specialty Start Date End Date Tiny Walters APRN [address] [place] [phone] PCP - General Family Medicine 12/01/19 04/07/24 documented as of this encounter
--- OUTSIDE RECORDS SUMMARY | 2024-05-31 01:25 | XMS_ITS | Encounter Summary ---
Author Organization [facility] Address [facility] [place] [address] Care Team Providers Care Utility Repairer Name Role Phone Tiny Walters APRN Primary Care Provider +1- [phone] Encounter Details Date Type Department Care Team (Late st Contact Info) Description 04/03/2020 11:00 AM EST Office Visit Hematology/Oncology at [address] [address] Tonsil cancer [...] Progress Notes * Tonya Machado RD - 04/03/2020 11:00 AM EST [facility] Dietitian Follow Up Seen By: Tonya Machado [...] J69.0 ??? Dehydration E86.0 Meds: reviewed Labs: reviewed Estimated body mass index is 26.9 kg/m?? as calculated from the following: Height as of 04/04/20: 170.2 cm (5' 7.01). Weight as of 04/04/20: 77.9 kg (171 lb 12.8 oz). Wt Readings from Last 3 Encounters: 04/04/20 77.9 kg (171 lb 12.8 oz) 04/03/20 74.8 kg (164 lb 12.8 oz) 03/29/20 75.2 kg (165 lb 12.8 oz) Previous weights: 02/16/20: 180 lbs 02/11/20: 179 lbs Further weight loss this week. Wt Hx: UBW: % UBW: IBW: +/- 10% % IBW: ___ Edema ___ Ascites ___Muscle wasting Calories: 8003-7838 (30-35 kcal/kg) Protein: 120 grams (1.5 g/kg) Fluid: 2.5 L Nutrition Assessment: Enteral Nutrition: G-tube placed 02/10 by IR - 16 Nepalese balloon retained g-tube If unable to eat orally, recommend 7 cans of Nutren 1.5 via G-tube/day to provide 2625 kcal, 119 gmof protein and 1337 mLs of free water. He did check balloon fill this past week, 4-5 cc water. Slowly increasing. Is tolerating 5 cartons per day, usually 2 cartons in AM and 1.5 at two following feedings using gravity bags. Increased fullness is obstacle to increasing feedings and water flushes. Food Intake: no oral intake at this time; water more difficult as well d/t phlegm. Teas, vitamins, or other nutritional supplements: n/a Food allergies or avoidances: denies Appetite: good Nausea: occasional Vomiting: n/a Chewing: denies difficulty Dentition: wisdom teeth removed recently Swallowing: difficulty, mild sore throat; increased phlegm Taste Changes: +bland Bowels: previously constipation, now some diarrhea, but thinks this could be medication related Food availability/purchasing, meal planning and preparation: Social Support: ; 3 children at home Physical Activity: Anticipated adherence/understanding: good Nutrition Diagnosis: New g-tube placement in anticipation of starting treatment for recently diagnosed HN cancer. Nutrition Intervention: ? Increase caloric needs ? Modify diet consistency: as tolaterated ? Enteral Nutrition: increase tube feedings to 6-7 per day; providing donated formula to patient (Nutren 1.5, unopened, unexpired) ? Trial of Suzy Farms 1.5 - requested 2 cases sent to patient for trial. If well tolerated, 5 cartons will provide 2500 calories and 120 grams protein. Monitoring and Evaluation: Will follow up weekly during treatment. documented in this encounter Plan of Treatment Upcoming Encounters Date Type Department Care Team (Late st Contact Info) Description 05/31/2024 11:30 AM EST Office Visit Hematology/Oncolog y at [address] [address] Tej Tipton MD [address] [facility] H[place]ATOLOGY [place] [address] Stacy Valle APRN [facility] [place] [address] 06/01/2024 10:30 AM EST Scheduled View [place] [address] 06/01/2024 11:00 AM EST Office [place] [address] Luis E Chin MD [facility] [place] [address] 06/04/2024 8:30 AM EST Hospital Encounter [place] [address] Rayshawn Suresh MD [facility] [place] [address] 06/04/2024 8:30 AM EST - 06/04/2024 1:05 PM EST Surgery Main [place] [address] Rayshawn Suresh MD [facility] [place] [address] @THORACOSCOPY, SURG; W PLEURODESIS (WRVU 10.83) Scheduled [...] tonsil documented in this encounter Care Teams Utility Repairer Relationship Specialty Start Date End Date Tiny Walters APRN [address] [place] [phone] PCP - General Family Medicine 12/01/19 04/07/24 documented as of this encounter
--- OUTSIDE RECORDS SUMMARY | 2024-05-31 01:25 | XMS_ITS | Encounter Summary ---
Author Organization [facility] [place] [address] Care Team Providers Care Food Operations Manager Name Role Phone Tiny Walters APRN Primary Care Provider +1- [phone] Encounter Details Date Type Department Care Team (Late Contact Info) Description 04/24/2020 4:25 PM EST Ancillary Procedure Radiology Library at [facility] [place] [address] Tiny Walters APRN [address] [place] [phone] Social History Tobacco Use Types Packs/Day Years [...] EST Office Visit Hematology/Oncolog y at [address] [address] Tej Tipton MD [address] [facility] HEMATOLOGY & [place] [address] Stacy Valle APRN [facility] [place] [address] 06/01/2024 10:30 AM EST Scheduled View Only Rad[place] [address] 06/01/2024 11:00 AM EST Office Visit [place] [address] Luis E Chin MD [facility] DR RADIATION [place] [address] 06/04/2024 8:30 AM EST Hospital Encounter [place] [address] Rayshawn Suresh MD [facility] DR THORACIC [place] [address] 06/04/2024 8:30 AM EST - 06/04/2024 1:05 PM EST Surgery [place] [address] Rayshawn Suresh MD [facility] THORACIC [place] [address] @THORACOSCOPY, SURG; W PLEURODESIS (WRVU 10.83) Scheduled [...] FILM LIBRARY STORAGE ONLY DX CHEST Routine 04/24/2020 4:22 PM EST documented in this encounter Results * Film Library- Storage Only DX Chest (04/24/2020 4:22 PM EST) Narrative [facility] - 04/24/2020 4:22 PM EST This exam is auto-finalizing. It's purpose is for storage only. Tiny Walters APRN IMG FILM LIBRARY O RDERABLES [place], [place] documented in this encounter Visit Diagnoses Not on filedocumented in this encounter Care Teams Food Operations Manager Relationship Specialty Start Date End Date Tiny Walters APRN [address] [place] [phone] PCP - General Family Medicine 12/01/19 04/07/24 documented as of this encounter
--- OUTSIDE RECORDS SUMMARY | 2024-05-31 01:25 | XMS_ITS | Encounter Summary ---
Author Organization [facility] Address [facility] [place] [address] Care Team Providers Care Concession Cashier Name Role Phone Tiny Walters APRN Primary Care Provider +1- [phone] Encounter Details Date Type Department Care Team (Late st Contact Info) Description 04/26/2020 11:30 AM EST Telephone Hematology/Oncology at [address] [address] Social History [...] Telephone Encounter - Tonya Machado RD - 04/26/2020 10:38 AM EST Nutrition Phone Call Spoke with patient's , Janett, on the phone today. She states patient had a difficult few days following his final treatment last week with multiple occasions of vomiting. Pain medication was changed on Friday and patient is beginning to feel better today. Continues to receive 100% of his nutrition via g-tube, but is starting to take small sips of water. He is using both Suzy Farms Peptide 1.5 and Nutren 1.5 via gravity bags with good tolerance. They are accepting donated formula. Will send another box of Suzy Farms to patient today and re-asses formula needs at follow up next Friday (05/01). documented in this encounter Plan of Treatment Upcoming Encounters Date Type Department Care Team (Late st Contact Info) Description 05/31/2024 11:30 AM EST Office Visit Hematology/Oncolog y at [address] [address] Tej Tipton MD [address] [facility] HEMATOLOGY & [place] [address] Stacy Valle APRN [facility] [place] [address] 06/01/2024 10:30 AM EST Scheduled View Only Radiation [place] [address] 06/01/2024 11:00 AM EST Office Visit Radiation [place] [address] Luis E Chin MD [facility] [place] [address] 06/04/2024 8:30 AM EST Hospital Encounter [place] [address] Rayshawn Suresh MD [facility] [place] [address] 06/04/2024 8:30 AM EST - 06/04/2024 1:05 PM EST Surgery [place] [address] Rayshawn Suresh MD [facility] [place] [address] @THORACOSCOPY, SURG; W PLEURODESIS (WRVU 10.83) Scheduled [...] on filedocumented in this encounter Care Teams Concession Cashier Relationship Specialty Start Date End Date Tiny Walters, BATSHEVA [address] [place] [phone] PCP - General Family Medicine 12/01/19 04/07/24 documented as of this encounter
--- OUTSIDE RECORDS SUMMARY | 2024-05-31 01:25 | XMS_ITS | Encounter Summary ---
Author Organization [facility] Address [facility] [place] [address] Care Team Providers Care Header Boss Name Role Phone Tiny Walters APRN Primary Care Provider +1- [phone] Encounter Details Date Type Department Care Team (Late st Contact Info) Description 04/05/2020 8:00 AM EST Office Visit Radiation Oncology at [address] [address] Jose Martin Rae MD [facility] [place] [address] Malignant neoplasm of overlapping sites of tonsil [...] Sign Reading Time Taken Comments Blood Pressure 115/67 04/05/2020 11:00 AM EST Pulse 76 04/05/2020 11:00 AM EST Temperature 36.5 ??C (97.7 ??F) 04/05/2020 11:[address] Respiratory Rate 18 04/05/2020 11:00 AM EST Oxygen Saturation 98% 04/05/2020 11:00 AM EST Inhaled Oxygen Concentration - - Weight 76.7 kg (169 lb) 04/05/2020 11:00 AM EST Height - - Body Mass Index 26.46 04/04/2020 8:35 AM EST documented in this encounter Progress Notes * Jose Martin Rae MD - 04/05/2020 8:00 AM EST ON TREATMENT VISIT NOTE Zen Pickering is a 39 y.o. 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 Definitive chemoradiotherapy. Current treatment dose: 50 Gy in 25 fractions. Anticipated total dose: 70 Gy in 35 fractions. Concomitant Therapy: Y ONC BCA CHEMO (AMB) 02/29/2020 03/06/2020 03/13/2020 Day, Cycle Day 1, Cycle 1 Day 8, Cycle 1 Day 15, Cycle 1 CISplatin (PlatinoL) IV 40 mg/m2/dose 40 mg/m2/dose 40 mg/m2/dose ONC BCA CHEMO (AMB) 03/20/2020 03/27/2020 Day, Cycle Day 22, Cycle 1 Day 29, Cycle 1 CISplatin (PlatinoL) IV 40 mg/m2/dose 40 mg/m2/dose Evaluation of Port Verification Films: PORT films have been reviewed, please see FOZIA for details. Intercurrent History: infection resolved Changes in medical condition Pain: Odynophagia, 2-4/10, worse with dryness / swallowing; not requiring [...] Assessment: Weight : 80.1 kg initial Change: 77 kg => 76.7 kg Objective: Vitals: 04/05/20 1100 BP: 115/67 Patient Position: Sitting Pulse: 76 Resp: 18 Temp: 36.5 ??C (97.7 ??F) TempSrc: Temporal SpO2: 98% Weight: 76.7 kg (169 lb) SKIN: mild skin erythema MUCOSA: patchy [...] OTC medications ?? BMX prn ?? Skin: Jeans cream prn ?? Mucositis: ?? Pain control: see above ?? Oral hygiene consisting of baking soda/salt rinse at least 8 times daily ?? Mucinex prn for thick secretions ?? Suction ?? Alimentation: motor rebuilder following ?? Weight slightly decreased, all nutrition via G tube due to secretions CTCAE v4.03 scales for reference Skin 0 [...] AM EST Office Visit Hematology/Oncolog y at [address] [address] Tej Tipton MD [address] [facility] DR [place] [address] Stacy Valle APRN [facility] [place] [address] 06/01/2024 10:30 AM EST Scheduled View [place] [address] 06/01/2024 11:00 AM EST Office [place] [address] Luis E Chin MD [facility] [place] [address] 06/04/2024 8:30 AM EST Hospital Encounter [place] [address] Rayshawn Suresh MD [facility] [place] [address] 06/04/2024 8:30 AM EST - 06/04/2024 1:05 PM EST Surgery [place] [address] Rayshawn Suresh MD [facility] [place] [address] @THORACOSCOPY, SURG; W PLEURODESIS (WRVU 10.83) Scheduled [...] tonsil documented in this encounter Care Teams Header Boss Relationship Specialty Start Date End Date Tiny Walters APRN [address] [place] [address] PCP - General Family Medicine 12/01/19 04/07/24 documented as of this encounter
--- OUTSIDE RECORDS SUMMARY | 2024-05-31 01:25 | XMS_ITS | Encounter Summary ---
Author Organization [facility] Address [facility] [place] [address] Care Team Providers Care Senior Cyber Security Analyst Name Role Phone Walters Tiny Lindsay APRN Primary Care Provider +1- [phone] Encounter Details Date Type Department Care Team (Late st Contact Info) Description 04/19/2020 Notes Only [place] [address] Jose Martin Rae MD [facility] [place] [address] Social History Tobacco Use Types Packs/Day Years [...] * Jose Martin Rae MD - 04/19/2020 11:59 PM EST Images from the original note were not included. Radiation Oncology Treatment Summary PATIENT NAME: Zen Pickering DATE OF : 1980 DIAGNOSIS / TREATMENT OVERVIEW ??Zen Pickering is a 39 y.o. male with ??cT4 (extrinsic tongue muscle invasion) N2 (Stage [...] 56 Gy @ 1.6 Gy/fxn PLAN IMAGES CLINICAL COURSE Zen Pickering had the following toxicities at the end of treatment (CTCAE v4.03): Site Grade Skin 1 Xerostomia 3 Pharyngeal Mucositis 3 Dysphagia 2 Hoarseness 0 Feeding Tube: Y FOLLOW UP Per [facility] protocol documented in this encounter Plan of Treatment Upcoming Encounters Date Type Department Care Team (Late st Contact Info) Description 05/31/2024 11:30 AM EST Office Visit Hematology/Oncolog y at [address] [address] Tej Tipton MD [facility] DR HEMATOLOGY & [place] [address] Stacy Valle APRN [facility] [place] [address] 06/01/2024 10:30 AM EST Scheduled View [place] [address] 06/01/2024 11:00 AM EST Office Visit [place] [address] Luis E Chin MD [facility] [place] [address] 06/04/2024 8:30 AM EST Hospital Encounter [place] [address] Rayshawn Suresh MD [facility] [place] [address] 06/04/2024 8:30 AM EST - 06/04/2024 1:05 PM EST Surgery [place] [address] Rayshawn Suresh MD [facility] [place] [address] @THORACOSCOPY, SURG; W PLEURODESIS (WRVU 10.83) Scheduled [...] on filedocumented in this encounter Care Teams Senior Cyber Security Analyst Relationship Specialty Start Date End Date Tiny Walters APRN [address] [place] [phone] PCP - General Family Medicine 12/01/19 04/07/24 documented as of this encounter
--- OUTSIDE RECORDS SUMMARY | 2024-05-31 01:25 | XMS_ITS | Encounter Summary ---
Author Organization [facility] Address [facility] [place] [address] Care Team Providers Care Manager Talent Name Role Phone Tiny Walters APRN Primary Care Provider +1- [phone] Encounter Details Date Type Department Care Team (Late st Contact Info) Description 03/29/2020 8:30 AM EST Office Visit Radiation Oncology at [address] [phone] Jose Martin Rae MD [facility] [place] [address] Malignant neoplasm of overlapping sites of tonsil [...] Sign Reading Time Taken Comments Blood Pressure 110/62 03/29/2020 8:00 AM EST Pulse - - Temperature 36.5 ??C (97.7 ??F) 03/29/2020 8:00 AM ES T Respiratory Rate 18 03/29/2020 8:00 AM EST Oxygen Saturation 99% 03/29/2020 8:00 AM EST Inhaled Oxygen Concentration - - Weight 75.2 kg (165 lb 12.8 oz) 03/29/2020 8:00 AM EST Height - - Body Mass Index 25.96 03/27/2020 10:21 AM EST documented in this encounter Progress Notes * Jose Martin Rae MD - 03/29/2020 8:30 AM EST ON TREATMENT VISIT NOTE Zen Pickering is a 39 y.o. 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 Definitive chemoradiotherapy. Current treatment dose: 44 Gy in 22 fractions. Anticipated total dose: 70 Gy in [...] Assessment: Weight : 80.1 kg initial Change: 78.5 kg => 77 kg Objective: There were no vitals filed for this visit. SKIN: mild skin erythema MUCOSA: patchy mucositis Assessment: Stable toxicity with severe dysgeusia, xerostomia/thick secretions, and [...] Mucinex prn for thick secretions ?? Suction ordered ?? Alimentation: healthcare business analyst following ?? Weight stable , using G tube, but also by mouth at this time CTCAE v4.03 scales for reference Skin 0 [...] EST Office Visit Hematology/Oncolog y at [address] [phone] Tej Tipton MD [address] [facility] HEMATOLOGY & [place] [address] Stacy Valle APRN [facility] [place] [address] 06/01/2024 10:30 AM EST Scheduled View Only Radiation Oncology at [place] [phone] 06/01/2024 11:00 AM EST Office Visit Radiation Oncology at [place] [phone] Luis E Chin MD [facility] [place] [address] 06/04/2024 8:30 AM EST Hospital Encounter Main Operating Room [place] [phone] Rayshawn Suresh MD [facility] [place] [address] 06/04/2024 8:30 AM EST - 06/04/2024 1:05 PM EST Surgery Main Operating Room [place] [phone] Rayshawn Suresh MD [facility] [place] [address] @THORACOSCOPY, SURG; W PLEURODESIS (WRVU 10.83) Scheduled [...] tonsil documented in this encounter Care Teams Manager Talent Relationship Specialty Start Date End Date Tiny Walters APRN [address] [place] [phone] PCP - General Family Medicine 12/01/19 04/07/24 documented as of this encounter
--- OUTSIDE RECORDS SUMMARY | 2024-05-31 01:25 | XMS_ITS | Encounter Summary ---
Author Organization [facility] Address [facility] [place] [address] Care Team Providers Care Lard Maker Name Role Phone Tiny Walters APRN Primary Care Provider +1- [phone] Encounter Details Date Type Department Care Team (Late st Contact Info) Description 04/03/2020 10:15 AM EST Office Visit Hematology/Oncology at [address] [phone] Gume Christy MD [address] [place] [address] [place] [address] Tonsil cancer; Gastrostomy tube in place; Aspiration pneumonia of right lower lobe, unspecified [...] Sign Reading Time Taken Comments Blood Pressure 117/73 04/03/2020 10:21 AM EST Pulse 103 04/03/2020 10:21 AM EST Temperature 36.6 ??C (97.8 ??F) 04/03/2020 1 0:21 AM EST Respiratory Rate 16 04/03/2020 10:2 1 AM EST Oxygen Saturation 100% 04/03/2020 10: 21 AM EST Inhaled Oxygen Concentration - - Weight 74.8 kg (164 lb 12.8 oz) 020 10:21 AM EST Height 170.2 cm (5' 7.01) 04/03/2020 1 0:21 AM EST Body Mass Index 25.81 04/03/2020 10:21 AM EST documented in this encounter Progress Notes * Gume Christy MD - 04/03/2020 10:15 AM EST Hematology/Oncology Clinic [facility] Patient Active Problem List Diagnosis ??? 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 Odynophagia, progressing to R otalgia, headache, trismus Summer 2019; large R tonsil non-ker SCCa extending to intrinsic tongue, pterygoids, FOM; nonpalable bilateral adenopathy B. Definitive chemoradiation (weekly cisplatin) instituted 02/29/2020; course c/b RLL pneumonia 03/21/2020 ??? Aspiration pneumonia of right lower lobe ??? Dysphagia, oropharyngeal phase ??? Gastrostomy tube in place Balloon-retained (5 mL inflation), 16 Fr, placed by [facility] IR 02/11/2020 ??? Raynaud's syndrome ONCBCN ONCOLOGY [...] = 79 mg ONCBCN ONCOLOGY (AMB) 03/27/2020 Day, Cycle Day 29, Cycle 1 CISplatin (PlatinoL) IV 40 mg/m2/dose = 79 mg Med Onc checkup; due for chemo dose #6 and RT fraction #25 (50 Gy). Due to finish radiation on 04/18. He has been tolerating chemotherapy fairly well, with minimal nausea on days 2 and 3. He has been using Compazine with good control. He has had no tinnitus, hearing problems, or peripheral sensory neuropathy. He completed his antibiotics for aspiration pneumonia and has no lung symptoms. No recurrent fevers. Throat pain is increasing but is still mild. His main problem continues to be excessive phlegm thatbuilds up in the throat. This is constant, keeps him up at night, and occasionally causes gagging and vomiting. He has a portable suction machine now which helps. However, the phlegm complicates trying to swallow liquid. He has been getting in a total of 5 containers of Nutren 1.5/day, 2 containers in the morning, and 2 feedings in 1-1/2 containers later in the day. He has been trying to add some hydration but too much volume causes bloating and sometimes nausea. He tried using Mucinex but this did not help. He is reluctant to try drying medications as the thick consistency of the mucus is already a major problemmore than the quantity. Physical exam: He looks tired, less energetic and less cheerful than before Oral exam shows good oral hydration. No visible candidiasis. Tongue still deviates to the right andis painful to move to the left. The right tonsillar tumor continues to regress, and now has an areaof pale mucositis over an area of roughly 3 cm. There is no trismus. Neck exam is without palpable adenopathy. Skin in the radiation field is normal The chest is clear to auscultation and percussion Right chest Mediport is benign Cardiac exam is normal Abdomen is benign without hepatosplenomegaly or masses. The G-tube site is clean Extremities are without clubbing cyanosis or edema. Neurologic exam shows normal motor and sensory function. Reflexes 2+. Cranial nerves normal. Labs: Today's electrolytes are normal, BUN up slightly at 23, creatinine roughly stable at 1.13. Nonfasting glucose 128. Calcium and magnesium are normal. Hepatic enzymes normal. Albumin stable at 3.5. White count is 4.28, hemoglobin down slightly at 10.9, platelets 167. ANC is 3290. Impression: P16 positive right tonsil cancer, responding to treatment, but with considerable toxicity from excessive phlegm production. Chemotherapy-specific side effects have been manageable. Mild dehydration, due in part to his having to expectorate some much phlegm. Plan: We talked about a trial of drying agents such as scopolamine, but we agreed that thicker phlegm consistency might be more problematic than high- volume. Thus we will continue using the suction machine, and continue efforts at home hydration with frequent small-volume water instillation throughthe feeding tube. We will add day 2 intravenous hydration as well. Continue chemotherapy and other supportive care. He is due for a modified barium swallow, but this could not be accommodated due to schedule logistics today. Follow-up next week for checkup and final planned chemotherapy dose. Gume Christy MD, FACP cinder pit crane operator Hematology/Oncology Section [facility]/[address] [address] Voice recognition software used for this note; please excuse application analyst errors. I personally reviewed past medical, surgical, family medical histories, reviewed current medications, vital signs, labs, and performed full review of systems. These are documented below the narrativefor clarity and succinctness. Outpatient Medications Marked as Taking for the 04/03/20 encounter (Office Visit) with Melissa Christy MD Medication Sig Dispense Refill ??? guaiFENesin ER (Mucinex) 600 mg Tablet Extended Release 12hr Take 1,200 mg by mouth 2 times daily. ??? prochlorperazine (Compazine) 10 mg Tablet Take 1 tablet by mouth every 6 hours as needed for Nausea. 30 tablet 3 ??? venlafaxine XR (Effexor-XR) 75 mg Capsule, Sust. Release 24 hr TAKE ONE CAPSULE BY MOUTH EVERY DAY Review of Systems: Review of systems is negative for other GUILLOTINE TRIMMER, bone, pulmonary, cardiac, GI, , extremity, neurologic, endocrine, skin, constitutional, emotional, or functional problems. Vitals Office Visit from 04/03/2020 in Hematology/Oncology at [facility] Weight 74.8 kg (164 lb 12.8 oz) Height 170.2 cm (5' 7.01) BSA (Calculated - sq m) 1.88 sq meters BMI (Calculated) 25.8 Temp 36.6 ??C (97.8 ??F) Temp src Temporal Heart Rate (!) 103 Heart Rate Source Right, NIBP Resp 16 BP 117/73 Patient Position Sitting SpO2 100 % Karnofsky Score 70 Body surface area is 1.88 meters squared. Wt Readings from Last 3 Encounters: 04/03/20 74.8 kg (164 lb 12.8 oz) 03/29/20 75.2 kg (165 lb 12.8 oz) 03/28/20 77.2 kg (170 lb 3.2 oz) No results found for this or any previous visit (from the past 72 hour(s)). ++++++++++++++++++++++++++++++++++++++++++++++++++++ documented in this encounter Plan of Treatment Upcoming Encounters Date Type Department Care Team (Late st Contact Info) Description 05/31/2024 11:30 AM EST Office Visit Hematology/Oncolog y at [address] [phone] Tej Tipton MD [address] [facility] HEMATOLOGY & [place] [address] Stacy Valle APRN [facility] [place] [address] 06/01/2024 10:30 AM EST Scheduled View [place] [phone] 06/01/2024 11:00 AM EST Office [place] [phone] Luis E Chin MD [facility] [place] [address] 06/04/2024 8:30 AM EST Hospital Encounter [place] [phone] Rayshawn Suresh MD [facility] [place] [address] 06/04/2024 8:30 AM EST - 06/04/2024 1:05 PM EST Surgery [place] [phone] Rayshawn Suresh MD [facility] [place] [address] @THORACOSCOPY, SURG; W PLEURODESIS (WRVU 10.83) Scheduled [...] neoplasm of tonsil Gastrostomy tube in place Aspiration pneumonia of right lower lobe, unspecified aspiration pneumonia type documented in this encounter Care Teams Lard Maker Relationship Specialty Start Date End Date Tiny Walters APRN [address] [place] [phone] PCP - General Family Medicine 12/01/19 04/07/24 documented as of this encounter
--- OUTSIDE RECORDS SUMMARY | 2024-05-31 01:25 | XMS_ITS | Encounter Summary ---
Author Organization [facility] Address [facility] [place] [address] Care Team Providers Care Financial Sales Associate Name Role Phone Tiny Walters APRN Primary Care Provider +1- [phone] Reason for Visit * Reason Comments IV Medication IV hydration * Treatment/Therapy Plan Authorization (Routine) - Closed Specialty Diagnoses / Procedures Referred By Contac t Referred To Contact Diagnoses Tonsil cancer Dehydration Drug-induced nausea and vomiting Procedures TC PALONOSETRON HCL, 25MCG, INJECTION (ALOXI) TC APREPITANT, 1 MG, INJECTION TC CISPLATIN, POWDER OR SOLUTION, 10MG, INJECTION Gume Christy MD [address] [place] [address] [place] [address] [facility] Hem Onc Infusion [address] [place] [phone] Referral ID Status Reason Start Date Expiration Date Visits Re quested Visits Authorized [id number] Closed 01/24/2020 04/17/2021 30 0 Encounter Details Date Type Department Care Team (Late st Contact Info) Description 04/04/2020 8:30 AM EST Infusion Hematology Oncology at [address] [phone] Dehydration; Tonsil cancer Social History [...] Sign Reading Time Taken Comments Blood Pressure 135/70 04/04/2020 8:35 AM EST Pulse 85 04/04/2020 8:35 AM EST Temperature 36.3 ??C (97.3 ??F) 04/04/2020 8:35 AM ES T Respiratory Rate 16 04/04/2020 8:35 AM EST Oxygen Saturation 100% 04/04/2020 8:35 AM EST Inhaled Oxygen Concentration - - Weight 77.9 kg (171 lb 12.8 oz) 04/04/2020 8:35 AM EST Height 170.2 cm (5' 7.01) 04/04/2020 8:35 AM ES T Body Mass Index 26.9 04/04/2020 8:35 AM EST documented in this encounter Progress Notes * Nik Power RN - 04/04/2020 8:30 AM EST INFUSION THERAPY ADMINISTRATION NOTES DIAGNOSIS: Tonsillar cancer REASON FOR VISIT: To receive hydration SUBJECTIVE: Zen offers no complaints. OBJECTIVE: VSS. IV ACCESS: Port accessed from yesterday, flushes readily with brisk blood return. Pre administration: Chemotherapy orders independently verified for drug name, route, and dosage per patient's height, weight and BSA by NIK POWER, ARIK and [facility]. REACTIONS (DESCRIPTION, TIME, INTERVENTION AND EFFECTIVENESS) [...] EST Office Visit Hematology/Oncolog y at [address] [phone] Tej Tipton MD [address] [facility] [place]EMATOLOGY & [place] [address] Stacy Valle, MECHATRONICS TECHNOLOGIST [facility] DR MEDICAL ONCOLOGY [place], [place] [phone] 06/01/2024 10:30 AM EST Scheduled View Only Radiation Oncology at [place] [phone] 06/01/2024 11:00 AM EST Office Visit [place] [phone] Luis E Chin MD [facility] [place] [address] 06/04/2024 8:30 AM EST Hospital Encounter Main Operating Room [place] [phone] Rayshawn Suresh MD [facility] [place] [address] 06/04/2024 8:30 AM EST - 06/04/2024 1:05 PM EST Surgery [place] [phone] Rayshawn Suresh MD [facility] [place] [address] @THORACOSCOPY, SURG; W PLEURODESIS (WRVU 10.83) Scheduled [...] Intravenous, DAILY, 1 dose, First dose on Fri04/04/20 at 0900 New Bag 04/04/2020 8:34 AM EST 1,000 mLs documented in this encounter Care Teams Financial Sales Associate Relationship Specialty Start Date End Date Tiny Walters APRN [address] [place] [phone] PCP - General Family Medicine 12/01/19 04/07/24 documented as of this encounter
--- OUTSIDE RECORDS SUMMARY | 2024-05-31 01:25 | XMS_ITS | Encounter Summary ---
Author Organization [facility] Address [facility] [place] [address] Care Team Providers Care Bladder Tier Name Role Phone Tiny Walters APRN Primary Care Provider +1- [phone] Encounter Details Date Type Department Care Team (Late st Contact Info) Description 04/24/2020 9:30 AM EST Office Visit Hematology/Oncology at [address] [phone] Gume Christy MD [address] [place] [address] [place] [address] Tonsil cancer; Cough with hemoptysis; Drug-induced nausea and vomiting Social History Tobacco [...] Sign Reading Time Taken Comments Blood Pressure 127/76 04/24/2020 9:42 AM EST Pulse 112 04/24/2020 9:42 AM EST Temperature 36.3 ??C (97.3 ??F) 04/24/2020 9:42 AM ES T Respiratory Rate 20 04/24/2020 9:42 AM EST Oxygen Saturation 100% 04/24/2020 9:42 AM EST Inhaled Oxygen Concentration - - Weight 72.8 kg (160 lb 6.4 oz) 04/24/2020 9:42 A M EST Height 170.5 cm (5' 7.13) 04/24/2020 9:42 AM ES T Body Mass Index 25.03 04/24/2020 9:42 AM EST documented in this encounter Progress Notes * Gume Christy MD - 04/24/2020 9:30 AM EST Hematology/Oncology Clinic [facility] [...] completed 04/19/2020, cumulative cisplatin 280 mg/m2 ??? Choking due to phlegm in larynx ??? Dehydration ??? Aspiration pneumonia of right lower lobe ??? Dysphagia, oropharyngeal phase ??? Gastrostomy tube in place Balloon-retained (5 mL inflation), 16 Fr, placed by [facility] IR 02/11/2020 ??? Raynaud's syndrome Medical oncology checkup and hydration appointment. He completed chemoradiation on Thursday 04/19. At last visit we started him on oxycodone for increasing mucositis pain where Neurontin at low doses have not been effective. The oxycodone he has beentaking every 4 hours; this has helped his pain but has been associated with increasing chronic nausea. He still has episodes of gagging and retching sometimes with emesis on the copious thick phlegm that still bothers him. He is still using his portable suction machine. He is swallowing very little, occasional sips of water. His bowels have been regular. He has had no fevers or chills, but does admit to coughing up quite a bit of phlegm, sometimes with blood. His is concerned about the possibility of recurrent pneumonia. His feeding tube is been working fine and he has been able to tolerate feedings most of the time. Nonetheless he has lost some weight. He met with Carrie MARINA last week; she recommended oral protectant and dry mouth remedies which he's found moderately helpful. Exam; Looks tired Oral clean; trismus more advanced, interincisor ~1 cm. Patch of mucositis on R ventral tng Neck: dry desquam bilat; no adenopathy Chest: clear Mediport benign Cor: tachycardic Abd: quiet BS. Nontender, no HSM or mass. G-tube site clean. Extrem: no edema. Neuro: normal motor and sensory and CNN. Reflexes 2+ No labs ordered today. 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 This degree of pharyngeal toxicity and fatigue is typical. Nausea is less easily attributed to treatment; this may be d/t narcotic, possibly d/t brainstem transit radiation dose. Doubt pneumonia, but phlegm and overall ill health subjectively put recurrent PNA within the differential. Tachycardia, likely d/t dehydration. Plan: 1. 1 L IV normal saline today, with a dose of IV ondansetron. 2. Hold oxycodone; revert to gabapentin liquid 250/5 (he has a supply), increase to 300 mg (6 ml) TID. 3. Rx for ondansetron ODT dissolved in water q 8 hr PRN nausea. 4. CXR at [facility] after clinic visit. 5. Schedule repeat hydration appt for 04/[address] Rae and agriculture professor Carter. Gume Christy MD, FACP third helper Hematology/Oncology Section [facility]/[address] [phone] Voice recognition software used for this note; please excuse stem roller operator errors. I personally reviewed past medical, surgical, family medical histories, reviewed current medications, vital signs, labs, and performed full review of systems. These are documented below the narrativefor clarity and succinctness. Outpatient Medications Marked as Taking for the 04/24/20 encounter (Office Visit) with Gume Christy MD Medication Sig Dispense Refill ??? oxyCODONE (Roxicodone) 5 mg/5 mL Solution Take 5 mLs by mouth every 4 hours as needed for Pain for up to 14 days. 240 mL 0 ??? guaiFENesin ER (Mucinex) 600 mg Tablet Extended Release 12hr Take 1,200 mg by mouth 2 times daily. ??? polyethylene glycoL (Miralax) 17 gram/dose Powder Take 17 g by mouth daily. ??? prochlorperazine (Compazine) 10 mg Tablet Take 1 tablet by mouth every 6 hours as needed for Nausea. 30 tablet 3 ??? venlafaxine XR (Effexor-XR) 75 mg Capsule, Sust. Release 24 hr TAKE ONE CAPSULE BY MOUTH EVERY DAY Review of Systems: Review of systems is negative for other BAG SORTER, bone, pulmonary, cardiac, GI, , extremity, neurologic, endocrine, skin, constitutional, emotional, or functional problems. Vitals Office Visit from 04/24/2020 in Hematology/Oncology at [facility] Weight 72.8 kg (160 lb 6.4 oz) Height 170.5 cm (5' 7.13) BSA (Calculated - sq m) 1.86 sq meters BMI (Calculated) 25.03 Temp 36.3 ??C (97.3 ??F) Temp src Temporal Heart Rate (!) 112 Heart Rate Source Right, NIBP Resp 20 BP 127/76 BP Location Right arm Patient Position Sitting SpO2 100 % Karnofsky Score 70 Body surface area is 1.86 meters squared. Wt Readings from Last 3 Encounters: 04/24/20 72.8 kg (160 lb 6.4 oz) 04/19/20 73.8 kg (162 lb 12.8 oz) 04/17/20 73.6 kg (162 lb 3.2 oz) No results found for this or any previous visit (from the past 72 hour(s)). ++++++++++++++++++++++++++++++++++++++++++++++++++++ documented in this encounter Plan of Treatment Upcoming Encounters Date Type Department Care Team (Late st Contact Info) Description 05/31/2024 11:30 AM EST Office Visit Hematology/Oncolog y at [address] [phone] Tej Tipton MD [address] [facility] HEMATOLOGY & ONCOLOGY [place], [place] [phone] Stacy Valle APRN [facility] [place] [address] 06/01/2024 10:30 AM EST Scheduled View Only Radiation Oncology at [place] [phone] 06/01/2024 11:00 AM EST Office Visit Radiation Oncology at [place] [phone] Luis E Chin MD [facility] [place] [address] 06/04/2024 8:30 AM EST Hospital Encounter [place] [phone] Rayshawn Suresh MD [facility] [place] [address] 06/04/2024 8:30 AM EST - 06/04/2024 1:05 PM EST Surgery [place] [phone] Rayshawn Suresh MD [facility] [place] [address] @THORACOSCOPY, SURG; W PLEURODESIS (WRVU 10.83) Scheduled [...] Diagnosis Tonsil cancer Malignant neoplasm of tonsil Cough with hemoptysis Other hemoptysis Drug-induced nausea and vomiting Nausea with vomiting documented in this encounter Care Teams Bladder Tier Relationship Specialty Start Date End Date Tiny Walters, HUMAN RESOURCES COORDINATOR [address] [place] [phone] PCP - General Family Medicine 12/01/19 04/07/24 documented as of this encounter
--- OUTSIDE RECORDS SUMMARY | 2024-05-31 01:25 | XMS_ITS | Encounter Summary ---
Author Organization [facility] Address [facility] [place] [address] Care Team Providers Care Weave Defect Charting Clerk Name Role Phone Tiny Walters APRN Primary Care Provider +1- [phone] Reason for Visit * Reason Comments IV Medication Hydration * Treatment/Therapy Plan Authorization (Routine) - Closed Specialty Diagnoses / Procedures Referred By Contac t Referred To Contact Diagnoses Tonsil cancer Dehydration Drug-induced nausea and vomiting Procedures TC PALONOSETRON HCL, 25MCG, INJECTION (ALOXI) TC APREPITANT, 1 MG, INJECTION TC CISPLATIN, POWDER OR SOLUTION, 10MG, INJECTION Gume Christy MD [address] [place] [address] [place] [address] [facility] Hem Onc Infusion [address] [place] [phone] Referral ID Status Reason Start Date Expiration Date Visits Re quested Visits Authorized [id number] Closed 01/24/2020 04/17/2021 30 0 Encounter Details Date Type Department Care Team (Late st Contact Info) Description 04/11/2020 10:00 AM EST Infusion Hematology Oncology at [address] [phone] Dehydration; Tonsil cancer Social History [...] Sign Reading Time Taken Comments Blood Pressure 119/72 04/11/2020 10:00 AM EST Pulse 87 04/11/2020 10:00 AM EST Temperature 37 ??C (98.6 ??F) 04/11/2020 10:00 AM EST Respiratory Rate 16 04/11/2020 10:00 AM EST Oxygen Saturation 100% 04/11/2020 10:00 AM EST Inhaled Oxygen Concentration - - Weight 74.4 kg (164 lb 1.6 oz) 04/11/2020 10:00 AM EST Height 170.5 cm (5' 7.13) 04/11/2020 10:[address] Body Mass Index 25.61 04/11/2020 10:00 AM EST documented in this encounter Progress Notes * Diana Sheets RN - 04/11/2020 10:00 AM EST INFUSION THERAPY ADMINISTRATION NOTES DIAGNOSIS: Tonsillar cancer CYCLE #: Cycle 1, Day 44 - Hydration, continues radiation until 04/18/20. REASON FOR VISIT: To receive hydration SUBJECTIVE: Zen offers no complaints. OBJECTIVE: VSS. IV ACCESS: Port accessed 04/10/20, flushes readily with brisk blood return. Pre administration: Chemotherapy orders independently verified for drug name, route, and dosage per patient's height, weight and BSA by Diana Sheets, ARIK and Hao De [facility]. REACTIONS (DESCRIPTION, TIME, INTERVENTION AND EFFECTIVENESS) none [...] EST Office Visit Hematology/Oncolog y at [address] [phone] Tej Tipton MD [address] [facility] HEMAT[facility] & [place] [address] Stacy Valle APRN [facility] [place] [address] 06/01/2024 10:30 AM EST Scheduled View Only Radiation Oncology at [place] [phone] 06/01/2024 11:00 AM EST Office [place] [address] Luis E Chin MD [facility] [place] [address] 06/04/2024 8:30 AM EST Hospital Encounter [place] [phone] Rayshawn Suresh MD [facility] [place] [address] 06/04/2024 8:30 AM EST - 06/04/2024 1:05 PM EST Surgery [place] [phone] Rayshawn Suresh MD [facility] [place] [address] @THORACOSCOPY, SURG; W PLEURODESIS (WRVU 10.83) Scheduled [...] Intravenous, DAILY, 1 dose, First dose on Fri04/11/20 at 0930 New Bag 04/11/2020 10:15 AM EST 1,000 mLs documented in this encounter Care Teams Weave Defect Charting Clerk Relationship Specialty Start Date End Date Tiny Walters APRN [address] [place] [phone] PCP - General Family Medicine 12/01/19 04/07/24 documented as of this encounter
--- OUTSIDE RECORDS SUMMARY | 2024-05-31 01:25 | XMS_ITS | Encounter Summary ---
Author Organization [facility] [place] [address] Care Team Providers Care Operations Support Analyst Name Role Phone Tiny Walters APRN Primary Care Provider +1- [phone] Reason for Visit * Reason Onset Date Comments Other 03/28/2020 [facility] faxed t o schedule next avail. Encounter Details Date Type Department Care Team ([facility] Contact Info) Description 03/28/2020 Telephone Radiation Oncology at [address] [phone] Caryn Child Other ([facility] faxed to schedule next avail.) Social History Tobacco Use Types Packs/Day Years [...] Upcoming Encounters Date Type Department Care Team ([facility] Contact Info) Description 05/31/2024 11:30 AM EST Office Visit Hematology/Oncolog y at [address] [phone] Tej Tipton MD [address] [facility] HEMATOLOGY & [place] [address] Stacy Valle APRN [facility] [place] [address] 06/01/2024 10:30 AM EST Scheduled View Only [place] [address] 06/01/2024 11:00 AM EST Office Visit [place] [address] Luis E Chin MD [facility] [place] [address] 06/04/2024 8:30 AM EST Hospital Encounter [place] [address] Rayshawn Suresh MD [facility] [place] [address] 06/04/2024 8:30 AM EST - 06/04/2024 1:05 PM EST Surgery [place] [address] Rayshawn Suresh MD [facility] [place] [address] @THORACOSCOPY, SURG; W PLEURODESIS (WRVU 10.83) Scheduled [...] on filedocumented in this encounter Care Teams Operations Support Analyst Relationship Specialty Start Date End Date Tiny Walters APRN [address] [place] [phone] PCP - General Family Medicine 12/01/19 04/07/24 documented as of this encounter
--- OUTSIDE RECORDS SUMMARY | 2024-05-31 01:25 | XMS_ITS | Encounter Summary ---
Author Organization [facility] Address [facility] [place] [address] Care Team Providers Care Metal Sander And Finisher Name Role Phone Tiny Walters APRN Primary Care Provider +1- [phone] Reason for Visit * Consultation (Routine) - Closed Specialty Diagnoses / Procedures Referred By Fritz lanier Referred To Contact Radiology Diagnoses Malignant neoplasm of overlapping sites of tonsil Procedures Film Library Radiation Oncology Studies Jose Martin Rae MD [facility] [place] [address] Referral ID Status Reason Start Date Expiration Date V isits Requested Visits Authorized [id number] Closed Specialty Service Requested 03/28/2020 03/28/2021 1 1 Encounter Details Date Type Department Care Team (Latest Contact Info) Description 03/28/2020 8:30 AM EST Ancillary Procedure Radiation Oncology at [address] [phone] Jose Martin Rae MD [facility] [place] [address] Malignant neoplasm of overlapping sites of tonsil [...] EST Office Visit Hematology/Oncolog y at [address] [phone] Tej Tipton MD [address] [facility] HEMATOLOGY & [place] [address] Stacy Valle APRN [facility] [place] [address] 06/01/2024 10:30 AM EST Scheduled View [place] [phone] 06/01/2024 11:00 AM EST Office [place] [phone] Luis E Chin MD [facility] [place] [address] 06/04/2024 8:30 AM EST Hospital Encounter [place] [address] Rayshawn Suresh MD [facility] [place] [address] 06/04/2024 8:30 AM EST - 06/04/2024 1:05 PM EST Surgery [place] [address] Rayshawn Suresh MD [facility] DR [place] [address] @THORACOSCOPY, SURG; W PLEURODESIS (WRVU 10.83) Pending Results Name Type Priority Associated Diagnoses Date /Time Film Library Radiation Oncology Studies Imaging Storage Only Routine Malignant neoplasm of overlapping sites of tonsil 03/28/2020 9:34 AM EST Scheduled Procedures Name Priority Associated Diagnoses Date/Ti [...] MAR Action Action Date Dose Rate Site iohexoL (Omnipaque) (300 mg/mL) injection solution 100 mL 100 mL, Intravenous, ONCE PRN, 1 dose, Starting on Fri03/28/20 at 0832, Until Fri03/28/20 at 0911, Per Protocol, Warning Vesicant/Irritant Medication , Routine Given 03/28/2020 9:11 AM EST 100 mLs Implanted Port documented in this encounter Care Teams Metal Sander And Finisher Relationship Specialty Start Date End Date Tiny Walters, CONTINUOUS PICKLING LINE PICKLER HELPER [address] [place] [phone] PCP - General Family Medicine 12/01/19 04/07/24 documented as of this encounter
--- OUTSIDE RECORDS SUMMARY | 2024-05-31 01:25 | XMS_ITS | Encounter Summary ---
Author Organization [facility] Address [facility] [place] [address] Care Team Providers Care Engraver Rubber Name Role Phone Tiny Walters APRN Primary Care Provider +1- [phone] Encounter Details Date Type Department Care Team (Latest Contact Info) Description 04/19/2020 3:30 PM EST TH Visit (TeleHealth) Hematology/Oncology at [address] [phone] Carrie Jacob, TEAM SPORTS SALES ASSOCIATE Dysphagia, oropharyngeal phase; Choking due to phlegm in larynx, initial encounter; Tonsil cancer; Aspiration pneumonia of right lower [...] on file documented as of this encounter Patient Instructions * Patient Instructions* Carrie Jacob, TEAM SPORTS SALES ASSOCIATE - 04/19/2020 3:30 PM EST We discussed: - using the provided trial of SalivaMax (and Orapeutics if you feel additional oral pain) for at least the next week to see if this works any better than the baking soda/salt rinse - starting the ARK-J stretches outlined in your packet provided today, and considering the outlinedgag desensitization technique, as tolerated We will work on finding a time in your schedule within the next 2 weeks to reschedule your modifiedbarium swallow study (whether it is here in St at [facility] or up at [facility]). Please do not hesitate to call with any questions. 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 Interval History: Increased difficulties with regard to odynophagia (3-5/10, worse with xerostomia or when initiating swallowing) and significant difficulty tolerating most prophylactic swallowing exercise even with small sips of water; currently receiving oxycodone 5 mg every four hours for pain as previous oral medication caused oral burning sensation; severe dysgeusia; difficulties with oral secretion management - thick, copious secretions; patchy mucositis located along posterior oropharynxand oral cavity; tolerating tube feeds; 5x/day HPI: Patient Active Problem List Diagnosis Code ??? 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 Raynaud's syndrome I73.00 ??? Gastrostomy tube in place Z93.1 Meds: reviewed RD visit 04/17/20: Labs: reviewed, sodium 133, creatinine 1.01 Estimated [...] lbs 02/11/20: 179 lbs Subjective: Patient with low affect/fatigue during visit today; continues to lose weight, not tolerating p.o. intake due to frequent gag reflex (initiated at pharyngeal level per pt report), nausea/vomiting; tolerating secretions only with H20 rinse+frequent oral suctioning. Objective: Pain: 3-5/10, right maxillary area (pain medications via G tube at this time); mucositis contributing factor to pain, consistent odynophagia Respiratory Status: Room air Current Diet: Minimal tolerance of Level 0 Thin liquids Feeding / Oral Care Status: Pt is independent Using BSSR, biotene frequently, reports frustration with oral care routine related to need for frequent suctioning, thick secretions Oral / Laryngeal Mechanism Clinical Assessment: patchy mucositis posterior oropharynx and oral cavity Trismus: Measurements below remain consistent as of this date: REYNA: ?? Previous measure (02/22) at 31.75 mm Trismus Severity - Mild (30-34 mm) (Jesus et al, 2006) Assessment: Pt assessed in office for motivational interview today prior to infusion; Discussed continued prophylactic swallowing exercise as tolerated, even if small amounts of water, and patient states the gagging sensation / nausea occurs pretty consistently, feels this is initiated at level of pharynx (versus palate or base of tongue) - likely due to toxicity of CONDENSER WINDER effecting hypoglossal nerve/hypersensitivity of gag reflex. Agreeable to 1-week trial of SalivaMax (supersaturated calcium phosphate rinse) and Orapeutics (oral hydrogel wound dressing PRN for mucositis) provided today to address oral comfort / xerostomia andcopious, thick secretions; demonstrated comprehension with recommendations as outlined today; TEAM SPORTS SALES ASSOCIATE followed up with patient's , Janett, via phone after visit to discuss recommendations and logisticsof rescheduling VFSS/MBSS within next 2 weeks - whether this will take place at [facility] or [facility] will bedecided within next week or so. Patient demonstrated comprehension with all recommendations regarding his treatment plan to adhere to aspiration precautions and prophylactic swallowing exercises during his chemo/RT as tolerated, despite level of pain and frustration; Patient continues to be appropriate candidate for TEAM SPORTS SALES ASSOCIATE intervention during chemo/RT and once chemo/RT has been completed given continued motivation and support fromspouse. Education provided re: rationale for continuing prophylactic swallowing exercises and continued p.o. intake with thorough oral care, as tolerated despite sensory aversion and/or gagging sensation with saliva swallows; ARK-J stretching routine as tolerated, and palatal gag desensitization technique,as tolerated; provided handouts to patient for review Pt will benefit from continued therapeutic interventions [...] liquids, effortful saliva swallow between sips VFSS/MBSS on hold currently, however discussed plan to have this rescheduled within next 2 weeks ([facility] or [facility] depending on patient's schedule) Recommend subsequent session to be scheduled within 2 weeks; earlier if symptoms become worse. Speech Therapy Goals: Pt/carepartner will be independent with aspiration precautions, diet texture modifications, and safe/efficient swallowing strategies as outlined. Pt will demonstrate effortful swallow technique with good execution to reduce muscle atrophy/as prophylactic swallowing exercise during chemo/RT. Pt will demonstrate comprehension of trismus management [...] as deemed necessary. Plan: Subsequent session in 2 weeks to re-assess, review results from VFSS/MBSS as available; address continued trismus education as needed, intervention for direct treatment planning/implementation, review of additional strategies to aid in swallowing/speech abilities and support quality of life. TEAM SPORTS SALES ASSOCIATE will contact patient's spouse via phone within next week to check in with patient, confirm scheduling for VFSS/MBSS and coordinate with [facility] TEAM SPORTS SALES ASSOCIATE as needed. Please feel free to contact me with any questions or concerns regarding Mr. Pickering's care. Carrie Jacob MA [facility]-TEAM SPORTS SALES ASSOCIATE Speech-Language Pathologist [email or web address] documented in this encounter Plan of Treatment Upcoming Encounters Date Type Department Care Team (Late st Contact Info) Description 05/31/2024 11:30 AM EST Office Visit Hematology/Oncolog y at [address] [phone] Tej Tipton MD [address] [facility] HEMATOLOGY & [place] [address] Stacy Valle APRN [facility] [place] [address] 06/01/2024 10:30 AM EST Scheduled View [place] [phone] 06/01/2024 11:00 AM EST Office Visit [place] [phone] Luis E Chin MD [facility] [place] [address] 06/04/2024 8:30 AM EST Hospital Encounter [place] [phone] Rayshawn Suresh MD [facility] [place] [address] 06/04/2024 8:30 AM EST - 06/04/2024 1:05 PM EST Surgery [place] [phone] Rayshawn Suresh MD [facility] [place] [address] @THORACOSCOPY, SURG; W PLEURODESIS (WRVU 10.83) Scheduled [...] encounter Visit Diagnoses Diagnosis Dysphagia, oropharyngeal phase Choking due to phlegm in larynx, initial encounter Tonsil cancer Malignant neoplasm of tonsil Aspiration pneumonia of right lower lobe, unspecified aspiration pneumonia type documented in this encounter Care Teams Engraver Rubber Relationship Specialty Start Date End Date Tiny Walters APRN [address] [place] [phone] PCP - General Family Medicine 12/01/19 04/07/24 documented as of this encounter
--- OUTSIDE RECORDS SUMMARY | 2024-05-31 01:25 | XMS_ITS | Encounter Summary ---
Author Organization Formerly [facility], 1928–1983 Address [facility] [place] [address] Care Team Providers Care Claims Collector Name Role Phone Tiny Walters APRN Primary Care Provider +1- [phone] Encounter Details Date Type Department Care Team (Latest Contact Info) Description 04/05/2020 11:00 AM EST Office Visit Hematology/Oncology at [address] [phone] Carrie Jacob, PLAYGROUND OFFICIAL Dysphagia, oropharyngeal phase Social History Tobacco Use [...] Patient Instructions * Patient Instructions* Carrie Jacob, PLAYGROUND OFFICIAL - 04/05/2020 11:00 AM EST We discussed delaying your modified barium/videofluoroscopic swallow study for now, until you are able to tolerate drinking small amounts by mouth without intense gagging or nausea/vomiting. Until then, continue to follow the aspiration/airway protection precautions we have gone over, including: Upright position when taking in anything by mouth and for at least 30 mins following as tolerated Thorough oral care As tolerated: Sensory enhancement (flavor, texture, temperature) *Small, controlled sips and bites *Slow rate; swallow between bites Continue to monitor for any signs/symptoms of aspiration (food/liquids entering your airway) when swallowing. These may include increased coughing, clearing your throat, or wet/gurgly voice. Additional recommendations to address oral comfort, if you'd like to explore these in the meantime: Xylimelts: https://www.PageBites/WbhkRbqmx-Otrqbfdxgpbn-Yydagevu-Xzqggfawfj-Szq-Phpedc/dp/ V13KYPF1SV/ref=sr_1_ 2?dchild=1&dbmwzu=86205664383614&hvbmt=be&hvdev=c&hvqmt=e&keywords=xylimelts&amp ;kaw=4172560780&sr=8-2&tag=fn1h-38 SalivaMax: https://Smartbill - Recurrence Backoffice/salivamax (I believe this will require a prescription, so I recommend following up with your MD if you are interested in trying this) I will plan to check in with you again in two weeks via phone and/or telehealth as needed. Please feel free to contact me directly with any questions/concerns. 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 Interval History: Resolved RLL pneumonia, unknown if this was due to silent aspiration as VFSS/MBSSwas postponed due to conflict with patient's chemoRT schedule on 04/03; PLAYGROUND OFFICIAL spoke with patient's spouse via phone in interim re: continued management of oral secretions outside of suctioning, including liquid forms of medications as appropriate, and may consider xylimelts and/or salivamax (although this may require prescription if patient is open to trying) for xerostomia management (advised spouse to review with Pharmacist and/or MD) HPI: Patient Active Problem List Diagnosis Code ??? 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 Raynaud's syndrome I73.00 ??? Gastrostomy tube in place Z93.1 Meds: reviewed Labs: reviewed RD visit 04/03/20: Estimated body mass index is 26.9 kg/m?? [...] 179 lbs Further weight loss this week. Subjective: Patient with low affect/frustration during brief visit today; continues to lose weight,not tolerating p.o. intake due to frequent gag reflex, nausea/vomiting. Bobby Dysphagia Inventory [MDADI], a validated and reliable self- administered questionnaire designed specifically for evaluating the impact of dysphagia on the QOL of patients with head and neck cancer (Zenaida et al 2001), was administered: Global Score: 3 Scores range from 1 (Extremely low functioning) to 5 (Extremely high functioning) Composite Score: 64.2 Scores range from 20 (Extremely low functioning) to 100 (High functioning) GTQ [[place] Trismus Questionnaire] 1 = no issue to 5 = severe issue: Items 1-23: Overall/General Issues 02/22: 51/115 03/22: [address]115 - Improvement in overall symptoms Items 16-20: Facial Pain in Past Week 02/22: 01/20 03/22: 09/19 (No facial pain reported) Items 21-23: Mouth Opening Ability 02/22: 10/10 03/22: 07/10 (no issues) Objective: Pain: 0/10 (with ibuprofen) Respiratory Status: Room air Current Diet: Tolerating Level 4/Pureed solids, Level 0 Thin liquids Feeding / Oral Care Status: Pt is independent Using BSSR, biotene frequently, reports oral care routine is going well and able to describe in detail Oral / Laryngeal Mechanism Clinical Assessment: No changes noted from previous visit Trismus: No reports of change relative to previous visit REYNA: ?? Previous measure (02/22) at 31.75 mm Trismus Severity - Mild (30-34 mm) (Jesus et al, 2006) Assessment: Pt assessed in office for motivational interview briefly today after treatments; Discussed identification of times throughout day when gagging sensation may be lessened to encourage prophylactic swallowing exercise, even if small amounts of water, and patient states the gagging sensation / nausea occurs pretty consistently. Patient indicated frustration with need to test for COVID19 prior to outpatient VFSS/MBSS, as well as level of tolerance for po intake at all during this time. We discussed postposing VFSS/MBSS for the time being, until he is able to tolerate even minimal po intake without nausea/vomiting; given significantly reduced po intake relative to previous visit and review of risk management today, patient is likely at reduced risk of pulmonary compromise from prandial aspiration. Patient demonstrated comprehension with all recommendations regarding his treatment plan to adhere to aspiration precautions and prophylactic swallowing exercises during his chemo/RT as tolerated; Patient continues to be appropriate candidate for PLAYGROUND OFFICIAL intervention during chemo/RT and once chemo/RT has been completed given continued motivation and support from spouse. Education provided re: rationale for continuing prophylactic swallowing exercises and continued p.o. intake with thorough oral care, as tolerated despite sensory aversion and/or gagging sensation with saliva swallows; pt expressed comprehension. Pt will benefit from continued therapeutic interventions to achieve therapy goals. Diagnosis: right tonsil squamous cell carcinoma, oropharyngeal dysphagia Recommendations: Diet: Continue Level 4 pureed and/or level 5 minced/moist solids, Level 0 thin liquids as tolerated PO medications: discuss liquid medication administration and/or via g tube as directed by MD / Pharmacist; otherwise whole with sip of liquid and/or puree as appropriate if pharyngeal globus noted Risk Management: Upright position during meals and for at least 30 mins following Sensory enhancement (flavor, texture, temperature): *Small sips and bites while eating *Slow rate; swallow between bites VFSS/MBSS on hold currently, pending patient tolerance Recommend subsequent telehealth session and/or phone follow-up appointment to be scheduled in 2 weeks; earlier [...] 80 given participation in HEP as outlined. PRN - Further treatment goals to be determined pending results of Videofluoroscopic Swallow Study/Modified Barium Swallow Study [VFSS/MBSS] and/or Flexible/Fiberoptic Endoscopic Evaluation of Swallowing [FEES] as deemed necessary. Plan: Subsequent session in 2 weeks to re-assess, discuss rescheduling of VFSS/MBSS as appropriate; address continued trismus education as needed, intervention for direct treatment planning/implementation,review of additional strategies to aid in swallowing/speech abilities and support quality of life. Please feel free to contact me with any questions or concerns regarding Mr. Pickering's care. Carrie Jacob MA CCC-PLAYGROUND OFFICIAL Speech-Language Pathologist [email or web address] documented in this encounter Plan of Treatment Upcoming Encounters Date Type Department Care Team (Late st Contact Info) Description 05/31/2024 11:30 AM EST Office Visit Hematology/Oncolog y at [address] [phone] Tej Tipton MD [address] [facility] [place] [address] Stacy Valle APRN [facility] [place] [address] 06/01/2024 10:30 AM EST Scheduled View Only [place] [phone] 06/01/2024 11:00 AM EST Office Visit [place] [phone] Luis E Chin MD [facility] DR RADIATION ONCOLOGY [place], [place] [phone] 06/04/2024 8:30 AM EST Hospital Encounter [place] [address] Rayshawn Suresh MD [facility] [place] [address] 06/04/2024 8:30 AM EST - 06/04/2024 1:05 PM EST [place] [address] Rayshawn Suresh MD [facility] [place] [address] @THORACOSCOPY, SURG; W PLEURODESIS (WRVU 10.83) Scheduled [...] encounter Visit Diagnoses Diagnosis Dysphagia, oropharyngeal phase documented in this encounter Care Teams Claims Collector Relationship Specialty Start Date End Date Tiny Walters, BATSHEVA [address] [place] [phone] PCP - General Family Medicine 12/01/19 04/07/24 documented as of this encounter
--- OUTSIDE RECORDS SUMMARY | 2024-05-31 01:25 | XMS_ITS | Encounter Summary ---
Author Organization [facility] Address [facility] [address] Care Team Providers Care General Office Worker Name Role Phone Tiny Walters APRN Primary Care Provider +1- [phone] Reason for Visit * Reason Comments Chemotherapy Cycle 1, Day 43 - Ci splatin * Treatment/Therapy Plan Authorization (Routine) - Closed Specialty Diagnoses / Procedures Referred By Contac t Referred To Contact Diagnoses Tonsil cancer Dehydration Drug-induced nausea and vomiting Procedures TC PALONOSETRON HCL, 25MCG, INJECTION (ALOXI) TC APREPITANT, 1 MG, INJECTION TC CISPLATIN, POWDER OR SOLUTION, 10MG, INJECTION Gume Christy MD [address] [place] [address] [place] [address] [facility] Hem Onc Infusion [address] [place] [phone] Referral ID Status Reason Start Date Expiration Date Visits Re quested Visits Authorized [id number] Closed 01/24/2020 04/17/2021 30 0 Encounter Details Date Type Department Care Team (Late st Contact Info) Description 04/10/2020 11:00 AM EST Infusion Hematology Oncology at [address] [phone] Dehydration; Tonsil cancer Social History [...] Progress Notes * Diana Sheets RN - 04/10/2020 11:00 AM EST INFUSION THERAPY ADMINISTRATION NOTES DIAGNOSIS: Tonsillar cancer CYCLE #: Cycle 1, Day 43 - Cisplatin REASON FOR VISIT: To receive chemotherapy concurrent with radiation. SUBJECTIVE: Zen is not feeling well. He is experiencing dysphagia with excess secretions. He is fatigued. OBJECTIVE: VSS. Seen by provider. Ready to treat. LAB DATA: WBC - 3.28, H/H - 10.9/30.6, Plt Ct - 198, ANC - 2.40, Lytes wnl, BUN/CR - 23/1.1, MG++ -1.7 IV ACCESS: Port accessed off site, flushes readily with brisk blood return. Pre administration: Chemotherapy orders independently verified for drug name, route, and dosage per patient's height, weight and BSA by Shirley Sheets RN and [facility]. REACTIONS (DESCRIPTION, TIME, INTERVENTION AND EFFECTIVENESS) none ASSESSMENT: Zen was awake, alert and tolerated treatment well. Port flushed with 20 cc's of NS and 500 units of heparin and remains accessed for hydration tomorrow. PLAN: Return to clinic tomorrow. documented in this encounter Plan of Treatment Upcoming Encounters Date Type Department Care Team (Late st Contact Info) Description 05/31/2024 11:30 AM EST Office Visit Hematology/Oncolog y at [address] [phone] Tej Tipton MD [address] [facility] HEMATOLOGY & [place] [address] Stacy Valle APRN [facility] [place] [place] [address] 06/01/2024 10:30 AM EST Scheduled View [place] [address] 06/01/2024 11:00 AM EST Office Visit [place] [address] Luis E Chin MD [facility] [place] [address] 06/04/2024 8:30 AM EST Hospital Encounter [place] [phone] Rayshawn Suresh MD [facility] [place] [address] 06/04/2024 8:30 AM EST - 06/04/2024 1:05 PM EST Surgery [place] [phone] Rayshawn Suresh MD [facility] [place] [address] @THORACOSCOPY, SURG; W PLEURODESIS (WRVU 10.83) Scheduled [...] over 2 Minutes, ONCE, 1 dose, On 04/10/20 at 1115, Alternative administration of IV push over 2 minutes is a recommendation from the memory care program director. Administer prior to chemotherapy., Routine Given 04/10/2020 11:19 AM EST 130 mg CISplatin (Platinol) 79 mg in sodium chloride 0.9% 329 mL infusion 79 mg (rounded from 79.2 mg = 40 mg/m2/dose ? 1.98 m2 Treatment Plan BSA from Recorded weight), Intravenous, ONCE, 1 dose, On Fri04/10/20 at 1215, Administer over 60 Minutes, Warning Vesicant/Irritant Medication New Bag 04/10/2020 12:08 PM EST 79 mg 329 mL/hr dexamethasone (Decadron) injection 10 mg 10 mg, Intravenous, ONCE, 1 dose, On Fri04/10/20 at 1115, Administer prior to chemotherapy Given 04/10/2020 11:19 AM EST 10 mg heparin (pf) (porcine) (100 units/mL) flush 5 mL syringe 500 Units 500 Units, Intravenous, ONCE PRN, Starting on Fri04/10/20 at 1055, Until Fri04/10/20 at 1612, Line Care, Refer to Intravenous (IV) Procedure: Accessing Implanted Vascular Access Devices (654) procedure and/or Intravenous (IV) Job Aid: Adult Flushing & Catheter Care (1995) job aid for additional information regarding guidelines and administration., Routine Given 04/10/2020 1:40 PM EST 500 Units palonosetron (Aloxi) (0.25 mg/mL) injection 0.25 mg 0.25 mg, Intravenous, ONCE, 1 dose, On Fri04/10/20 at 1115, Administer over 30 seconds. Administer prior to chemotherapy, Routine Given 04/10/2020 11:19 AM EST 0.25 mg sodium chloride 0.9 % (flush) flush 5-20 mL 5-20 mL, Intravenous, EVERY 1 MIN PRN, Starting on Fri04/10/20 at 1055, Until Fri04/10/20 at 1612, Line Care, Flush pertains to all indwelling lines. Flush per protocol found in the job aid using the link provided on this medication record. Refer to Intravenous (IV) Job Aid: Adult Flushing & Catheter Care (6490) job aid for additional information regarding guidelines and administration., Routine Given 04/10/2020 1:40 PM EST 20 mLs sodium chloride 0.9% infusion 1,000 mL, at 1,000 mL/hr, Intravenous, CONTINUOUS, Starting on Fri04/10/20 at 1115, Until Fri04/10/20 at 1214, Pre-CISplatin New Bag 04/10/2020 11:02 AM EST 1,000 mLs 1000 mL/hr sodium chloride 0.9% infusion 500 mL, at 500 mL/hr, Intravenous, CONTINUOUS, Starting on Fri04/10/20 at 1315, Until Fri04/10/20 at 1414, Post CISplatin New Bag 04/10/2020 12:02 PM EST 500 mLs 500 mL/hr documented in this encounter Care Teams General Office Worker Relationship Specialty Start Date End Date Tiny Walters, HIGH SCHOOL TUTOR [address] [place] [phone] PCP - General Family Medicine 12/01/19 04/07/24 documented as of this encounter
--- OUTSIDE RECORDS SUMMARY | 2024-05-31 01:25 | XMS_ITS | Encounter Summary ---
Author Organization [facility] Address [facility] [place] [address] Care Team Providers Care Special Systems Technician Name Role Phone Tiny Walters APRN Primary Care Provider +1- [phone] Reason for Visit * Reason Comments Dehydration * Treatment/Therapy Plan Authorization (Routine) - Closed Specialty Diagnoses / Procedures Referred By Contac t Referred To Contact Diagnoses Tonsil cancer Dehydration Drug-induced nausea and vomiting Procedures TC PALONOSETRON HCL, 25MCG, INJECTION (ALOXI) TC APREPITANT, 1 MG, INJECTION TC CISPLATIN, POWDER OR SOLUTION, 10MG, INJECTION Gume Christy MD [address] [place] [address] [place] [address] [facility] Hem Onc Infusion [address] [place] [phone] Referral ID Status Reason Start Date Expiration Date Visits Re quested Visits Authorized [id number] Closed 01/24/2020 04/17/2021 30 0 Encounter Details Date Type Department Care Team (Late st Contact Info) Description 04/14/2020 1:00 PM EST Infusion Hematology Oncology at [address] [phone] Dehydration; Tonsil cancer Social History [...] Sign Reading Time Taken Comments Blood Pressure 117/68 04/14/2020 1:08 PM EST Pulse 82 04/14/2020 1:08 PM EST Temperature 36.3 ??C (97.3 ??F) 04/14/2020 1:08 PM ES T Respiratory Rate 18 04/14/2020 1:08 PM EST Oxygen Saturation 100% 04/14/2020 1:08 PM EST Inhaled Oxygen Concentration - - Weight 74.8 kg (164 lb 12.8 oz) 04/14/2020 1:08 PM EST Height 170.5 cm (5' 7.13) 04/14/2020 1:08 PM ES T Body Mass Index 25.71 04/14/2020 1:08 PM EST documented in this encounter Progress Notes * Maurilio Jennings, RN - 04/14/2020 1:00 PM EST INFUSION THERAPY ADMINISTRATION NOTES DIAGNOSIS: Head/Neck CA (tonsil) REASON FOR VISIT: Hydration SUBJECTIVE Zen offers no complaints. OBJECTIVE LAB DATA: N/A REACTIONS (DESCRIPTION, TIME, INTERVENTION AND EFFECTIVENESS)none ASSESSMENT Zen was awake, alert and she tolerated treatment well. Port flushed with 20 ml NS and 5oo unitsHeparin then de accessed PLAN Return to clinic per routine. documented in this encounter Plan of Treatment Upcoming Encounters Date Type Department Care Team (Late st Contact Info) Description 05/31/2024 11:30 AM EST Office Visit Hematology/Oncolog y at [address] [phone] Tej Tipton MD [address] [facility] HEMATOLOGY & [place] [address] Stacy Valle APRN [facility] [place] [address] 06/01/2024 10:30 AM EST Scheduled View [place] [address] 06/01/2024 11:00 AM EST Office [place] [address] Luis E Chin MD [facility] [place] [address] 06/04/2024 8:30 AM EST Hospital Encounter [place] [phone] Rayshawn Suresh MD [facility] [place] [address] 06/04/2024 8:30 AM EST - 06/04/2024 1:05 PM EST Surgery [place] [phone] Rayshawn Suresh MD [facility] [place] [address] @THORACOSCOPY, SURG; W PLEURODESIS (WRVU 10.83) Scheduled [...] Intravenous, DAILY, 1 dose, First dose on Fri04/14/20 at 1330 New Bag 04/14/2020 1:17 PM EST 1,000 mLs documented in this encounter Care Teams Special Systems Technician Relationship Specialty Start Date End Date Tiny Walters APRN [address] [place] [phone] PCP - General Family Medicine 12/01/19 04/07/24 documented as of this encounter
--- OUTSIDE RECORDS SUMMARY | 2024-05-31 01:25 | XMS_ITS | Encounter Summary ---
Author Organization [facility] Address [facility] [place] [address] Care Team Providers Care Fluorescent Solution Mixer Name Role Phone Tiny Walters APRN Primary Care Provider +1- [phone] Reason for Visit * Reason Comments Other Hydration IV Medication Dexamethasone, Ondan setron * Treatment/Therapy Plan Authorization (Routine) - Closed Specialty Diagnoses / Procedures Referred By Contac t Referred To Contact Diagnoses Tonsil cancer Dehydration Drug-induced nausea and vomiting Procedures TC PALONOSETRON HCL, 25MCG, INJECTION (ALOXI) TC APREPITANT, 1 MG, INJECTION TC CISPLATIN, POWDER OR SOLUTION, 10MG, INJECTION Gume Christy MD [address] [place] [address] [place] [address] [facility] Hem Onc Infusion [address] [place] [phone] Referral ID Status Reason Start Date Expiration Date Visits Re quested Visits Authorized [id number] Closed 01/24/2020 04/17/2021 30 0 Encounter Details Date Type Department Care Team (Late st Contact Info) Description 04/13/2020 12:00 PM EST Infusion Hematology Oncology at [address] [phone] Dehydration; Tonsil cancer Social History [...] Sign Reading Time Taken Comments Blood Pressure 112/78 04/13/2020 12:20 PM EST Pulse 86 04/13/2020 12:20 PM EST Temperature 36.2 ??C (97.1 ??F) 04/13/2020 12:[address] Respiratory Rate 20 04/13/2020 12:20 PM EST Oxygen Saturation - - Inhaled Oxygen Concentration - - Weight 73.5 kg (162 lb) 04/13/2020 12:20 PM EST Height 170.5 cm (5' 7.13) 04/13/2020 12:[address] Body Mass Index 25.28 04/13/2020 12:20 PM EST documented in this encounter Progress Notes * Tequila Hyde RN - 04/13/2020 12:00 PM EST INFUSION THERAPY ADMINISTRATION NOTES DIAGNOSIS: Tonsillar cancer REASON FOR VISIT: Hydration, antiemetics SUBJECTIVE Zen offers no complaints. OBJECTIVE IV ACCESS: Mediport REACTIONS (DESCRIPTION, TIME, INTERVENTION AND EFFECTIVENESS) none ASSESSMENT Zen was awake, alert and tolerated treatment well. Mediport left accessed for tomorrow's hydration. PLAN Return to clinic tomorrow as scheduled for next hydration. documented in this encounter Plan of Treatment Upcoming Encounters Date Type Department Care Team (Late st Contact Info) Description 05/31/2024 11:30 AM EST Office Visit Hematology/Oncolog y at [address] [phone] Tej Tipton MD [address] [facility] [address] HEMATOLOGY & [place] [address] Stacy Valle APRN [facility] [place] [address] 06/01/2024 10:30 AM EST Scheduled View Only [place] [address] 06/01/2024 11:00 AM EST Office Visit [place] [address] Luis E Chin MD [facility] [place] [address] 06/04/2024 8:30 AM EST Hospital Encounter [place] [phone] Rayshawn Suresh MD [facility] [place] [address] 06/04/2024 8:30 AM EST - 06/04/2024 1:05 PM EST Surgery [place] [phone] Rayshawn Suresh MD [facility] [place] [address] @THORACOSCOPY, SURG; W PLEURODESIS (WRVU 10.83) Scheduled [...] mg), Intravenous, ONCE, 1 dose, On Ambreen 04/13/20 at 1200 Given 04/13/2020 12:55 PM EST 5.2 mg heparin (pf) (porcine) (100 units/mL) flush 5 mL syringe 500 Units 500 Units, Intravenous, ONCE PRN, Starting on Ambreen 04/13/20 at 0958, Until Ambreen 04/13/20 at 1725, Line Care, Refer to Intravenous (IV) Procedure: Accessing Implanted Vascular Access Devices (654) procedure and/or Intravenous (IV) Job Aid: Adult Flushing & Catheter Care (9799) job aid for additional information regarding guidelines and administration., Routine Given 04/13/2020 1:34 PM EST 500 Units ondansetron (Zofran) 16 mg in sodium chloride 0.9% 58 mL infusion 16 mg 16 mg, Intravenous, ONCE, 1 dose, On Ambreen 04/13/20 at 1200, Administer over 15 Minutes New Bag 04/13/2020 12:06 PM EST 16 mg 232 mL/hr sodium chloride 0.9 % (flush) flush 5-20 mL 5-20 mL, Intravenous, EVERY 1 MIN PRN, Starting on Ambreen 04/13/20 at 0958, Until Ambreen 04/13/20 at 1725, Line Care, Flush pertains to all indwelling lines. Flush per protocol found in the job aid using the link provided on this medication record. Refer to Intravenous (IV) Job Aid: Adult Flushing & Catheter Care (1348) job aid for additional information regarding guidelines and administration., Routine Given 04/13/2020 1:34 PM EST 20 mLs sodium chloride 0.9% infusion 1,000 mL, at 1,000 mL/hr, Intravenous, CONTINUOUS, Starting on Ambreen 04/13/20 at 1200, Until Ambreen 04/13/20 at 1259 New Bag 04/13/2020 12:06 PM EST 1,000 mLs 1000 mL/hr documented in this encounter Care Teams Fluorescent Solution Mixer Relationship Specialty Start Date End Date Tiny Walters APRN [address] [place] [phone] PCP - General Family Medicine 12/01/19 04/07/24 documented as of this encounter
--- OUTSIDE RECORDS SUMMARY | 2024-05-31 01:25 | XMS_ITS | Encounter Summary ---
Author Organization [facility] [place] [address] Care Team Providers Care Last Model Department Supervisor Name Role Phone Romeo Tiny Lindsay APRN Primary Care Provider +1- [phone] Encounter Details Date Type Department Care Team (Late Contact Info) Description 04/19/2020 Notes Only Radiation Oncology at [address] [phone] Janeen Duarte RN Social History [...] as of this encounter Progress Notes * Janeen Duarte RN - 04/19/2020 6:18 PM EST Background: Short Term Disability Claim information request. Routed requested provider office notes from 03/13/2020 to present to [facility] at [phone]. [employer] Medical Request Form faxed to [facility] as requested at [phone]. documented in this encounter Plan of Treatment Upcoming Encounters Date Type Department Care Team (Late Contact Info) Description 05/31/2024 11:30 AM EST Office Visit Hematology/Oncolog y at [address] [phone] Tej Tipton MD 2300 [facility] HEMATOLOGY & [place] [address] Stacy Valle APRN [facility] [place] [address] 06/01/2024 10:30 AM EST Scheduled View Only [place] [address] 06/01/2024 11:00 AM EST Office Visit [place]iation [place] [phone] Luis E Chin MD [facility] [place] [address] 06/04/2024 8:30 AM EST Hospital Encounter [place] [address] Rayshawn Suresh MD [facility] [place] [address] 06/04/2024 8:30 AM EST - 06/04/2024 1:05 PM EST Surgery [place] [address] Rayshawn Suresh MD [facility] [place] [address] @THORACOSCOPY, SURG; W PLEURODESIS (WRVU 10.83) Scheduled [...] on filedocumented in this encounter Care Teams Last Model Department Supervisor Relationship Specialty Start Date End Date Tiny Walters APRN [address] [place] [phone] PCP - General Family Medicine 12/01/19 04/07/24 documented as of this encounter
--- OUTSIDE RECORDS SUMMARY | 2024-05-31 01:25 | XMS_ITS | Encounter Summary ---
Author Organization [facility] Address [facility] [place] [address] Care Team Providers Care Online Merchandiser Name Role Phone Tiny Walters APRN Primary Care Provider +1- [phone] Encounter Details Date Type Department Care Team (Late st Contact Info) Description 04/17/2020 1:00 PM EST Office Visit Hematology/Oncology at [address] [phone] Gume Christy MD [address] [place] [address] [place] [address] Mucositis due to radiation therapy Social History Tobacco Use Types Packs/Day Years [...] Sign Reading Time Taken Comments Blood Pressure 133/82 04/17/2020 1:06 PM EST Pulse 110 04/17/2020 1:06 PM EST Temperature 36.7 ??C (98 ??F) 04/17/2020 1:06 PM EST Respiratory Rate 16 04/17/2020 1:06 PM EST Oxygen Saturation 100% 04/17/2020 1:06 PM EST Inhaled Oxygen Concentration - - Weight 73.6 kg (162 lb 3.2 oz) 04/17/2020 1:06 P M EST Height 170.5 cm (5' 7.13) 04/17/2020 1:06 PM ES T Body Mass Index 25.31 04/17/2020 1:06 PM EST documented in this encounter Progress Notes * Gume Christy MD - 04/17/2020 1:00 PM EST Hematology/Oncology Clinic [facility] Patient Active Problem List Diagnosis ??? [...] inflation), 16 Fr, placed by [facility] 02/11/2020 ??? Raynaud's syndrome ONCBCN ONCOLOGY (AMB) 02/29/2020 03/06/2020 Day, Cycle Day 1, Cycle 1 Day 8, Cycle 1 CISplatin (Platinol) IV 40 mg/m2/dose = 79 mg 40 mg/m2/dose = 79 mg ONCBCN ONCOLOGY (AMB) 03/13/2020 03/20/2020 Day, Cycle Day 15, Cycle 1 Day 22, Cycle 1 CISplatin (Platinol) IV 40 mg/m2/dose = 79 mg 40 mg/m2/dose = 79 mg ONCBCN ONCOLOGY (AMB) 03/27/2020 04/03/2020 Day, Cycle Day 29, Cycle 1 Day 36, Cycle 1 CISplatin (Platinol) IV 40 mg/m2/dose = 79 mg 40 mg/m2/dose = 79 mg ONCBCN ONCOLOGY (AMB) 04/10/2020 Day, Cycle Day 43, Cycle 1 CISplatin (Platinol) IV 40 mg/m2/dose = 79 mg Med Onc checkup and IV hydration. Completed chemo 04/10; due to complete radiation tomorrow. 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 His phlegm continuesto be very copious and annoying, requiring him to use suction and spit frequently. His sleep is still interrupted by this. He has been trying to keep up with hydration through the G-tube and we have given him extra intravenous hydration total of 3 times per week. All this hydration helps but he still has trouble keeping up with the phlegm volume. Dr. Rae prescribed gabapentin for his throat pain last week. He tried taking this by mouth but it caused burning. It also made him feel dizzy. Nutrition is now all through the G-tube and he swallows only a few sips of water per day. His G-tube is been functioning fine. Bowels have been regular. Energy level is low as expected, with KPS 70-80. No chemotherapy-specific problems of significance; he still gets mild occasional tinnitus but nothing persistent or progressive. No peripheral neuropathy. No new infectious complications. Physical exam: He looks tired but otherwise well. He has hair loss across the occiput in a horizontal radiation-field related manner. Oral exam shows no visible tumor in the tonsil, with grade 3 mucositis across the tonsillar bed andposterior soft palate. There is a streak of mucositis across the right dorsal tongue. He still has moderate trismus with discomfort on opening. Neck exam shows no adenopathy. He has grade 1 hyperpigmentation in the radiation field The chest is clear Cardiac exam is normal Mediport is benign Abdomen is benign with no hepatosplenomegaly or masses. The G-tube site is clean Extremities are normal, no clubbing cyanosis or nail changes Neurologic exam shows normal motor and sensory function. Reflexes 2+. Labs: Electrolytes notable for sodium slightly lower at 133. BUN is elevated at 27, creatinine stable at 1.09. Hepatic enzymes normal. Albumin slightly low at 3.3. White count is 4.04, hemoglobin 10.5, platelets 195. Impression: Good response at the primary tumor, with expected toxicities of chemoradiation. Hydration remains a challenge. Copious phlegm remains his biggest problem. Increasing mucositis pain is an emerging problem; Neurontin was helpful with the pain but was not well tolerated because of dizziness. Plan: 1. Proceed with IV hydration today. We will plan on repeating this on Friday and of this week if necessary. 2. Switch pain medication to combination of acetaminophen plus oxycodone liquid 5 mg every 4 hours as needed. We recommended that he try crushing and dissolving and acetaminophen capsule in addition to the oxycodone liquid and take both through the G-tube. Sufficient oxycodone was given for an anticipated 14-day course, at which point I would expect he would no longer need narcotic support. 3. He has a speech therapy visit coming up; I will request consideration of gag desensitization therapy as per speech therapy. 4. Follow-up next week for clinical checkup; if he is feeling well and does not feel the need to come in, he knows to call and cancel. Many patients require periodic IV hydration for a number of weeks following completion of therapy. Gume Christy MD, FACP art editor Hematology/Oncology Section [facility]/[address] [address] Voice recognition software used for this note; please excuse senior courtroom clerk errors. I personally reviewed past medical, surgical, family medical histories, reviewed current medications, vital signs, labs, and performed full review of systems. These are documented below the narrativefor clarity and succinctness. Outpatient Medications Marked as Taking for the 04/17/20 encounter (Office Visit) with Gume Christy MD Medication Sig Dispense Refill ??? gabapentin (Neurontin) 250 mg/5 mL Solution By mouth: 5 ml 1st day once, then 5 ml twice a day x 2 days, then 5 ml three times a day 470 mL 1 ??? guaiFENesin ER (Mucinex) 600 mg Tablet Extended Release 12hr Take 1,200 mg by mouth 2 times daily. ??? venlafaxine XR (Effexor-XR) 75 mg Capsule, Sust. Release 24 hr TAKE ONE CAPSULE BY MOUTH EVERY DAY Review of Systems: Review of systems is negative for other MARKET STALL VENDOR, bone, pulmonary, cardiac, GI, , extremity, neurologic, endocrine, skin, constitutional, emotional, or functional problems. Vitals Office Visit from 04/17/2020 in Hematology/Oncology at [facility] Weight 73.6 kg (162 lb 3.2 oz) Height 170.5 cm (5' 7.13) BSA (Calculated - sq m) 1.87 sq meters BMI (Calculated) 25.31 Temp 36.7 ??C (98 ??F) Temp src Temporal Heart Rate (!) 110 Heart Rate Source Right, NIBP Resp 16 BP 133/82 BP Location Right arm Patient Position Sitting SpO2 100 % Karnofsky Score 80 Body surface area is 1.87 meters squared. Wt Readings from Last 3 Encounters: 04/17/20 73.6 kg (162 lb 3.2 oz) 04/14/20 74.8 kg (164 lb 12.8 oz) 04/13/20 73.5 kg (162 lb) No results found for this or any previous visit (from the past 72 hour(s)). ++++++++++++++++++++++++++++++++++++++++++++++++++++ documented in this encounter Plan of Treatment Upcoming Encounters Date Type Department Care Team (Late st Contact Info) Description 05/31/2024 11:30 AM EST Office Visit Hematology/Oncolog y at [address] [phone] Tej Tipton MD [address] [facility] [address] HEMATOLOGY [place] [address] Stacy Valle APRN [facility] [place] [address] 06/01/2024 10:30 AM EST Scheduled View Only [place] [address] 06/01/2024 11:00 AM EST Office Visit [place] [phone] Luis E Chin MD [facility] [place] [address] 06/04/2024 8:30 AM EST Hospital Encounter [place] [phone] Rayshawn Suresh MD [facility] [place] [address] 06/04/2024 8:30 AM EST - 06/04/2024 1:05 PM EST Surgery [place] [address] Rayshawn Suresh MD [facility] [place] [address] @THORACOSCOPY, SURG; W PLEURODESIS (WRVU 10.83) Scheduled Procedures Name Priority Associated Diagnoses Date/Ti me @THORACOSCOPY, SURG; W PLEURODESIS (WRVU 10.83) metastatic pleural effusion 06/04/2024 8:30 AM EST BRONCHOSCOPY, DIAGNOSTIC (WRVU 2.53) metastatic pleural effusion 06/04/2024 8:30 AM EST DIONNA\ALMA.CATHETER,TUNNELED, WITH SQ PORT OR PUMP OVER 5YR (WRVU 5.79) metastatic pleural effusion 06/04/2024 8:30 AM EST documented as of this encounter Visit Diagnoses Diagnosis Mucositis due to radiation therapy Mucositis (ulcerative) due to antineoplastic therapy documented in this encounter Care Teams Online Merchandiser Relationship Specialty Start Date End Date Tiny Walters, [employer] CREWMEMBER [address] [place] [phone] PCP - General Family Medicine 12/01/19 04/07/24 documented as of this encounter
--- OUTSIDE RECORDS SUMMARY | 2024-05-31 01:25 | XMS_ITS | Encounter Summary ---
Author Organization [facility] Address [facility] [place] [address] Care Team Providers Care Balancing Machine Operator Name Role Phone Tiny Walters APRN Primary Care Provider +1- [phone] Reason for Visit * Reason Comments IV Medication Hydration/ anti emet ics * Treatment/Therapy Plan Authorization (Routine) - Closed Specialty Diagnoses / Procedures Referred By Contac t Referred To Contact Diagnoses Tonsil cancer Dehydration Drug-induced nausea and vomiting Procedures TC PALONOSETRON HCL, 25MCG, INJECTION (ALOXI) TC APREPITANT, 1 MG, INJECTION TC CISPLATIN, POWDER OR SOLUTION, 10MG, INJECTION Gume Christy MD [address] [place] [address] [place] [address] [facility] Hem Onc Infusion [address] [place] [phone] Referral ID Status Reason Start Date Expiration Date Visits Re quested Visits Authorized [id number] Closed 01/24/2020 04/17/2021 30 0 Encounter Details Date Type Department Care Team (Late st Contact Info) Description 03/30/2020 12:00 PM EST Infusion Hematology Oncology at [address] [phone] Tonsil cancer Social History Tobacco [...] as of this encounter Progress Notes * Nik Power RN - 03/30/2020 12:00 PM EST INFUSION THERAPY ADMINISTRATION NOTES DIAGNOSIS: Tonsillar cancer CYCLE #: Cycle 1, Day 32 - hydration and antiemetics REASON FOR VISIT: To receive hydration SUBJECTIVE: Zen offers no complaints. OBJECTIVE: VSS. IV ACCESS: Port accessed on adm, flushes readily with brisk blood return. Pre administration: Chemotherapy orders independently verified for drug name, route, and dosage per patient's height, weight and BSA by NKI POWER, ARIK and [facility]. REACTIONS (DESCRIPTION, TIME, INTERVENTION AND EFFECTIVENESS) none [...] AM EST Office Visit Hematology/Oncolog y at [address] [phone] [facility] [address] Stacy Valle APRN [facility] [place] [address] 06/01/2024 10:30 AM EST Scheduled View [place] [address] 06/01/2024 11:00 AM EST Office [place] [phone] Luis E Chin MD [facility] [place] [address] 06/04/2024 8:30 AM EST Hospital Encounter [place] [address] Rayshawn Suresh MD [facility] [place] [address] 06/04/2024 8:30 AM EST - 06/04/2024 1:05 PM EST Surgery [place] [phone] Rayshawn Suresh MD [facility] [place] [address] @THORACOSCOPY, SURG; W PLEURODESIS (WRVU 10.83) Scheduled [...] mg), Intravenous, ONCE, 1 dose, On Ambreen 03/30/20 at 1245 Given 03/30/2020 12:57 PM EST 5.2 mg heparin (pf) (porcine) (100 units/mL) flush 5 mL syringe 500 Units 500 Units, Intravenous, ONCE PRN, Starting on Ambreen 03/30/20 at 1223, Until Ambreen 03/30/20 at 1651, Line Care, Refer to Intravenous (IV) Procedure: Accessing Implanted Vascular Access Devices (304) procedure and/or Intravenous (IV) Job Aid: Adult Flushing & Catheter Care (0681) job aid for additional information regarding guidelines and administration., Routine Given 03/30/2020 1:32 PM EST 500 Units ondansetron (Zofran) tablet 16 mg 16 mg, Oral, ONCE, 1 dose, On Ambreen 03/30/20 at 1245, Routine Given 03/30/2020 12:56 PM EST 16 mg sodium chloride 0.9 % (flush) flush 5-20 mL 5-20 mL, Intravenous, EVERY 1 MIN PRN, Starting on Ambreen 03/30/20 at 1223, Until Ambreen 03/30/20 at 1651, Line Care, Flush pertains to all indwelling lines. Flush per protocol found in the job aid using the link provided on this medication record. Refer to Intravenous (IV) Job Aid: Adult Flushing & Catheter Care (8767) job aid for additional information regarding guidelines and administration., Routine Given 03/30/2020 1:32 PM EST 20 mLs sodium chloride 0.9% infusion 1,000 mL, at 1,000 mL/hr, Intravenous, CONTINUOUS, Starting on Ambreen 03/30/20 at 1245, Until Ambreen 03/30/20 at 1344 New Bag 03/30/2020 12:32 PM EST 1,000 mLs 1000 mL/hr documented in this encounter Care Teams Balancing Machine Operator Relationship Specialty Start Date End Date Tiny Walters APRN [address] [place] [phone] PCP - General Family Medicine 12/01/19 04/07/24 documented as of this encounter
--- OUTSIDE RECORDS SUMMARY | 2024-05-31 01:25 | XMS_ITS | Encounter Summary ---
Author Organization [facility] Agustina [place] [address] Care Team Providers Care Veneer Puller Name Role Phone Romeo Tiny Lindsay APRN Primary Care Provider +1- [phone] Reason for Visit * Reason Onset Date Comments Follow-up 04/27/2020 Encounter Details Date Type Department Care Team (Late Contact Info) Description 04/27/2020 Telephone Hematology/Oncology at [address] [phone] Taniya Barajas RN Follow-up Social History Tobacco Use Types Packs/Day Years [...] Telephone Encounter - Taniya Barajas RN - 04/27/2020 11:[address] Christy reviewed pt's chest xray from Friday04/24/20. He states it looks fine and nothing to do. documented in this encounter Plan of Treatment Upcoming Encounters Date Type Department Care Team (Late Contact Info) Description 05/31/2024 11:30 AM EST Office Visit Hematology/Oncolog y at [address] [phone] Tej Tipton MD 2300 [facility] HEMATOLOGY [place] [address] Stacy Valle APRN [facility] [place] [address] 06/01/2024 10:30 AM EST Scheduled View Only Radiation Oncology at [place] [address] 06/01/2024 11:00 AM EST Office Visit Radiation Oncology at [place] [phone] Luis E Chin MD [facility] [place] [address] 06/04/2024 8:30 AM EST Hospital Encounter Main Operating Room [place] [phone] Rayshawn Suresh MD [facility] [place] [address] 06/04/2024 8:30 AM EST - 06/04/2024 1:05 PM EST Surgery Main Operating Room [place] [phone] Rayshawn Suresh MD [facility] [place] [address] @THORACOSCOPY, SURG; W PLEURODESIS (WRVU 10.83) Scheduled [...] on filedocumented in this encounter Care Teams Veneer Puller Relationship Specialty Start Date End Date Tiny Walters APRN [address] [place] [phone] PCP - General Family Medicine 12/01/19 04/07/24 documented as of this encounter
--- OUTSIDE RECORDS SUMMARY | 2024-05-31 01:25 | XMS_ITS | Encounter Summary ---
Author Organization [facility] Address [facility] [place] [address] Care Team Providers Care Microphone Boom Operator Name Role Phone Tiny Walters APRN Primary Care Provider +1- [phone] Reason for Visit * Reason Comments IV Medication IV hydration and Zof ran * Treatment/Therapy Plan Authorization (Routine) - Closed Specialty Diagnoses / Procedures Referred By Contac t Referred To Contact Diagnoses Tonsil cancer Dehydration Drug-induced nausea and vomiting Procedures TC PALONOSETRON HCL, 25MCG, INJECTION (ALOXI) TC APREPITANT, 1 MG, INJECTION TC CISPLATIN, POWDER OR SOLUTION, 10MG, INJECTION Gume Christy MD [address] [place] [address] [place] [address] [facility] Hem Onc Infusion [address] [place] [phone] Referral ID Status Reason Start Date Expiration Date Visits Re quested Visits Authorized [id number] Closed 01/24/2020 04/17/2021 30 0 Encounter Details Date Type Department Care Team (Late st Contact Info) Description 04/24/2020 10:30 AM EST Infusion Hematology Oncology at [address] [phone] Dehydration; Tonsil cancer; Drug-induced nausea [...] as of this encounter Progress Notes * Macy Power RN - 04/24/2020 10:30 AM EST INFUSION THERAPY ADMINISTRATION NOTES DIAGNOSIS: Head/Neck CA (tonsil) REASON FOR VISIT: Hydration and Zofran SUBJECTIVE Zen offers no complaints other than it being a not good day. Just feeling generally poor. OBJECTIVE LAB DATA: N/A REACTIONS (DESCRIPTION, TIME, [...] EST Office Visit Hematology/Oncolog y at [address] [phone] Tej Tipton MD 2300 [facility] DR HEMATOLOGY & [place] [address] Stacy Valle APRN [facility] [place] [address] 06/01/2024 10:30 AM EST Scheduled View [place] [phone] 06/01/2024 11:00 AM EST Office [place] [phone] Luis E Chin MD [facility] DR [place] [address] 06/04/2024 8:30 AM EST Hospital Encounter Main [place] [phone] Rayshawn Suresh MD [facility] DR [place] [address] 06/04/2024 8:30 AM EST - 06/04/2024 1:05 PM EST Surgery [place] [address] Rayshawn Suresh MD [facility] DR [place] [address] @THORACOSCOPY, SURG; W PLEURODESIS (WRVU 10.83) Scheduled [...] mg/mL) injection 8 mg 8 mg, Intravenous, ONCE, 1 dose, On Fri04/24/20 at 1100 Given 04/24/2020 11:28 AM EST 8 mg sodium chloride 0.9% infusion 1,000 mL (1 L), Intravenous, DAILY, 1 dose, First dose on Fri04/24/20 at 1045 New Bag 04/24/2020 10:29 AM EST 1,000 mLs documented in this encounter Care Teams Microphone Boom Operator Relationship Specialty Start Date End Date Tiny Walters APRN [address] [place] [phone] PCP - General Family Medicine 12/01/19 04/07/24 documented as of this encounter
--- OUTSIDE RECORDS SUMMARY | 2024-05-31 01:25 | XMS_ITS | Encounter Summary ---
Author Organization [facility] Address [facility] [place] [address] Care Team Providers Care Bit Setter Name Role Phone Tiny Walters APRN Primary Care Provider +1- [phone] Reason for Visit * Reason Comments IV Medication Hydration * Treatment/Therapy Plan Authorization (Routine) - Closed Specialty Diagnoses / Procedures Referred By Contac t Referred To Contact Diagnoses Tonsil cancer Dehydration Drug-induced nausea and vomiting Procedures TC PALONOSETRON HCL, 25MCG, INJECTION (ALOXI) TC APREPITANT, 1 MG, INJECTION TC CISPLATIN, POWDER OR SOLUTION, 10MG, INJECTION Gume Christy MD [address] [place] [address] [place] [address] [facility] Hem Onc Infusion [address] [place] [phone] Referral ID Status Reason Start Date Expiration Date Visits Re quested Visits Authorized [id number] Closed 01/24/2020 04/17/2021 30 0 Encounter Details Date Type Department Care Team (Late st Contact Info) Description 04/17/2020 2:00 PM EST Infusion Hematology Oncology at [address] [phone] Dehydration; Tonsil cancer Social History [...] of this encounter Progress Notes * Elke Toledo, RN - 04/17/2020 2:00 PM EST INFUSION THERAPY ADMINISTRATION NOTES DIAGNOSIS: [...] EST Office Visit Hematology/Oncolog y at [address] [phone] Tej Tipton MD 2300 [facility] HEMATOLOGY & [place] [address] Stacy Valle APRN [facility] [place] [address] 06/01/2024 10:30 AM EST Scheduled View Only [place] [phone] 06/01/2024 11:00 AM EST Office Visit [place] [phone] Luis E Chin MD [facility] [place] [address] 06/04/2024 8:30 AM EST Hospital Encounter [place] [phone] Rayshawn Suresh MD [facility] [place] [address] 06/04/2024 8:30 AM EST - 06/04/2024 1:05 PM EST Surgery [place] [address] Rayshawn Suresh MD [facility] [place] [address] @THORACOSCOPY, SURG; W PLEURODESIS (WRVU 10.83) Scheduled [...] Intravenous, DAILY, 1 dose, First dose on 04/17/20 at 1400 New Bag 04/17/2020 2:00 PM EST 1,000 mLs documented in this encounter Care Teams Bit Setter Relationship Specialty Start Date End Date Tiny Walters APRN [address] [place] [phone] PCP - General Family Medicine 12/01/19 04/07/24 documented as of this encounter
--- OUTSIDE RECORDS SUMMARY | 2024-05-31 01:26 | XMS_ITS | Encounter Summary ---
Author Organization Formerly [facility] Address [facility] [place] [address] Care Team Providers Care Metal Punch Press Operator Name Role Phone Tiny Walters APRN Primary Care Provider +1- [phone] Reason for Visit * Reason Comments IV Medication Cycle 1 Day 18 Hydra tion, Anti-emetics * Treatment/Therapy Plan Authorization (Routine) - Closed Specialty Diagnoses / Procedures Referred By Fritz t Referred To Contact Diagnoses Tonsil cancer Dehydration Drug-induced nausea and vomiting Procedures TC PALONOSETRON HCL, 25MCG, INJECTION (ALOXI) TC APREPITANT, 1 MG, INJECTION TC CISPLATIN, POWDER OR SOLUTION, 10MG, INJECTION Gume Christy MD [address] [place] [address] [place] [address] [facility] Hem Onc Infusion [address] [place] [phone] Referral ID Status Reason Start Date Expiration Date Visits Re quested Visits Authorized [id number] Closed 01/24/2020 04/17/2021 30 0 Encounter Details Date Type Department Care Team (Late st Contact Info) Description 03/16/2020 12:30 PM EST Infusion Hematology Oncology at [address] [phone] Tonsil cancer Social History Tobacco [...] Sign Reading Time Taken Comments Blood Pressure 126/75 03/16/2020 12:05 PM EST Pulse 81 03/16/2020 12:05 PM EST Temperature 36.6 ??C (97.9 ??F) 03/16/2020 12:[address] Respiratory Rate 16 03/16/2020 12:05 PM EST Oxygen Saturation 100% 03/16/2020 12:05 PM EST Inhaled Oxygen Concentration - - Weight 77.4 kg (170 lb 9.6 oz) 03/16/2020 12:05 PM EST Height 170.2 cm (5' 7.01) 03/16/2020 12:[address] Body Mass Index 26.71 03/16/2020 12:05 PM EST documented in this encounter Progress Notes * Margie Page RN - 03/16/2020 12:30 PM EST INFUSION THERAPY ADMINISTRATION NOTES DIAGNOSIS:Tonsil Cancer CYCLE #:1 REASON FOR VISIT: Hydration & Anti-emetics SUBJECTIVE Zen offers no complaints. OBJECTIVE IV ACCESS: Mediport accessed, blood return present, flushes easily. REACTIONS (DESCRIPTION, TIME, INTERVENTION AND EFFECTIVENESS) none ASSESSMENT Zen was awake, alert and tolerated treatment well. PLAN Return to clinic per routine. documented in this encounter Plan of Treatment Upcoming Encounters Date Type Department Care Team (Late st Contact Info) Description 05/31/2024 11:30 AM EST Office Visit Hematology/Oncolog y at [address] [phone] Tej Tipton MD [address] [facility] HEMATOLOGY & [place] [address] Stacy Valle APRN [facility] [address] [place]ICAL [place] [address] 06/01/2024 10:30 AM EST Scheduled View Only [place] [address] 06/01/2024 11:00 AM EST Office Visit [place] [address] Luis E Chin MD [facility] DR RADIATION [place] [address] 06/04/2024 8:30 AM EST Hospital Encounter [place] [phone] Rayshawn Suresh MD [facility] DR TH[place]ACIC [place] [address] 06/04/2024 8:30 AM EST - 06/04/2024 1:05 PM EST Surgery [place] [phone] Rayshawn Suresh MD [facility] DR THORACIC [place] [address] @THORACOSCOPY, SURG; W PLEURODESIS (WRVU 10.83) Scheduled [...] mg), Intravenous, ONCE, 1 dose, On Ambreen 03/16/20 at 1230 Given 03/16/2020 12:20 PM EST 5.2 mg heparin, porcine 100 unit/mL flush 500 Units 500 Units, Intravenous, ONCE PRN, Starting on Ambreen 03/16/20 at 1201, Until Ambreen 03/16/20 at 1506, Line Care, Refer to Intravenous (IV) Procedure: Accessing Implanted Vascular Access Devices (654) procedure and/or Intravenous (IV) Job Aid: Adult Flushing & Catheter Care (9482) job aid for additional information regarding guidelines and administration., Routine Given 03/16/2020 1:22 PM EST 500 Units ondansetron (Zofran) tablet 16 mg 16 mg, Oral, ONCE, 1 dose, On Ambreen 03/16/20 at 1230, Routine Given 03/16/2020 12:19 PM EST 16 mg sodium chloride 0.9 % (flush) flush 5-20 mL 5-20 mL, Intravenous, EVERY 1 MIN PRN, Starting on Ambreen 03/16/20 at 1201, Until Ambreen 03/16/20 at 1506, Line Care, Flush pertains to all indwelling lines. Flush per protocol found in the job aid using the link provided on this medication record. Refer to Intravenous (IV) Job Aid: Adult Flushing & Catheter Care (6695) job aid for additional information regarding guidelines and administration., Routine Given 03/16/2020 1:22 PM EST 20 mLs sodium chloride 0.9% infusion 1,000 mL, at 1,000 mL/hr, Intravenous, CONTINUOUS, Starting on Ambreen 03/16/20 at 1230, Until Ambreen 03/16/20 at 1329 New Bag 03/16/2020 12:15 PM EST 1,000 mLs 1000 mL/hr documented in this encounter Care Teams Metal Punch Press Operator Relationship Specialty Start Date End Date Tiny Walters APRN [address] [place] [phone] PCP - General Family Medicine 12/01/19 04/07/24 documented as of this encounter
--- OUTSIDE RECORDS SUMMARY | 2024-05-31 01:26 | XMS_ITS | Encounter Summary ---
Author Organization [facility] Address [facility] [place] [address] Care Team Providers Care Road Consultant Name Role Phone Tiny Walters APRN Primary Care Provider +1- [phone] Reason for Visit * Reason Comments IV Access Port flush Encounter Details Date Type Department Care Team ([facility] Contact Info) Description 03/28/2020 8:00 AM EST Infusion Hematology Oncology at [address] [phone] Tonsil cancer Social History Tobacco [...] Progress Notes * Diana Sheets RN - 03/28/2020 8:00 AM EST INFUSION THERAPY ADMINISTRATION NOTES TIME TREATMENT STARTED: 849 TIME TREATMENT ENDED: 919 DIAGNOSIS: tonsillar cancer REASON FOR VISIT: Port access for SIM. Port flush IV ACCESS: Mediport GAUGE: 19G BLOOD RETURN: yes ANY S/S OF INFECTION/EXTRAVASATIONS: no signs of IV complications observed IV FLUSHED WITH: 20cc NS and 500 units Heparin IV DISCONTINUED: yes ASSESSMENT: Patient tolerated treatment well. PLAN: Return to clinic per routine. documented in this encounter Plan of Treatment Upcoming Encounters Date Type Department Care Team ([facility] Contact Info) Description 05/31/2024 11:30 AM EST Office Visit Hematology/Oncolog y at [address] [phone] Tej Tipton MD [address] [facility] [place]ATOLOGY [place] [address] [facility] [place] [address] 06/01/2024 10:30 AM EST Scheduled View [place] [phone] 06/01/2024 11:00 AM EST Office [place] [phone] [address] MD [facility] [place] [address] 06/04/2024 8:30 AM EST Hospital Encounter [place] [address] [facility] [place] [address] 06/04/2024 8:30 AM EST - 06/04/2024 1:05 PM EST Surgery [place] [address] [facility] [place] [address] @THORACOSCOPY, SURG; W PLEURODESIS (WRVU 10.83) Scheduled [...] tonsil documented in this encounter Care Teams Road Consultant Relationship Specialty Start Date End Date Tiny Walters APRN [address] [place] [phone] PCP - General Family Medicine 12/01/19 04/07/24 documented as of this encounter
--- OUTSIDE RECORDS SUMMARY | 2024-05-31 01:26 | XMS_ITS | Encounter Summary ---
Author Organization [facility] Address [facility] [place] [address] Care Team Providers Care Oil Pipeline Operator Name Role Phone Tiny Walters APRN Primary Care Provider +1- [phone] Encounter Details Date Type Department Care Team (Late st Contact Info) Description 03/20/2020 Telephone Hematology [place] [phone] Miguel Perez DO Social History Tobacco Use Types Packs/Day Years [...] encounter Miscellaneous Notes * Telephone Encounter - Miguel Perez DO - 03/20/2020 10:11 PM EST Received a call from the patient's this evening reporting that he developed a fever 102 this evening w/ associated chills and shakes; she has repeated his temp on multiple occasions over the last hour using temporal scanner; results consistent. Took 500mg tylenol about 30min prior to our discussion and temp still elevated at 101.7. Patient now resting comfortably. does note that patient has had a cough x 1-2 days w/ increased phlegm production; Unclear if this is treatment related or infectious source - at risk for both; particularly aspiration PNA in this setting. Also viral considerations including COVID however, no known exposure but frequent visits to hospital. No other focal infectious symptoms. Labs today are reassuring as WBC/neutrophils were normal; WBC 5.69 w/ 71.6% PMNs. He was evaluated by Dr. Christy this AM however, given symptoms, new-onset fever and increased risk for infection - recommended ED evaluation this evening; otherwise could monitor overnight and discusswith primary team in the AM but will need eval. Not emergent given that has normal WBC however, he is at increased risk and it may be advantageous to expedite work-up as to avoid delays/interuptions in cancer-directed therapy. They will consider my recommendation. Cc: Dr. Christy and Dr. Butch Perez Hematology/Oncology Fellow PGY5 Pager: [phone] documented in this encounter Plan of Treatment Upcoming Encounters Date Type Department Care Team (Late st Contact Info) Description 05/31/2024 11:30 AM EST Office Visit Hematology/Oncolog y at [address] [phone] Tej Tipton MD [address] [facility] [address] HEMATOLOGY & [place] [address] Stacy Valle APRN [facility] [place] [address] 06/01/2024 10:30 AM EST Scheduled View [place] [phone] 06/01/2024 11:00 AM EST Office Visit [place] [phone] Luis E Chin MD [facility] [place] [address] 06/04/2024 8:30 AM EST Hospital Encounter [place] [phone] Rayshawn Suresh MD [facility] [place] [address] 06/04/2024 8:30 AM EST - 06/04/2024 1:05 PM EST Surgery [place] [address] Rayshawn Suresh MD [facility] [place] [address] @THORACOSCOPY, SURG; W PLEURODESIS (WRVU 10.83) Scheduled [...] on filedocumented in this encounter Care Teams Oil Pipeline Operator Relationship Specialty Start Date End Date Tiny Walters APRN [address] [place] [phone] PCP - General Family Medicine 12/01/19 04/07/24 documented as of this encounter
--- OUTSIDE RECORDS SUMMARY | 2024-05-31 01:26 | XMS_ITS | Encounter Summary ---
Author Organization Formerly [facility] [place] [address] Care Team Providers Care Health Unit Supervisor Name Role Phone Tiny Walters APRN Primary Care Provider +1- [phone] Encounter Details Date Type Department Care Team (Late Contact Info) Description 03/21/2020 Ancillary Procedure Radiology Library at [facility] [place] [phone] Tiny Walters APRN [address] [place] [phone] Social History Tobacco Use Types Packs/Day [...] EST Office Visit Hematology/Oncolog y at [address] [phone] Tej Tipton MD [address] [facility] HEMATOLOGY & [place] [address] Stacy Valle APRN [facility] [place] [address] 06/01/2024 10:30 AM EST Scheduled View [place] [address] 06/01/2024 11:00 AM EST Office Visit [place] [phone] Luis E Chin MD [facility] [place] [address] 06/04/2024 8:30 AM EST Hospital Encounter [place] [phone] Rayshawn Suresh MD [facility] [place] [address] 06/04/2024 8:30 AM EST - 06/04/2024 1:05 PM EST Surgery [place] [phone] Rayshawn Suresh MD [facility] [place] [address] @THORACOSCOPY, SURG; W PLEURODESIS (WRVU 10.83) Scheduled [...] FILM LIBRARY STORAGE ONLY DX CHEST Routine 03/21/2020 12:00 AM EST documented in this encounter Results * Film Library- Storage Only DX Chest (03/21/2020 12:00 AM EST) Narrative [facility] - 03/27/2020 11:51 AM EST This exam is auto-finalizing. It's purpose is for storage only. Tiny Walters APRN IMG FILM LIBRARY O RDERABLES [place], [place] documented in this encounter Visit Diagnoses Not on filedocumented in this encounter Care Teams Health Unit Supervisor Relationship Specialty Start Date End Date Tiny Walters APRN [address] [place] [phone] PCP - General Family Medicine 12/01/19 04/07/24 documented as of this encounter
--- OUTSIDE RECORDS SUMMARY | 2024-05-31 01:26 | XMS_ITS | Encounter Summary ---
Author Organization Counts Include [facility] Address [facility] [place] [address] Care Team Providers Care Yeast Washer Name Role Phone Tiny Walters APRN Primary Care Provider +1- [phone] Reason for Visit * Consultation (Routine) - Closed Specialty Diagnoses / Procedures Referred By Fritz lanier Referred To Contact Radiation Oncology Diagnoses Tonsil cancer Procedures Re-simulation for Radiation Therapy Planning Jose Martin Rae MD [facility] [place] [address] [facility] Rad Onc Office [address] [place] [phone] Referral ID Status Reason Start Date Expiration Date V isits Requested Visits Authorized [id number] Closed Consult, Test & Treat 03/23/2020 03/23/2021 1 1 Encounter Details Date Type Department Care Team (Latest Contact Info) Description 03/28/2020 8:30 AM EST Ancillary Appointment Radiation Oncology at [address] [phone] Jose Martin Rae MD [facility] [place] [address] Tonsil cancer Social History Tobacco Use Types [...] Sign Reading Time Taken Comments Blood Pressure 122/70 03/28/2020 8:33 AM EST Pulse 85 03/28/2020 8:33 AM EST Temperature 37.2 ??C (99 ??F) 03/28/2020 8:3 3 AM EST Respiratory Rate 18 03/28/2020 8:33 AM EST Oxygen Saturation 99% 03/28/2020 8:3 3 AM EST Inhaled Oxygen Concentration - - Weight 77.2 kg (170 lb 3.2 oz) 03/28/20 20 8:33 AM EST with shoes Height - - Body Mass Index 26.65 03/27/2020 10:21 AM EST documented in this encounter Progress Notes * Janeen Duarte RN - 03/28/2020 8:30 AM EST Section of Radiation Oncology Contrast Information Safety Questions 1. Has the patient ever had an x-ray study before which involved injection of a contrast agent or x-ray dye? yes If yes, did the patient have any reaction to the injection? no If yes, please describe the reaction: n/a 2. Is the patient allergic to any foods, medicines, or other substances? no No Known Allergies 3. Has the patient received any contrast within the past 24 hours? no 4. Does the patient have any procedures scheduled in the next 24 hours? no 5. Does the patient have a history of renal/kidney problems or kidney surgery? no 6. Does the patient have diabetes? no 7. Does the patient have high blood pressure? no 8. Is the patient currently being treated for gout? no 9. If the answer to any of the questions #5-8 was yes, has the patient had a creatinine level and eGFR drawn within the past 45 days? yes If no, when will it be drawn? n/a A creatinine less than or equal to 1.6 and a eGFR of 45 or greater OK to proceed with IV contrast. If the creatinine is greater than 1.6 and the eGFR is less than 45, consult with the ordering provider. If an eGFR is less than 30, IV contrast should not be administered and another contrast agent may be ordered by the provider (Visipaque). 10. Is the patient currently taking any of the following medications? (Actoplus Met, Avandamet, Glucovance, Janumet, Jendadueto, Kombiglyze, Metaglip, PrandiMet, Glugophage, Glumetza, Riomet, Metformin) [x} No If yes, when was last dose taken? n/a 9. If patient is on any of the medications in question #10, consult with the ordering provider if the patient needs to stop the medication and if they will require further lab studies. * Janeen Duarte RN - 03/28/2020 8:[address] Contrast Simulation Nursing Note: Zen Sousabensonconstance [id number] 07/23/1985 IV ACCESS: powerport GAUGE: please see infusion schedule for details. BLOOD RETURN: yes CT simulation of: Head and neck MD present for contrast injection: Dr. Jose Martin Rae Contrast material: Omnipaque 300mgI/ml Volume of Contrast Injected: 100 ml's Volume of Contrast wasted: 0 ml's Procedure done in Radiation Oncology CT Simulator Room __: No Reaction Any S/Sx of Infiltration/Extravasation: no IV discontinued: discontinued by infusion staff. Please see infusion encounter. 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 An intravenous line was placed in anticipation of contrast administration. The patient was then brought to the simulation room and a time-out was performed per protocol. he was then placed on the simulation table. The prior custom cushion was used for his neck. A bite block was placed under physician supervision. A custom aquaplast mask was then created. The simulation CT scan was performed with contrast, images were reviewed and approved by the physician. The patient tolerated the procedure without difficulty, and was given a time to return to start radiotherapy. documented in this encounter Plan of Treatment Upcoming Encounters Date Type Department Care Team (Angie Contact Info) Description 05/31/2024 11:30 AM EST Office Visit Hematology/Oncolog y at [address] [phone] Tej Tipton MD [address] [facility] HEMATOLOGY & [place] [address] Stacy Valle APRN [facility] [place] [address] 06/01/2024 10:30 AM EST Scheduled View Only [place] [phone] 06/01/2024 11:00 AM EST Office Visit [place] [phone] Luis E Chin MD [facility] [place] [address] 06/04/2024 8:30 AM EST Hospital Encounter [place] [phone] Rayshawn Suresh MD [facility] [place] [address] 06/04/2024 8:30 AM EST - 06/04/2024 1:05 PM EST Surgery [place] [address] Rayshawn Suresh MD [facility] [place] [address] @THORACOSCOPY, SURG; W PLEURODESIS (WRVU 10.83) Scheduled Orders Name Type Priority Associated Diagnoses Orde r Schedule Re-simulation for Radiation Therapy Planning Procedures Routine Tonsil cancer Ordered: 03/23/2020 Scheduled Procedures Name Priority Associated Diagnoses Date/Ti [...] tonsil documented in this encounter Care Teams Yeast Washer Relationship Specialty Start Date End Date Tiny Walters, ACTIVITY DIRECTOR [address] [place] [phone] PCP - General Family Medicine 12/01/19 04/07/24 documented as of this encounter
--- OUTSIDE RECORDS SUMMARY | 2024-05-31 01:26 | XMS_ITS | Encounter Summary ---
Author Organization [facility] Address [facility] [place] [address] Care Team Providers Care Cone Machine Operator Name Role Phone Tiny Walters APRN Primary Care Provider +1- [phone] Reason for Visit * Reason Comments Chemotherapy Cycle 1, Day 22 - Ci splatin * Treatment/Therapy Plan Authorization (Routine) - Closed Specialty Diagnoses / Procedures Referred By Contac t Referred To Contact Diagnoses Tonsil cancer Dehydration Drug-induced nausea and vomiting Procedures TC PALONOSETRON HCL, 25MCG, INJECTION (ALOXI) TC APREPITANT, 1 MG, INJECTION TC CISPLATIN, POWDER OR SOLUTION, 10MG, INJECTION Gume Christy MD [address] [place] [address] [place] [address] [facility] Hem Onc Infusion [address] [place] [phone] Referral ID Status Reason Start Date Expiration Date Visits Re quested Visits Authorized [id number] Closed 01/24/2020 04/17/2021 30 0 Encounter Details Date Type Department Care Team (Late st Contact Info) Description 03/20/2020 12:00 PM EST Infusion Hematology Oncology at [address] [phone] Tonsil cancer Social History Tobacco [...] as of this encounter Progress Notes * Sudeep, Diana C, RN - 03/20/2020 12:00 PM EST INFUSION THERAPY ADMINISTRATION NOTES DIAGNOSIS: Tonsillar cancer CYCLE #: Cycle 1, Day 22 - Cisplatin REASON FOR VISIT: To receive chemotherapy concurrent with radiation. SUBJECTIVE: Zen offers no complaints. OBJECTIVE: VSS. Seen by provider. Ready to treat. LAB DATA: WBC - 5.69, H/H - 12.6/35.7, Plt Ct - 275, ANC - 4.08, Lytes wnl, BUN/CR - 20/1.14, MG++ - 1.9 IV ACCESS: Port accessed off site, flushes readily with brisk blood return. Pre administration: Chemotherapy orders independently verified for drug name, route, and dosage per patient's height, weight and BSA by Shirley Sheets RN and Hao De [facility]. REACTIONS (DESCRIPTION, TIME, INTERVENTION AND EFFECTIVENESS) [...] EST Office Visit Hematology/Oncolog y at [address] [phone] Tej Tipton MD [address] [facility] [address] HEMATOLOGY & [place] [address] Stacy Valle APRN [facility] [place] [address] 06/01/2024 10:30 AM EST Scheduled View [place] [address] 06/01/2024 11:00 AM EST Office Visit [place] [phone] Luis E Chin MD [facility] [place] [address] 06/04/2024 8:30 AM EST Hospital Encounter [place] [phone] Rayshawn Suresh MD [facility] [place] [address] 06/04/2024 8:30 AM EST - 06/04/2024 1:05 PM EST Surgery [place] [phone] Rayshawn Suresh MD [facility] [place] [address] @THORACOSCOPY, SURG; W PLEURODESIS (WRVU 10.83) Scheduled [...] over 2 Minutes, ONCE, 1 dose, On Fri03/20/20 at 1200, Alternative administration of IV push over 2 minutes is a recommendation from the terra cotta mason. Administer prior to chemotherapy., Routine Given 03/20/2020 12:08 PM EST 130 mg CISplatin (Platinol) 79 mg in sodium chloride 0.9% 329 mL chemo infusion 79 mg (rounded from 79.2 mg = 40 mg/m2/dose ? 1.98 m2 Treatment Plan BSA from Recorded weight), Intravenous, ONCE, 1 dose, On Fri03/20/20 at 1300, Administer over 60 Minutes, Warning Vesicant/Irritant Medication New Bag 03/20/2020 12:55 PM EST 79 mg 329 mL/hr dexamethasone (Decadron) tablet 10 mg 10 mg, Oral, ONCE, 1 dose, On Fri03/20/20 at 1200, Administer prior to chemotherapy, Routine Given 03/20/2020 12:08 PM EST 10 mg heparin, porcine 100 unit/mL flush 500 Units 500 Units, Intravenous, ONCE PRN, Starting on Fri03/20/20 at 1142, Until Fri03/20/20 at 1754, Line Care, Refer to Intravenous (IV) Procedure: Accessing Implanted Vascular Access Devices (654) procedure and/or Intravenous (IV) Job Aid: Adult Flushing & Catheter Care (1631) job aid for additional information regarding guidelines and administration., Routine Given 03/20/2020 1:59 PM EST 500 Units palonosetron (ALOXI) injection 0.25 mg 0.25 mg, Intravenous, ONCE, 1 dose, On Fri03/20/20 at 1200, Administer over 30 seconds. Administer prior to chemotherapy, Routine Given 03/20/2020 12:08 PM EST 0.25 mg sodium chloride 0.9 % (flush) flush 5-20 mL 5-20 mL, Intravenous, EVERY 1 MIN PRN, Starting on Fri03/20/20 at 1142, Until Fri03/20/20 at 1754, Line Care, Flush pertains to all indwelling lines. Flush per protocol found in the job aid using the link provided on this medication record. Refer to Intravenous (IV) Job Aid: Adult Flushing & Catheter Care (4172) job aid for additional information regarding guidelines and administration., Routine Given 03/20/2020 1:59 PM EST 20 mLs sodium chloride 0.9% infusion 1,000 mL, at 1,000 mL/hr, Intravenous, CONTINUOUS, Starting on Fri03/20/20 at 1200, Until Fri03/20/20 at 1259, Pre-CISplatin New Bag 03/20/2020 11:50 AM EST 1,000 mLs 1000 mL/hr sodium chloride 0.9% infusion 500 mL, at 500 mL/hr, Intravenous, CONTINUOUS, Starting on Fri03/20/20 at 1400, Until Fri03/20/20 at 1459, Post CISplatin New Bag 03/20/2020 12:56 PM EST 500 mLs 500 mL/hr documented in this encounter Care Teams Cone Machine Operator Relationship Specialty Start Date End Date Tiny Walters APRN [address] [place] [address] PCP - General Family Medicine 12/01/19 04/07/24 documented as of this encounter
--- OUTSIDE RECORDS SUMMARY | 2024-05-31 01:26 | XMS_ITS | Encounter Summary ---
Author Organization [facility] Address [facility] [place] [address] Care Team Providers Care Laborer/Key Man Name Role Phone Tiny Walters APRN Primary Care Provider +1- [phone] Encounter Details Date Type Department Care Team (Late st Contact Info) Description 03/20/2020 11:00 AM EST Office Visit Hematology/Oncology at [address] [phone] Gume Christy MD [address] [place] [address] [place] [address] Tonsil cancer Social History Tobacco Use Types [...] Sign Reading Time Taken Comments Blood Pressure 125/75 03/20/2020 11:12 AM EST Pulse 75 03/20/2020 11:12 AM EST Temperature 37.1 ??C (98.7 ??F) 03/20/2020 11:[address] Respiratory Rate 16 03/20/2020 11:12 AM EST Oxygen Saturation 99% 03/20/2020 11:12 AM EST Inhaled Oxygen Concentration - - Weight 75.5 kg (166 lb 6.4 oz) 03/20/2020 11:12 AM EST Height 170.2 cm (5' 7.01) 03/20/2020 11:[address] Body Mass Index 26.06 03/20/2020 11:12 AM EST documented in this encounter Progress Notes * Gume Christy MD - 03/20/2020 11:00 AM EST Hematology/Oncology Clinic [facility] Patient Active Problem List Diagnosis ??? 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 Odynophagia, progressing to R otalgia, headache, trismus Summer 2019; large R tonsil non-ker SCCa extending to intrinsic tongue, pterygoids, FOM; nonpalable bilateral adenopathy B. Definitive chemoradiation (weekly cisplatin) instituted 02/29/2020 ??? Gastrostomy tube in place Balloon-retained (5 mL inflation), 16 Fr, placed by [facility] 02/11/2020 ??? Raynaud's syndrome ONCBCN ONCOLOGY (AMB) 02/29/2020 03/06/2020 Day, Cycle Day 1, Cycle 1 Day 8, Cycle 1 CISplatin (Platinol) IV 40 mg/m2/dose = 79 mg 40 mg/m2/dose = 79 mg ONCBCN ONCOLOGY (AMB) 03/13/2020 Day, Cycle Day 15, Cycle 1 CISplatin (Platinol) IV 40 mg/m2/dose = 79 mg Med Onc checkup in advance of week #4 chemo; RT fraction #15 today = 30 Gy. No major problems with last week's chemotherapy. He has not developed any peripheral neuropathy; intermittent mild tinnitus continues but has not been progressive. No problems with nausea. Taste sensation remains totally absent, but this is not as bothersome as he has decreased his oral intake and increased his tube feeding intake. He is now on 4 containers perday, with plans to gradually move up. At first his stomach would not tolerate the tube feeding in less than an hour, but now he can get in a container in 15 minutes without gastric distress. Bowels are moving reasonably well with regular medication. He is beginning to have some throat irritation. However, the tumor related headache that has plagued him for months has resolved. He has not been needing any pain medication for this. We stopped the ibuprofen last week because of renal dysfunction. His throat is now producing copious amounts of phlegm. Energy level is down slightly, KPS 90. He has been using moisturizing cream on the skin with no problems from radiation dermatitis. He is rinsing his mouth with the recommended baking soda/table salt solution. Physical exam: He looks well, in good spirits Voice is clear Oral exam shows good hydration. There is less tumor fullness in the right tonsil, with some patchy mucositis over the tonsillar mucosa. As before the tongue deviates moderately to the right. There isno trismus. Neck exam is without palpable adenopathy. Skin in the radiation field looks clear. The chest is clear to auscultation and percussion Cardiac exam is normal Right chest Mediport is benign Abdomen is benign, no hepatosplenomegaly or masses. G-tube site is clean Extremities are without clubbing cyanosis or edema Neurologic exam shows normal motor and sensory function. Reflexes 2+. Labs: Today's electrolytes are normal. BUN is down to 20, creatinine down to 1.14. Nonfasting glucose 123. Hepatic enzymes normal. Albumin 3.5. White count is 5.69, hemoglobin 12.6, platelets 275. Impression: Clinical T4N1 p16 positive right tonsil cancer in a never-smoker, responding to therapy. Chemoradiation has been tolerable with nothing beyond expected toxicities. He is losing some weight but is successfully launched on tube feedings which hopefully can stem the weight loss as the quantity of tube feeding escalates. Chemotherapy related renal dysfunction, no longer progressing with the benefit of removing ibuprofen and copious hydration. Plan: 1. Proceed with today's chemotherapy as planned. No change in supportive care. 2. Reinforced the need for copious hydration, especially with the increased expectoration of large quantities of phlegm. 3. Uptitrate tube feedings; he will be meeting with our dietitian later today. Gume Christy MD, FACP senior informatica developer Hematology/Oncology Section [facility] [address] Voice recognition software used for this note; please excuse enterprise systems architect errors. I personally reviewed past medical, surgical, family medical histories, reviewed current medications, vital signs, labs, and performed full review of systems. These are documented below the narrativefor clarity and succinctness. Outpatient Medications Marked as Taking for the 03/20/20 encounter (Office Visit) with Gume Christy MD Medication Sig Dispense Refill ??? polyethylene glycoL (Miralax) 17 gram/dose Powder [...] Review of systems is negative for other TICKET PULLER, bone, pulmonary, cardiac, GI, , extremity, neurologic, endocrine, skin, constitutional, emotional, or functional problems. Vitals Office Visit from 03/20/2020 in Hematology/Oncology at [facility] Weight 75.5 kg (166 lb 6.4 oz) Height 170.2 cm (5' 7.01) BSA (Calculated - sq m) 1.89 sq meters BMI (Calculated) 26.05 Temp 37.1 ??C (98.7 ??F) Temp src Temporal Heart Rate 75 Heart Rate Source Right, NIBP Resp 16 BP 125/75 BP Location Right arm Patient Position Sitting SpO2 99 % Karnofsky Score 90 Body surface area is 1.89 meters squared. Wt Readings from Last 3 Encounters: 03/20/20 75.5 kg (166 lb 6.4 oz) 03/16/20 77.4 kg (170 lb 9.6 oz) 03/15/20 78 kg (172 lb) No results found for this or any previous visit (from the past 72 hour(s)). ++++++++++++++++++++++++++++++++++++++++++++++++++++ documented in this encounter Plan of Treatment Upcoming Encounters Date Type Department Care Team (Late st Contact Info) Description 05/31/2024 11:30 AM EST Office Visit Hematology/Oncolog y at [address] [phone] Tej Tipton MD [address] [facility] HEMATOLOGY & [place] [address] Stacy Valle APRN [facility] [place] [address] 06/01/2024 10:30 AM EST Scheduled View Only Radiation Oncology at [address] 06/01/2024 11:00 AM EST Office Visit Radiation Oncology at [place] [phone] Luis E Chin MD [facility] [place] [address] 06/04/2024 8:30 AM EST Hospital Encounter Main Operating Room [place] [phone] Rayshawn Suresh MD [facility] [place] [address] 06/04/2024 8:30 AM EST - 06/04/2024 1:05 PM EST Surgery Main Operating Room [place] [phone] Rayshawn Suresh MD [facility] [place] [address] @THORACOSCOPY, SURG; W PLEURODESIS (WRVU 10.83) Scheduled [...] tonsil documented in this encounter Care Teams Laborer/Key Man Relationship Specialty Start Date End Date Tiny Walters APRN [address] [place] [phone] PCP - General Family Medicine 12/01/19 04/07/24 documented as of this encounter
--- OUTSIDE RECORDS SUMMARY | 2024-05-31 01:26 | XMS_ITS | Encounter Summary ---
Author Organization [facility] Address [facility] [place] [address] Care Team Providers Care Industrial Illuminating Engineer Name Role Phone Tiny Walters APRN Primary Care Provider +1- [phone] Encounter Details Date Type Department Care Team (Late st Contact Info) Description 03/13/2020 11:30 AM EST Office Visit Hematology/Oncology at [address] [phone] Tonsil cancer [...] Progress Notes * Tonya Machado RD - 03/13/2020 11:30 AM EST [facility] Dietitian Follow Up Seen By: Tonya [...] in place Z93.1 Meds: reviewed Labs: reviewed Estimated body mass index is 26.78 kg/m?? as calculated from the following: Height as of an earlier encounter on 03/13/20: 170.2 cm (5' 7.01). Weight as of an earlier encounter on 03/13/20: 77.6 kg (171 lb). Wt Readings from Last 3 Encounters: 03/13/20 77.6 kg (171 lb) 03/09/20 79.2 kg (174 lb 9.6 oz) 03/06/20 80.6 kg (177 lb 12.8 oz) Previous weights: 02/16/20: 180 lbs 02/11/20: 179 lbs Weight decreased this week. Wt Hx: UBW: % UBW: IBW: +/- 10% % IBW: ___ Edema ___ Ascites ___Muscle wasting Calories: 1882-0324 (30-35 kcal/kg) Protein: 120 grams (1.5 g/kg) Fluid: 2.5 L Nutrition Assessment: Enteral Nutrition: G-tube placed 02/10 by IR - 16 Tajik balloon retained g-tube If unable to eat orally, recommend 7 cans of Nutren 1.5 via G-tube/day to provide 2625 kcal, 119 gmof protein and 1337 mLs of free water. Began using feeding tube over the weekend, bolus syringe method. Food Intake: Decreased oral intake this past week d/t altered taste, aversion to certain textures. Over the weekend, only ate yogurt and Boost supplements. estimated kcal intake was only around 1000 calories one day this weekend. Teas, vitamins, or other nutritional supplements: n/a Food allergies or avoidances: denies Appetite: good Nausea: occasional - per Dr. Christy, patient instructed to take Compazine 30 min before meals to seeif this helps Vomiting: n/a Chewing: denies difficulty Dentition: wisdom teeth removed recently Swallowing: denies difficulty Taste Changes: +bland Bowels: did not discuss Food availability/purchasing, meal planning and preparation: Social Support: accompanied by his ; 3 children at home Physical Activity: Anticipated adherence/understanding: good Nutrition Diagnosis: New g-tube placement in anticipation of starting treatment for recently diagnosed HN cancer. Nutrition Intervention: ? Increase caloric needs: Provided smoothie recipes, 100 kcal additions ? Recommended Plus variety of Boost supplements for extra kcals ? Modify diet consistency: as tolaterated ? Enteral Nutrition: referral complete, patient is waiting to hear back regarding insurance coverage; accepting of donated formula in the meantime - provided 2 cases Nutren 1.5 (unopened, unexpired) and gravity bags ? Recommended use of gravity bags this week Monitoring and Evaluation: Will follow up weekly during treatment. documented in this encounter Plan of Treatment Upcoming Encounters Date Type Department Care Team (Late st Contact Info) Description 05/31/2024 11:30 AM EST Office Visit Hematology/Oncolog y at [address] [phone] Tej Tipton MD [address] [facility] [address] HEMATOLOGY & [place] [address] Stacy Valle APRN [facility] [place] [address] 06/01/2024 10:30 AM EST Scheduled View [place] [address] 06/01/2024 11:00 AM EST Office Visit [place] [phone] Luis E Chin MD [facility] [place] [address] 06/04/2024 8:30 AM EST Hospital Encounter [place] [address] Rayshawn Suresh MD [facility] [place] [address] 06/04/2024 8:30 AM EST - 06/04/2024 1:05 PM EST Surgery [place] [phone] Rayshawn Suresh MD [facility] [place] [address] @THORACOSCOPY, SURG; W PLEURODESIS (WRVU 10.83) Scheduled [...] tonsil documented in this encounter Care Teams Industrial Illuminating Engineer Relationship Specialty Start Date End Date Tiny Walters, BATSHEVA [address] [place] [phone] PCP - General Family Medicine 12/01/19 04/07/24 documented as of this encounter
--- OUTSIDE RECORDS SUMMARY | 2024-05-31 01:26 | XMS_ITS | Encounter Summary ---
Author Organization [facility] [place] [address] Care Team Providers Care Senior Online Marketing Manager Name Role Phone Tiny Walters APRN Primary Care Provider +1- [phone] Reason for Referral * Speech Therapy (Routine) - Specialty Diagnoses / Procedures Referred By Fritz lanier Referred To Contact Physical Therapy Diagnoses Tonsil cancer Aspiration pneumonia of right lower lobe, unspecified aspiration pneumonia type Gume Christy MD [facility] [place] [address] Referral ID Status Reason Start Date Expiration Date V isits Requested Visits Authorized [id number] Evaluate and Treat 03/21/2020 2020 12 12 Encounter Details Date Type Department Care Team (Late st Contact Info) Description 03/21/2020 Orders Only [place] [address] Gume Christy MD [address] [place] [address] [place] [address] Tonsil cancer; Aspiration pneumonia of right lower [...] Progress Notes * Gume Christy MD - 03/21/2020 10:12 AM EST [facility] HEAD AND NECK CANCER PROGRAM Medical Oncology - [facility] Events of past 24 hours noted. Now on appropriate antibiotics for RLL pneumonia, likely d/t silent aspiration. Not neutropenic. No immediate change in therapy plan. Discussed safe swallowing techniques. I will refer him back toSpeech/Swallowing Therapy for followup, which may include modified barium swallow and refresher on swallowing excercises. Gume Christy MD, FACP Hematology/Oncology Section, [facility] automotive lube technician, [facility] at [facility] [phone] documented in this encounter Plan of Treatment Upcoming Encounters Date Type Department Care Team (Late st Contact Info) Description 05/31/2024 11:30 AM EST Office Visit Hematology/Oncolog y at [address] [phone] Tej Tipton MD [address] [facility] [address] HEMATOLOGY & [place] [address] Stacy Valle APRN [facility] [place] [place] [address] 06/01/2024 10:30 AM EST Scheduled View [place] [address] 06/01/2024 11:00 AM EST Office [place] [address] Luis E Chin MD [facility] [place] [address] 06/04/2024 8:30 AM EST Hospital Encounter [place] [address] Rayshawn Suresh MD [facility] [place] [address] 06/04/2024 8:30 AM EST - 06/04/2024 1:05 PM EST Surgery Main Operating Room [facility] [place] [address] Rayshawn Suresh MD [facility] [place] [address] @THORACOSCOPY, SURG; W PLEURODESIS (WRVU 10.83) Scheduled [...] Associated Diagnoses Orde r Schedule Referral to Speech Therapy Outpatient Referral Routine Tonsil cancer Aspiration pneumonia of right lower lobe, unspecified aspiration pneumonia type Ordered: 03/21/2020 documented as of this encounter Visit Diagnoses Diagnosis Tonsil cancer Malignant neoplasm of tonsil Aspiration pneumonia of right lower lobe, unspecified aspiration pneumonia type documented in this encounter Care Teams Senior Online Marketing Manager Relationship Specialty Start Date End Date Tiny Walters APRN [address] [place] [phone] PCP - General Family Medicine 12/01/19 04/07/24 documented as of this encounter
--- OUTSIDE RECORDS SUMMARY | 2024-05-31 01:26 | XMS_ITS | Encounter Summary ---
Author Organization [facility] Address [facility] [place] [address] Care Team Providers Care Shrinking Machine Operator Name Role Phone Tiny Walters APRN Primary Care Provider +1- [phone] Encounter Details Date Type Department Care Team (Late st Contact Info) Description 03/20/2020 1:30 PM EST Office Visit Hematology/Oncology at [address] [phone] Tonsil cancer [...] Progress Notes * Tonya Machado RD - 03/20/2020 1:30 PM EST [facility] Dietitian Follow Up Seen By: Tonya [...] Labs: reviewed Estimated body mass index is 26.06 kg/m?? as calculated from the following: Height as of an earlier encounter on 03/20/20: 170.2 cm (5' 7.01). Weight as of an earlier encounter on 03/20/20: 75.5 kg (166 lb 6.4 oz). Wt Readings from Last 3 Encounters: 03/20/20 75.5 kg (166 lb 6.4 oz) 03/16/20 77.4 kg (170 lb 9.6 oz) 03/15/20 78 kg (172 lb) Previous weights: 02/16/20: 180 lbs 02/11/20: 179 lbs Further weight loss this week. Wt Hx: UBW: % UBW: IBW: +/- 10% % IBW: ___ Edema ___ Ascites ___Muscle wasting Calories: 2120-8346 (30-35 kcal/kg) Protein: 120 grams (1.5 g/kg) Fluid: 2.5 L Nutrition Assessment: Enteral Nutrition: G-tube placed 02/10 by IR - 16 Fijian balloon retained g-tube If unable to eat orally, recommend 7 cans of Nutren 1.5 via G-tube/day to provide 2625 kcal, 119 gmof protein and 1337 mLs of free water. He did check balloon fill this past week, 4-5 cc water. Slowly increased up to 4 cartons of formula per day over the weekend. He struggled with indigestionat first, which has since improved. Using gravity bags. Food Intake: tries to eat something daily, usually just sticks to yogurt Teas, vitamins, or other nutritional supplements: n/a Food allergies or avoidances: denies Appetite: good Nausea: occasional - mild Vomiting: n/a Chewing: denies difficulty Dentition: wisdom teeth removed recently Swallowing: denies difficulty, slight sore throat; increased phlegm Taste Changes: +bland Bowels: did not discuss [...] per day; providing donated formula to patient (unopened, unexpired); gravity method Monitoring and Evaluation: Will follow up weekly during treatment. documented in this encounter Plan of Treatment Upcoming Encounters Date Type Department Care Team (Late st Contact Info) Description 05/31/2024 11:30 AM EST Office Visit Hematology/Oncolog y at [address] [phone] Tej Tipton MD [address] [facility] HEMATOLOGY & [place] [address] Stacy Valle APRN [facility] [place] [address] 06/01/2024 10:30 AM EST Scheduled View Only [place] [phone] 06/01/2024 11:00 AM EST Office Visit [place] [phone] Luis E Chin MD [facility] [place] [address] 06/04/2024 8:30 AM EST Hospital Encounter [place] [phone] Rayshawn Suresh MD [facility] [place] [address] 06/04/2024 8:30 AM EST - 06/04/2024 1:05 PM EST Surgery [place] [phone] Rayshawn Suresh MD [facility] [place] [address] @THORACOSCOPY, SURG; W PLEURODESIS (WRVU 10.83) Scheduled [...] tonsil documented in this encounter Care Teams Shrinking Machine Operator Relationship Specialty Start Date End Date Tiny Walters, HAND REAMER [address] [place] [phone] PCP - General Family Medicine 12/01/19 04/07/24 documented as of this encounter
--- OUTSIDE RECORDS SUMMARY | 2024-05-31 01:26 | XMS_ITS | Encounter Summary ---
Author Organization [facility] Address [facility] [place] [address] Care Team Providers Care Food And Beverage Director Name Role Phone Tiny Walters APRN Primary Care Provider +1- [phone] Encounter Details Date Type Department Care Team (Late st Contact Info) Description 03/15/2020 3:00 PM EST Office Visit Radiation Oncology at [address] [phone] Jose Martin Rae MD [facility] [place] [address] Tonsil cancer Social History Tobacco Use Types [...] Sign Reading Time Taken Comments Blood Pressure 123/69 03/15/2020 10:56 AM EST Pulse 74 03/15/2020 10:56 AM EST Temperature 36.7 ??C (98.1 ??F) 03/15/2020 10:[address] Respiratory Rate 18 03/15/2020 10:56 AM EST Oxygen Saturation 97% 03/15/2020 10:56 AM EST Inhaled Oxygen Concentration - - Weight 78 kg (172 lb) 03/15/2020 10:56 AM EST Height 170.2 cm (5' 7) 03/15/2020 10:56 AM EST Body Mass Index 26.94 03/15/2020 10:56 AM EST documented in this encounter Progress Notes * Jose Martin Rae MD - 03/15/2020 3:00 PM EST ON TREATMENT VISIT NOTE Zen Pickering is a 39 y.o. 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 Definitive chemoradiotherapy. Current treatment dose: 24 Gy in 12 fractions. Anticipated total dose: 70 Gy in 35 fractions. Concomitant Therapy: Y ONC BCA CHEMO (AMB) 02/29/2020 03/06/2020 03/13/2020 Day, Cycle Day 1, Cycle 1 Day 8, Cycle 1 Day 15, Cycle 1 CISplatin (Platinol) IV 40 mg/m2/dose 40 mg/m2/dose 40 mg/m2/dose Evaluation of Port Verification Films: PORT films have been reviewed, please see ARIA for details. Changes in medical condition Pain: otalgia has decreased, sensation of sore throat. Only requiring OTC medications. Secretions/Dryness: severe dysgeusia; significant xerostomia / thick secretions. Nutrition: eating soft solids, liquids. Limited by nausea / gagging. G tube: started using feeding tube over the weekend Swallowing Function: no coughing /choking Skin: no issues GI: -N/V: mild nausea; using compazine -Bowels: colace and Miralax, no issues Nutrition Assessment: Weight : 80.1 kg initial Change: 80.1 kg => 78 kg Objective: Vitals: 03/15/20 1056 BP: 123/69 Patient Position: Sitting Pulse: 74 Resp: 18 Temp: 36.7 ??C (98.1 ??F) TempSrc: Temporal SpO2: 97% Weight: 78 kg (172 lb) Height: 170.2 cm (5' 7) SKIN: mild skin erythema MUCOSA: mild mucositis Assessment: Increasing toxicity with dysgeusia, xerostomia, and some weight loss CTCAE TOXICITY GRADES (see below for corrales): Site Grade Skin 1 Xerostomia 2 Pharyngeal Mucositis 1 Dysphagia 0 Hoarseness 0 TREATMENT RESPONSE: No change Plan: ?? Continue RT per prescription ?? Pain control: ?? OTC medications ?? ADD BMX ?? Skin: Jeans cream prn ?? Mucositis: ?? Pain control: see above ?? Oral hygiene consisting of baking soda/salt rinse at least 8 times daily ?? Alimentation: brim pouncer following ?? Weight decreased, starting use G tube, but also by mouth at [...] EST Office Visit Hematology/Oncolog y at [address] [phone] Tej Tipton MD [address] [facility] HEMATOLOGY & [place] [address] Stacy Valle APRN [facility] [place] [address] 06/01/2024 10:30 AM EST Scheduled View [place] [address] 06/01/2024 11:00 AM EST Office [place] [phone] Luis E Chin MD [facility] [place] [address] 06/04/2024 8:30 AM EST Hospital Encounter [place] [phone] Rayshawn Suresh MD [facility] [place] [address] 06/04/2024 8:30 AM EST - 06/04/2024 1:05 PM EST Surgery [place] [phone] Rayshawn Suresh MD [facility] [place] [address] @THORACOSCOPY, SURG; W PLEURODESIS (WRVU 10.83) Scheduled [...] tonsil documented in this encounter Care Teams Food And Beverage Director Relationship Specialty Start Date End Date Tiny Walters APRN [address] [place] [address] PCP - General Family Medicine 12/01/19 04/07/24 documented as of this encounter
--- OUTSIDE RECORDS SUMMARY | 2024-05-31 01:26 | XMS_ITS | Encounter Summary ---
Author Organization [facility] Address [facility] [place] [address] Care Team Providers Care Director Ambulatory Name Role Phone Tiny Walters APRN Primary Care Provider +1- [phone] Reason for Visit * Speech Therapy (Routine) - Specialty Diagnoses / Procedures Referred By Fritz lanier Referred To Contact Physical Therapy Diagnoses Tonsil cancer Aspiration pneumonia of right lower lobe, unspecified aspiration pneumonia type Gume Christy MD [facility] [place] [address] Referral ID Status Reason Start Date Expiration Date V isits Requested Visits Authorized [id number] Evaluate and Treat 03/21/2020 2020 12 12 Encounter Details Date Type Department Care Team (Latest Contact Info) Description 03/22/2020 8:30 AM EST Office Visit Hematology/Oncology at [address] [phone] Carrie Jacob SLP Dysphagia, oropharyngeal phase; Aspiration pneumonia of right lower lobe, unspecified [...] Progress Notes * Carrie Jacob SLP - 03/22/2020 8:30 AM ESTSummary: LAWN SERVICE MANAGER f/u for dysphagia, pna Speech Language Pathology Dysphagia Progress Note Patient Profile: Zen Pickering is a 39-year-old man with recent diagnosis of 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 Patient currently on appropriate antibiotics for new onset RLL pneumonia, with question of silent aspiration. HPI: Patient Active Problem List Diagnosis Code ??? 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 Raynaud's syndrome I73.00 ??? Gastrostomy tube in place Z93.1 Meds: reviewed Labs: reviewed RD visit 03/20/20: Estimated body mass index is 26.06 kg/m?? [...] Further weight loss this week. Subjective: Patient seen in office with spouse present via telephone today. Patient continues to attempt p.o. intake as outlined, however currently only tolerating yogurt/level 4 solids, level 0 thinliquids - patient associates changes in texture intake with oral sensory aversion vs increase in pharyngeal dysphagia; continues to lose weight. During review of aspiration precautions, spouse reports patient did have coughing episode with drinking water earlier in week, which is new. [place] Swallow Protocol (Milvia et al, 2014) Results: Pass [Complete, uninterrupted drinking of entire 3 oz water without overt s/sx aspiration during or after administration] Patient was able to complete GTQ [[place]ons Trismus Questionnaire] prior to leaving [facility] today, with significant improvements from initial administration; 1 = no issue to 5 = severe issue: Items 1-23: Overall/General Issues 02/22: 115 03/22: - Improvement in overall symptoms Items 16-20: Facial Pain in Past Week 02/22: 01/20 03/22: 09/19 (No facial pain reported) Items 21-23: Mouth Opening Ability 02/22: 603/22: 07/10 (no issues) Objective: Pain: 0/10 (with ibuprofen) Respiratory Status: Room air Current Diet: Tolerating Level 4/Pureed solids, Level 0 Thin liquids Feeding / Oral Care Status: Pt is independent Using BSSR, biotene frequently, reports oral care routine is going well and able to describe in detail Oral / Laryngeal Mechanism Clinical Assessment: No changes noted from previous visit Trismus: REYNA: ?? Previous measure (02/22) at 31.75 mm Trismus Severity - Mild (30-34 mm) (Jesus et al, 2006) Assessment: Pt assessed in office today after recent development of pneumonia with question of silent aspiration; pt does not demonstrate overt s/sx aspiration per clinical assessment today, but willlikely benefit from VFSS/MBSS to identify potential physiologic deficit(s) and provide further instruction with biofeedback to ensure airway protection and efficiency of oropharyngeal swallowing withp.o. intake. Pt took part in further motivational interviewing for routine management with prophylactic swallowing exercise(s), oral care, and trismus monitoring. Patient demonstrated comprehension with all recommendations regarding his treatment plan to adhere to aspiration precautions and prophylactic swallowing exercises during his chemo/RT; given recent pna and question of potential silent aspiration, discussed appropriateness for VFSS/MBSS at either [facility] or [facility], whichever can be scheduled sooner, which patient and spouse are agreeable to. Patient continues to be appropriate candidate for LAWN SERVICE MANAGER intervention during chemo/RT and once chemo/RT has been completed given continued motivation and support from spouse. Education provided re: scheduling and procedure specifics for VFSS/MBSS including pre-test for COVID19 week prior to procedure; rationale for continuing prophylactic swallowing exercises and continued p.o. intake as tolerated despite sensory aversion to specific textures; pt expressed comprehension. Pt will benefit from continued therapeutic interventions to achieve therapy goals. Diagnosis: right tonsil squamous cell carcinoma, oropharyngeal dysphagia Recommendations: Diet: Continue Level 4 pureed and/or level 5 minced/moist solids, Level 0 thin liquids as tolerated PO medications: whole with sip of liquid and/or puree as appropriate if pharyngeal globus noted Risk Management: Upright position during meals and for at least 30 mins following Sensory enhancement (flavor, texture, temperature): *Small sips and bites while eating *Slow rate; swallow between bites VFSS/MBSS within next 1-2 weeks ([facility] or [facility], location [facility] depending on availability) Recommend subsequent session to be scheduled in 2 weeks; [...] Plan: Subsequent session in 2 weeks to review results of VFSS/MBSS if able to schedule prior to subsequent session; address continued trismus education as needed, intervention for direct treatment planning/implementation, review of additional strategies to aid in swallowing/speech abilities and support quality of life. LAWN SERVICE MANAGER to contact LAWN SERVICE MANAGER Dept at [facility] to identify timeline for VFSS/MBSS scheduling. Please feel free to contact me with any questions or concerns regarding Mr. Pickering's care. Carrie Jacob MA [facility]-LAWN SERVICE MANAGER Speech-Language Pathologist [email or web address] documented in this encounter Plan of Treatment Upcoming Encounters Date Type Department Care Team (Late st Contact Info) Description 05/31/2024 11:30 AM EST Office Visit Hematology/Oncolog y at [address] [phone] Tej Tipton MD [address] [facility] HEMATOLOGY & [place] [address] Stacy Valle APRN [facility] [place] [address] 06/01/2024 10:30 AM EST Scheduled View [place] [address] 06/01/2024 11:00 AM EST Office [place] [phone] Luis E Chin MD [facility] [place] [address] 06/04/2024 8:30 AM EST Hospital Encounter [place] [phone] Rayshawn Suresh MD [facility] [place] [address] 06/04/2024 8:30 AM EST - 06/04/2024 1:05 PM EST Surgery [place] [phone] Rayshawn Suresh MD [facility] [place] [address] @THORACOSCOPY, SURG; W PLEURODESIS (WRVU 10.83) Scheduled Procedures Name Priority Associated Diagnoses Date/Ti me @THORACOSCOPY, SURG; W PLEURODESIS (WRVU 10.83) metastatic pleural effusion 06/04/2024 8:30 AM EST BRONCHOSCOPY, DIAGNOSTIC (WRVU 2.53) metastatic pleural effusion 06/04/2024 8:30 AM EST DIONAN\ALMA.CATHETER,TUNNELED, WITH SQ PORT OR PUMP OVER 5YR (WRVU 5.79) metastatic pleural effusion 06/04/2024 8:30 AM EST Scheduled Referrals Name Type Priority Associated Diagnoses Orde r Schedule Referral to Speech Therapy Outpatient Referral Routine Tonsil cancer Aspiration pneumonia of right lower lobe, unspecified aspiration pneumonia type Ordered: 03/21/2020 documented as of this encounter Visit Diagnoses Diagnosis Dysphagia, oropharyngeal phase Aspiration pneumonia of right lower lobe, unspecified aspiration pneumonia type Tonsil cancer Malignant neoplasm of tonsil documented in this encounter Care Teams Director Ambulatory Relationship Specialty Start Date End Date Tiny Walters, BATSHEVA [address] [place] [phone] PCP - General Family Medicine 12/01/19 04/07/24 documented as of this encounter
--- OUTSIDE RECORDS SUMMARY | 2024-05-31 01:26 | XMS_ITS | Encounter Summary ---
Author Organization [facility] Address [facility] [place] [address] Care Team Providers Care Signaler Name Role Phone Tiny Walters APRN Primary Care Provider +1- [phone] Encounter Details Date Type Department Care Team (Late st Contact Info) Description 03/27/2020 1:30 PM EST Office Visit Hematology/Oncology at [address] [phone] Tonsil cancer [...] Progress Notes * Tonya Machado RD - 03/27/2020 1:30 PM EST [facility] Dietitian Follow Up Seen By: Tonya [...] Labs: reviewed Estimated body mass index is 26.24 kg/m?? as calculated from the following: Height as of an earlier encounter on 03/27/20: 170.2 cm (5' 7.01). Weight as of an earlier encounter on 03/27/20: 76 kg (167 lb 9.6 oz). Wt Readings from Last 3 Encounters: 03/27/20 76 kg (167 lb 9.6 oz) 03/22/20 78.5 kg (173 lb) 03/20/20 75.5 kg (166 lb 6.4 oz) Previous weights: 02/16/20: 180 lbs 02/11/20: 179 lbs Further weight loss this week. Wt Hx: UBW: % UBW: IBW: +/- 10% % IBW: ___ Edema ___ Ascites ___Muscle wasting Calories: 0052-5232 (30-35 kcal/kg) Protein: 120 grams (1.5 g/kg) Fluid: 2.5 L Nutrition Assessment: Enteral Nutrition: G-tube placed 02/10 by IR - 16 Singaporean balloon retained g-tube If unable to eat orally, recommend 7 cans of Nutren 1.5 via G-tube/day to provide 2625 kcal, 119 gmof protein and 1337 mLs of free water. He did check balloon fill this past week, 4-5 cc water. Slowly increasing. Provided Peptamen formula last week to see if patient would have improved GI tolerance. However, this caused indigestion. Using Nutren 1.5 formula with better tolerance. Increased to 5 cartons per day and working his way up. He tolerated 1.5 cartons at a time over weekend. This morning, he reports tolerating 2 cartons. Agrees to additional feeding during his infusion today. Goal for additional 3 cartons when he is home this afternoon/evening. Food Intake: no oral intake at this time; water by mouth only Teas, vitamins, or other nutritional supplements: n/a [...] donated formula to patient (Nutren 1.5, unopened, unexpired); gravity method ? Set up gravity bag during infusion today - 1 carton of Nutren 1.5 ? Additional protein needs: Prosource TF protein modular to provide additional 11 grams protein perday while patient works to increase TFs Monitoring and Evaluation: Will follow up weekly during treatment. documented in this encounter Plan of Treatment Upcoming Encounters Date Type Department Care Team (Late st Contact Info) Description 05/31/2024 11:30 AM EST Office Visit Hematology/Oncolog y at [address] [phone] Tej Tipton MD [address] [facility] [address] HEMATOLOGY & [place] [address] Stacy Valle APRN [facility] [place] [address] 06/01/2024 10:30 AM EST Scheduled View [place] [phone] 06/01/2024 11:00 AM EST Office [place] [phone] Luis E Chin MD [facility] [place] [address] 06/04/2024 8:30 AM EST Hospital Encounter [place] [phone] Rayshawn Suresh MD [facility] [place] [address] 06/04/2024 8:30 AM EST - 06/04/2024 1:05 PM EST Surgery [place] [address] Rayshawn Suresh MD [facility] [place] [address] @THORACOSCOPY, SURG; W PLEURODESIS (WRVU 10.83) Scheduled [...] tonsil documented in this encounter Care Teams Signaler Relationship Specialty Start Date End Date Tiyn Walters, OUTDOOR ADVENTURE LEADER [address] [place] [phone] PCP - General Family Medicine 12/01/19 04/07/24 documented as of this encounter
--- OUTSIDE RECORDS SUMMARY | 2024-05-31 01:26 | XMS_ITS | Encounter Summary ---
Author Organization Formerly [facility], [facility] Address [facility] [place] [address] Care Team Providers Care Scheduling Agent Name Role Phone Tiny Walters APRN Primary Care Provider +1- [phone] Reason for Visit * Reason Comments Chemotherapy Cycle 1, Day 29; Cis platin * Treatment/Therapy Plan Authorization (Routine) - Closed Specialty Diagnoses / Procedures Referred By Contac t Referred To Contact Diagnoses Tonsil cancer Dehydration Drug-induced nausea and vomiting Procedures TC PALONOSETRON HCL, 25MCG, INJECTION (ALOXI) TC APREPITANT, 1 MG, INJECTION TC CISPLATIN, POWDER OR SOLUTION, 10MG, INJECTION Gume Christy MD [address] [place] [address] [place] [address] [facility] Hem Onc Infusion [address] [place] [phone] Referral ID Status Reason Start Date Expiration Date Visits Re quested Visits Authorized [id number] Closed 01/24/2020 04/17/2021 30 0 Encounter Details Date Type Department Care Team (Late st Contact Info) Description 03/27/2020 11:00 AM EST Infusion Hematology Oncology at [address] [phone] Tonsil cancer Social History Tobacco [...] Progress Notes * Nik Power RN - 03/27/2020 11:00 AM EST INFUSION THERAPY ADMINISTRATION NOTES DIAGNOSIS: Tonsillar cancer CYCLE #: Cycle 1, Day 29 - Cisplatin REASON FOR VISIT: To receive chemotherapy concurrent with radiation. SUBJECTIVE: Zen offers no complaints. OBJECTIVE: VSS. Seen by provider. Ready to treat. LAB DATA: WBC - 4.18, H/H - 11.5/32.4, Plt Ct - 186, ANC - 3.22, Lytes wnl, BUN/CR - 20/1.03, MG++ - 1.8 IV ACCESS: Port accessed off site, flushes readily with brisk blood return. Pre administration: Chemotherapy orders independently verified for drug name, route, and dosage per patient's height, weight and BSA by NIK POWER, RN and Hao De [facility]. REACTIONS (DESCRIPTION, TIME, INTERVENTION AND EFFECTIVENESS) none [...] EST Office Visit Hematology/Oncolog y at [address] [phone] Tej Tipton MD [address] [facility] [address] HEMATOLOGY [place] [address] Stacy Valle APRN [facility] [place] [address] 06/01/2024 10:30 AM EST Scheduled View Only [place] [address] 06/01/2024 11:00 AM EST Office Visit [place]iation [place] [phone] Luis E Chin MD [facility] [place] [address] 06/04/2024 8:30 AM EST Hospital Encounter [place] [phone] Rayshawn Suresh MD [facility] [place] [address] 06/04/2024 8:30 AM EST - 06/04/2024 1:05 PM EST Surgery [place] [phone] Rayshawn Suresh MD [facility] [place] [address] @THORACOSCOPY, SURG; W PLEURODESIS (WRVU 10.83) Scheduled [...] over 2 Minutes, ONCE, 1 dose, On 03/27/20 at 1145, Alternative administration of IV push over 2 minutes is a recommendation from the knuckle bender. Administer prior to chemotherapy., Routine Given 03/27/2020 12:16 PM EST 130 mg CISplatin (PlatinoL) 79 mg in sodium chloride 0.9% 329 mL infusion 79 mg (rounded from 79.2 mg = 40 mg/m2/dose ? 1.98 m2 Treatment Plan BSA from Recorded weight), Intravenous, ONCE, 1 dose, On Fri03/27/20 at 1245, Administer over 60 Minutes, Warning Vesicant/Irritant Medication New Bag 03/27/2020 12:37 PM EST 79 mg 329 mL/hr dexamethasone (Decadron) tablet 10 mg 10 mg, Oral, ONCE, 1 dose, On Fri03/27/20 at 1145, Administer prior to chemotherapy, Routine Given 03/27/2020 12:16 PM EST 10 mg heparin (pf) (porcine) (100 units/mL) flush 5 mL syringe 500 Units 500 Units, Intravenous, ONCE PRN, Starting on Fri03/27/20 at 1123, Until Fri03/27/20 at 1725, Line Care, Refer to Intravenous (IV) Procedure: Accessing Implanted Vascular Access Devices (654) procedure and/or Intravenous (IV) Job Aid: Adult Flushing & Catheter Care (4332) job aid for additional information regarding guidelines and administration., Routine Given 03/27/2020 1:43 PM EST 500 Units palonosetron (Aloxi) (0.25 mg/mL) injection 0.25 mg 0.25 mg, Intravenous, ONCE, 1 dose, On Fri03/27/20 at 1145, Administer over 30 seconds. Administer prior to chemotherapy, Routine Given 03/27/2020 12:16 PM EST 0.25 mg sodium chloride 0.9 % (flush) flush 5-20 mL 5-20 mL, Intravenous, EVERY 1 MIN PRN, Starting on Fri03/27/20 at 1123, Until Fri03/27/20 at 1725, Line Care, Flush pertains to all indwelling lines. Flush per protocol found in the job aid using the link provided on this medication record. Refer to Intravenous (IV) Job Aid: Adult Flushing & Catheter Care (2186) job aid for additional information regarding guidelines and administration., Routine Given 03/27/2020 1:43 PM EST 20 mLs sodium chloride 0.9% infusion 1,000 mL, at 1,000 mL/hr, Intravenous, CONTINUOUS, Starting on Fri03/27/20 at 1145, Until Fri03/27/20 at 1244, Pre-CISplatin New Bag 03/27/2020 11:30 AM EST 1,000 mLs 1000 mL/hr sodium chloride 0.9% infusion 500 mL, at 500 mL/hr, Intravenous, CONTINUOUS, Starting on Fri03/27/20 at 1345, Until Fri03/27/20 at 1444, Post CISplatin New Bag 03/27/2020 12:38 PM EST 500 mLs 500 mL/hr documented in this encounter Care Teams Scheduling Agent Relationship Specialty Start Date End Date Tiny Walters APRN [address] [place] [phone] PCP - General Family Medicine 12/01/19 04/07/24 documented as of this encounter
--- OUTSIDE RECORDS SUMMARY | 2024-05-31 01:26 | XMS_ITS | Encounter Summary ---
Author Organization [facility] Address [facility] [place] [address] Care Team Providers Care Lawyer Probate Name Role Phone Tiny Walters APRN Primary Care Provider +1- [phone] Reason for Visit * Reason Comments IV Medication hydration and antiem etics * Treatment/Therapy Plan Authorization (Routine) - Closed Specialty Diagnoses / Procedures Referred By Contac t Referred To Contact Diagnoses Tonsil cancer Dehydration Drug-induced nausea and vomiting Procedures TC PALONOSETRON HCL, 25MCG, INJECTION (ALOXI) TC APREPITANT, 1 MG, INJECTION TC CISPLATIN, POWDER OR SOLUTION, 10MG, INJECTION Gume Christy MD [address] [place] [address] [place] [address] [facility] Hem Onc Infusion [address] [place] [phone] Referral ID Status Reason Start Date Expiration Date Visits Re quested Visits Authorized [id number] Closed 01/24/2020 04/17/2021 30 0 Encounter Details Date Type Department Care Team (Late st Contact Info) Description 03/24/2020 12:00 PM EST Infusion Hematology Oncology at [address] [phone] Tonsil cancer Social History Tobacco [...] Sign Reading Time Taken Comments Blood Pressure 110/61 03/24/2020 1:28 PM EST Pulse 87 03/24/2020 1:28 PM EST Temperature 36.6 ??C (97.8 ??F) 03/24/2020 1:28 PM ES T Respiratory Rate 18 03/24/2020 1:28 PM EST Oxygen Saturation 100% 03/24/2020 1:28 PM EST Inhaled Oxygen Concentration - - Weight - - Height 170.2 cm (5' 7.01) 03/24/2020 1:28 PM ES T Body Mass Index - - documented in this encounter Progress Notes * Elke Toledo RN - 03/24/2020 12:00 PM EST INFUSION THERAPY ADMINISTRATION NOTES DIAGNOSIS: Tonsillar cancer CYCLE #: Cycle 1, Day 25 - hydration REASON FOR VISIT: To receive hydration SUBJECTIVE: Zen offers no complaints. OBJECTIVE: VSS. IV ACCESS: Port accessed on adm, flushes readily with brisk blood return. Pre administration: Chemotherapy orders independently verified for drug name, route, and dosage per patient's height, weight and BSA by Dorothea De [facility]. REACTIONS (DESCRIPTION, TIME, INTERVENTION AND EFFECTIVENESS) [...] EST Office Visit Hematology/Oncolog y at [address] [phone] Tej Tipton MD [address] [facility] HEMATOLOGY & [place] [address] Stacy Valle APRN [facility] [place] [address] 06/01/2024 10:30 AM EST Scheduled View Only [place] [address] 06/01/2024 11:00 AM EST Office Visit [place] [phone] Luis E Chin MD [facility] [place] [address] 06/04/2024 8:30 AM EST Hospital Encounter [place] [phone] Rayshawn Suresh MD [facility] [place] [address] 06/04/2024 8:30 AM EST - 06/04/2024 1:05 PM EST Surgery [place] [phone] Rayshawn Suresh MD [facility] [place] [address] @THORACOSCOPY, SURG; W PLEURODESIS (WRVU 10.83) Scheduled [...] 5 mg), Intravenous, ONCE, 1 dose, On Fri03/24/20 at 1230 Given 03/24/2020 12:29 PM EST 5.2 mg heparin (pf) (porcine) (100 units/mL) flush 5 mL syringe 500 Units 500 Units, Intravenous, ONCE PRN, Starting on Fri03/24/20 at 1203, Until Fri03/24/20 at 1717, Line Care, Refer to Intravenous (IV) Procedure: Accessing Implanted Vascular Access Devices (654) procedure and/or Intravenous (IV) Job Aid: Adult Flushing & Catheter Care (8067) job aid for additional information regarding guidelines and administration., Routine Given 03/24/2020 1:30 PM EST 500 Units ondansetron (Zofran) tablet 16 mg 16 mg, Oral, ONCE, 1 dose, On Fri03/24/20 at 1230, Routine Given 03/24/2020 12:28 PM EST 16 mg sodium chloride 0.9 % (flush) flush 5-20 mL 5-20 mL, Intravenous, EVERY 1 MIN PRN, Starting on Fri03/24/20 at 1203, Until Fri03/24/20 at 1717, Line Care, Flush pertains to all indwelling lines. Flush per protocol found in the job aid using the link provided on this medication record. Refer to Intravenous (IV) Job Aid: Adult Flushing & Catheter Care (9795) job aid for additional information regarding guidelines and administration., Routine Given 03/24/2020 1:30 PM EST 20 mLs sodium chloride 0.9% infusion 1,000 mL, at 1,000 mL/hr, Intravenous, CONTINUOUS, Starting on Fri03/24/20 at 1230, Until Fri03/24/20 at 1329 New Bag 03/24/2020 12:28 PM EST 1,000 mLs 1000 mL/hr documented in this encounter Care Teams Lawyer Probate Relationship Specialty Start Date End Date Tiny Walters APRN [address] [place] [phone] PCP - General Family Medicine 12/01/19 04/07/24 documented as of this encounter
--- OUTSIDE RECORDS SUMMARY | 2024-05-31 01:26 | XMS_ITS | Encounter Summary ---
Author Organization [facility] [place] [address] Care Team Providers Care Vocal Teacher Name Role Phone Tiny Walters APRN Primary Care Provider +1- [phone] Encounter Details Date Type Department Care Team (Late st Contact Info) Description 03/21/2020 Notes Only Radiation Oncology at [address] [phone] Janeen Duarte RN Social History [...] Pressure - - Pulse - - Temperature 37.4 ??C (99.3 ??F) 03/21/2020 2:22 PM ES T Respiratory Rate 16 03/21/2020 2:22 PM EST Oxygen Saturation - - Inhaled Oxygen Concentration - - Weight - - Height - - Body Mass Index - - documented in this encounter Progress Notes * Janeen Duarte RN - 03/21/2020 2:22 PM EST Radiation Oncology Nursing on Treatment Note Patient seen briefly prior to scheduled xrt today as he went to [facility] ED yesterday. Patient has received 3000 cGy to the head and neck for treatment of tonsillar cancer. Went to ED yesterday with fever, chills, cough and feeling lousy. Was diagnosed with pneumonia and placed on Zpak and Augmentin. Rapid covid test negative. Assessment: He reports feeling mostly beat up and tired today Denies current cough, fever or chills. Started antibiotics this morning. Phlegm thick but manageable. Tube feedings going well. Anticipatory guidance/ interventions: Monitor temperature and report >100.3. Push fluids. Rest as needed. Plan: Weekly otv with Dr. Rae tomorrow. Nursing otv daily prn. documented in this encounter Plan of Treatment Upcoming Encounters Date Type Department Care Team (Late st Contact Info) Description 05/31/2024 11:30 AM EST Office Visit Hematology/Oncolog y at [address] [phone] Tej Tipton MD [address] [facility] HEMATOLOGY & [place] [address] Stacy Valle APRN [facility] [place] [address] 06/01/2024 10:30 AM EST Scheduled View Only [place] [address] 06/01/2024 11:00 AM EST Office Visit [place] [phone] Luis E Chin MD [facility] [place] [address] 06/04/2024 8:30 AM EST Hospital Encounter [place] [address] Rayshawn Suresh MD [facility] [place] [address] 06/04/2024 8:30 AM EST - 06/04/2024 1:05 PM EST Surgery [place] [address] Rayshawn Suresh MD [facility] [place] [address] @THORACOSCOPY, SURG; W PLEURODESIS (WRVU 10.83) Scheduled [...] on filedocumented in this encounter Care Teams Vocal Teacher Relationship Specialty Start Date End Date Tiny Walters APRN [address] [place] [phone] PCP - General Family Medicine 12/01/19 04/07/24 documented as of this encounter
--- OUTSIDE RECORDS SUMMARY | 2024-05-31 01:26 | XMS_ITS | Encounter Summary ---
Author Organization [facility] Address [facility] [place] [address] Care Team Providers Care Environmental Programs Manager Name Role Phone Tiny Walters APRN Primary Care Provider +1- [phone] Encounter Details Date Type Department Care Team (Late Contact Info) Description 03/13/2020 Notes Only Hematology/Oncology at [address] [phone] Alyse Kirk MSW OFFICE OF CARE MANAGEMENT Social History Tobacco [...] Progress Notes * Alyse Kirk MSW - 03/13/2020 11:51 AM EST Follow up with pt during his infusion visit today. He reports he is managing the best he can. He indicated his family was coping as best they can also. He did not identify any new needs at this time.Reminded pt of [facility] availability and will follow for support and resources. documented in this encounter Plan of Treatment Upcoming Encounters Date Type Department Care Team (Late Contact Info) Description 05/31/2024 11:30 AM EST Office Visit Hematology/Oncolog y at [address] [phone] Tej Tipton MD [address] [facility] HEMATOLOGY & [place] [address] Stacy Valle APRN [facility] [place] [address] 06/01/2024 10:30 AM EST Scheduled View Only [place] [address] 06/01/2024 11:00 AM EST Office Visit [place] [phone] Luis E Chin MD [facility] [place] [address] 06/04/2024 8:30 AM EST Hospital Encounter [place] [address] Rayshawn Suresh MD [facility] [place] [address] 06/04/2024 8:30 AM EST - 06/04/2024 1:05 PM EST Surgery [place] [address] Rayshawn Suresh MD [facility] [place] [address] @THORACOSCOPY, SURG; W PLEURODESIS (WRVU 10.83) Scheduled [...] on filedocumented in this encounter Care Teams Environmental Programs Manager Relationship Specialty Start Date End Date Tiny Walters APRN [address] [place] [phone] PCP - General Family Medicine 12/01/19 04/07/24 documented as of this encounter
--- OUTSIDE RECORDS SUMMARY | 2024-05-31 01:26 | XMS_ITS | Encounter Summary ---
[place] [address] Care Team Providers Care Glass Beveler Name Role Phone Romeo Tiny Lindsay APRN Primary Care Provider +1- [phone] Encounter Details Date Type Department Care Team (Late Contact Info) Description 03/21/2020 Telephone Hematology [place] [phone] Miguel Perez DO Social History Tobacco Use [...] Telephone Encounter - Miguel Perez DO - 03/21/2020 7:02 AM EST ED provider from [facility] called back to update regarding CXR results showing ill-defined opacity in the RLL; discussed starting empiric CAP coverage w/ Augmentin + azithro or doxy. Augmentin to provide anaerobic coverage in case of aspiration pneumonia. documented in this encounter Plan of Treatment Upcoming Encounters Date Type Department Care Team (Late Contact Info) Description 05/31/2024 11:30 AM EST Office Visit Hematology/Oncolog y at [address] [phone] Tej Tipton MD [address] [facility] [place] [address] Stacy Valle APRN [facility] [place] [address] 06/01/2024 10:30 AM EST Scheduled View Only [place] [address] 06/01/2024 11:00 AM EST Office Visit [place] [address] Luis E Chin MD [facility] [place] [address] 06/04/2024 8:30 AM EST Hospital Encounter [place] [address] Rayshawn Suresh MD [facility] [place] [address] 06/04/2024 8:30 AM EST - 06/04/2024 1:05 PM EST Surgery [place] [address] Rayshawn Suresh MD [facility] [place] [address] @THORACOSCOPY, SURG; W PLEURODESIS (WRVU 10.83) Scheduled [...] on filedocumented in this encounter Care Teams Glass Beveler Relationship Specialty Start Date End Date Tiny Walters APRN [address] [place] [phone] PCP - General Family Medicine 12/01/19 04/07/24 documented as of this encounter
--- OUTSIDE RECORDS SUMMARY | 2024-05-31 01:26 | XMS_ITS | Encounter Summary ---
Author Organization [facility] Address [facility] [place] [address] Care Team Providers Care Process Design Chemical Engineer Name Role Phone Tiny Walters APRN Primary Care Provider +1- [phone] Reason for Referral * Consultation (Routine) - Closed Specialty Diagnoses / Procedures Referred By Fritz lanier Referred To Contact Radiation Oncology Diagnoses Tonsil cancer Procedures Re-simulation for Radiation Therapy Planning Jose Martin Rae MD [facility] [place] [address] St Rad Onc Office [address] [place] [phone] Referral ID Status Reason Start Date Expiration Date V isits Requested Visits Authorized [id number] Closed Consult, Test & Treat 03/23/2020 03/23/2021 1 1 Encounter Details Date Type Department Care Team (Late st Contact Info) Description 03/22/2020 8:30 AM EST Office Visit Radiation Oncology at [address] [phone] Jose Martin Rae MD [facility] [place] [address] Tonsil cancer Social History Tobacco [...] Sign Reading Time Taken Comments Blood Pressure 116/62 03/22/2020 8:29 AM EST Pulse 70 03/22/2020 8:29 AM EST Temperature 36.6 ??C (97.9 ??F) 03/22/2020 8:29 AM ES T Respiratory Rate - - Oxygen Saturation 100% 03/22/2020 8:29 AM EST Inhaled Oxygen Concentration - - Weight 78.5 kg (173 lb) 03/22/2020 8:29 AM EST w ith boots Height - - Body Mass Index 27.09 03/20/2020 11:12 AM EST documented in this encounter Patient Instructions * Patient Instructions* Jose Martin Rae MD - 03/22/2020 8:30 AM EST For thick spit: Try guaifenesin (robitussin or Mucinex are brand names). Can start with 400 mg three times a day. documented in this encounter Progress Notes * Jose Martin Rae MD - 03/22/2020 8:30 AM EST ON TREATMENT VISIT NOTE Zen Pickering is a 39 y.o. 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 Definitive chemoradiotherapy. Current treatment dose: 34 Gy in 17 fractions. Anticipated total dose: 70 Gy in 35 fractions. Concomitant Therapy: Y ONC BCA CHEMO (AMB) 02/29/2020 03/06/2020 03/13/2020 Day, Cycle Day 1, Cycle 1 Day 8, Cycle 1 Day 15, Cycle 1 CISplatin (PlatinoL) IV 40 mg/m2/dose 40 mg/m2/dose 40 mg/m2/dose ONC BCA CHEMO (AMB) 03/20/2020 Day, Cycle Day 22, Cycle 1 CISplatin (PlatinoL) IV 40 mg/m2/dose Evaluation of Port Verification Films: PORT films have been reviewed, please see FOZIA for details. Intercurrent History: He developed body aches, chills, and fever; he had a cough intermittently. Hewent to the ED, was placed on Augmentin and a Z-filippo; today he is much improved. Changes in medical condition Pain: Odynophagia, 4/10, worse with dryness / swallowing; not requiring BMX or medications at this time Secretions/Dryness: severe dysgeusia; significant xerostomia / thick secretions. Using BSSW. Nutrition: eating soft solids, liquids. Limited by nausea / gagging. G tube: increasing feeding tube use; Swallowing Function: coughing /choking with thick secretions Skin: itching / burning intermittently; using GI: -N/V: mild nausea; using compazine -Bowels: colace and Miralax, no issues Nutrition Assessment: Weight : 80.1 kg initial Change: 78 kg => 78.5 kg Objective: There were no vitals filed for this visit. SKIN: mild skin erythema MUCOSA: patchy mucositis Assessment: Increasing toxicity with dysgeusia, xerostomia, [...] ?? Mucinex prn for thick secretions ?? Alimentation: silvering applicator following ?? Weight stable , using G [...] EST Office Visit Hematology/Oncolog y at [address] [phone] Tej Tipton MD [address] [facility] DR HEMATOLOGY [place] [address] Stacy Valle APRN [facility] [place] [address] 06/01/2024 10:30 AM EST Scheduled View Only [place] [address] 06/01/2024 11:00 AM EST Office Visit [place] [address] Luis E Chin MD [facility] [place] [address] 06/04/2024 8:30 AM EST Hospital Encounter [place] [address] Rayshawn Suresh MD [facility] [place] [address] 06/04/2024 8:30 AM EST - 06/04/2024 1:05 PM EST Surgery [place] [address] Rayshawn Suresh MD [facility] [place] [address] @THORACOSCOPY, SURG; W PLEURODESIS (WRVU 10.83) Scheduled [...] tonsil documented in this encounter Care Teams Process Design Chemical Engineer Relationship Specialty Start Date End Date Tiny Walters APRN [address] [place] [phone] PCP - General Family Medicine 12/01/19 04/07/24 documented as of this encounter
--- OUTSIDE RECORDS SUMMARY | 2024-05-31 01:26 | XMS_ITS | Encounter Summary ---
Author Organization [facility] Address [facility] [place] [address] Care Team Providers Care Structural Metal Fabricator Apprentice Name Role Phone Tiny Walters APRN Primary Care Provider +1- [phone] Encounter Details Date Type Department Care Team (Late st Contact Info) Description 03/27/2020 10:15 AM EST Office Visit Hematology/Oncology at [address] [phone] Gume Christy MD [address] [place] [address] [place] [address] Tonsil cancer; Choking due to phlegm in larynx, initial encounter Social History Tobacco Use Types Packs/Day [...] Sign Reading Time Taken Comments Blood Pressure 130/72 03/27/2020 10:21 AM EST Pulse 77 03/27/2020 10:21 AM EST Temperature 36.5 ??C (97.7 ??F) 03/27/2020 10:[address] Respiratory Rate 18 03/27/2020 10:21 AM EST Oxygen Saturation 100% 03/27/2020 10:21 AM EST Inhaled Oxygen Concentration - - Weight 76 kg (167 lb 9.6 oz) 03/27/2020 10:21 AM EST Height 170.2 cm (5' 7.01) 03/27/2020 10:[address] Body Mass Index 26.24 03/27/2020 10:21 AM EST documented in this encounter Progress Notes * Gume Christy MD - 03/27/2020 10:15 AM EST Images from the original note were not included. Hematology/Oncology Clinic [facility] Patient Active Problem List Diagnosis ??? 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 Odynophagia, progressing to R otalgia, headache, trismus Summer 2019; large R tonsil non-ker SCCa extending to intrinsic tongue, pterygoids, FOM; nonpalable bilateral adenopathy B. Definitive chemoradiation (weekly cisplatin) instituted 02/29/2020; course c/b RLL pneumonia 03/21/2020 ??? Gastrostomy tube in place Balloon-retained (5 mL inflation), 16 Fr, placed by [facility] 02/11/2020 ??? Raynaud's syndrome ONCBCN ONCOLOGY (AMB) 02/29/2020 03/06/2020 Day, Cycle Day 1, Cycle 1 Day 8, Cycle 1 CISplatin (PlatinoL) IV 40 mg/m2/dose = 79 mg 40 mg/m2/dose = 79 mg ONCBCN ONCOLOGY (AMB) 03/13/2020 03/20/2020 Day, Cycle Day 15, Cycle 1 Day 22, Cycle 1 CISplatin (PlatinoL) IV 40 mg/m2/dose = 79 mg 40 mg/m2/dose = 79 mg Med Onc checkup. Due for dose #5 cisplatin; RT fraction #19 (38 Gy). Due to complete radiation 04/18/2020. The day after last week's chemotherapy he began to notice myalgias chills and a fever. [facility] had a negative Covid test, and a chest x-ray showed a small right lower lobe pneumonia. He was placed on a course of a azithromycin plus Augmentin, due for the final Augmentin tablet today. He defervesced within 24 hours generally has felt well since then. He was quite ala rmed by this episode. We talked about increase swallowing safety with a chin tuck maneuver; he had a follow-up with Carrie MARINA with no immediate changes (I have not yet seen her evaluation note). At this point his nutrition is all via the G-tube. He has been getting in 5 cans of Nutren 1.5/day,formerly 1/2 cans per feeding but now he is up to 2 cans per feeding. He finds this is about the maximum volume he can tolerate per day. He tried Peptamen but found that it upset his stomach. He is swallowing water but no food. He is bothered by copious amounts of phlegm, sometimes very thick. He has been using Mucinex. He finds the texture of this phlegm more bothersome than the quantity. It is disturbing his sleep however. His tumor related headache and neck tenderness have resolved. He is not bothered by radiation related mucositis at this point. Chemotherapy specific side effects are stable, with a day or 2 of grade 1 nausea following each dose, controlled with antiemetics, and very mild tinnitus which is nonprogressive. Since starting the Augmentin his bowels have been loose but not frankly diarrhea. Energy fairly well-maintained, KPS 90. Physical exam: He looks well, alert and in good spirits. Oral exam shows a trace of mucositis along the curtain of the soft palate. The right tonsillar tumor is almost completely regressed. The tongue is still impaired in extrusion with deviation to the right. There is mild trismus. Dentition is healthy. No obvious candidiasis. Neck exam shows no palpable adenopathy, no residual tenderness. The chest is clear Right chest Mediport is benign Cardiac exam is normal Abdomen is benign, no hepatosplenomegaly or masses. Normal bowel sounds. G-tube site is clean Extremities are without clubbing cyanosis or edema Neurologic exam shows normal motor and sensory function, reflexes 2+. Cranial nerves normal. Labs: Today's white count 4.18, hemoglobin down slightly at 11.5, platelets 186. ANC is 3220. Chemistry studies: Normal electrolytes, creatinine improved from last week at 1.03, with BUN 20. Magnesium 1.8. Hepatic enzymes normal. Albumin stable at 3.5. [facility] chest x-ray 03/21: small right base infiltrate. Impression: Locally advanced p16 positive tonsil cancer, responding to treatment. Presumed aspiration pneumonia, resolving. He is now dependent on the G-tube for nutrition, and has lost some weight relative to baseline. Copious phlegm is a significant problem, likely to get worse. Plan: No change in chemotherapy or supportive care regimen. Continue safe swallowing practices withwater. Dietitian visit today to discuss options for getting him more calories and protein if possible. It may be useful to obtain a portable suction machine to help handle the phlegm and I will work on those orders. Follow-up next week in anticipation of chemotherapy dose #6. Gume Christy MD, FACP tire shop manager Hematology/Oncology Section [facility]/[address] [address] Voice recognition software used for this note; please excuse teacher adventure education errors. I personally reviewed past medical, surgical, family medical histories, reviewed current medications, vital signs, labs, and performed full review of systems. These are documented below the narrativefor clarity and succinctness. No outpatient medications have been marked as taking for the 03/27/20 encounter (Office Visit) withGume Christy MD. Review of Systems: Review of systems is negative for other PRODUCTION OFFICER, bone, pulmonary, cardiac, GI, , extremity, neurologic, endocrine, skin, constitutional, emotional, or functional problems. Vitals Office Visit from 03/27/2020 in Hematology/Oncology at [facility] Weight 76 kg (167 lb 9.6 oz) Height 170.2 cm (5' 7.01) BSA (Calculated - sq m) 1.9 sq meters BMI (Calculated) 26.24 Temp 36.5 ??C (97.7 ??F) Temp src Temporal Heart Rate 77 Heart Rate Source Right, NIBP Resp 18 BP 130/72 BP Location Right arm Patient Position Sitting SpO2 100 % Karnofsky Score 80 Motor Neuropathy N/A Sensory Neuropathy N/A Body surface area is 1.9 meters squared. Wt Readings from Last 3 Encounters: 03/27/20 76 kg (167 lb 9.6 oz) 03/22/20 78.5 kg (173 lb) 03/20/20 75.5 kg (166 lb 6.4 oz) No results found for this or any previous visit (from the past 72 hour(s)). ++++++++++++++++++++++++++++++++++++++++++++++++++++ documented in this encounter Plan of Treatment Upcoming Encounters Date Type Department Care Team (Late st Contact Info) Description 05/31/2024 11:30 AM EST Office Visit Hematology/Oncolog y at [address] [phone] Tej Tipton MD [address] [facility] HEMATOLOGY & [place] [address] Stacy Valle APRN [facility] [place] [address] 06/01/2024 10:30 AM EST Scheduled View [place] [phone] 06/01/2024 11:00 AM EST Office Visit [place] [phone] Luis E Chin MD [facility] [place] [address] 06/04/2024 8:30 AM EST Hospital Encounter [place] [phone] Rayshawn Suresh MD [facility] [place] [address] 06/04/2024 8:30 AM EST - 06/04/2024 1:05 PM EST Surgery [place] [phone] Rayshawn Suresh MD [facility] [place] [address] @THORACOSCOPY, SURG; W PLEURODESIS (WRVU 10.83) Scheduled [...] Diagnosis Tonsil cancer Malignant neoplasm of tonsil Choking due to phlegm in larynx, initial encounter documented in this encounter Care Teams Structural Metal Fabricator Apprentice Relationship Specialty Start Date End Date Tiny Walters, BATSHEVA [address] [place] [phone] PCP - General Family Medicine 12/01/19 04/07/24 documented as of this encounter
--- OUTSIDE RECORDS SUMMARY | 2024-05-31 01:27 | XMS_ITS | Encounter Summary ---
Author Organization [place] [address] Care Team Providers Care Social Media Analyst Name Role Phone Tiny Walters APRN Primary Care Provider [phone]- [phone] Reason for Visit * Auth/Cert Specialty Diagnoses / Procedures Referred By Fritz lanier Referred To Contact Diagnoses Tonsil cancer Procedures VENOUS ACCESS PLACEMENT PERCUTANEOUS GASTROSTOMY Referral ID Status Reason Start Date Expiration Date Visits Re quested Visits Authorized [id number] 1 1 Encounter Details Date Type Department Care Team (Late st Contact Info) Description 02/11/2020 1:28 [place] [phone] Trang Granado MD [facility] [place] [address] Anesthesia Record Procedure Summary Procedure Name Responsible Anesthesiologist Anesthesia Start Time Anesthesia Stop Time VENOUS ACCESS PLACEMENT Trang Granado MD 02/11/20 1328 02/11/20 1524 Events Date Time Event Comment 02/11/2020 1248 1328 AN Verify 1328 Start 1335 An Start Data 1343 An Induction 1345 An Intubation 1349 Anesthesia Ready 1501 Procedure Stop 1507 Extubation/LMA Out 1512 an stop data 1524 Recovery or ICU Handoff Carmen ent care was transferred to the destination unit staff after review of the patient's medical history, current anesthetic/surgical status and plan, according to the Provider Handoff Checklist. 1524 Stop Meds Name Total Midazolam 2 mg IV Lidocaine 60 mg Propofol 200 mg Rocuronium 10 mg Ondansetron 4 mg Dexamethasone 8 mg ceFAZolin (Ancef) 2 g in dextrose 5% 100 mL infusion 2 g HYDROmorphone 0.6 mg Succinylcholine 100 mg Propofol INF 328.86 mg glucagon (human recombinant) injection S olR 1 mg 1 mg lactated ringers infusion 800 mL * Agents Name O2 Air N2O Isoflurane (et) * Blood No blood administrations on file. Lines, Drains, and Airways Type Details Placement Removal Enterostomy Tube 02/11/20; 1447; gastrostomy tube with balloon, PEG (percutaneous endoscopic gastrostomy); LUQ (left upper quadrant); feeding; 16 fr Gastostomy Tube w/ 3-5 ml balloon MD Choi 02/11/20 1447 by Michi Byers, RN (RETIRED) Peripheral IV Line - Single Lumen 02/11/20; 1238; metacarpal vein (top of hand), right; [id number] catheter system; 20 gauge, 1 in length; Elli Benson RN; distraction, intradermal injection, tolerated well, appears comfortable; 0; no longer indicated, catheter/device intact, removed per policy/procedure, site care per policy/procedure; 02/11/20; 1700 02/11/20 1238 by Elli Benson RN 02/11/20 1700 by Promise Lima, RN ETT Mask Ventilation: Parvez espinoza (1); ETT Type: Cuffed, Oral; ETT Size: 7.5 mm; Indirect: Video; Notes: Asleep, Pre-O2, RSI, Stylette; Laryngoscopy Grade: 1; ETT Placement Verified By: Capnometry, Visual; Secured at Teeth: 22 cm; Inserted by: Edis BEAVERS CRNA; Removal Date: 02/11/20; Removal Time: 15002/11/20 1350 by Jigar Beavers CRNA 02/11/20 1507 by Jigar Beavers CRNA (RETIRED) Implanted Port - Single Lumen (non-apheresis) 02/11/20; 1435; power injectable port (8f mini power port); other (see comments) (CHENG); DARY; removed by Ty; KERRI not present upon assessment; 08/10/20; 1332 02/11/20 1435 by Dianne Christy 08/10/20 1332 by Jr Jose Angel Ramsay RN documented in this encounter Social History Tobacco [...] OR Notes * Anesthesia Postprocedure Evaluation - Trang Granado MD - 02/16/2020 3:10 PM EDT Department of Anesthesiology Post-procedure Note Patient: Zen Pickering Procedure Summary Date: 02/11/20 Room / Location: [facility] INTERVENTIONAL RADIOLOGY 2 / [facility] Anesthesia Start: 1328 Anesthesia Stop: 1524 Procedures: VENOUS ACCESS PLACEMENT (N/A ) PERCUTANEOUS GASTROSTOMY (N/A ) Diagnosis: (Tonsil cancer) Surgeon: Donnie Lema MD Responsible Provider: Trang Granado MD Anesthesia Type: general ASA Status: 2 All Anesthesia Providers: Anesthesiologist: Trang Granado MD OFFICE SPEC: Jigar Beavers CRNA Vitals Value Taken Time BP 126/81 02/11/20 1600 Temp 36.1 ??C (97 ??F) 02/11/20 1522 Pulse Resp 16 02/11/20 1600 SpO2 99 % 02/11/20 1600 Pain Level Patient Location: PACU/[facility] Level of Consciousness: Awake and Alert Pain Management: Satisfactory Analgesia PONV: None Cardiovascular Status: At Baseline Respiratory Status: At Baseline Postoperative Fluid Status: Intravascular EUvolemia Possible Anesthetic Complications: NONE apparent at time of evaluation Final Primary Anesthesia Type: General (The anesthetic type performed was the same as planned.) Comments: * Anesthesia Preprocedure Evaluation - Trang Granado MD - 02/11/2020 8:29 AM EDT Pre-Anesthesia Evaluation for: Zen Pickering a 39 y.o. male. Procedure(s): VENOUS ACCESS PLACEMENT PERCUTANEOUS GASTROSTOMY Patient Active Problem List Diagnosis ??? Raynaud's syndrome ??? 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 Asthma ??? Raynaud's disease ??? Tonsil cancer Past Surgical History: Procedure Laterality Date ??? PRO LARYNGOSCOPY, DIRCT, OP SCOPE, BIOPSY Bilateral 01/05/2020 LARYNGOSCOPY, MICROSCOPE, WITH BIOPSY (WRVU 3.55) performed by Yrn Banuelos MD at [facility] MAIN OR ??? PRO REMOVAL OF TONSILS, 12+ Y/O Left 01/28/2020 TONSILLECTOMY AGE 12 AND OVER (WRVU 3.45) performed by Yrn Banuelos MD at [facility] MAIN OR Social History Tobacco Use ??? Smoking status: Never Smoker ??? Smokeless tobacco: Never Used Substance Use Topics ??? Alcohol use: Yes Alcohol/week: 1.0 standard drinks Types: 1 Cans of beer per week Frequency: 2-4 times a month Drinks per session: 1 or 2 Social History Substance and Sexual Activity Drug Use Never No Known Allergies Medications: MAR and/or home medications have been reviewed. Physical Exam: No data found. There is no height or weight on file to calculate BMI. Airway Assessment: Mallampati: I TM distance: >3 FB Neck ROM: full Cardiovascular Assessment: cardiovascular exam normal Pulmonary Assessment: pulmonary exam normal Dental Assessment: - normal exam Misc Assessment: IV access: Peripheral line Other exam findings: Limited mouth opening Anesthesia Plan: ASA 2 general, with a(n) intravenous induction Zen Pickering is a 39 y.o. male (BMI 28) with a hx significant for R tonsillar tumor presenting for Gtube placement ?? PMHx: above. Also mild asthma, largely seasonal/exercise induced. No recent inhaler use. Additionally has been told he may have OPHELIA, but no CPAP at this point. Prior anesthetic: cmac grade 1- difficulty accessing mouth. Asleep fiberoptic without difficulty. ?? NPO adequate. Activity prior to surgery: METS>4. Region - Other Informed Consent: Anesthetic plan and risks discussed with patient. Plan discussed with OFFICE SPEC. PAT Clinic Note documented in this encounter Plan of Treatment Upcoming Encounters Date Type Department Care Team (Angie Contact Info) Description 05/31/2024 11:30 AM EST Office Visit Hematology/Oncolog y at [address] [phone] Tej Tipton MD [address] [facility] HEMATOLOGY & [place] [address] Stacy Valle APRN [facility] [place] [address] 06/01/2024 10:30 AM EST Scheduled View [place] [phone] 06/01/2024 11:00 AM EST Office [place] [phone] Luis E Chin MD [facility] [place] [address] 06/04/2024 8:30 AM EST Hospital Encounter [place] [phone] Rayshawn Suresh MD [facility] [place] [address] 06/04/2024 8:30 AM EST - 06/04/2024 1:05 PM EST Surgery [place] [address] Rayshawn Suresh MD [facility] [place] [address] @THORACOSCOPY, SURG; W PLEURODESIS (WRVU 10.83) Scheduled [...] MAR Action Action Date Dose Rate Site ceFAZolin (Ancef) 2 g in dextrose 5% 100 mL infusion 2 g, Intravenous, ONCE, 1 dose, On Fri02/11/20 at 1230, Administer over 30 Minutes, Redose every 3 hours if CrCl is greater than 20. Redose every 8 hours if CrCl is less than 20., Angio/IR (Day of Procedure), Indication for (Active or Suspected): Prophylaxis Given 02/11/2020 2:00 PM EDT 2 g dexamethasone (Decadron) injection PRN, Starting on Fri02/11/20 at 1439, Until Fri02/11/20 at 1528, Anesthesia Intra-op, Routine Given 02/11/2020 2:39 PM EDT 8 mg glucagon (human recombinant) injection SolR 1 mg 1 mg, Intravenous, ONCE, 1 dose, On Fri02/11/20 at 1345, For use in Interventional Radiology (IR) only for procedure with direct provider supervision and verbal order., Angio/IR (Intra-Procedure), Routine Given 02/11/2020 2:38 PM EDT 1 mg HYDROmorphone (DILAUDID) injection PRN, Starting on Fri02/11/20 at 1335, Until Fri02/11/20 at 1528, Anesthesia Intra-op, Routine Given 02/11/2020 1:35 PM EDT 0.6 mg lidocaine (PF) (XYLOCAINE) 100 mg/5 mL (2 %) injection PRN, Starting on Fri02/11/20 at 1342, Until Fri02/11/20 at 1528, Anesthesia Intra-op, Routine Given 02/11/2020 1:42 PM EDT 60 mg midazolam (PF) (VERSED) multi-dose injection PRN, Starting on Fri02/11/20 at 1328, Until Fri02/11/20 at 1528, Anesthesia Intra-op, Routine Given 02/11/2020 1:28 PM EDT 2 mg ondansetron (ZOFRAN) injection PRN, Starting on Fri02/11/20 at 1458, Until Fri02/11/20 at 1528, Anesthesia Intra-op, Routine Given 02/11/2020 2:58 PM EDT 4 mg propofoL (Diprivan) 10 mg/mL bolus injection (Anesthesia) PRN, Starting on Fri02/11/20 at 1343, Until Fri02/11/20 at 1528, Anesthesia Intra-op Given 02/11/2020 1:43 PM EDT 200 mg propofoL (Diprivan) infusion CONTINUOUS PRN, Starting on Fri02/11/20 at 1337, Until Fri02/11/20 at 1528, Anesthesia Intra-op, Routine New Bag 02/11/2020 1:37 PM EDT 50 mcg/kg/min 24.4 mL/hr rocuronium (ZEMURON) multi-dose injection PRN, Starting on Fri02/11/20 at 1342, Until Fri02/11/20 at 1528, Anesthesia Intra-op, Routine Given 02/11/2020 1:42 PM EDT 10 mg succinylcholine chloride (Quelicin) injection PRN, Starting on Fri02/11/20 at 1343, Until Fri02/11/20 at 1528, Anesthesia Intra-op, Routine Given 02/11/2020 1:43 PM EDT 100 mg documented in this encounter Care Teams Social Media Analyst Relationship Specialty Start Date End Date Tiny Walters APRN [address] [place] [phone] PCP - General Family Medicine 12/01/19 04/07/24 documented as of this encounter
--- OUTSIDE RECORDS SUMMARY | 2024-05-31 01:27 | XMS_ITS | Encounter Summary ---
Author Organization [facility] Address [facility] [place] [address] Care Team Providers Care Radiology Therapist Name Role Phone Tiny Walters APRN Primary Care Provider +1- [phone] Encounter Details Date Type Department Care Team (Late st Contact Info) Description 02/22/2020 Orders Only Hematology [place] [address] Gume Christy MD [address] [place] [address] [place] [address] Social History Tobacco Use Types Packs/Day Years [...] Progress Notes * Gume Christy MD - 02/22/2020 12:12 PM EDT [facility] HEAD [facility] NECK CANCER PROGRAM Medical Oncology Scheduling constraints require that chemoRT start on Wednesday 02/28, with hydration Saturday 03/03. Willrevert to Friday/ schedule thereafter. [place] plan dates adjusted. Gume Christy MD, FACP Hematology/Oncology Section, [facility] nutrition services worker, [employer] at [facility] [phone] documented in this encounter Plan of Treatment Upcoming Encounters Date Type Department Care Team (Late st Contact Info) Description 05/31/2024 11:30 AM EST Office Visit Hematology/Oncolog y at [address] [phone] Tej Tipton MD [address] [facility] HEMATOLOGY & [place] [address] Stacy Valle APRN [facility] [place] [address] 06/01/2024 10:30 AM EST Scheduled View [place] [phone] 06/01/2024 11:00 AM EST Office [place] [phone] Luis E Chin MD [facility] [place] [address] 06/04/2024 8:30 AM EST Hospital Encounter [place] [phone] Rayshawn Suresh MD [facility] [place] [address] 06/04/2024 8:30 AM EST - 06/04/2024 1:05 PM EST Surgery [place] [address] Rayshawn Suresh MD [facility] [place] [address] @THORACOSCOPY, SURG; W PLEURODESIS (WRVU 10.) Scheduled [...] on filedocumented in this encounter Care Teams Radiology Therapist Relationship Specialty Start Date End Date Tiny Walters, PRODUCTION OR PLANT ENGINEER [address] [place] [phone] PCP - General Family Medicine 12/01/19 04/07/24 documented as of this encounter
--- OUTSIDE RECORDS SUMMARY | 2024-05-31 01:27 | XMS_ITS | Encounter Summary ---
Author Organization [facility] Address [facility] [place] [address] Care Team Providers Care Nut Picker Name Role Phone Tiny Walters APRN Primary Care Provider +1- [phone] Reason for Visit * Reason Comments Other hydration * Treatment/Therapy Plan Authorization (Routine) - Closed Specialty Diagnoses / Procedures Referred By Contac t Referred To Contact Diagnoses Tonsil cancer Dehydration Drug-induced nausea and vomiting Procedures TC PALONOSETRON HCL, 25MCG, INJECTION (ALOXI) TC APREPITANT, 1 MG, INJECTION TC CISPLATIN, POWDER OR SOLUTION, 10MG, INJECTION Gume Christy MD [address] [place] [address] [place] [address] [facility] Hem Onc Infusion [address] [place] [phone] Referral ID Status Reason Start Date Expiration Date Visits Re quested Visits Authorized [id number] Closed 01/24/2020 04/17/2021 30 0 Encounter Details Date Type Department Care Team (Late st Contact Info) Description 03/03/2020 12:00 PM EST Infusion Hematology Oncology at [address] [phone] Tonsil cancer Social History Tobacco [...] Sign Reading Time Taken Comments Blood Pressure 141/76 03/03/2020 12:23 PM EST Pulse 61 03/03/2020 12:23 PM EST Temperature 37 ??C (98.6 ??F) 03/03/2020 12:23 PM EST Respiratory Rate 16 03/03/2020 12:23 PM EST Oxygen Saturation 100% 03/03/2020 12:23 PM EST Inhaled Oxygen Concentration - - Weight 82.1 kg (181 lb) 03/03/2020 12:23 PM EST Height 170.2 cm (5' 7.01) 03/03/2020 12:[address] Body Mass Index 28.34 03/03/2020 12:23 PM EST documented in this encounter Progress Notes * Taniya Barajas RN - 03/03/2020 12:00 PM EST INFUSION THERAPY ADMINISTRATION NOTES TIME TREATMENT STARTED: 1224 TIME TREATMENT ENDED: 1344 DIAGNOSIS: head and neck cancer PROTOCOL:na CYCLE #: 1 day 4 REASON FOR VISIT: hydration/antiemetics SUBJECTIVE Zen Pickering offers no complaints. I feel good OBJECTIVE Pt had sutures removed yesterday from gtube site, flushing tube daily. REACTIONS (DESCRIPTION, TIME, INTERVENTION AND EFFECTIVENESS) none ASSESSMENT Zen Pickering was awake, alert and he tolerated treatment well. PLAN Return to clinic Friday with labs, see Dr. Christy and week # 2 of cisplatin radiation documented in this encounter Plan of Treatment Upcoming Encounters Date Type Department Care Team (Late st Contact Info) Description 05/31/2024 11:30 AM EST Office Visit Hematology/Oncolog y at [address] [phone] Tej Tipton MD [address] [facility] HEMATOLOGY & [place] [address] Stacy Valle APRN [facility] [place] [address] 06/01/2024 10:30 AM EST Scheduled View [place] [address] 06/01/2024 11:00 AM EST Office [place] [address] Luis E Chin MD [facility] [place] [address] 06/04/2024 8:30 AM EST Hospital Encounter Main [place] [address] Rayshawn Suresh MD [facility] [place] [address] 06/04/2024 8:30 AM EST - 06/04/2024 1:05 PM EST Surgery [place] [phone] Rayshawn Suresh MD [facility] [place] [address] @THORACOSCOPY, SURG; W PLEURODESIS (WRVU 10.83) Scheduled [...] 5 mg), Intravenous, ONCE, 1 dose, On Fri03/03/20 at 1245 Given 03/03/2020 12:42 PM EST 5.2 mg heparin, porcine 100 unit/mL flush 500 Units 500 Units, Intravenous, ONCE PRN, Starting on Fri03/03/20 at 1227, Until Fri03/03/20 at 1545, Line Care, Refer to Intravenous (IV) Procedure: Accessing Implanted Vascular Access Devices (654) procedure and/or Intravenous (IV) Job Aid: Adult Flushing & Catheter Care (6408) job aid for additional information regarding guidelines and administration., Routine Given 03/03/2020 1:42 PM EST 500 Units ondansetron (Zofran) tablet 16 mg 16 mg, Oral, ONCE, 1 dose, On Fri03/03/20 at 1245, Routine Given 03/03/2020 12:43 PM EST 16 mg sodium chloride 0.9 % (flush) flush 5-20 mL 5-20 mL, Intravenous, EVERY 1 MIN PRN, Starting on Fri03/03/20 at 1227, Until Fri03/03/20 at 1545, Line Care, Flush pertains to all indwelling lines. Flush per protocol found in the job aid using the link provided on this medication record. Refer to Intravenous (IV) Job Aid: Adult Flushing & Catheter Care (9160) job aid for additional information regarding guidelines and administration., Routine Given 03/03/2020 1:41 PM EST 20 mLs sodium chloride 0.9% infusion 1,000 mL, at 1,000 mL/hr, Intravenous, CONTINUOUS, Starting on Fri03/03/20 at 1245, Until Fri03/03/20 at 1344 New Bag 03/03/2020 12:35 PM EST 1,000 mLs 1000 mL/hr documented in this encounter Care Teams Nut Picker Relationship Specialty Start Date End Date Tiny Walters APRN [address] [place] [phone] PCP - General Family Medicine 12/01/19 04/07/24 documented as of this encounter
--- OUTSIDE RECORDS SUMMARY | 2024-05-31 01:27 | XMS_ITS | Encounter Summary ---
Author Organization [facility] Address [facility] [place] [address] Care Team Providers Care Concrete Crusher Loader Operator Name Role Phone Tiny Walters APRN Primary Care Provider +1- [phone] Encounter Details Date Type Department Care Team (Late st Contact Info) Description 03/13/2020 10:15 AM EST Office Visit Hematology/Oncology at [address] [phone] Gume Christy MD [address] [place] [address] [place] [address] Tonsil cancer Social History Tobacco Use Types [...] Sign Reading Time Taken Comments Blood Pressure 122/74 03/13/2020 10:15 AM EST Pulse 64 03/13/2020 10:15 AM EST Temperature 36.6 ??C (97.8 ??F) 03/13/2020 10:[address] Respiratory Rate 16 03/13/2020 10:15 AM EST Oxygen Saturation 100% 03/13/2020 10:15 AM EST Inhaled Oxygen Concentration - - Weight 77.6 kg (171 lb) 03/13/2020 10:15 AM EST Height 170.2 cm (5' 7.01) 03/13/2020 10:[address] Body Mass Index 26.78 03/13/2020 10:15 AM EST documented in this encounter Progress Notes * Gume Christy MD - 03/13/2020 10:15 AM EST Hematology/Oncology Clinic [facility] Patient Active Problem List Diagnosis ??? 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 Odynophagia, progressing to R otalgia, headache, trismus Summer 2019; large R tonsil non-ker SCCa extending to intrinsic tongue, pterygoids, FOM; nonpalable bilateral adenopathy B. Definitive chemoradiation (weekly cisplatin) instituted 02/29/2020 ??? Gastrostomy tube in place Balloon-retained (5 mL inflation), 16 Fr, placed by [facility] 02/11/2020 ??? Raynaud's syndrome ONCBCN ONCOLOGY (AMB) 02/29/2020 03/06/2020 Day, Cycle Day 1, Cycle 1 Day 8, Cycle 1 CISplatin (Platinol) IV 40 mg/m2/dose = 79 mg 40 mg/m2/dose = 79 mg Med Onc checkup. Due for dose #3 cisplatin; RT fraction #10 (20 Gy). Somewhat more overall toxicity in the past week. He has had more trouble eating, mostly due to severely decreased taste sensation. His swallowing is intact, makes the ageusia more bothersome. He is able to tolerate yogurt, but regular meals sit heavily in his stomach. He is able to take some boost and is started taking a few tube feedings. Irritation after tube feedings is unpleasant however. He has had no dysphagia. Trismus is unchanged. Tumor related pain in the right jaw radiating up to the ear is roughly the same. He has been using ibuprofen 3-4 times a day with good control. Energy has diminished sharply, and he is planning on going off on short-term disability as of today. He is able to keep up with ADLs however. He has noticed some intermittent tinnitus. No peripheral neuropathy. Physical exam: He looks well, in no acute distress. Voice is clear Oral exam is benign, tongue still deviates moderately to the right. Trismus unchanged, approximately 2 cm interincisor distance. No visible mucositis, no signs of candidiasis. There is still fullnessin the right soft palate but limited opening renders the oral exam incomplete. Neck is without palpable adenopathy. Lungs are clear Mediport is benign Cardiac exam is normal Abdomen is benign, no hepatosplenomegaly or masses, G-tube site clean Extremities are normal, without clubbing cyanosis or edema Neurologic exam shows normal motor and sensory function. Cranial nerves normal. Reflexes 2+. Labs: Today's white count is 7.84, hemoglobin down slightly at 13.0, platelets 322. Chemistry panelshows normal electrolytes, normal hepatic enzymes, magnesium 2.0. Creatinine however is increased from baseline 0.95 up to today's value of 1.20. Impression: Clinical T4 radiographic N1 p16 positive right tonsil cancer, ready for week 3 chemotherapy and ongoing radiation. He has had some increased toxicity with GI intolerance, possibly due to chemotherapy but may be more due to the effects of decreased taste sensation. Intermittent tinnitus likely due from chemotherapy, grade 1 at worst. Rising creatinine, likely due to combination of cisplatin, suboptimal hydration, and ibuprofen. Plan: Stressed the importance of getting at least 64 ounces of extra liquid per day. Recommended that he take a dose of Compazine 30 minutes before attempting to eat. Had daily MiraLAX to daily Colace for bowels. Recommended that he stop taking the ibuprofen, and substitute acetaminophen instead; reiterated the daily maximum dose of approximately 3 g. His will help him with getting enough hydration. Checkup with our cancer center dietitian today. If creatinine continues to rise, consider cisplatin dose reduction versus switching to an alternative chemotherapy regimen. Going out on short-term disability is medically appropriate. Gume Christy MD, FACP horse stud manager Hematology/Oncology Section [facility] [address] Voice recognition software used for this note; please excuse assistant director of security errors. I personally reviewed past medical, surgical, family medical histories, reviewed current medications, vital signs, labs, and performed full review of systems. These are documented below the narrativefor clarity and succinctness. Outpatient Medications Marked as Taking for the 03/13/20 encounter (Office Visit) with Gume Christy MD Medication Sig Dispense Refill ??? polyethylene glycoL (Miralax) 17 gram/dose Powder Take 17 g by mouth daily. ??? docusate sodium (Colace) 100 mg Capsule Take 100 mg by mouth 2 times daily. ??? Ibuprofen 200 mg Capsule Take 600 mg by mouth every 6 hours as needed. ??? prochlorperazine (Compazine) 10 mg Tablet Take 1 tablet by mouth every 6 hours as needed for Nausea. 30 tablet 3 ??? venlafaxine XR (Effexor-XR) 75 mg Capsule, Sust. Release 24 hr TAKE ONE CAPSULE BY MOUTH EVERY DAY Review of Systems: Review of systems is negative for other WATER TREATMENT PLANT OPERATOR, bone, pulmonary, cardiac, GI, , extremity, neurologic, endocrine, skin, constitutional, emotional, or functional problems. Vitals Office Visit from 03/13/2020 in Hematology/Oncology at [facility] Weight 77.6 kg (171 lb) Height 170.2 cm (5' 7.01) BSA (Calculated - sq m) 1.91 sq meters BMI (Calculated) 26.77 Temp 36.6 ??C (97.8 ??F) Temp src Temporal Heart Rate 64 Heart Rate Source Right, NIBP Resp 16 BP 122/74 BP Location Right arm Patient Position Sitting SpO2 100 % Karnofsky Score 90 Body surface area is 1.92 meters squared. Wt Readings from Last 3 Encounters: 03/13/20 77.6 kg (171 lb) 03/09/20 79.2 kg (174 lb 9.6 oz) 03/06/20 80.6 kg (177 lb 12.8 oz) No results found for this or any previous visit (from the past 72 hour(s)). ++++++++++++++++++++++++++++++++++++++++++++++++++++ documented in this encounter Plan of Treatment Upcoming Encounters Date Type Department Care Team (Late st Contact Info) Description 05/31/2024 11:30 AM EST Office Visit Hematology/Oncolog y at [address] [phone] Tej Tipton MD [address] [facility] HEMATOLOGY & [place] [address] Stacy Valle APRN [facility] [place] [address] 06/01/2024 10:30 AM EST Scheduled View Only Radiation Oncology at [place] [phone] 06/01/2024 11:00 AM EST Office Visit Radiation Oncology at [place] [phone] Luis E Chin MD [facility] [place] [address] 06/04/2024 8:30 AM EST Hospital Encounter [place] [phone] Rayshawn Suresh MD [facility] [address] 06/04/2024 8:30 AM EST - 06/04/2024 1:05 PM EST Surgery [place] [phone] Rayshawn Suresh MD [facility] [place] [address] @THORACOSCOPY, SURG; W PLEURODESIS (WRVU 10.83) Scheduled [...] tonsil documented in this encounter Care Teams Concrete Crusher Loader Operator Relationship Specialty Start Date End Date Tiny Walters APRN [address] [place] [phone] PCP - General Family Medicine 12/01/19 04/07/24 documented as of this encounter
--- OUTSIDE RECORDS SUMMARY | 2024-05-31 01:27 | XMS_ITS | Encounter Summary ---
Author Organization [facility] Address [facility] [place] [address] Care Team Providers Care Mortar Mixer Name Role Phone Tiny Walters APRN Primary Care Provider +1- [phone] Encounter Details Date Type Department Care Team (Late st Contact Info) Description 02/09/2020 Orders Only Hematology [place] [address] Gume Christy MD [address] [place] [address] [place] [address] Social History Tobacco Use Types Packs/Day Years [...] Progress Notes * Gume Christy MD - 02/09/2020 3:13 PM EDT [facility] HEAD AND NECK CANCER PROGRAM Medical Oncology Phone Note L tonsillectomy performed 01/28/2020: no malignancy. Mediport and G-tube have been placed. Radiationsimulation booked for 02/15. Treatment likely to commence 02/27; chemo orders updated. Gume Christy MD, FACP Hematology/Oncology Section, [facility] human services assistant, [employer] at [facility] [phone] documented in this encounter Plan of Treatment Upcoming Encounters Date Type Department Care Team (Late st Contact Info) Description 05/31/2024 11:30 AM EST Office Visit Hematology/Oncolog y at [address] [phone] Tej Tipton MD [address] [facility] HEMATOLOGY & [place] [address] Stacy Valle APRN [facility] [place] [address] 06/01/2024 10:30 AM EST Scheduled View [place] [phone] 06/01/2024 11:00 AM EST Office Visit [place] [phone] Luis E Chin MD [facility] [place] [address] 06/04/2024 8:30 AM EST Hospital Encounter [place] [phone] Rayshawn Suresh MD [facility] [place] [address] 06/04/2024 8:30 AM EST - 06/04/2024 1:05 PM EST Surgery [place] [address] Rayshawn Suresh MD [facility] [place] [address] @THORACOSCOPY, SURG; W PLEURODESIS (WRVU 10.83) Scheduled [...] on filedocumented in this encounter Care Teams Mortar Mixer Relationship Specialty Start Date End Date Tiny Walters, DIAL REFINISHER [address] [place] [phone] PCP - General Family Medicine 12/01/19 04/07/24 documented as of this encounter
--- OUTSIDE RECORDS SUMMARY | 2024-05-31 01:27 | XMS_ITS | Encounter Summary ---
Author Organization [facility] Address [facility] [place] [address] Care Team Providers Care Shopper'S Aide Name Role Phone Tiny Walters APRN Primary Care Provider +1- [phone] Encounter Details Date Type Department Care Team (Late st Contact Info) Description 03/08/2020 2:30 PM EST TH Visit (TeleHealth) Hematology/Oncology at [address] [phone] Carrie Jacob SLP Tonsil cancer Social History Tobacco Use Types [...] encounter Patient Instructions * Patient Instructions* Carrie Jacob SLP - 03/08/2020 2:30 PM EST Feel free to reach out with any questions regarding the swallowing exercise we discussed or anything in the information packet that was emailed to you. We will plan to have a follow up phone call again on 04/05. 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 HPI: Patient Active Problem List Diagnosis Code ??? 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 Raynaud's syndrome I73.00 ??? Gastrostomy tube in place Z93.1 Meds: reviewed Labs: reviewed RD visit 03/06/20: Estimated body mass index is 27.84 kg/m?? as calculated from the following: Height as of an earlier encounter on 03/06/20: 170.2 cm (5' 7.01). Weight as of an earlier encounter on 03/06/20: 80.6 kg (177 lb 12.8 oz). Wt Readings from Last 3 Encounters: 03/06/20 80.6 kg (177 lb 12.8 oz) 03/03/20 82.1 kg (181 lb) 03/01/20 83.5 kg (184 lb) Previous weights: 02/16/20: 180 lbs 02/11/20: 179 lbs Weight slightly decreased this week. Subjective: Patient contacted via telephone for appointment today, per request. Stated I haven't felt like there is much change in my jaw opening since last time [02/22] and I'm not having difficulty with swallowing, it's more taste and tolerating things that I can't really taste. Patient was able to complete GTQ [[place] Trismus Questionnaire] prior to leaving [facility] today, with changes from initial administration as follows; 1 = no issue to 5 = severe issue: Facial pain (2/5) Difficulties with opening mouth wide or taking large bite (5/5) Problems yawning: (5/5) Objective: Pain: 3-4/10 (with ibuprofen) Respiratory Status: Room air Current Diet: Tolerating Level 7/Xfly-co-rlrp solids, Level 0 Thin liquids Feeding / Oral Care Status: Pt is independent Using biotene frequently, reports oral care routine is going well and able to describe in detail Oral / Laryngeal Mechanism Clinical Assessment: Unable due to telephone appointment, patient denieschanges per interview VAS [Visual Analog Scale for Swallowing Function] 10/10 (no difficulties) Trismus: REYNA: No change reported ?? Previous measure (02/22) at 31.75 mm Trismus Severity - Mild (30-34 mm) (Jesus et al, 2006) Current patient reported measure at 31.75 mm [1.25 in] Assessment: Pt assessed via telephone today (per pt request) for a follow-up HIGH PRESSURE FIRER visit, motivational interviewing for routine management with prophylactic swallowing exercise(s), oral care, trismus monitoring. Patient demonstrated comprehension with all recommendations regarding his treatment plan to adhere to prophylactic swallowing exercises during his chemo/RT. Patient continues to be appropriate candidate for trismus intervention once chemo/RT has been completed given continued motivation. Education provided re: rationale for continuing prophylactic swallowing exercises despite no issueswith swallowing at this time; pt expressed comprehension. Patient also confirms he has received email from HIGH PRESSURE FIRER outlining what to expect during and after chemo/RT. Pt will benefit from continued therapeutic interventions to achieve therapy goals. Diagnosis: right tonsil squamous cell carcinoma, oropharyngeal dysphagia Recommendations: Diet: Continue Level 6/7 solids, Level 0 thin liquids as tolerated PO medications: whole with sip of liquid Risk Management: Upright position during meals and for at least 30 mins following Sensory enhancement (flavor, texture, temperature): Small sips and bites while eating Slow rate; swallow between bites Recommend subsequent telehealth session to be scheduled in 4 weeks; earlier if symptoms become worse. Speech [...] as deemed necessary. Plan: Subsequent session in 4 weeks to address continued trismus education, intervention for direct treatment planning/implementation, review of additional strategies to aid in swallowing/speech abilities and support quality of life. Please feel free to contact me with any questions or concerns regarding Mr. Pickering's care. Carrie Jacob MA CCC-HIGH PRESSURE FIRER Speech-Language Pathologist [email or web address] documented in this encounter Plan of Treatment Upcoming Encounters Date Type Department Care Team (Late st Contact Info) Description 05/31/2024 11:30 AM EST Office Visit Hematology/Oncolog y at [address] [phone] Tej Tipton MD [address] [facility] HEMATOLOGY & [place] [address] Stacy Valle APRN [facility] [place] [address] 06/01/2024 10:30 AM EST Scheduled View Only [place] [phone] 06/01/2024 11:00 AM EST Office Visit [place] [phone] Luis E Chin MD [facility] [place] [address] 06/04/2024 8:30 AM EST Hospital Encounter [place] [phone] Rayshawn Suresh MD [facility] [place] [address] 06/04/2024 8:30 AM EST - 06/04/2024 1:05 PM EST Surgery [place] [phone] Rayshawn Suresh MD [facility] [place] [address] @THORACOSCOPY, SURG; W PLEURODESIS (WRVU 10.83) Scheduled [...] tonsil documented in this encounter Care Teams Shopper'S Aide Relationship Specialty Start Date End Date Tiny Walters APRN [address] [place] [phone] PCP - General Family Medicine 12/01/19 04/07/24 documented as of this encounter
--- OUTSIDE RECORDS SUMMARY | 2024-05-31 01:27 | XMS_ITS | Encounter Summary ---
Author Organization [facility] Address [facility] [place] [address] Care Team Providers Care Board Lining Machine Operator Name Role Phone Tiny Walters APRN Primary Care Provider [phone]- [phone] Encounter Details Date Type Department Care Team (Late st Contact Info) Description 03/06/2020 Notes Only Hematology/Oncology at [address] [phone] Social History [...] Progress Notes * Tonya Machado RD - 03/06/2020 12:31 PM EST FEEDING TUBE ORDERS Patient name: Zen Moss Raheel : 1980 Diagnosis: Tonsil Cancer Ht/Weight: Wt Readings from Last 3 Encounters: 03/06/20 80.6 kg (177 lb 12.8 oz) 03/03/20 82.1 kg (181 lb) 03/01/20 83.5 kg (184 lb) Estimated body mass index is 27.84 kg/m?? as calculated from the following: Height as of an earlier encounter on 03/06/20: 170.2 cm (5' 7.01). Weight as of an earlier encounter on 03/06/20: 80.6 kg (177 lb 12.8 oz). Estimated Kcal: 2998-9031 kcal (30-35 kcal/kg) Estimated Protein needs: 120 gm/day (1.5 g/kg) Estimated Fluid needs: 2.5 L/day Goal : 7 cans/day Method of Feeding: Bolus (B4034) Recommend 7 cans of Nutren 1.5 via G-tube/day to provide 2625 kcal, 119 gm of protein and 1337 mLs of free water. Patient requires 1200 mLs or 40 ounces water/day as water flushes. Patient needs TF for > 90 days. Pt will need 11 refills. Pt needs syringes, flexi-traks. Pt DOES NOT need VNA services at this time. Medical Supply Co. : [employer]: Home Care Co.: [employer]: Doctor/BUSINESS MANAGEMENT PROFESSOR: (printed name) Signature: Dietitian: Tonya Machado RD Phone: [facility] [place] documented in this encounter Plan of Treatment Upcoming Encounters Date Type Department Care Team (Late st Contact Info) Description 05/31/2024 11:30 AM EST Office Visit Hematology/Oncolog y at [address] [phone] Tej Tipton MD [address] [facility] HEMATOLOGY & ONCOLOGY [place], [place] [phone] Stacy Valle APRN [facility] [place] [address] 06/01/2024 10:30 AM EST Scheduled View [place] [address] 06/01/2024 11:00 AM EST Office [place] [address] Luis E Chin MD [facility] [place] [address] 06/04/2024 8:30 AM EST Hospital Encounter [place] [address] Rayshawn Suresh MD [facility] [place] [address] 06/04/2024 8:30 AM EST - 06/04/2024 1:05 PM EST Surgery [place] [address] Rayshawn Suresh MD [facility] [place] [address] @THORACOSCOPY, SURG; W PLEURODESIS (WRVU 10.83) Scheduled [...] on filedocumented in this encounter Care Teams Board Lining Machine Operator Relationship Specialty Start Date End Date Tiny Walters APRN [address] [place] [phone] PCP - General Family Medicine 12/01/19 04/07/24 documented as of this encounter
--- OUTSIDE RECORDS SUMMARY | 2024-05-31 01:27 | XMS_ITS | Encounter Summary ---
Author Organization [facility] Address [facility] [place] [address] Care Team Providers Care Maintenance Manager Name Role Phone Tiny Walters APRN Primary Care Provider [phone]- [phone] Reason for Referral * Diagnostic Test (Routine) - Closed Specialty Diagnoses / Procedures Referred By Contac t Referred To Contact Radiology Diagnoses Tonsil cancer Procedures IR Suture Release Husam Avilez MD [facility] [place] [address] [facility] [place] [address] Referral ID Status Reason Start Date Expiration Date V isits Requested Visits Authorized [id number] Closed Specialty Service Requested 02/11/2020 08/11/2021 1 1 * Diagnostic Test (Routine) - Closed Specialty Diagnoses / Procedures Referred By Contac t Referred To Contact Radiology Diagnoses Tonsil cancer Procedures IR G-Tube Placement Gume Christy MD [facility] [place] [address] [facility] [place] [address] Referral ID Status Reason Start Date Expiration Date V isits Requested Visits Authorized [id number] Closed Specialty Service Requested 02/11/2020 04/27/2020 1 1 * Diagnostic Test (Routine) - Closed Specialty Diagnoses / Procedures Referred By Fritz lanier Referred To Contact Radiology Diagnoses Tonsil cancer Procedures IR Mediport Placement Gume Christy MD [facility] [place] [address] [facility] [place] [address] Referral ID Status Reason Start Date Expiration Date V isits Requested Visits Authorized [id number] Closed Specialty Service Requested 02/11/2020 04/27/2020 1 1 Reason for Visit * Auth/Cert Specialty Diagnoses / Procedures Referred By Fritz lanier Referred To Contact Diagnoses Tonsil cancer Procedures VENOUS ACCESS PLACEMENT PERCUTANEOUS GASTROSTOMY Referral ID Status Reason Start Date Expiration Date Visits Re quested Visits Authorized [id number] 1 1 Encounter Details Date Type Department Care Team (Latest Contact Info) Description 02/11/2020 12:50 PM EDT - 02/11/2020 11:59 PM EDT Hospital [place] [address] Gume Christy MD [address] [place] [address] [place] [address] Tonsil cancer Discharge Disposition: Home Social History [...] as needed for Wheezing. Use with spacer diphenhydrAMINE (Benadryl) 25 mg Capsule Take 25 mg by mouth every 6 hours as needed for Itching. 07/20/2020 prochlorperazine (Compazine) 10 mg TabletIndications:Tonsi l cancer Take 1 tablet by mouth every 6 hours as needed for Nausea. 30 tablet 3 01/24/2020 07/20/2020 venlafaxine XR (Effexor-XR) 75 mg Capsule, Sust. Release 24 hr TAKE ONE CAPSULE BY MOUTH EVERY DAY 12/14/2019 05/29/2020 loratadine (Claritin) 10 mg Tablet Take 10 mg by mouth daily as needed for Allergies. 07/20/2020 acetaminophen (Tylenol) 500 mg Tablet Take 1,000 mg by mouth every 6 hours as needed for Pain. 05/01/2020 documented as of this encounter H&P Notes * Huey Monroy MD - 02/10/2020 3:37 PM EDT Images from the original note were not included. INTERVENTIONAL RADIOLOGY FOCUSED H&P and PRE-PROCEDURE NOTE: PCP: Tiny Xiong APRN Referring Provider: Gume Christy Planned Procedure: Planned procedure: Mediport placement, Percutaneous gastrostromy tube placement Procedure Indication: assisted durable venous access for chemotherapy administration. Starting radiation for head and neck cancer, anticipate severe mucositis Order Questions Answers Where will study be performed? [facility] Radiology [120] Is the patient on anticoagulant / anitplatelet therapy ? No Reason for exam and clinical history: need for chemo access. Exam/Procedure requested: single-lumen Mediport Does patient require sedation? None Presenting Diagnosis/ Complaint: Zen Pickering is a 39 y.o. male with newly diagnosed tonsillar SCCa. Pt is starting chemoradiation and requires snf durable venous access for chemotherapy as well as a gastrostomy tube for expected severe mucositis. IR requested to place mediport catheter and percutaneous G-tube. Procedure to be performed under GA. PMH, PSH, Medications, Outpatient Prescriptions, Allergies, Social History and Family History beloware obtained as per patient's medical record. Past Medical/Surgical History: Patient Active Problem List Diagnosis Code ??? 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 Raynaud's syndrome I73.00 Past Medical History: Diagnosis Date ??? Asthma ??? Raynaud's disease ??? Tonsil cancer Past Surgical History: Procedure Laterality Date ??? PRO LARYNGOSCOPY, DIRCT, OP SCOPE, BIOPSY Bilateral 01/05/2020 LARYNGOSCOPY, MICROSCOPE, WITH BIOPSY (WRVU 3.55) performed by Yrn Banuelos MD at [facility] MAIN OR ??? PRO REMOVAL OF TONSILS, 12+ Y/O Left 01/28/2020 TONSILLECTOMY AGE 12 AND OVER (WRVU 3.45) performed by Yrn Banuelos MD at [facility] MAIN OR Outpatient Medications: Current Outpatient Medications on File Prior to Encounter Medication Sig Dispense Refill ??? oxyCODONE (Roxicodone) 5 mg/5 mL Solution Take 5 mLs by mouth every 8 hours as needed for Pain.200 mL 0 ??? oxyCODONE (Roxicodone) 5 mg/5 mL Solution Take 5-10 mLs by mouth every 4 hours as needed for Pain. 200 mL 0 ??? amLODIPine-benazepril (LOTREL) 5-10 mg Capsule Take [...] TAKE ONE CAPSULE BY MOUTH EVERY DAY ??? loratadine (Claritin) 10 mg Tablet Take 10 mg by mouth daily as needed for Allergies. ??? acetaminophen (Tylenol) 500 mg Tablet Take 1,000 mg by mouth every 6 hours as needed for Pain. ??? albuteroL 90 mcg/actuation HFA Aerosol Inhaler Inhale 2 puffs into the lungs every 4 hours as needed for Wheezing. Use with spacer No current facility-administered medications on file prior to encounter. Allergies: Patient has no known allergies. Social History and Habits: Social History Socioeconomic History ??? Marital status: Spouse name: Not on file ??? Number of children: Not on file ??? Years of education: Not on file ??? Highest education level: Not on file Occupational History ??? Not on file Social Needs ??? Financial resource strain: Not on file ??? Food insecurity Worry: Not on file Inability: Not on file ??? Transportation needs Medical: Not on file Non-medical: Not on file Tobacco Use ??? Smoking status: Never Smoker ??? Smokeless tobacco: Never Used Substance and Sexual Activity ??? Alcohol use: Yes Alcohol/week: 1.0 standard drinks Types: 1 Cans of beer per week Frequency: 2-4 times a month Drinks per session: 1 or 2 ??? Drug use: Never ??? Sexual activity: Not on file Lifestyle ??? Physical activity Days per week: Not on file Minutes per session: Not on file ??? Stress: Not on file Relationships ??? Social connections Talks on phone: Not on file Gets together: Not on file Attends restoration service: Not on file Active member of club or organization: Not on file Attends meetings of clubs or organizations: Not on file Relationship status: Not on file ??? Intimate partner violence Fear of current or ex partner: Not on file Emotionally abused: Not on file Physically abused: Not on file Forced sexual activity: Not on file Other Topics Concern ??? Not on file Social History Narrative . Three children, Twins (boy and girl 9 years old) , two year old female. 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 Pertinent ROS: as per HPI Labs: No results for input(s): WBC, HGB, HCT, PLATELET in the last 720 hours. No results for input(s): INR, PT, PTT in the last 720 hours. No results for input(s): NA, K, CL, CO2, BUN, CREATININE in the last 720 hours. Invalid input(s): EGFR No results for input(s): BILITOT, BILIDIR, AST, ALT, ALKPHOS in the last 720 hours. Imaging: PET/CT 01/11/20 Physical Exam: Pending (to be performed in angio the day of procedure) ASA: Pending (to be assessed in angio the day of procedure) Mallampati Class: Pending (to be assessed in angio the day of procedure) Assessment: Zen Pickering is a 39 y.o. male with newly diagnosed tonsillar SCCa. Pt is starting chemoradiation and requires snf durable venous access for chemotherapy as well as a gastrostomy tube for expected severe mucositis. IR requested to place mediport catheter and percutaneous G-tube.Procedure to be performed under GA. Plan: Plan Planned procedure: Mediport placement, Percutaneous gastrostromy tube placement Labs to be performed day of procedure: PLT, INR Sedation: Anesthesia Prophylactic antibiotic : Ancef Contrast: Omnipaque Additional medications for procedure: Lidocaine Medications to discontinue (and days held): None Planned access site: R/L IJ, epigastric area Position: Supine Cytopathology presence needed: No Consent: Pending Huey Monroy MD 02/10/2020 3:50 PM documented in this encounter Miscellaneous Notes * Brief Op Note - Husam Avilez - 02/11/2020 3:12 PM EDT INTERVENTIONAL RADIOLOGY BRIEF PROCEDURE NOTE Patient Name: Zen Pickering : 1980 Case Date: 02/11/2020 Operators: Attending: tashia Resident/Fellow/Student: corey Post-operative diagnosis/Indication: oropharyngeal cancer Name of Procedure Performed: Planned procedure: Mediport placement, Percutaneous gastrostromy tube placement Brief description of the procedure: ?? 8Fr low profile single lumen mediport placement with RIJ access. Tip in right atrium ?? 16Fr balloon retained gastrostomy catheter placement. Tip in stomach. Findings of the procedure: ?? As above EBL: <10 mL Specimens: _N/A_ Complications: No immediate Plan/Disposition: To home when meets discharge criteria from same day surgery FULL PROCEDURE NOTE TO FOLLOW IN IMAGE REPORT documented in this encounter Plan of Treatment Upcoming Encounters Date Type Department Care Team (Late st Contact Info) Description 05/31/2024 11:30 AM EST Office Visit Hematology/Oncolog y at [address] [phone] Tej Tipton MD [facility] HEMATOLOGY & ON[place]OGY [place], [place] [phone] Stacy Valle APRN [facility] [place] [address] 06/01/2024 10:30 AM EST Scheduled View Only Radiation Oncology at [place] [phone] 06/01/2024 11:00 AM EST Office [place] [phone] Luis E Chin MD [facility] [place] [address] 06/04/2024 8:30 AM EST Hospital Encounter Main [place] [phone] Rayshawn Suresh MD [facility] [place] [address] 06/04/2024 8:30 AM EST - 06/04/2024 1:05 PM EST Surgery [place] [phone] Rayshawn Suresh MD [facility] [place] [address] @THORACOSCOPY, SURG; W PLEURODESIS (WRVU 10.83) Scheduled Orders Name Type Priority Associated Diagnoses Orde r Schedule IR Suture Release Imaging Routine Tonsil cancer Expected: 02/18/2020, Expires: 08/19/2020 Scheduled Procedures Name Priority Associated Diagnoses Date/Ti [...] Priority Date/Time Associated Diagnosis Comments IR MEDIPORT PLACEMENT Routine 02/11/2020 3:17 PM EDT Tonsil cancer IR G-TUBE PLACEMENT Routine 02/11/2020 3 :17 PM EDT Tonsil cancer documented in this encounter Results * IR G-Tube Placement (02/11/2020 3:17 PM EDT) Anatomical Region Laterality Modality Chest X-Ray Angiograph y Narrative 02/14/2020 4:23 PM EDT IR PROCEDURE NOTE ?? Procedure: Right IJ mediport placement Gastrostomy tube placement ?? Indication for Procedure: Per history by Zen Rizo??is a 39 y.o.??male??with newly diagnosed tonsillar SCCa. Pt is starting chemoradiation and requires snf durable venous access for chemotherapy as well as a gastrostomy tube for expected severe mucositis. IR requested to place mediport catheter and percutaneous G-tube. Procedure to be performed under GA. ?? Procedure events and findings: After discussing risks (including infection and hemorrhage) and benefits, patient consented to the procedure. Airway management, sedation, and hemodynamic monitoring of vital signs was provided by the Anesthesia service. Please see the separate Anesthesia record for details. Patient was positioned supine on the procedure table under Anesthesia. Right neck base, upper chest and epigastrium were prepped and draped, maximum sterile barrier technique used throughout the procedures. Prophylactic antibiotic ancef 2g IV was administered. An orogastric tube was placed by Anesthesiology with tip in the stomach. ?? Left IJ mediport placement: Local anesthesia provided with 1% lidocaine. ??Right IJ/brachiocephalic junction was accessed with micropuncture technique under U/S guidance and a 4Fr sheath placed. ??After additional local anesthetic with 1% lidocaine and 1% lidocaine with epinephrine, a transverse skin incision was made and a port pocket created with blunt dissection in the upper chest. ?? Single lumen low profile CT injection compatible port was connected to the port catheter. ??The port catheter (8Fr) was tunneled from the port pocket to the neck entry site and the port positioned in the port pocket. The guide wire was used to measure the amount of catheter to be placed. ??Catheter cut to length. ??The 4Fr sheath was exchanged for a peel-away sheath and the port catheter placed via the peel-away with catheter tip positioned in RA under fluoroscopic guidance. ??Port was accessed and aspirated and flushed readily. ??The port was then loaded with heparin solution. ?? The neck incision was closed with tissue adhesive. ??The pocket incision was closed with interrupted deep 2-0 resorbable suture, superficial 4-0 resorbable suture and tissue adhesive. ? Gastrostomy tube placement: The epigastrium was prepared in sterile fashion after U/S to determine the left lateral and caudal??extent of the liver. Maximum sterile barrier technique was used throughout. ??Orogastric tube was??used for insufflation of the stomach. ? The skin over the stomach was infiltrated with 1% lidocaine for local anesthesia. ??An 18 ga needle was advanced under fluoroscopic guidance into the stomach with return of air and contrast injection showing gastric folds. ??A T anchor was deployed. ??Two additional T anchors were placed in the same manner. ??In the triangle formed by the T anchors, a skin incision was made through which an 18ga needle was directed into the gastric lumen, confirmed with aspiration and contrast injection. ? Over an 0.035? ??guidewire, the tract was dilated to 20 Maltese and a 20 Maltese peel-away sheath was placed. ??A 16 Maltese balloon retained gastrostomy tube was placed via the peel-away sheath. ??The retention balloon of the gastrostomy tube was filled with 5 cc of sterile water and contrast injection via the gastrostomy tube??confirmed location within the gastric lumen. ?? Medications: 1% Lidocaine 10ccs subcutaneous, 1% lidocaine with epinephrine <20cc subcutaneous. See Anesthesia record for additional medications. ?Antibiotic Prophylaxis: ancef 2 grams IV ? Contrast: ??15 cc. Omni 350. Fluoro: 0.4 minutes ?? Est Blood Loss: <5cc. ?? Complications: ??No immediate ?? Impression: ?? 1. Placement of single lumen CT injection compatible mediport via right IJ with catheter tip in right atrium, ready for use. ?? 2. Placement of 16Fr balloon retained gastrostomy tube, ready for use. ?? 3. T anchors to be released in 7-10 days. ?? Resident/Fellow: ??Husam Avilez MD ?? Attending: Dr. Choi. ??I, Dr. Choi was present throughout this procedure. ?? Gume Christy MD IMG IR ORDERABLES * IR Mediport Placement (02/11/2020 3:17 PM EDT) Anatomical Region Laterality Modality X-Ray Angiograph y Narrative 02/12/2020 10:18 AM EDT IR PROCEDURE NOTE Procedure: Right IJ mediport placement Gastrostomy tube placement Indication for Procedure: Per history by Dr. Monroy, Zen Pickering is a 39 y.o. male with newly diagnosed tonsillar SCCa. 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 IR requested to place mediport catheter and percutaneous G-tube. Procedure to be performed under GA. Procedure events and findings: After discussing risks (including infection and hemorrhage) and benefits, patient consented to the procedure. Airway management, sedation, and hemodynamic monitoring of vital signs was provided by the Anesthesia service. Please see the separate Anesthesia record for details. Patient was positioned supine on the procedure table under Anesthesia. Right neck base, upper chest and epigastrium were prepped and draped, maximum sterile barrier technique used throughout the procedures. Prophylactic antibiotic ancef 2g IV was administered. An orogastric tube was placed by Anesthesiology with tip in the stomach. ?? Left IJ mediport placement: Local anesthesia provided with 1% lidocaine. ??Right IJ/brachiocephalic junction was accessed with micropuncture technique under U/S guidance and a 4Fr sheath placed. ??After additional local anesthetic with 1% lidocaine and 1% lidocaine with epinephrine, a transverse skin incision was made and a port pocket created with blunt dissection in the upper chest. ?? Single lumen low profile CT injection compatible port was connected to the port catheter. ??The port catheter (8Fr) was tunneled from the port pocket to the neck entry site and the port positioned in the port pocket. The guide wire was used to measure the amount of catheter to be placed. ?? Catheter cut to length. ??The 4Fr sheath was exchanged for a peel-away sheath and the port catheter placed via the peel-away with catheter tip positioned in RA under fluoroscopic guidance. ??Port was accessed and aspirated and flushed readily. ??The port was then loaded with heparin solution. ?? The neck incision was closed with tissue adhesive. ??The pocket incision was closed with interrupted deep 2-0 resorbable suture, superficial 4-0 resorbable suture and tissue adhesive. ? Gastrostomy tube placement: The epigastrium was prepared in sterile fashion after U/S to determine the left lateral and caudal??extent of the liver. Maximum sterile barrier technique was used throughout. ??Orogastric tube was??used for insufflation of the stomach. ?? The skin over the stomach was infiltrated with 1% lidocaine for local anesthesia. ??An 18 ga needle was advanced under fluoroscopic guidance into the stomach with return of air and contrast injection showing gastric folds. ??A T anchor was deployed. ??Two additional T anchors were placed in the same manner. ??In the triangle formed by the T anchors, a skin incision was made through which an 18ga needle was directed into the gastric lumen, confirmed with aspiration and contrast injection. ? Over an 0.035? ??guidewire, the tract was dilated to 20 Maltese and a 20 Maltese peel-away sheath was placed. ??A 16 Maltese balloon retained gastrostomy tube was placed via the peel-away sheath. ??The retention balloon of the gastrostomy tube was filled with 5 cc of sterile water and contrast injection via the gastrostomy tube??confirmed location within the gastric lumen. Medications: 1% Lidocaine 10ccs subcutaneous, 1% lidocaine with epinephrine <20cc subcutaneous. See Anesthesia record for additional medications. ??Antibiotic Prophylaxis: ancef 2 grams IV ? Contrast: ??15 cc. Omni 350. Fluoro: 0.4 minutes Est Blood Loss: <5cc. Complications: ??No immediate Impression: 1. Placement of single lumen CT injection compatible mediport via right IJ with catheter tip in right atrium, ready for use. ?? 2. Placement of 16Fr balloon retained gastrostomy tube, ready for use. ?? 3. T anchors to be released in 7-10 days. Resident/Fellow: ??Husam Avilez MD Attending: Dr. Choi. ??I, Dr. Choi was present throughout this procedure. ?? Gume Christy MD IMG IR ORDERABLES documented in this encounter Visit Diagnoses Diagnosis Tonsil cancer Malignant neoplasm of tonsil documented in this encounter Administered Medications Inactive Administered Medications - up to 3 most recent administrations Medication Order MAR Action Action Date Dose Rate Site iohexoL (Omnipaque) 350 mg/mL solution 50 mL 50 mL, Other, ONCE PRN, 1 dose, Starting on Fri02/11/20 at 1518, Until Fri02/11/20 at 1518, Per Protocol, Warning Vesicant/Irritant Medication , Routine Given 02/11/2020 3:18 PM EDT 15 mLs documented in this encounter Care Teams Maintenance Manager Relationship Specialty Start Date End Date Tiny Walters, ROASTER OPERATOR [address] [place] [phone] PCP - General Family Medicine 12/01/19 04/07/24 documented as of this encounter
--- OUTSIDE RECORDS SUMMARY | 2024-05-31 01:27 | XMS_ITS | Encounter Summary ---
Author Organization [facility] Address [facility] [place] [address] Care Team Providers Care Court Transcriber Name Role Phone Tiny Walters APRN Primary Care Provider +1- [phone] Reason for Visit * Reason Comments IV Access Port access for SIM Encounter Details Date Type Department Care Team (Late Contact Info) Description 02/16/2020 8:00 AM EDT Infusion Hematology Oncology at [address] [phone] Tonsil cancer Social History Tobacco [...] as of this encounter Progress Notes * Margie Page RN - 02/16/2020 8:00 AM EDT INFUSION THERAPY ADMINISTRATION NOTES DIAGNOSIS: Tonsil cancer REASON FOR VISIT: MEDIPORT ACCESSED FOR SIM & FLUSHED IV ACCESS: Mediport GAUGE: 19G BLOOD RETURN: [...] EST Office Visit Hematology/Oncolog y at [address] [address] Tej Tipton MD [address] [facility] HEMATOLOGY & [place] [address] Stacy Valle APRN [facility] [place] [address] 06/01/2024 10:30 AM EST Scheduled View [place] [address] 06/01/2024 11:00 AM EST Office [place] [phone] Luis E Chin MD [facility] [place] [address] 06/04/2024 8:30 AM EST Hospital Encounter [place] [address] Rayshawn Suresh MD [facility] [place] [address] 06/04/2024 8:30 AM EST - 06/04/2024 1:05 PM EST Surgery [place] [address] Rayshawn Suresh MD [facility] [place] [address] @THORACOSCOPY, SURG; W PLEURODESIS (WRVU 10.83) Scheduled [...] tonsil documented in this encounter Care Teams Court Transcriber Relationship Specialty Start Date End Date Tiny Walters APRN [address] [place] [phone] PCP - General Family Medicine 12/01/19 04/07/24 documented as of this encounter
--- OUTSIDE RECORDS SUMMARY | 2024-05-31 01:27 | XMS_ITS | Encounter Summary ---
Author Organization [facility] Address [facility] [place] [address] Care Team Providers Care Instrument Inspector Name Role Phone Tiny Walters APRN Primary Care Provider +1- [phone] Reason for Visit * Auth/Cert Specialty Diagnoses / Procedures Referred By Fritz lanier Referred To Contact Diagnoses Tonsil cancer Procedures VENOUS ACCESS PLACEMENT PERCUTANEOUS GASTROSTOMY Referral ID Status Reason Start Date Expiration Date Visits Re quested Visits Authorized [id number] 1 1 Encounter Details Date Type Department Care Team (Late st Contact Info) Description 02/11/2020 9:30 AM EDT Office Visit [place] [address] Mehran Lewis PA [facility] [place] [address] Tonsil cancer; S/P tonsillectomy; Postoperative examination Social History Tobacco Use Types Packs/Day Years [...] - Inhaled Oxygen Concentration - - Weight 81.2 kg (179 lb) 02/11/2020 9:21 AM EDT Height 170.2 cm (5' 7) 02/11/2020 9:21 AM EDT Body Mass Index 28.04 02/11/2020 9:21 AM EDT documented in this encounter Progress Notes * Mehran Lewis PA - 02/11/2020 9:30 AM EDT [facility] FOLLOW UP NOTE Zen Pickering is a 39 y.o. 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 Airway status: OPHELIA but no other airway concerns. New issues since last visit: None Is able to eat soft foods without problem Pain well controlled 1 episode of scant bleeding after coughing, but symptoms resolved quickly and have no returned Focused ROS: Fevers, chillls, unexplained fatigue: No Nausea/vomiting: No Cough/choking: No Dyspnea: No Incisional drainage, edema, erythema: No Pain: Controlled well PROBLEM LIST Patient Active Problem List Diagnosis Code ??? 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 Raynaud's syndrome I73.00 PAST MEDICAL HISTORY Past Medical History: Diagnosis Date ??? Asthma ??? Raynaud's disease ??? Tonsil cancer SOCIAL HISTORY Social History Tobacco Use ??? Smoking status: Never Smoker ??? Smokeless tobacco: Never Used Substance Use Topics ??? Alcohol use: Yes Alcohol/week: 1.0 standard drinks Types: 1 Cans of beer per week Frequency: 2-4 times a month Drinks per session: 1 or 2 MEDICATIONS Current Outpatient Medications on File Prior to Visit Medication Sig Dispense Refill ??? amLODIPine-benazepril (LOTREL) 5-10 mg Capsule Take 1 capsule by mouth daily as needed. ??? diphenhydrAMINE (Benadryl) 25 mg Capsule Take 25 mg by mouth every 6 hours as needed for Itching. ??? venlafaxine XR (Effexor-XR) 75 mg Capsule, [...] as needed for Wheezing. Use with spacer ??? oxyCODONE (Roxicodone) 5 mg/5 mL Solution Take 5 mLs by mouth every 8 hours as needed for Pain.(Patient not taking: Reported on 02/11/2020) 200 mL 0 ??? oxyCODONE (Roxicodone) 5 mg/5 mL Solution Take 5-10 mLs by mouth every 4 hours as needed for Pain. (Patient not taking: Reported on 02/11/2020) 200 mL 0 ??? prochlorperazine (Compazine) 10 mg Tablet Take 1 tablet by mouth every 6 hours as needed for Nausea. (Patient not taking: Reported on 02/11/2020) 30 tablet 3 No current facility-administered medications on file prior to visit. ALLERGIES No Known Allergies ROS 8 point Review of Systems was normal except for pertinent positives and negatives included in the History of Present Illness. PHYSICAL EXAMINATION VITALS - Height 170.2 cm (5' 7), weight 81.2 kg (179 lb). GENERAL - Well dressed and well nourished. - Breathing comfortably without stridor. - No acute distress. FACE - Full and symmetric facial movement. - No dysmorphic facial features. EYES - Periocular structures and conjunctiva healthy without lesions. EARS Left: Auricle normal exam. Right: Auricle normal exam. NOSE - Grossly patent anteriorly. MOUTH - Lips and gingiva pink, moist, without lesions. - [place] teeth extraction sites without bleeding, discharge or food impaction - Tongue and floor of mouth soft without lesions or masses. - Hard palate without lesions. PHARYNX - Soft palate without lesions. - Uvula is midline. - Right tonsillar enlargement. - Left tonsil excision appears well healed with scant scar tissue. No evidence of bleeding, discharge or dehiscence NECK - Soft, supple, without significant lymphadenopathy. - Thyroid gland without masses or asymmetry. - Trachea midline without deviation. LUNGS - Clear to auscultation bilaterally without wheezes. HEART - Regular rate and rhythm without murmur. NEURO - Cranial nerves II-XII intact and symmetric. PSYCHE - Normal mood and affect. Lab Surgical Pathology DIAGNOSIS Left tonsil, excision: - Reactive follicular lymphoid hyperplasia. - Actinomyces colonization. - There is no evidence of malignancy. Electronically signed by: ??MD Samantha, Ruel Aquino Verified: ??02/03/2020 ?Pathologist Performed at: ??-[facility] 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 Doing well with no concerns or questions Will follow up with Rad Onc as previously scheduled documented in this encounter Plan of Treatment Upcoming Encounters Date Type Department Care Team (Late st Contact Info) Description 05/31/2024 11:30 AM EST Office Visit Hematology/Oncolog y at [address] [phone] Tej Tipton MD [address] [facility] HEMATOLOGY & [place] [address] Stacy Valle APRN [facility] [place] [address] 06/01/2024 10:30 AM EST Scheduled View Only [place] [address] 06/01/2024 11:00 AM EST Office Visit [place] [address] Luis E Chin MD [facility] DR [place] [address] 06/04/2024 8:30 AM EST Hospital Encounter [place] [phone] Rayshawn Suresh MD [facility] DR [place] [address] 06/04/2024 8:30 AM EST - 06/04/2024 1:05 PM EST Surgery Main Operating Room [facility] [place] [address] Rayshawn Suresh MD [facility] DR [place] [address] @THORACOSCOPY, SURG; W PLEURODESIS (WRVU 10.83) Scheduled [...] Diagnosis Tonsil cancer Malignant neoplasm of tonsil S/P tonsillectomy Other postprocedural status Postoperative examination Follow-up examination, following unspecified surgery documented in this encounter Care Teams Instrument Inspector Relationship Specialty Start Date End Date Tiny Walters APRN [address] [place] [phone] PCP - General Family Medicine 12/01/19 04/07/24 documented as of this encounter
--- OUTSIDE RECORDS SUMMARY | 2024-05-31 01:27 | XMS_ITS | Encounter Summary ---
[place] [address] Care Team Providers Care Rake Operator Name Role Phone Tiny Walters APRN Primary Care Provider +1- [phone] Reason for Visit * Auth/Cert Specialty Diagnoses / Procedures Referred By Fritz lanier Referred To Contact Diagnoses Tonsil cancer Procedures VENOUS ACCESS PLACEMENT PERCUTANEOUS GASTROSTOMY Referral ID Status Reason Start Date Expiration Date Visits Re quested Visits Authorized [id number] 1 1 Encounter Details Date Type Department Care Team (Late st Contact Info) Description 02/11/2020 12:50 PM EDT - 02/11/2020 2:50 [place] [phone] Donnie Lema MD [address] [place] [address], Level [address] [place] [address] VENOUS ACCESS PLACEMENT Social History Tobacco Use Types Packs/Day Years [...] Sign Reading Time Taken Comments Blood Pressure 128/72 02/11/2020 12:14 PM EDT Pulse 59 02/11/2020 12:14 PM EDT Temperature 36.8 ??C (98.2 ??F) 02/11/2020 12:14 PM E DT Respiratory Rate 16 02/11/2020 12:14 PM EDT Oxygen Saturation 100% 02/11/2020 12:14 PM EDT Inhaled Oxygen Concentration - - Weight - - Height - - Body Mass Index - - documented in this encounter Discharge Instructions * Discharge Instructions* Promise Lima RN - 02/11/2020 3:36 PM EDT Wound infection may occur at any time, but it is evident more often 4-7 days after surgery. Signs and symptoms may involve one or more of the followin. Temperature elevation of more than 2 degrees or greater than 100.5 degrees F 2. Swelling and redness in or around the incision. 3. Increasing pain or discomfort in or around the incision. 4. Red streaks in the skin near the incision. 5. Pus or other foul drainage from the incision. 6. Foul smell from the incision. 7. Generalized body chills or fever. 8. Severe pain. If you suspect an incisional infection is present, are having problems, or have additional questions or concerns, please call. documented in this encounter Medications at Time [...] Pain. 05/01/2020 documented as of this encounter Progress Notes * Promise iLma RN - 02/11/2020 5:05 PM EDT Patient alert and oriented, vital signs stable. Reviewed discharge instructions; patient and , verbalized understanding. Copy of instruction sheet with contact numbers for questions/concerns. Pain assessment documented. Patient escorted out of department via wheelchair. documented in this encounter Plan of Treatment Upcoming Encounters Date Type Department Care Team (Late st Contact Info) Description 05/31/2024 11:30 AM EST Office Visit Hematology/Oncolog y at [address] [address] Tej Tipton MD [address] [facility] DR HEMATOLOGY & [place] [address] Stacy Valle APRN [facility] [place] [address] 06/01/2024 10:30 AM EST Scheduled View [place] [address] 06/01/2024 11:00 AM EST Office [place] [phone] Luis E Chin MD [facility] DR [place] [address] 06/04/2024 8:30 AM EST Hospital Encounter [place] [phone] Rayshawn Suresh MD [facility] DR [place]AC[place] [address] 06/04/2024 8:30 AM EST - 06/04/2024 1:05 PM EST Surgery [place] [address] Rayshawn Suresh MD [facility] DR [place]AC[place] [address] @THORACOSCOPY, SURG; W PLEURODESIS (WRVU 10.83) Scheduled [...] Procedure Name Priority Date/Time Associated Diagnosis Comments PERCUTANEOUS GASTROSTOMY 020 1:28 PM EDT Tonsil cancer VENOUS ACCESS PLACEMENT 02/11/20 20 1:28 PM EDT Tonsil cancer documented in this encounter Visit Diagnoses Not on filedocumented in this encounter Administered Medications Inactive Administered Medications - up to 3 most recent administrations Medication Order MAR Action Action Date Dose Rate Site gadoterate meglumine (DOTAREM) 0.5 mmol/mL (376.9 mg/mL) injection 15.88 mL 15.88 mL (0.2 mL/kg/dose ? 79.4 kg), Intravenous, ONCE PRN, 1 dose, Starting on Fri02/11/20 at 1213, Until Fri02/11/20 at 1916, Per Protocol, Radiology Contrast, Routine lactated ringers infusion 1,000 mL, at 100 mL/hr, Intravenous, CONTINUOUS, Starting on Fri02/11/20 at 1230, Until Fri02/11/20 at 1715, Day of Surgery (Day of Procedure) New Bag 02/11/2020 12:39 PM EDT 1,000 mLs 100 mL/hr documented in this encounter Active and Recently Administered Medications Times are shown in EDT. Scheduled Medication Order 02/09/2020 02/10/2020 02/11/2020 ceFAZolin (Ancef) 2 g in dextrose 5% 100 mL infusion (COMPLETED) 2 g, Intravenous, ONCE, 1 dose, On Fri02/11/20 at 1230, Administer over 30 Minutes, Redose every 3 hours if CrCl is greater than 20. Redose every 8 hours if CrCl is less than 20., Angio/IR (Day of Procedure), Indication for (Active or Suspected): Prophylaxis 1400 (Given - Provid er: Jigar Robbnis CRNA) Continuous Medication Order 02/09/2020 02/10/2020 02/11/2020 lactated ringers infusion (CANCELED) 1,000 mL, at 100 mL/hr, Intravenous, CONTINUOUS, Starting on Fri02/11/20 at 1230, Until Fri02/11/20 at 1715, Day of Surgery (Day of Procedure) 1239 (New Bag - Prov ider: Elli Benson RN)1404 (Anesthesia Volume Adjustment - Provider: Jigar Robbins CRNA)1458 (Anesthesia Volume Adjustment - Provider: Jigar Robbins CRNA) PRN Medication Order 02/09/2020 02/10/2020 02/11/2020 gadoterate meglumine (DOTAREM) 0.5 mmol/mL (376.9 mg/mL) injection 15.88 mL 15.88 mL (0.2 mL/kg/dose ? 79.4 kg), Intravenous, ONCE PRN, 1 dose, Starting on Fri02/11/20 at 1213, Until Fri02/11/20 at 1916, Per Protocol, Radiology Contrast, Routine documented in this encounter Care Teams Rake Operator Relationship Specialty Start Date End Date Tiny Walters APRN [address] [place] [phone] PCP - General Family Medicine 12/01/19 04/07/24 documented as of this encounter
--- OUTSIDE RECORDS SUMMARY | 2024-05-31 01:27 | XMS_ITS | Encounter Summary ---
Author Organization [facility] Address [facility] [place] [address] Care Team Providers Care Tin Can Feeder Name Role Phone Tiny Walters APRN Primary Care Provider +1- [phone] Encounter Details Date Type Department Care Team (Late st Contact Info) Description 03/06/2020 1:00 PM EST Office Visit Hematology/Oncology at [address] [phone] Tonsil cancer [...] Notes * Tonya Machado RD - 03/06/2020 1:00 PM EST [facility] Dietitian Follow Up Seen By: Tonya Machado [...] Labs: reviewed Estimated body mass index is 27.84 kg/m?? [...] 179 lbs Weight slightly decreased this week. Wt Hx: UBW: % UBW: IBW: +/- 10% % IBW: ___ Edema ___ Ascites ___Muscle wasting Calories: 4305-4191 (30-35 kcal/kg) Protein: 120 grams (1.5 g/kg) Fluid: 2.5 L Nutrition Assessment: Enteral Nutrition: G-tube placed 02/10 by IR - 16 Lao balloon retained g-tube If unable to eat orally, recommend 7 cans of Nutren 1.5 via G-tube/day to provide 2625 kcal, 119 gmof protein and 1337 mLs of free water. Food Intake: Still eating normal diet, however, taste diminished. Experiencing noticeable hunger cues. Teas, vitamins, or other nutritional supplements: n/a Food allergies or avoidances: denies Appetite: good Nausea: mild Vomiting: n/a Chewing: denies difficulty Dentition: wisdom teeth removed recently Swallowing: denies difficulty Taste Changes: +bland Bowels: did not discuss Food availability/purchasing, meal planning and preparation: Social Support: accompanied by his ; 3 children at home Physical Activity: Anticipated adherence/understanding: good Nutrition Diagnosis: New g-tube placement in anticipation of starting treatment for recently diagnosed HN cancer. Nutrition Intervention: ? Increase caloric needs: discussed importance of/goal to maintain body weight throughout treatment ? Modify diet consistency: as tolaterated ? Enteral Nutrition: begin referral to [facility]; provided patient with additional supplies - flexi tracks, 60 ml syringes, liter graduated cylinder; discussed checking balloon fill volume every 2 weeks Monitoring and Evaluation: Will follow up weekly during treatment. documented in this encounter Plan of Treatment Upcoming Encounters Date Type Department Care Team (Late st Contact Info) Description 05/31/2024 11:30 AM EST Office Visit Hematology/Oncolog y at [address] [phone] Tej Tipton MD [address] [facility] [place]AT[place]Y [place] [address] Stacy Valle APRN [facility] [place] [address] 06/01/2024 10:30 AM EST Scheduled View [place] [phone] 06/01/2024 11:00 AM EST Office [place] [phone] Luis E Chin MD [facility] [place] [address] 06/04/2024 8:30 AM EST Hospital Encounter [place] [phone] Rayshawn Suresh MD [facility] [place] [address] 06/04/2024 8:30 AM EST - 06/04/2024 1:05 PM EST Surgery [place] [address] Rayshawn Suresh MD [facility] [place] [address] @THORACOSCOPY, SURG; W PLEURODESIS (WRVU 10.83) Scheduled [...] tonsil documented in this encounter Care Teams Tin Can Feeder Relationship Specialty Start Date End Date Tiny Walters, BATSHEVA [address] [place] [phone] PCP - General Family Medicine 12/01/19 04/07/24 documented as of this encounter
--- OUTSIDE RECORDS SUMMARY | 2024-05-31 01:27 | XMS_ITS | Encounter Summary ---
Author Organization [facility] Address [facility] [place] [address] Care Team Providers Care Preschool Assistant Teacher Name Role Phone Tiny Walters APRN Primary Care Provider +1- [phone] Reason for Visit * Reason Comments Chemotherapy Cycle 1, Day 15 - Ci splatin * Treatment/Therapy Plan Authorization (Routine) - Closed Specialty Diagnoses / Procedures Referred By Contac t Referred To Contact Diagnoses Tonsil cancer Dehydration Drug-induced nausea and vomiting Procedures TC PALONOSETRON HCL, 25MCG, INJECTION (ALOXI) TC APREPITANT, 1 MG, INJECTION TC CISPLATIN, POWDER OR SOLUTION, 10MG, INJECTION Gume Christy MD [address] [place] [address] [place] [address] [facility] Hem Onc Infusion [address] [place] [phone] Referral ID Status Reason Start Date Expiration Date Visits Re quested Visits Authorized [id number] Closed 01/24/2020 04/17/2021 30 0 Encounter Details Date Type Department Care Team (Late st Contact Info) Description 03/13/2020 11:00 AM EST Infusion Hematology Oncology at [address] [phone] Tonsil cancer Social History Tobacco [...] Notes * Sudeep, Diana C, RN - 03/13/2020 11:00 AM EST INFUSION THERAPY ADMINISTRATION NOTES DIAGNOSIS: Tonsillar cancer CYCLE #: Cycle 1, Day 15 - Cisplatin REASON FOR VISIT: To receive chemotherapy concurrent with radiation. SUBJECTIVE: Zen offers no complaints. OBJECTIVE: VSS. Seen by provider. Ready to treat. LAB DATA: WBC - 7.84, H/H - 13.0/37.3, Plt Ct - 322, ANC - 6.24, Lytes wnl, BUN/CR - 25/1.20, MG++ - 2.0 IV ACCESS: Port accessed without difficulty, flushes readily with brisk blood return. Pre administration: Chemotherapy orders independently verified for drug name, route, and dosage per patient's height, weight and BSA by Shirley Sheets RN and [facility]. REACTIONS (DESCRIPTION, TIME, INTERVENTION AND [...] EST Office Visit Hematology/Oncolog y at [address] [phone] Tej Tipton MD [address] [facility] [address] HEMATOLOGY [place] [address] Stacy Valle APRN [facility] [place] [address] 06/01/2024 10:30 AM EST Scheduled View [place] [address] 06/01/2024 11:00 AM EST Office [place] [phone] Luis E Chin MD [facility] [place] [address] 06/04/2024 8:30 AM EST Hospital Encounter [place] [phone] Rayshawn Suresh MD [facility] [place] [address] 06/04/2024 8:30 AM EST - 06/04/2024 1:05 PM EST Surgery [place] [phone] Rayshawn Suresh MD [facility] [place] [address] @THORACOSCOPY, SURG; W PLEURODESIS (WRVU 10.83) Scheduled [...] over 2 Minutes, ONCE, 1 dose, On 03/13/20 at 1130, Alternative administration of IV push over 2 minutes is a recommendation from the senior energy market coordinator. Administer prior to chemotherapy., Routine Given 03/13/2020 11:35 AM EST 130 mg CISplatin (Platinol) 79 mg in sodium chloride 0.9% 329 mL chemo infusion 79 mg (rounded from 79.2 mg = 40 mg/m2/dose ? 1.98 m2 Treatment Plan BSA from Recorded weight), Intravenous, ONCE, 1 dose, On Fri03/13/20 at 1215, Administer over 60 Minutes, Warning Vesicant/Irritant Medication New Bag 03/13/2020 12:22 PM EST 79 mg 329 mL/hr dexamethasone (Decadron) tablet 10 mg 10 mg, Oral, ONCE, 1 dose, On Fri03/13/20 at 1130, Administer prior to chemotherapy, Routine Given 03/13/2020 11:35 AM EST 10 mg heparin, porcine 100 unit/mL flush 500 Units 500 Units, Intravenous, ONCE PRN, Starting on Fri03/13/20 at 1100, Until Fri03/13/20 at 1610, Line Care, Refer to Intravenous (IV) Procedure: Accessing Implanted Vascular Access Devices (654) procedure and/or Intravenous (IV) Job Aid: Adult Flushing & Catheter Care (4605) job aid for additional information regarding guidelines and administration., Routine Given 03/13/2020 1:26 PM EST 500 Units palonosetron (ALOXI) injection 0.25 mg 0.25 mg, Intravenous, ONCE, 1 dose, On Fri03/13/20 at 1130, Administer over 30 seconds. Administer prior to chemotherapy, Routine Given 03/13/2020 11:35 AM EST 0.25 mg sodium chloride 0.9 % (flush) flush 5-20 mL 5-20 mL, Intravenous, EVERY 1 MIN PRN, Starting on Fri03/13/20 at 1100, Until Fri03/13/20 at 1610, Line Care, Flush pertains to all indwelling lines. Flush per protocol found in the job aid using the link provided on this medication record. Refer to Intravenous (IV) Job Aid: Adult Flushing & Catheter Care (6188) job aid for additional information regarding guidelines and administration., Routine Given 03/13/2020 1:26 PM EST 20 mLs sodium chloride 0.9% infusion 1,000 mL, at 1,000 mL/hr, Intravenous, CONTINUOUS, Starting on Fri03/13/20 at 1130, Until Fri03/13/20 at 1229, Pre-CISplatin New Bag 03/13/2020 11:05 AM EST 1,000 mLs 1000 mL/hr sodium chloride 0.9% infusion 500 mL, at 500 mL/hr, Intravenous, CONTINUOUS, Starting on Fri03/13/20 at 1315, Until Fri03/13/20 at 1414, Post CISplatin New Bag 03/13/2020 12:10 PM EST 500 mLs 500 mL/hr documented in this encounter Care Teams Preschool Assistant Teacher Relationship Specialty Start Date End Date Tiny Walters APRN [address] [place] [phone] PCP - General Family Medicine 12/01/19 04/07/24 documented as of this encounter
--- OUTSIDE RECORDS SUMMARY | 2024-05-31 01:27 | XMS_ITS | Encounter Summary ---
Author Organization [facility] Address [facility] [place] [address] Care Team Providers Care Supervisor Asbestos Removal Name Role Phone Tiny Walters APRN Primary Care Provider +1- [phone] Encounter Details Date Type Department Care Team (Late st Contact Info) Description 02/16/2020 Notes Only Radiation Oncology at [address] [phone] Alyse Kirk MSW OFFICE OF CARE MANAGEMENT [...] Progress Notes * Alyse Kirk MSW - 02/16/2020 10:32 AM EDT Reason for Referral: Brief assessment of social and emotional needs. Met with pt and after hissim today. Social Supports: Pt identified his primary support as his Janett of 11 years. They have 9 year old twins, a son and daughter and a 3 year old daughter. They identified pt's mother and 's mother as additional supports. They also indicated they have many friends who have offered to help. Living Situation/Daily Activities/Transportation: Pt and manage their daily chores and activities. They do not expect any issues with transportation. Their mothers will be available to help withchild care. home schools the twins so she is sorting out a new schedule to get everything done. 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 He does have a short term disability benefit. Pt indicated his place of work is very understanding and supportive. They indicated they are managing their financial obligations. They did get some financial assistance from the [employer]. Briefly reviewed other resources. Pt has BCBS for insurance. Advance Directives: Pt has not completed his advance directive. Gave him a copy f the [place] booklet/form to review and offered to assist if he is interested in completing the document. Utilization of Community Resources: [employer]. Adjustment to Illness/Mental Health Issues: Pt is expecting concurrent RT and chemotherapy. He indicated he is holding up as best he can. indicated the same. Now that they have a diagnosis all is happening fast. indicated she is good at asking questions. They stated the children are doingas well as they can given their age and understanding of the situation. They involvement in things that need to be done with pt. Their 9 year old daughter has challenges with anxiety and they find ithelpful to involve her in pt's care routine. Pt and feel well supported by family and friends.Offered support. Identified Needs: Pt and did not identify any specific needs at this time. Referrals: None at this time. Plan: Informed pt and of BEHAVIORAL SERVICES TECH availability and will follow for support and resources. documented in this encounter Plan of Treatment Upcoming Encounters Date Type Department Care Team (Late st Contact Info) Description 05/31/2024 11:30 AM EST Office Visit Hematology/Oncolog y at [address] [phone] Tej Tipton MD [address] [facility] HEMATOLOGY [place] [address] Stacy Valle APRN [facility] [place] [address] 06/01/2024 10:30 AM EST Scheduled View Only [place] [address] 06/01/2024 11:00 AM EST Office Visit [place] [address] Luis E Chin MD [facility] [place] [address] 06/04/2024 8:30 AM EST Hospital Encounter [place] [address] Rayshawn Suresh MD [facility] [place] [address] 06/04/2024 8:30 AM EST - 06/04/2024 1:05 PM EST Surgery [place] [address] Rayshawn Suresh MD [facility] [place] [address] @THORACOSCOPY, SURG; W PLEURODESIS (WRVU 10.83) Scheduled [...] filedocumented in this encounter Care Teams Supervisor Asbestos Removal Relationship Specialty Start Date End Date Tiny Walters APRN [address] [place] [phone] PCP - General Family Medicine 12/01/19 04/07/24 documented as of this encounter
--- OUTSIDE RECORDS SUMMARY | 2024-05-31 01:27 | XMS_ITS | Encounter Summary ---
[place] [address] Care Team Providers Care Anatomy Professor Name Role Phone Tiny Walters APRN Primary Care Provider +1- [phone] Reason for Referral * Diagnostic Test (Routine) - Closed Specialty Diagnoses / Procedures Referred By Contac t Referred To Contact Radiology Diagnoses Tonsil cancer Procedures IR Suture Release Husam Avilez MD [facility] [place] [address] [facility] [place] [address] Referral ID Status Reason Start Date Expiration Date V isits Requested Visits Authorized [id number] Closed Specialty Service Requested 02/11/2020 08/11/2021 1 1 Reason for Visit * Diagnostic Test (Routine) - Closed Specialty Diagnoses / Procedures Referred By Contac t Referred To Contact Radiology Diagnoses Tonsil cancer Procedures IR Suture Release Husam Avilez MD [facility] [place] [address] [facility] [place] [address] Referral ID Status Reason Start Date Expiration Date V isits Requested Visits Authorized [id number] Closed Specialty Service Requested 02/11/2020 08/11/2021 1 1 Encounter Details Date Type Department Care Team (Latest Contact Info) Description 03/02/2020 9:32 AM EST - 03/02/2020 11:59 PM EST Hospital Encounter [place] [address] Gume Christy MD [address] [place] [address] [place] [address] Tonsil cancer Discharge Disposition: Home Social History [...] on file documented as of this encounter Discharge Instructions * Discharge Instructions* Lo Perry RN - 03/02/2020 10:23 AM EST [facility] Interventional Radiology Discharge Instructions for Feeding Tube Care You had a feeding tube placed to help with your nutrition. The tube is either in your stomach, or your small intestine, depending on which tube you and your doctor decided upon. Please read the following instructions on how to care for your new feeding tube, and how to prevent, and treat, possible issues. How to care for your feeding tube: * The most common problem seen with feeding tubes is clogging. Proper flushing is the best way to avoid this issue. * Flush the feeding tube (you will use a special syringe for this) with 30-60 cc of room temperature or warm water every 4-6 hours during continuous feeding, anytime the feeding is interrupted, before and after every intermittent feeding or medication administration, or at least once or twice a daywhen the tube is not being used. DO NOT USE ACIDIC IRRIGANTS SUCH CRANBERRY JUICE OR COLA BEVERAGES TO FLUSH THE TUBE. These fluids will contribute to clogging. * Ask your provider to convert all your medications into liquid form. If you have medications whichare in pill or powder form, make sure they are crushed (ask your provider or pharmacist which medications cannot be crushed) and dilute them really well. Administer each medication separately as thiswill help prevent potential medication interactions and associated clogging. * If flushing becomes difficult, contact the Interventional Radiology department. DO NOT FORCEFULLY FLUSH, as this may result in rupture of the tube and injury to your intestine. ____X___* If you have the NON Low profile MONIQUE-PÉREZ feeding tube the retention balloon (side port labeled ???BAL?? ) should be checked every 1-2 weeks. It should contain between 5 cc of water. If it islow this should be replaced. Do not put medications or flush through this port. If your tube becomes clogged: *DO NOT USE CRANBERRY JUICE, COLA DRINKS, MEAT TENDERIZER OR CHYMOTRYPSIN. Okay to use clear, white, sugar-free solutions such as water, seltzer water and DIET Aster Lucita. *Make sure the feeding tube is not kinked or clamped off. If the clog is visible above the skin surface gently massage or ???milk?? the tube between fingers to break up the clog. Then flush the tubegently. STOP if it remains clogged. *Place the special syringe into the lumen of the tube and gently pull back, then depress the plunger to dislodge the clog. Gently continue these steps until the clog dislodges. If it does not dislodge, contact Interventional Radiology. DO NOT INSERT FOREIGN OBJECTS INTO THE TUBE. 2 If your tube falls out: You have been provided with a small red rubber catheter. If your tube falls out, place this catheter into the hole in your skin, about 6 inches, and tape well to the skin. Please do not flush the tube or put tube feedings through this catheter until you have contacted Interventional Radiology. How to care for the skin around the feeding tube: * It is normal to see a small amount of yellow mucous accumulate around the tube. Gently cleanse the site with mild soap and water and pat dry. Try to avoid allowing the mucous to build up and scab. Clean sutures, external bolsters and any stabilizing devices with mild soap and water using a Q-tip.DO NOT USE HYDROGEN PEROXIDE. This can damage the tube and is harsh on the skin. * You may shower with the waterproof dressing on for the first 3 days. Then you may shower with thedressing off, cleansing the area as instructed. You can replace the dressing, or leave it off if you wish. No swimming, tub baths or whirlpools WITHOUT a waterproof bandage for the first 4 weeks. When to call your provider: * If you develop pain at the site of your feeding tube that doesn???t resolve with pain medications. * If you develop abdominal pain or bloating with flushing or feeding. * If you develop redness, swelling or drainage from the around the feeding tube or suture sites. * If you develop bleeding around or through the tube * If you have trouble flushing the tube, or if the feedings are running slower than usual * If you notice any damage to the tube or its attachments. INTERVENTIONAL RADIOLOGY PHONE NUMBERS [phone] If you have a NON Low profile feeding tube, call with any questions or concerns. During regular office hours call: [phone]. If it is after regular office hours, weekends or holidays, please call [phone] and ask to speak to the [employer]p Software Support emissions engineer for Interventional Radiology. If you have a low profile ???KATI-PÉREZ?? feeding tube, please call Emilie Dunbar RN for any issues: [phone]. Revised 02/11/19 documented in this encounter Medications [...] as of this encounter Progress Notes * Lo Perry RN - 03/02/2020 10:42 AM EST BATSHEVA Adam at bedside to explain normal discharge around tube, as well as instructions for care at home, and what is expected vs abnormal. RN went over as well and sent patient home with printed instructions for care of G-tube. Patient provided with supplies for care at home. Sutures released and skin cleaned with no complications. No signs/ symptoms of infection. Balloon checked, 1/2 cc return. Disc flush to skin, 4.5ccs H2O inserted to hold tube in place. Patient had no concerns, and will call if has further questions. documented in this encounter Plan of Treatment Upcoming Encounters Date Type Department Care Team (Late st Contact Info) Description 05/31/2024 11:30 AM EST Office Visit Hematology/Oncolog y at [address] [phone] Tej Tipton MD [address] [facility] [address] HEMATOLOGY & [place] [address] Stacy Valle APRN [facility] [place] [place] [address] 06/01/2024 10:30 AM EST Scheduled View Only [place] [address] 06/01/2024 11:00 AM EST Office Visit [place] [phone] Luis E Chin MD [facility] [place] [address] 06/04/2024 8:30 AM EST Hospital Encounter [place] [address] Rayshawn Suresh MD [facility] [place] [address] 06/04/2024 8:30 AM EST - 06/04/2024 1:05 PM EST Surgery [place] [address] Rayshawn Suresh MD [facility] [place] [address] @THORACOSCOPY, SURG; W PLEURODESIS (WRVU 10.83) Scheduled Orders Name Type Priority Associated Diagnoses Orde r Schedule IR Suture Release Imaging Routine Tonsil cancer 1 Occurrences starting 03/02/2020 until 03/02/2020 Scheduled Procedures Name Priority Associated Diagnoses Date/Ti [...] tonsil documented in this encounter Care Teams Anatomy Professor Relationship Specialty Start Date End Date Tiny Walters APRN [address] [place] [phone] PCP - General Family Medicine 12/01/19 04/07/24 documented as of this encounter
--- OUTSIDE RECORDS SUMMARY | 2024-05-31 01:27 | XMS_ITS | Encounter Summary ---
Author Organization [facility] Address [facility] [place] [address] Care Team Providers Care Passenger Service Supervisor Name Role Phone Tiny Walters APRN Primary Care Provider +1- [phone] Reason for Visit * Reason Comments Chemotherapy Cycle 1, Day 8 - Cis platin * Treatment/Therapy Plan Authorization (Routine) - Closed Specialty Diagnoses / Procedures Referred By Contac t Referred To Contact Diagnoses Tonsil cancer Dehydration Drug-induced nausea and vomiting Procedures TC PALONOSETRON HCL, 25MCG, INJECTION (ALOXI) TC APREPITANT, 1 MG, INJECTION TC CISPLATIN, POWDER OR SOLUTION, 10MG, INJECTION Gume Christy MD [address] [place] [address] [place] [address] [facility] Hem Onc Infusion [address] [place] [phone] Referral ID Status Reason Start Date Expiration Date Visits Re quested Visits Authorized [id number] Closed 01/24/2020 04/17/2021 30 0 Encounter Details Date Type Department Care Team (Late st Contact Info) Description 03/06/2020 11:00 AM EST Infusion Hematology Oncology at [address] [phone] Tonsil cancer Social History Tobacco [...] Notes * Sudeep, Diana C, RN - 03/06/2020 11:00 AM EST INFUSION THERAPY ADMINISTRATION NOTES DIAGNOSIS: Tonsillar cancer CYCLE #: Cycle 1, Day 8 - Cisplatin REASON FOR VISIT: To receive chemotherapy concurrent with radiation. SUBJECTIVE: Zen offers no complaints. OBJECTIVE: VSS. Seen by provider. Ready to treat. LAB DATA: WBC - 9.46, H/H - 13.8/39.9, Plt Ct - 313, ANC - 7.14, Lytes wnl, BUN/CR - 25/1.01, MG++ - 1.8 IV ACCESS: Port accessed without difficulty, flushes readily with brisk blood return. Pre administration: Chemotherapy orders independently verified for drug name, route, and dosage per patient's height, weight and BSA by Shirley Sheets RN and [facility]. REACTIONS (DESCRIPTION, TIME, INTERVENTION AND [...] EST Office Visit Hematology/Oncolog y at [address] [phone] Tej Tipton MD [facility] [facility] [address] HEMATOLOGY & [place] [address] Stacy Valle APRN [facility] [place] [address] 06/01/2024 10:30 AM EST Scheduled View [place] [phone] 06/01/2024 11:00 AM EST Office Visit [place] [phone] Luis E Chin MD [facility] [place] [address] 06/04/2024 8:30 AM EST Hospital Encounter [place] [address] Rayshawn Suresh MD [facility] [place] [address] 06/04/2024 8:30 AM EST - 06/04/2024 1:05 PM EST Surgery [place] [phone] Rayshawn Suresh MD [facility] [place] [address] @THORACOSCOPY, SURG; W PLEURODESIS (WRVU 10.83) Scheduled [...] over 2 Minutes, ONCE, 1 dose, On 03/06/20 at 1130, Alternative administration of IV push over 2 minutes is a recommendation from the oil expert. Administer prior to chemotherapy., Routine Given 03/06/2020 12:23 PM EST 130 mg CISplatin (Platinol) 79 mg in sodium chloride 0.9% 329 mL chemo infusion 79 mg (rounded from 79.2 mg = 40 mg/m2/dose ? 1.98 m2 Treatment Plan BSA from Recorded weight), Intravenous, ONCE, 1 dose, On Fri03/06/20 at 1230, Administer over 60 Minutes, Warning Vesicant/Irritant Medication New Bag 03/06/2020 1:07 PM EST 79 mg 329 mL/hr dexamethasone (Decadron) injection 10 mg 10 mg, Intravenous, ONCE, 1 dose, On Fri03/06/20 at 1130, Administer prior to chemotherapy Given 03/06/2020 12:29 PM EST 10 mg heparin, porcine 100 unit/mL flush 500 Units 500 Units, Intravenous, ONCE PRN, Starting on Fri03/06/20 at 1105, Until Fri03/06/20 at 1718, Line Care, Refer to Intravenous (IV) Procedure: Accessing Implanted Vascular Access Devices (654) procedure and/or Intravenous (IV) Job Aid: Adult Flushing & Catheter Care (0830) job aid for additional information regarding guidelines and administration., Routine Given 03/06/2020 2:10 PM EST 500 Units palonosetron (ALOXI) injection 0.25 mg 0.25 mg, Intravenous, ONCE, 1 dose, On Fri03/06/20 at 1130, Administer over 30 seconds. Administer prior to chemotherapy, Routine Given 03/06/2020 12:23 PM EST 0.25 mg sodium chloride 0.9 % (flush) flush 5-20 mL 5-20 mL, Intravenous, EVERY 1 MIN PRN, Starting on Fri03/06/20 at 1105, Until Fri03/06/20 at 1718, Line Care, Flush pertains to all indwelling lines. Flush per protocol found in the job aid using the link provided on this medication record. Refer to Intravenous (IV) Job Aid: Adult Flushing & Catheter Care (1489) job aid for additional information regarding guidelines and administration., Routine Given 03/06/2020 2:10 PM EST 20 mLs sodium chloride 0.9% infusion 1,000 mL, at 1,000 mL/hr, Intravenous, CONTINUOUS, Starting on Fri03/06/20 at 1130, Until Fri03/06/20 at 1229, Pre-CISplatin New Bag 03/06/2020 10:45 AM EST 1,000 mLs 1000 mL/hr sodium chloride 0.9% infusion 500 mL, at 500 mL/hr, Intravenous, CONTINUOUS, Starting on Fri03/06/20 at 1330, Until Fri03/06/20 at 1429, Post CISplatin New Bag 03/06/2020 12:46 PM EST 500 mLs 500 mL/hr documented in this encounter Care Teams Passenger Service Supervisor Relationship Specialty Start Date End Date Tiny Walters, BATSHVEA [address] [place] [phone] PCP - General Family Medicine 12/01/19 04/07/24 documented as of this encounter
--- OUTSIDE RECORDS SUMMARY | 2024-05-31 01:27 | XMS_ITS | Encounter Summary ---
Author Organization [facility] Address [facility] [place] [address] Care Team Providers Care Building Cleaner Name Role Phone Tiny Walters APRN Primary Care Provider +1- [phone] Encounter Details Date Type Department Care Team (Late st Contact Info) Description 03/06/2020 10:15 AM EST Office Visit Hematology/Oncology at [address] [phone] Gume Christy MD [address] [place] [address] [place] [address] Tonsil cancer Social History Tobacco Use Types [...] Sign Reading Time Taken Comments Blood Pressure 136/72 03/06/2020 10:15 AM EST Pulse 68 03/06/2020 10:15 AM EST Temperature 37.1 ??C (98.8 ??F) 03/06/2020 1 0:15 AM EST Respiratory Rate 20 03/06/2020 10:1 5 AM EST Oxygen Saturation 97% 03/06/2020 10: 15 AM EST Inhaled Oxygen Concentration - - Weight 80.6 kg (177 lb 12.8 oz) 020 10:15 AM EST Height 170.2 cm (5' 7.01) 03/06/2020 1 0:15 AM EST Body Mass Index 27.84 03/06/2020 10:15 AM EST documented in this encounter Progress Notes * Gume Christy MD - 03/06/2020 10:15 AM EST Hematology/Oncology Clinic [facility] Patient Active Problem List Diagnosis ??? 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 Odynophagia, progressing to R otalgia, headache, trismus Summer 2019; large R tonsil non-ker SCCa extending to intrinsic tongue, pterygoids, FOM; nonpalable bilateral adenopathy B. Definitive chemoradiation (weekly cisplatin) instituted 02/29/2020 ??? Gastrostomy tube in place Balloon-retained (5 mL inflation), 16 Fr, placed by [facility] 02/11/2020 ??? Raynaud's syndrome ONCBCN ONCOLOGY (AMB) 02/29/2020 Day, Cycle Day 1, Cycle 1 CISplatin (Platinol) IV 40 mg/m2/dose = 79 mg Med Onc checkup; due for dose #2 cisplatin. No major problems with chemotherapy dose #1. Grade 1 nausea on the day after chemotherapy, ablated with a dose of Compazine. He also had constipation, which is not typical for him. This led to some abdominal pain, improved after a dose of stool softener. No hearing problems, no tinnitus, no peripheral neuropathy. No infectious complications. He had the gastrostomy stay sutures removed by interventional radiology at [facility] last week. He is maintaining a full oral diet, but notes that his taste buds are declining already. Energy level is decreased slightly, and he has been going tobed earlier than usual, nonetheless he is keeping up with ADLs. He has noted increased right jaw pain, mostly with talking or yawning. He is on ibuprofen 4 to 600 mg 3 or 4 times a day as well as Tylenol on a regular basis; he finds the ibuprofen more effective. Physical exam: He looks well, in good spirits. Voice is clear Oral exam shows unchanged trismus at about 2 cm interincisor distance. Tongue deviates to the rightas before. No evidence of intraoral infection. Tumor not visible because of trismus. Neck exam shows no palpable adenopathy. Lungs are clear to auscultation and percussion Cardiac exam is normal. Right Mediport is nontender. Abdomen is benign, no hepatosplenomegaly or masses. G-tube site is clean. Extremities are without clubbing cyanosis or edema Neurologic exam shows normal motor and sensory function, normal cranial nerves. Reflexes 2+. Labs: Today's white count 9.46, hemoglobin 13.8, platelets 313, ANC 7140. Electrolytes are normal, creatinine stable at 1.01, hepatic enzymes normal. Nonfasting glucose 83. Albumin 3.6. Impression: P16 positive right tonsil cancer, tolerating curative intent chemoradiation well so far. Increased right jaw pain possibly due to tumor swelling secondary to treatment. Chemotherapy related nausea, no worse than grade 1, medically controlled. Chemotherapy related constipation, a common c omplication. Taste sensation declining, slightly ahead of expected schedule. Decreasing weight, multifactorial, but so far he is maintaining an oral diet and I do not believe he needs to start using with G-tube for nutrition. Plan: No change in chemotherapy or supportive care. Recommended that he take a Colace capsule once a day, but if he has no bowel movement for a full 24 hours he should add a dose of MiraLAX. Continuecurrent pain regimen with ibuprofen and Tylenol intermixed; if jaw pain increases, I would recommend adding gabapentin. Follow-up next week. Gume Christy MD, FACP parking regulation enforcement officer Hematology/Oncology Section [facility]/[address] [address] Voice recognition software used for this note; please excuse certified optician errors. I personally reviewed past medical, surgical, family medical histories, reviewed current medications, vital signs, labs, and performed full review of systems. These are documented below the narrativefor clarity and succinctness. Outpatient Medications Marked as Taking for the 03/06/20 encounter (Office Visit) with Melissa Christy MD Medication Sig Dispense Refill ??? docusate sodium (Colace) 100 mg Capsule [...] ONE CAPSULE BY MOUTH EVERY DAY ??? acetaminophen (Tylenol) 500 mg Tablet Take 1,000 mg by mouth every 6 hours as needed for Pain. Review of Systems: Review of systems is negative for other GROUP COUNSELOR, bone, pulmonary, cardiac, GI, , extremity, neurologic, endocrine, skin, constitutional, emotional, or functional problems. Vitals Office Visit from 03/06/2020 in Hematology/Oncology at [facility] Weight 80.6 kg (177 lb 12.8 oz) Height 170.2 cm (5' 7.01) BSA (Calculated - sq m) 1.95 sq meters BMI (Calculated) 27.84 Temp 37.1 ??C (98.8 ??F) Temp src Temporal Heart Rate 68 Resp 20 BP 136/72 BP Location Right arm Patient Position Sitting SpO2 97 % Body surface area is 1.95 meters squared. Wt Readings from Last 3 Encounters: 03/06/20 80.6 kg (177 lb 12.8 oz) 03/03/20 82.1 kg (181 lb) 03/01/20 83.5 kg (184 lb) No results found for this or any previous visit (from the past 72 hour(s)). ++++++++++++++++++++++++++++++++++++++++++++++++++++ documented in this encounter Plan of Treatment Upcoming Encounters Date Type Department Care Team (Late st Contact Info) Description 05/31/2024 11:30 AM EST Office Visit Hematology/Oncolog y at [address] [phone] Tej Tipton MD [address] [facility] HEMATOLOGY & ONCOLOGY [place], [place] [phone] Stacy Valle APRN [facility] [place] [address] 06/01/2024 10:30 AM EST Scheduled View [place] [phone] 06/01/2024 11:00 AM EST Office Visit [place] [address] Luis E Chin MD [facility] [place] [address] 06/04/2024 8:30 AM EST Hospital Encounter [place] [address] Rayshawn Suresh MD [facility] [place] [address] 06/04/2024 8:30 AM EST - 06/04/2024 1:05 PM EST Surgery [place] [address] Rayshawn Suresh MD [facility] [place] [address] @THORACOSCOPY, SURG; W PLEURODESIS (WRVU 10.83) Scheduled [...] documented in this encounter Care Teams Building Cleaner Relationship Specialty Start Date End Date Tiny Walters APRN [address] [place] [phone] PCP - General Family Medicine 12/01/19 04/07/24 documented as of this encounter
--- OUTSIDE RECORDS SUMMARY | 2024-05-31 01:27 | XMS_ITS | Encounter Summary ---
Author Organization [facility] Address [facility] [place] [address] Care Team Providers Care Mobile Equipment Operator Name Role Phone Tiny Walters APRN Primary Care Provider +1- [phone] Reason for Visit * Reason Comments Chemotherapy Cycle 1 Day 11 Hydra tion, Anti-emetics * Treatment/Therapy Plan Authorization (Routine) - Closed Specialty Diagnoses / Procedures Referred By Fritz t Referred To Contact Diagnoses Tonsil cancer Dehydration Drug-induced nausea and vomiting Procedures TC PALONOSETRON HCL, 25MCG, INJECTION (ALOXI) TC APREPITANT, 1 MG, INJECTION TC CISPLATIN, POWDER OR SOLUTION, 10MG, INJECTION Gume Christy MD [address] [place] [address] [place] [address] [facility] Hem Onc Infusion [address] [place] [phone] Referral ID Status Reason Start Date Expiration Date Visits Re quested Visits Authorized [id number] Closed 01/24/2020 04/17/2021 30 0 Encounter Details Date Type Department Care Team (Late st Contact Info) Description 03/09/2020 11:00 AM EST Infusion Hematology Oncology at [address] [phone] Tonsil cancer Social History Tobacco [...] Sign Reading Time Taken Comments Blood Pressure 126/79 03/09/2020 10:51 AM EST Pulse 61 03/09/2020 10:51 AM EST Temperature 36.5 ??C (97.7 ??F) 03/09/2020 10:[address] Respiratory Rate 18 03/09/2020 10:51 AM EST Oxygen Saturation 100% 03/09/2020 10:51 AM EST Inhaled Oxygen Concentration - - Weight 79.2 kg (174 lb 9.6 oz) 03/09/2020 10:51 AM EST Height 170.2 cm (5' 7.01) 03/09/2020 10:[address] Body Mass Index 27.34 03/09/2020 10:51 AM EST documented in this encounter Progress Notes * Margie Page RN - 03/09/2020 11:00 AM EST INFUSION THERAPY ADMINISTRATION NOTES DIAGNOSIS:Tonsil Cancer CYCLE #:1 Day REASON FOR VISIT: Hydration SUBJECTIVE Zen offers no complaints. He states he hit a wall last night. He is feeling like his body isfighting something. He is still working when he can. OBJECTIVE IV ACCESS: Mediport accessed, blood return present, flushes easily. REACTIONS (DESCRIPTION, TIME, INTERVENTION AND EFFECTIVENESS) none ASSESSMENT Zen was awake, alert and tolerated treatment well. PLAN Return to clinic per routine. documented in this encounter Plan of Treatment Upcoming Encounters Date Type Department Care Team (Late st Contact Info) Description 05/31/2024 11:30 AM EST Office Visit Hematology/Oncolog y at [address] [phone] Tej Tipton MD [address] [facility] HEMATOLOGY [place] [address] Stayc Valle APRN [facility] [place] [address] 06/01/2024 10:30 AM EST Scheduled View [place] [address] 06/01/2024 11:00 AM EST Office Visit [place] [address] Luis E Chin MD [facility] DR [place] [address] 06/04/2024 8:30 AM EST Hospital Encounter [place] [phone] Rayshawn Suresh MD [facility] DR [place] [address] 06/04/2024 8:30 AM EST - 06/04/2024 1:05 PM EST Surgery [place] [phone] Rayshawn Suresh MD [facility] DR [place] [address] @THORACOSCOPY, SURG; W PLEURODESIS (WRVU 10.83) Scheduled [...] mg), Intravenous, ONCE, 1 dose, On Ambreen 03/09/20 at 1115 Given 03/09/2020 11:08 AM EST 5.2 mg heparin, porcine 100 unit/mL flush 500 Units 500 Units, Intravenous, ONCE PRN, Starting on Ambreen 03/09/20 at 1049, Until Ambreen 03/09/20 at 1414, Line Care, Refer to Intravenous (IV) Procedure: Accessing Implanted Vascular Access Devices (654) procedure and/or Intravenous (IV) Job Aid: Adult Flushing & Catheter Care (6595) job aid for additional information regarding guidelines and administration., Routine Given 03/09/2020 12:07 PM EST 500 Units ondansetron (Zofran) tablet 16 mg 16 mg, Oral, ONCE, 1 dose, On Ambreen 03/09/20 at 1115, Routine Given 03/09/2020 11:08 AM EST 16 mg sodium chloride 0.9 % (flush) flush 5-20 mL 5-20 mL, Intravenous, EVERY 1 MIN PRN, Starting on Ambreen 03/09/20 at 1049, Until Ambreen 03/09/20 at 1414, Line Care, Flush pertains to all indwelling lines. Flush per protocol found in the job aid using the link provided on this medication record. Refer to Intravenous (IV) Job Aid: Adult Flushing & Catheter Care (4768) job aid for additional information regarding guidelines and administration., Routine Given 03/09/2020 12:07 PM EST 20 mLs sodium chloride 0.9% infusion 1,000 mL, at 1,000 mL/hr, Intravenous, CONTINUOUS, Starting on Ambreen 03/09/20 at 1115, Until Ambreen 03/09/20 at 1214 New Bag 03/09/2020 11:04 AM EST 1,000 mLs 1000 mL/hr documented in this encounter Care Teams Mobile Equipment Operator Relationship Specialty Start Date End Date Tiny Walters, BATSHEVA [address] [place] [phone] PCP - General Family Medicine 12/01/19 04/07/24 documented as of this encounter
--- OUTSIDE RECORDS SUMMARY | 2024-05-31 01:27 | XMS_ITS | Encounter Summary ---
[place] [address] Care Team Providers Care Disk Recoater Name Role Phone Tiny Walters APRN Primary Care Provider +1- [phone] Reason for Referral * Diagnostic Test (Routine) - Closed Specialty Diagnoses / Procedures Referred By Fritz t Referred To Contact Radiology Diagnoses Tonsil cancer Procedures MRI Soft Tissue Neck wwo Contrast Jose Martin Rae MD [facility] [place] [address] [place] [phone] Referral ID Status Reason Start Date Expiration Date V isits Requested Visits Authorized [id number] Closed Specialty Service Requested 02/08/2020 08/08/2021 1 1 Reason for Visit * Diagnostic Test (Routine) - Closed Specialty Diagnoses / Procedures Referred By Contac t Referred To Contact Radiology Diagnoses Tonsil cancer Procedures MRI Soft Tissue Neck wwo Contrast Jose Martin Rae MD [facility] [place] [address] [place] [address] Referral ID Status Reason Start Date Expiration Date V isits Requested Visits Authorized [id number] Closed Specialty Service Requested 02/08/2020 08/08/2021 1 1 Encounter Details Date Type Department Care Team (Latest Contact Info) Description 02/09/2020 8:25 AM EDT - 02/09/2020 11:59 PM EDT Hospital [place] [address] Jose Martin Rae MD [facility] [place] [address] Tonsil cancer Discharge Disposition: Home Social History [...] Pain. 05/01/2020 documented as of this encounter Plan of Treatment Upcoming Encounters Date Type Department Care Team (Late st Contact Info) Description 05/31/2024 11:30 AM EST Office Visit Hematology/Oncolog y at [address] [phone] Tej Tipton MD [address] [facility] HEMATOLOGY & [place] [address] Stacy Valle APRN [facility] [place] [address] 06/01/2024 10:30 AM EST Scheduled View Only Radiation Oncology at [place] [phone] 06/01/2024 11:00 AM EST Office Visit [place] [phone] Luis E Chin MD [facility] [place] [address] 06/04/2024 8:30 AM EST Hospital Encounter Main Operating Room [place] [phone] Rayshawn Suresh MD [facility] [place] [address] 06/04/2024 8:30 AM EST - 06/04/2024 1:05 PM EST Surgery [place] [address] Rayshawn Suresh MD [facility] [place] [address] @THORACOSCOPY, SURG; W PLEURODESIS (WRVU 10.83) Scheduled [...] Name Priority Date/Time Associated Diagnosis Comments MRI NECK WITH/WO CONTRAST Routine 02/09/2020 10:32 AM EDT Tonsil cancer documented in this encounter Results * MRI Soft Tissue Neck wwo Contrast (02/09/2020 10:32 AM EDT) Anatomical Region Laterality Modality Neck Magnetic Resonan ce Impressions 02/09/2020 1:06 PM EDT Stability of the 4 cm mass centered in the right palatine tonsil with extension into the floor of mouth, soft palate and along extrinsic tongue muscles as described above. Stable appearance of the known lymphadenopathy. Thank you for letting us participate in the care of this patient. For questions regarding this report, please contact the number below. ? Narrative 02/09/2020 1:06 PM EDT EXAMINATION: MRI SOFT TISSUE NECK WWO CONTRAST CLINICAL HISTORY: Head/neck cancer, staging Oropharynx protocol. Please extend above base of skull and nasopharynx. Re-staging prior to radiotherapy TECHNIQUE: MRI of the neck was performed before and after the intravenous administration of 17cc Dotarem. Oropharyngeal protocol. COMPARISON: PET CT scan 01/11/2020 and MRI soft tissue neck 12/28/2019. FINDINGS: The bulky enhancing mass centered at the right tonsillar pillar with extension into the right tongue base and floor of mouth with involvement of the neurovascular bundle is not significantly changed in size with a maximal measurement of approximately 4 cm. Cephalad extension into the soft palate present. The mass does not cross midline. Mild asymmetric enlargement of the right sublingual gland is felt to most likely represent reactive edema given the lack of associated restricted diffusion in this region. As seen previously the mass abuts the medial pterygoid muscle without direct invasion. Spread of tumor along the right styloglossus and stylopharyngeus muscle again noted. Enlarged bilateral retropharyngeal nodes have a similar appearance. Borderline enlarged right level 2 and 3 lymph nodes are unchanged. Interval left tonsillectomy has been performed. Visualized paranasal sinuses are mostly clear. Visualized intracranial components within normal limits. Procedure Note Jigar Lemus MD - 02/09/2020 EXAMINATION: MRI SOFT TISSUE NECK WWO CONTRAST CLINICAL HISTORY: Head/neck cancer, staging Oropharynx protocol. Please extend above base of skull and nasopharynx. Re-staging prior to radiotherapy TECHNIQUE: MRI of the neck was performed before and after the intravenousadministration of 17cc Dotarem. Oropharyngeal protocol. COMPARISON: PET CT scan 01/11/2020 and MRI soft tissue neck 12/28/2019. FINDINGS: The bulky enhancing mass centered at the right tonsillar pillar withextension into the right tongue base and floor of mouth with involvement of the neurovascular bundle is not significantly changed in size with a maximal measurement of approximately 4 cm. Cephalad extension into the softpalate present. The mass does not cross midline. Mild asymmetric enlargement ofthe right sublingual gland is felt to most likely represent reactive edemagiven the lack of associated restricted diffusion in this region. As seen previously the mass abuts the medial pterygoid muscle withoutdirect invasion. Spread of tumor along the right styloglossus andstylopharyngeus muscle again noted. Enlarged bilateral retropharyngeal nodes have asimilar appearance. Borderline enlarged right level 2 and 3 lymph nodes areunchanged. Interval left tonsillectomy has been performed. Visualized paranasal sinuses are mostly clear. Visualized intracranial components within normal limits. IMPRESSION Stability of the 4 cm mass centered in the right palatine tonsil withextension into the floor of mouth, soft palate and along extrinsic tongue musclesas described above. Stable appearance of the known lymphadenopathy. Thank you for letting us participate in the care of this patient. Forquestions regarding this report, please contact the number below. Jose Martin Rae MD IMG MRI ORDERABLES documented in this encounter Visit Diagnoses Diagnosis Tonsil cancer Malignant neoplasm of tonsil documented in this encounter Administered Medications Inactive Administered Medications - up to 3 most recent administrations Medication Order MAR Action Action Date Dose Rate Site gadoterate meglumine (DOTAREM) 0.5 mmol/mL (376.9 mg/mL) injection 16.52 mL 16.52 mL (0.2 mL/kg/dose ? 82.6 kg), Intravenous, ONCE PRN, 1 dose, Starting on Fri02/09/20 at 1032, Until Fri02/09/20 at 1017, Per Protocol, Radiology Contrast, Routine Given 02/09/2020 10:17 AM EDT 17 mLs documented in this encounter Care Teams Disk Recoater Relationship Specialty Start Date End Date Tiny Walters APRN [address] [place] [phone] PCP - General Family Medicine 12/01/19 04/07/24 documented as of this encounter
--- OUTSIDE RECORDS SUMMARY | 2024-05-31 01:27 | XMS_ITS | Encounter Summary ---
Author Organization [facility] [place] [address] Care Team Providers Care Patcher Name Role Phone Tiny Walters APRN Primary Care Provider +1- [phone] Encounter Details Date Type Department Care Team (Late st Contact Info) Description 03/09/2020 1:30 PM EST Office Visit Radiation Oncology at [address] [phone] Hansel Becerra MD [address] [place] [address] RADIATION ONCOLOGY [place], [place] [id number] Tonsil cancer Social History Tobacco Use Types [...] as of this encounter Progress Notes * Hansel Becerra MD - 03/09/2020 1:30 PM EST ON TREATMENT VISIT NOTE Zen Sousabensonconstance is a 39 y.o. 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 Definitive chemoradiotherapy. Current treatment dose: 16 Gy in 8 fractions. Anticipated total dose: 70 Gy in 35 fractions. Concomitant Therapy: Y ONCBCN ONCOLOGY (AMB) 02/29/2020 03/06/2020 Day, Cycle Day 1, Cycle 1 Day 8, Cycle 1 CISplatin (Platinol) IV 40 mg/m2/dose = 79 mg 40 mg/m2/dose = 79 mg Evaluation of Port Verification Films: PORT films have been reviewed, please see ARIA for details. Changes in medical condition Pain: denies Secretions/Dryness: some dryness, using biotene. Swallowing Function: no issues but +dysguesia. PEG in place but not needing it. Skin: no issues Nutrition Assessment: Weight : 83.5 kg initial Change: 79.2 kg this week Objective: Vitals 03/09/2020 BP 126/79 BP Location Right arm Pulse 61 Temp 97.7 Resp 18 Height (Iraqi) 67.008 Height (Metric) 170.2 cm Weight (Iraqi) 174 lbs 10 oz Weight (Metric) 79.198 kg BMI (Calculated) 27.34 kg/m2 Pulse Oximetry 100 O2 Flow Rate (L/min) O2 Device BSA 1.93 SKIN: no skin erythema MUCOSA: no mucositis Assessment: No toxicity, treatment started within the last week. CTCAE TOXICITY GRADES (see below for corrales): Site Grade Skin 0 Xerostomia 0 Pharyngeal Mucositis 0 Dysphagia 0 Hoarseness 0 TREATMENT RESPONSE: No change Plan: ?? Continue RT per prescription ?? Pain control: none needed at this time ?? Skin: Jeans cream prn ?? Mucositis: ?? Pain control: see above ?? Oral hygiene consisting of baking soda/salt rinse at least 8 times daily ?? 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 Weight stable, all by mouth at this time CTCAE v4.03 [...] AM EST Office Visit Hematology/Oncolog y at [address] [phone] Tej Tipton MD [facility] DR HEMATOLOGY [place] [address] Stacy Valle APRN [facility] [place] [address] 06/01/2024 10:30 AM EST Scheduled View [place] [phone] 06/01/2024 11:00 AM EST Office Visit [place] [phone] Luis E Chin MD [facility] [place] [address] 06/04/2024 8:30 AM EST Hospital Encounter [place] [phone] Rayshawn Suresh MD [facility] [place] [address] 06/04/2024 8:30 AM EST - 06/04/2024 1:05 PM EST Surgery [place] [address] Rayshawn Suresh MD [facility] [place] [address] @THORACOSCOPY, SURG; W PLEURODESIS (WRVU 10.83) Scheduled [...] tonsil documented in this encounter Care Teams Patcher Relationship Specialty Start Date End Date Tiny Walters APRN [address] [place] [phone] PCP - General Family Medicine 12/01/19 04/07/24 documented as of this encounter
--- OUTSIDE RECORDS SUMMARY | 2024-05-31 01:27 | XMS_ITS | Encounter Summary ---
Author Organization [facility] Address [facility] [place] [address] Care Team Providers Care Enterprise Architect Name Role Phone Tiny Walters APRN Primary Care Provider +1- [phone] Encounter Details Date Type Department Care Team (Late st Contact Info) Description 02/28/2020 11:00 AM EST Office Visit Hematology/Oncology at [address] [phone] Gume Christy MD [address] [place] [address] [place] [address] [address]; Tonsil cancer Social History Tobacco Use Types [...] Sign Reading Time Taken Comments Blood Pressure 131/73 02/28/2020 11:10 AM EST Pulse 75 02/28/2020 11:10 AM EST Temperature 37.6 ??C (99.7 ??F) 02/28/2020 11:[address] Respiratory Rate 20 02/28/2020 11:10 AM EST Oxygen Saturation 100% 02/28/2020 11:10 AM EST Inhaled Oxygen Concentration - - Weight 82.8 kg (182 lb 8 oz) 02/28/2020 11:10 AM EST Height 170.2 cm (5' 7.01) 02/28/2020 11:[address] Body Mass Index 28.58 02/28/2020 11:10 AM EST documented in this encounter Progress Notes * Gume Christy MD - 02/28/2020 11:00 AM EST Images from the original note were not included. Hematology/Oncology Clinic [facility] Patient Active Problem List Diagnosis ??? 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 Odynophagia, progressing to R otalgia, headache, trismus Summer 2019; large R tonsil non-ker SCCa extending to intrinsic tongue, pterygoids, FOM; nonpalable bilateral adenopathy B. Definitive chemoradiation (weekly cisplatin) instituted 02/29/2020 ??? Gastrostomy tube in place Balloon-retained (5 mL inflation), 16 Fr, placed by [facility] IR 02/11/2020 ??? Raynaud's syndrome Here for med onc checkup. Due to start chemoradiation tomorrow. He has had no new cancer related symptoms since last visit. He still is bothered by trismus. Tumor related odynophagia has been stable; because of a questionable PET CT showing uptake in the left tonsil, he underwent left tonsillectomy which obviously increased his throat pain temporarily. He has had no trouble with obstruction, aspiration, or velopalatal reflux. He had several wisdom teeth removed since last visit, sockets healing well. He also underwent prophylactic G-tube placement and Mediport placement on 02/10 without complications. He and his had been working on helping there small children get acquainted with his situation,plans for therapy, and the Mediport NG tube. His daughter is helping with G-tube care which is helping her to feel more comfortable. He has been working with his employer on plans for short-term disability starting in mid February. Physical exam: He looks well, in no acute distress. Oral exam shows moderate trismus, right tonsil tumor pushing against the soft palate. Trismus limits the exam somewhat but I see no new findings no evidence of infection. There is moderate deviation of the tongue to the right with extrusion. Neck exam is without palpable adenopathy today. The lungs are clear Right chest Mediport is healing well Cardiac exam is normal Abdomen is benign without hepatosplenomegaly or masses. G-tube site is clean, stay sutures still inplace. Extremities are without clubbing cyanosis or edema Neurologic exam shows normal motor and sensory function. Reflexes 2+. Cranial nerves normal, no sign of Toan's syndrome. Labs: Today's white count 7.12, hemoglobin 13.7, platelets 270; chemistry studies showed normal electrolytes, BUN of 19, creatinine 0.95, normal hepatic enzymes, albumin 3.7. Pathology: L tonsillectomy 01/28/2020: Left tonsil, excision: - Reactive follicular lymphoid hyperplasia. - Actinomyces colonization. - There is no evidence of malignancy. Since my initial visit he has had an MRI of the neck: FINDINGS: The bulky enhancing mass centered at [...] of associated restricted diffusion in this region. ?? As seen previously the mass abuts the medial pterygoid muscle without direct invasion. Spread of tumor along the right styloglossus and stylopharyngeus muscle again noted. Enlarged bilateral retropharyngeal nodes have a similar appearance. Borderline enlarged right level 2 and 3 lymph nodes are unchanged. Impression: Healthy 39-year-old never-smoker presenting with bulky p16 positive right tonsil cancerwith invasion up to the soft palate, laterally to the pterygoids, and medially to involve the intrinsic muscles of the tongue, with nonpalpable right greater than left adenopathy by imaging studies. PET/CT suggestion of L tonsil tumor exonerated by diagnostic tonsillectomy. He has undergone successful G-tube and Mediport placement. Plan: Proceed with chemotherapy and radiation on 02/29/2020. Chemotherapy will consist of cisplatin at 40 mg per metered squared with supportive care to include copious fluids, prophylactic antiemetics, and day 4 or day 5 postchemotherapy hydration and repeat antiemetics. He has a prescription for pr ochlorperazine for use as needed. We talked again today about the potential side effects of this regimen and more specifically about chemotherapy side effects. We talked about the importance of taking antinausea medicine at the firsthint of nausea. We talked about the importance of copious hydration, and I recommended fluid intakeof an additional half gallon per day over and above his usual intake. We talked also about sexuality issues, and how most patients going through cancer therapy have much less interest and sometimes impaired performance. We also talked about the fact that any body fluid, including semen, will potentially be contaminated with chemotherapy and the importance of isolating such fluids to avoid exposure to others. We talked specifically about condom use in the setting. He feels physically and psychologically prepared to get going with therapy. I will see him on a weekly basis. He will also be followed regularly by our cancer center dietitian, and by our [facility] speech/language pathologist to work on trismus and swallowing rehab. Gume Christy MD, FACP gold leaf gilder Hematology/Oncology Section [facility]/[address] [address] Voice recognition software used for this note; please excuse cuff turner errors. I personally reviewed past medical, surgical, family medical histories, reviewed current medications, vital signs, labs, and performed full review of systems. These are documented below the narrativefor clarity and succinctness. Outpatient Medications Marked as Taking for the 02/28/20 encounter (Office Visit) with Melissa Christy MD Medication Sig Dispense Refill ??? Ibuprofen 200 mg Capsule Take 600 mg by mouth every 6 hours as needed. ??? amLODIPine-benazepril (LOTREL) 5-10 mg Capsule Take 1 capsule by mouth daily as needed. ??? venlafaxine XR (Effexor-XR) 75 mg Capsule, Sust. Release 24 hr TAKE ONE CAPSULE BY MOUTH EVERY DAY ??? acetaminophen (Tylenol) 500 mg Tablet Take 1,000 mg by mouth every 6 hours as needed for Pain. Review of Systems: Review of systems is negative for other CANDLE WRAPPER, bone, pulmonary, cardiac, GI, , extremity, neurologic, endocrine, skin, constitutional, emotional, or functional problems. Vitals Office Visit from 02/28/2020 in Hematology/Oncology at [facility] Weight 82.8 kg (182 lb 8 oz) Height 170.2 cm (5' 7.01) BSA (Calculated - sq m) 1.98 sq meters BMI (Calculated) 28.57 Temp 37.6 ??C (99.7 ??F) Temp src Temporal Heart Rate 75 Resp 20 BP 131/73 BP Location Right arm Patient Position Sitting SpO2 100 % Body surface area is 1.98 meters squared. Wt Readings from Last 3 Encounters: 02/28/20 82.8 kg (182 lb 8 oz) 02/16/20 81.6 kg (180 lb) 02/11/20 81.2 kg (179 lb) No results found for this or any previous visit (from the past 72 hour(s)). ++++++++++++++++++++++++++++++++++++++++++++++++++++ documented in this encounter Plan of Treatment Upcoming Encounters Date Type Department Care Team (Late st Contact Info) Description 05/31/2024 11:30 AM EST Office Visit Hematology/Oncolog y at [address] [phone] Tej Tipton MD [address] [facility] [address] HEMATOLOGY [place] [address] Stacy Valle APRN [facility] [place] [address] 06/01/2024 10:30 AM EST Scheduled View [place] [phone] 06/01/2024 11:00 AM EST Office [place] [phone] Luis E Chin MD [facility] [place] [address] 06/04/2024 8:30 AM EST Hospital Encounter [place] [phone] Rayshawn Suresh MD [facility] [place] [address] 06/04/2024 8:30 AM EST - 06/04/2024 1:05 PM EST Surgery [place] [address] Rayshawn Suresh MD [facility] [place] [address] @THORACOSCOPY, SURG; W PLEURODESIS (WRVU 10.83) Scheduled Procedures Name Priority Associated Diagnoses Date/Ti me @THORACOSCOPY, SURG; W PLEURODESIS (WRVU 10.83) metastatic pleural effusion 06/04/2024 8:30 AM EST BRONCHOSCOPY, DIAGNOSTIC (WRVU 2.53) metastatic pleural effusion 06/04/2024 8:30 AM EST DIONNA\ALMA.CATHETER,TUNNELED, WITH SQ PORT OR PUMP OVER 5YR (WRVU 5.79) metastatic pleural effusion 06/04/2024 8:30 AM EST documented as of this encounter Visit Diagnoses Diagnosis Gastrostomy tube in place Tonsil cancer Malignant neoplasm of tonsil documented in this encounter Care Teams Enterprise Architect Relationship Specialty Start Date End Date Tiny Walters APRN [address] [place] [phone] PCP - General Family Medicine 12/01/19 04/07/24 documented as of this encounter
--- OUTSIDE RECORDS SUMMARY | 2024-05-31 01:27 | XMS_ITS | Encounter Summary ---
Author Organization [facility] Address [facility] [place] [address] Care Team Providers Care Senior Product Marketing Manager Name Role Phone Tiny Walters APRN Primary Care Provider +1- [phone] Reason for Visit * Consultation (Routine) - Specialty Diagnoses / Procedures Referred By Fritz lanier Referred To Contact Hematology and Oncology Diagnoses Tonsil cancer Gume Christy MD [facility] [place] [address] [facility] Hem Onc Office [address] [place] [phone] Referral ID Status Reason Start Date Expiration Date V isits Requested Visits Authorized [id number] Continuity of Care 01/24/2020 01/23/2021 12 12 Encounter Details Date Type Department Care Team (Late st Contact Info) Description 02/29/2020 9:00 AM EST Telephone Hematology/Oncology at [address] [phone] Social History [...] Telephone Encounter - Tonya Machado RD - 02/29/2020 3:32 PM EST Nutrition Follow Up - Phone call Patient beginning chemo/RT this week. Spoke with patient briefly on the phone during his first infusion today. He is s/p IR placed 16 icelandic balloon retained g-tube on 02/10. He reports no issues with flushing or cleaning tube. Appetite remains good and he is eating adequately at this time. Weight is stable. Will follow up in clinic during his next infusion on 03/06. Encouraged patient to reach out if questions/concerns arise in the meantime. documented in this encounter Plan of Treatment Upcoming Encounters Date Type Department Care Team (Late st Contact Info) Description 05/31/2024 11:30 AM EST Office Visit Hematology/Oncolog y at [address] [phone] Tej Tipton MD [address] [facility] HEMATOLOGY [place] [address] Stacy Valle APRN [facility] [place] [address] 06/01/2024 10:30 AM EST Scheduled View [place] [phone] 06/01/2024 11:00 AM EST Office [place] [phone] Luis E Chin MD [facility] [place] [address] 06/04/2024 8:30 AM EST Hospital Encounter [place] [phone] Rayshawn Suresh MD [facility] [place] [address] 06/04/2024 8:30 AM EST - 06/04/2024 1:05 PM EST Surgery [place] [address] Rayshawn Suresh MD [facility] [place] [address] @THORACOSCOPY, SURG; W PLEURODESIS (WRVU 10.83) Scheduled [...] Associated Diagnoses Orde r Schedule Referral to Nutrition Services Outpatient Referral Routine Tonsil cancer Ordered: 01/24/2020 documented as of this encounter Visit Diagnoses Not on filedocumented in this encounter Care Teams Senior Product Marketing Manager Relationship Specialty Start Date End Date Tiny Walters APRN [address] [place] [phone] PCP - General Family Medicine 12/01/19 04/07/24 documented as of this encounter
--- OUTSIDE RECORDS SUMMARY | 2024-05-31 01:27 | XMS_ITS | Encounter Summary ---
Author Organization [facility] Address [facility] [place] [address] Care Team Providers Care Payroll And Benefits Specialist Name Role Phone Tiny Walters APRN Primary Care Provider +1- [phone] Reason for Visit * Reason Comments Chemotherapy Cycle 1, Day 1 - Cis platin * Treatment/Therapy Plan Authorization (Routine) - Closed Specialty Diagnoses / Procedures Referred By Contac t Referred To Contact Diagnoses Tonsil cancer Dehydration Drug-induced nausea and vomiting Procedures TC PALONOSETRON HCL, 25MCG, INJECTION (ALOXI) TC APREPITANT, 1 MG, INJECTION TC CISPLATIN, POWDER OR SOLUTION, 10MG, INJECTION Gume Christy MD [address] [place] [address] [place] [address] [facility] Hem Onc Infusion [address] [place] [phone] Referral ID Status Reason Start Date Expiration Date Visits Re quested Visits Authorized [id number] Closed 01/24/2020 04/17/2021 30 0 Encounter Details Date Type Department Care Team (Late st Contact Info) Description 02/29/2020 8:00 AM EST Infusion Hematology Oncology at [address] [phone] Tonsil cancer Social History Tobacco [...] Sign Reading Time Taken Comments Blood Pressure 131/79 02/29/2020 8:10 AM EST Pulse 70 02/29/2020 8:10 AM EST Temperature 36.5 ??C (97.7 ??F) 02/29/2020 8:10 AM ES T Respiratory Rate 18 02/29/2020 8:10 AM EST Oxygen Saturation 100% 02/29/2020 8:10 AM EST Inhaled Oxygen Concentration - - Weight 82.6 kg (182 lb) 02/29/2020 8:10 AM EST Height 170.2 cm (5' 7.01) 02/29/2020 8:10 AM ES T Body Mass Index 28.5 02/29/2020 8:10 AM EST documented in this encounter Progress Notes * Diana Sheets, RN - 02/29/2020 8:00 AM EST INFUSION THERAPY ADMINISTRATION NOTES DIAGNOSIS: Tonsillar cancer CYCLE #: Cycle 1, Day 1 - Cisplatin REASON FOR VISIT: To receive chemotherapy concurrent with radiation. SUBJECTIVE: Zen offers no complaints. Denies anxiety, refuses offered lorazepam. OBJECTIVE: VSS. Seen by provider 02/28/20. LAB DATA: 02/28/20-WBC - 7.12, H/H - 13.7/40.5, Plt Ct - 270, ANC - 3.96, Lytes wnl, BUN/CR - 19/0.95, MG++ - 2.0 IV ACCESS: Port accessed without difficulty, flushes readily with brisk blood return. Pre administration: Chemotherapy orders independently verified for drug name, route, and dosage per patient's height, weight and BSA by Shirley Sheets RN and [facility]. REACTIONS (DESCRIPTION, TIME, INTERVENTION AND EFFECTIVENESS) none Pt. chemo teaching instructions included: During clinic hours (8am-5pm Friday-Friday): pt. can call [phone] with questions or concerns. After clinic hours (5pm-8am Friday-Friday and weekends) pt can call [phone] and ask for the warehouse man/oncologist special education curriculum specialist. Zen Pickering verbalized understanding of potential [...] medications given for home use after chemotherapy. He has an oral anti-emetic and is aware how and when to use. ASSESSMENT: Zen was awake, alert and tolerated treatment well. Port flushed with 20 cc's of NS and 500 units of heparin and de-accessed. PLAN: Return to clinic per routine. documented in this encounter Plan of Treatment Upcoming Encounters Date Type Department Care Team (Late st Contact Info) Description 05/31/2024 11:30 AM EST Office Visit Hematology/Oncolog y at [address] [phone] Tej Tipton MD [address] [facility] [address] HEMATOLOGY [place] [address] Stacy Valle APRN [facility] [place] [address] 06/01/2024 10:30 AM EST Scheduled View [place] [phone] 06/01/2024 11:00 AM EST Office [place] [phone] Luis E Chin MD [facility] [place] [address] 06/04/2024 8:30 AM EST Hospital Encounter [place] [phone] Rayshawn Suresh MD [facility] [place] [address] 06/04/2024 8:30 AM EST - 06/04/2024 1:05 PM EST Surgery [place] [address] Rayshawn Suresh MD [facility] [place] [address] @THORACOSCOPY, SURG; W PLEURODESIS (WRVU 10.83) Scheduled [...] over 2 Minutes, ONCE, 1 dose, On Fri02/29/20 at 0845, Alternative administration of IV push over 2 minutes is a recommendation from the reverse unit operator. Administer prior to chemotherapy., Routine Given 02/29/2020 9:48 AM EST 130 mg CISplatin (Platinol) 79 mg in sodium chloride 0.9% 329 mL chemo infusion 79 mg (rounded from 79.2 mg = 40 mg/m2/dose ? 1.98 m2 Treatment Plan BSA from Recorded weight), Intravenous, ONCE, 1 dose, On Fri02/29/20 at 0945, Administer over 60 Minutes, Warning Vesicant/Irritant Medication New Bag 02/29/2020 10:32 AM EST 79 mg 329 mL/hr dexamethasone (Decadron) tablet 10 mg 10 mg, Oral, ONCE, 1 dose, On Fri02/29/20 at 0845, Administer prior to chemotherapy, Routine Given 02/29/2020 9:47 AM EST 10 mg heparin, porcine 100 unit/mL flush 500 Units 500 Units, Intravenous, ONCE PRN, Starting on Fri02/29/20 at 0818, Until Fri02/29/20 at 1655, Line Care, Refer to Intravenous (IV) Procedure: Accessing Implanted Vascular Access Devices (654) procedure and/or Intravenous (IV) Job Aid: Adult Flushing & Catheter Care (0698) job aid for additional information regarding guidelines and administration., Routine Given 02/29/2020 11:37 AM EST 500 Units palonosetron (ALOXI) injection 0.25 mg 0.25 mg, Intravenous, ONCE, 1 dose, On Fri02/29/20 at 0845, Administer over 30 seconds. Administer prior to chemotherapy, Routine Given 02/29/2020 9:47 AM EST 0.25 mg sodium chloride 0.9 % (flush) flush 5-20 mL 5-20 mL, Intravenous, EVERY 1 MIN PRN, Starting on Fri02/29/20 at 0818, Until Fri02/29/20 at 1655, Line Care, Flush pertains to all indwelling lines. Flush per protocol found in the job aid using the link provided on this medication record. Refer to Intravenous (IV) Job Aid: Adult Flushing & Catheter Care (5265) job aid for additional information regarding guidelines and administration., Routine Given 02/29/2020 11:37 AM EST 20 mLs sodium chloride 0.9% infusion 1,000 mL, at 1,000 mL/hr, Intravenous, CONTINUOUS, Starting on Fri02/29/20 at 0845, Until Fri02/29/20 at 0944, Pre-CISplatin New Bag 02/29/2020 8:30 AM EST 1,000 mLs 1000 mL/hr sodium chloride 0.9% infusion 500 mL, at 500 mL/hr, Intravenous, CONTINUOUS, Starting on Fri02/29/20 at 1045, Until Fri02/29/20 at 1144, Post CISplatin New Bag 02/29/2020 10:30 AM EST 500 mLs 500 mL/hr documented in this encounter Care Teams Payroll And Benefits Specialist Relationship Specialty Start Date End Date Tiny Walters APRN [address] [place] [phone] PCP - General Family Medicine 12/01/19 04/07/24 documented as of this encounter
--- OUTSIDE RECORDS SUMMARY | 2024-05-31 01:27 | XMS_ITS | Encounter Summary ---
Author Organization [facility] Address [facility] [place] [address] Care Team Providers Care Physical Integration Practitioner Name Role Phone Tiny Walters APRN Primary Care Provider [phone]- [phone] Encounter Details Date Type Department Care Team (Late st Contact Info) Description 02/16/2020 8:00 AM EDT Office Visit Radiation Oncology at [address] [phone] Jose Martin Rae MD [facility] [place] [address] Tonsil cancer Social History Tobacco Use Types [...] Sign Reading Time Taken Comments Blood Pressure 113/68 02/16/2020 7:54 AM EDT Pulse 71 02/16/2020 7:54 AM EDT Temperature 36.7 ??C (98.1 ??F) 02/16/2020 7:54 AM ED T Respiratory Rate 18 02/16/2020 7:54 AM EDT Oxygen Saturation 100% 02/16/2020 7:54 AM EDT Inhaled Oxygen Concentration - - Weight 81.6 kg (180 lb) 02/16/2020 7:54 AM EDT Height - - Body Mass Index 28.19 02/11/2020 9:21 AM EDT documented in this encounter Progress Notes * Janeen Duarte RN - 02/16/2020 8:00 AM EDT Section of Radiation Oncology Contrast Information Safety [...] eGFR drawn within the past 45 days? If no, when will it be drawn? A creatinine less than or equal to [...] Kombiglyze, Metaglip, PrandiMet, Glugophage, Glumetza, Riomet, Metformin) No If yes, when was last dose taken? n/a 9. If patient is on any of the medications in question #10, consult with the ordering provider if the patient needs to stop the medication and if they will require further lab studies. * Jose Martin Rae MD - 02/16/2020 8:00 AM EDT Images from the original note were not included. Radiation Oncology Follow Up Patient Visit PATIENT NAME: Zen Pickering DATE OF : 1980 HISTORY OF PRESENT ILLNESS Zen Pickering is a 39 y.o. 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 He was seen by his PCP, and was placed on multiple rounds of antibiotics with minimal improvement. He subsequently developed a globus sensation accompanied by limited ability to swallow solids as well as progressive headaches. He was seen by Dr. Wilhelm (ENT at [facility]) in October of 2019 and was felt to have an acute tonsillitis, and was referred to Dr. Banuelos for management. A CT of the HN was performed on 11/25/19, demonstrating alarge right tonsillar mass with adenopathy in the right neck. He saw Dr. Banuelos via TH visit on 12/09/19, and further imaging and an in-person visit was recommended. On visit with Dr. Banuelos on 12/28/19 he was noted to have trismus, a lesion involving the right mobile tongue and right tonsil, and tongue deviation to the right. MRI confirmed findings concerning for a locally advanced tonsillar mal ignancy. He underwent an EUA with laryngoscopy and biopsy on 01/05/20. Further evaluation as per below. Staging & Therapy CT HN w/ contrast 11/25/19: heterogeneously enhancing right tonsillar mass. Pathologic appearing right level II adenopathy. Left thyroid cyst. MRI HN w/ contrast 12/28/19: 1. A 4.0 cm mass centered in the right palatine tonsil with significant involvement of the right side of the floor of the mouth, and extension back along the styloglossus and stylopharyngeus muscles,and into the right hypoglossus muscle. It abuts the right longus coli muscle with no evidence for such muscular invasion. 2. Concern for ruth metastasis to the largest right-sided lateral retropharyngeal lymph node, which is immediately posterior to the tumor. 3. Otherwise bilateral lymph nodes are indeterminate EUA with laryngoscopy and biopsy 01/05/20: -Findings: Normal larynx, hypopharynx, vallecula and base of tongue. Tumor noted in right tonsil involving the entire tonsillar fossa, abutting the superior right soft palate but not involving the soft palate, extending to the inferior tonsillar pole and into the right posterior floor of mouth palpable deeply at least 1 cm and abutting the right ventral tongue. -Pathology: --Right tonsil, biopsy: P16 positive (HPV-driven) squamous cell carcinoma. PET-CT 01/11/20: 1. Large FDG avid mass centered in the right upper pharyngeal and palatine tonsil region extending into the posterolateral right tongue muscle, consistent site of biopsy-proven right tonsillar malignancy. 2. FDG avid soft tissue fullness in the left upper pharyngeal tonsil region, highly suspicious for left tonsillar malignancy. 3. Small FDG avid lymph nodes in the right level 2 and 3 and left level 2 regions, highly suspicious for ruth metastases. 4. No distant sites of metastasis. MRI HN +/- contrast 02/09/20: Stability of the 4 cm mass centered in the right palatine tonsil withextensioninto the floor of mouth, soft palate and along extrinsic tongue muscles. Stable appearanceof the known lymphadenopathy. Interval History: Mr. Pickering returns for simulation. In the interval since our last visit he has undergone extraction of his wisdom teeth, as well as port and G tube placement. He has also undergone resection of his left tonsil due to concern regarding involvement, and this revealed HILARIO. His symptoms are stable. ECOG PS: 0 Grade ECOG PERFORMANCE STATUS [...] confined to bed or chair EXAM Vitals: 02/16/20 0754 BP: 113/68 Patient Position: Sitting Pulse: 71 Resp: 18 Temp: 36.7 ??C (98.1 ??F) TempSrc: Temporal SpO2: 100% Weight: 81.6 kg (180 lb) Physical Exam Constitutional: Appearance: He is well-developed. HENT: Mouth/Throat: Comments: Visual inspection of OC and OP revealed a right tonsillar mass with minimal involvement of the soft palate and no clear extension to the RMT. Fullness of the right posterior tongue appreciated. Altered sensation noted posterior right tongue, not anterior. Tongue deviates to right on extension. Eschar associated with left tonsillar fossa. Eyes: Pupils: Pupils are equal, round, and [...] cranial nerve deficit. Psychiatric: Behavior: Behavior normal. PROCEDURE Flexible laryngoscopy was performed. The right and left nares were anesthetized with aerosolized lidocaine, and the laryngoscope was passed with some difficulty on the left due to narrow nasal passages. The nasopharynx was visualized and was without masses or lesions. A right sided tonsillar mass with extension onto the base of tongue, without crossing midline, was evident. No involvement of the v allecula or pyriform sinus. HISTORY Allergies as of 02/16/2020 ??? (No Known Allergies) Past Medical History: Diagnosis Date ??? Asthma ??? Raynaud's disease ??? Tonsil cancer Past Surgical History: Procedure Laterality Date ??? IR G-TUBE PLACEMENT 02/11/2020 IR G-Tube Placement 02/11/2020 Jose Angel Choi MD [facility] INTERVENTIONL RAD ??? IR MEDIPORT PLACEMENT/EXCHANGE 02/11/2020 IR Mediport Placement 02/11/2020 Jose Angel Choi MD [facility] INTERVENTIONL RAD ??? PRO LARYNGOSCOPY, DIRCT, OP SCOPE, BIOPSY Bilateral 01/05/2020 LARYNGOSCOPY, MICROSCOPE, WITH BIOPSY (WRVU 3.55) performed by Yrn Banuelos MD at [facility] MAIN OR ??? PRO REMOVAL OF TONSILS, 12+ Y/O Left 01/28/2020 TONSILLECTOMY AGE 12 AND OVER (WRVU 3.45) performed by Yrn Banuelos MD at [facility] MAIN OR Social History Socioeconomic History ??? Marital status: Spouse name: None ??? Number of children: None ??? Years of education: None ??? Highest education level: None Occupational History ??? None Social Needs ??? Financial resource strain: None ??? Food insecurity Worry: None Inability: None ??? Transportation needs Medical: None Non-medical: None Tobacco Use ??? Smoking status: Never Smoker ??? Smokeless tobacco: Never Used Substance and Sexual Activity ??? Alcohol use: Yes Alcohol/week: 1.0 standard drinks Types: 1 Cans of beer per week Frequency: 2-4 times a month Drinks per session: 1 or 2 ??? Drug use: Never ??? Sexual activity: None Lifestyle ??? Physical activity Days per week: None Minutes per session: None ??? Stress: None Relationships ??? Social connections Talks on phone: None Gets together: None Attends muslim service: None Active member of club or organization: None Attends meetings of clubs or organizations: None Relationship status: None ??? Intimate partner violence Fear of current or ex partner: None Emotionally abused: None Physically abused: None Forced sexual activity: None Other Topics Concern ??? None Social History Narrative . Three children, Twins (boy and girl 9 years old) , two year old female. 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 No pertinent family history. ROS: I reviewed and agree with the nursing review of systems accompanying this encounter. The remainder of the comprehensive review of systems was negative with the exception of the pertinent positives and negatives noted above. MEDICATIONS Current Outpatient Medications on File Prior to Visit Medication Sig Dispense Refill ??? Ibuprofen 200 [...] 6 hours as needed for Pain. ??? oxyCODONE (Roxicodone) 5 mg/5 mL Solution [...] taking: Reported on 02/11/2020) 30 tablet 3 ??? albuteroL 90 mcg/actuation HFA Aerosol Inhaler Inhale 2 puffs into the lungs every 4 hours as needed for Wheezing. Use with spacer No current facility-administered medications on file prior to visit. IMAGING I have personally reviewed the imaging reports and images referenced in the oncologic hx and agree with the assessment as stated. Further pertinent imaging data below LABORATORY VALUES CONTRAINDICATIONS TO RADIOTHERAPY NO YES: Date, site, dose (women only) X Prior Radiotherapy X Collagen-Vascular dz X ASSESSMENT /PLAN HN CANCER Staging CT HN MRI HN PET-CT EUA w/ DL ; Pathologic evaluation of the primary Left tonsillectomy Further Staging None required Therapy Discussion Zen Pickering returns for simulation, and has completed all necessary pre- simulation requirements. We again discussed the rationale and logistics (including simulation, planning, and treatment) of definitive chemoradiotherapy. We discussed the risks of therapy, including but not limited to short term sequelae (fatigue, skin erythema, mucositis, dysphagia, ageusia, xerostomia, weight loss) and terminal supervisor sequelae (tissue fibrosis, lymphedema, terminal supervisor dysphagia potentially requiring a permanentfeeding tube, xerostomia, osteoradionecrosis, increased risk of dental caries, esophageal stricture, and the possibility of significant damage to soft tissue, bone or skin requiring surgical or medical intervention). Mr. Pickering expressed an understanding of these risks. The patient had a number of questions regarding optimal therapy and potential side effects. These questions were answered to his satisfaction Concurrent chemotherapy recommendations: planned per med onc Therapy Decision Proceed with simulation today Supportive Care Prophylactic feeding tube: placed Referral to Lap Runner / LOAN ORIGINATOR Dental Issues: s/p dental clearance OTHER ISSUES None Simulation was performed in anticipation of radiotherapy for squamous cell carcinoma of the head and neck. The consent was reviewed with the physician and signed by both the patient and physician. Anintravenous line was placed in anticipation of contrast administration. The patient was then brought to the simulation room and a time-out was performed per protocol. he was then placed on the simulation table and a custom cushion was constructed for his neck. A custom aquaplast mask was then created. The simulation CT scan was performed with contrast, images were reviewed and approved by the physician, and tattoos were created by the therapy staff as indicated. The patient tolerated the procedure without difficulty, and was given a time to return to start radiotherapy. documented in this encounter Plan of Treatment Upcoming Encounters Date Type Department Care Team (Late st Contact Info) Description 05/31/2024 11:30 AM EST Office Visit Hematology/Oncolog y at [address] [phone] Tej Tipton MD [address] [facility] [address] HEMATOLOGY [place] [address] Stacy Valle APRN [facility] [place] [address] 06/01/2024 10:30 AM EST Scheduled View [place] [address] 06/01/2024 11:00 AM EST Office [place] [phone] Luis E Chin MD [facility] [place] [address] 06/04/2024 8:30 AM EST Hospital Encounter [place] [address] Rayshawn Suresh MD [facility] [place] [address] 06/04/2024 8:30 AM EST - 06/04/2024 1:05 PM EST Surgery Main Operating Room [facility] [place] [address] Rayshawn Suresh MD [facility] [place] [address] @THORACOSCOPY, SURG; W PLEURODESIS (WRVU 10.83) Scheduled [...] tonsil documented in this encounter Care Teams Physical Integration Practitioner Relationship Specialty Start Date End Date Tiny Walters APRN [address] [place] [phone] PCP - General Family Medicine 12/01/19 04/07/24 documented as of this encounter
--- OUTSIDE RECORDS SUMMARY | 2024-05-31 01:27 | XMS_ITS | Encounter Summary ---
[place] [address] Care Team Providers Care Pilot Plant Supervisor Name Role Phone Tiny Walters APRN Primary Care Provider [phone]- [phone] Reason for Visit * Auth/Cert Specialty Diagnoses / Procedures Referred By Fritz lanier Referred To Contact Diagnoses Tonsil cancer Procedures VENOUS ACCESS PLACEMENT PERCUTANEOUS GASTROSTOMY Referral ID Status Reason Start Date Expiration Date Visits Re quested Visits Authorized [id number] 1 1 Encounter Details Date Type Department Care Team (Late st Contact Info) Description 02/11/2020 10:42 AM EDT - 02/11/2020 5:05 PM EDT Hospital Encounter [place] [phone] Donnie Lema MD [address] [place] [address] [address] [place] [id number] Discharge Disposition: Home Social History Tobacco Use [...] Sign Reading Time Taken Comments Blood Pressure 126/81 02/11/2020 4:00 PM EDT Pulse 59 02/11/2020 12:14 PM EDT Temperature 36.1 ??C (97 ??F) 02/11/2020 3:22 PM EDT Respiratory Rate 16 02/11/2020 4:00 PM EDT Oxygen Saturation 99% 02/11/2020 4:00 PM EDT Inhaled Oxygen Concentration - - [...] of this encounter Progress Notes * Promise Lima RN - 02/11/2020 5:05 PM EDT Patient [...] EST Office Visit Hematology/Oncolog y at [address] [address] Tej Tipton MD [address] [facility] [address] HEMATOLOGY & [place] [address] Stacy Valle APRN [facility] [place] [address] 06/01/2024 10:30 AM EST Scheduled View [place] [address] 06/01/2024 11:00 AM EST Office [place] [phone] Luis E Chin MD [facility] [place] [address] 06/04/2024 8:30 AM EST Hospital Encounter Main [place] [phone] Rayshawn Suresh MD [facility] [place] [address] 06/04/2024 8:30 AM EST - 06/04/2024 1:05 PM EST Surgery [place] [address] Rayshawn Suresh MD [facility] [place] [address] @THORACOSCOPY, SURG; W PLEURODESIS (WRVU 10.83) Scheduled [...] Prophylaxis 1400 (Given - Provid er: Jigar Robbins CRNA) Continuous Medication Order 02/09/2020 02/10/2020 02/11/2020 [...] Routine documented in this encounter Care Teams Pilot Plant Supervisor Relationship Specialty Start Date End Date Tiny Walters APRN [address] [place] [phone] PCP - General Family Medicine 12/01/19 04/07/24 documented as of this encounter
--- OUTSIDE RECORDS SUMMARY | 2024-05-31 01:27 | XMS_ITS | Encounter Summary ---
Author Organization [facility] Address [facility] [place] [address] Care Team Providers Care Cage Manager Name Role Phone Tiny Walters APRN Primary Care Provider +1- [phone] Encounter Details Date Type Department Care Team (Late st Contact Info) Description 03/01/2020 3:30 PM EST Office Visit Radiation Oncology at [address] [phone] Jose Martin Rae MD [facility] [place] [address] Tonsil cancer Social History Tobacco Use Types [...] Sign Reading Time Taken Comments Blood Pressure 136/74 03/01/2020 2:58 PM EST Pulse 84 03/01/2020 2:58 PM EST Temperature 37 ??C (98.6 ??F) 03/01/2020 2:58 PM EST Respiratory Rate 18 03/01/2020 2:58 PM EST Oxygen Saturation 100% 03/01/2020 2:58 PM EST Inhaled Oxygen Concentration - - Weight 83.5 kg (184 lb) 03/01/2020 2:58 PM EST Height - - Body Mass Index 28.81 02/29/2020 8:10 AM EST documented in this encounter Progress Notes * Jose Martin Rae MD - 03/01/2020 3:30 PM EST ON TREATMENT VISIT NOTE Zen Pickering is a 39 y.o. 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 Definitive chemoradiotherapy. Current treatment dose: 4 Gy in 2 fractions. Anticipated total dose: 70 Gy in 35 fractions. Concomitant Therapy: Y ONC BCA CHEMO (AMB) 02/29/2020 Day, Cycle Day 1, Cycle 1 CISplatin (Platinol) IV 40 mg/m2/dose Evaluation of Port Verification Films: PORT films have been reviewed, please see ARIA for details. Changes in medical condition Pain: denies Secretions/Dryness: no issues Swallowing Function: no issues Skin: no issues Nutrition Assessment: Weight : 83.5 kg initial Change: NA Objective: Vitals: 03/01/20 1458 BP: 136/74 Patient Position: Sitting Pulse: 84 Resp: 18 Temp: 37 ??C (98.6 ??F) TempSrc: Temporal SpO2: 100% Weight: 83.5 kg (184 lb) SKIN: no skin erythema MUCOSA: no mucositis [...] at least 8 times daily ?? Alimentation: quality process auditor following ?? Weight stable, all by mouth [...] EST Office Visit Hematology/Oncolog y at [address] [phone] Tej Tipton MD [facility] [address] HEMATOLOGY & [place] [address] Stacy Valle APRN [facility] [place] [address] 06/01/2024 10:30 AM EST Scheduled View Only [place] [address] 06/01/2024 11:00 AM EST Office Visit [place] [phone] Luis E Chin MD [facility] [place] [address] 06/04/2024 8:30 AM EST Hospital Encounter Main [place] [address] Rayshawn Suresh MD [facility] [place] [address] 06/04/2024 8:30 AM EST - 06/04/2024 1:05 PM EST Surgery [place] [address] Rayshawn Suresh MD [facility] [place] [address] @THORACOSCOPY, SURG; W PLEURODESIS (WRVU 10.83) Scheduled [...] tonsil documented in this encounter Care Teams Cage Manager Relationship Specialty Start Date End Date Tiny Walters APRN [address] [place] [phone] PCP - General Family Medicine 12/01/19 04/07/24 documented as of this encounter
--- OUTSIDE RECORDS SUMMARY | 2024-05-31 01:27 | XMS_ITS | Encounter Summary ---
Author Organization [facility] Address [facility] [place] [address] Care Team Providers Care Meals On Wheels Driver Name Role Phone Tiny Walters APRN Primary Care Provider +1- [phone] Reason for Visit * Consultation (Routine) - Specialty Diagnoses / Procedures Referred By Fritz lanier Referred To Contact Radiation Oncology Diagnoses Tonsil cancer Procedures Simulation for Radiation Therapy Planning Jose Martin Rae MD [facility] [place] [address] [facility] [[email or web address]] Rad Onc Office [address] [place] [phone] Referral ID Status Reason Start Date Expiration Date V isits Requested Visits Authorized [id number] Consult, Test & Treat 02/09/2020 04/27/2020 35 35 Encounter Details Date Type Department Care Team (Late st Contact Info) Description 02/16/2020 8:30 AM EDT Ancillary Appointment Radiation Oncology at [address] [phone] Jose Martin Rae MD [facility] [place] [address] Social History Tobacco Use Types Packs/Day Years [...] this encounter Patient Instructions * Patient Instructions* Janeen Duarte RN - 02/16/2020 8:30 AM EDT General instructions for Radiation therapy Radiation Oncology Team ?? Radiation Oncologist -The doctor who will direct all aspects of your radiation treatments ?? Nurse Practitioner - They assist your doctor in treating your side effects and with follow up appointments. ?? Registered Nurse - They vinay you in learining about you radaiton treatments, , and things you can do to help manage the side effects. ?? Production Manager - They take the doctors radiation prescription and customize it into doses (or days of treatments) specific for you. ?? Physicist - They make sure all the machines are operating correctly and double check calculations for your treatment. ?? Radiation Technologists - They operate the machines which deliver your radiation. You see them daily and they schedule your treatments. ?? Simulation CT/ Planning Session- Your first step after deciding to start radiation treatments is done on a special CT scanner in radiation oncolcgy. The images obtained are used to plan your treatments. This may be scheduled the same day you meet your doctor or in a separate visit. This usually takes between 30 minutes to one hour. You may need an IV for contrast. If so our nurse will let you know that day along with any other special instructions. During this visit we may rk Your skin with a tiny ???tattoos?? , take pictures or make special molds or masks to help us place you in the exact treatment position every day. After this session it takes up to two weeks for your plan to be developed and checked by your doctor, the dosimetrists and the physicist. ?? Skin Care - Your nurse/physician will provide you with the necessary creams and supplies as you need them during your treatments. Please make sure to keep the treatment area clean and dry. Be sure to notice if your clothing rubs or digs into the treatment area and try to wear clothes which are less abrasive, like cotton or loose fitting. Do not use harsh soaps, ointments, deodorants or tapes in the treatment area unless directed by your nurse or doctor. Keep the treatment area out of the sun during treatments. ?? General precautions- DO NOT USE heating pads, hot water bottles, hot poultices, heat lamps, heat in any form, or ice packs to the area of your body being treated. It is common to start feeling fatigue after a few weeks of being treated. You can help minimize this by getting regular exercise or walking and getting plenty of rest. In general a well balanced diet is recommended. The portfolio mgr and nurse will inform you of any special diet requirements. Avoid shaving the treatment area with a razor. If you must shave use an electric razor. Our Contact numbers Section of Radiation Oncology Our normal business hours are: Friday - Friday: 8:00 AM to 5:00 PM [facility]: [facility]: If you have questions about your radiation appointments please ask to speak to one of our secretarystaff. If you have questions for a nurse/doctor about radiation treatments, radiation side effects or you are not feeling well it is best to call early in the day. This allows a nurse to return your call by5 PM the same day. If you call after 4 PM, a nurse will return your call by 5 PM the following day unless it is emergent. If you experience any of the following you need to seek emergency care immediately by calling 911 1. Sudden and unexpected breathing difficulty without any exertion 2. Sudden onset of chest pain 3. Sudden onset of severe pain or uncontrolled pain 4. Sudden onset of severe weakness and/or unable to ambulate 5. Sudden new onset of a seizure 6. Fall resulting in injury ?? A Radiation Oncology doctor is motion graphics designer after our normal hours and on weekends. ?? To call for urgent medical issues from radiation treatments that can not wait until normal business hours: ?? Call for either location and have the fur trimming machine operator page the Radiation Oncologist motion graphics designer. documented in this encounter Plan of Treatment Upcoming Encounters Date Type Department Care Team (Late st Contact Info) Description 05/31/2024 11:30 AM EST Office Visit Hematology/Oncolog y at [address] [phone] Tej Tipton MD [address] [facility] HEMATOLOGY [place] [address] Stacy Valle APRN [facility] [place] [address] 06/01/2024 10:30 AM EST Scheduled View Only Radiation Oncology at [place] [phone] 06/01/2024 11:00 AM EST Office Visit Radiation Oncology at [place] [phone] Luis E Chin MD [facility] [place] [address] 06/04/2024 8:30 AM EST Hospital Encounter [place] [phone] Rayshawn Suresh MD [facility] [place] [address] 06/04/2024 8:30 AM EST - 06/04/2024 1:05 PM EST Surgery [place] [phone] Rayshawn Suresh MD [facility] [place] [address] @THORACOSCOPY, SURG; W PLEURODESIS (WRVU 10.83) Scheduled Orders Name Type Priority Associated Diagnoses Orde r Schedule Simulation for Radiation Therapy Planning Procedures Routine Tonsil cancer Ordered: 02/08/2020 Scheduled Procedures Name Priority Associated Diagnoses Date/Ti [...] on filedocumented in this encounter Care Teams Meals On Wheels Driver Relationship Specialty Start Date End Date Tiny Walters APRN [address] [place] [phone] PCP - General Family Medicine 12/01/19 04/07/24 documented as of this encounter
--- OUTSIDE RECORDS SUMMARY | 2024-05-31 01:27 | XMS_ITS | Encounter Summary ---
[place] [address] Care Team Providers Care Fire Safety Inspector Name Role Phone Tiny Walters APRN Primary Care Provider +1- [phone] Reason for Visit * Auth/Cert Specialty Diagnoses / Procedures Referred By Fritz lanier Referred To Contact Diagnoses Tonsil cancer Procedures VENOUS ACCESS PLACEMENT PERCUTANEOUS GASTROSTOMY Referral ID Status Reason Start Date Expiration Date Visits Re quested Visits Authorized [id number] 1 1 Encounter Details Date Type Department Care Team (Late st Contact Info) Description 02/11/2020 10:00 AM EDT Clinical Support [place]ematology [place] [address] Tonsil cancer Social History [...] Progress Notes * Tonya Machado RD - 02/11/2020 10:00 AM EDT [facility] Initial Dietitian Assessment Seen By: Tonya Machado RD LD Referred by: HN team Reason for visit: g-tube teach Patient and diagnosis: Zen Pickering is a 39-year-old man with 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 HPI: Patient Active Problem List Diagnosis Code ??? 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 Raynaud's syndrome I73.00 Meds: reviewed Labs: n/a Estimated body mass index is 28.19 kg/m?? as calculated from the following: Height as of an earlier encounter on 02/11/20: 170.2 cm (5' 7). Weight as of 02/16/20: 81.6 kg (180 lb). Wt Readings from Last 3 Encounters: 02/16/20 81.6 kg (180 lb) 02/11/20 81.2 kg (179 lb) 01/24/20 82.6 kg (182 lb) denies weight loss Wt Hx: UBW: % UBW: IBW: +/- 10% % IBW: ___ Edema ___ Ascites ___Muscle wasting Nutrition Assessment: Enteral Nutrition: G-tube placed 02/10 by IR - 16 Indonesian balloon retained g-tube Food Intake: Reports normal appetite and good oral intake at this time. Taking smaller bites and choosing softer foods that are easier to chew. Teas, vitamins, or other nutritional supplements: n/a Food allergies or avoidances: denies Appetite: good Nausea: n/a Vomiting: n/a Chewing: some difficulty, smaller bites, softer foods 2/2 below Dentition: wisdom teeth removed last week Swallowing: choosing softer foods Taste Changes: n/a Bowels: did not discuss Food availability/purchasing, meal [...] diet consistency: as tolaterated ? Enteral Nutrition: g-tube teaching provided; discussed formula options; encouraged daily water flush; provided 60 ml syringe and flexi-tracks Monitoring and Evaluation: Will follow up weekly during treatment. documented in this encounter Plan of Treatment Upcoming Encounters Date Type Department Care Team (Late st Contact Info) Description 05/31/2024 11:30 AM EST Office Visit Hematology/Oncolog y at [address] [phone] Tej Tipton MD [address] [facility] HEMATOLOGY & [place] [address] Stacy Valle APRN [facility] [place] [address] 06/01/2024 10:30 AM EST Scheduled View Only Radiation Oncology at [place] [phone] 06/01/2024 11:00 AM EST Office Visit [place] [phone] Luis E Chin MD [facility] [place] [address] 06/04/2024 8:30 AM EST Hospital Encounter Main Operating Room [place] [phone] Rayshawn Suresh MD [facility] [place] [address] 06/04/2024 8:30 AM EST - 06/04/2024 1:05 PM EST Surgery [place] [address] Rayshawn Suresh MD [facility] [place] [address] @THORACOSCOPY, SURG; W PLEURODESIS (WRVU 10.83) Scheduled [...] tonsil documented in this encounter Care Teams Fire Safety Inspector Relationship Specialty Start Date End Date Tiny Walters APRN [address] [place] [phone] PCP - General Family Medicine 12/01/19 04/07/24 documented as of this encounter
--- OUTSIDE RECORDS SUMMARY | 2024-05-31 01:27 | XMS_ITS | Encounter Summary ---
Author Organization [facility] Address [facility] [place] [address] Care Team Providers Care Casting And Locker Room Servicer Name Role Phone Tiny Walters APRN Primary Care Provider +1- [phone] Reason for Visit * Speech Therapy (Routine) - Specialty Diagnoses / Procedures Referred By Fritz lanier Referred To Contact Diagnoses Tonsil cancer Gume Christy MD [facility] [place] [address] Referral ID Status Reason Start Date Expiration Date V isits Requested Visits Authorized [id number] Evaluate and Treat 01/24/2020 07/22/2020 12 12 Encounter Details Date Type Department Care Team (Latest Contact Info) Description 02/23/2020 10:30 AM EDT Office Visit Hematology/Oncology at [address] [phone] Carrie Jacob SLP Tonsil cancer; Dysphagia, oropharyngeal phase Social History [...] as of this encounter Miscellaneous Notes * Initial Evaluation - Carrie Jacob SLP - 02/23/2020 10:30 AM EDTSummary: WINDOWS SECURITY ANALYST Clinical Swallow Evaluation Speech Language Pathology Clinical Swallow Evaluation Patient Profile: Zen P Raheel is a 39 y.o. 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 HPI: Patient Active Problem List Diagnosis Code [...] (179 lb) 01/24/20 82.6 kg (182 lb) Denies weight loss Per RD, reports normal appetite and good oral intake, taking smaller bites and choosing softer foods that are easier to chew. Chewing: some difficulty, smaller bites, softer foods Dentition: wisdom teeth removed last week Swallowing: choosing softer foods (pastas, soft and bite sized meats, lasagna) Prior Level of Swallow Function: WFL Subjective: Patient here with spouse CJ today, states he does not have major concerns with swallowing at this time but does state he feel more difficulties with his jaw and opening this wide enough. Reports ongoing issues with difficulties opening his mouth which does effect chewing ability; patient agreeable to motivational interview with education on prophylactic swallowing exercise / assessment of baseline swallowing abilities, as well as assessment and education re: trismus management and expectations. Objective: Pain: 1-2/10 R ear, typically 7-8/10 without advil Respiratory Status: Room air Vision: WFL per pt Hearing: WFL No changes noted Current Diet: No diet orders on file Feeding / Oral Care Status: Pt is independent Cognitive-Linguistic Status: alert, oriented to person, place, and time Follows Commands: Follows multi-step commands Positioning: Pt up to chair Oral / Laryngeal Mechanism Clinical Assessment: ?? Lingual: Slight deviation to R upon protrusion, otherwise WFL ?? Labial / Buccal: WFL ?? Velar: WFL ?? Sensation: WFL ?? Vocal fold function and airway protection: WFL per informal assessment ?? Speech Intelligibility: WFL ?? Mucosa: WFL ?? Jaw: ?? Trismus: Yes ?? REYNA: 31.75 mm ?? Trismus Severity - Mild (30-34 mm) (Jesus et al, 2006) ?? Lateral Excursion: [place] of Care[place]) ?? Dentition: present and adequate ?? Oral Hygiene: WFL ?? Osteoradionecrosis (ORN) Risk Factors: Yes - Pre-radiation dental extraction in the radiation field - Planned high radiotherapy dosages (>60 Gys) Bolus Presentation(s) ?? Thin liquid via cup for YSP [place] Swallow Protocol (Remyr et al, 2014) Results: Pass [Complete, uninterrupted drinking of entire 3 oz water without overt s/sx aspiration during or after administration] Oral Preparatory Phase ?? Mastication: Reduced secondary to mild trismus ?? Oral Transit: Likely WFL ?? Bolus Cohesion: Likely WFL ?? Labial Seal / Loss: None ?? Oral Stasis: None Pharyngeal Phase ?? Laryngeal Elevation: Likely WFL ?? Vocal quality change: None ?? Cough / throat clear: None ?? Pt. complaint of food/pills/liquids feeling 'stuck': Occasional (infrequent) able to clear with thin liquid wash ?? Patient gestures to pharyngeal (vs sternal) area when describing globus ?? Fatigue across trials: No per pt report ?? Respiratory rate and respiratory swallow pattern: WFL Esophageal Phase ?? Appears to be WFL, No overt clinical s/s of esophageal phase dysphagia noted during this evaluation Standardized Assessment(s) MD Bobby Dysphagia Inventory [MDADI], a validated and reliable self- administered questionnaire designed specifically for evaluating the impact of dysphagia on the QOL of patients with head and neck cancer (Zenaida et al 2001), was administered: Global Score: 3 Scores range from 1 (Extremely low functioning) to 5 (Extremely high functioning) Composite Score: 87.4 Scores range from 20 (Extremely low functioning) to 100 (High functioning) The [place] Trismus Questionnaire [GTQ] is a multidimensional, self- administered, trismus-specific questionnaire used to measure trismus and its treatment outcomes when appropriate. Items 1-23: Overall/General Issues 51/115 Items 16-20: Facial Pain in Past Week 01/20 Worst facial pain in last week: 06/30 Location: middle face - Right; neck - Right Items 21-23: Mouth Opening Ability 10/10 Education Addressed: - Oropharyngeal swallowing mechanism anatomy/physiology, trismus s/sx and self- monitoring techniques - Swallowing exercise physiology and recommended prophylactic exercise specific to swallowing mechanism in context of patient's diagnoses and planned chemoRT - Compensatory Techniques: food texture modifications, alternating solids/liquids, reduced rate/volume Pt was able to demonstrate return of reviewed exercises and comprehension of strategies as outlinedtoday - Instrumental Assessment Options if warranted during or after treatment: VFSS/MBSS, FEES Patient and spouse educated on results and recommendations, and verbalized understanding. Assessment: Patient demonstrates mild oropharyngeal phase dysphagia as characterized by occasional/infrequent pharyngeal globus with level 6/7 solids, reduced mastication secondary to mild trismus with REYNA measured at 31.75 mm at his baseline today. Provided patient with verbal and written information re: proactive prophylactic swallowing exerciseregimen with rationale, as well as education re: trismus s/sx and options for management. Per motivational interview, patient is most concerned with effects of trismus at this time, does not feel inclined to address pharyngeal globus until after cancer treatment; discussed expectations for trismus intervention pending MD approval and various risk factors prior to beginning trismus intervention once chemoRT has been completed, importance of reviewed aspiration precautions and prophylactic exercise during course of chemoRT, and continued development of swallowing HEP as deemed appropriate. Diagnosis: Oropharyngeal phase dysphagia Recommendations: Instrumentation: N/A at this time; TBD during subsequent visit(s) Diet: Level 6 soft and bite-sized solids, Level 0- thin liquids as tolerated PO medications: whole with sip of liquid Aspiration precautions: Upright position during meals and for at least 30 mins following Small sips and bites while eating Slow rate; swallow between bites Patient will continue to benefit from ongoing WINDOWS SECURITY ANALYST services during current course of cancer treatment, with recommended follow-up 3 weeks post completion of treatment course. Speech Therapy Goals: (To be met by discharge) Pt will demonstrate comprehension of trismus management techniques during course of cancer treatment and trismus HEP once treatment has been completed, as appropriate. Pt/carepartner will be independent with aspiration precautions, diet texture modifications, and safe/efficient swallowing strategies as outlined. Pt will tolerate least restrictive diet textures/consistencies [...] of Swallowing [FEES] as deemed necessary. Plan: Discussed follow-up visit in 2 weeks. Pt./family are in agreement with treatment plan. Thank you for this consult. Please feel free to contact me with any questions or concerns regarding Mr. Pickering's care. Carrie Jacob MA CCC-WINDOWS SECURITY ANALYST Speech-Language Pathologist [email or web address] documented in this encounter Plan of Treatment Upcoming Encounters Date Type Department Care Team (Late st Contact Info) Description 05/31/2024 11:30 AM EST Office Visit Hematology/Oncolog y at [address] [phone] Tej Tipton MD [address] [place] [address] DR HEMATOLOGY [place] [address] Stacy Valle APRN [facility] [place] [address] 06/01/2024 10:30 AM EST Scheduled View [place] [phone] 06/01/2024 11:00 AM EST Office Visit [place] [phone] Luis E Chin MD [facility] [place] [address] 06/04/2024 8:30 AM EST Hospital Encounter [place] [phone] Rayshawn Suresh MD [facility] [place] [address] 06/04/2024 8:30 AM EST - 06/04/2024 1:05 PM EST Surgery [place] [address] Rayshawn Suresh MD [facility] [place] [address] @THORACOSCOPY, SURG; W PLEURODESIS (WRVU 10.83) Scheduled [...] Speech Therapy Outpatient Referral Routine Tonsil cancer Ordered: 01/24/2020 documented as of this encounter Visit Diagnoses Diagnosis Tonsil cancer Malignant neoplasm of tonsil Dysphagia, oropharyngeal phase documented in this encounter Care Teams Casting And Locker Room Servicer Relationship Specialty Start Date End Date Tiny Walters APRN [address] [place] [phone] PCP - General Family Medicine 12/01/19 04/07/24 documented as of this encounter
--- OUTSIDE RECORDS SUMMARY | 2024-05-31 01:27 | XMS_ITS | Encounter Summary ---
Author Organization [facility] Address [facility] [place] [address] Care Team Providers Care Bowling Ball Marker Name Role Phone Tiny Walters APRN Primary Care Provider +1- [phone] Encounter Details Date Type Department Care Team (Late st Contact Info) Description 03/01/2020 2:30 PM EST Office Visit Hematology/Oncology at [address] [phone] Elli Dunaway APRN [facility] [place] [place] [address] [address] Social History Tobacco [...] Progress Notes * Elli Dunaway APRN - 03/01/2020 2:30 PM EST Patient briefly seen for evaluation of G-tube site. He is having copious michael drainage around G tubesite and he has a 2-3cm raised erythematous area below tube that is firm to touch. He has been having shooting pains at the G tube site. He thought he may just need stitches removed but it appearshe may have another issue. Will refer him back to IR at [facility] for evaluation of G-tube. Appointment set up for tomorrow am. He is agreeable. He denies having any fevers or chills at this time. documented in this encounter Plan of Treatment Upcoming Encounters Date Type Department Care Team (Late st Contact Info) Description 05/31/2024 11:30 AM EST Office Visit Hematology/Oncolog y at [address] [phone] Tej Tipton MD [address] [facility] [address] HEMATOLOGY & [place] [address] Stacy Valle APRN [facility] [place] [place] [address] 06/01/2024 10:30 AM EST Scheduled View Only [place] [phone] 06/01/2024 11:00 AM EST Office Visit [place] [phone] Luis E Chin MD [facility] [place] [address] 06/04/2024 8:30 AM EST Hospital Encounter Main [place] [address] Rayshawn Suresh MD [facility] [place] [address] 06/04/2024 8:30 AM EST - 06/04/2024 1:05 PM EST Surgery [place] [phone] Rayshawn Suresh MD [facility] [place] [address] @THORACOSCOPY, SURG; W PLEURODESIS (WRVU 10.83) Scheduled [...] Visit Diagnoses Diagnosis Gastrostomy tube in place documented in this encounter Care Teams Bowling Ball Marker Relationship Specialty Start Date End Date Tiny Walters, BATSHEVA [address] [place] [phone] PCP - General Family Medicine 12/01/19 04/07/24 documented as of this encounter
--- OUTSIDE RECORDS SUMMARY | 2024-05-31 01:27 | XMS_ITS | Encounter Summary ---
Author Organization [facility] Address [facility] [place] [address] Care Team Providers Care Staffing Executive Name Role Phone Tiny Walters APRN Primary Care Provider +1- [phone] Encounter Details Date Type Department Care Team (Late Contact Info) Description 02/29/2020 Notes Only Hematology/Oncology at [address] [phone] Alyse Kirk MSW OFFICE OF CARE MANAGEMENT [...] Progress Notes * Alyse Kirk MSW - 02/29/2020 9:29 AM EST Follow up with pt during his first infusion visit today. Pt indicated he is anxious to get his treatments started. They have had 2 quieter weeks prior to today -the calm before the storm. He indicated his and children are doing fairly well. He feels well supported by family and friends. Offered support. Pt did not identify any new needs today. Reminded pt of [employer] availability and will follow for support and resources. documented in this encounter Plan of Treatment Upcoming Encounters Date Type Department Care Team (Late Contact Info) Description 05/31/2024 11:30 AM EST Office Visit Hematology/Oncolog y at [address] [phone] Tej Tipton MD [address] [facility] HEMATOLOGY & [place] [address] Stacy Valle APRN [facility] [place] [address] 06/01/2024 10:30 AM EST Scheduled View [place] [phone] 06/01/2024 11:00 AM EST Office [place] [phone] Luis E Chin MD [facility] [place] [address] 06/04/2024 8:30 AM EST Hospital Encounter [place] [phone] Rayshawn Suresh MD [facility] [place] [address] 06/04/2024 8:30 AM EST - 06/04/2024 1:05 PM EST Surgery [place] [address] Rayshawn Suresh MD [facility] [place] [address] @THORACOSCOPY, SURG; W PLEURODESIS (WRVU 10.83) Scheduled [...] on filedocumented in this encounter Care Teams Staffing Executive Relationship Specialty Start Date End Date Tiny Walters APRN [address] [place] [phone] PCP - General Family Medicine 12/01/19 04/07/24 documented as of this encounter
--- OUTSIDE RECORDS SUMMARY | 2024-05-31 01:27 | XMS_ITS | Encounter Summary ---
Author Organization [facility] Address [facility] [place] [address] Care Team Providers Care Fast Food Cook Name Role Phone Tiny Walters APRN Primary Care Provider +1- [phone] Reason for Visit * Reason Onset Date Comments Follow-up 03/01/2020 Encounter Details Date Type Department Care Team (Late st Contact Info) Description 03/01/2020 Telephone Hematology/Oncology at [address] [phone] Sarah Dunne, RN Follow-up Social History Tobacco Use Types [...] encounter Miscellaneous Notes * Telephone Encounter - Sarah Dunne RN - 03/01/2020 3:45 PM EST Saw Zen Hurst Raheel while he was here for XRT. He reports he had an uneventful night after his first dose of Cisplatin yesterday. He reports some nausea and used antiemetic, compazine, with good effect. He is voiding frequently and staying well hydrated. He was given our phone number and Willacy'sphone number if he should have any questions or concerns. Elli Dunaway NP assessed G-tube site which is reddened and has increased draining. She advised IR should assess site and remove sutures if needed. Called IR, they are aware and expecting patient tomorrow morning at 3Z. Pt and are aware. documented in this encounter Plan of Treatment Upcoming Encounters Date Type Department Care Team (Late st Contact Info) Description 05/31/2024 11:30 AM EST Office Visit Hematology/Oncolog y at [address] [phone] Tej Tipton MD [address] [facility] HEMATOLOGY & [place] [address] Stacy Valle APRN [facility] [place] [address] 06/01/2024 10:30 AM EST Scheduled View [place] [phone] 06/01/2024 11:00 AM EST Office [place] [address] Luis E Chin MD [facility] [place] [address] 06/04/2024 8:30 AM EST Hospital Encounter [place] [address] Rayshawn Suresh MD [facility] [place] [address] 06/04/2024 8:30 AM EST - 06/04/2024 1:05 PM EST Surgery [place] [phone] Rayshawn Suresh MD [facility] [place] [address] @THORACOSCOPY, SURG; W PLEURODESIS (WRVU 10.83) Scheduled [...] on filedocumented in this encounter Care Teams Fast Food Cook Relationship Specialty Start Date End Date Tiny Walters APRN [address] [place] [phone] PCP - General Family Medicine 12/01/19 04/07/24 documented as of this encounter
--- OUTSIDE RECORDS SUMMARY | 2024-05-31 01:28 | XMS_ITS | Encounter Summary ---
Author Organization [facility] Address [facility] [place] [address] Care Team Providers Care Compensation Director Name Role Phone Tiny Walters APRN Primary Care Provider +1- [phone] Reason for Visit * Consultation (Routine) - Closed Specialty Diagnoses / Procedures Referred By Fritz lanier Referred To Contact Otolaryngology Diagnoses acute right sided Tonsillitis patient on Levaquin to prevent any rupture Eros Wilhelm MD [address] [place] [address] Yrn Banuelos MD [facility] [place] [address] Referral ID Status Reason Start Date Expiration Date V isits Requested Visits Authorized [id number] Closed Consult, Test & Treat 12/01/2019 11/30/2020 1 1 Encounter Details Date Type Department Care Team (Latest Contact Info) Description 12/09/2019 10:30 AM EDT TH Visit (TeleHealth) [place] [address] Yrn Banuelos MD [facility] DR [place] [address] Tonsillar tumor (Primary Dx) Social History Tobacco Use Types Packs/Day Years Used Date Smoking Tobacco: Never Assessed Sex and Gender Information Value Date Recorded Sex Assigned at Not on file Gender Identity Not on file Sexual Orientation Not on file documented as of this encounter Progress Notes * Yrn Banuelos MD - 12/09/2019 10:30 AM EDT TELEHEALTH VISIT ENCOUNTER 12/09/19 Time of encounter: 10:26 Duration of encounter: 40 minutes, which include review of medical chart, relevant imaging, blood tests as well as coordination of care Telehealth visit consent was reviewed with the patient: This is a telehealth visit. The visit will be billed to your insurance carrier. You may be responsible for any co-pay or call insurance is required by your insurance carrier. Risks of telemedicine include poor temporary receptionist limiting medical decision making by your provider, delays in treatment from equipment failure, and inability to complete a full evaluation [which may require an office visit]. Benefits include the ability to receive care outside of our office, thus limiting your need for displacement. Patient was in agreement with proceeding. Patient identity was confirmed and patient agreed to proceed with the interaction and treatment, ifnecessary. Background: This previously healthy 39-year-old male is referred semi-urgently by in regards to consideration of a semiurgent right-sided tonsillectomy. Patient reports that he developed the sensation of having a mass/lesion/discomfort on the right side of his throat about June 2019. He did not experience any real pain but felt that the discomfort would come and go. He was seen on a number of occasions by his PCP and placed on different courses of antibiotics with some but limited improvement. He did not experience any fevers, chills, sweats. He has reported more recently the sensation that there is something in the way when he tries to swallow, however this has not limited his ability to swallow. He reports that his has noticed that he is a very heavy snorer. He thinks he has had this for some time but he thinks that this is much worse than it used to be. He feels partially rested when he wakes in the morning feeling that this is also related to his busy schedule as well as taking careof his 3 children. He does not report having particular issues with his tonsils in the past but does state that he hashad some tonsil infections in the past. In the last 6 weeks or so he has had occasional headaches that radiate to the right denominational region. He denies any referred otalgia. He has not noticed any hemoptysis. He has not been aware of any significant mass in his neck however he does feel like there is something in the upper neck below his right jaw. This is not painful. He also notes that the right side of his tongue at times has some tingling. He denies any changes in his speech. He denies any VPI. His past medical history is otherwise unremarkable. He has a history of asthma which is active whenhe is active or exposed to the cold. He has no surgical history. He has been a lifetime non-smoker. Drinks alcohol rarely. No use of chewing tobacco. He denies a family history of head and neck cancer. Social history as above noting that he is with 3 children. 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 Content of discussion: On examination through the video portal, the patient appears well and in no distress. His voice is completely normal. He has no hot potato voice. He did not appear to have any obvious trismus when opening his mouth although he reported discomfort when he would open his mouth as much as he could. There is no obvious external neck deformity or change in the color of the skin.He was able to turn his head on both sides as well as elevate his shoulders. Was able to stick his tongue on both sides. The anterior dentition appeared in good condition. There was no way that I could look into the back of his throat, obviously. I screen shared with the patient his CT scan that was recently completed on November 24. It shows an obvious symmetry of the right versus the left tonsil with soft tissue anomaly extending along the posterior aspect of the right floor of mouth. There are small cystic areas on the deep aspect of the right tonsil. There is no obvious abscess. He has 2 small noncystic nodes in right level 2. He also hasa small right upper thyroid pole cyst as well as another larger one which fills out most of the left hemithyroid. The cyst do not appear to be infiltrative. The appearance of the vocal cords and trachea as well as the rest of the upper aerodigestive tract as well as the paranasal sinuses appears unremarkable. Disposition: The patient felt there was a lot of convenience about the fact that he did not need tocome in for a office visit today. In this patient's case, it is important that he be evaluated physically in order to assess more completely this tumor. We recommended that we obtain an MRI of the oral cavity and neck. I am concerned about the extent of this lesion which has been going on now for 5 months. It is possible that this represents a tumor. This will be better outlined with the MRI. I discussed the possibility that we may perform an office biopsy. He is taking ibuprofen 3-4 times a day for management of right-sided temporal headaches. I suggested that he sees whether taking Tylenol on a scheduled basis 3 times a day would provide the same relief. We will plan the MRI hopefully next week along with a follow-up visit on the same day to discuss further management goals. His thyroid cysts will have to be evaluated also separately. I may try to doa thyroid aspirate for cytology. he is also to call if there are new concerns. Patient feels that all his concerns and questions have been addressed. he is very pleased about thetelehealth visit encounter. documented in this encounter Plan of Treatment Upcoming Encounters Date Type Department Care Team (Late st Contact Info) Description 05/31/2024 11:30 AM EST Office Visit Hematology/Oncolog y at [address] [phone] Tej Tipton MD [address] [facility] HEMATOLOGY & [place] [address] Stacy Valle APRN [facility] [place] [address] 06/01/2024 10:30 AM EST Scheduled View Only [place] [address] 06/01/2024 11:00 AM EST Office Visit [place] [phone] Luis E Chin MD [facility] [place] [address] 06/04/2024 8:30 AM EST Hospital Encounter Main [place] [address] Rayshawn Suresh MD [facility] [place] [address] 06/04/2024 8:30 AM EST - 06/04/2024 1:05 PM EST Surgery [place] [address] Rayshawn Suresh MD [facility] [place] [address] @THORACOSCOPY, SURG; W PLEURODESIS (WRVU 10.83) Scheduled Procedures Name Priority Associated Diagnoses Date/Ti me @THORACOSCOPY, SURG; W PLEURODESIS (WRVU 10.83) metastatic pleural effusion 06/04/2024 8:30 AM EST BRONCHOSCOPY, DIAGNOSTIC (WRVU 2.53) metastatic pleural effusion 06/04/2024 8:30 AM EST DIONNA\ALMA.CATHETER,TUNNELED, WITH SQ PORT OR PUMP OVER 5YR (WRVU 5.79) metastatic pleural effusion 06/04/2024 8:30 AM EST documented as of this encounter Visit Diagnoses Diagnosis 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
--- OUTSIDE RECORDS SUMMARY | 2024-05-31 01:28 | XMS_ITS | Encounter Summary ---
[facility] Organization [facility] [place] [address] Care Team Providers Care Sap Analyst Name Role Phone Tiny Walters APRN Primary Care Provider [phone] Reason for Visit * Auth/Cert Specialty Diagnoses / Procedures Referred By Fritz lanier Referred To Contact Diagnoses Tonsil cancer Tonsil cancer Procedures PRO LARYNGOSCOPY, DIRCT, OP SCOPE, BIOPSY LARYNGOSCOPY, MICROSCOPE, WITH BIOPSY (WRVU 3.55) Referral ID Status Reason Start Date Expiration Date Visits Re quested Visits Authorized [id number] 1 1 Encounter Details Date Type Department Care Team (Late st Contact Info) Description 01/05/2020 1:16 PM EDT - 01/05/2020 2:36 PM EDT Surgery [place] [address] Tiffany Banuelos MD [facility] [place] [address] LARYNGOSCOPY, MICROSCOPE, WITH BIOPSY (WRVU 3.55) Social History Tobacco Use Types Packs/Day Years Used Date Smoking Tobacco: Never Smokeless Tobacco: Never Sex and Gender Information Value Date Recorded Sex Assigned at Not on file Gender Identity Not on file Sexual Orientation Not on file documented as of this encounter Last Filed Vital Signs Vital Sign Reading Time Taken Comments Blood Pressure 149/75 01/05/2020 12:52 PM EDT Pulse 57 01/05/2020 12:52 PM EDT Temperature 36.8 ??C (98.2 ??F) 01/05/2020 12:52 PM E DT Respiratory Rate 16 01/05/2020 12:52 PM EDT Oxygen Saturation 100% 01/05/2020 12:52 PM EDT Inhaled Oxygen Concentration - - Weight 82.1 kg (181 lb) 01/05/2020 12:52 PM EDT Height 170.2 cm (5' 7.01) 01/05/2020 12:52 PM E DT Body Mass Index 28.34 01/05/2020 12:52 PM EDT documented in this encounter Discharge Instructions * Discharge Instructions* Michelle Schuler RN - 01/05/2020 2:42 PM EDT POST ANESTHESIA INSTRUCTIONS Go home, rest, use caution on stairs. Change positions slowly. Do not smoke if you are alone. Diet light to regular as tolerated today. If nausea occurs start with clear liquids and progress slowly. No driving, operating machinery, alcoholic beverages and no important decisions for 24 hours. Monitor IV site for signs and symptoms of infection: increasing redness, swelling, foul drainage, if occurs contact M.D. Patients who have had endotrachial tubes (this tube, used by anesthesia department, is passed down your throat after you are asleep, to ensure safe air passage during your operation). A sore throat is normal due to the tube. Cold liquids or soothing lozenges will help ease the discomfort. The generalized muscle aches are due to the medication given to you just before the tube is inserted. As the medication wears off, you may develop muscle soreness, which usually goes away in 12-24 hours. * Patient Instructions* Nicole Miramontes MD - 01/05/2020 2:16 PM EDT Instructions for Patient at Discharge: What to expect: Laryngoscopy After a laryngoscopy, you may experience sore throat, some painful swallowing, and brief change in voice. You can use pain medications for sore throat in addition to over the counter agents such as Chloraseptic, Menthol cough drops/lozenges, honey, tea, and warm or cool drinks as tolerated for easethe sore throat. Since we took biopsies, you may have some bleeding from the mouth, however, if this does not resolve within 24-36 hours or becomes shelby active bright red bleeding that does not stop, please call theoffice or check with your local ED to be evaluated. Medications: Pain Control - use acetaminophen (Tylenol) and/or ibuprofen (Motrin, Advil) as needed. You can take 500 mg to 650 mg of Tylenol every 4-6 hours as needed. Do not exceed 4g acetaminophen per day and do not drink alcohol while taking tylenol. You can also take 400 to 600 mg of Ibuprofen (Motrin,Advil) every 6 hours as needed. Constipation - Consider the use of OTC Senna/Docusate, Miralax, Metamucil, prune juice or various suppositories if you have any constipation (especially if related to narcotic/opoid related pain medication) Activity: A good rule of thumb is if it hurts don't do it. Keep your head elevated when lying flat. No heavy lifting or straining for the next week. No smoking, this is important for wound healing. Diet: Resume baseline diet You should call your doctor if you develop: -Increasing pain and redness -Increasing drainage from the wound -Fever > 38.5Celsius or 101 Fahrenheit -Bleeding Contact: -You can reach the ENT clinic at [phone] for appointment questions. -The ENT triage nurse is available at [phone] -For urgent issues during evenings (5 PM - 7 AM) and weekends the ENT resident continuous pickling line pickler helper can be reached through the main hospital weigh machine operator at [phone] Follow Up: You will need to follow up with ENT in 7-10 days. This appointment has been requested. You will be notified once it is scheduled, if you do not already see it below. If you do not hear from us in a timely manner, please call [phone] to receive your date and time. Currently Scheduled Appointments and VNA instructions: Future Appointments and Orders Future Appointments and Orders Future Appointments Provider Department Dept Phone 01/11/2020 2:30 PM [facility] DONTE PET 1 Nuclear Medicine at [facility] Arrive at: 3Z INTERVENTIONAL RADIOLOGY [phone] 01/13/2020 10:00 AM Tiffany Banuelos MD Otolaryngology at [facility] Arrive at: Window Treatment Installer Area [phone] documented in this encounter Medications at Time of Discharge Medication Sig Dispensed Refills Start Date End Date albuteroL 90 mcg/actuation HFA Aerosol Inhaler Inhale 2 puffs into the lungs every 4 hours as needed for Wheezing. Use with spacer venlafaxine XR (Effexor-XR) 75 mg Capsule, Sust. Release 24 hr TAKE ONE CAPSULE BY MOUTH EVERY DAY 12/14/2019 05/29/2020 acetaminophen (Tylenol) 500 mg Tablet Take 1,000 mg by mouth every 6 hours as needed for Pain. 05/01/2020 venlafaxine (Effexor) 25 mg Tablet Take 25 mg by mouth 3 times daily. 01/24/2020 documented as of this encounter H&P Notes * Nicole Miramontes MD - 01/05/2020 1:16 PM EDT OTOLARYNGOLOGY - HEAD & NECK SURGERY INTERVAL H&P NOTE Name: Zen Pickering Age/Sex: 39 y.o. male Attending: Tiffany Banuelos MD Hospital Day: 1 Day of Surgery Interval History Please see clinic/scanned H&P dated 12/28/2019. In brief, Zen Pickering presents today for tonsil mass. There have been no changes to his history. COVID Test Negative. Patient denies symptoms of COVID, exposure to COVID or any known COVID contacts. Physical Exam Patient Vitals for the past 24 hrs: Temp Pulse Resp BP SpO2 O2 Device 01/05/20 1252 36.8 ??C (98.2 ??F) 57 16 149/75 100 % RA Gen: No acute distress, alert and answers questions appropriately CV: Regular rate Pulm: Unlabored breathing Abd: Abdomen soft and non-tender Ext: No peripheral edema ASSESSMENT & PLAN Plan for DL + biopsy. Consent signed, dated, placed in chart Ok to proceed with scheduled operation. Nicole Miramontes MD, PGY4, Pager [phone] 01/05/20 1:16 PM ENT Team Pager: [phone] documented in this encounter Miscellaneous Notes * Op Note - Tiffany Banuelos MD - 01/05/2020 2:16 PM EDT [facility] Operative Note Patient Name: Zen Pickering : [id number] MR#: [id number] Case Date: 01/05/2020 Surgeon: Surgeon(s) and Role: Tiffany Banuelos MD - Primary DivNicole randall MD - Resident Surgeon Diagnosis: Tonsil cancer Procedure(s) (LRB): LARYNGOSCOPY, MICROSCOPE, WITH BIOPSY (WRVU 3.55) (Bilateral) Anesthesia: General Estimated Blood Loss: * No values recorded between 01/05/2020 1:34 PM and 01/05/2020 2:06 PM * Findings: Grade 1 view with Adult Meri. Normal larynx, hypopharynx, vallecula and base of tongue. Tumor noted in right tonsil involving the entire tonsillar fossa, abutting the superior right soft palate but not involving the soft palate, extending to the inferior tonsillar pole and into the right posterior floor of mouth palpable deeply at least 1 cm and abutting the right ventral tongue. Specimens removed during surgery: Order Name Source Comment Collection Info Order Time SPECIMEN TO PATHOLOGY FOR LYMPHOMA WORKUP Tonsil cancer Right tonsil - FOR LYMPHOMA WORKUP biopsy 01/05/2020 1:55 PM Time specimen removed from patient: 1:54 PM Number of tissue samples (in container) 1 Drains: None Surgical Closure: Other Than Primary Closure - deep and superficial layers are left completely openduring original surgery Disposition: awakened from anesthesia, extubated and taken to the recovery room in a stable condition, having suffered no apparent untoward event. Condition: doing well without problems HPI/Surgical Indications: Zen Pickering is a 39 y.o. male with no significant medical history, no tobacco or alcohol use who presented dysphagia, significant trismus, headaches and referred right otalgia with a right tonsil mass with symptoms that started in June 2019. He is here for a direct laryngoscopy and biopsy. Procedure Description: Patient was brought to the operating room and identified. General anesthesiawas induced. Patient was prepped and draped in the standard sterile fashion. Time out was performed. The table was turned 90 degrees. After protecting the upper gums/teeth, a Meri laryngoscope wasintroduced into the oral cavity, positioned to allow for visualization of the larynx, and placed insuspension. A 0 degree Lentz scope was then passed through the laryngoscope and the oropharynx, hypopharynx, and larynx were explored (see findings above) with camera and tower for documentation. Patient was taken out of suspension and the Meri laryngoscope was removed. A McIvor retractor was used to visualize the oropharynx. The findings in the right tonsil and palate were noted and biopsies were taken of right tonsil. Pledgets were then placed at the sites of bleeding and were maintained. Suction cautery was used to achieve hemostasis in the right tonsil. Patient was taken out of suspension, oral cavity was irrigated. Patient was turned back to anesthesia. Allcounts were correct. Nicole Miramontes MD 01/05/2020 Attestation: Case Date: 01/05/2020 I was present and I participated during the entire procedure (does not need to include opening and closing). TIFFANY BANUELOS MD 01/12/2020 documented in this encounter Plan of Treatment Upcoming Encounters Date Type Department Care Team (Late st Contact Info) Description 05/31/2024 11:30 AM EST Office Visit Hematology/Oncolog y at [address] [address] Tej Tipton MD [address] [facility] HEMATOLOGY & [place] [address] Stacy Valle APRN [facility] [place] [address] 06/01/2024 10:30 AM EST Scheduled View Only [place] [address] 06/01/2024 11:00 AM EST Office Visit [place] [phone] Luis E Chin MD [facility] [place] [address] 06/04/2024 8:30 AM EST Hospital Encounter [place] [phone] Rayshawn Suresh MD [facility] [place] [address] 06/04/2024 8:30 AM EST - 06/04/2024 1:05 PM EST Surgery [place] [phone] Rayshawn Suresh MD [facility] [place] [address] @THORACOSCOPY, SURG; W PLEURODESIS (WRVU 10.83) Scheduled [...] Procedure Name Priority Date/Time Associated Diagnosis Comments IMMUNOPHENOTYPING FLOW CYTOMETRY (BLOOD) Routine 01/05/2020 5:18 PM EDT KARYOTYPING, LYMPH NODE -[place] Routine 01/05/2020 3:15 PM EDT SPECIMEN TO PATHOLOGY Routine 01/05/2020 1:55 PM EDT SURGICAL PATHOLOGY REPORT Routine 2019 1:54 PM EDT Laryngoscopy, Dirct, Op Scope, Biopsy ([id number]) Yes 01/05/2020 1:18 PM EDT Tonsil cancer LARYNGOSCOPY, MICROSCOPE, WITH BIOPSY Routine 01/05/2020 11:08 AM EDT documented in this encounter Results * Immunophenotyping Flow Cytometry (01/05/2020 5:18 PM EDT) Immunophenotyping Flow See Comment [facility] Comment: When completed by the Pathologist, the Flow Cytometry Report ([id number]) will display under the Pathology Results section within eDH. Specimen of unknown material (specimen) Other / Unknown 01/05/2020 5:18 PM EDT 01/05/2020 5:18 PM EDT Narrative Resulting Agency Comment Spec In Lab Tiffany Banuelos MD HEMATOLOGY ORDERABL ES [facility] [place] [address] * Karyotyping, Lymph Node (01/05/2020 3:15 PM EDT) Karyotyping, Lymph Node Test ?Result ? Flag ??Unit ??RefValue Chromosomes, Lymphoid Tissue ??Result Summary ?Normal ??Interpretation ?SEE COMMENTS ?No clonal abnormality was apparent in this tonsil specimen. ??Result ?SEE COMMENTS ?Unstimulated cell cultures: ??46,XY[1] ?CpG-stimulated cell culture: 46,XY[19] ??Reason for Referral ? lymphoma ??Specimen ?Tissue, Lymph Node ??Source ?tonsil ??Method ?Cultures with and without mitogens ??Banding Method ?SEE COMMENTS ?Band Resolution: ?400-549 ? Stain Name ? Cells Analyzed ??Cells ?Karyograms ?Counted ?Prepared ? GTL ?20 ?0 ?2 ? Total ?20 ?0 ?2 ?Plasencia to Stain Name: GTL=G-banding; QFQ=Q-banding; ?DAPI=DAPI-stai josephine; CBL=C-banding; AGNOR=Silver-sta ining; ?NON=Non-banded ?The sum of Cells Analyzed and Cells Counted equals the ?total cells examined. ??Released By ?Michi Post, Ph.D. ?Test Performed by: ?[facility] ?[address] [place] [address] ?Heating Fixture Tender: Zan Gama M.D. Ph.D.; IA# [id number] [facility] Lymph node tissue specimen (specimen) HLX Lymph Node / Unknown 01/05/2020 3:15 PM EDT 01/06/2020 9:21 AM EDT Tiffany Banuelos MD CHEMISTRY ORDERABLE S Performing Organization Address [facility] de Phone Number [place] [phone] * Specimen to Pathology (01/05/2020 1:55 PM EDT) AP Specimen 01/05/2020 1:55 PM EDT 01/05/2020 1:55 PM EDT Narrative [facility] - 01/05/2020 1:55 PM EDT Specimen requisition ordered. ??Separate Pathology report to follow Tiffany Banuelos MD PATHOLOGY/CYTOLOGY ORDERABLES Performing Organization Address [facility] de Phone Number [place] [phone] * Surgical Pathology Report (01/05/2020 1:54 PM EDT) Final Diagnosis [id number] ? Location: SDP; SD38; A The signing pathologist has (i) examined the relevant preparation(s) for the specimen(s) and (ii) rendered or confirmed the diagnosis(es). . ?Molecular Genetics RESULTS TEST: ??Human Papillomavirus (HPV) High-Risk Genotyping Analysis INDICATION: ??squamous cell carcinoma SPECIMEN: ??right tonsil, biopsy, A1 RESULTS: ??Positive for HPV genotype 16 INTERPRETATION: ??Results indicate that the submitted tissue contained one of the 14 HPV types detected by this assay. Not all high-risk HPV genotypes are included in this test. METHODS: ??Highly purified genomic DNA was extracted from a formalin fixed paraffin embedded tissue section after lysing of the cells. HPV genotyping was performed using the [place] MeltPro High-Risk HPV Genotyping Test that assays for the qualitative detection of 14 high-risk HPV genotypes in a variety of tissues. This test uses PCR followed by high-resolution melting curve analysis for the detection of 14 high-risk HPV types (16, 18, 31, 33, 35, 39, 45, 51, 52, 56, 58, 59, 66, and 68). High-risk HPV subtypes are differentiated in one single reaction with a sensitivity of 200 copies per reaction. LIMITATIONS AND DISCLAIMERS ??: Although unlikely, rare variants (known or unknown) have the potential to interfere with the performance of this test, producing false negative or false positive results. When genotyping results are not consistent with other clinical observations or test results, additional testing should be considered. This test was developed and its performance characteristics determined by the [facility] ([facility]) Laboratory at [facility]. It has not been cleared or approved by the FDA. The laboratory is regulated under CLIA as qualified to perform high-complexity testing. This test is used for clinical purposes. It should not be regarded as investigational or for research. Electronically signed by: ?Cecil Handy DO Verified: ??05/30/2023 16:28 ??Pathologist Performed at: ??-[facility] Dept. 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 Electronically signed by: ??Vicki Ruggiero DO Verified: ??01/11/2020 ?Pathologist Performed at: ??-[facility] Dept. of Pathology, [place], [place] ADDITIONAL STUDIES Immunohistochemistry Studies: Formalin-fixed, paraffin-embedded tissue sections are studied using the polymer technique with appropriate positive and negative controls. ?These IHC studies provide the pathologist with adjunctive diagnostic information. Antibody specificity has been verified by testing antibodies on a series of in-house tissues with known . ADDITIONAL STUDIES immunohistochemical performance characteristics. The clinical interpretation of any antibody positive staining or its absence is evaluated within the context of clinical presentation, morphology, histopathological criteria and other diagnostic tests. Block ? Antibody ?Result (Positive/Negative) A1 ?P16 ? Positive in lesional cells. A1 ?P40 ? Positive in lesional cells. SPECIMEN(S) SUBMITTED A - right tonsil, biopsy (1) CLINICAL INFORMATION Tonsil cancer SPECIMEN PROCESSING A - Labeled/Fixative: Right tonsil-for lymphoma workup, fresh. Quantity/Size: ??Fragments, 1.0 x 0.5 x 0.4 cm in aggregate. Tissue Description: Rubbery, irregular pink soft tissue and clotted blood. Sections/Processing: Touch prep(s) are prepared. Tissue is submitted to flow cytometry. Tissue is submitted to cytogenetics. Submitted en toto ??in 1 cassette labeled A1. ??shb ?Flow Cytometry DIAGNOSIS TONSIL, RIGHT - FLOW CYTOMETRY: No monotypic B-cell population or specific weiss-T-cell marker aberrancies are detected (see comment) COMMENT: No neoplastic lymphoproliferation is immunophenotypically detected. Flow cytometry may not detect all abnormal lymphoproliferations and is not suitable for the evaluation of non-hematologic processes. Please correlate results with the morphologic findings in the primary biopsy report. Electronically signed by: ??Marquis Elias MD Verified: ??01/06/2020 ?Hematopathologist Performed at: ??-[facility] Dept. of Pathology, [place], [place] DISCUSSION Cell viability in the [id number] low-SSC histogram region was 83% as assessed by 7- AAD exclusion. The lymphocyte enriched gate represents about 63% of the total events, and this gated population consists mostly of T-cells (49%), B-cells (47%), and NK- cells (2%). The T-cells show a CD4:CD8 ratio of about 3.2:1, and no weiss-T-cell marker aberrancy is identified. The B-cells are polytypic with a kappa:lambda ratio of about 1.3:1. F low analysis is an ancillary study. A definite diagnosis requires correlation with the morphologic features of this process and if necessary, correlation with other ancillary studies like immunohistochemistry, enzyme cytochemistry and/or cyto/ molecular genetics. This test was developed and its performance characteristics determined by the Clinical Flow Cytometry Laboratory at [facility]. It has not been cleared or approved by the U.S. Food and Drug Administration. ??The FDA has determined that such clearance or approval is not necessary. ??This test is used for clinical purposes. ??It should not be regarded as investigational or for research. This laboratory is certified under the Clinical Laboratory Improvement Act of 1988 (CLIA) as qualified to perform high complexity clinical laboratory testing. . SPECIMEN PROCESSING [id number] Cells for immunophenotypic analysis were derived from right tonsil biopsy. CD45 vs side scatter gating was utilized to identify a lymphoid analysis region that comprises approximately 63% of all cells. The following markers were assessed: CD2, CD3, CD4, CD5, CD7, CD8, CD10, CD19, CD45, CD56, kappa light chain, and lambda light chain. CLINICAL INFORMATION A 39 year old man who was evaluated by ENT for an enlarged right tonsil, unresponsive to medical management. He underwent a laryngoscopy with biopsy, and tissue was submitted by the clinical team for lymphoma workup including flow cytometry. 05/30/2023 4:28 PM [facility] BILATERAL PALATINE TONSILS / Unknown 01/05/2020 1:54 PM EDT 01/05/2020 1:54 PM EDT Tiffany Banuelos MD PATHOLOGY/CYTOLOGY ORDERABLES [facility] [place] [address] [facility] [place] [address] documented in this encounter Visit Diagnoses Not on filedocumented in this encounter Administered Medications Inactive Administered Medications - up to 3 most recent administrations Medication Order MAR Action Action Date Dose Rate Site acetaminophen (Tylenol) tablet 1,000 mg 1,000 mg, Oral, ONCE, 1 dose, On Fri01/05/20 at 1315, Administer with SIP of H2O only., Day of Surgery (Day of Procedure), Routine Given 01/05/2020 12:59 PM EDT 1,000 mg EPINEPHrine (ADRENALIN) nasal solution ONCE PRN, Starting on Fri01/05/20 at 1339, Until Fri01/05/20 at 1805, Intra-Operative (Intra-Procedure), Routine Given 01/05/2020 1:39 PM EDT 30 mLs 19- Surgical Site documented in this encounter Active and Recently Administered Medications Times are shown in EDT. Scheduled Medication Order 01/03/2020 01/04/2020 01/05/2020 acetaminophen (Tylenol) tablet 1,000 mg (COMPLETED) 1,000 mg, Oral, ONCE, 1 dose, On Fri01/05/20 at 1315, Administer with SIP of H2O only., Day of Surgery (Day of Procedure), Routine 1259 (Given - Provid er: Dolores Salinas RN) clindamycin (CLEOCIN) 300mg in dextrose 5% 50mL (COMPLETED) 300 mg, Intravenous, 30 MIN PRE-OP, 1 dose, On Fri01/05/20 at 1315, Administer over 10 Minutes, Day of Surgery (Day of Procedure), Indication for (Active or Suspected): Prophylaxis 1336 (Given - Provid er: Delmar Pinto MD) Continuous Medication Order 01/03/2020 01/04/2020 01/05/2020 lactated ringers infusion (CANCELED) 1,000 mL, at 100 mL/hr, Intravenous, CONTINUOUS, Starting on Fri01/05/20 at 1315, Until Fri01/05/20 at 1604, Day of Surgery (Day of Procedure) 1320 (New Bag - Prov ider: Delmar Pinto MD)1403 (Anesthesia Volume Adjustment - Provider: Delmar Pinto MD) PRN Medication Order 01/03/2020 01/04/2020 01/05/2020 EPINEPHrine (ADRENALIN) nasal solution (CANCELED) ONCE PRN, Starting on Fri01/05/20 at 1339, Until Fri01/05/20 at 1805, Intra-Operative (Intra-Procedure), Routine 1339 (Given - Provid er: Nicole Miramontes MD - Comment: used PRN with patties for hemostasis) documented in this encounter Care Teams Sap Analyst Relationship Specialty Start Date End Date Tiny Walters APRN [address] [place] [phone] PCP - General Family Medicine 12/01/19 04/07/24 documented as of this encounter
--- OUTSIDE RECORDS SUMMARY | 2024-05-31 01:28 | XMS_ITS | Encounter Summary ---
[place] [address] Care Team Providers Care Edi Consultant Name Role Phone Tiny Walters APRN Primary Care Provider +1- [phone] Reason for Referral * Diagnostic Test (Routine) - Closed Specialty Diagnoses / Procedures Referred By Fritz t Referred To Contact Radiology Diagnoses Tonsil cancer Procedures MRI Soft Tissue Neck wwo Contrast Jose Martin Rae MD [facility] [place] [address] [place] [address] Referral ID Status Reason Start Date Expiration Date V isits Requested Visits Authorized [id number] Closed Specialty Service Requested 02/08/2020 08/08/2021 1 1 * Consultation (Routine) - Specialty Diagnoses / Procedures Referred By Fritz lanier Referred To Contact Radiation Oncology Diagnoses Tonsil cancer Procedures Simulation for Radiation Therapy Planning Jose Martin Rae MD [facility] [place] [address] [facility] [address] [place] [phone] Referral ID Status Reason Start Date Expiration Date V isits Requested Visits Authorized [id number] Consult, Test & Treat 02/09/2020 04/27/2020 35 35 Encounter Details Date Type Department Care Team (Late st Contact Info) Description 02/08/2020 Orders Only [place] [address] Jose Martin Rae MD [facility] [place] [address] Tonsil cancer Social History Tobacco Use Types [...] EST Office Visit Hematology/Oncolog y at [address] [phone] Tej Tipton MD [facility] DR HEMATOLOGY [place] [address] Stacy Valle APRN [facility] [place] [address] 06/01/2024 10:30 AM EST Scheduled View Only [place] [address] 06/01/2024 11:00 AM EST Office Visit [place] [phone] Luis E Chin MD [facility] [place] [address] 06/04/2024 8:30 AM EST Hospital Encounter [place] [phone] Rayshawn Suresh MD [facility] [place] [address] 06/04/2024 8:30 AM EST - 06/04/2024 1:05 PM EST Surgery [place] [address] Rayshawn Suresh MD [facility] [place] [address] @THORACOSCOPY, SURG; W PLEURODESIS (WRVU 10.83) Scheduled [...] as of this encounter Results * MRI Soft Tissue [...] tonsil documented in this encounter Care Teams Edi Consultant Relationship Specialty Start Date End Date Tiny Walters, BATSHEVA [address] [place] [phone] PCP - General Family Medicine 12/01/19 04/07/24 documented as of this encounter
--- OUTSIDE RECORDS SUMMARY | 2024-05-31 01:28 | XMS_ITS | Encounter Summary ---
Author Organization [facility] Address [facility] [place] [address] Care Team Providers Care Recreation Worker Name Role Phone Tiny Walters APRN Primary Care Provider +1- [phone] Reason for Visit * Auth/Cert Specialty Diagnoses / Procedures Referred By Fritz lanier Referred To Contact Diagnoses r/o tonsil cancer Procedures PRO REMOVAL OF TONSILS, 12+ Y/O Tonsillectomy Referral ID Status Reason Start Date Expiration Date Visits Re quested Visits Authorized [id number] 1 1 Encounter Details Date Type Department Care Team (Late st Contact Info) Description 01/28/2020 11:48 AM EDT Anesthesia Event [place] [phone] Vanessa Cotton MD [facility] [place] [address] Jacob Mcbride MD Anesthesia Record Procedure Summary Procedure Name Responsible Anesthesiologist Anesthesia Start Time Anesthesia Stop Time TONSILLECTOMY AGE 12 AND OVER (WRVU 3.45) (Left: Mouth) Vanessa Cotton MD 01/28/20 1148 01/28/20 1316 Events Date Time Event Comment 01/28/2020 1137 1148 AN Verify 1148 Start 1148 An Start Data 1158 An Induction 1201 An Intubation 1205 Anesthesia Ready 1214 Procedure Start 1304 Extubation/LMA Out 1306 an stop data 1316 Recovery or ICU Handoff Carmen ent care was transferred to the destination unit staff after review of the patient's medical history, current anesthetic/surgical status and plan, according to the Provider Handoff Checklist. 1316 Stop Meds Name Total Midazolam 2 mg fentaNYL 100 mcg IV Lidocaine 60 mg Propofol 350 mg ePHEDrine 10 mg Ondansetron 8 mg Dexamethasone 8 mg Neostigmine 3 mg Glycopyrrolate 0.6 mg clindamycin (CLEOCIN) 300mg in dextrose 5% 50mL 300 mg Labetalol 10 mg lactated ringers infusion 300 mL * Agents Name O2 Air N2O Sevoflurane (et) * Blood No blood administrations on file. Lines, Drains, and Airways Type Details Placement Removal (RETIRED) Peripheral IV Line - Single Lumen 01/28/20; 1044; cephalic vein (lateral side of arm), right; kioz-ioc-kceihg catheter system; 20 gauge, 1 in length; distraction, intradermal injection; no longer indicated; 01/28/20; 1455 01/28/20 1044 by Aiden Collins RN 01/28/20 1455 by Griffin Solorio RN ETT Mask Ventilation: Ea sy (1); ETT Type: Cuffed, Oral, TIEN; ETT Size: 7 mm; Indirect: Video; Notes: Asleep, Pre-O2; Attempts: 1; Laryngoscopy Grade: 1; ETT Placement Verified By: Capnometry, Visual; Inserted by: Reed Arriaza; Removal Date: 01/28/20; Removal Time: 1304 01/28/20 1201 by Jacob Mcbride MD 01/28/20 1304 by Jacob Mcbride MD Incision 01/28/20; 1214; thro at; excision of left tonsil; 02/11/20; 1222 01/28/20 1214 by Radha Jarvis RN 02/11/20 1222 by Elli Benson RN documented in this encounter Social History [...] OR Notes * Anesthesia Postprocedure Evaluation - Vanessa Cotton MD - 01/28/2020 5:09 PM EDT Department of Anesthesiology Post-procedure Note Patient: Zen Pickering Procedure Summary Date: 01/28/20 Room / Location: [facility] OR Anesthesia Start: 1148 Anesthesia Stop: 1316 Procedure: TONSILLECTOMY AGE 12 AND OVER (WRVU 3.45) (Left Mouth) Diagnosis: (r/o tonsil cancer) Surgeon: Yrn Banuelos MD Responsible Provider: Vanessa Cotton MD Anesthesia Type: Not recorded ASA Status: 2 All Anesthesia Providers: Anesthesiologist: Vanessa Cotton MD Safety Analyst: Jacob Mcbride MD Vitals Value Taken Time BP 137/91 01/28/20 1430 Temp 36.2 ??C (97.2 ??F) 01/28/20 1312 Pulse 55 01/28/20 1312 Resp 16 01/28/20 1430 SpO2 98 % 01/28/20 1444 Pain Level 5 01/28/20 1331 Vitals shown include unvalidated device data. Patient Location: PACU/[facility] Level of Consciousness: Awake and Alert Pain Management: Satisfactory Analgesia PONV: None Cardiovascular Status: At Baseline and Hemodynamically Stable Respiratory Status: At Baseline and Room Air Postoperative Fluid Status: Intravascular EUvolemia Possible Anesthetic Complications: NONE apparent at time of evaluation Final Primary Anesthesia Type: General (The anesthetic type performed was the same as planned.) Comments: VANESSA COTTON MD * Anesthesia Preprocedure Evaluation - Vanessa Cotton MD - 01/28/2020 7:21 AM EDT Pre-Anesthesia Evaluation for: Zen Pickering a 39 y.o. male. Procedure(s): TONSILLECTOMY AGE 12 AND OVER (VU 3.45) Patient Active Problem List Diagnosis ??? Raynaud's syndrome ??? 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 Asthma ??? Raynaud's disease ??? Tonsil cancer Past Surgical History: Procedure Laterality Date ??? PRO LARYNGOSCOPY, DIRCT, OP SCOPE, BIOPSY Bilateral 01/05/2020 LARYNGOSCOPY, MICROSCOPE, WITH BIOPSY (WRVU 3.55) performed by Yrn Banuelos MD at [facility] MAIN OR Social History Tobacco Use ??? Smoking status: Never Smoker ??? Smokeless tobacco: Never Used Substance Use Topics ??? Alcohol use: Yes Frequency: 2-4 times a month Drinks per session: 1 or 2 Social History Substance and Sexual Activity Drug Use Never No Known Allergies Medications: MAR and/or home medications have been reviewed. Physical Exam: No data found. There is no height or weight on file to calculate BMI. Airway Assessment: Mallampati: III TM distance: >3 FB Neck ROM: full Tight mouth opening (vertical distance ~2 finger breadths) Cardiovascular Assessment: cardiovascular exam normal Pulmonary Assessment: pulmonary exam normal Dental Assessment: - normal exam Misc Assessment: Patient is wearing No contact(s). IV access: Peripheral line Anesthesia Plan: ASA 2 with a(n) intravenous induction This is a 39 y.o. male, PMHx significant for mild asthma, likely OPHELIA (no diagnosis or CPAP use) with tonsillar cancer presenting for Left Tonsillectomy. Anesthetic hx: No reported prior complications with anesthesia Airway hx: East BVM, G1v w/ CMAC D-blade (difficult to pass through mouth opening). 7.0 Oral TIEN. No known cardiac disease. Good functional status. Allergies: No Known Allergies Anesthetic Plan: GETA (Oral TIEN) Region - Other Informed Consent: Plan discussed with attending. PAT Clinic Note documented in this encounter Plan of Treatment Upcoming Encounters Date Type Department Care Team (Late st Contact Info) Description 05/31/2024 11:30 AM EST Office Visit Hematology/Oncolog y at [address] [phone] Tej Tipton MD [address] [facility] HEMATOLOGY [place] [address] Stacy Valle APRN [facility] [place] [address] 06/01/2024 10:30 AM EST Scheduled View [place] [address] 06/01/2024 11:00 AM EST Office Visit [place] [phone] Luis E Chin MD [facility] [place] [address] 06/04/2024 8:30 AM EST Hospital Encounter [place] [phone] Rayshawn Suresh MD [facility] [place] [address] 06/04/2024 8:30 AM EST - 06/04/2024 1:05 PM EST Surgery [place] [phone] Rayshawn Suresh MD [facility] [place] [address] @THORACOSCOPY, SURG; W PLEURODESIS (WRVU 10.83) Scheduled [...] MAR Action Action Date Dose Rate Site clindamycin (CLEOCIN) 300mg in dextrose 5% 50mL 300 mg, Intravenous, 30 MIN PRE-OP, 1 dose, On Fri01/28/20 at 1045, Administer over 10 Minutes, Day of Surgery (Day of Procedure), Indication for (Active or Suspected): Prophylaxis Given 01/28/2020 12:05 PM EDT 300 mg dexamethasone (Decadron) injection PRN, Starting on Fri01/28/20 at 1208, Until Fri01/28/20 at 1316, Anesthesia Intra-op, Routine Given 01/28/2020 12:08 PM EDT 8 mg ePHEDrine 5 mg/mL multi-dose injection PRN, Starting on Fri01/28/20 at 1241, Until Fri01/28/20 at 1316, Anesthesia Intra-op, Routine Given 01/28/2020 12:45 PM EDT 5 mg Given 01/28/2020 12:41 PM EDT 5 mg fentaNYL 50 mcg/mL multi-dose injection PRN, Starting on Fri01/28/20 at 1206, Until Fri01/28/20 at 1316, Anesthesia Intra-op, Routine Given 01/28/2020 12:13 PM EDT 50 mcg Given 01/28/2020 12:06 PM EDT 50 mcg glycopyrrolate (ROBINUL) multi-dose injection PRN, Starting on Fri01/28/20 at 1247, Until Fri01/28/20 at 1316, Anesthesia Intra-op, Routine Given 01/28/2020 12:53 PM EDT 0.4 mg Given 01/28/2020 12:47 PM EDT 0.2 mg labetalol (NORMODYNE,TRANDATE) multi-dose injection PRN, Starting on Fri01/28/20 at 1232, Until Fri01/28/20 at 1316, Anesthesia Intra-op, Routine Given 01/28/2020 12:32 PM EDT 5 mg Given 01/28/2020 11:20 AM EDT 5 mg lactated ringers infusion 1,000 mL, at 100 mL/hr, Intravenous, CONTINUOUS, Starting on Fri01/28/20 at 1045, Until Fri01/28/20 at 1457, Day of Surgery (Day of Procedure) New Bag 01/28/2020 11:44 AM EDT lidocaine (PF) (XYLOCAINE) 100 mg/5 mL (2 %) injection PRN, Starting on Fri01/28/20 at 1158, Until Fri01/28/20 at 1316, Anesthesia Intra-op, Routine Given 01/28/2020 11:58 AM EDT 60 mg midazolam (PF) (VERSED) multi-dose injection PRN, Starting on Fri01/28/20 at 1146, Until Fri01/28/20 at 1316, Anesthesia Intra-op, Routine Given 01/28/2020 11:46 AM EDT 2 mg neostigmine (BLOXIVERZ) injection PRN, Starting on Fri01/28/20 at 1253, Until Fri01/28/20 at 1316, Anesthesia Intra-op, Routine Given 01/28/2020 12:53 PM EDT 3 mg ondansetron (ZOFRAN) injection PRN, Starting on Fri01/28/20 at 1301, Until Fri01/28/20 at 1317, Anesthesia Intra-op, Routine Given 01/28/2020 1:01 PM EDT 8 mg propofoL (Diprivan) 10 mg/mL bolus injection (Anesthesia) PRN, Starting on Fri01/28/20 at 1158, Until Fri01/28/20 at 1316, Anesthesia Intra-op Given 01/28/2020 12:01 PM EDT 100 mg Given 01/28/2020 11:59 AM EDT 50 mg Given 01/28/2020 11:58 AM EDT 200 mg documented in this encounter Care Teams Recreation Worker Relationship Specialty Start Date End Date Tiny Walters APRN [address] [place] [phone] PCP - General Family Medicine 12/01/19 04/07/24 documented as of this encounter
--- OUTSIDE RECORDS SUMMARY | 2024-05-31 01:28 | XMS_ITS | Encounter Summary ---
Author Organization [facility] Address [facility] [place] [address] Care Team Providers Care Engraver Set Up Operator Name Role Phone Tiny Walters APRN Primary Care Provider +1- [phone] Reason for Visit * Reason Comments Follow-up Did well after surge ry. Encounter Details Date Type Department Care Team (Late st Contact Info) Description 01/13/2020 10:00 AM EDT Office Visit [place] [address] Yrn Banuelos MD [facility] [place] [address] Tonsil cancer Social History Tobacco Use Types Packs/Day Years Used Date Smoking Tobacco: Never Smokeless Tobacco: Never Sex and Gender Information Value Date Recorded Sex Assigned at Not on file Gender Identity Not on file Sexual Orientation Not on file documented as of this encounter Last Filed Vital Signs Vital Sign Reading Time Taken Comments Blood Pressure - - Pulse - - Temperature 37.1 ??C (98.7 ??F) 01/13/2020 9:50 AM ED T Respiratory Rate - - Oxygen Saturation - - Inhaled Oxygen Concentration - - Weight 83.6 kg (184 lb 6.4 oz) 01/13/2020 9:50 A M EDT Height 170.2 cm (5' 7) 01/13/2020 9:50 AM EDT Body Mass Index 28.88 01/13/2020 9:50 AM EDT documented in this encounter Progress Notes * Yrn Banuelos MD - 01/13/2020 10:00 AM EDT Subjective: Patient ID: Zen Pickering is a 39 y.o. male. HPI Zen Pickering is seen in follow up of his asymmetric tonsillar enlargement with long prior hx of OPHELIA and snoring. This previously healthy 39-year-old male, here for evaluation [facility] MRI completed today prior to clinic visit. Symptoms as noted previously started June 2019. He has not experienced any new nausea, vomiting, weight loss, night sweats, or chills. He still endorses limited ability to swallow solids. He also has developed significant trismus. He denies any breathing difficulties. Denies any voice change. Has not had any bleeding from his mouth nor any nosebleeds. He denies any nasal symptoms. He has had some associated referred right otalgia.Denies a history of gastroesophageal reflux disease. He is not aware of any obvious mass in his neck. His , who is here with him, reports that he is a very heavy snorer over the last few months.apparently did not have any prior history of frequent tonsil infections. He has started to have severe headaches taking 1000 mg tylenol ~5x daily. No changes in his speech. Was taken to the OR for EUA biopsies in view of findings of trismus and large R tonsillar mass extending into the R FOM and posterior tongue. Notes now new numbness on the right side of his tongue, not completely numb, but more like novocaine. No change in speech nor swallowing. Denies neck mass or other constitutional symptoms. His past medical history is otherwise unremarkable. ??He has a history of asthma which is active when he is active or exposed to the cold. ??He has no surgical history. Social: Denies ever smoking tobacco, chewing, or heavy alcohol use. Case presented at this AM. Underwent PET CT yesterday No past medical history on file. Past Surgical History: Procedure Laterality Date ??? PRO LARYNGOSCOPY, DIRCT, OP SCOPE, BIOPSY Bilateral 01/05/2020 LARYNGOSCOPY, MICROSCOPE, WITH BIOPSY (WRVU 3.55) performed by Yrn Banuelos MD at [facility] MAIN OR Current Outpatient Medications: ??? acetaminophen (Tylenol) 500 mg Tablet, Take 1,000 mg by mouth every 6 hours as needed for Pain., Disp: , Rfl: ??? venlafaxine (Effexor) 25 mg Tablet, Take 25 mg by mouth 3 times daily., Disp: , Rfl: ??? albuteroL 90 mcg/actuation HFA Aerosol Inhaler, Inhale 2 puffs into the lungs every 4 hours as needed for Wheezing. Use with spacer, Disp: , Rfl: No Known Allergies Patient Active Problem List Diagnosis Code ??? Tonsillar tumor D49.0 No family history on file. There is no pertinent family history of otolaryngologic problems Review of Systems: A complete review of constitutional, eyes, cardiovascular, respiratory, GI, , musculo-skeletal, skin, endocrine, psychiatric, hematologic, lymphatic and immunologic systems is completed and is as noted in the HPI. All other systems are otherwise negative. Social History Socioeconomic History ??? Marital [...] Substance and Sexual Activity ??? Alcohol use: Not on file ??? Drug use: Not on file ??? Sexual activity: Not on file Lifestyle ??? Physical activity Days per week: Not on file Minutes per session: Not on file ??? Stress: Not on file Relationships ??? Social connections Talks on phone: Not on file Gets together: Not on file Attends sabianist service: Not on file Active member of [...] ??? Not on file Social History Narrative ??? Not on file . 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 Review of Systems Objective: Physical Exam Vitals signs and nursing note reviewed. Constitutional: General: He is not in acute distress. Appearance: He is well-developed. He is not diaphoretic ( Speech is not slurred and he has no respiratory issues, no coarseness). HENT: Head: Normocephalic. Jaw: Trismus ( 2.5 cm tender to trying to open his mouth) and pain on movement present. Salivary Glands: Right salivary gland is diffusely enlarged ( 3-4+). Right Ear: Tympanic membrane, ear canal and external ear normal. No tenderness. No middle ear effusion. Left Ear: Tympanic membrane, ear canal and external ear normal. No tenderness. No middle ear effusion. Nose: Nose normal. No nasal deformity, septal deviation or mucosal edema. Mouth/Throat: Lips: No lesions. Mouth: Mucous membranes are moist. No oral lesions. Dentition: Normal dentition. Tongue: Lesions ( Palpable lesion posterior mobile tongue extending into right tonsil) present. Tongue deviates from midline ( Rightward). Pharynx: Uvula midline. No oropharyngeal exudate. Eyes: General: No scleral icterus. Conjunctiva/sclera: Conjunctivae normal. Pupils: Pupils are equal, round, and reactive to light. Neck: Musculoskeletal: Normal range of motion and neck supple. Thyroid: No thyroid mass or thyromegaly. Vascular: No carotid bruit. Trachea: No tracheal deviation. Pulmonary: Effort: Pulmonary effort is normal. No respiratory distress. Breath sounds: No stridor. Lymphadenopathy: Cervical: No cervical adenopathy ( shotty right upper cervical adenopathy). Skin: General: Skin is warm. Findings: No erythema. Neurological: Mental Status: He is alert and oriented to person, place, and time. Cranial Nerves: No cranial nerve deficit. Deep Tendon Reflexes: Reflexes are normal and symmetric. Psychiatric: Behavior: Behavior normal. Thought Content: Thought content normal. Judgment: Judgment normal. PET CT: Large FDG avid mass centered in the right upper pharyngeal and palatine tonsil region extending into the posterolateral right tongue musculature (axial images 61 through 74). FDG avid soft tissue fullness in the left upper pharyngeal palate tonsil region (centered on axial image 67). Small FDG avid lymph nodes in the right level 2 and 3 region (axial images 67 through 83). Several small FDG avid lymph nodes in the left level 2 region (axial images 69 through 75). Normal activity in all other soft tissue regions of the neck and visualized lower head. Non-FDG avid 2.7 cm hypoattenuating lesion in the left thyroid, likely a cyst. 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 pedro discussion about etiology and management. Discussed presentationat this AM's TB with recommendations for chemoradiation therapy. Discussed role of HPV in his tumor vs etiology from smoking/EtOH. Patient PET CT shows also uptake in his left tonsil region and hx of OPHELIA.which precedes this current diagnosis. Discussed taking him back to the OR for a left tonsillectomy. Discussed limitations of this to address OPHELIA symptoms, but will help with diagnosis r/o separate SCCa. At time of surgery if exposure of the lower tonsil region is not optimal, may only be able to do a biopsy of the left tonsil. Discussed potential riskss and complications documented in this encounter Plan of Treatment Upcoming Encounters Date Type Department Care Team (Late st Contact Info) Description 05/31/2024 11:30 AM EST Office Visit Hematology/Oncolog y at [address] [address] Tej Tipton MD [address] [facility] DR HEMATOLOGY & [place] [address] Stacy Valle APRN [facility] [place] [address] 06/01/2024 10:30 AM EST Scheduled View Only [place] [phone] 06/01/2024 11:00 AM EST Office Visit [place] [phone] Luis E Chin MD [facility] [place] [address] 06/04/2024 8:30 AM EST Hospital Encounter [place] [address] Rayshawn Suresh MD [facility] [place] [address] 06/04/2024 8:30 AM EST - 06/04/2024 1:05 PM EST Surgery [place] [address] Rayshawn Suresh MD [facility] [place] [address] @THORACOSCOPY, SURG; W PLEURODESIS (WRVU 10.83) Scheduled [...] tonsil documented in this encounter Care Teams Engraver Set Up Operator Relationship Specialty Start Date End Date Tiny Walters APRN [address] [place] [phone] PCP - General Family Medicine 12/01/19 04/07/24 documented as of this encounter
--- OUTSIDE RECORDS SUMMARY | 2024-05-31 01:28 | XMS_ITS | Encounter Summary ---
Author Organization [facility] Address [facility] [place] [address] Care Team Providers Care Select Banker Name Role Phone Tiny Walters APRN Primary Care Provider +1- [phone] Reason for Visit * Diagnostic Test (Routine) - Closed Specialty Diagnoses / Procedures Referred By Fritz lanier Referred To Contact Radiology Diagnoses Tonsil cancer Procedures NM PET CT Standard Plus Head and Neck Yrn Banuelos MD [facility] [place] [address] [place] [address] Referral ID Status Reason Start Date Expiration Date V isits Requested Visits Authorized [id number] Closed Specialty Service Requested 01/05/2020 02/10/2020 1 1 Encounter Details Date Type Department Care Team (Latest Contact Info) Description 01/11/2020 2:30 PM EDT - 01/11/2020 11:59 PM EDT Hospital En[place] [address] Yrn Banuelos MD [facility] [place] [address] Discharge Disposition: Home Social History [...] daily. 01/24/2020 documented as of this encounter Plan of Treatment Upcoming Encounters Date Type Department Care Team (Late st Contact Info) Description 05/31/2024 11:30 AM EST Office Visit Hematology/Oncolog y at [address] [address] Tej Tipton MD [address] [facility] [address] HEMATOLOGY [place] [address] Stacy Valle APRN [facility] [place] [address] 06/01/2024 10:30 AM EST Scheduled View [place] [address] 06/01/2024 11:00 AM EST Office [place] [phone] Luis E Chin MD [facility] [place] [address] 06/04/2024 8:30 AM EST Hospital Encounter [place] [phone] Rayshawn Suresh MD [facility] [place] [address] 06/04/2024 8:30 AM EST - 06/04/2024 1:05 PM EST [place] [address] Rayshawn Suresh MD [facility] [place] [address] @THORACOSCOPY, SURG; W PLEURODESIS (WRVU 10.83) Scheduled [...] CT STANDARD PLUS HEAD AND NECK Routine 01/11/2020 3:05 PM EDT Tonsil cancer documented in this encounter Visit Diagnoses Not on filedocumented in this encounter Administered Medications Inactive Administered Medications - up to 3 most recent administrations Medication Order MAR Action Action Date Dose Rate Site ALPRAZolam (Xanax) tablet 0.5 mg 0.5 mg, Oral, ONCE, 1 dose, On Fri01/11/20 at 1200, Routine Given 01/11/2020 1:27 PM EDT 0.5 mg fludeoxyglucose (F-18) FDG injection 0-20 mCi 0-20 mCi, Intravenous, ONCE PRN, 1 dose, Starting on Fri01/11/20 at 1508, Until Fri01/11/20 at 1341, Per Protocol, Radiology Contrast, Routine Given 01/11/2020 1:41 PM EDT 12.2 mCi Right Arm documented in this encounter Care Teams Select Banker Relationship Specialty Start Date End Date Tiny Walters, BATSHEVA [address] [place] [phone] PCP - General Family Medicine 8/5/20 12/11/24 documented as of this encounter
--- OUTSIDE RECORDS SUMMARY | 2024-05-31 01:28 | XMS_ITS | Encounter Summary ---
Author Organization [facility] [place] [address] Care Team Providers Care Community Youth Secretary Name Role Phone Tiny Walters APRN Primary Care Provider +1- [phone] Encounter Details Date Type Department Care Team (Late st Contact Info) Description 01/02/2020 11:20 [place] [phone] COVID-19 ruled out Social History Tobacco Use Types Packs/Day Years [...] EST Office Visit Hematology/Oncolog y at [address] [phone] Tej Tipton MD [address] [facility] HEMATOLOGY [place] [address] Stacy Valle APRN [facility] [place] [address] 06/01/2024 10:30 AM EST Scheduled View [place] [address] 06/01/2024 11:00 AM EST Office [place] [address] Luis E Chin MD [facility] [place] [address] 06/04/2024 8:30 AM EST Hospital Encounter [place] [phone] Rayshawn Suresh MD [facility] [place] [address] 06/04/2024 8:30 AM EST - 06/04/2024 1:05 PM EST Surgery [place] [phone] Rayshawn Suresh MD [facility] [place] [address] @THORACOSCOPY, SURG; W PLEURODESIS (WRVU 10.83) Scheduled [...] Procedure Name Priority Date/Time Associated Diagnosis Comments COVID-19 PCR STAT 01/02/2020 1:14 PM EDT COVID-19 ruled out documented in this encounter Results * COVID-19 PCR (01/02/2020 1:14 PM EDT) SARS-CoV-2 RNA Not Detected Not Detected [facility] Comment: This result should be interpreted in combination with the clinical observations, patient history and epidemiological information. For testing of asymptomatic individuals, assay performance characteristics and clinical utility have not been evaluated. Testing for SARS-CoV-2 (Severe acute respiratory syndrome coronavirus 2, formerly known as 2019 novel coronavirus or 2019-nCoV) to aid in the diagnosis of COVID-19 is performed using the Hernandez RealTime SARS-CoV-2 as authorized by the FDA Emergency Use Authorization (EUA). This EUA assay is intended for In-vitro Diagnostic (IVD) use with respiratory specimens such as nasopharyngeal swabs collected from individuals during the acute phase of infection. This assay is performed based on the instructions for use provided by the [employer] and additional guidance provided by [facility] and FDA. Testing is performed in the [facility] within the Department of Pathology and Laboratory Medicine at [facility], certified under the Clinical Laboratory Improvement Amendments of 1988 (CLIA), 42 U.S.C. section 263a, to perform high complexity tests. Assay performance has been verified according to clinical laboratory regulatory requirements. Test results are provided above. A result of Not Detected indicates that the viral RNA target is not present but does not preclude SARS-CoV-2 infection. False negative results may occur if a specimen is improperly collected, transported or handled; if amplification inhibitors are present; or if inadequate numbers of viral particles are present in the specimen. A result of Detected suggests a current or recent infection and the patient is presumed to be infected. As required or requested by public health authorities, positive specimens may be sent for additional testing. Positive and negative predictive values for this test are highly dependent on disease prevalence. A result of Invalid indicates that neither the viral RNA targets nor the internal control target was detected. An invalid result suggests the presence of inhibitors. Recollection is recommended in the case of an invalid result. CDC COVID-19 criteria for testing on human specimens and clinical management guidance information are available at the CDC Coronavirus Disease 2019 (COVID-19) webpage under Information for Healthcare Professionals (https://www.cdc.gov/coronavirus/2019-ncov/hcp/index.html) Additional information about this and other EUA tests can be found in provider and patient fact sheets at the following FDA website: https://www.fda.gov/medical-devices/feobgrjje-atetspdauk-ryqiggc-devices/emergen -us e-authorizations#oedwc33qha SARS-CoV-2 RNA Source CELL INSTALLER Swab [facility] Nasopharyngeal swab (specimen) 01/02/2020 1:14 PM EDT 01/02/2020 1:14 PM EDT Comment:Symptoms->Asymptomat ic Narrative Resulting Agency Comment Spec In Lab Yrn Banuelos MD MOLECULAR ORDERABLE S Performing Organization Address City/State/[facility] Co de Phone Number [facility] [place] [address] documented in this encounter Visit Diagnoses Diagnosis COVID-19 ruled out documented in this encounter Care Teams Community Youth Secretary Relationship Specialty Start Date End Date Tiny Walters APRN [address] [place] [phone] PCP - General Family Medicine 12/01/19 04/07/24 documented as of this encounter
--- OUTSIDE RECORDS SUMMARY | 2024-05-31 01:28 | XMS_ITS | Encounter Summary ---
[place] [address] Care Team Providers Care Scout Sniper Name Role Phone Tiny Walters APRN Primary Care Provider +1- [phone] Reason for Referral * Diagnostic Test (Emergency) - Closed Specialty Diagnoses / Procedures Referred By Fritz lanier Referred To Contact Radiology Diagnoses Tonsillar tumor Procedures MRI Soft Tissue Neck wwo Contrast [facility] [address] [place] [phone] [facility] Rad Mri [address] [place] [address] Referral ID Status Reason Start Date Expiration Date V isits Requested Visits Authorized [id number] Closed Specialty Service Requested 12/22/2019 12/28/2019 1 1 Encounter Details Date Type Department Care Team (Late Contact Info) Description 12/22/2019 Orders Only [place] [phone] Tova Bryant RN Tonsillar tumor Social History Tobacco Use Types Packs/Day Years [...] EST Office Visit Hematology/Oncolog y at [address] [phone] Tej Tipton MD [address] [facility] HEMATOLOGY & [place] [address] Stacy Valle APRN [facility] [place] [address] 06/01/2024 10:30 AM EST Scheduled View Only [place] [phone] 06/01/2024 11:00 AM EST Office Visit [place] [phone] Luis E Chin MD [facility] [place] [address] 06/04/2024 8:30 AM EST Hospital Encounter [place] [address] Rayshawn Suresh MD [facility] [place] [address] 06/04/2024 8:30 AM EST - 06/04/2024 1:05 PM EST Surgery [place] [address] Rayshawn Suresh MD [facility] [place] [address] @THORACOSCOPY, SURG; W PLEURODESIS (WRVU 10.83) Scheduled [...] * MRI Soft Tissue Neck wwo Contrast (12/28/2019 1:26 PM EDT) Anatomical Region Laterality Modality Neck Magnetic Resonan ce Impressions 12/28/2019 4:34 PM EDT 1. ??A 4.0 cm mass centered in the right palatine tonsil with significant involvement of the right side of the floor of the mouth, and extension back along the styloglossus and stylopharyngeus muscles, and into the right hypoglossus muscle. It abuts the right longus coli muscle with no evidence for such muscular invasion. 2. ??Concern for ruth metastasis to the largest right-sided lateral retropharyngeal lymph node, which is immediately posterior to the tumor. 3. ??No evidence of regional distant metastatic disease. Thank you for letting us participate in the care of this patient. For questions regarding this report, please contact the number below. ? Narrative 12/28/2019 4:34 PM EDT EXAMINATION: MRI SOFT TISSUE NECK WWO CONTRAST CLINICAL HISTORY: Head/neck cancer, staging. TECHNIQUE: MRI of the neck was performed before and after the intravenous administration of 13cc ProHance. COMPARISON: None FINDINGS: There is a mass centered in the right palatine tonsil which measures up to 4.0 cm in AP diameter by 2.0 cm transverse width by 3.9 cm in craniocaudad length. It is predominantly homogeneous with intermediate T2 signal with a few tiny areas of T2 bright signal, and fairly homogeneously enhancing. The mass also shows restricted diffusion. The mass does extend to involve the posterolateral aspect of the tongue and extends into the posterior aspect of the right side of the floor of mouth by at least 2 cm, and involves the right hypoglossus muscle, but does not cross the midline. The tumor does extend mildly back along the right styloglossus muscle as seen on the T1 postcontrast, T2, and DWI images and also along the stylopharyngeus muscle (see arrows on series 10, image 23 and series 8 image 23, for example). The mass abuts the inner cortex of the adjacent mandible with no evidence of mandibular invasion. The tumor also abuts the right medial pterygoid muscle with no evidence for invasion of the muscle. The lower right paratracheal fat is at least displaced if not invaded. The mass does abut the right longus coli muscle with no evidence of muscular invasion (series 10 image 22). Small bilateral retropharyngeal lymph nodes are present. The largest is in the mid right retropharyngeal region which is concerning for ruth metastasis, that measures up to 1.1 cm in greatest axial dimension (series 10 image 25 and series 12 image 26). Otherwise small bilateral cervical lymph nodes are indeterminate, the largest measuring 1.1 cm right level 2A. Procedure Note Peg Waggoner MD - 12/28/2019 EXAMINATION: MRI SOFT TISSUE NECK WWO CONTRAST CLINICAL HISTORY: Head/neck cancer, staging. TECHNIQUE: MRI of the neck was performed before and after the intravenousadministration of 13cc ProHance. COMPARISON: None FINDINGS: There is a mass centered in the right palatine tonsil which measures up to4.0 cm in AP diameter by 2.0 cm transverse width by 3.9 cm in craniocaudadlength. It is predominantly homogeneous with intermediate T2 signal with a fewtiny areas of T2 bright signal, and fairly homogeneously enhancing. The massalso shows restricted diffusion. The mass does extend to involve theposterolateral aspect of the tongue and extends into the posterior aspect of the rightside of the floor of mouth by at least 2 cm, and involves the right hypoglossusmuscle, but does not cross the midline. The tumor does extend mildly back alongthe right styloglossus muscle as seen on the T1 postcontrast, T2, and DWIimages and also along the stylopharyngeus muscle (see arrows on series 10, image 23and series 8 image 23, for example). The mass abuts the inner cortex of theadjacent mandible with no evidence of mandibular invasion. The tumor also abuts theright medial pterygoid muscle with no evidence for invasion of the muscle. Thelower right paratracheal fat is at least displaced if not invaded. The mass doesabut the right longus coli muscle with no evidence of muscular invasion ( image 22). Small bilateral retropharyngeal lymph nodes are present. The largest is inthe mid right retropharyngeal region which is concerning for ruth metastasis,that measures up to 1.1 cm in greatest axial dimension (series 10 image 25 andseries 12 image 26). Otherwise small bilateral cervical lymph nodes areindeterminate, the largest measuring 1.1 cm right level 2A. IMPRESSION 1. A 4.0 cm mass centered in the right palatine tonsil with significant involvement of the right side of the floor of the mouth, and extensionback along the styloglossus and stylopharyngeus muscles, and into the right hypoglossus muscle. It abuts the right longus coli muscle with no evidencefor such muscular invasion. 2. Concern for ruth metastasis to the largest right-sided lateral retropharyngeal lymph node, which is immediately posterior to the tumor. 3. No evidence of regional distant metastatic disease. Thank you for letting us participate in the care of this patient. Forquestions regarding this report, please contact the number below. 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
--- OUTSIDE RECORDS SUMMARY | 2024-05-31 01:28 | XMS_ITS | Encounter Summary ---
Author Organization [facility] [place] [address] Care Team Providers Care Telecommunications Line Installer Name Role Phone Tiny Walters APRN Primary Care Provider +1- [phone] Reason for Visit * Reason Onset Date Comments Prior Authorization 01/04/2020 APPROVAL FAX RECEIVED Encounter Details Date Type Department Care Team (Late Contact Info) Description 01/04/2020 Telephone [place] [phone] Caroline Mercedes Prior Authorization (APPROVAL FAX RECEIVED) Social History Tobacco Use Types Packs/Day Years Used Date Smoking Tobacco: Never Smokeless Tobacco: Never Sex and Gender Information Value Date Recorded Sex Assigned at Not on file Gender Identity Not on file Sexual Orientation Not on file documented as of this encounter Miscellaneous Notes * Telephone Encounter - Caroline Mercedes - 01/04/2020 1:19 PM EDT APPROVAL FAX RECEIVED AND SCANNED TO PATIENT'S CHART. EMAIL TO OFF-SITE STAFF THAT APPROVAL IS RECEIVED AND SCANNED TO PT CHART. documented in this encounter Plan of Treatment Upcoming Encounters Date Type Department Care Team (Late st Contact Info) Description 05/31/2024 11:30 AM EST Office Visit Hematology/Oncolog y at [address] [phone] Tej Tipton MD [address] [facility] HEMATOLOGY & [place] [address] Stacy Valle APRN [facility] [place] [address] 06/01/2024 10:30 AM EST Scheduled View Only Radiation Oncology at [place] [phone] 06/01/2024 11:00 AM EST Office Visit Radiation Oncology at [place] [phone] Luis E Chin MD [facility] [place] [address] 06/04/2024 8:30 AM EST Hospital Encounter [place] [phone] Rayshawn Suresh MD [facility] [place] [address] 06/04/2024 8:30 AM EST - 06/04/2024 1:05 PM EST Surgery Main Operating Room [place] [phone] Rayshawn Suresh MD [facility] [place] [address] @THORACOSCOPY, SURG; W PLEURODESIS (WRVU 10.83) Scheduled [...] on filedocumented in this encounter Care Teams Telecommunications Line Installer Relationship Specialty Start Date End Date Tiny Walters APRN [address] [place] [phone] PCP - General Family Medicine 12/01/19 04/07/24 documented as of this encounter
--- OUTSIDE RECORDS SUMMARY | 2024-05-31 01:28 | XMS_ITS | Encounter Summary ---
Author Organization [facility] [place] [address] Care Team Providers Care Real Estate Administrator Name Role Phone Tiny Walters APRN Primary Care Provider +1- [phone] Encounter Details Date Type Department Care Team (Late st Contact Info) Description 12/22/2019 Orders Only [place] [phone] Mery Siddiqui RN Tonsillar tumor (Primary Dx) Social History Tobacco [...] EST Office Visit Hematology/Oncolog y at [address] [phone] Tej Tipton MD [address] [facility] HEMATOLOGY & [place] [address] [facility] [place] [address] 06/01/2024 10:30 AM EST Scheduled View Only [place] [address] 06/01/2024 11:00 AM EST Office Visit [place] [address] Luis E Chin MD [facility] [place] [address] 06/04/2024 8:30 AM EST Hospital Encounter [place] [phone] [facility] [place] [address] 06/04/2024 8:30 AM EST - 06/04/2024 1:05 PM EST Surgery [place] [phone] [facility] [place] [address] @THORACOSCOPY, SURG; W PLEURODESIS (WRVU 10.83) Scheduled [...] system documented in this encounter Care Teams Real Estate Administrator Relationship Specialty Start Date End Date Tiny Walters APRN [address] [place] [phone] PCP - General Family Medicine 12/01/19 04/07/24 documented as of this encounter
--- OUTSIDE RECORDS SUMMARY | 2024-05-31 01:28 | XMS_ITS | Encounter Summary ---
Author Organization [facility] [place] [address] Care Team Providers Care Floor Clerk Name Role Phone [place] Tiny Lindsay APRN Primary Care Provider +1- [phone] Encounter Details Date Type Department Care Team (Late Contact Info) Description 01/21/2020 Telephone [place] [phone] Jamari Bernardo RN Social History Tobacco Use Types Packs/Day Years Used Date Smoking Tobacco: Never Smokeless Tobacco: Never Alcohol Use Standard Drinks/Week Comments Yes 0 (1 standard drink = 0.6 oz pur e alcohol) Sex and Gender Information Value Date Recorded Sex Assigned at Not on file Gender Identity Not on file Sexual Orientation Not on file documented as of this encounter Miscellaneous Notes * Telephone Encounter - Jamari Bernardo RN - 01/21/2020 10:47 AM EDT Spoke with Zen. Told him he could take Tylenol for migraines leading up to surgery (could not take Aspirin, Ibuprofen, or Exedrin). Told him he would need a covid test 48-72 hours prior and the Covid tin dipper would be calling in the next day or two to schedule. VALARIE Henley, guitar repairer Triage Nurse documented in this encounter Plan of Treatment Upcoming Encounters Date Type Department Care Team (Late Contact Info) Description 05/31/2024 11:30 AM EST Office Visit Hematology/Oncolog y at [address] [phone] Tej Tipton MD [address] [facility] HEMATOLOGY & [place] [address] Stacy Valle APRN [facility] [place] [address] 06/01/2024 10:30 AM EST Scheduled View [place] [address] 06/01/2024 11:00 AM EST Office Visit [place] [phone] Luis E Chin MD [facility] [place] [address] 06/04/2024 8:30 AM EST Hospital Encounter [place] [address] Rayshawn Suresh MD [facility] [place] [address] 06/04/2024 8:30 AM EST - 06/04/2024 1:05 PM EST Surgery [place] [address] Rayshawn Suresh MD [facility] [place] [address] @THORACOSCOPY, SURG; W PLEURODESIS (WRVU 10.83) Scheduled [...] on filedocumented in this encounter Care Teams Floor Clerk Relationship Specialty Start Date End Date Tiny Walters, BATSHEVA [address] [place] [phone] PCP - General Family Medicine 12/01/19 04/07/24 documented as of this encounter
--- OUTSIDE RECORDS SUMMARY | 2024-05-31 01:28 | XMS_ITS | Encounter Summary ---
Author Organization [facility] [place] [address] Care Team Providers Care Paper Products Printer Name Role Phone Tiny Walters APRN Primary Care Provider [phone]- [phone] Reason for Visit * Reason Onset Date Comments Other 01/17/2020 NPW-Confimed maria a t. Rad/onc & Hem/Onc Encounter Details Date Type Department Care Team (Late Contact Info) Description 01/17/2020 Telephone Radiation Oncology at [address] [phone] Caryn Child Other (NPW-Confimed appt. Rad/onc & Hem/Onc) Social History Tobacco Use Types Packs/Day Years [...] EST Office Visit Hematology/Oncolog y at [address] [phone] Tej Tipton MD [address] [facility] [place] [address] Stacy Valle APRN [facility] [place] [address] 06/01/2024 10:30 AM EST Scheduled View Only [place] [address] 06/01/2024 11:00 AM EST Office Visit [place] [address] Luis E Chin MD [facility] [place] [address] 06/04/2024 8:30 AM EST Hospital Encounter [place] [address] Rayshawn Suresh MD [facility] [place] [address] 06/04/2024 8:30 AM EST - 06/04/2024 1:05 PM EST Surgery [place] [address] Rayshawn Suresh MD [facility] [place] [address] @THORACOSCOPY, SURG; W PLEURODESIS (WRVU 10.83) Scheduled [...] on filedocumented in this encounter Care Teams Paper Products Printer Relationship Specialty Start Date End Date Tiny Walters APRN [address] [place] [phone] PCP - General Family Medicine 12/01/19 04/07/24 documented as of this encounter
--- OUTSIDE RECORDS SUMMARY | 2024-05-31 01:28 | XMS_ITS | Encounter Summary ---
Author Organization [facility] Address [facility] [place] [address] Care Team Providers Care Utilization Specialist Name Role Phone Tiny Walters APRN Primary Care Provider [phone]- [phone] Reason for Visit * Auth/Cert Specialty Diagnoses / Procedures Referred By Fritz lanier Referred To Contact Diagnoses Tonsil cancer Tonsil cancer Procedures PRO LARYNGOSCOPY, DIRCT, OP SCOPE, BIOPSY LARYNGOSCOPY, MICROSCOPE, WITH BIOPSY (WRVU 3.55) Referral ID Status Reason Start Date Expiration Date Visits Re quested Visits Authorized [id number] 1 1 Encounter Details Date Type Department Care Team (Late st Contact Info) Description 01/05/2020 1:20 PM EDT Anesthesia Event [place] [phone] Jose Davis MD [facility] DR [place] [address] Delmar Pinto MD [facility] [place] [address] Anesthesia Record Procedure Summary Procedure Name Responsible Anesthesiologist Anesthesia Start Time Anesthesia Stop Time LARYNGOSCOPY, MICROSCOPE, WITH BIOPSY (WRVU 3.55) (Bilateral: Throat) Jose Davis MD 01/05/20 1320 01/05/20 1439 Events Date Time Event Comment 01/05/2020 1303 1320 AN Verify 1320 Start 1320 An Start Data 1326 An Induction 1327 An Intubation 1330 Anesthesia Ready 1333 Procedure Start 1409 Procedure Stop 1429 Extubation/LMA Out 1429 an stop data 1439 Recovery or ICU Handoff Carmen ent care was transferred to the destination unit staff after review of the patient's medical history, current anesthetic/surgical status and plan, according to the Provider Handoff Checklist. 1439 Stop Meds Name Total Midazolam 2 mg fentaNYL 100 mcg IV Lidocaine 100 mg Propofol 300 mg Rocuronium 40 mg Ondansetron 4 mg Dexamethasone 8 mg Neostigmine 5 mg Glycopyrrolate 0.6 mg Succinylcholine 100 mg clindamycin (CLEOCIN) 300mg in dextrose 5% 50mL 300 mg Propofol INF 513.13 mg lactated ringers infusion 400 mL * Agents Name O2 Air N2O Sevoflurane (et) * Blood No blood administrations on file. Lines, Drains, and Airways Type Details Placement Removal ETT Mask Ventilation: Ea sy (1); ETT Type: Cuffed, TIEN; ETT Size: 7 mm; Indirect: Video; Notes: Asleep, Pre-O2, Stylette; Attempts: 1; Laryngoscopy Grade: 1; ETT Placement Verified By: Auscultation, Capnometry, Visual; Inserted by: Millie; Removal Date: 01/05/20; Removal Time: 14201/05/20 132 by Delmar Pinto MD 01/05/20 142 by Delmar Pinto MD documented in this encounter Social History Tobacco Use Types Packs/Day Years Used Date Smoking Tobacco: Never Smokeless Tobacco: Never Sex and Gender Information Value Date Recorded Sex Assigned at Not on file Gender Identity Not on file Sexual Orientation Not on file documented as of this encounter OR Notes * Anesthesia Postprocedure Evaluation - Delmar Pinto MD - 01/05/2020 2:40 PM EDT Department of Anesthesiology Post-procedure Note Patient: Zen Pickering Procedure Summary Date: 01/05/20 Room / Location: [facility] MAIN OR Anesthesia Start: 1320 Anesthesia Stop: 143 Procedure: LARYNGOSCOPY, MICROSCOPE, WITH BIOPSY (WRVU 3.55) (Bilateral Throat) Diagnosis: (Tonsil cancer) Surgeon: Yrn Banuelos MD Responsible Provider: Jose Davis MD Anesthesia Type: general ASA Status: 2 All Anesthesia Providers: Anesthesiologist: Jose Davis MD Analyst Microbiology Lab: Delmar Pinto MD Vitals Value Taken Time BP Temp Pulse Resp SpO2 Pain Level Patient Location: PACU/[facility] Level of Consciousness: Conscious but Sleepy Pain Management: Satisfactory Analgesia PONV: None Cardiovascular Status: At Baseline and Hemodynamically Stable Respiratory Status: Stable Respiratory Status and Supplemental O2 (NC or FM) Postoperative Fluid Status: Intravascular EUvolemia Possible Anesthetic Complications: NONE apparent at time of evaluation Final Primary Anesthesia Type: General (The anesthetic type performed was the same as planned.) Comments: Delmar Pinto MD * Anesthesia Preprocedure Evaluation - Delmar Pinto MD - 01/04/2020 7:13 PM EDT Pre-Anesthesia Evaluation for: Zen Pickering a 39 y.o. male. Procedure(s): LARYNGOSCOPY, MICROSCOPE, WITH BIOPSY (VU 3.55) Patient Active Problem List Diagnosis ??? Tonsillar tumor No past medical history on file. No past surgical history on file. Social History Tobacco Use ??? Smoking status: Never Smoker ??? Smokeless tobacco: Never Used Substance Use Topics ??? Alcohol use: Not on file Social History Substance and Sexual Activity Drug Use Not on file No Known Allergies Medications: MAR and/or home medications have been reviewed. Physical Exam: No data found. There is no height or weight on file to calculate BMI. Airway Assessment: Mallampati: III TM distance: >3 FB Neck ROM: full Tight mouth opening (vertical distance ~2 finger breadths) Cardiovascular Assessment: cardiovascular exam normal Pulmonary Assessment: pulmonary exam normal Dental Assessment: Misc Assessment: Anesthesia Plan: ASA 2 general, with a(n) intravenous induction Zen Pickering is a 39 y.o. male (BMI 28) with a hx significant for R tonsillar tumor presenting for laryngoscopy and biopsies with Dr. Banuelos. PMHx: above. Also mild asthma, largely seasonal/exercise induced. No recent inhaler use. Additionally has been told he may have OPHELIA, but no CPAP at this point. NPO adequate. Activity prior to surgery: METS>4. Meds: Current Outpatient Medications on File Prior to Encounter: venlafaxine (Effexor) 25 mg Tablet, Take 25 mg by mouth 3 times daily., Disp: , Rfl: albuteroL 90 mcg/actuation HFA Aerosol Inhaler, Inhale 2 puffs into the lungs every 4 hours as needed for Wheezing. Use with spacer, Disp: , Rfl: Allergies No Known Allergies Anesthesia Hx: Past airway: NA Pt denies past complications from anesthesia and any family hx of complications with anesthesia. EKG: NA ECHO: NA Labs: NA Pertinent Imaging: NA Plan is for GA with TIEN ETT, standard ASA monitors, and adequate IV access. Delmar Pinto MD 01/04/2020 Region - Other Informed Consent: Anesthetic plan and risks discussed with patient and spouse. Plan discussed with attending and resident. PAT Clinic Note documented in this encounter Plan of Treatment Upcoming Encounters Date Type Department Care Team (Late st Contact Info) Description 05/31/2024 11:30 AM EST Office Visit Hematology/Oncolog y at [address] [phone] Tej Tipton MD [address] [facility] [address] [place]OLOGY [place] [address] Stacy Valle APRN [facility] [place] [address] 06/01/2024 10:30 AM EST Scheduled View [place] [address] 06/01/2024 11:00 AM EST Office Visit [place] [phone] Luis E Chin MD [facility] [place] [address] 06/04/2024 8:30 AM EST Hospital Encounter Main Operating Room [facility] [place] [address] Rayshawn Suresh MD [facility] [place] [address] 06/04/2024 8:30 AM EST - 06/04/2024 1:05 PM EST Surgery [place] [phone] Rayshawn Suresh MD [facility] [place] [address] @THORACOSCOPY, SURG; W PLEURODESIS (WRVU 10.83) Scheduled [...] Indication for (Active or Suspected): Prophylaxis Given 01/05/2020 1:36 PM EDT 300 mg dexamethasone (Decadron) injection PRN, Starting on Fri01/05/20 at 1336, Until Fri01/05/20 at 1439, Anesthesia Intra-op, Routine Given 01/05/2020 1:36 PM EDT 8 mg fentaNYL 50 mcg/mL multi-dose injection PRN, Starting on Fri01/05/20 at 1326, Until Fri01/05/20 at 1439, Anesthesia Intra-op, Routine Given 01/05/2020 1:26 PM EDT 100 mcg glycopyrrolate (ROBINUL) multi-dose injection PRN, Starting on Fri01/05/20 at 1408, Until Fri01/05/20 at 1439, Anesthesia Intra-op, Routine Given 01/05/2020 2:08 PM EDT 0.6 mg lactated ringers infusion 1,000 mL, at 100 mL/hr, Intravenous, CONTINUOUS, Starting on Fri01/05/20 at 1315, Until Fri01/05/20 at 1604, Day of Surgery (Day of Procedure) New Bag 01/05/2020 1:20 PM EDT lidocaine (PF) (XYLOCAINE) 100 mg/5 mL (2 %) injection PRN, Starting on Fri01/05/20 at 1326, Until Fri01/05/20 at 1439, Anesthesia Intra-op, Routine Given 01/05/2020 1:26 PM EDT 100 mg midazolam (PF) (VERSED) multi-dose injection PRN, Starting on Fri01/05/20 at 1320, Until Fri01/05/20 at 1439, Anesthesia Intra-op, Routine Given 01/05/2020 1:20 PM EDT 2 mg neostigmine (BLOXIVERZ) injection PRN, Starting on Fri01/05/20 at 1408, Until Fri01/05/20 at 1439, Anesthesia Intra-op, Routine Given 01/05/2020 2:08 PM EDT 5 mg ondansetron (ZOFRAN) injection PRN, Starting on Fri01/05/20 at 1411, Until Fri01/05/20 at 1439, Anesthesia Intra-op, Routine Given 01/05/2020 2:11 PM EDT 4 mg propofoL (Diprivan) 10 mg/mL bolus injection (Anesthesia) PRN, Starting on Fri01/05/20 at 1326, Until Fri01/05/20 at 1439, Anesthesia Intra-op Given 01/05/2020 1:27 PM EDT 100 mg Given 01/05/2020 1:26 PM EDT 200 mg propofoL (Diprivan) infusion CONTINUOUS PRN, Starting on Fri01/05/20 at 1328, Until Fri01/05/20 at 1439, Anesthesia Intra-op, Routine Rate/Dose Change 01/05/2020 1:33 PM EDT 150 mcg/kg/min 73.9 mL/hr New Bag 01/05/2020 1:28 PM EDT 200 mcg/kg/min 98.5 mL/h r rocuronium (ZEMURON) multi-dose injection PRN, Starting on Fri01/05/20 at 1333, Until Fri01/05/20 at 1439, Anesthesia Intra-op, Routine Given 01/05/2020 1:46 PM EDT 10 mg Given 01/05/2020 1:33 PM EDT 30 mg succinylcholine chloride (Quelicin) injection PRN, Starting on Fri01/05/20 at 1326, Until Fri01/05/20 at 1439, Anesthesia Intra-op, Routine Given 01/05/2020 1:26 PM EDT 100 mg documented in this encounter Care Teams Utilization Specialist Relationship Specialty Start Date End Date Tiny Walters APRN [address] [place] [phone] PCP - General Family Medicine 12/01/19 04/07/24 documented as of this encounter
--- OUTSIDE RECORDS SUMMARY | 2024-05-31 01:28 | XMS_ITS | Encounter Summary ---
Author Organization [facility] Address [facility] [place] [address] Care Team Providers Care Rail Loader Name Role Phone Tiny Walters APRN Primary Care Provider [phone] Reason for Visit * Auth/Cert Specialty Diagnoses / Procedures Referred By Fritz lanier Referred To Contact Diagnoses r/o tonsil cancer Procedures PRO REMOVAL OF TONSILS, 12+ Y/O Tonsillectomy Referral ID Status Reason Start Date Expiration Date Visits Re quested Visits Authorized [id number] 1 1 Encounter Details Date Type Department Care Team (Late st Contact Info) Description 01/28/2020 11:22 AM EDT - 01/28/2020 1:01 PM EDT Surgery [place] [phone] Tiffany Banuelos MD [facility] [place] [place] [address] TONSILLECTOMY AGE 12 AND OVER (WRVU 3.45) Social History Tobacco Use Types Packs/Day Years [...] Sign Reading Time Taken Comments Blood Pressure 129/73 01/28/2020 10:27 AM EDT Pulse 59 01/28/2020 10:27 AM EDT Temperature 36.5 ??C (97.7 ??F) 01/28/2020 10:27 AM E DT Respiratory Rate 16 01/28/2020 10:27 AM EDT Oxygen Saturation 100% 01/28/2020 10:27 AM EDT Inhaled Oxygen Concentration - - Weight - - Height - - Body Mass Index - - documented in this encounter Discharge Instructions * Patient Instructions* Tiffany Banuelos MD - 01/28/2020 1:05 PM EDT POST SURGERY INSTRUCTIONS: TONSILLECTOMY Go home, rest, use caution on stairs. Change positions slowly. Diet light to regular as tolerated today. If nausea occurs start with clear liquids and progress slowly. No driving, operating machinery, alcoholic beverages and no important decisions for 24 hours. Monitor IV site for signs and symptoms of infection: increasing redness, swelling, foul drainage, if occurs contact M.D. You will have a sore throat from the procedure as well as having an endotracheal tubes (this tube, used by anesthesia department, is passed down your throat after you are asleep, to ensure safe air passage during your operation). A sore throat is normal due to this tube. Cold liquids or soothing lozenges will help ease the discomfort. Please take a soft to liquid diet for the next week. Make sure that you remain well hydrated for the next week. If your urine becomes smelly or darker colored, you have to drink more fluids. If you become unable to drink fluids in view of the pain, despite the use of pain killers, you should be seen in an emergency department The generalized muscle aches are due to the medication given to you just before the tube is inserted. As the medication wears off, you may develop muscle soreness, which usually goes away in 12-24 hours. Use the prescription pain medicine if Tylenol is not sufficient to control your pain. The narcotic will make you feel drowsy and sleepy. Use an ice collar on the outside of your neck to help soothe the pain You will have a follow-up visit scheduled for you, if this was not already arranged at the time of booking your surgery. At that visit, your future plan of care will be discussed. Should you have questions, please call [phone] during business hours. After hours, call [phone] and ask to speak with the ENT resident boilermaker assembly and erection. YOU HAVE BEEN PRESCRIBED AN OPIOID MEDICATION PART OF YOUR TREATMENT FOR PAIN: It is important to remember the following when taking your medication: - Take your medication exactly as prescribed. -Read all instructions that come with your medication. - Using this drug may cause addiction. While addiction is more common in people with a personal or family history of addiction, it can occur in anyone. -Taking more than the prescribed amount of medication or using with alcohol or other drugs can cause you to stop breathing resulting in coma, brain damage, or . - Opioids can slow reaction time, cause drowsiness, or cloud judgment.It may be unsafe for you to drive or operate heavy machinery while taking your medication. -Opioids are at risk of being diverted by anyone with access to your home. Opioids should be stored in a safe and secure place, such as a locked cabinet or safe. - Unused opioids should be disposed of according to the label or patient information. If there are no specific instructions, medications may be returned to a take-back location or mixed with a small amount of water and an undesirable waste substances such as used coffee grounds or cat litter. Future Appointments Date Time Provider Department Center 02/11/2020 9:30 AM Mehran Lewis PA [facility] 02/11/2020 10:[address] [facility] HEM ONC [facility] 02/11/2020 12:50 PM [facility] IR ROOM 4 IR [facility] Rad 02/14/2020 9:30 AM Gume Christy MD [facility] Hem Off [facility] 02/14/2020 10:[address] [facility]FUSION, ROOM J Hem Inf [facility] 02/14/2020 11:[address] [facility] Hem Off [facility] 02/23/2020 10:30 AM Carrie Jacob SLP [facility] Hem Off [facility] documented in this encounter Medications at Time [...] as of this encounter Progress Notes * Griffin Solorio RN - 01/28/2020 2:57 PM EDT Patient discharge to home. IV removed, site benign. My assessment remains unchanged from my previous assessment. RN Discussed pain management with patient, pain tolerable. Patient medicated prior to discharge. Patient has all belongings and supplies needed. Patient received After Visit Summary and p rescriptions. These were reviewed, patient and verbalizes understanding of AVS. All questions answered. Patient encouraged to call with questions or concerns. Patient discharged to home with family. * Miranda Brennan RN - 01/25/2020 9:00 AM EDT [facility] Interventional Radiology ? Interventional Radiology Nursing and/or providers have determined that this patient is not a candidate for moderate sedation based on the criteria below: 1. Mallampati of 4 2. Patient with ALS or MS and questionable airway or sleep apnea. 3. Inability to clear own secretions/on aspiration precautions. 4. Recent ENT surgery within 1 week (neck dissections, glossectomies). State reason: new trach (cuffed vs. non cuffed). Should be on a case by case basis after getting report from the nurse. 4. Combative/inability to hold still for procedure/unable to follow commands (such as take a deep breath, breathe???the non-verbal, severely disabled people). 5. Inability to lay flat. 6. Patient refused moderate sedation. 7. Unstable vital signs. 8. Tremors (MRI only). 9. Pt is not NPO per protocol. 10. Pt. is on a ventilator in ICU. 11. Previous inability to tolerate procedure with IV sedation. 13. PT ON CPAP OR BIPAP (MRI???S ONLY) PLEASE WRITE A NOTE AND/OR CORRESPONDING NUMBER STATING REASON: #1--Pt has trismus (lockjaw) which precludes the ability to safely administer moderate sedation forprocedures. documented in this encounter H&P Notes * Tiffany Banuelos MD - 01/28/2020 11:25 AM EDT 24 hour update The patient's recent physical exam is reviewed. There are no changes to the physical findings or indications for the procedure.We reviewed again the perioperative course and post-operative instructions, as well as complications. No change in trismus or pain. No new infection Patient has proper understanding and the patient's questions are answered. Tiffany Banuelos MD Otolaryngology-Head and Neck Surgery documented in this encounter Miscellaneous Notes * Op Note - Tiffany Banuelos MD - 01/28/2020 2:58 PM EDT [facility] Operative Note Patient Name: Zen Pickering : [id number] MR#: [id number] Case Date: 01/28/2020 Surgeon: Surgeon(s) and Role: * Tiffany Banuelos MD - Primary * Anmol Hall MD - Fellow Preoperative diagnosis: r/o tonsil cancer Postoperative diagnosis: r/o tonsil cancer Procedure(s) (LRB): TONSILLECTOMY AGE 12 AND OVER (WRVU 3.45) (Left) Anesthesia: General Estimated Blood Loss: 25 mL Specimens removed during surgery: Order Name Source Comment Collection Info Order Time SPECIMEN TO PATHOLOGY r/o tonsil cancer left tonsil excision No 01/28/2020 12:34 PM Time specimen removed from patient: 12:32 PM Number of tissue samples (in container) 1 Biospecimen to store? No Drains: * No LDAs found * Surgical Closure: na Disposition: awakened from anesthesia, extubated and taken to the recovery room in a stable condition, having suffered no apparent untoward event. 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 After discussion with the patient and his spouse, we decided to take the patient back to the operating room for a left sided tonsillectomy to see whether we could improve on his left sided sore throat and OPHELIA. We discussed that there was a slight possibility that we may identify a separate tonsil cancer. Patient and spouse discussed with me extensively the postoperative course as well as potential complications. Patient has significant trismus which limits his ability to expose his tonsil fossa fully. We discussed the possibility that we may not be able to do the left tonsillectomy. Procedure Description: After the patient was identified and brought to the operating room and placed in supine position. He was intubated by general anesthesia using a articulated bougie. Using an RAtube the airway was secured. A timeout was completed as standard. The bed was turned 90 degrees. Using a McIvor oral retractor examination of the oral cavity and a otolaryngologic exam was done. He still has significant trismus of about 3 cm. The tumor within the right tonsil and right base of tongue has not changed significantly in size. It is slightly friable. The then exposed the left tonsil region. Palpation did not reveal any obvious tumor. The left tonsil is large and does not appear to be fixed to any underlying structures. Using a bipolar cautery the anterior and posterior pillars were defined. The tonsil capsuleidentified and then dissected to very slowly expose the tonsil fossa. There were some difficulties with complete exposure on the basis of the limitations and overall mouth opening. We were able however to complete the tonsillectomy. All bleeding vessels were controlled using bipolar cautery. The wound was then irrigated. The specimen was submitted to the lab. Quarter percent Marcaine was then instilled in the left tonsil region to help with postop management. Patient's anesthesia was reversed, patient extubated and transferred home in stable condition. All counts were correct Infection Bundle used? N/A Attestation: Case Date: 01/28/2020 I performed this procedure without the involvement of a resident. TIFFANY BANUELOS MD 01/30/2020 * Brief Op Note - Tiffany Banuelos MD - 01/28/2020 12:55 PM EDT Brief Operative Note Patient Name: Zen Pickering : [id number] MR#: [id number] Case Date: 01/28/2020 Surgeon: Surgeon(s) and Role: * Tiffany Banuelos MD - Primary * Anmol Hall MD - Fellow Preoperative diagnosis: r/o tonsil cancer Postoperative diagnosis: r/o tonsil cancer, OPHELIA, chronic tonsillitis Procedure(s) (LRB): TONSILLECTOMY AGE 12 AND OVER (WRVU 3.45) (Left) Anesthesia: Anesthesia type not filed in the log. Findings: cryptic 3+ left tonsil with debris. Sizeable R tonsil tumor unchanged for prior endoscopy Complications: none Intake: Intraprocedure Crystalloid Total Intake lactated ringers infusion 300.00 mL Total Intake 300 mL Output Blood Loss 25 mL Total Output 25 mL Net Net Volume 275 mL Transfusion No data found in the last 1 encounters. Output: Estimated Blood Loss: 25 mL Urine Output:: (no urine output recorded) Other Output: (no other output recorded) Drains: none Specimens removed during surgery: Order Name Source Comment Collection Info Order Time SPECIMEN TO PATHOLOGY r/o tonsil cancer left tonsil excision No 01/28/2020 12:34 PM Time specimen removed from patient: 12:32 PM Number of tissue samples (in container) 1 Biospecimen to store? No Disposition: awakened from anesthesia, extubated and taken to the recovery room in a stable condition, having suffered no apparent untoward event. Condition: doing well without problems Attestation: Case Date: 01/28/2020 I performed this procedure without the involvement of a resident. (Please see the Surgical Encounter Summary for any Implant and Specimen details pertinent to this patient.) Infection Bundle used? N/A documented in this encounter Plan of Treatment Upcoming Encounters Date Type Department Care Team (Late st Contact Info) Description 05/31/2024 11:30 AM EST Office Visit Hematology/Oncolog y at [address] [phone] Tej Tipton MD [address] [facility] HEMATOLOGY & [place] [address] Stacy Valle APRN [facility] [place] [address] 06/01/2024 10:30 AM EST Scheduled View [place] [phone] 06/01/2024 11:00 AM EST Office Visit [place] [phone] Luis E Chin MD [facility] [place] [address] 06/04/2024 8:30 AM EST Hospital Encounter Main [place] [phone] Rayshawn Suresh MD [facility] [place] [address] 06/04/2024 8:30 AM EST - 06/04/2024 1:05 PM EST Surgery Main [place] [phone] Rayshawn Suresh MD [facility] [place] [address] @THORACOSCOPY, SURG; W PLEURODESIS (WRVU 10.83) Scheduled [...] Associated Diagnosis Comments SURGICAL PATHOLOGY REPORT Routine 01/28/2020 12:34 PM EDT SPECIMEN TO PATHOLOGY Routine 01/28/2020 12:34 PM EDT Removal Of Tonsils, 12+ Y/O ([id number]) 01/28/2020 11:51 AM EDT r/o tonsil cancer TONSILLECTOMY OVER AGE 12 Routine 01/28/2020 10:14 AM EDT documented in this encounter Results * Surgical Pathology Report (01/28/2020 12:34 PM EDT) Final Diagnosis [id number] ? Location: [facility]; The signing pathologist has (i) examined the relevant preparation(s) for the specimen(s) and (ii) rendered or confirmed the diagnosis(es). . ?Surgical Pathology DIAGNOSIS Left tonsil, excision: - Reactive follicular lymphoid hyperplasia. - Actinomyces colonization. - There is no evidence of malignancy. Electronically signed by: ??MD Samantha, Ruel Aquino Verified: ??02/03/2020 ?Pathologist Performed at: ??-[facility] Dept. of Pathology, [place], [place] DISCUSSION The entire specimen was submitted for histology. SPECIMEN(S) SUBMITTED A - left tonsil, excision (1) CLINICAL INFORMATION R/O tonsil cancer SPECIMEN PROCESSING A - Labeled/Fixativ e: Left tonsil, fresh. Quantity/Size: Single, 3.0 x 2.5 x 1.1 cm. Tissue Description: Jennings-pink, rubbery, focally hemorrhagic tonsil. With cauterized resection margin, the resection margin is inked blue. Cut surfaces are pink sheehan and nodular appearing. Sections/Proces sing: Inked, serially sectioned and entirely submitted in 12 cassettes labeled A1-A12. ??SAS 02/03/2020 10:32 AM EDT [facility] BILATERAL PALATINE TONSILS / Unknown 01/28/2020 12:34 PM EDT 01/28/2020 12:34 PM EDT Tiffany Banuelos MD PATHOLOGY/CYTOLOGY ORDERABLES Performing Organization Address City/[facility]/ZIP Co de Phone Number [facility] [place] [address] * Specimen to Pathology (01/28/2020 12:34 PM EDT) AP Specimen 01/28/2020 12:3 4 PM EDT 01/28/2020 12:34 PM EDT Narrative [facility] - 01/28/2020 12:34 PM EDT Specimen requisition ordered. ??Separate Pathology report to follow Tiffany Banuelos MD PATHOLOGY/CYTOLOGY ORDERABLES Performing Organization Address [facility]/ZIP Co de Phone Number [facility] [place] [address] documented in this encounter Visit Diagnoses Not on filedocumented in this encounter Administered Medications Inactive Administered Medications - up to 3 most recent administrations Medication Order MAR Action Action Date Dose Rate Site acetaminophen (Tylenol) tablet 1,000 mg 1,000 mg, Oral, EVERY 8 HOURS, First dose on Fri01/28/20 at 1330, Until Discontinued, Not to exceed 4,000 mg acetaminophen from all sources per 24 hours. Begin oral analgesics when WELDER PLASMA ARC is discontinued., Routine Given 01/28/2020 2:52 PM EDT 1,000 mg BUpivacaine (PF) (MARCAINE) 0.25 % (2.5 mg/mL) injection ONCE PRN, Starting on Fri01/28/20 at 1251, Until Fri01/28/20 at 1658, Intra-Operative (Intra-Procedure), Routine Given 01/28/2020 12:51 PM EDT 5 mLs oxyCODONE (Roxicodone) tablet 5 mg 5 mg, Oral, EVERY 4 HOURS PRN, Starting on Fri01/28/20 at 1327, Until Fri01/28/20 at 1457, Pain, moderate pain, May repeat 5 mg dose once in 30 minutes if pain not relieved. Begin oral analgesics when WELDER PLASMA ARC is discontinued. MAY USE IN SUSPENSION IF AVAILABLE, PACU Recovery, Routine Given 01/28/2020 1:31 PM EDT 5 mg documented in this encounter Active and Recently Administered Medications Times are shown in EDT. Scheduled Medication Order 01/26/2020 01/27/2020 01/28/2020 acetaminophen (Tylenol) tablet 1,000 mg 1,000 mg, Oral, EVERY 8 HOURS, First dose on Fri01/28/20 at 1330, Until Discontinued, Not to exceed 4,000 mg acetaminophen from all sources per 24 hours. Begin oral analgesics when WELDER PLASMA ARC is discontinued., Routine 1452 (Given - Provid er: Griffin Solorio RN) clindamycin (CLEOCIN) 300mg in dextrose 5% 50mL (COMPLETED) 300 mg, Intravenous, 30 MIN PRE-OP, 1 dose, On Fri01/28/20 at 1045, Administer over 10 Minutes, Day of Surgery (Day of Procedure), Indication for (Active or Suspected): Prophylaxis 1205 (Given - Provid er: Jacob Mcbride MD) Continuous Medication Order 01/26/2020 01/27/2020 01/28/2020 lactated ringers infusion (CANCELED) 1,000 mL, at 100 mL/hr, Intravenous, CONTINUOUS, Starting on Fri01/28/20 at 1045, Until Fri01/28/20 at 1457, Day of Surgery (Day of Procedure) 1144 (New Bag - Prov ider: Jacob Mcbride MD)1218 (Anesthesia Volume Adjustment - Provider: Jacob Mcbride MD) lactated ringers infusion 1,000 mL, at 100 mL/hr, Intravenous, CONTINUOUS, Starting on Fri01/28/20 at 1330, Until Fri01/28/20 at 1658 1330 (Due) PRN Medication Order 01/26/2020 01/27/2020 01/28/2020 BUpivacaine (PF) (MARCAINE) 0.25 % (2.5 mg/mL) injection (CANCELED) ONCE PRN, Starting on Fri01/28/20 at 1251, Until Fri01/28/20 at 1658, Intra-Operative (Intra-Procedure), Routine 1251 (Given - Provid er: Tiffany Banuelos MD) oxyCODONE (Roxicodone) tablet 5 mg (CANCELED) 5 mg, Oral, EVERY 4 HOURS PRN, Starting on Fri01/28/20 at 1327, Until Fri01/28/20 at 1457, Pain, moderate pain, May repeat 5 mg dose once in 30 minutes if pain not relieved. Begin oral analgesics when WELDER PLASMA ARC is discontinued. MAY USE IN SUSPENSION IF AVAILABLE, PACU Recovery, Routine 1331 (Given - Provid er: Griffin Solorio RN) documented in this encounter Care Teams Rail Loader Relationship Specialty Start Date End Date Tiny Walters APRN [address] [place] [phone] PCP - General Family Medicine 12/01/19 04/07/24 documented as of this encounter
--- OUTSIDE RECORDS SUMMARY | 2024-05-31 01:28 | XMS_ITS | Encounter Summary ---
Author Organization [place] [address] Care Team Providers Care [employer] Set Up Technician Name Role Phone Tiny Walters APRN Primary Care Provider +1- [phone] Reason for Visit * Auth/Cert Specialty Diagnoses / Procedures Referred By Fritz lanier Referred To Contact Diagnoses Tonsil cancer Tonsil cancer Procedures PRO LARYNGOSCOPY, DIRCT, OP SCOPE, BIOPSY LARYNGOSCOPY, MICROSCOPE, WITH BIOPSY (WRVU 3.55) Referral ID Status Reason Start Date Expiration Date Visits Re quested Visits Authorized [id number] 1 1 Encounter Details Date Type Department Care Team (Latest Contact Info) Description 01/05/2020 12:33 PM EDT - 01/05/2020 4:04 PM EDT Hospital [place] [address] Tiffany Banuelos MD [facility] [place] [address] Discharge Disposition: Home Social History Tobacco Use Types Packs/Day Years Used Date Smoking Tobacco: Never Smokeless Tobacco: Never Sex and Gender Information Value Date Recorded Sex Assigned at Not on file Gender Identity Not on file Sexual Orientation Not on file documented as of this encounter Last Filed Vital Signs Vital Sign Reading Time Taken Comments Blood Pressure 136/83 01/05/2020 3:15 PM EDT Pulse 50 01/05/2020 3:15 PM EDT Temperature 36.8 ??C (98.2 ??F) 01/05/2020 2:37 PM ED T Respiratory Rate 16 01/05/2020 3:15 PM EDT Oxygen Saturation 100% 01/05/2020 3:15 PM EDT Inhaled Oxygen Concentration - - Weight 82.1 kg (181 lb) 01/05/2020 12:52 PM EDT Height 170.2 cm (5' 7.01) 01/05/2020 12:52 PM E DT Body Mass Index 28.34 01/05/2020 12:52 PM EDT documented in this encounter Discharge Instructions * Discharge Instructions* Michlele Schuler RN - 01/05/2020 2:42 PM EDT [...] -You can reach the ENT clinic at [phone] for appointment questions. -The ENT triage nurse is available at [phone] -For urgent issues during evenings (5 PM - 7 AM) and weekends the ENT resident production maintenance mechanic can be reached through the main hospital back up machine operator at [phone] Follow Up: You will need to follow up with ENT in 7-10 days. This appointment has been requested. You will be notified once it is scheduled, if you do not already see it below. If you do not hear from us in a timely manner, please call to receive your date and time. Currently Scheduled Appointments and VNA instructions: Future Appointments and Orders Future Appointments and Orders Future Appointments Provider Department Dept Phone 01/11/2020 2:30 PM [facility] PET 1 Nuclear Medicine at [facility] Arrive at: [facility]Z INTERVENTIONAL RADIOLOGY [phone] 01/13/2020 10:00 AM Tiffany Banuelos MD Otolaryngology at [facility] [place] Arrive at: [employer] [phone] documented in this encounter Medications at Time [...] scheduled operation. Nicole Miramontes MD, PGY4, Pager [phone] 01/05/20 1:16 PM ENT Team Pager: [phone] documented in this encounter Miscellaneous Notes * Op Note - Tiffany Banuelos MD - 01/05/2020 2:16 PM EDT [facility] [place] Operative Note Patient Name: Zen Pickering : [id number] MR#: [id number] Case Date: 01/05/2020 Surgeon: Surgeon(s) and Role: [...] EST Office Visit Hematology/Oncolog y at [address] [phone] Tej Tipton MD [address] [facility] [facility] HEMATOLOGY [place] [address] Stacy Valle APRN [facility] [place] [address] 06/01/2024 10:30 AM EST Scheduled View [place] [address] 06/01/2024 11:00 AM EST Office [place] [phone] Luis E Chin MD [facility] [place] [address] 06/04/2024 8:30 AM EST Hospital Encounter [place] [address] Rayshawn Suresh MD [facility] [place] [address] 06/04/2024 8:30 AM EST - 06/04/2024 1:05 PM EST Surgery [place] [phone] Rayshawn Suresh MD [facility] [place] [address] @THORACOSCOPY, SURG; W PLEURODESIS (WRVU 10.83) Scheduled [...] 01/05/2020 5:18 PM EDT KARYOTYPING, LYMPH NODE -PEAPACK Routine 01/05/2020 3:15 PM EDT SPECIMEN TO PATHOLOGY Routine 01/05/2020 1:55 PM EDT SURGICAL PATHOLOGY REPORT Routine 2019 1:54 PM EDT Laryngoscopy, Dirct, Op Scope, Biopsy ([id number]) Yes 01/05/2020 1:18 PM EDT Tonsil cancer LARYNGOSCOPY, MICROSCOPE, WITH BIOPSY Routine 01/05/2020 11:08 AM EDT documented in this encounter Results * Immunophenotyping Flow Cytometry (01/05/2020 5:18 PM EDT) Immunophenotyping Flow See Comment [facility] Comment: When completed by the Pathologist, the Flow Cytometry Report ([id number]) will display under the Pathology Results section within eDH. Specimen of unknown material (specimen) Other / Unknown 01/05/2020 5:18 PM EDT 01/05/2020 5:18 PM EDT Narrative Resulting Agency Comment Spec In Lab Tiffany Banuelos MD HEMATOLOGY ORDERABL ES Performing Organization Address City/State/[facility] Co de Phone Number [facility] [place] [address] * Karyotyping, Lymph Node (01/05/2020 3:15 PM [...] ?0 ?2 ? Total ?20 ?0 ?2 ?Pl[place]en[place] to Stain Name: GTL=G-banding; QFQ=Q-banding; ?DAPI=DAPIlori burton; CBL=C-banding; AGNOR=Silver-sta ining; ?NON=Non-banded ?The sum of Cells Analyzed and Cells Counted equals the ?total cells examined. ??Released By ?Michi Post, Ph.D. ?Test Performed by: ?[facility] ?[address] [place] [address] ?Equipment Operator: Zan Gama M.D. Ph.D.; IA# [id number] [facility] Lymph node tissue specimen (specimen) HLX Lymph Node / Unknown 01/05/2020 3:15 PM EDT 01/06/2020 9:21 AM EDT Tiffany Banuelos MD CHEMISTRY ORDERABLE S Performing Organization Address [facility] [place] [address] * Specimen to Pathology (01/05/2020 1:55 PM EDT) AP Specimen 01/05/2020 1:55 PM EDT 01/05/2020 1:55 PM EDT Narrative [facility] - 01/05/2020 1:55 PM EDT Specimen requisition ordered. ??Separate Pathology report to follow Tiffany Banuelos MD PATHOLOGY/CYTOLOGY ORDERABLES Performing Organization Address [facility] [place] [address] * Surgical Pathology Report (01/05/2020 1:54 PM EDT) Final Diagnosis [id number] ? Location: [place]; SD38; A The signing pathologist has (i) [...] cells. HPV genotyping was performed using the [employer] MeltPro High-Risk HPV Genotyping Test that assays [...] [facility] [employer] [facility] ([facility]) Laboratory at [facility] [place]. It has not been cleared or approved by the FDA. The laboratory is regulated under CLIA as qualified to perform high-complexity testing. This test is used for clinical purposes. It should not be regarded as investigational or for research. Electronically signed by: ?Rozina CASE Cecil X Verified: ??05/30/2023 16:28 ??Pathologist Performed at: ??-[facility] [place] Dept. 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 Electronically signed by: ??Vicki Ruggiero DO Verified: ??01/11/2020 ?Pathologist Performed at: ??-[facility] [place] Dept. of Pathology, [place], [place] ADDITIONAL STUDIES Immunohistochemistry Studies: Formalin-fixed, paraffin-embedded [...] Elias MD Verified: ??01/06/2020 ?Hematopathologist Performed at: ??-[facility] [place] Dept. of Pathology, [place], [place] DISCUSSION Cell viability in the PF58-aztyru low-SSC histogram region was 83% as assessed [...] by the Clinical Flow Cytometry Laboratory at [facility]. It has not been cleared or approved [...] complexity clinical laboratory testing. . SPECIMEN PROCESSING [id number] Cells for immunophenotypic analysis were derived from [...] workup including flow cytometry. 05/30/2023 4:28 PM [facility] BILATERAL PALATINE TONSILS / Unknown 01/05/2020 1:54 PM EDT 01/05/2020 1:54 PM EDT Tiffany Banuelos MD PATHOLOGY/CYTOLOGY ORDERABLES [facility] [place] [address] [facility] [place] [address] documented in this encounter Visit Diagnoses Not [...] Given 01/05/2020 12:59 PM EDT 1,000 mg documented in this encounter Active and [...] hemostasis) documented in this encounter Care Teams [employer] Set Up Technician Relationship Specialty Start Date End Date Tiny Walters, CLINICAL LAB SPECIALIST [address] [place] [phone] PCP - General Family Medicine 12/01/19 04/07/24 documented as of this encounter
--- OUTSIDE RECORDS SUMMARY | 2024-05-31 01:28 | XMS_ITS | Encounter Summary ---
Author Organization [facility] [place] [address] Care Team Providers Care Crime Scene Photographer Name Role Phone Tiny Walters APRN Primary Care Provider +1- [phone] Reason for Referral * Diagnostic Test (Emergency) - Closed Specialty Diagnoses / Procedures Referred By Fritz t Referred To Contact Radiology Diagnoses Tonsillar tumor Procedures MRI Soft Tissue Neck wwo Contrast [facility] [place] [address] [place] [phone] [facility] [address] [place] [address] Referral ID Status Reason Start Date Expiration Date V isits Requested Visits Authorized [id number] Closed Specialty Service Requested 12/22/2019 12/28/2019 1 1 Reason for Visit * Diagnostic Test (Emergency) - Closed Specialty Diagnoses / Procedures Referred By Contkale t Referred To Contact Radiology Diagnoses Tonsillar tumor Procedures MRI Soft Tissue Neck wwo Contrast [facility] [place] [facility] [address] [place] [phone] [facility] Rad Mri [address] [place] [address] Referral ID Status Reason Start Date Expiration Date V isits Requested Visits Authorized [id number] Closed Specialty Service Requested 12/22/2019 12/28/2019 1 1 Encounter Details Date Type Department Care Team (Latest Contact Info) Description 12/28/2019 11:58 AM EDT - 12/28/2019 11:59 PM EDT Hospital Encounter Radiology MRI [place] [address] Yrn Banuelos MD [facility] [place] [address] Tonsillar tumor Discharge Disposition: Home Social History Tobacco Use [...] CAPSULE BY MOUTH EVERY DAY 12/14/2019 05/29/2020 venlafaxine (Effexor) 25 mg Tablet Take 25 mg by mouth 3 times daily. 01/24/2020 documented as of this encounter Plan of Treatment Upcoming Encounters Date Type Department Care Team (Late st Contact Info) Description 05/31/2024 11:30 AM EST Office Visit Hematology/Oncolog y at [address] [phone] Tej Tipton MD [address] [facility] [address] HEMATOLOGY [place] [address] Stacy Valle APRN [facility] [place] [address] 06/01/2024 10:30 AM EST Scheduled View Only [place] [address] 06/01/2024 11:00 AM EST Office Visit [place] [address] Luis E Chin MD [facility] [place] [address] 06/04/2024 8:30 AM EST Hospital Encounter Main [place] [phone] Rayshawn Suresh MD [facility] [place] [address] 06/04/2024 8:30 AM EST - 06/04/2024 1:05 PM EST Surgery [place] [phone] Rayshawn Suresh MD [facility] [place] [address] @THORACOSCOPY, SURG; W PLEURODESIS (WRVU 10.83) Scheduled [...] Associated Diagnosis Comments MRI NECK WITH/WO CONTRAST STAT 12/28/2019 1:26 PM EDT Tonsillar tumor documented in this encounter Results * MRI [...] contact the number below. 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 documented in this encounter Administered Medications Inactive Administered Medications - up to 3 most recent administrations Medication Order MAR Action Action Date Dose Rate Site gadoteridoL (Prohance) 279.3 mg/mL injection 13 mL 13 mL, Intravenous, ONCE PRN, 1 dose, Starting on Fri12/28/19 at 1241, Until Fri12/28/19 at 1312, Per Protocol, Radiology Contrast, Routine Given 12/28/2019 1:12 PM EDT 13 mLs documented in this encounter Care Teams Crime Scene Photographer Relationship Specialty Start Date End Date Tiny Walters APRN [address] [place] [phone] PCP - General Family Medicine 12/01/19 04/07/24 documented as of this encounter
--- OUTSIDE RECORDS SUMMARY | 2024-05-31 01:28 | XMS_ITS | Encounter Summary ---
Author Organization [facility] [place] [address] Care Team Providers Care Horticulture/Floriculture Teacher Name Role Phone Romeo Tiny Lindsay APRN Primary Care Provider +1- [phone] Encounter Details Date Type Department Care Team (Late st Contact Info) Description 12/22/2019 Orders [place] [phone] Jigar Lemus MD [facility] [place] [place] [address] Social History Tobacco Use Types Packs/Day Years [...] EST Office Visit Hematology/Oncolog y at [address] [phone] Tej Tipton MD [address] [facility] HEMATOLOGY & [place] [address] Stacy Valle APRN [facility] [place] [address] 06/01/2024 10:30 AM EST Scheduled View Only [place] [phone] 06/01/2024 11:00 AM EST Office Visit [place] [address] Luis E Chin MD [facility] [place] [address] 06/04/2024 8:30 AM EST Hospital Encounter [place] [phone] Rayshawn Suresh MD [facility] [place] [address] 06/04/2024 8:30 AM EST - 06/04/2024 1:05 PM EST Surgery [place] [phone] Rayshawn Suresh MD [facility] [place] [address] @THORACOSCOPY, SURG; W PLEURODESIS (WRVU 10.83) Scheduled [...] on filedocumented in this encounter Care Teams Horticulture/Floriculture Teacher Relationship Specialty Start Date End Date Tiny Walters APRN [address] [place] [phone] PCP - General Family Medicine 12/01/19 04/07/24 documented as of this encounter
--- OUTSIDE RECORDS SUMMARY | 2024-05-31 01:28 | XMS_ITS | Encounter Summary ---
Author Organization [facility] [place] [address] Care Team Providers Care Coffin Maker Name Role Phone Tiny Walters APRN Primary Care Provider [phone] Reason for Referral * Diagnostic Test (Routine) - Closed Specialty Diagnoses / Procedures Referred By Contac t Referred To Contact Radiology Diagnoses Tonsil cancer Procedures IR G-Tube Placement Gume Christy MD [facility] [place] [address] [place] [address] Referral ID Status Reason Start Date Expiration Date V isits Requested Visits Authorized [id number] Closed Specialty Service Requested 02/11/2020 04/27/2020 1 1 * Diagnostic Test (Routine) - Closed Specialty Diagnoses / Procedures Referred By Contac t Referred To Contact Radiology Diagnoses Tonsil cancer Procedures IR Mediport Placement Gume Christy MD [facility] [place] [address] [place] [address] Referral ID Status Reason Start Date Expiration Date V isits Requested Visits Authorized [id number] Closed Specialty Service Requested 02/11/2020 04/27/2020 1 1 * Consultation (Routine) - Specialty Diagnoses / Procedures Referred By Fritz lanier Referred To Contact Hematology and Oncology Diagnoses Tonsil cancer Gume Christy MD [facility] [place] [address] [facility] Hem Onc Office [address] [place] [phone] Referral ID Status Reason Start Date Expiration Date V isits Requested Visits Authorized [id number] Continuity of Care 01/24/2020 01/23/2021 12 12 * Speech Therapy (Routine) - Specialty Diagnoses / Procedures Referred By Fritz lanier Referred To Contact Diagnoses Tonsil cancer Gume Christy MD [facility] [place] [address] Referral ID Status Reason Start Date Expiration Date V isits Requested Visits Authorized [id number] Evaluate and Treat 01/24/2020 07/22/2020 12 12 Reason for Visit * Consultation (Routine) - Specialty Diagnoses / Procedures Referred By Fritz lanier Referred To Contact Hematology and Oncology Diagnoses Tonsil cancer Nicole Miramontes MD [facility] [place] [address] [facility] Hem Onc Infusion [address] [place] [phone] Referral ID Status Reason Start Date Expiration Date V isits Requested Visits Authorized [id number] Consult, Test & Treat 01/16/2020 01/15/2021 1 1 Encounter Details Date Type Department Care Team (Late st Contact Info) Description 01/24/2020 1:45 PM EDT Office Visit Hematology/Oncology at [address] [phone] Gume Christy MD [address] [place] [phone] Tonsil cancer Social History Tobacco Use Types [...] Sign Reading Time Taken Comments Blood Pressure 146/80 01/24/2020 1:45 PM EDT Pulse 57 01/24/2020 1:45 PM EDT Temperature 36.8 ??C (98.2 ??F) 01/24/2020 1:45 PM ED T Respiratory Rate 16 01/24/2020 1:45 PM EDT Oxygen Saturation 100% 01/24/2020 1:45 PM EDT Inhaled Oxygen Concentration - - Weight 82.6 kg (182 lb) 01/24/2020 1:45 PM EDT Height 171 cm (5' 7.32) 01/24/2020 1:45 PM EDT Body Mass Index 28.23 01/24/2020 1:45 PM EDT documented in this encounter Progress Notes * Taniya Barajas RN - 01/24/2020 1:45 PM EDT MEDICAL ONCOLOGY INITIAL NURSING ASSESSMENT ADVANCE DIRECTIVES: In EDH [ ] Has documents [ ] Will bring in [ ] nothing at this time IF NO: Advance Directive pamphlet provided : Referral to Care Management : PRESENTING SYSTEMS and PATHOLOGY: REVIEW OF SYSTEMS: started with sore throat Prior Radiotherapy: no[ x ] Yes[ ]Site Date Facility Prior Chemotherapy: no[ x ] Yes[ ] Drug: Oncologist- LastTreatment: Balance difficulty: [ x ]no [ ]yes At risk for fall: [x ] no [ ] yes If yes, actions implemented to prevent fall. Patient/family instructed to avoid independent ambulation. Use wheelchair and ask for assistance of staff while in the clinic. ADL [ x ] no limits [ ] needs dressing assistance [ ] needs meal assistance Assistive device:[ x ]none [ ]cane [ ]walker [ ]wheelchair [ ]other: explain PAIN ASSESSMENT: [0 ] out of 10 Location: Description: [ ] Dull [ ] Sharp [ ] Burning [ ] Throbbing [ ] Radiating [ ] Continuous [ ]Intermittent Aggravating Factors: [ ] Movement [ ] Position [ ]Immobility [ ]Other Alleviating Factors: [ ]Medication [ ] Positioning [ ] Other Current Pain Management Plan: [ ]Satisfied [ ] Not satisfied SOCIAL ASSESSMENT: See EDH social assessment information entered. 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 TEACHING: __ NCI ???Chemotherapy and You?? and folder given __ Specific chemotherapy literature provided and reviewed with patient * Gume Christy MD - 01/24/2020 1:45 PM EDT Hematology/Oncology Clinic [facility] Patient Active Problem List Diagnosis ??? Raynaud's syndrome ??? 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 Pickering ([place]-anita-a) is referred by Estevan Banuelos and Kulwinder for chemotherapy as part of curative-intent nonsurgical treatment for tonsil cancer. The patient is a 39-year-old who has enjoyed lifelong good health. He does relate a history of multiple tonsil infections and enlarged tonsils as a child, and into his adulthood has had trouble with loud snoring and some sleep apnea symptoms. He is a lifetime non-smoker and takes minimal ethanol. In approximately June of this year he noted a globus sensation. Over the ensuing months his throat symptoms escalated to some odynophagia, by July he noticed headache and then central otalgia, and eventually progressive trismus. He sought medical attention in the spring and there was clinical concern for tonsillitis, but antibiotics did not help the symptoms. He was then referred to Dr. Eros Fletcher who also thought this was most consistent with tonsillitis and prescribed antibiotics, the secondcourse of which also did not help. Therapeutic tonsillectomy was considered. He was referred to who saw him on 12/09/2019 by a virtual visit, and then an in person visit on 12/27. He was also concerned about tonsillitis, but after obtaining and reviewing an MRI of the throat on 12/27 was more concerned with the possibility of malignancy. He was taken to the operating room for exam under anesthesia on 01/04 where a large tonsil tumor was seen, extending to the posterior right lateral tongue as well as extending to the soft palate but not invading it. 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 His case was reviewed at our recent head and neck tumor conference. This confirmed on radiologic review a large and infiltrative right tonsil tumor; there is also concern about the left tonsil based on its FDG avidity on the PET scan. The consensus recommendation was for definitive chemoradiation rather than surgery based on the deeply infiltrative nature of this tumor. A left tonsil biopsy versus tonsillectomy is planned for later this week. His current symptoms include trismus, causing him to cut his food into small bites, and mild to moderate discomfort upon swallowing. He has not needed to use pain medications. He also has nearly constant otalgia, made worse with chewing more than with swallowing. He senses this centrally in the earcanal and eardrum. In the last week or so he is also developed fluctuating right hemifacial pain. He has met with Dr. Rae and radiation planning will take place once we get the left tonsil biopsy. He has a dental appointment for preradiation clearance later this week. Past medical history: Nothing of great significance. He has a long history of cold-induced Raynaud's syndrome, for which he occasionally uses amlodipine. Review of systems: Noncontributory for all organ systems except as noted in history above. Specifically he has no trouble with tinnitus, hearing loss, or peripheral neuropathy. Family history: Noncontributory for this illness. Social history: He is , and is very well-informed and supportive accompanied him to today's visit. 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 His is a dental automotive glass technician but right now is homeschooling their 3 children, 9-year-old twins and a 3-year-old. The 9-year-old daughter has some developmental challenges and the couple is worried about how well she will cope with his cancer treatment. They live in [facility]. The patient and his recently built in addition on their house; his hobbies have included running and participation in triathlons and bicycle races. Physical exam: Healthy-appearing, lean and fit male Oral exam limited by trismus, inter-incisor distance approximately 1.5 cm. Teeth in excellent repair. Both tonsils have a regular chewing gum surface texture, but the right tonsil is much enlarged with an endophytic swelling visible. This does extend up to but does not appear to invade the soft palate. I cannot see the lower extent of the tumor but per reports of others extends to the lower tonsillar pillar. Tongue mobility is limited, with rightward deviation. This does not cause pain. Neck: No palpable adenopathy on the right, questionable left zone 2 node, 1 cm Tympanic membranes: Clear bilaterally Lungs clear to auscultation and percussion Cardiac exam normal Abdomen benign, no hepatosplenomegaly or masses Extremities: No clubbing cyanosis or edema Neurologic: Normal motor and sensory function throughout. Reflexes 1+. 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 Radiographs: I personally reviewed all recent images. The MRI from 12/27 illustrates the right tonsillar tumor extending into the parapharyngeal tissue and abutting but not encasing the vessels. There are small bilateral mid-neck nodes visible. Recent PET/CT is informative in the large right tonsil tumor which extends to the posterior lateral tongue or floor of mouth, and also confirms several small bilateral lymph nodes. The left tonsil is prominent both by size and by FDG avidity. There is no sign of metastatic disease. 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 I concur that his case is not optimal for conservative surgery, and therefore we should plan on a chemoradiation approach with curative intent. Plan: We had a long talk today about the addition of chemotherapy, and he is already quite well-informed about radiation. I propose using weekly cisplatin at a dose of 40 mg/m?? has used in the recent [place] phase 3 study, which confirmed noninferiority when compared to the older standard 100 mg/m?? cisplatin given every 3 weeks. The toxicity of weekly treatment was shown to be significantly less. I recommended that we put in a prophylactic G-tube, as well as a Mediport for ease of chemotherapy administration. He is agreeable to both and I will make these arrangements for [facility]. We had a long talk about the potential side effects of this regimen, both the radiation potentiating side effects of chemotherapy and the chemotherapy specific side effects. These can include fatigue, nausea and vomiting, hair thinning or hair loss, risk of myelosuppression and increased risk of infection, anemia and worsening fatigue therefrom, peripheral neuropathy or hearing toxicity. In very,very rare instances second malignancies can be triggered by radiation or chemotherapy or the combination. We talked about the logistics of coming in once a week for labs, and medical oncology checkup, chemotherapy with pre-and post hydration and antiemetics, as well as coming in late in the week for an additional dose of antiemetics and additional intravenous hydration. I will request consultations by our cancer center dietitian, and referral to a local speech therapist for prophylactic swallowing exercises and therapy for trismus. Many questions were answered to the best of my ability. He was given some written information aboutcisplatin. I am grateful for the opportunity to consult with this patient. Followup: as we get going with treatment. Gume Christy MD, FACP carpet sewing machine operator Hematology/Oncology Section [facility] [address] Voice recognition software used for this note; please excuse applied researcher errors. I personally reviewed past medical, surgical, family medical histories, reviewed current medications, vital signs, labs, and performed full review of systems. These are documented below the narrativefor clarity and succinctness. Outpatient Medications Marked as Taking for the 01/24/20 encounter (Office Visit) with Melissa Christy MD Medication Sig Dispense Refill ??? diphenhydrAMINE (Benadryl) 25 mg Capsule Take [...] Review of systems is negative for other COILER OPERATOR, bone, pulmonary, cardiac, GI, , extremity, neurologic, endocrine, skin, constitutional, emotional, or functional problems. Vitals Office Visit from 01/24/2020 in Hematology/Oncology at [facility] Weight 82.6 kg (182 lb) Height 171 cm (5' 7.32) BSA (Calculated - sq m) 1.98 sq meters BMI (Calculated) 28.23 Temp 36.8 ??C (98.2 ??F) Temp src Temporal Heart Rate 57 Heart Rate Source Right, NIBP Resp 16 BP 146/80 BP Location Right arm Patient Position Sitting SpO2 100 % Karnofsky Score 100 Body surface area is 1.98 meters squared. Wt Readings from Last 3 Encounters: 01/24/20 82.6 kg (182 lb) 01/19/20 83.1 kg (183 lb 3.2 oz) 01/13/20 83.6 kg (184 lb 6.4 oz) No results found for this or any previous visit (from the past 72 hour(s)). ++++++++++++++++++++++++++++++++++++++++++++++++++++ documented in this encounter Plan of Treatment Upcoming Encounters Date Type Department Care Team (Late st Contact Info) Description 05/31/2024 11:30 AM EST Office Visit Hematology/Oncolog y at [address] [phone] Tej Tipton MD [address] [facility] HEMATOLOGY & ONCOLOGY [place], [place] [id number] Stacy Valle APRN [facility] [place] [address] 06/01/2024 10:30 AM EST Scheduled View [place] [address] 06/01/2024 11:00 AM EST Office [place] [address] Luis E Chin MD [facility] [place] [address] 06/04/2024 8:30 AM EST Hospital Encounter [place] [address] Rayshawn Suresh MD [facility] [place] [address] 06/04/2024 8:30 AM EST - 06/04/2024 1:05 PM EST Surgery [place] [phone] Rayshawn Suresh MD [facility] [place] [address] @THORACOSCOPY, SURG; W PLEURODESIS (WRVU 10.83) Scheduled [...] Outpatient Referral Routine Tonsil cancer Ordered: 01/24/2020 Referral to Nutrition Services Outpatient Referral Routine Tonsil cancer Ordered: 01/24/2020 documented as of this encounter Results * IR G-Tube Placement (02/11/2020 3:17 PM EDT) Anatomical Region Laterality Modality Chest X-Ray Angiograph y Narrative 02/14/2020 4:23 PM EDT IR PROCEDURE NOTE ?? Procedure: Right IJ mediport placement Gastrostomy tube placement ?? Indication for Procedure: Per history by Zen Rizo??is a 39 y.o.??male??with newly diagnosed tonsillar SCCa. Pt is starting chemoradiation and requires terminal superintendent durable venous access for chemotherapy as well [...] ??guidewire, the tract was dilated to 20 Gambian and a 20 Gambian peel-away sheath was placed. ??A 16 Gambian balloon retained gastrostomy tube was placed via [...] Pt is starting chemoradiation and requires terminal superintendent durable venous access for chemotherapy as well [...] ??guidewire, the tract was dilated to 20 Gambian and a 20 Gambian peel-away sheath was placed. ??A 16 Gambian balloon retained gastrostomy tube was placed via [...] tonsil documented in this encounter Care Teams Coffin Maker Relationship Specialty Start Date End Date Tiny Walters APRN [address] [place] [phone] PCP - General Family Medicine 12/01/19 04/07/24 documented as of this encounter
--- OUTSIDE RECORDS SUMMARY | 2024-05-31 01:28 | XMS_ITS | Encounter Summary ---
Author Organization [facility] [address] Care Team Providers Care Supervisor Malted Milk Name Role Phone Tiny Walters APRN Primary Care Provider +1- [phone] Reason for Referral * Diagnostic Test (Routine) - Closed Specialty Diagnoses / Procedures Referred By Contac t Referred To Contact Radiology Diagnoses Tonsil cancer Procedures NM PET CT Standard Plus Head and Neck Yrn Banuelos MD [facility] [place] [address] [place] [address] Referral ID Status Reason Start Date Expiration Date V isits Requested Visits Authorized [id number] Closed Specialty Service Requested 01/05/2020 02/10/2020 1 1 Reason for Visit * Diagnostic Test (Routine) - Closed Specialty Diagnoses / Procedures Referred By Contac t Referred To Contact Radiology Diagnoses Tonsil cancer Procedures NM PET CT Standard Plus Head and Neck Yrn Banuelos MD [facility] [place] [address] [place] [address] Referral ID Status Reason Start Date Expiration Date V isits Requested Visits Authorized [id number] Closed Specialty Service Requested 01/05/2020 02/10/2020 1 1 Encounter Details Date Type Department Care Team (Latest Contact Info) Description 01/11/2020 12:59 PM EDT - 01/11/2020 2:29 PM EDT Hospital Encounter [place] [phone] Yrn Banuelos MD [facility] [place] [address] Tonsil cancer Discharge Disposition: Home Social History [...] AM EST Office Visit Hematology/Oncolog y at [address] [phone] Tej Tipton MD [address] [facility] HEMATOLOGY & [place] [address] Stacy Valle APRN [facility] [place] [address] 06/01/2024 10:30 AM EST Scheduled View [place] [address] 06/01/2024 11:00 AM EST Office Visit [place] [address] Luis E Chin MD [facility] [place] [address] 06/04/2024 8:30 AM EST Hospital Encounter [place] [address] Rayshawn Suresh MD [facility] [place] [address] 06/04/2024 8:30 AM EST - 06/04/2024 1:05 PM EST Surgery [place] [phone] Rayshawn Suresh MD [facility] [place] [address] @THORACOSCOPY, SURG; W PLEURODESIS (WRVU 10.83) Scheduled [...] Routine 01/11/2020 3:05 PM EDT Tonsil cancer POCT GLUCOSE Routine 01/11/2020 1:15 PM EDT documented in this encounter Results * NM PET CT Standard Plus Head and Neck (01/11/2020 3:05 PM EDT) Anatomical Region Laterality Modality Positron Emissio n Tomography (PET) Impressions 01/12/2020 11:18 AM EDT 1. ??Large FDG avid mass centered in the right upper pharyngeal and palatine tonsil region extending into the posterolateral right tongue muscle, consistent site of biopsy-proven right tonsillar malignancy. 2. ??FDG avid soft tissue fullness in the left upper pharyngeal tonsil region, highly suspicious for left tonsillar malignancy. 3. ??Small FDG avid lymph nodes in the right level 2 and 3 and left level 2 regions, highly suspicious for ruth metastases. 4. ??No distant sites of metastasis. I have personally reviewed the image(s) and the resident's interpretation and agree with the findings, Michael Dietz MD at 01/12/2020 11:18 AM Thank you for letting us participate in the care of this patient. For questions regarding this report, please contact the number below. ? Electronically signed by: Michael Dietz MD, [facility] ([phone]), at 01/12/2020 11:18 AM Narrative 01/12/2020 11:18 AM EDT EXAMINATION: NM PET CT STANDARD PLUS HEAD AND NECK CLINICAL HISTORY: Suspected tonsil cancer. TECHNIQUE: Following IV injection of 08-jiamqt-4-deoxyglucose (FDG) a standard uptake of approximately 60 minutes, a noncontrast CT scan followed by a PET scan were acquired from the top of head to mid thighs. The noncontrast CT was used for anatomic localization and photon attenuation correction of the PET scan. Blood glucose level: 86 (mg/dL) FDG dose: 12.12 mCi COMPARISON: CT neck 11/25/2019 MRI neck 12/28/2019 FINDINGS: HEAD/NECK: Large FDG avid mass centered in the [...] in the left thyroid, likely a cyst. CHEST: Normal activity in all soft tissue regions. No significant adenopathy. CT visualized sub-5 mm pulmonary nodule in the posterior peripheral left lower lobe (axial image 147). ABDOMEN/PELVIS: Normal activity in all soft tissue regions. No significant adenopathy. SKELETON/EXTREMITIES: Normal activity in all regions of the axial and visualized appendicular skeleton. Procedure Note Michael Dietz MD - 01/12/2020 EXAMINATION: NM PET CT STANDARD PLUS HEAD AND NECK CLINICAL HISTORY: Suspected tonsil cancer. TECHNIQUE: Following IV injection of 67-iupfgg-0-deoxyglucose (FDG) astandard uptake of approximately 60 minutes, a noncontrast CT scan followed by aPET scan were acquired from the top of head to mid thighs. The noncontrast CT wasused for anatomic localization and photon attenuation correction of the PETscan. Blood glucose level: 86 (mg/dL) FDG dose: 12.12 mCi COMPARISON: CT neck 11/25/2019 MRI neck 12/28/2019 FINDINGS: HEAD/NECK: Large FDG avid mass centered in the right upper pharyngeal and palatinetonsil region extending into the posterolateral right tongue musculature (axialimages 61 through 74). FDG avid soft tissue fullness in the left upper pharyngeal palate tonsilregion (centered on axial image 67). Small FDG avid lymph nodes in the right level 2 and 3 region (axial [id number] through 83). Several small FDG avid lymph nodes in the left level 2 region (axialimages 69 through 75). Normal activity in all other soft tissue regions of the neck andvisualized lower head. Non-FDG avid 2.7 cm hypoattenuating lesion in the leftthyroid, likely a cyst. CHEST: Normal activity in all soft tissue regions. No significant adenopathy.CT visualized sub-5 mm pulmonary nodule in the posterior peripheral leftlower lobe (axial image 147). ABDOMEN/PELVIS: Normal activity in all soft tissue regions. No significant adenopathy. SKELETON/EXTREMITIES: Normal activity in all regions of the axial and visualized appendicular skeleton. IMPRESSION 1. Large FDG avid mass centered in the right upper pharyngeal andpalatine tonsil region extending into the posterolateral right tongue muscle,consistent site of biopsy-proven right tonsillar malignancy. 2. FDG avid soft tissue fullness in the left upper pharyngeal tonsilregion, highly suspicious for left tonsillar malignancy. 3. Small FDG avid lymph nodes in the right level 2 and 3 and left level2 regions, highly suspicious for ruth metastases. 4. No distant sites of metastasis. I have personally reviewed the image(s) and the resident's interpretationand agree with the findings, Michael Dietz MD at 01/12/2020 11:18 AM Thank you for letting us participate in the care of this patient. Forquestions regarding this report, please contact the number below. Electronically signed by: Michael Dietz MD, [facility]([phone]), at 01/12/2020 11:18 AM Yrn Banuelos MD IMG PET ORDERABLES * POCT Glucose (01/11/2020 1:15 PM EDT) Glucose, POC 86 65 - 199 mg/dL [facility] Comment: Supplemental ranges: <140 mg/dL before meals <180 mg/dL all other times of the day Blood specimen (specimen) 01/11/2020 1:15 PM EDT 01/11/2020 1:15 PM EDT Yrn Banuelos MD POINT OF CARE TEST ORDERABLES [facility] [place] [address] documented in this encounter Visit Diagnoses Diagnosis Tonsil cancer Malignant neoplasm of tonsil documented in this encounter Care Teams Supervisor Malted Milk Relationship Specialty Start Date End Date Tiny Walters APRN [address] [place] [phone] PCP - General Family Medicine 12/01/19 04/07/24 documented as of this encounter
--- OUTSIDE RECORDS SUMMARY | 2024-05-31 01:28 | XMS_ITS | Encounter Summary ---
Author Organization [facility] [place] [address] Care Team Providers Care Sports Manager Name Role Phone Tiny Walters APRN Primary Care Provider +1- [phone] Encounter Details Date Type Department Care Team (Late Contact Info) Description 01/17/2020 Telephone [place] [phone] Deepali Norton Social History Tobacco Use Types Packs/Day Years Used Date Smoking Tobacco: Never Smokeless Tobacco: Never Sex and Gender Information Value Date Recorded Sex Assigned at Not on file Gender Identity Not on file Sexual Orientation Not on file documented as of this encounter Miscellaneous Notes * Telephone Encounter - Deepali Norton - 01/17/2020 4:09 PM EDT Fancarly, Patient is scheduled to have surgery on 01/28/2020 and the packet has been mailed to the verified address on file. Follow up appointment is as follows: No f/u noted COVID Testing: YES Covid 19 Team Thank you!! documented in this encounter Plan of Treatment Upcoming Encounters Date Type Department Care Team (Late st Contact Info) Description 05/31/2024 11:30 AM EST Office Visit Hematology/Oncolog y at [address] [phone] Tej Tipton MD [address] [facility] HEMATOLOGY & [place] [address] Stacy Valle APRN [facility] [place] [address] 06/01/2024 10:30 AM EST Scheduled View Only Radiation Oncology at [place] [address] 06/01/2024 11:00 AM EST Office Visit Radiation Oncology at [place] [phone] Luis E Chin MD [facility] [place] [address] 06/04/2024 8:30 AM EST Hospital Encounter Main Operating Room [place] [phone] Rayshawn Suresh MD [facility] [place] [address] 06/04/2024 8:30 AM EST - 06/04/2024 1:05 PM EST Surgery Main Operating Room [place] [phone] Rayshawn Suresh MD [facility] [place] [address] @THORACOSCOPY, SURG; W PLEURODESIS (WRVU 10.83) Scheduled [...] on filedocumented in this encounter Care Teams Sports Manager Relationship Specialty Start Date End Date Tiny Walters APRN [address] [place] [phone] PCP - General Family Medicine 12/01/19 04/07/24 documented as of this encounter
--- OUTSIDE RECORDS SUMMARY | 2024-05-31 01:28 | XMS_ITS | Encounter Summary ---
Author Organization [facility] [place] [address] Care Team Providers Care Educational Therapy Teacher Name Role Phone Tiny Walters APRN Primary Care Provider +1- [phone] Encounter Details Date Type Department Care Team (Late st Contact Info) Description 12/16/2019 Orders [place] [phone] Jamari Bernardo, RN Tonsillar tumor (Primary Dx) Social History [...] EST Office Visit Hematology/Oncolog y at [address] [phone] Tej Tipton MD [address] [facility] HEMATOLOGY & [place] [address] Stacy Valle APRN [facility] [place] [address] 06/01/2024 10:30 AM EST Scheduled View [place] [address] 06/01/2024 11:00 AM EST Office [place] [address] Luis E Chin MD [facility] [place] [address] 06/04/2024 8:30 AM EST Hospital Encounter [place] [phone] Rayshawn Suresh MD [facility] [place] [address] 06/04/2024 8:30 AM EST - 06/04/2024 1:05 PM EST Surgery [place] [phone] Rayshawn Suresh MD [facility] [place] [address] @THORACOSCOPY, SURG; W PLEURODESIS (WRVU 10.83) Scheduled [...] system documented in this encounter Care Teams Educational Therapy Teacher Relationship Specialty Start Date End Date Tiny Walters APRN [address] [place] [phone] PCP - General Family Medicine 12/01/19 04/07/24 documented as of this encounter
--- OUTSIDE RECORDS SUMMARY | 2024-05-31 01:28 | XMS_ITS | Encounter Summary ---
Author Organization [facility] [place] [place] [address] Care Team Providers Care Progressive Die Maker Name Role Phone Unavailable Primary Care Provider Unavailabl e Encounter Details Date Type Department Care Team (Late st Contact Info) Description 11/25/2019 Ancillary Procedure Radiology Library at [facility] [place] [address] Tiny Walters APRN [address] [place] [phone] Social History Tobacco Use Types Packs/Day [...] EST Office Visit Hematology/Oncolog y at [address] [phone] Tej Tipton MD [facility] HEMATOLOGY & [place] [address] Stacy Valle APRN [facility] [place] [address] 06/01/2024 10:30 AM EST Scheduled View [place] [address] 06/01/2024 11:00 AM EST Office [place] [address] Luis E Chin MD [facility] [place] [address] 06/04/2024 8:30 AM EST Hospital Encounter [place] [phone] Rayshawn Suresh MD [facility] [place] [address] 06/04/2024 8:30 AM EST - 06/04/2024 1:05 PM EST Surgery [place] [phone] Rayshawn Suresh MD [facility] [place] [address] @THORACOSCOPY, SURG; W PLEURODESIS (WRVU 10.83) Scheduled [...] LIBRARY - STORAGE ONLY CT NECK Routine 11/25/2019 12:00 AM EDT documented in this encounter Results * Film Library- Storage Only CT Neck (11/25/2019 12:00 AM EDT) Narrative [facility] - 12/01/2019 12:00 PM EDT This exam is auto-finalizing. It's purpose is for storage only. Tiny S Walters [employer] BU[employer] IMG FILM LIBRARY O RDERABLES [place], [place] documented in this encounter Visit Diagnoses Not on filedocumented in this encounter
--- OUTSIDE RECORDS SUMMARY | 2024-05-31 01:28 | XMS_ITS | Encounter Summary ---
Author Organization [facility] [place] [address] Care Team Providers Care Child Development Teacher Name Role Phone Romeo Tiny Lindsay APRN Primary Care Provider +1- [phone] Encounter Details Date Type Department Care Team (Late st Contact Info) Description 01/13/2020 Notes Only Otolaryngology at [facility] [place] [phone] Rachele France RN Social History Tobacco Use Types Packs/Day Years Used Date Smoking Tobacco: Never Smokeless Tobacco: Never Sex and Gender Information Value Date Recorded Sex Assigned at Not on file Gender Identity Not on file Sexual Orientation Not on file documented as of this encounter Progress Notes * Rachele France RN - 01/13/2020 12:30 PM EDT [facility] Oncology Nurse Navigation Patient Intake & Care Plan Met with 39 yo Zen Pickering, who has a diagnosis of p16+ SCCa right tonsil, to assess for nurse navigation services. Present during this interview is spouse, Janett. Zen's case was reviewed at Head and Neck Tumor Board today: it was recommended that he consider a biopsy/excision of his left tonsil to rule out cancer; also, definitive chemoRT was recommended over surgery with adjuvant chemoRT. Patient complains of right otalgia and mild trismus. He reports numbness and tingling in his tongue. Able to maintain nutrition orally. States that his pain is a constant 5 or 6 out of 10, but that Tylenol makes pain tolerable. Patient exercises regularly; rides pedal bikes long distances and participates in race events. Does not see dentist regularly, but can easily get an appointment. Dentitionappears to be in good condition. Zen and spouse question work-up for sleep apnea; Dr. Banuelos recommends waiting until after chemoradiation treatment to consider if a sleep study is still neededto rule out sleep apnea. Janett asks Dr. Banuelos about how HPV is contracted, and could she have given this to Zen. A long discussion is had regarding HPV and its connection to Head and Neck Cancers. Also discuss how HPV-mediated disease is typically more responsive to chemoradiation. 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 He prefers to work through treatment as much as he can tolerate. According to Zen, he has the ability to work remotely and his shift supervisor is supportive. Janett is a dental carpenter assistant installer, but does not currently work. They have two twin 9 year olds (girl and boy) and a two year old. Janett is staying at home with the children and engaging in remote learning with her 9 year olds. Per Janett, the female twin has anxiety and some mild cognitive delay, so they are worried about any appearance changes (i.e. hair loss) Zen will experience. Discuss potetial appearance change to anticipate, namely g-tube, mediport, neck redness and mild swelling, and visible fatigue. Discuss supportive referrals to Social Work, PsychoOnc and Child Life; couple will consider and let me know. No express financial concerns at this time. Feels insurance is adequate. Transportation to [facility] is difficult only related to distance needed to travel. Reviewed general timeline of definitive treatment, emphasizing the importance of early dental extractions, if needed. Also discussed long-term follow-up schedule. Patient would prefer treatment in [facility]. PLAN: ??? Facilitate scheduling of tonsillectomy/biopsy of left tonsil ??? Facilitate referrals to RadOnc and MedOnc ??? Defer Nutrition and Speech referrals to RadOnc provider ??? Continue to check in with patient and spouse regarding need for Social Work, PsychoOnc, or Child Life. Nurse Navigator Assessment Potential or realized barriers to treatment include: Insurance / Financial Concerns: No Insurance/Financial or Practical Concerns at This Time Physical Health Concerns: Education-Disease Process, Treatment, Medication Social / Communication / Cultural Support: Family Care and Responsibilities, Communication with Children or Family Supportive Services: Other(Patient considering Child Life and PsychoOnc) Appointments Scheduled / Pending with Dates If Known: Medical Oncology, Radiation Oncology Treatment Compliance Issues: No Treatment Compliance Issues Patient will be followed closely by Oncology Nurse Navigation at this time. Head and Neck Oncology Nurse Navigator is Rachele France RN, BSN (pager [phone]). documented in this encounter Plan of Treatment Upcoming Encounters Date Type Department Care Team (Late st Contact Info) Description 05/31/2024 11:30 AM EST Office Visit Hematology/Oncolog y at [address] [phone] Tej Tipton MD [address] [facility] HEMATOLOGY & [place] [address] Stacy Valle APRN [facility] [place] [address] 06/01/2024 10:30 AM EST Scheduled View [place] [address] 06/01/2024 11:00 AM EST Office [place] [phone] Luis E Chin MD [facility] [place] [address] 06/04/2024 8:30 AM EST Hospital Encounter [place] [address] Rayshawn Suresh MD [facility] [place] [address] 06/04/2024 8:30 AM EST - 06/04/2024 1:05 PM EST Surgery [place] [phone] Rayshawn Suresh MD [facility] [place] [address] @THORACOSCOPY, SURG; W PLEURODESIS (WRVU 10.83) Scheduled [...] on filedocumented in this encounter Care Teams Child Development Teacher Relationship Specialty Start Date End Date Tiny Walters APRN [address] [place] [phone] PCP - General Family Medicine 12/01/19 04/07/24 documented as of this encounter
--- OUTSIDE RECORDS SUMMARY | 2024-05-31 01:28 | XMS_ITS | Encounter Summary ---
Author Organization [facility] Address [facility] [place] [address] Care Team Providers Care Band Salvager Name Role Phone Tiny Walters APRN Primary Care Provider +1- [phone] Reason for Referral * Consultation (Routine) - Specialty Diagnoses / Procedures Referred By Fritz t Referred To Contact Radiation Oncology Diagnoses Tonsil cancer Nicole Matthew MD [facility] [place] [address] [facility] Rad Onc Treatment [address] [place] [phone] Referral ID Status Reason Start Date Expiration Date V isits Requested Visits Authorized [id number] Consult, Test & Treat 01/16/2020 01/15/2021 1 1 * Consultation (Routine) - Specialty Diagnoses / Procedures Referred By Contkale t Referred To Contact Hematology and Oncology Diagnoses Tonsil cancer Nicole Matthew MD [facility] [place] [address] [facility] Hem Onc Infusion [address] [place] [phone] Referral ID Status Reason Start Date Expiration Date V isits Requested Visits Authorized [id number] Consult, Test & Treat 01/16/2020 01/15/2021 1 1 Encounter Details Date Type Department Care Team (Latest Contact Info) Description 01/16/2020 Multidisciplinary Ca [place] [address] Nicole Matthew MD [facility] [place] [address] Tonsil cancer Social History Tobacco Use Types Packs/Day Years Used Date Smoking Tobacco: Never Smokeless Tobacco: Never Sex and Gender Information Value Date Recorded Sex Assigned at Not on file Gender Identity Not on file Sexual Orientation Not on file documented as of this encounter Progress Notes * Nicole Matthew MD - 01/16/2020 11:54 AM EDT Images from the original note were not included. 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 Operative laryngoscopy findings were pertinent for tumor noted in right tonsil involving the entiretonsillar fossa, abutting the superior right soft palate but not involving the soft palate, extending to the inferior tonsillar pole and into the right posterior floor of mouth and abutting the rightventral tongue. Pathology Right tonsil, biopsy - - P16 positive (HPV-driven) squamous cell carcinoma. Imaging MRI (Initial) IMPRESSION 1. A 4.0 cm mass centered [...] No evidence of regional distant metastatic disease. Tumor Board Recs We discussed that this is a large tonsil cancer which is likely involving the neurovascular bundle as well as concern for FDG avidity in the left tonsil. Patient would not likely be a uni-modality surgical candidate and would require adjuvant chemo/RT. Therefore, our plan will be to recommend definitive chemo-radiation therapy and consideration of biopsy/tonsillectomy of the lefttonsil 1. Definitive Chemo-Radiation - Referral to Rad/Onc & Heme/Onc 2. OR for left tonsillectomy vs. tonsil biopsy * (Based on past studies and the information available at the time of presentation) Specific treatment to be undertaken must ultimaly be determined on an individual basis by the patient and those invoved in her/his treatment) documented in this encounter Miscellaneous Notes * Addendum Note - Nicole Matthew MD - 01/16/2020 11:54 AM EDTAddended by: NICOLE MATTHEW on: 01/16/2020 12:05 PM Modules accepted: Orders documented in this encounter Plan of Treatment Upcoming Encounters Date Type Department Care Team (Late st Contact Info) Description 05/31/2024 11:30 AM EST Office Visit Hematology/Oncolog y at [address] [address] Tej Tipton MD [address] [facility] [address] HEMATOLOGY & [place] [address] Stacy Valle APRN [facility] [place] [address] 06/01/2024 10:30 AM EST Scheduled View [place] [address] 06/01/2024 11:00 AM EST Office Visit [place] [phone] Luis E Chin MD [facility] [place] [address] 06/04/2024 8:30 AM EST Hospital Encounter [place] [phone] Rayshawn Suresh MD [facility] [place] [address] 06/04/2024 8:30 AM EST - 06/04/2024 1:05 PM EST [place] [phone] Rayshawn Suresh MD [facility] [place] [address] @THORACOSCOPY, SURG; W PLEURODESIS (WRVU 10.83) Scheduled [...] Associated Diagnoses Orde r Schedule Referral to Head and Neck Oncology Outpatient Referral Routine Tonsil cancer Ordered: 01/16/2020 Referral to Radiation Oncology Outpatient Referral Routine Tonsil cancer Ordered: 01/16/2020 documented as of this encounter Visit Diagnoses Diagnosis Tonsil cancer Malignant neoplasm of tonsil documented in this encounter Care Teams Band Salvager Relationship Specialty Start Date End Date Tiny Walters APRN [address] [place] [phone] PCP - General Family Medicine 12/01/19 04/07/24 documented as of this encounter
--- OUTSIDE RECORDS SUMMARY | 2024-05-31 01:28 | XMS_ITS | Encounter Summary ---
Author Organization [facility] [place] [address] Care Team Providers Care Policewoman Name Role Phone Tiny Walters APRN Primary Care Provider +1- [phone] Encounter Details Date Type Department Care Team (Late Contact Info) Description 01/25/2020 Orders Only Hematology/Oncology at [address] [phone] Gume Christy MD [address] [place] [address] [place] [address] Tonsil cancer Social History Tobacco Use Types [...] EST Office Visit Hematology/Oncolog y at [address] [phone] Tej Tipton MD [address] [facility] DR HEMATOLOGY [place] [address] Stacy Valle APRN [facility] [place] [address] 06/01/2024 10:30 AM EST Scheduled View Only [place] [address] 06/01/2024 11:00 AM EST Office Visit [place] [address] Luis E Chin MD [facility] [place] [address] 06/04/2024 8:30 AM EST Hospital Encounter Main Operating [place] [address] Rayshawn Suresh MD [facility] [place] [address] 06/04/2024 8:30 AM EST - 06/04/2024 1:05 PM EST Surgery Main Operating [place] [address] Rayshawn Suresh MD [facility] [place] [address] @THORACOSCOPY, SURG; W PLEURODESIS (WRVU 10.83) Scheduled [...] tonsil documented in this encounter Care Teams Policewoman Relationship Specialty Start Date End Date Tiny Walters APRN [address] [place] [phone] PCP - General Family Medicine 12/01/19 04/07/24 documented as of this encounter
--- OUTSIDE RECORDS SUMMARY | 2024-05-31 01:28 | XMS_ITS | Encounter Summary ---
Author Organization [facility] [place] [address] Care Team Providers Care Assembly Line Leader Name Role Phone Tiny Walters APRN Primary Care Provider +1- [phone] Encounter Details Date Type Department Care Team (Late st Contact Info) Description 01/01/2020 [place] [phone] Caroline Mix Social History Tobacco Use Types Packs/Day Years Used Date Smoking Tobacco: Never Smokeless Tobacco: Never Sex and Gender Information Value Date Recorded Sex Assigned at Not on file Gender Identity Not on file Sexual Orientation Not on file documented as of this encounter Miscellaneous Notes * Telephone Encounter - Noa Floyd - 01/24/2020 8:40 AM EDT 01/23 spoke to pt. pt would like closer to home. will call us back if needed. Advised patient that [facility] needs to be able to guarantee results before procedure on 01/27. * Telephone Encounter - Caroline Mix - 01/01/2020 9:59 AM EDT LM for pt to call to sched pre-op Covid test on 01/01 in [place] for 01/04 procedure documented in this encounter Plan of Treatment Upcoming Encounters Date Type Department Care Team (Late st Contact Info) Description 05/31/2024 11:30 AM EST Office Visit Hematology/Oncolog y at [address] [phone] Tej Tipton MD [address] [facility] HEMATOLOGY & [place] [address] Stacy Valle APRN [facility] [place] [address] 06/01/2024 10:30 AM EST Scheduled View Only [place] [phone] 06/01/2024 11:00 AM EST Office Visit [place] [address] Luis E Chin MD [facility] [place] [address] 06/04/2024 8:30 AM EST Hospital Encounter [place] [address] Rayshawn Suresh MD [facility] [place] [address] 06/04/2024 8:30 AM EST - 06/04/2024 1:05 PM EST Surgery [place] [address] Rayshawn Suresh MD [facility] [place] [address] @THORACOSCOPY, SURG; W PLEURODESIS (WRVU 10.83) Scheduled [...] on filedocumented in this encounter Care Teams Assembly Line Leader Relationship Specialty Start Date End Date Tiny Walters APRN [address] [place] [phone] PCP - General Family Medicine 12/01/19 04/07/24 documented as of this encounter
--- OUTSIDE RECORDS SUMMARY | 2024-05-31 01:28 | XMS_ITS | Encounter Summary ---
Author Organization [facility] [place] [address] Care Team Providers Care Respite Care Provider Name Role Phone Tiny Walters APRN Primary Care Provider +1- [phone] Encounter Details Date Type Department Care Team (Late st Contact Info) Description 12/22/2019 Orders Only [place] [phone] Mery Siddiqui RN Tonsillar tumor (Primary Dx) [...] EST Office Visit Hematology/Oncolog y at [address] [phone] Tej Tipton MD [address] [facility] HEMATOLOGY & [place] [address] Stacy Valle APRN [facility] [place] [address] 06/01/2024 10:30 AM EST Scheduled View Only [place] [address] 06/01/2024 11:00 AM EST Office Visit [place] [address] Luis E Chin MD [facility] [place] [address] 06/04/2024 8:30 AM EST Hospital Encounter [place] [phone] Rayshawn Suresh MD [facility] [place] [address] 06/04/2024 8:30 AM EST - 06/04/2024 1:05 PM EST Surgery [place] [address] Rayshawn Suresh MD [facility] DR [place] [address] @THORACOSCOPY, SURG; W PLEURODESIS (WRVU 10.83) Scheduled [...] system documented in this encounter Care Teams Respite Care Provider Relationship Specialty Start Date End Date Tiny Walters APRN [address] [place] [phone] PCP - General Family Medicine 12/01/19 04/07/24 documented as of this encounter
--- OUTSIDE RECORDS SUMMARY | 2024-05-31 01:28 | XMS_ITS | Encounter Summary ---
Author Organization [facility] Address [facility] [place] [address] Care Team Providers Care Cuff Setter Overlock Name Role Phone Tiny Walters APRN Primary Care Provider +1- [phone] Reason for Referral * Diagnostic Test (Routine) - Closed Specialty Diagnoses / Procedures Referred By Fritz lanier Referred To Contact Radiology Diagnoses Tonsil cancer Procedures NM PET CT Standard Plus Head and Neck Yrn Banuelos MD [facility] [place] [address] [place] [address] Referral ID Status Reason Start Date Expiration Date V isits Requested Visits Authorized [id number] Closed Specialty Service Requested 01/05/2020 02/10/2020 1 1 Reason for Visit * Reason Comments Other here fpr eval of viviane prabhjot, had an MRI done today Encounter Details Date Type Department Care Team (Late st Contact Info) Description 12/28/2019 4:00 PM EDT Office Visit [place] [address] Yrn Banuelos MD [facility] [place] [address] Tonsil cancer (Primary Dx) Social [...] - Inhaled Oxygen Concentration - - Weight 82.1 kg (181 lb) 12/28/2019 3:55 PM EDT a ctual Height 170.2 cm (5' 7) 12/28/2019 3:55 PM EDT Body Mass Index 28.35 12/28/2019 3:55 PM EDT documented in this encounter Progress Notes * Yrn Banuelos MD - 12/28/2019 4:00 PM EDT Subjective: Patient ID: Zen Pickering is a 39 y.o. male. HPI Zen Pickering is seen in consultation from Eros Wilhelm MD and Tiny Xiong APRN in regards to enlarged right tonsil unresponsive to medical management. The following records were reviewed: Office records, MRI of head and neck The history is obtained through patient interview, review of relevant records, and/or discussion with referring provider. Zen Pickering, previously healthy 39-year-old male, here for evaluation right- sided tonsil previously seen by telehealth visit on 12/08. MRI completed today prior [...] ~5x daily. No changes in his speech. His past medical history is otherwise unremarkable. ??He has a history of asthma which is active when he is active or exposed to the cold. ??He has no surgical history. Social: Denies ever smoking tobacco, chewing, or heavy alcohol use. No past medical history on file. No past surgical history on file. Current Outpatient Medications: ??? venlafaxine (Effexor) 25 mg Tablet, Take 25 mg by mouth 3 times daily., Disp: , Rfl: ??? albuteroL 90 mcg/actuation HFA Aerosol Inhaler, Inhale 2 puffs into the lungs every 4 hours as needed for Wheezing. Use with spacer, Disp: , Rfl: No current facility-administered medications for this visit. No Known Allergies Patient Active Problem List [...] file Gets together: Not on file Attends moravian service: Not on file Active member of [...] content normal. Judgment: Judgment normal. Assessment and Plan: Imaging: MRI w and w/o contrast reviewed with patient and his 1. ??A 4.0 cm mass centered in [...] ??No evidence of regional distant metastatic disease. Assessment/Plan After extensive conversation and review of imaging with both Ms. Pickering and his , we will proceed with biopsy in OR of R tonsil. It is likely this is a squamous cell carcinoma or possibly a lymphoma in origin. Risks/benefits were discussed and both Mr. Pickering and his voiced understanding. This was unfortunately a very difficult discussion with both of them, however I did state that we would do everything to help both of them and to find the best treatment regimen. Consent was signed inoffice today. He was counseled to decrease his tylenol use as 4g is the max recommended dose and touse ibuprofen if more pain management is needed. Based on pathology reports of the future biopsy, future management will be discussed with Mr. Pickering. documented in this encounter Plan of Treatment Upcoming Encounters Date Type Department Care Team (Late st Contact Info) Description 05/31/2024 11:30 AM EST Office Visit Hematology/Oncolog y at [address] [phone] Tej Tipton MD [address] [facility] HEMATOLOGY & [place] [address] Stacy Vlale APRN [facility] [place] [address] 06/01/2024 10:30 AM EST Scheduled View Only [place] [address] 06/01/2024 11:00 AM EST Office Visit [place] [phone] Luis E Chin MD [facility] [place] [address] 06/04/2024 8:30 AM EST Hospital Encounter [place] [phone] Rayshawn Suresh MD [facility] [place] [address] 06/04/2024 8:30 AM EST - 06/04/2024 1:05 PM EST Surgery [place] [phone] Rayshawn Suresh MD [facility] [place] [address] @THORACOSCOPY, SURG; W PLEURODESIS (WRVU 10.83) Scheduled [...] please contact the number below. ? Narrative 01/12/2020 11:18 AM EDT EXAMINATION: NM PET CT STANDARD PLUS HEAD AND NECK CLINICAL HISTORY: Suspected tonsil cancer. TECHNIQUE: Following IV injection of 43-jizftq-3-deoxyglucose (FDG) a standard uptake of approximately 60 [...] tonsil cancer. TECHNIQUE: Following IV injection of 57-ygznrb-9-deoxyglucose (FDG) astandard uptake of approximately 60 minutes, [...] right level 2 and 3 region (axial [id number] through 83). Several small FDG avid lymph [...] this report, please contact the number below. Yrn Banuelos MD IMG PET ORDERABLES documented in this encounter Visit Diagnoses Diagnosis Tonsil cancer- Primary Malignant neoplasm of tonsil Tonsil cancer Malignant neoplasm of tonsil documented in this encounter Care Teams Cuff Setter Overlock Relationship Specialty Start Date End Date Tiny Walters APRN [address] [place] [phone] PCP - General Family Medicine 12/01/19 04/07/24 documented as of this encounter
--- OUTSIDE RECORDS SUMMARY | 2024-05-31 01:28 | XMS_ITS | Encounter Summary ---
Author Organization [facility] Address [facility] [place] [address] Care Team Providers Care Clip Loading Machine Feeder Name Role Phone Tiny Walters APRN Primary Care Provider +1- [phone] Reason for Visit * Consultation (Routine) - Specialty Diagnoses / Procedures Referred By Fritz lanier Referred To Contact Radiation Oncology Diagnoses Tonsil cancer Nicole Miramontes MD [facility] [place] [address] St Rad Onc Treatment [address] [place] [phone] Referral ID Status Reason Start Date Expiration Date V isits Requested Visits Authorized [id number] Consult, Test & Treat 01/16/2020 01/15/2021 1 1 Encounter Details Date Type Department Care Team (Late st Contact Info) Description 01/19/2020 10:00 AM EDT Office Visit Radiation Oncology at [address] [address] Jose Martin Rae MD [facility] [place] [address] Tonsil cancer Social History Tobacco Use Types [...] Sign Reading Time Taken Comments Blood Pressure 127/77 01/19/2020 10:04 AM EDT Pulse 58 01/19/2020 10:04 AM EDT Temperature - - Respiratory Rate 18 01/19/2020 10:0 4 AM EDT Oxygen Saturation 100% 01/19/2020 10: 04 AM EDT Inhaled Oxygen Concentration - - Weight 83.1 kg (183 lb 3.2 oz) 01/19/2020 10:04 AM EDT with shoes Height 170.2 cm (5' 7.01) 01/19/2020 1 0:04 AM EDT carried forward Body Mass Index 28.69 01/19/2020 10:04 AM EDT documented in this encounter Progress Notes * Jose Martin Rae MD - 01/19/2020 10:00 AM EDT Images from the original note were not included. Radiation Oncology New Patient Visit PATIENT NAME: Zen Pickering DATE OF : 1980 HISTORY OF PRESENT ILLNESS Zen Pickering is a 39 y.o. male who is seen in consultation in the section of Radiation Oncology at [facility] regarding his HN cancer ONCOLOGIC HISTORY Overview: [...] was seen by Dr. Wilhelm ([facility]) in October of 2019 and was [...] metastases. 4. No distant sites of metastasis. Other Pertinent Issues: None Currently, he has the following symptoms: Symptom Description Ongoing Intervention Oropharyngeal Pain OP pain (feels like tongue is swollen), ranges in intensity, tolerable; has bothersome otalgia, ranging in extent from 1-10/10 pain, constant (localized to the right islam / ear) Tylenol 4000 mg; Dysphagia Oral phase dysphagia Xerostomia / Dysgeusia Moderate dysgeusia, no xerostomia Otalgia Right sided otalgia, 05/07, can escalate Dental Issues / Trismus He has not seen a dentist regularly. He us unable to open his mouth fully. Nutritional Intake Eating softer foods PEG Not present Neck Pain Denies Neck Fibrosis / Lymphedema Denies HN sensory Changes He notes numbness associated with the right side of his tongue and posterior tongue HN strength Changes Denies Voice Changes Denies Social Issues Travels 50 minutes to agencyQ Tobacco / EtOH Not currently smoking; occasional EtOH Total Pack Years Never smoker Other No Issues ECOG PS: 0 Grade [...] anterior. Tongue deviates to right on extension. Fullness of left tonsil evident. Eyes: Pupils: Pupils are equal, round, and [...] nerve deficit. Psychiatric: Behavior: Behavior normal. PROCEDURE Deferred, will perform prior to simulation HISTORY Allergies as of 01/19/2020 ??? (No Known Allergies) No past medical history on file. Past Surgical History: Procedure Laterality Date ??? PRO LARYNGOSCOPY, DIRCT, OP SCOPE, BIOPSY Bilateral 01/05/2020 LARYNGOSCOPY, MICROSCOPE, WITH BIOPSY (WRVU 3.55) performed by Yrn Banuelos MD at [facility] MAIN OR Social History Socioeconomic History [...] file Gets together: Not on file Attends evangelical service: Not on file Active member of [...] Social History Narrative ??? Not on file No family history on file. ROS: I reviewed and agree with the nursing review of systems accompanying this encounter. The remainder of the comprehensive review of systems was negative with the exception of the pertinent positives and negatives noted above. MEDICATIONS Current Outpatient Medications on File Prior to Visit Medication Sig Dispense Refill ??? acetaminophen (Tylenol) 500 mg Tablet Take 1,000 mg by mouth every 6 hours as needed for Pain. ??? venlafaxine (Effexor) 25 mg Tablet Take 25 mg by mouth 3 times daily. ??? albuteroL 90 mcg/actuation HFA Aerosol [...] DL ; Pathologic evaluation of the primary Further Staging Biospy of left tonsil Therapy Discussion Zen Pickering has been referred to discuss definitive radiotherapy. We discussed the relative risks and benefits of radiotherapy and surgical therapy. he has been discussed at [facility] tumor board and it was recommended that he proceed with definitive chemoradiotherapy due to the extent of anterior involvement of the oral tongue.These recommendations are in line with NCCN recommendations. There was also concern at regarding his left tonsil, and as such biopsy is planned prior to treatment. We discussed the rationale and logistics (including simulation, planning, and treatment) of definitive radiotherapy. We discussed the risks of therapy, including but not limited to short term sequelae (fatigue, skin erythema, mucositis, dysphagia, ageusia, xerostomia, weight loss) and retirement sequelae (tissue fibrosis, lymphedema, retirement dysphagia potentially requiring a permanent feeding tube, xerostomia, osteoradionecrosis, increased risk of dental caries, esophageal stricture, and the possibility of significant damage to soft tissue, bone or skin requiring surgical or medical intervention). Mr. Pickering expressed an understanding of these risks. The patient had a number of questions regarding optimal therapy and potential side effects. These questions were answered to his satisfaction Concurrent chemotherapy recommendations: to discuss with medical oncology Therapy Decision Proceed with definitive radiotherapy Supportive Care Prophylactic feeding tube: TBD Referral to Chair Installer / AUTOMOBILE ENGINE ASSEMBLER Dental Issues: he is to obtain dental clearance OTHER ISSUES None * Janeen Duarte RN - 01/19/2020 10:00 AM EDT RADIATION ONCOLOGY NURSING INITIAL NURSING ASSESSMENT IDENTIFICATION: Zen Pickering is a 39 y.o. year-old male with tonsil cancer. PRESENTING SYMPTOMS/CHIEF COMPLAINT: REVIEW OF SYSTEMS: Review of Systems Constitutional: Negative for unexpected weight change. HENT: Positive for sore throat. Negative for mouth sores, nosebleeds and voice change. Respiratory: Negative for cough and shortness of breath (well managed asthma). Gastrointestinal: Negative for constipation and diarrhea. Musculoskeletal: Gait problem: right associated with right ear ache. Neurological: Positive for headaches and numbness (tongue). Negative for speech difficulty. Gait problem: right associated with right ear ache. IN THE PAST 12 MONTHS HAVE YOU: Fallen more than one time? No Injured yourself as result of the fall? N/A Experienced difficulty with walking/problems with balance? No Do you use any assistive devices? No Any history of collagen vascular diseases:No Any Implanted Devices/Hardware: No If yes please put alert in ARIA patient summary Prior Radiotherapy: No Prior Chemotherapy: No Prior Hormone Therapy: No LEARNING ASSESSMENT REVIEWED: Yes ADVANCED DIRECTIVE: Does not have PAIN ASSESSMENT: [1] out of 10 *eD-H Adult PCS Flow Sheet if 4 or above Right head/ear SOCIAL ASSESSMENT: See EDH social assessment information entered. Support Systems: Barriers to treatment: Referrals/Interventions: TECHNOLOGY RISK INTERN per routine RADIATION SPECIFIC TEACHING: NCI Radiation Therapy and You Site specific teaching : Other: PLAN: Per Dr. Rae documented in this encounter Plan of Treatment Upcoming Encounters Date Type Department Care Team (Late st Contact Info) Description 05/31/2024 11:30 AM EST Office Visit Hematology/Oncolog y at [address] [phone] Tej [place] MD [address] [facility] HEMATOLOGY & [place] [address] Stacy Valle APRN [facility] [place] [address] 06/01/2024 10:30 AM EST Scheduled View [place] [phone] 06/01/2024 11:00 AM EST Office [place] [phone] Luis E Chin MD [facility] DR RADIATION ONCOLOGY [place], [place] [phone] 06/04/2024 8:30 AM EST Hospital Encounter [place] [address] Rayshawn Suresh MD [facility] [place] [address] 06/04/2024 8:30 AM EST - 06/04/2024 1:05 PM EST Surgery [place] [address] Rayshawn Suresh MD [facility] [place] [address] @THORACOSCOPY, SURG; W PLEURODESIS (WRVU 10.83) Scheduled [...] tonsil documented in this encounter Care Teams Clip Loading Machine Feeder Relationship Specialty Start Date End Date Tiny Walters APRN [address] [place] [phone] PCP - General Family Medicine 12/01/19 04/07/24 documented as of this encounter
--- OUTSIDE RECORDS SUMMARY | 2024-05-31 01:28 | XMS_ITS | Encounter Summary ---
Author Organization [facility] Address [facility] [place] [address] Care Team Providers Care Certified Surgical First Assistant Name Role Phone Tiny Walters APRN Primary Care Provider +1- [phone] Reason for Visit * Auth/Cert Specialty Diagnoses / Procedures Referred By Fritz t Referred To Contact Diagnoses r/o tonsil cancer Procedures PRO REMOVAL OF TONSILS, 12+ Y/O Tonsillectomy Referral ID Status Reason Start Date Expiration Date Visits Re quested Visits Authorized [id number] 1 1 Encounter Details Date Type Department Care Team (Latest Contact Info) Description 01/28/2020 10:09 AM EDT - 01/28/2020 2:58 PM EDT Hospital Encounter [place] [phone] Tiffany Banuelos MD [facility] [place] [address] Tonsil cancer (Primary Dx) Discharge Disposition: Home Social History Tobacco Use [...] Sign Reading Time Taken Comments Blood Pressure 137/91 01/28/2020 2:30 PM EDT Pulse 55 01/28/2020 1:12 PM EDT Temperature 36.2 ??C (97.2 ??F) 01/28/2020 1:12 PM ED T Respiratory Rate 16 01/28/2020 2:30 PM EDT Oxygen Saturation 100% 01/28/2020 2:30 PM EDT Inhaled Oxygen Concentration - - [...] discussed. Should you have questions, please call [phone] during business hours. After hours, call [phone] and ask to speak with the ENT resident information security associate. YOU HAVE BEEN PRESCRIBED AN OPIOID MEDICATION [...] Center 02/11/2020 9:30 AM Mehran Lewis PA [facility] 02/11/2020 10:[address] [facility] HEM ONC [facility] 02/11/2020 12:50 PM [facility] IR ROOM 4 IR [facility] Rad 02/14/2020 9:30 AM Gume Christy MD [facility] Hem Off [facility] 02/14/2020 10:[address] INFUSION, ROOM [facility] Hem Inf [facility] 02/14/2020 11:[address] [facility] Hem Off [facility] 02/23/2020 10:30 AM Carrie Jacob SLP [facility] Hem Off [facility] documented in this encounter Medications at Time [...] Brennan RN - 01/25/2020 9:00 AM EDT [facility] Interventional Radiology ? Interventional Radiology Nursing and/or [...] Banuelos MD - 01/28/2020 2:58 PM EDT [facility] Operative Note Patient Name: Zen Pickering : [id number] MR#: [id number] Case Date: 01/28/2020 Surgeon: Surgeon(s) and Role: [...] Operative Note Patient Name: Zen Pickering : [id number] MR#: [id number] Case Date: 01/28/2020 Surgeon: Surgeon(s) and Role: [...] EST Office Visit Hematology/Oncolog y at [address] [phone] Tej [place] MD [address] [facility] HEMATOLOGY & [place] [address] Stacy Valle APRN [facility] [place] [address] 06/01/2024 10:30 AM EST Scheduled View [place] [phone] 06/01/2024 11:00 AM EST Office [place] [phone] Luis E Chin MD [facility] DR [place] [address] 06/04/2024 8:30 AM EST Hospital Encounter [place] [address] Rayshawn Suresh MD [facility] [place] [address] 06/04/2024 8:30 AM EST - 06/04/2024 1:05 PM EST Surgery [place] [phone] Rayshawn Suresh MD [facility] DR [place] [address] @THORACOSCOPY, SURG; W PLEURODESIS (WRVU 10.83) Scheduled [...] PM EDT Removal Of Tonsils, 12+ Y/O (07750) 01/28/2020 11:51 AM EDT r/o tonsil cancer TONSILLECTOMY OVER AGE 12 Routine 01/28/2020 10:14 AM EDT documented in this encounter Results * Surgical Pathology Report (01/28/2020 12:34 PM EDT) Final Diagnosis [id number] ? Location: [facility]; A The signing pathologist has (i) examined the relevant preparation(s) for the specimen(s) and (ii) rendered or confirmed the diagnosis(es). . ?Surgical Pathology DIAGNOSIS Left tonsil, excision: - Reactive follicular lymphoid hyperplasia. - Actinomyces colonization. - There is no evidence of malignancy. Electronically signed by: ??MD Samantha, Ruel Aquino Verified: ??02/03/2020 ?Pathologist Performed at: ??-[facility] Dept. of Pathology, [place], [place] DISCUSSION The entire specimen was submitted [...] labeled [id number]. ??SAS 02/03/2020 10:32 AM EDT [facility] BILATERAL [place]AT[place] TONSILS / Unknown 01/28/2020 12:34 PM EDT 01/28/2020 12:34 PM EDT Tiffany Banuelos MD PATHOLOGY/CYTOLOGY ORDERABLES Performing Organization Address City/[facility]/ZIP Co de Phone Number [facility] [place] [address] * Specimen to Pathology (01/28/2020 12:34 PM EDT) AP Specimen 01/28/2020 12:3 4 PM EDT 01/28/2020 12:34 PM EDT Narrative [facility] - 01/28/2020 12:34 PM EDT Specimen requisition ordered. ??Separate Pathology report to follow Tiffany Banuelos MD PATHOLOGY/CYTOLOGY ORDERABLES Performing Organization Address City/[facility]/ZIP Co de Phone Number [facility] [place] [address] documented in this encounter Visit Diagnoses Diagnosis Tonsil cancer- Primary Malignant neoplasm of tonsil documented in this [...] per 24 hours. Begin oral analgesics when FURNITURE ASSEMBLER is discontinued., Routine Given 01/28/2020 2:52 PM EDT 1,000 mg oxyCODONE (Roxicodone) tablet 5 mg 5 mg, Oral, EVERY 4 HOURS PRN, Starting on Fri01/28/20 at 1327, Until Fri01/28/20 at 1457, Pain, moderate pain, May repeat 5 mg dose once in 30 minutes if pain not relieved. Begin oral analgesics when FURNITURE ASSEMBLER is discontinued. MAY USE IN SUSPENSION IF [...] per 24 hours. Begin oral analgesics when FURNITURE ASSEMBLER is discontinued., Routine 1452 (Given - Provid [...] pain not relieved. Begin oral analgesics when FURNITURE ASSEMBLER is discontinued. MAY USE IN SUSPENSION IF AVAILABLE, PACU Recovery, Routine 1331 (Given - Provid er: Griffin Solorio RN) documented in this encounter Care Teams Certified Surgical First Assistant Relationship Specialty Start Date End Date Tiny Walters APRN [address] [place] [phone] PCP - General Family Medicine 12/01/19 04/07/24 documented as of this encounter
--- OUTSIDE RECORDS SUMMARY | 2024-05-31 01:28 | XMS_ITS | Encounter Summary ---
Author Organization [facility] [place] [address] Care Team Providers Care Watch Manufacturing Supervisor Name Role Phone Tiny Walters APRN Primary Care Provider +1- [phone] Encounter Details Date Type Department Care Team (Late Contact Info) Description 12/22/2019 Telephone [place] [phone] Madison Raza Social History Tobacco Use Types Packs/Day Years Used Date Smoking Tobacco: Never Assessed Sex and Gender Information Value Date Recorded Sex Assigned at Not on file Gender Identity Not on file Sexual Orientation Not on file documented as of this encounter Miscellaneous Notes * Telephone Encounter - Madison Raza - 12/22/2019 12:33 PM EDT Patient sent [employer] message stating that he would like to keep the MRI appointment with [facility]. Unfortunately since he had expressed wanting to go elsewhere all MRI appts had been canceled and a new external referral was entered. Messaged Mery and she updated the APD order to [facility] so that they could protocol and call patient to schedule. I did request that they try and coordinate for the sameday as he is seeing BG on Dec 272019. They made a note and said that they will do there best tomake it happen. documented in this encounter Plan of Treatment Upcoming Encounters Date Type Department Care Team (Late Contact Info) Description 05/31/2024 11:30 AM EST Office Visit Hematology/Oncolog y at [address] [phone] Tej [place] MD [address] [facility] HEMATOLOGY & [place] [address] Stacy Valle APRN [facility] [place] [address] 06/01/2024 10:30 AM EST Scheduled View Only [place] [address] 06/01/2024 11:00 AM EST Office Visit [place] [phone] Luis E Chin MD [facility] [place] [address] 06/04/2024 8:30 AM EST Hospital Encounter [place] [address] Rayshawn Suresh MD [facility] [place] [address] 06/04/2024 8:30 AM EST - 06/04/2024 1:05 PM EST Surgery [place] [address] Rayshawn Suresh MD [facility] [place] [address] @THORACOSCOPY, SURG; W PLEURODESIS (WRVU 10.83) Scheduled [...] on filedocumented in this encounter Care Teams Watch Manufacturing Supervisor Relationship Specialty Start Date End Date Tiny Walters APRN [address] [place] [phone] PCP - General Family Medicine 12/01/19 04/07/24 documented as of this encounter
[2024-05-31 10:45] LABS: Abs Immature Grans 0.04 10^3/uL (0.0-0.06); Absolute Basophil Count 0.06 10^3/uL (0.0-0.2); Absolute Eosinophil Count 0.13 10^3/uL (0.0-0.7); Absolute Lymphocyte Count 1.35 10^3/uL (1.2-3.4); Absolute Neutrophil Count 3.41 10^3/uL (1.2-6.7); Basophils % 1.1 %; Eosinophils % 2.4 %; HGB 13.7 g/dL (13.5-17.5); Immature Grans % 0.7 %; MCH 27.8 pg (27.0-33.0); MCHC 33.4 % (32.0-36.0); MCV 83 fL (80-95); MPV 7.6 fL (8.0-11.0); Monocytes % 7.4 %; Neutrophils % 63.4 %; Platelet Count 493 10^3/uL (130-400); RBC 4.92 10^6/uL (4.36-5.78); RDW 13.3 % (11.8-14.1); RDW-SD 39.9 fL; WBC 5.39 10^3/uL (4.4-10.8)
[2024-05-31 11:13] LABS: ALT 93 U/L (16-63); AST 50 U/L (15-37); Albumin 2.9 g/dL (3.4-5.0); Alkaline Phosphatase 151 U/L (46-116); BUN 13 mg/dL (7-18); Bilirubin, Total 0.23 mg/dL (0.2-1.0); CREATININE 1.2 mg/dL (0.70-1.30); Calcium 9.3 mg/dL (8.5-10.1); Chloride 104 mmol/L (98-107); Estimated GFR 77.43 (mL/min/1.73m2); FREE T4 1.12 ng/dL (0.76-1.46); Glucose 92 mg/dL (74-106); Potassium 4.7 mmol/L (3.5-5.1); Sodium 140 mmol/L (136-145); TSH 2.22 uIU/mL (0.36-3.74); Total Protein 8.3 g/dL (6.4-8.2)
== END 2024-05-31 01:17 | disposition home or self-care (01) ==
PROVIDERS: PCP Family Medicine; Visit Provider Internal Medicine Hematology
DX: C34.91 Malignant neoplasm of unspecified part of right bronchus or lung (principal); Z79.899 Other long term (current) drug therapy
CPT/HCPCS: 36415; 80053; 84439; 84443; 85025

== ENCOUNTER 2024-06-21 02:25 | Outpatient (RCR) | payer BC, SELFPAY ==
[2024-06-14] MEDS: Normal Saline Flush 10 ML SYR IVP (12:22)
[2024-06-14 12:42] LABS: Abs Immature Grans 0.03 10^3/uL (0.0-0.06); Absolute Basophil Count 0.06 10^3/uL (0.0-0.2); Absolute Eosinophil Count 0.21 10^3/uL (0.0-0.7); Absolute Lymphocyte Count 1.55 10^3/uL (1.2-3.4); Absolute Monocyte Count 0.58 10^3/uL (0.1-0.8); Absolute Neutrophil Count 6.19 10^3/uL (1.2-6.7); Basophils % 0.7 %; Eosinophils % 2.4 %; HCT 37.7 % (40.0-50.0); HGB 12.5 g/dL (13.5-17.5); Immature Grans % 0.3 %; MCH 27.7 pg (27.0-33.0); MCHC 33.2 % (32.0-36.0); MCV 83 fL (80-95); MPV 8.3 fL (8.0-11.0); Monocytes % 6.7 %; Neutrophils % 71.9 %; Platelet Count 363 10^3/uL (130-400); RBC 4.52 10^6/uL (4.36-5.78); RDW 13.5 % (11.8-14.1); WBC 8.62 10^3/uL (4.4-10.8)
[2024-06-14 13:11] LABS: ALT 82 U/L (16-63); AST 31 U/L (15-37); Alkaline Phosphatase 167 U/L (46-116); Anion Gap 6.3 mmol/L (3-11); BUN 16 mg/dL (7-18); CO2 27.7 mmol/L (21.0-32.0); Calcium 9.3 mg/dL (8.5-10.1); Chloride 103 mmol/L (98-107); Estimated GFR 96.37 (mL/min/1.73m2); FREE T4 1.38 ng/dL (0.76-1.46); Glucose 91 mg/dL (74-106); Potassium 3.9 mmol/L (3.5-5.1); Sodium 137 mmol/L (136-145); TSH 0.41 uIU/mL (0.36-3.74); Total Protein 8.4 g/dL (6.4-8.2)
[2024-06-21] MEDS: Normal Saline Flush 10 ML SYR IVP (14:23)
[2024-06-21 14:30] LABS: Abs Immature Grans 0.02 10^3/uL (0.0-0.06); HCT 34.8 % (40.0-50.0); HGB 11.7 g/dL (13.5-17.5); MCH 27.7 pg (27.0-33.0); MCHC 33.6 % (32.0-36.0); MCV 82 fL (80-95); MPV 8.3 fL (8.0-11.0); Platelet Count 282 10^3/uL (130-400); RBC 4.23 10^6/uL (4.36-5.78); WBC 3.92 10^3/uL (4.4-10.8)
[2024-06-21 14:43] LABS: Absolute Neutrophil Count 2.35 10^3/uL (1.2-6.7); Atypical Lymphocytes % 8 %; Bands % 0 %
[2024-06-21 14:44] LABS: Absolute Basophil Count 0.04 10^3/uL (0.0-0.2); Absolute Eosinophil Count 0.27 10^3/uL (0.0-0.7); Absolute Monocyte Count 0.16 10^3/uL (0.1-0.8); Diff Comment Manual Differential; RBC Morphology Normal
[2024-06-21 14:54] LABS: ALT 69 U/L (16-63); AST 36 U/L (15-37); Albumin 2.8 g/dL (3.4-5.0); Alkaline Phosphatase 134 U/L (46-116); Anion Gap 7.9 mmol/L (3-11); BUN 12 mg/dL (7-18); Bilirubin, Total 0.29 mg/dL (0.2-1.0); CO2 28.1 mmol/L (21.0-32.0); CREATININE 0.9 mg/dL (0.70-1.30); Calcium 9.1 mg/dL (8.5-10.1); Chloride 102 mmol/L (98-107); Estimated GFR 109.36 (mL/min/1.73m2); FREE T4 1.17 ng/dL (0.76-1.46); Glucose 120 mg/dL (74-106); Potassium 3.6 mmol/L (3.5-5.1); Sodium 138 mmol/L (136-145); TSH 1.35 uIU/mL (0.36-3.74)
== END 2024-06-25 23:59 | disposition home or self-care (01) ==
LOC: INF 02:25
PROVIDERS: PCP Family Medicine; Visit Provider Internal Medicine Hematology
DX: C34.91 Malignant neoplasm of unspecified part of right bronchus or lung (principal); Z79.899 Other long term (current) drug therapy
CPT/HCPCS: 36591; 80053; 84439; 84443; 85025

== ENCOUNTER 2024-07-26 01:34 | Outpatient (RCR) | payer BC, SELFPAY ==
[2024-07-05 08:40] LABS: Abs Immature Grans 0.02 10^3/uL (0.0-0.06); Absolute Basophil Count 0.05 10^3/uL (0.0-0.2); Absolute Eosinophil Count 0.26 10^3/uL (0.0-0.7); Absolute Lymphocyte Count 1.13 10^3/uL (1.2-3.4); Absolute Monocyte Count 0.56 10^3/uL (0.1-0.8); Absolute Neutrophil Count 3.38 10^3/uL (1.2-6.7); Basophils % 0.9 %; Eosinophils % 4.8 %; HCT 37.9 % (40.0-50.0); HGB 12.6 g/dL (13.5-17.5); Immature Grans % 0.4 %; Lymphocytes % 20.9 %; MCH 27.8 pg (27.0-33.0); MCHC 33.2 % (32.0-36.0); MCV 84 fL (80-95); MPV 8.3 fL (8.0-11.0); Monocytes % 10.4 %; Neutrophils % 62.6 %; Platelet Count 269 10^3/uL (130-400); RBC 4.54 10^6/uL (4.36-5.78); RDW 15.1 % (11.8-14.1); RDW-SD 45.5 fL
[2024-07-05] MEDS: Normal Saline Flush 10 ML SYR IVP (08:53)
[2024-07-05 09:09] LABS: ALT 94 U/L (16-63); AST 57 U/L (15-37); Albumin 3.1 g/dL (3.4-5.0); Alkaline Phosphatase 150 U/L (46-116); Anion Gap 5.5 mmol/L (3-11); BUN 11 mg/dL (7-18); Bilirubin, Total 0.4 mg/dL (0.2-1.0); CO2 30.5 mmol/L (21.0-32.0); CREATININE 1.1 mg/dL (0.70-1.30); Calcium 9.1 mg/dL (8.5-10.1); Chloride 105 mmol/L (98-107); Estimated GFR 85.95 (mL/min/1.73m2); Glucose 91 mg/dL (74-106); Potassium 4.2 mmol/L (3.5-5.1); Sodium 141 mmol/L (136-145); TSH 0.71 uIU/mL (0.36-3.74); Total Protein 8.4 g/dL (6.4-8.2)
[2024-07-05 18:22] LABS: T4, Free 1.4 ng/dL (0.8-2.2)
[2024-07-26] MEDS: Normal Saline Flush 10 ML SYR IVP (08:27)
[2024-07-26 08:56] LABS: Abs Immature Grans 0.01 10^3/uL (0.0-0.06); Absolute Basophil Count 0.03 10^3/uL (0.0-0.2); Absolute Eosinophil Count 0.07 10^3/uL (0.0-0.7); Absolute Lymphocyte Count 1.04 10^3/uL (1.2-3.4); Absolute Monocyte Count 0.38 10^3/uL (0.1-0.8); Eosinophils % 2.3 %; HCT 37.7 % (40.0-50.0); HGB 12.6 g/dL (13.5-17.5); Immature Grans % 0.3 %; Lymphocytes % 34.3 %; MCH 28.8 pg (27.0-33.0); MCHC 33.4 % (32.0-36.0); MCV 86 fL (80-95); MPV 8.3 fL (8.0-11.0); Monocytes % 12.5 %; Neutrophils % 49.6 %; Platelet Count 278 10^3/uL (130-400); RBC 4.38 10^6/uL (4.36-5.78); RDW 16.9 % (11.8-14.1); RDW-SD 52.6 fL; WBC 3.03 10^3/uL (4.4-10.8)
[2024-07-26 09:24] LABS: ALT 159 U/L (16-63); AST 126 U/L (15-37); Albumin 3.3 g/dL (3.4-5.0); Alkaline Phosphatase 120 U/L (46-116); Anion Gap 8.9 mmol/L (3-11); BUN 16 mg/dL (7-18); Bilirubin, Total 0.5 mg/dL (0.2-1.0); CO2 27.1 mmol/L (21.0-32.0); CREATININE 1.1 mg/dL (0.70-1.30); Calcium 9.2 mg/dL (8.5-10.1); Chloride 105 mmol/L (98-107); Estimated GFR 85.95 (mL/min/1.73m2); FREE T4 1.17 ng/dL (0.76-1.46); Glucose 92 mg/dL (74-106); Potassium 4.2 mmol/L (3.5-5.1); Sodium 141 mmol/L (136-145); TSH 1.37 uIU/mL (0.36-3.74); Total Protein 8.3 g/dL (6.4-8.2)
== END 2024-07-26 23:59 | disposition home or self-care (01) ==
LOC: INF 01:34
PROVIDERS: PCP Family Medicine; Visit Provider Internal Medicine Hematology
DX: C34.91 Malignant neoplasm of unspecified part of right bronchus or lung (principal); Z79.899 Other long term (current) drug therapy
CPT/HCPCS: 36591; 80053; 84439; 84443; 85025

== ENCOUNTER 2024-08-16 02:17 | Outpatient (RCR) | payer BC, SELFPAY ==
[2024-08-02] MEDS: Normal Saline Flush 10 ML SYR IVP (13:21)
[2024-08-02 13:31] LABS: Abs Immature Grans 0.01 10^3/uL (0.0-0.06); Absolute Eosinophil Count 0.03 10^3/uL (0.0-0.7); HCT 35.1 % (40.0-50.0); HGB 11.9 g/dL (13.5-17.5); MCH 28.7 pg (27.0-33.0); MCHC 33.9 % (32.0-36.0); MCV 85 fL (80-95); MPV 8.6 fL (8.0-11.0); Platelet Count 139 10^3/uL (130-400); RBC 4.14 10^6/uL (4.36-5.78); RDW 15.4 % (11.8-14.1); RDW-SD 47.9 fL
[2024-08-02 13:49] LABS: Absolute Basophil Count 0.03 10^3/uL (0.0-0.2); Absolute Lymphocyte Count 1.07 10^3/uL (1.2-3.4); Absolute Monocyte Count 0.13 10^3/uL (0.1-0.8); Absolute Neutrophil Count 1.35 10^3/uL (1.2-6.7); Atypical Lymphocytes % 3 %; Diff Comment Manual Differential; RBC Morphology Normal
[2024-08-02 13:59] LABS: ALT 108 U/L (16-63); AST 48 U/L (15-37); Albumin 3.5 g/dL (3.4-5.0); Alkaline Phosphatase 130 U/L (46-116); Anion Gap 4.2 mmol/L (3-11); BUN 14 mg/dL (7-18); Bilirubin, Total 0.5 mg/dL (0.2-1.0); CO2 28.8 mmol/L (21.0-32.0); Calcium 9.1 mg/dL (8.5-10.1); Chloride 104 mmol/L (98-107); Estimated GFR 96.37 (mL/min/1.73m2); FREE T4 0.88 ng/dL (0.76-1.46); Glucose 112 mg/dL (74-106); Potassium 3.7 mmol/L (3.5-5.1); Sodium 137 mmol/L (136-145); TSH 4.43 uIU/mL (0.36-3.74); Total Protein 8.2 g/dL (6.4-8.2)
[2024-08-16] MEDS: Normal Saline Flush 10 ML SYR IVP (09:35)
[2024-08-16 09:43] LABS: Abs Immature Grans 0.01 10^3/uL (0.0-0.06); Absolute Basophil Count 0.03 10^3/uL (0.0-0.2); Absolute Eosinophil Count 0.07 10^3/uL (0.0-0.7); Absolute Lymphocyte Count 1.22 10^3/uL (1.2-3.4); Absolute Neutrophil Count 1.75 10^3/uL (1.2-6.7); Basophils % 0.8 %; HCT 38.8 % (40.0-50.0); HGB 12.8 g/dL (13.5-17.5); Immature Grans % 0.3 %; Lymphocytes % 34.1 %; MCV 88 fL (80-95); MPV 8.4 fL (8.0-11.0); Neutrophils % 48.8 %; Platelet Count 273 10^3/uL (130-400); RBC 4.42 10^6/uL (4.36-5.78); RDW 17.1 % (11.8-14.1); RDW-SD 54.7 fL; WBC 3.58 10^3/uL (4.4-10.8)
[2024-08-16 10:12] LABS: ALT 135 U/L (16-63); AST 75 U/L (15-37); Albumin 3.6 g/dL (3.4-5.0); Alkaline Phosphatase 111 U/L (46-116); Anion Gap 6.5 mmol/L (3-11); BUN 12 mg/dL (7-18); Bilirubin, Total 0.5 mg/dL (0.2-1.0); CO2 27.5 mmol/L (21.0-32.0); CREATININE 1.2 mg/dL (0.70-1.30); Calcium 9.2 mg/dL (8.5-10.1); Chloride 104 mmol/L (98-107); Estimated GFR 77.43 (mL/min/1.73m2); Glucose 94 mg/dL (74-106); Potassium 4.1 mmol/L (3.5-5.1); Sodium 138 mmol/L (136-145); Total Protein 8.2 g/dL (6.4-8.2)
== END 2024-08-25 23:59 | disposition home or self-care (01) ==
LOC: INF 02:17
PROVIDERS: PCP Family Medicine; Visit Provider Internal Medicine Hematology
DX: C34.91 Malignant neoplasm of unspecified part of right bronchus or lung (principal); Z79.899 Other long term (current) drug therapy; Z45.2 Encounter for adjustment and management of vascular access device
CPT/HCPCS: 36591; 80053; 84439; 84443; 85025

== ENCOUNTER 2024-09-06 03:29 | Outpatient (RCR) | payer BC, SELFPAY ==
[2024-09-06] MEDS: Normal Saline Flush 10 ML SYR IVP (08:12)
[2024-09-06 08:49] LABS: Abs Immature Grans 0.02 10^3/uL (0.0-0.06); Absolute Basophil Count 0.03 10^3/uL (0.0-0.2); Absolute Eosinophil Count 0.06 10^3/uL (0.0-0.7); Absolute Monocyte Count 0.48 10^3/uL (0.1-0.8); Absolute Neutrophil Count 1.69 10^3/uL (1.2-6.7); Basophils % 0.8 %; Eosinophils % 1.7 %; HCT 37.4 % (40.0-50.0); HGB 12.8 g/dL (13.5-17.5); Immature Grans % 0.6 %; Lymphocytes % 36.3 %; MCH 29.5 pg (27.0-33.0); MCHC 34.2 % (32.0-36.0); MCV 86 fL (80-95); MPV 8.2 fL (8.0-11.0); Monocytes % 13.4 %; Neutrophils % 47.2 %; Platelet Count 282 10^3/uL (130-400); RBC 4.34 10^6/uL (4.36-5.78); RDW 16.7 % (11.8-14.1); WBC 3.58 10^3/uL (4.4-10.8)
[2024-09-06 09:26] LABS: ALT 102 U/L (16-63); AST 77 U/L (15-37); Albumin 3.6 g/dL (3.4-5.0); Alkaline Phosphatase 113 U/L (46-116); Anion Gap 6.1 mmol/L (3-11); BUN 15 mg/dL (7-18); Bilirubin, Total 0.4 mg/dL (0.2-1.0); CO2 27.9 mmol/L (21.0-32.0); CREATININE 1.2 mg/dL (0.70-1.30); Calcium 9.4 mg/dL (8.5-10.1); Chloride 103 mmol/L (98-107); Estimated GFR 77.43 (mL/min/1.73m2); FREE T4 0.89 ng/dL (0.76-1.46); Glucose 90 mg/dL (74-106); Potassium 4.2 mmol/L (3.5-5.1); Sodium 137 mmol/L (136-145); TSH 7.45 uIU/mL (0.36-3.74); Total Protein 8.3 g/dL (6.4-8.2)
== END 2024-09-25 23:59 | disposition home or self-care (01) ==
LOC: INF 03:29
PROVIDERS: PCP Family Medicine; Visit Provider Internal Medicine Hematology
DX: C34.91 Malignant neoplasm of unspecified part of right bronchus or lung (principal); Z79.899 Other long term (current) drug therapy; Z45.2 Encounter for adjustment and management of vascular access device
CPT/HCPCS: 36591; 80053; 84439; 84443; 85025

== ENCOUNTER 2024-09-27 12:03 | Outpatient (RCR) | payer BC, SELFPAY ==
[2024-09-27] MEDS: Normal Saline Flush 10 ML SYR IVP (12:10)
== END 2024-10-25 23:59 | disposition home or self-care (01) ==
LOC: INF 12:03
PROVIDERS: PCP Family Medicine; Visit Provider Internal Medicine Hematology
DX: C34.91 Malignant neoplasm of unspecified part of right bronchus or lung (principal); Z79.899 Other long term (current) drug therapy; Z45.2 Encounter for adjustment and management of vascular access device
CPT/HCPCS: 36591

== ENCOUNTER 2024-10-18 09:30 | Outpatient (RCR) | payer BC, SELFPAY ==
[2024-09-27 12:22] LABS: Abs Immature Grans 0.02 10^3/uL (0.0-0.06); Absolute Basophil Count 0.03 10^3/uL (0.0-0.2); Absolute Eosinophil Count 0.05 10^3/uL (0.0-0.7); Absolute Lymphocyte Count 1.13 10^3/uL (1.2-3.4); Absolute Monocyte Count 0.52 10^3/uL (0.1-0.8); Basophils % 0.8 %; Eosinophils % 1.3 %; HGB 12.5 g/dL (13.5-17.5); Immature Grans % 0.5 %; Lymphocytes % 30.1 %; MCH 29.2 pg (27.0-33.0); MCHC 32.9 % (32.0-36.0); MCV 89 fL (80-95); MPV 8.4 fL (8.0-11.0); Monocytes % 13.9 %; Neutrophils % 53.4 %; Platelet Count 319 10^3/uL (130-400); RBC 4.28 10^6/uL (4.36-5.78); RDW 15.9 % (11.8-14.1); RDW-SD 51.8 fL; WBC 3.75 10^3/uL (4.4-10.8)
[2024-09-27 12:44] LABS: ALT 66 U/L (16-63); AST 45 U/L (15-37); Albumin 3.6 g/dL (3.4-5.0); Alkaline Phosphatase 123 U/L (46-116); Anion Gap 8.4 mmol/L (3-11); BUN 15 mg/dL (7-18); Bilirubin, Total 0.4 mg/dL (0.2-1.0); CO2 28.6 mmol/L (21.0-32.0); CREATININE 1.1 mg/dL (0.70-1.30); Chloride 102 mmol/L (98-107); Estimated GFR 85.42 (mL/min/1.73m2); FREE T4 0.84 ng/dL (0.76-1.46); Glucose 95 mg/dL (74-106); Potassium 3.8 mmol/L (3.5-5.1); Sodium 139 mmol/L (136-145); Total Protein 8.5 g/dL (6.4-8.2)
[2024-10-18 09:59] LABS: Abs Immature Grans 0.01 10^3/uL (0.0-0.06); Absolute Basophil Count 0.05 10^3/uL (0.0-0.2); Absolute Eosinophil Count 0.14 10^3/uL (0.0-0.7); Absolute Lymphocyte Count 1.08 10^3/uL (1.2-3.4); Absolute Monocyte Count 0.52 10^3/uL (0.1-0.8); Absolute Neutrophil Count 2.86 10^3/uL (1.2-6.7); Basophils % 1.1 %; HCT 35.4 % (40.0-50.0); Immature Grans % 0.2 %; Lymphocytes % 23.2 %; MCH 30.2 pg (27.0-33.0); MCHC 33.9 % (32.0-36.0); MCV 89 fL (80-95); MPV 8.5 fL (8.0-11.0); Monocytes % 11.2 %; Neutrophils % 61.3 %; Platelet Count 318 10^3/uL (130-400); RBC 3.97 10^6/uL (4.36-5.78); RDW 14.6 % (11.8-14.1); RDW-SD 48.1 fL; WBC 4.66 10^3/uL (4.4-10.8)
[2024-10-18 10:28] LABS: ALT 48 U/L (16-63); AST 36 U/L (15-37); Albumin 3.2 g/dL (3.4-5.0); Alkaline Phosphatase 122 U/L (46-116); Anion Gap 8.8 mmol/L (3-11); BUN 12 mg/dL (7-18); Bilirubin, Total 0.5 mg/dL (0.2-1.0); CO2 27.2 mmol/L (21.0-32.0); CREATININE 1.3 mg/dL (0.70-1.30); Calcium 8.8 mg/dL (8.5-10.1); Chloride 103 mmol/L (98-107); Glucose 93 mg/dL (74-106); Potassium 3.8 mmol/L (3.5-5.1); Sodium 139 mmol/L (136-145); Total Protein 7.8 g/dL (6.4-8.2)
[2024-10-18] MEDS: Normal Saline Flush 10 ML SYR IVP (10:34)
== END 2024-10-25 23:59 | disposition home or self-care (01) ==
LOC: INF 09:30
PROVIDERS: PCP Family Medicine; Visit Provider Internal Medicine Hematology
DX: C34.91 Malignant neoplasm of unspecified part of right bronchus or lung (principal); Z79.899 Other long term (current) drug therapy; Z45.2 Encounter for adjustment and management of vascular access device
CPT/HCPCS: 36591; 80053; 84439; 84443; 85025

== ENCOUNTER 2024-11-15 12:23 | Outpatient (RCR) | payer BC, SELFPAY ==
[2024-11-15 12:49] LABS: Abs Immature Grans 0.02 10^3/uL (0.0-0.06); HCT 35.4 % (40.0-50.0); HGB 11.8 g/dL (13.5-17.5); Immature Grans % 0.3 %; MCH 29.1 pg (27.0-33.0); MCHC 33.3 % (32.0-36.0); MCV 87 fL (80-95); MPV 9.0 fL (8.0-11.0); Platelet Count 254 10^3/uL (130-400); RBC 4.06 10^6/uL (4.36-5.78); RDW 13.2 % (11.8-14.1); RDW-SD 41.9 fL; WBC 6.64 10^3/uL (4.4-10.8)
[2024-11-15 13:20] LABS: ALT 31 U/L (16-63); AST 31 U/L (15-37); Albumin 3.3 g/dL (3.4-5.0); Alkaline Phosphatase 134 U/L (46-116); Anion Gap 7.8 mmol/L (3-11); BUN 11 mg/dL (7-18); Bilirubin, Total 0.5 mg/dL (0.2-1.0); CO2 28.2 mmol/L (21.0-32.0); Calcium 9.1 mg/dL (8.5-10.1); Chloride 100 mmol/L (98-107); Estimated GFR 76.95 (mL/min/1.73m2); Glucose 76 mg/dL (74-106); Potassium 3.6 mmol/L (3.5-5.1); Sodium 136 mmol/L (136-145); TSH 15.43 uIU/mL (0.36-3.74); Total Protein 8.4 g/dL (6.4-8.2)
[2024-11-15] MEDS: Normal Saline Flush 10 ML SYR IVP (13:35)
== END 2024-11-25 23:59 | disposition home or self-care (01) ==
LOC: INF 12:23
PROVIDERS: PCP Family Medicine; Visit Provider Internal Medicine Hematology
DX: C34.91 Malignant neoplasm of unspecified part of right bronchus or lung (principal); Z79.899 Other long term (current) drug therapy; Z45.2 Encounter for adjustment and management of vascular access device
CPT/HCPCS: 36591; 80053; 84439; 84443; 85025

== ENCOUNTER 2025-01-24 14:43 | Outpatient (RCR) | payer BC, SELFPAY ==
[2025-01-24] MEDS: Normal Saline Flush 10 ML SYR IVP (14:48)
[2025-01-24 14:57] LABS: Abs Immature Grans 0.02 10^3/uL (0.0-0.06); HCT 33.5 % (40.0-50.0); HGB 11.2 g/dL (13.5-17.5); Immature Grans % 0.3 %; MCH 28.2 pg (27.0-33.0); MCHC 33.4 % (32.0-36.0); MCV 84 fL (80-95); MPV 8.4 fL (8.0-11.0); Platelet Count 241 10^3/uL (130-400); RBC 3.97 10^6/uL (4.36-5.78); RDW 16.0 % (11.8-14.1); RDW-SD 48.5 fL; WBC 6.14 10^3/uL (4.4-10.8)
[2025-01-24 15:22] LABS: ALT 32 U/L (16-63); AST 29 U/L (15-37); Albumin 3.1 g/dL (3.4-5.0); Alkaline Phosphatase 173 U/L (46-116); Anion Gap 6.8 mmol/L (3-11); BUN 11 mg/dL (7-18); Bilirubin, Total 0.6 mg/dL (0.2-1.0); CO2 30.2 mmol/L (21.0-32.0); Calcium 9.1 mg/dL (8.5-10.1); Chloride 100 mmol/L (98-107); Glucose 96 mg/dL (74-106); Potassium 3.7 mmol/L (3.5-5.1); Sodium 137 mmol/L (136-145); TSH 2.94 uIU/mL (0.36-3.74); Total Protein 8.0 g/dL (6.4-8.2)
== END 2025-01-25 23:59 | disposition home or self-care (01) ==
LOC: INF 14:43
PROVIDERS: PCP Family Medicine; Visit Provider Internal Medicine Hematology
DX: Z45.2 Encounter for adjustment and management of vascular access device (principal); C34.91 Malignant neoplasm of unspecified part of right bronchus or lung; Z79.899 Other long term (current) drug therapy
CPT/HCPCS: 36591; 80053; 84439; 84443; 85025

== ENCOUNTER 2025-03-21 14:13 | Outpatient (RCR) | payer BC, SELFPAY ==
[2025-03-21 14:28] LABS: Abs Immature Grans 0.02 10^3/uL (0.0-0.06); HCT 33.6 % (40.0-50.0); HGB 11.1 g/dL (13.5-17.5); Immature Grans % 0.3 %; MCH 28.7 pg (27.0-33.0); MCHC 33.0 % (32.0-36.0); MCV 87 fL (80-95); MPV 8.4 fL (8.0-11.0); Platelet Count 265 10^3/uL (130-400); RBC 3.87 10^6/uL (4.36-5.78); RDW 15.1 % (11.8-14.1); RDW-SD 48.3 fL; WBC 6.78 10^3/uL (4.4-10.8)
[2025-03-21 14:49] LABS: ALT 20 U/L (10-49); AST 28 U/L (<34); Albumin 4.2 g/dL (3.4-5.0); Alkaline Phosphatase 142 U/L (46-116); Anion Gap 9.2 mmol/L (3-11); BUN 17 mg/dL (9-23); Bilirubin, Total 0.40 mg/dL (0.2-1.2); CO2 26.8 mmol/L (20.0-31.0); Calcium 8.8 mg/dL (8.3-10.6); Chloride 103 mmol/L (98-107); Glucose 110 mg/dL (74-106); Potassium 3.5 mmol/L (3.5-5.1); Sodium 139 mmol/L (136-145); Total Protein 7.8 g/dL (5.7-8.2)
== END 2025-03-27 23:59 | disposition home or self-care (01) ==
LOC: INF 14:13
PROVIDERS: PCP Family Medicine; Visit Provider Internal Medicine Hematology
DX: C34.91 Malignant neoplasm of unspecified part of right bronchus or lung (principal)
CPT/HCPCS: 36415; 80053; 85025